=== PATIENT | male | born 1940 | race Caucasian/White ===

== ENCOUNTER → 2016-10-08 | Outpatient (CLI) | payer OTHER ==
[~2016-10-08] MED LIST: ASPI81TA28 PO; CIPR-255 PO; CLOP1TAB5 PO; CMD5 PO; CODCAP; FLM4 PO; GARLTAB3 PO; GLC500 PO; HYDROXYUREA PO; IBUP-103 PO; LISI20TA55 PO; LOVA10TA3 PO; LSN/2025 PO; LVNIS120 SQ; MULT-506 PO; MULTTAB27 PO; OXYC7.5T65 PO; PHEN-775 PO; PLV75 PO; POTA-327 PO; PRD/1 PO; ROSU5TAB PO; ULT50X PO
[2016-10-08 10:33] LABS: ALT/SGPT 21 U/L (12-78); BLOOD UREA NITROGEN 21 mg/dl (7-18); BUN/CREATININE RATIO 17.4 (10-20); CALCIUM 8.8 mg/dl (8.5-10.1); CARBON DIOXIDE 24 mmol/L (21-32); CHLORIDE 102 mmol/L (98-107); GLUCOSE 222 mg/dl (70-99); POTASSIUM 3.7 mmol/L (3.5-5.1); SODIUM 137 mmol/L (136-145)
[2016-10-08 10:36] LABS: ALB/GLOB RATIO 1.1 (0.9-2); ALKALINE PHOSPHATASE 76 U/L (45-117); AST/SGOT 17 U/L (15-37)
[2016-10-08 10:49] LABS: BASO % 0.3 %; BASO ABS # 0.02 K/uL (0-0.2); COMPLETE YES; EOS % 0.6 %; HEMATOCRIT 39.2 % (42-52); IG% 0.1 %; LYMPH ABS # 1.51 K/uL (1.2-3.4); MEAN CELL VOLUME 101.6 fL (80-100); MEAN CORPUSCULAR HEMOGLOBIN 36.3 pg (25-34); MEAN CORPUSCULAR HGB CONC 35.7 g/dl (32-36); MEAN PLATELET VOLUME 10.6 fL (7.4-10.4); MONO % 4.7 %; NEUT % 75.3 %; PLATELET COUNT 242 K/uL (130-400); RED BLOOD COUNT 3.86 M/uL (4.7-6.1); WHITE BLOOD COUNT 7.94 K/uL (4.8-10.8)
== END | disposition home or self-care (01) ==
LOC: C.LAB 09:24
PROVIDERS: ATTEND Nurse Practitioner Family
DX: D45 Polycythemia vera (principal)

== ENCOUNTER 2016-11-15 09:14 | Emergency (ER) | payer OTHER ==
[~2016-11-15] VITALS: Ht 175.3 cm; Wt 81.6 kg
[~2016-11-15 09:14] MED LIST changes: -CIPR-255 PO; -CLOP1TAB5 PO; -CMD5 PO; -CODCAP; -GARLTAB3 PO; -LOVA10TA3 PO; -LSN/2025 PO; -LVNIS120 SQ; -MULT-506 PO; -OXYC7.5T65 PO; -PHEN-775 PO; -PLV75 PO; -ROSU5TAB PO; -ULT50X PO
[2016-11-15 09:23] VITALS: TEMP 36.7; Ht 175.3 cm; Wt 81.6 kg
[2016-11-15] MEDS ORDERED: LOVA10TA3 PO (09:38)
--- NOTE | 2016-11-15 09:42 | EMERGENCY ROOM VISIT NOTE ---
ED Visit Note First contact with patient: 09:25 Patient was seen by our PA/YOUTH CARE SPECIALIST. I was involved in the patient's care and did evaluate the patient myself. I was involved in the care throughout the ER stay. The patient presents with a piece of tick still caught in the right posterior proximal thigh. There is no surrounding cellulitis. He does have concerns for the tick being a deer tick. Doxycycline prophylaxis will be given, the remaining portion of the tick will be removed.
[2016-11-15] MEDS ORDERED: DOXYCYCLINE HYCLATE 100 MG CAP PO ONE (09:45)
[2016-11-15] MEDS ORDERED: XYLOCAINE 1%/SOD BICARB 20 ML VIAL INFIL ONE (09:46)
[2016-11-15 10:18] VITALS: BP 144/81; PULSE 78; O2SAT 98
--- NOTE | 2016-11-15 10:21 | EMERGENCY ROOM VISIT NOTE ---
History First contact with patient: 09:25 Chief Complaint: BITE Stated Complaint: PART OF A TICK IN LEG History of Present Illness The patient is a 76 year old male who presents to the Emergency Room with complaints of a tick bite to the right hip. The patient is uncertain when he picked up a tick. He was outside on Friday. He just noticed the tick this morning. He attempted to remove it but only removed part of it. He is here requesting remaining tick removal. He denies any pain to the area. Tetanus immunization is up-to-date. Review of Systems 10 system review was performed and was negative except for pertinent positives and negatives as indicated in history of present illness Past Medical/Surgical History Medical Problems: (1) Benign hypertension (2) Diabetes (3) Hyperlipidemia (4) Right Hip Surgery Social History Smoking Status: Former Smoker Drug Use: none Marital Status: Housing Status: lives with family Occupation Status: retired Current/Historical Medications Scheduled Aspirin (Aspirin Ec), 81 MG PO DAILY Lisinopril/Hctz (Prinzide 20-25MG), 1 TAB PO DAILY Lovastatin (Mevacor), 10 MG PO HS Metformin HCL (Glucophage *), 1,000 MG PO BID Multiple Vitamins W/ Minerals (Oncovite), 1 TAB PO QD@08 Potassium Ext Rel (Klor-Con), 10 MEQ PO DAILY Prednisone (Prednisone), 2 MG PO QPM Tamsulosin Hcl (Flomax *), 0.4 MG PO DAILY [Hydroxyurea], 500 MG PO BID Scheduled PRN Ibuprofen Tab (Advil), 400 MG PO Q6 PRN for Pain Allergies Coded Allergies: Cilostazol (Verified Allergy, Unknown, DIARRHEA, 11/15/16) Sulfa Antibiotics (Verified Allergy, Unknown, HIVES, 11/15/16) Physical Exam Vital Signs Date Time Temp Pulse Resp B/P Pulse Ox O2 Delivery O2 Flow Rate FiO2 11/15/16 09:23 36.7 79 17 180/74 94 Room Air Physical Exam CONSTITUTIONAL: Healthy and well nourished. Alert and oriented X 3 with positive affect. She does not appear in any acute distress. HEENT: Normocephalic, atraumatic. Pupils equal, round and reactive. NECK: Full active range of motion without discomfort. RESPIRATORY: Clear to auscultation bilaterally with no wheezing, crackles, rhonchi or stridor. CARDIOVASCULAR: Regular rate and rhythm with no murmurs, rubs or gallops. MUSCULOSKELETAL: Examination of the right posterior lateral hip region shows a remnant tick foreign body. There is a noticeable 8mm venous aguero. There is no overriding erythema or induration. Prior surgical incision is noted. INTEGUMENTARY: No rash or other significant dermatologic conditions noted. NEUROLOGIC: No focal neurologic deficits noted. Medical Decision & Procedures Procedure Patient consented to tick removal under local anesthesia. The area was painted with iodine and allowed to dry. Sterile foot was created. Using buffered 1% lidocaine without epinephrine, and underlying local wheal was administered. A 27-gauge needle was then used to elevate the tick while sharply excising the tick with a #11 scalpel. The area was then further cleansed and covered with a bacitracin Band-Aid. ED Course Patient history and physical exam were performed. Nurse's notes were reviewed. Removal was performed under local anesthesia. Because of the uncertainty as to how long the tick has been attached, the patient was prophylactically treated with doxycycline 200 mg orally. The patient was instructed to watch for any signs of wound infection, along with rash consistent with erythema migrans. He was instructed to follow-up with his PCP for any developing rash, fever, joint aches, headache or other flulike symptoms. The patient was happy with plan of care, and voiced understanding of all discharge instructions. The patient was also seen and evaluated by Dr. Brito, ED attending physician, who agrees with workup and plan of care. Impression Primary Impression: Tick bite of hip Departure Information Dispostion Home / Self-Care Forms HOME CARE DOCUMENTATION FORM, IMPORTANT VISIT INFORMATION Patient Instructions [facility] [employer] Additional Instructions Keep wound clean and covered with an antibiotic ointment and bandage until it heals. Watch for any worsening redness around the tick bite site. Over the next month, watch for any developing "bull's-eye" lesion, fevers, chills, headaches or joint aches. If this develops, contact her family doctor for further evaluation. Problem Qualifiers Primary Impression: Tick bite of hip Encounter type: initial encounter Laterality: right Qualified Codes: S70.261A - Insect bite (nonvenomous), right hip, initial encounter; W57.XXXA - Bitten or stung by nonvenomous insect and other nonvenomous arthropods, initial encounter
[2017-02-03] MEDS ORDERED: LSN/2025 PO (08:14)
[2017-02-03] MEDS ORDERED: MULT-506 PO (08:14)
[2017-02-03] MEDS ORDERED: GARLTAB3 PO (08:14)
[2017-02-20] MEDS ORDERED: CODCAP4 (09:34)
[2017-02-20] MEDS ORDERED: PHEN-775 PO (12:10)
[2017-02-20] MEDS ORDERED: OXYC7.5T65 PO (12:10)
[2017-02-20] MEDS ORDERED: CIPR-255 PO (12:10)
[2017-03-26] MEDS ORDERED: PLV75 PO (16:15)
[2017-04-07] MEDS ORDERED: LVNIS120 SQ (13:59)
[2017-04-07] MEDS ORDERED: ULT50X PO (13:59)
[2017-04-07] MEDS ORDERED: CMD5 PO (13:59)
== END 2016-11-15 10:18 | disposition home or self-care (01) ==
LOC: C.EDB 09:15 → C.EDA 10:18
DX: S71.051A Open bite, right hip, initial encounter (principal); W57.XXXA Bitten or stung by nonvenomous insect and other nonvenomous arthropods, initial encounter; I10 Essential (primary) hypertension; E78.5 Hyperlipidemia, unspecified; E11.9 Type 2 diabetes mellitus without complications; Z98.890 Other specified postprocedural states; Z87.891 Personal history of nicotine dependence; Z79.82 Long term (current) use of aspirin; Z79.84 Long term (current) use of oral hypoglycemic drugs; Z79.899 Other long term (current) drug therapy; Z88.2 Allergy status to sulfonamides; Z88.8 Allergy status to other drugs, medicaments and biological substances

== ENCOUNTER → 2016-12-24 | Outpatient (CLI) | payer OTHER ==
[~2016-12-24] MED LIST changes: +CIPR-255 PO; +CLOP1TAB5 PO; +CMD5 PO; +CODCAP4; +GARLTAB3 PO; +LOVA10TA3 PO; +LSN/2025 PO; +LVNIS120 SQ; +MULT-506 PO; +OXYC7.5T65 PO; +PHEN-775 PO; +PLV75 PO; +ROSU5TAB PO; +ULT50X PO
[2016-12-24 09:49] LABS: BASO % 0.3 %; BASO ABS # 0.02 K/uL (0-0.2); COMPLETE YES; EOS % 0.5 %; HEMATOCRIT 40.7 % (42-52); IG% 0.3 %; MEAN CELL VOLUME 104.6 fL (80-100); MEAN CORPUSCULAR HEMOGLOBIN 36.5 pg (25-34); MEAN CORPUSCULAR HGB CONC 34.9 g/dl (32-36); MONO % 5.4 %; NEUT % 73.5 %; PLATELET COUNT 242 K/uL (130-400); RED BLOOD COUNT 3.89 M/uL (4.7-6.1); WHITE BLOOD COUNT 7.99 K/uL (4.8-10.8)
[2016-12-24 10:00] LABS: ALT/SGPT 25 U/L (12-78); BLOOD UREA NITROGEN 24 mg/dl (7-18); BUN/CREATININE RATIO 21.4 (10-20); CARBON DIOXIDE 25 mmol/L (21-32); CHLORIDE 107 mmol/L (98-107); CHOLESTEROL 119 mg/dl (0-200); GLUCOSE 121 mg/dl (70-99); POTASSIUM 3.8 mmol/L (3.5-5.1); SODIUM 142 mmol/L (136-145); TRIGLYCERIDES 114 mg/dl (0-150); VERY LOW DENSITY LIPOPROT CALC 23 mg/dl
[2016-12-24 10:03] LABS: ALB/GLOB RATIO 1.4 (0.9-2); ALKALINE PHOSPHATASE 64 U/L (45-117); AST/SGOT 16 U/L (15-37); HDL CHOLESTEROL 30 mg/dl; LDL CHOLESTEROL CALCULATED 66 mg/dl
[2016-12-24 10:08] LABS: CALCIUM 9.8 mg/dl (8.5-10.1)
[2016-12-24 10:30] LABS: ESTIMATED AVERAGE GLUCOSE 143 mg/dl; HA1C FLAG Normal (Normal)
== END | disposition home or self-care (01) ==
LOC: C.LAB 08:22
PROVIDERS: ATTEND Internal Medicine Pulmonary Disease
DX: I10 Essential (primary) hypertension (principal); E11.9 Type 2 diabetes mellitus without complications; E78.5 Hyperlipidemia, unspecified; I25.10 Atherosclerotic heart disease of native coronary artery without angina pectoris

== ENCOUNTER 2017-02-20 08:40 | Day surgery (SDC) | payer OTHER ==
[2017-02-03 08:16] VITALS: BMI 25.0
--- NOTE | 2017-02-03 09:00 | PAT Medication Instructions ---
Service Date Feb 03, 2017. Current Home Medication List Aspirin (Aspirin Ec), 81 MG PO QPM Hctz/Lisinopril (Lisinopril/Hctz 20/25 Mg), 1 TAB PO QAM Ibuprofen Tab (Advil), 200 MG PO Q6 PRN for Pain Lovastatin (Mevacor), 10 MG PO NOON Metformin HCL (Glucophage *), 1,000 MG PO BID Multivitamin (Multivitamin), 1 TAB PO QAM Potassium Ext Rel (Klor-Con), 10 MEQ PO QPM Prednisone (Prednisone), 3 MG PO QPM Tamsulosin Hcl (Flomax *), 0.4 MG PO QPM [Garlic], 1 TAB PO NOON [Hydroxyurea], 500 MG PO BID Medication Instructions For Your Scheduled Surgery - Check with surgeon for instructions: Ibuprofen Tab (Advil), 200 MG PO Q6 PRN for Pain - Check with surgeon/family resource specialist for instructions: Aspirin (Aspirin Ec), 81 MG PO QPM - Hold the following medications 2 weeks prior to surgery: [Garlic], 1 TAB PO NOON - Check with supervisor inspection and testing (Dr. Rodriguez) for instructions: [Hydroxyurea], 500 MG PO BID - Hold the following medications 48 hours prior to surgery: Metformin HCL (Glucophage *), 1,000 MG PO BID - Hold the following medications the morning of surgery: Multivitamin (Multivitamin), 1 TAB PO QAM Hctz/Lisinopril (Lisinopril/Hctz 20/25 Mg), 1 TAB PO QAM - Take the following medications as scheduled the night before surgery: Prednisone (Prednisone), 3 MG PO QPM Tamsulosin Hcl (Flomax *), 0.4 MG PO QPM Potassium Ext Rel (Klor-Con), 10 MEQ PO QPM Lovastatin (Mevacor), 10 MG PO NOON If you have any questions please call us at [phone] or [phone] or [phone]
--- NOTE | 2017-02-03 09:28 | DIAGNOSTIC IMAGING REPORT ---
CHEST PREADMISSION(PA/LAT) CLINICAL HISTORY: PAT preoperative evaluation COMPARISON STUDY: 09/14/2012 FINDINGS: Chronic bibasilar interstitial change. Upper lungs are clear. No evidence for cardiac enlargement. Diaphragms smooth. IMPRESSION: Chronic basilar interstitial change. No acute process. Electronically signed by: Shun Batista M.D. 02/03/2017 9:27 AM Dictated Date/Time: 02/03/2017 9:24 AM
--- NOTE | 2017-02-03 09:30 | DIAGNOSTIC IMAGING REPORT ---
CERVICAL SPINE 3 VIEWS HISTORY: Preoperative evaluation PREOP, RHEUMATOID ARTHRITIS COMPARISON: None. FINDINGS: The cervical spine is visualized from C1 through the superior endplate of T1. There is no fracture. No evidence for positional subluxation. The C1-C2 complex remains intact. Considerable degenerative disc change primarily from C5 through C7. IMPRESSION: Considerable degenerative change. No evidence for positional subluxation. Electronically signed by: hSun Batista M.D. 02/03/2017 9:29 AM Dictated Date/Time: 02/03/2017 9:28 AM
[2017-02-03 09:37] LABS: BASO % 0.3 %; BASO ABS # 0.02 K/uL (0-0.2); COMPLETE YES; EOS % 0.4 %; HEMATOCRIT 40.9 % (42-52); IG% 0.3 %; LYMPH % 16.8 %; LYMPH ABS # 1.19 K/uL (1.2-3.4); MEAN CELL VOLUME 103.8 fL (80-100); MEAN CORPUSCULAR HEMOGLOBIN 35.5 pg (25-34); MEAN CORPUSCULAR HGB CONC 34.2 g/dl (32-36); MEAN PLATELET VOLUME 10.8 fL (7.4-10.4); MONO % 6.6 %; NEUT % 75.6 %; PLATELET COUNT 235 K/uL (130-400); RED BLOOD COUNT 3.94 M/uL (4.7-6.1); WHITE BLOOD COUNT 7.09 K/uL (4.8-10.8)
[2017-02-03 09:42] LABS: URINE APPEARANCE CLEAR (CLEAR); URINE BILIRUBIN NEG (NEG); URINE COLOR YELLOW; URINE NITRITE NEG (NEG); URINE SPECIFIC GRAVITY 1.023 (1.000-1.030); UROBILINOGEN NEG (NEG)
[2017-02-03 09:45] LABS: MANUAL MICROSCOPIC REQUIRED? NO; REVIEW REQ? NO
[2017-02-03 10:42] LABS: BUN/CREATININE RATIO 15.4 (10-20); CALCIUM 8.7 mg/dl (8.5-10.1); CREATININE 1.2 mg/dl (0.60-1.40); POTASSIUM 3.9 mmol/L (3.5-5.1)
[~2017-02-20] VITALS: Ht 175.3 cm; Wt 79.6 kg
[~2017-02-20 08:40] MED LIST changes: -CIPR-255 PO; +CIPROFLOXACIN / D5W 400 MG IV SCH; -CLOP1TAB5 PO; -CMD5 PO; -CODCAP4; +LACTATED RINGER'S 1000ML 1,000 ML IV SCH; -LISI20TA55 PO; -LVNIS120 SQ; -MULTTAB27 PO; -OXYC7.5T65 PO; -PHEN-775 PO; -PLV75 PO; -ROSU5TAB PO; -ULT50X PO
[2017-02-20 08:51] VITALS: Ht 175.3 cm; Wt 79.6 kg
[2017-02-20] MEDS ORDERED: CODCAP (09:34)
[2017-02-20] MEDS ORDERED: FENTANYL CITRATE INJ 50 MCG/1 ML 2 ML VIAL ONE (10:58)
[2017-02-20] MEDS ORDERED: ONDANSETRON INJ 2 MG/ML 2 ML VIAL ONE (10:58)
[2017-02-20] MEDS ORDERED: LIDOCAINE HCL 2% 2 ML VIAL (20MG/ML) ONE (10:58)
[2017-02-20] MEDS ORDERED: MIDAZOLAM HCL 1 MG/ML 2ML VIAL ONE (10:58)
[2017-02-20] MEDS ORDERED: DEXAMETHASONE SOD INJ 4 MG/ML VIAL ONE (10:58)
[2017-02-20] MEDS ORDERED: PROPOFOL IV EMULSION 10 MG/ML 20 ML VIAL IV ONE (10:58)
--- NOTE | 2017-02-20 11:16 | History & Physical Bridge Note ---
H&P Re-Evaluation Bridge Note: I have examined the patient, reviewed the History & Physical and in the interval since the performance of the History & Physical I have noted the following changes of clinical significance: No changes noted
[2017-02-20] MEDS ORDERED: EpHEDrine SULFATE INJ 50 MG/ML AMP IV PRN (12:00)
[2017-02-20] MEDS ORDERED: ONDANSETRON INJ 2 MG/ML 2 ML VIAL IV PRN (12:00)
[2017-02-20] MEDS ORDERED: ATROPINE SULFATE 0.1 MG/ML 5ML SYR IV PRN (12:00)
[2017-02-20] MEDS ORDERED: FENTANYL CITRATE INJ 50 MCG/1 ML 2 ML VIAL IV PRN (12:00)
[2017-02-20] MEDS ORDERED: PHEN-775 PO (12:10)
[2017-02-20] MEDS ORDERED: CIPR-255 PO (12:10)
[2017-02-20] MEDS ORDERED: OXYC7.5T65 PO (12:10)
--- NOTE | 2017-02-20 12:11 | Discharge Instructions ---
Discharge Instructions Date of Service Feb 20, 2017. Admission Reason for Admission: Bladder Stone, Benign Prostatic Hypertrophy Discharge Discharge Diagnosis / Problem: BPH and bladder stone s/p TURP and cystolithopaxy Discharge Goals Goal(s): Decrease discomfort, Improve function, Improve disease control, Therapeutic intervention Activity Recommendations Activity Limitations: as noted below Lifting Limitations: no more than 25 pounds, gradually increase as tolerated ( x 5 days) Exercise/Sports Limitations: rest today, gradually increase as tolerated (x 5 days) May Resume Sexual Activity: after follow-up appointment Shower/Bathe: may shower/bathe in 3 days Driving or Machine Use: resume 1 day after discharge (after catheter is removed ) . Instructions / Follow-Up Instructions / Follow-Up In office as scheduled for postop appointment and catheter removal Discharge Diet Recommended Diet: Regular Diet (good fluid intake) Procedures Procedures Performed: Laser cystolithopaxy, bipolar button vaporization of the prostate Pending Studies Studies pending at discharge: yes List of pending studies: Stone analysis Laboratory Results Hemoglobin A1c Test 12/24/16 08:34 Range/Units Estimated Average Glucose 143 mg/dl Hemoglobin A1c 6.6 H 4.5-5.6 % Lipid Panel Test 12/24/16 08:34 Range/Units Triglycerides Level 114 0-150 mg/dl Cholesterol Level 119 0-200 mg/dl HDL Cholesterol 30 mg/dl Cholesterol/HDL Ratio 4.0 LDL Cholesterol, Calculated 66 mg/dl Medical Emergencies . Who to Call and When: Medical Emergencies: If at any time you feel your situation is an emergency, please call 911 immediately. . Non-Emergent Contact Non-Emergency issues call your: Urologist Call Non-Emergent contact if: you have a fever, temperature is above 101, your pain is not controlled, your pain is worsening, your pain is unusual for you, your pain is concerning you, you have any medication questions . . "Provider Documentation" section prepared by Calvin Preston. . VTE Core Measure Inpt VTE Proph given/why not?: SCD's [place] Drug Monitoring Program Search Results: patient reviewed within database, no issues identified
[2017-02-20] MEDS ORDERED: EpHEDrine SULFATE 50MG/5ML SYR ONE (12:48)
[2017-02-20] MEDS ORDERED: BELLADONNA/OPIUM SUPP 60 MG SUPP PR ONE (13:03)
--- NOTE | 2017-02-20 13:29 | [facility] Post Operative Brief Note ---
Immediate Operative Summary Operative Date Feb 20, 2017. Pre-Operative Diagnosis Benign Prostatic Hypertrophy with Urinary Obstruction, Bladder calculus Post-Operative Diagnosis Same Procedure(s) Performed Laser cystolithopaxy, bipolar button vaporization of the prostate Surgeon Dr. Anselmo Preston Ripsaw Matcher Surgeon(s) none Estimated Blood Loss 10 cc Findings Stones fragmented and removed, open fossa with excellent hemostasis after vaporization of prostate Specimens A: Bladder stones for chemical analysis Drains 22 fr 10 cc H2O Anesthesia GALMA Complication(s) None Disposition Recovery Room / PACU
--- NOTE | 2017-02-20 13:33 | [facility] Operative Report ---
Operative Report Operative Date Feb 20, 2017. Pre-Operative Diagnosis Benign Prostatic Hypertrophy with Urinary Obstruction, Bladder calculus Post-Operative Diagnosis Same Procedure(s) Performed Laser cystolithopaxy, bipolar button vaporization of the prostate Surgeon Dr. Anselmo Preston Fruit And Vegetable Packer Surgeon(s) none Estimated Blood Loss 10 cc Findings Stones fragmented and removed, open fossa with excellent hemostasis after vaporization of prostate Specimens A: Bladder stones for chemical analysis Drains 22 fr 10 cc H2O Anesthesia GALMA Complication(s) None Disposition Recovery Room / PACU Indications BPH, bladder stones Description of Procedure Patient was properly identified and brought to the operative suite after identification of appropriate consent of the chart. General anesthesia with laryngeal mask was initiated and patient was prepped and draped in the dorsal lithotomy position. Intravenous Cipro Floxin was used for IV antibiotic coverage and SCDs used for DVT prophylaxis. 22 American rigid cystoscope was passed into the bladder direct visualization. This demonstrated a short obstructive prostate gland with some at risk urethral tissue without haydee stricture. Bladder was surveyed in its entirety demonstrating several multiple bladder stones, largest being approximately 1 cm in size, with no intravesical tumors, papillary lesions, mucosal abnormalities. Ureteral orifices were noted in the normal anatomic position, history of resection on the left-hand side and were effluxing clear urine. Using a 1000 laser fiber the stones were fragmented and smaller pieces and then flushed free and grasped using alligator forceps as necessary. When the bladder was noted to be free of stone material the cystoscope was removed and a 26 American resectoscope was introduced into the bladder using a visual obturator. Bipolar button was used to circumferentially vaporize the prostate gland until the fossa was unobstructed. Relaxing incisions were made at the 5 and 7 o'clock position to avoid bladder neck contracture in the future. Ureteral orifices were well removed from the bladder neck and remained intact throughout the procedure. At the end of the case excellent hemostasis was obtained using coagulation setting as necessary. After this was complete the prosthetic fossa was noted to be open. Resectoscope was removed and 22 American Andrade catheter was placed with a 10 mL balloon. Catheter was placed to gravity drainage after being irrigated with clear return. Belladonna and opium suppository was provided for postoperative analgesia. Anesthesia was reversed patient was transferred to recovery room in stable condition. Patient's provided with a prescription for ciprofloxacin Percocet and Pyridium for postoperative coverage. Trial void is tomorrow and outpatient appointments are confirmed. He is instructed to contact our service should he note any fevers chills nausea vomiting or other significant difficulties in the postoperative period. I attest to the content of the Intraoperative Record and any orders documented therein. Any exceptions are noted below.
--- NOTE | 2017-02-20 13:59 | Anesthesiology Progress Note ---
Anesthesia Post Op Note Date & Time Feb 20, 2017 at 13:59 Vital Signs Pain Intensity: 0 Vital Signs Past 12 Hours Date Time Temp Pulse Resp B/P (MAP) Pulse Ox O2 Delivery O2 Flow Rate FiO2 02/20/17 13:50 68 16 123/62 92 Room Air 02/20/17 13:40 70 16 124/60 92 Oxymask 10 02/20/17 13:30 65 16 108/57 95 Oxymask 10 02/20/17 13:23 36.6 70 16 107/57 92 Oxymask 10 Notes Mental Status: alert / awake / arousable, participated in evaluation Pt Amnestic to Procedure: Yes Nausea / Vomiting: adequately controlled Pain: adequately controlled Airway Patency, RR, SpO2: stable & adequate BP & HR: stable & adequate Hydration State: stable & adequate Anesthetic Complications: no major complications apparent
[2017-02-20 14:20] VITALS: BP 129/67; PULSE 71; TEMP 37; O2SAT 92
[2017-02-20 14:50] VITALS: BP 144/64; PULSE 59; TEMP 37; O2SAT 92
[2017-03-26] MEDS ORDERED: PLV75 PO (16:15)
[2017-04-07] MEDS ORDERED: LVNIS120 SQ (13:59)
[2017-04-07] MEDS ORDERED: CMD5 PO (13:59)
[2017-04-07] MEDS ORDERED: ULT50X PO (13:59)
== END 2017-02-20 15:30 | disposition home or self-care (01) ==
LOC: C.ACU 08:40
PROVIDERS: ATTEND Urology
DX: N40.1 Benign prostatic hyperplasia with lower urinary tract symptoms (principal); N13.8 Other obstructive and reflux uropathy; N21.0 Calculus in bladder; I25.10 Atherosclerotic heart disease of native coronary artery without angina pectoris; E11.9 Type 2 diabetes mellitus without complications; E78.5 Hyperlipidemia, unspecified; I10 Essential (primary) hypertension; M16.9 Osteoarthritis of hip, unspecified; I73.9 Peripheral vascular disease, unspecified; Z86.718 Personal history of other venous thrombosis and embolism; Z87.891 Personal history of nicotine dependence; Z79.52 Long term (current) use of systemic steroids; Z85.51 Personal history of malignant neoplasm of bladder; Z96.649 Presence of unspecified artificial hip joint; Z80.0 Family history of malignant neoplasm of digestive organs; Z82.49 Family history of ischemic heart disease and other diseases of the circulatory system

== ENCOUNTER → 2017-03-13 | Outpatient (CLI) | payer OTHER ==
[~2017-03-13] MED LIST changes: +CIPR-255 PO; -CIPROFLOXACIN / D5W 400 MG IV SCH; +CLOP1TAB5 PO; +CMD5 PO; +CODCAP; -LACTATED RINGER'S 1000ML 1,000 ML IV SCH; +LVNIS120 SQ; +OXYC7.5T65 PO; +PLV75 PO; +ROSU5TAB PO; +ULT50X PO
[2017-03-13 17:26] LABS: BASO % 0.2 %; BASO ABS # 0.02 K/uL (0-0.2); COMPLETE YES; EOS % 0.6 %; HEMATOCRIT 41.9 % (42-52); IG% 0.4 %; LYMPH % 19.3 %; LYMPH ABS # 1.55 K/uL (1.2-3.4); MEAN CORPUSCULAR HEMOGLOBIN 35.3 pg (25-34); MEAN CORPUSCULAR HGB CONC 33.7 g/dl (32-36); MEAN PLATELET VOLUME 10.8 fL (7.4-10.4); MONO % 6.5 %; PLATELET COUNT 270 K/uL (130-400); RED BLOOD COUNT 3.99 M/uL (4.7-6.1); WHITE BLOOD COUNT 8.05 K/uL (4.8-10.8)
[2017-03-13 17:38] LABS: PROTHROMBIN TIME (PATIENT) 11.1 SECONDS (9.0-12.0)
[2017-03-13 17:51] LABS: ALT/SGPT 21 U/L (12-78); AST/SGOT 13 U/L (15-37); BLOOD UREA NITROGEN 25 mg/dl (7-18); BUN/CREATININE RATIO 19.3 (10-20); CALCIUM 8.9 mg/dl (8.5-10.1); CARBON DIOXIDE 28 mmol/L (21-32); CHLORIDE 111 mmol/L (98-107); GLUCOSE 93 mg/dl (70-99); POTASSIUM 4.1 mmol/L (3.5-5.1); SODIUM 143 mmol/L (136-145)
[2017-03-13 17:53] LABS: ALB/GLOB RATIO 1.1 (0.9-2); ALKALINE PHOSPHATASE 73 U/L (45-117)
== END | disposition home or self-care (01) ==
LOC: C.LAB1850 16:47
PROVIDERS: ATTEND Internal Medicine Interventional Cardiology
DX: I73.9 Peripheral vascular disease, unspecified (principal)

== ENCOUNTER → 2017-03-26 | Day surgery (SDC) | payer OTHER ==
[~2017-03-26] VITALS: Ht 175.3 cm; Wt 79.0 kg
[2017-03-26] VITALS (10 sets, daily range): BP systolic 138–185; BP diastolic 58–85; PULSE 59–72; TEMP 36.5–37; O2SAT 90–95; Ht 175.3 cm; Wt 79.0 kg
[~2017-03-26] MED LIST changes: +ACETAMINOPHEN 325 MG TAB PO PRN; +ASPIRIN 325 MG ECTAB PO STA; +ATROPINE SULFATE 0.1 MG/ML 10 ML SYR ONE; +CLOPIDOGREL BISULFATE 300 MG TAB PO STA; +FENTANYL CITRATE INJ 50 MCG/1 ML 2 ML VIAL IV ONE; +FENTANYL CITRATE INJ 50 MCG/1 ML 2 ML VIAL ONE; +HEPARIN SOD (PORCINE) 1000 UNIT/ML 10 ML VIAL IV ONE; +HEPARIN SOD (PORCINE) 1000 UNIT/ML 10 ML VIAL ONE; +HEPARIN SOD (PORCINE) 5000 UNIT/ML 1 ML VIAL ONE; +IODIXANOL (VISIPAQUE) 270 MG/ML 150ML XX ONE; +LIDOCAINE HCL 1% 20 ML VIAL INJ ONE; +MIDAZOLAM HCL 1 MG/ML 2ML VIAL IV ONE; +MIDAZOLAM HCL 1 MG/ML 2ML VIAL ONE; +MIDAZOLAM HCL 5 MG/ML 1 ML VIAL ONE; +NITROGLYCERIN 5 MG/ML 10 ML VIAL ONE; +NITROGLYCERIN/D5W 100MCG/ML 20ML SYR ONE; +NiCARDipine HCL INJ 2.5 MG/ML 10 ML AMP ONE; +ONDANSETRON INJ 2 MG/ML 2 ML VIAL ONE; +SODIUM CHLORIDE 0.9% 1000ML 1,000 ML IV SCH
--- NOTE | 2017-03-26 07:50 | Procedure Note ---
Pre-Mod Sedation Assessment General Date of Moderate Sedation: Mar 26, 2017. Vital Signs: Vital Signs Past 12 Hours Date Time Temp Pulse Resp B/P (MAP) Pulse Ox O2 Delivery O2 Flow Rate FiO2 03/26/17 06:51 36.5 62 18 185/85 (118) 95 Room Air Review Cardiovascular: regular rate, rhythm, no edema, + systolic murmur Abdomen: normal bowel sounds, non tender Lungs: chest non-tender, lungs clear Airway Class: III Pre-Sedation Airway Assessment Oral Cavity: Dentures Able to Visualize Vocal Cords: No Short Thick Neck: No Hx of Sleep Apnea: No Smoking Status: Never Smoker Mallampati Classification: Class III ASA Classification: Class III Procedure Planning Contraindications-for Mod Sed: None Yes Notes The planned sedation has been discussed with the patient and consent obtained. I have identified the patient, determined the appropriateness of sedation and have assessed the patient immediately prior to the procedure. All medicine(s) and interventions are by my order.
--- NOTE | 2017-03-26 12:02 | Procedure Note ---
Post-Mod Sedation Assessment General Date of Moderate Sedation Mar 26, 2017. Vital Signs: Vital Signs Past 12 Hours Date Time Temp Pulse Resp B/P (MAP) Pulse Ox O2 Delivery O2 Flow Rate FiO2 03/26/17 06:51 36.5 62 18 185/85 (118) 95 Room Air Review - Discharge Criteria Vital Signs Stable: Yes Alert/Oriented/Conversant: Yes Returned to Baseline Mental St: Yes Nausea Absent/Minimal: Yes Pain/Discomfort/Absent/Minimal: Yes Normal/Baseline Respirations: Yes Active Bleeding?: No Pt Received D/C Instructions: N/A Prescriptions Given: None Specific Proced. D/C Criteria Distal Pulses Present (Cardiac: Yes Groin site assessed-Card Cath: Yes Voided Prior To Discharge: N/A Discharged Patients Adult Escort/Transportation: Yes
--- NOTE | 2017-03-26 16:18 | Discharge Instructions ---
Discharge Instructions Procedure Procedure Date: Mar 26, 2017. Reason for Visit: Peripheral Artery Disease. Discharge Discharge Date: Mar 26, 2017. Discharge Diagnosis: PAD Last Recorded Wt (Kilograms): 79 Anesthesia Post Anesthesia Instructions: If you have had General Anesthesia or IV Sedation: * Do not drive today. * Resume driving when surgeon permits. * Do not make important decisions or sign legal documents today. * Call surgeon for: 1. Temperature elevations greater than 101 degrees F. 2. Uncontrollable pain. 3. Excessive bleeding. 4. Persistent nausea and vomiting. 5. Medication intolerance (nausea, vomiting or rash). * For nausea and vomiting use only clear liquids such as: tea, soda, bouillon until nausea subsides, then gradually increase diet as tolerated. * If you have any concerns or questions, call your surgeon's office. If physician is unavailable and it is an emergency, call 911 or go to the nearest emergency room. Instructions Activity Recommendations: limitations as noted below Recommended Home Diet: resume previous diet, diabetes diet Allergies: Coded Allergies: Sulfa Antibiotics (Verified Allergy, Intermediate, HIVES, 03/26/17) Atorvastatin (Verified Adverse Reaction, Mild, LEG CRAMPS, 03/26/17) Cilostazol (Verified Adverse Reaction, Mild, DIARRHEA, 03/26/17) Follow Up Additional Instructions: ACTIVITY RECOMMENDATIONS: It is common to feel weak and fatigue for a few days. * Do not drive or operate any motorized equipment for the next three days. * Limit stair usage (2 or 3 trips a day only) for the next three days. * Do not lift anything heavier than 10 pounds for the next three days. * Do not engage in vigorous exercise or any sports for the next five days. * You may shower the day after your procedure, but do not immerse the area for three days. Cleanse the site gently with soap and water. SPECIAL CARE INSTRUCTIONS: * You may replace the pressure dressing or band-aid the morning after the procedure. * After your procedure, it is normal to have a small bruise or small lump at the site. Examine your site daily for any change in the bruise or lump, redness, swelling, drainage or numbness. Notify your doctor if any change. BLEEDING: * If there is a small amount of bleeding at the site, lie down and apply firm pressure with a clean cloth for ten minutes. When the bleeding stops, lie quietly keeping the procedure limb straight for six hours. Notify your doctor as soon as possible. * If the bleeding does not stop after ten minutes or if there is a large amount of bleeding or spurting, call 911 immediately. Continue to lie down and hold firm pressure until help arrives. SKIN IRRITATION: * You may experience some redness and/or swelling in the area where radiation was administered. If any skin irritation occurs, please contact your family physician. FOLLOW UP VISIT: Keep any scheduled doctor appointments. Follow-up with: Wound clinic next week Dr. Ramos in 1 month [facility] Recommendations: Call your doctor if: * Temperature above 101 degrees * Pain not relieved by pain medicine ordered * There is increased drainage or redness from any incision * You have any unanswered questions or concerns. Your Doctors Instructions noted above were prepared by provider Edi Ramos. Patient Signature Section: Patient Instructions Signature Page Edy Mazariegos Patient (or Guardian) Signature/Date: I have read and understand the instructions given to me by my caregivers. Caregiver/RN/Doctor Signature/Date: The above-named patient and/or guardian has received patient instructions on this date. + Original Patient Signature Page (only) stays with chart. Please make copy for patient.
--- NOTE | 2017-04-15 16:34 | [facility] Operative Report ---
Operative Report Operative Date Mar 26, 2017. Pre-Operative Diagnosis peripheral artery disease Post-Operative Diagnosis same Procedure(s) Performed Bilateral Lower Extremity Angiogram, Percutaneous Transluminal Angioplasty and Stenting Of Left Superficial Artery, Mechanical Closure Of Right Femoral Artery, Moderate Concious Sedation [address] Roddy Ramos Refining Equipment Operator Surgeon(s) Marie Tao Estimated Blood Loss 17 ml Findings Infrarenal aorta - No aneurysmal or stenotic disease Left lower extremity: Common iliac - Minimal disease External iliac - Minimal disease Internal iliac - Minimal disease MEMS DEVICE SCIENTIST - Mild, 30-50% disease Profunda - 50% mid segment focal stenosis SFA/popliteal - Calcified moderate, diffuse, <50% disease proximally, sequential 60-70% lesions in mid, distal SFA and proximal popliteal artery TPT - 60% focal stenosis AT - 40-50% ostial stenosis, minimal disease disease to foot PT - occluded at the ostium with minimal distal PT filling Peroneal - minimal disease to foot DP - occluded before plantar arch. Severe diffuse distal small vessel disease. Right lower extremity: Common iliac - Minimal disease External iliac - Minimal disease Internal iliac - Minimal disease MEMS DEVICE SCIENTIST - Minimal disease, high bifurcation Profunda - Minimal disease SFA - Ostial 30-40% stenosis, diffusely calcified mild proximal/mid segment disease. Distal SFA with focal 80% stenosis Popliteal - Mild diffuse disease TPT - occluded at take-off of AT AT - severe proximal disease, diffuse distal disease PT - occluded without reconstitution Peroneal - reconstitutes distally Specimens none Drains None Anesthesia Moderate Complication(s) None Disposition Recovery Room / PACU Indications Critical limb ischemia Description of Procedure US guided right MEMS DEVICE SCIENTIST access. rim catheter, glidewire. Later, selective angiogram with a quickcross to visualize the foot In the setting of rest pain/critical limb ischemia decision made to treat moderate to severe SFA/popliteal disease to improve flow to distal severe disease. 6Fr 45cm destination sheath to Left MEMS DEVICE SCIENTIST Heparin to ACT >200 [place]-advantage, quickcross down to TPT 5.0 balloon followed by 6.0 balloon to distal SFA/popliteal Post RIVETING MACHINE OPERATOR TAPE CONTROL angiography showed good lesion expansion with non-flow limiting dissection in distal SFA. Decision made to stent lesion in the setting of dissection, heavy calcification , prior restenosis and goal of long-term patency with current rest pain. 6.0 x 150 Supera stent placed from popliteal above the knee back to distal SFA. 2nd Supera 5.5 x 40 overlapped proximally for residual disease/dissection. Post procedure angiography showed well-expanded stents, good distal 2 vessel run -off Summary: 1. Moderate to severe left distal SFA/popliteal artery stenosis 2. Left 2 vessel distal tibial run-off. Occluded PT 3. Severe diffuse left pedal vessel disease 4. Severe right SFA disease. 1 vessel distal runoff with proximal AT disease. 3. Successful RIVETING MACHINE OPERATOR TAPE CONTROL/Supera stent placement to left distal SFA/popliteal artery I attest to the content of the Intraoperative Record and any orders documented therein. Any exceptions are noted below.
--- NOTE | 2017-05-02 12:39 | EDITING REQUIRED CODING QUERY ---
SUPPORTING DIAGNOSIS NEEDED Dr. Ramos, A supporting diagnosis is required for the test/procedure performed on this patient in order for us to be reimbursed by the patient's insurance. Please provide a supporting diagnosis for the following test/procedure listed below next to the test name along with your signature. *If there is no additional diagnosis for this patient that would support the following test/procedure please document that below next to the test/procedure. 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
== END | disposition home or self-care (01) ==
LOC: C.ACU 06:20
PROVIDERS: ATTEND Internal Medicine Interventional Cardiology
DX: I70.245 Atherosclerosis of native arteries of left leg with ulceration of other part of foot (principal); I25.10 Atherosclerotic heart disease of native coronary artery without angina pectoris; E11.9 Type 2 diabetes mellitus without complications; I10 Essential (primary) hypertension; E78.5 Hyperlipidemia, unspecified; N40.0 Benign prostatic hyperplasia without lower urinary tract symptoms; D45 Polycythemia vera; M16.9 Osteoarthritis of hip, unspecified; Z85.51 Personal history of malignant neoplasm of bladder; Z86.718 Personal history of other venous thrombosis and embolism; Z98.62 Peripheral vascular angioplasty status; Z96.649 Presence of unspecified artificial hip joint; Z82.49 Family history of ischemic heart disease and other diseases of the circulatory system

== ENCOUNTER 2017-03-31 11:32 | Inpatient (IN) | payer OTHER ==
[2017-03-31] VITALS (15 sets, daily range): BP systolic 143–197; BP diastolic 64–86; PULSE 60–85; TEMP 36.4–37.1; O2SAT 87–96; Ht 175.3 cm; Wt 72.0 kg
[~2017-03-31] VITALS: Ht 175.3 cm; Wt 72.0 kg
[~2017-03-31 11:32] MED LIST changes: -ACETAMINOPHEN 325 MG TAB PO PRN; -ASPIRIN 325 MG ECTAB PO STA; -ATROPINE SULFATE 0.1 MG/ML 10 ML SYR ONE; -CIPR-255 PO; -CLOP1TAB5 PO; -CLOPIDOGREL BISULFATE 300 MG TAB PO STA; -CMD5 PO; -FENTANYL CITRATE INJ 50 MCG/1 ML 2 ML VIAL IV ONE; -FENTANYL CITRATE INJ 50 MCG/1 ML 2 ML VIAL ONE; -FLM4 PO; -GLC500 PO; -HEPARIN SOD (PORCINE) 1000 UNIT/ML 10 ML VIAL IV ONE; -HEPARIN SOD (PORCINE) 1000 UNIT/ML 10 ML VIAL ONE; -HEPARIN SOD (PORCINE) 5000 UNIT/ML 1 ML VIAL ONE; -IODIXANOL (VISIPAQUE) 270 MG/ML 150ML XX ONE; -LIDOCAINE HCL 1% 20 ML VIAL INJ ONE; -LVNIS120 SQ; -MIDAZOLAM HCL 1 MG/ML 2ML VIAL IV ONE; -MIDAZOLAM HCL 1 MG/ML 2ML VIAL ONE; -MIDAZOLAM HCL 5 MG/ML 1 ML VIAL ONE; -NITROGLYCERIN 5 MG/ML 10 ML VIAL ONE; -NITROGLYCERIN/D5W 100MCG/ML 20ML SYR ONE; -NiCARDipine HCL INJ 2.5 MG/ML 10 ML AMP ONE; -ONDANSETRON INJ 2 MG/ML 2 ML VIAL ONE; -OXYC7.5T65 PO; -ROSU5TAB PO; -SODIUM CHLORIDE 0.9% 1000ML 1,000 ML IV SCH; -ULT50X PO
[2017-03-31] MEDS ORDERED: CLOP1TAB5 PO (12:12)
[2017-03-31] MEDS ORDERED: ROSU5TAB PO (12:12)
[2017-03-31 13:45] LABS: BASO % 0.3 %; BASO ABS # 0.03 K/uL (0-0.2); COMPLETE YES; EOS % 0.7 %; HEMATOCRIT 37.3 % (42-52); IG% 0.3 %; LYMPH % 15.2 %; LYMPH ABS # 1.45 K/uL (1.2-3.4); MEAN CELL VOLUME 102.5 fL (80-100); MEAN CORPUSCULAR HEMOGLOBIN 36.5 pg (25-34); MEAN CORPUSCULAR HGB CONC 35.7 g/dl (32-36); MEAN PLATELET VOLUME 10.7 fL (7.4-10.4); MONO % 6.2 %; NEUT % 77.3 %; PLATELET COUNT 259 K/uL (130-400); RED BLOOD COUNT 3.64 M/uL (4.7-6.1); WHITE BLOOD COUNT 9.53 K/uL (4.8-10.8)
[2017-03-31 13:54] LABS: PROTHROMBIN TIME (PATIENT) 10.9 SECONDS (9.0-12.0)
[2017-03-31 14:06] LABS: ALB/GLOB RATIO 0.9 (0.9-2); ALKALINE PHOSPHATASE 81 U/L (45-117); ALT/SGPT 24 U/L (12-78); BLOOD UREA NITROGEN 29 mg/dl (7-18); BUN/CREATININE RATIO 22.6 (10-20); CALCIUM 8.8 mg/dl (8.5-10.1); CARBON DIOXIDE 27 mmol/L (21-32); CHLORIDE 108 mmol/L (98-107); GLUCOSE 121 mg/dl (70-99); SODIUM 141 mmol/L (136-145)
--- NOTE | 2017-03-31 14:34 | DIAGNOSTIC IMAGING REPORT ---
VENOUS DOPP LOWER EXT UNILAT CLINICAL HISTORY: 76 years-old Male presenting with EVALUATE FOR DVT. TECHNIQUE: Real-time grayscale and color and spectral Doppler ultrasound imaging of the veins of the left lower extremity was performed. Compression and augmentation were also utilized. COMPARISON: Comparison made to venous Doppler ultrasound of the right lower extremity from 2012. FINDINGS: Left: Common femoral vein: Patent. Femoral vein: Patent. Greater saphenous vein: Patent. Popliteal vein: Patent. Calf veins: Limited visualization. Other: None. IMPRESSION: No evidence of deep venous thrombosis. Electronically signed by: Kenan Bustos M.D. 03/31/2017 2:32 PM Dictated Date/Time: 03/31/2017 2:31 PM
--- NOTE | 2017-03-31 14:43 | DIAGNOSTIC IMAGING REPORT ---
LEFT LOWER EXTREMITY ARTERIAL DOPPLER ULTRASOUND CLINICAL HISTORY: Left leg. Left calf pain. Recent procedure. COMPARISON STUDY: No previous studies for comparison. TECHNIQUE: Ankle to brachial indices were not obtained in this patient. Grayscale and color and duplex Doppler sonography of the arterial system of the left lower extremity was performed. FINDINGS: There was biphasic flow within the left common femoral artery as well as the left profunda and proximal left superficial femoral artery. Extensive atherosclerotic plaque was identified within the left lower extremity. Note was made of stents within the left superficial femoral and popliteal arteries. Stents are occluded. Flow distal to the stent is markedly diminished with no flow identified within the left posterior tibial artery. Only minimal monophasic flow is noted within the left anterior tibial and peroneal vessels. There is minimal monophasic flow within the left dorsalis pedis. IMPRESSION: 1. 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 Flow distal to the stents is significantly diminished with dampened monophasic flow within the left anterior tibial, peroneal and dorsalis pedis vessels. No flow within the left posterior tibial artery. Findings discussed with Dr. Quintero at time of dictation. Vascular consultation is recommended. 2. Extensive atherosclerotic plaque within the left lower extremity. Electronically signed by: Andi Oliver M.D. 03/31/2017 2:42 PM Dictated Date/Time: 03/31/2017 2:33 PM
[2017-03-31] MEDS ORDERED: HEPARIN SOD (PORCINE) 1000 UNIT/ML 10 ML VIAL IV STA (14:57)
[2017-03-31] MEDS: HEPARIN 25,000 UNIT/500ML D5W 500 ML IV PRN (15:14)
[2017-03-31] MEDS ORDERED: ROSUVASTATIN CALCIUM 20 MG TAB PO ONE (15:33)
[2017-03-31] MEDS ORDERED: ONDANSETRON INJ 2 MG/ML 2 ML VIAL IV PRN (15:45)
[2017-03-31] MEDS ORDERED: IV FLUIDS COMPLETED PRN (16:15)
--- NOTE | 2017-03-31 18:05 | History and Physical ---
History & Physical Date of Service Mar 31, 2017. History & Physical obs #[id number]
--- NOTE | 2017-03-31 18:32 | Cardiology Consultation ---
Cardiology Consultation Date of Consultation: Mar 31, 2017. Attending Physician: Mary Reason for Consultation: Lower extremity pain History of Present Illness Mr. Mazariegos is a pleasant 76-year-old man with a history of type 2 diabetes, hypertension, hyperlipidemia, prior history of DVT, polycythemia vera on Hydrea , BPH with recent urologic surgery for obstructive bladder stones and peripheral artery disease status post prior left SFA atherectomy/angioplasty in 04/2015 and more recently SLD EDUCATIONAL AIDE with Supera stent placement to distal left SFA/ popliteal artery on 03/26/2017 who returns with worsening left lower extremity leg pain. Patient underwent recent endovascular intervention in the setting rest pain, severely reduced toe pressures and discoloration of the 5th digit on his left foot. He was found to have sequential severe stenosis in his distal SFA/ popliteal arteries, 2 vessel distal runoff with an occluded SLD EDUCATIONAL AIDE and severe distal pedal disease. This was initially treated with SLD EDUCATIONAL AIDE to his SFA with resulting non flow limiting dissection. in the setting of severe rest pain decision made to proceed with stenting and had 2 overlapping Supera stents (6.0 x 150, 5.5 x 40) placed from SFA and popliteal artery. Good angiographic result was obtained. He was discharged home on the same day on new Plavix and aspirin. Postprocedure he had improved lower extremity pain and states that the discoloration is 5th toe was also improving. He was able to sleep without pain for the 1st time and multiple weeks. Approximately 2 days ago patient noted his foot to be cool with worsening discomfort and discoloration. After contacting our office he then presented to the emergency department for further evaluation. In the ED he had a lower extremity arterial duplex which showed previously placed stents. He had pulsatile distal flow in his AT and peroneal on ultrasound. Past Medical/Surgical History 1. 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 Bladder calculus (N21.0) 3. Bladder cancer (C67.9) 4. Deep vein thrombosis of lower extremity (I82.409) 5. Diabetes mellitus (E11.9) 6. Dyslipidemia (E78.5) 7. Enlarged prostate with lower urinary tract symptoms (LUTS) (N40.1) 8. Essential hypertension (I10) 9. 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 Murmur (R01.1) 12. 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 Osteoarthritis of hip (M16.9) 14. PAD (peripheral artery disease) (I73.9) 15. Pain, lower leg (M79.669) 16. Pleural plaque with presence of asbestos (J92.0) 17. Sacroiliitis (M46.1) 18. Solitary pulmonary nodule (R91.1) 19. Tenosynovitis Of The Finger(S) 20. Thrombocytosis (D47.3) 21. Tingling (R20.2) 22. Toe joint pain, left (M25.572) Social History Smoking Status: Never Smoker History of Alcohol Use: No (quit 17 yrs ago) Review of Systems 10 point review of systems was completed and was otherwise negative unless stated in HPI All Other Systems: Reviewed and Negative Allergies Coded Allergies: Sulfa Antibiotics (Verified Allergy, Intermediate, HIVES, 03/26/17) Atorvastatin (Verified Adverse Reaction, Mild, LEG CRAMPS, 03/26/17) Cilostazol (Verified Adverse Reaction, Mild, DIARRHEA, 03/26/17) Medications Current Inpatient Medications Medications (Trade) Dose Ordered Sig/Dillon Route Start Time Stop Time Status Last Admin Dose Admin Heparin Sodium/ Dextrose 500 ml @ 26 mls/hr [id number] PRN IV 03/31/17 15:00 04/30/17 14:59 03/31/17 15:14 26 MLS/HR Ondansetron HCl (Zofran Inj) 4 mg Q6H PRN IV 03/31/17 15:45 04/30/17 15:44 Aspirin (Ecotrin Tab) 81 mg QPM PO 03/31/17 21:00 04/30/17 20:59 Clopidogrel Bisulfate (plAVix TAB) 75 mg DAILY PO 04/01/17 09:00 05/01/17 08:59 HCTZ/Lisinopril (Prinzide 20-25MG Tab) 1 tab QAM PO 04/01/17 09:00 05/01/17 08:59 Multivitamins (Multivitamin Tab) 1 tab QAM PO 04/01/17 09:00 05/01/17 08:59 Prednisone (PredniSONE TAB) 3 mg QPM PO 03/31/17 21:00 04/30/17 20:59 Hydroxyurea (Hydrea Cap) 500 mg BID PO 03/31/17 21:00 04/30/17 20:59 Rosuvastatin Calcium (Crestor Tab) 20 mg QAM PO 04/01/17 09:00 05/01/17 08:59 Miscellaneous (Iv Fluids Completed) 1 ea PRN PRN N/A 03/31/17 16:15 03/31/18 16:14 Physical Exam Vital Signs Past 12 Hours Date Time Temp Pulse Resp B/P (MAP) Pulse Ox O2 Delivery O2 Flow Rate FiO2 03/31/17 17:10 68 18 167/81 93 03/31/17 15:49 36.7 60 18 197/67 96 Room Air 03/31/17 15:21 62 18 151/64 92 Room Air 03/31/17 13:30 59 03/31/17 13:30 60 16 153/73 91 Room Air 03/31/17 13:29 91 Room Air 03/31/17 11:37 36.4 65 18 130/61 96 Room Air General: Comfortable, no acute distress Eyes: Sclerae anicteric, extraocular movements intact HENT: Oropharynx clear mucous membranes moist Neck: Normal carotid upstrokes, no bruits. No JVD. Lungs: Clear to auscultation bilaterally, no rhonchi or wheezes Cardiac: Regular rate and rhythm, 2/6 systolic ejection murmur heard best left lower sternal border, no rubs or gallops. Abdomen: Soft, nontender, nondistended, positive bowel sounds. Neuro: Nonfocal Psych: Alert orient x3, normal affect and mood Extremities/Vascular: -- 2+ radial bilaterally -- 2+ femoral bilaterally -- 2+ popliteal on the right, absent on the left -- 1 + DP and PT pulses on right, DP pulse questionably palpable on left. Decreased cap refill Bilaterally -- left foot cool but intact sensation, normal motor function -- black discoloration of the 5th distal digit on on left foot. No signs of active infection -- No edema Data Laboratory Results: Last 24 Hours Test 03/31/17 13:25 White Blood Count 9.53 K/uL Red Blood Count 3.64 M/uL Hemoglobin 13.3 g/dL Hematocrit 37.3 % Mean Corpuscular Volume 102.5 fL Mean Corpuscular Hemoglobin 36.5 pg Mean Corpuscular Hemoglobin Concent 35.7 g/dl Platelet Count 259 K/uL Mean Platelet Volume 10.7 fL Neutrophils (%) (Auto) 77.3 % Lymphocytes (%) (Auto) 15.2 % Monocytes (%) (Auto) 6.2 % Eosinophils (%) (Auto) 0.7 % Basophils (%) (Auto) 0.3 % Neutrophils # (Auto) 7.36 K/uL Lymphocytes # (Auto) 1.45 K/uL Monocytes # (Auto) 0.59 K/uL Eosinophils # (Auto) 0.07 K/uL Basophils # (Auto) 0.03 K/uL RDW Standard Deviation 53.5 fL RDW Coefficient of Variation 14.4 % Immature Granulocyte % (Auto) 0.3 % Immature Granulocyte # (Auto) 0.03 K/uL Prothrombin Time 10.9 SECONDS Prothromb Time International Ratio 1.0 Activated Partial Thromboplast Time 27.1 SECONDS Partial Thromboplastin Ratio 1.0 Sodium Level 141 mmol/L Potassium Level mmol/L Chloride Level 108 mmol/L Carbon Dioxide Level 27 mmol/L Anion Gap 6.0 mmol/L Blood Urea Nitrogen 29 mg/dl Creatinine 1.30 mg/dl Est Creatinine Clear Calc Drug Dose 47.6 ml/min Estimated GFR () 61.0 Estimated GFR (Non- 52.6 BUN/Creatinine Ratio 22.6 Random Glucose 121 mg/dl Calcium Level 8.8 mg/dl Total Bilirubin 0.5 mg/dl Aspartate Amino Transf (AST/SGOT) U/L Alanine Aminotransferase (ALT/SGPT) 24 U/L Alkaline Phosphatase 81 U/L Total Protein 7.0 gm/dl Albumin 3.4 gm/dl Globulin 3.6 gm/dl Albumin/Globulin Ratio 0.9 Left lower extremity arterial duplex--occlusion of left SFA/popliteal stents, monophasic flow in left anterior tibial, peroneal Left lower extremity venous duplex--no DVT Assessment & Plan 1. Acute arterial stent thrombosis 2. PAD with prior critical limb ischemia 3. Type 2 diabetes 4. Mild renal insufficiency 5. Hypertension 6. Hyperlipidemia Patient with acute worsening of lower extremity pain 2 days ago. Repeat lower extremity arterial duplex shows now occluded SFA/popliteal stents. Left lower extremity at present appears viable with minimal pain, no motor sensory deficits and intact distal arterial flow by ultrasound. No need for immediate intervention. We will plan for repeat endovascular intervention tomorrow. In the interim continue on heparin infusion, continue dual antiplatelet therapy with aspirin and Plavix. Keep NPO past midnight, IV fluids overnight for mild renal insufficiency Please contact if significant change in symptoms, exam overnight
--- NOTE | 2017-03-31 19:01 | HISTORY & PHYSICAL EXAMINATION ---
DATE OF ADMISSION: 03/31/2017 CHIEF COMPLAINT: Foot coldness. HISTORY OF PRESENT ILLNESS: The patient is a very pleasant 76-year-old male who last week on Friday had peripheral angiography with 2 stents. He notes that prior to this, it seems that his toe was either black or purple. Cardiology notes that it looked unsalvageable even before the procedure but that the rest of his foot was cold as well and so he had the angiography of the little toe. The fifth toe improved a little bit over the first several days, then stopped improving and then Friday, he notes that his left leg continued to start to feel colder and more tired with exertion and certainly things seem to be worsening. So while he does not necessarily have any rest pain, the fact that it was colder and he was having pain with exertion, he called Dr. Ramos today who was told to get an ultrasound for any clot. He came here to the ER for further evaluation where he was found to have evidence of arterial occlusion. REVIEW OF SYSTEMS: He has no rest pain, no nausea, vomiting, no shortness of breath, no dizziness, no fevers, chills, or sweats. Review of systems is otherwise negative except for as above. PAST MEDICAL HISTORY: Includes hypertension, diabetes, rheumatoid arthritis, hyperlipidemia, peripheral arterial disease. MEDICATIONS: Include aspirin, Plavix, hydrochlorothiazide, lisinopril, prednisone, rosuvastatin, hydroxyurea. ALLERGIES: SULFA GIVES HIM HIVES. VACCINATIONS: Are up to date. FAMILY HISTORY: His mom had stroke and diabetes, he had 2 brothers and a sister with diabetes. PHYSICAL EXAMINATION: VITAL SIGNS: Temperature 36.7, pulse 60, respiratory rate 18, blood pressure variable anywhere from 153/73-197/67, 96% on room air. GENERAL: He is awake, alert, oriented x3, pleasant, somewhat fatigued appearing but otherwise in no acute distress. HEENT: Normocephalic, atraumatic. Mucous membranes are moist. CARDIOVASCULAR: Regular without rubs, murmurs, or gallops. LUNGS: Clear to auscultation bilaterally. No rales, rhonchi, or wheezes with good effort. ABDOMEN: Soft, nondistended, nontender, no masses or organomegaly. EXTREMITIES: Without clubbing or edema. Left lower extremity has a mild degree of cyanosis, mostly pallor and cold temperature from about the knee down, questionably faintly palpable dorsalis pedis and posterior tibialis pulse and present but slow cap refill. His fifth digit about half way down is black with a well demarcated line between more viable appearing tissue in the black, this too is nontender. His right lower extremity is generally within normal limits and certainly much warmer and much pinker compared to the left. MUSCULOSKELETAL: Yields no gross lesions. NEUROLOGIC: Shows cranial nerves II-XII to be grossly intact. Gross motor and sensory are intact. MENTAL STATUS: Shows good recent and remote recall. Normal mood and affect. Good judgment and insight. LABS AND DIAGNOSTICS: CBC shows a white count of 9.53, hemoglobin 13.3, MCV 103.5, platelets 259. Complete metabolic panel with sodium 141, potassium was hemolyzed and therefore not reported, chloride 108, CO2 27, BUN 29, creatinine 1.3, calcium 8.8, glucose 121, total bili 0.5. ALT of 24, alk phos 81, total protein 7, albumin 3.4, PT of 10.9, PTT 27.1. Lower extremity arterial Doppler shows biphasic flow in the left common femoral and left profunda and proximal superficial. Extensive atherosclerotic plaque identified in the left lower extremity, stents in the left superficial femoral and popliteal arteries that appear to be occluded, flow distal to the stent markedly diminished with no flow within the left posterior tibial, only minimal monophasic flow is noted within the left anterior tibial and peroneal vessels, minimal monophasic flow within the left dorsalis pedis. Lower extremity venous Doppler showed no evidence of DVT. ASSESSMENT AND PLAN: 1. Peripheral arterial disease with acute ischemia. Fortunately, he does appear to have a reasonable amount of residual low. His fifth digit does appear to be ischemic and largely necrotic; however, in discussion with the patient and then with cardiology, it appears this was in that state even prior to last week's procedure. We will start him on heparin drip. He is on dual antiplatelets. We will increase his statin to plaque stabilization range of dosing and admit him to telemetry for further treatment. We discussed the case with Dr. Ramos in cardiology. He is seeing the patient and likely will take him for repeat angiography and management tomorrow, sooner if the need arises but he will be seeing him shortly. 2. Peripheral artery disease. Medication management as above. 3. Type 2 diabetes, his last A1c about 3 months ago was 6.6. Continue his home meds, fingersticks and sliding scale. 4. Macrocytic anemia, check B12. 5. Hyperlipidemia. Increase his statin more for plaque stabilization benefit than his lipids, which were adequately suppressed several months ago. 6. Rheumatoid arthritis. Continue his hydroxyurea and prednisone. 7. Deep venous thrombosis prophylaxis. He will be on the heparin drip. 8. Hypertension. Follow his readings. They are quite variable. I suspect he is somewhat uncontrolled, but also the stress of the situation may be making things worse. Continue his lisinopril and hydrochlorothiazide for now and may need to initiate more medications as need arises.
[2017-03-31] MEDS ORDERED: DEXTROSE 50% 50 ML SYR IV PRN (20:30)
[2017-03-31] MEDS ORDERED: GLUCOSE 40% GEL 15 GM TUBE PO PRN (20:30)
[2017-03-31] MEDS ORDERED: GLUCOSE 10 TABS/TUBE PO PRN (20:30)
[2017-03-31] MEDS ORDERED: GLUCAGON FOR INJ 1 MG VIAL SQ PRN (20:30)
[2017-03-31] MEDS: ASPIRIN 81 MG ECTAB PO SCH (20:34)
[2017-03-31] MEDS: HYDROXYUREA 500 MG CAP PO SCH (20:34)
--- NOTE | 2017-03-31 20:39 | EMERGENCY ROOM VISIT NOTE ---
History Report prepared by Devin: Andrea Danielson Under the Supervision of: Dr. Emeterio Quintero M.D. First contact with patient: 12:57 Chief Complaint: LEG PAIN,LEG INJURY Stated Complaint: L CALF PAIN, COLD TOES History of Present Illness The patient is a 76 year old male who presents to the Emergency Room with complaints of worsening left leg "coldness" beginning two days ago. The patient had two arterial stents placed in his left thigh area five days ago dye to blockages. He was referred to the ED by his brim molder for his symptoms. He states "my calf feels tired too". The patient states that his current symptoms do not feel like his symptoms prior to the stent placements. He notes that his brim molder informed him that he may possibly lose his left fifth toe. Pt denies LOC, headache, fevers, chills, diaphoresis, visual changes, neck pain, chest pain, breathing difficulties, nausea, vomiting, abdominal pain, back pain , melena, hematochezia, urinary symptoms, numbness, weakness, lymphadenopathy, rash, or other complaints. He is currently taking Plavix and aspirin. Source of History: patient Onset: Five days ago Position: leg (left) Quality: other ("coldness") Timing: worsening Note: Additional symptoms: feeling "tired" in the left calf. Review of Systems See HPI for pertinent positives and negatives. A total of ten systems were reviewed and were otherwise negative. Past Medical & Surgical Medical Problems: (1) Benign hypertension (2) Diabetes (3) Hyperlipidemia (4) Right Hip Surgery Family History No pertinent family history stated. Social History Smoking Status: Never Smoker Drug Use: none Marital Status: Housing Status: lives with family Occupation Status: retired Current/Historical Medications Scheduled Aspirin (Aspirin Ec), 81 MG PO QPM Clopidogrel Bisulfate (Plavix), 1 TAB PO DAILY Hctz/Lisinopril (Lisinopril/Hctz 20/25 Mg), 1 TAB PO QAM Multivitamin (Multivitamin), 1 TAB PO QAM Prednisone (Prednisone), 3 MG PO QPM Rosuvastatin Calcium (Crestor), 1 TAB PO DAILY [Hydroxyurea], 500 MG PO BID Scheduled PRN Ibuprofen Tab (Advil), 200 MG PO Q6 PRN for Pain Miscellaneous Medications Cod Liver Oil (Cod Liver Oil) Allergies Coded Allergies: Sulfa Antibiotics (Verified Allergy, Intermediate, HIVES, 03/26/17) Atorvastatin (Verified Adverse Reaction, Mild, LEG CRAMPS, 03/26/17) Cilostazol (Verified Adverse Reaction, Mild, DIARRHEA, 03/26/17) Physical Exam Vital Signs Date Time Temp Pulse Resp B/P (MAP) Pulse Ox O2 Delivery O2 Flow Rate FiO2 03/31/17 15:21 62 18 151/64 92 Room Air 03/31/17 13:30 59 03/31/17 13:30 60 16 153/73 91 Room Air 03/31/17 13:29 91 Room Air 03/31/17 11:37 36.4 65 18 130/61 96 Room Air Physical Exam GENERAL: Awake, alert, well-appearing, in no distress HENT: Normocephalic, atraumatic. Oropharynx unremarkable. EYES: Normal conjunctiva. Sclera non-icteric. NECK: Supple. No nuchal rigidity. FROM. No JVD. RESPIRATORY: Clear to auscultation. CARDIAC: Regular rate, normal rhythm. Extremities warm and well perfused. Pulses equal. ABDOMEN: Soft, non-distended. No tenderness to palpation. No rebound or guarding. No masses. RECTAL: Deferred. MUSCULOSKELETAL: Chest examination reveals no tenderness. The back is symmetrical on inspection without obvious abnormality. There is no CVA tenderness to palpation. No joint edema. LOWER EXTREMITIES: Left foot is cool to the touch. Decreased capillary refill. Black fifth toe. No edema. NEURO: Normal sensorium. No sensory or motor deficits noted. SKIN: No rash or jaundice noted. Medical Decision & Procedures ER Provider Diagnostic Interpretation: US: Radiology results as stated below per my review and radiologist interpretation LEFT LOWER EXTREMITY ARTERIAL DOPPLER ULTRASOUND FINDINGS: There was biphasic flow within the left common femoral artery as well as the left profunda and proximal left superficial femoral artery. Extensive atherosclerotic plaque was identified within the left lower extremity. Note was made of stents within the left superficial femoral and popliteal arteries. Stents are occluded. Flow distal to the stent is markedly diminished with no flow identified within the left posterior tibial artery. Only minimal monophasic flow is noted within the left anterior tibial and peroneal vessels. There is minimal monophasic flow within the left dorsalis pedis. IMPRESSION: 1. 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 Flow distal to the stents is significantly diminished with dampened monophasic flow within the left anterior tibial, peroneal and dorsalis pedis vessels. No flow within the left posterior tibial artery. Findings discussed with Dr. Quintero at time of dictation. Vascular consultation is recommended. 2. Extensive atherosclerotic plaque within the left lower extremity. Electronically signed by: Andi Oliver M.D. VENOUS DOPP LOWER EXT UNILAT FINDINGS: Left: Common femoral vein: Patent. Femoral vein: Patent. Greater saphenous vein: Patent. Popliteal vein: Patent. Calf veins: Limited visualization. Other: None. IMPRESSION: No evidence of deep venous thrombosis. Electronically signed by: Kenan Bustos M.D. Laboratory Results 03/31/17 13:25 Red Blood Count 3.64, Mean Corpuscular Volume 102.5, Mean Corpuscular Hemoglobin 36.5, Mean Corpuscular Hemoglobin Concent 35.7, Mean Platelet Volume 10.7, Neutrophils (%) (Auto) 77.3, Lymphocytes (%) (Auto) 15.2, Monocytes (%) ( Auto) 6.2, Eosinophils (%) (Auto) 0.7, Basophils (%) (Auto) 0.3, Neutrophils # ( Auto) 7.36, Lymphocytes # (Auto) 1.45, Monocytes # (Auto) 0.59, Eosinophils # ( Auto) 0.07, Basophils # (Auto) 0.03 03/31/17 13:25 Test 03/31/17 13:25 White Blood Count 9.53 K/uL (4.8-10.8) Red Blood Count 3.64 M/uL (4.7-6.1) Hemoglobin 13.3 g/dL (14.0-18.0) Hematocrit 37.3 % (42-52) Mean Corpuscular Volume 102.5 fL (80-100) Mean Corpuscular Hemoglobin 36.5 pg (25-34) Mean Corpuscular Hemoglobin Concent 35.7 g/dl (32-36) Platelet Count 259 K/uL (130-400) Mean Platelet Volume 10.7 fL (7.4-10.4) Neutrophils (%) (Auto) 77.3 % Lymphocytes (%) (Auto) 15.2 % Monocytes (%) (Auto) 6.2 % Eosinophils (%) (Auto) 0.7 % Basophils (%) (Auto) 0.3 % Neutrophils # (Auto) 7.36 K/uL (1.4-6.5) Lymphocytes # (Auto) 1.45 K/uL (1.2-3.4) Monocytes # (Auto) 0.59 K/uL (0.11-0.59) Eosinophils # (Auto) 0.07 K/uL (0-0.5) Basophils # (Auto) 0.03 K/uL (0-0.2) RDW Standard Deviation 53.5 fL (36.4-46.3) RDW Coefficient of Variation 14.4 % (11.5-14.5) Immature Granulocyte % (Auto) 0.3 % Immature Granulocyte # (Auto) 0.03 K/uL (0.00-0.02) Prothrombin Time 10.9 SECONDS (9.0-12.0) Prothromb Time International Ratio 1.0 (0.9-1.1) Activated Partial Thromboplast Time 27.1 SECONDS (21.0-31.0) Partial Thromboplastin Ratio 1.0 Anion Gap 6.0 mmol/L (3-11) Est Creatinine Clear Calc Drug Dose 47.6 ml/min Estimated GFR () 61.0 Estimated GFR (Non- 52.6 BUN/Creatinine Ratio 22.6 (10-20) Calcium Level 8.8 mg/dl (8.5-10.1) Total Bilirubin 0.5 mg/dl (0.2-1) Aspartate Amino Transf (AST/SGOT) U/L (15-37) Alanine Aminotransferase (ALT/SGPT) 24 U/L (12-78) Alkaline Phosphatase 81 U/L (45-117) Total Protein 7.0 gm/dl (6.4-8.2) Albumin 3.4 gm/dl (3.4-5.0) Globulin 3.6 gm/dl (2.5-4.0) Albumin/Globulin Ratio 0.9 (0.9-2) Laboratory results reviewed by me Medications Administered Medications (Trade) Dose Ordered Sig/Dillon Route Start Time Stop Time Status Last Admin Dose Admin Heparin Sodium/ Dextrose 500 ml @ 26 mls/hr [id number] PRN IV 03/31/17 15:00 04/30/17 14:59 03/31/17 15:14 26 MLS/HR Heparin Sodium (Porcine) (Heparin Iv Bolus) 6,000 unit NOW STAT IV 03/31/17 14:57 03/31/17 14:58 DC 03/31/17 15:13 6,000 UNIT Rosuvastatin Calcium (Crestor Tab) 20 mg 1533 ONCE PO 03/31/17 15:33 03/31/17 16:31 DC 03/31/17 16:55 20 MG ED Course 1330: The patient was evaluated in room C11B. A complete history and physical exam was performed. 1457: Ordered Heparin IV Bolus 6000 unit IV. 1450: Upon reexamination, the patient was resting comfortably. I discussed the test results and treatment plan with him. The patient will be evaluated for further management. Medical Decision Triage Nursing notes reviewed. The patient's presentation and history were concerning for leg symptoms with recent stenting. Etiologies such as arterial occlusion, DVT, joint effusion, infection, trauma, muscular, as well as others were entertained. Patient was evaluated. His symptoms and recent procedure with his physical findings are concerning for vascular pathology. He had blood obtained which was unremarkable. The patient went for ultrasound imaging of the vein as well as arteries of the left lower extremity. This was concerning for arterial occlusion. I did discuss this with radiology. I consulted with the patient's brim molder, Dr. Ramos. He recommended IV heparin and this was ordered. The patient will need to be admitted to the hospital. He asked that I discussed the case with the medicine team. I did consult with Dr. Maximiliano Townsend from Hospital service. The patient was evaluated in the Emergency Room and admitted for further treatment. Medication Reconcilliation Current Medication List: was personally reviewed by me Blood Pressure Screening Patient's blood pressure: Elevated blood pressure Blood pressure disposition: Elevated BP felt to be situational Consults Consulting Physician: Dr. Oliver -Radiology Returned Call: [phone] Discussed the patient's imaging studies. Dr. Oliver believes that the patient 's arterial stent appears to be occluded. Additional Consults: Time Called: 1446 Consulted Physician: Dr. Ramos -Cardiology Returned Call: [phone] Additional Comments: Discussed the patient's case. Dr. Ramos will come see the patient. He recommends IV heparin and admission to the hospital. Time Called: 1453 Consulted Physician: Dr. [place] [place] Call: [phone] Additional Comments: Discussed the patient's case. The patient will be evaluated for further treatment and disposition. Impression Primary Impression: Arterial occlusion, lower extremity Critical Care I have personally spent greater than 30 minutes of critical care time in the direct management of this patient. This includes bedside care, interpretation of diagnostic studies, and testing, discussion with consultants, patient, and family members, and other required patient management activities. This 30 minutes is in excess of all separately billable procedures. Scribe Attestation The scribe's documentation has been prepared under my direction and personally reviewed by me in its entirety. I confirm that the note above accurately reflects all work, treatment, procedures, and medical decision making performed by me. Departure Information Dispostion Being Evaluated By Hospitalist Referrals Emeterio Hardin M.D. (PCP) Patient Instructions My [facility]
[2017-03-31 21:34] LABS: PARTIAL THROMBOPLASTIN RATIO 2.3
[2017-03-31] MEDS: INSULIN ASPART 100 UNITS/ML 3 ML PEN SC SCH (22:06)
[2017-04-01] VITALS (18 sets, daily range): BP systolic 115–179; BP diastolic 55–113; PULSE 53–70; TEMP 36.4–37.2; O2SAT 90–97
--- NOTE | 2017-04-01 06:55 | Clinical Documentation Query ---
YURI Goodrich : CLINICAL DOCUMENTATION QUERY Patient is a 76 year old male admitted for evaluation and treatment of acute left lower extremity limb ischemia in the setting of recent peripheral angiography and stenting secondary to severe PAD. Documentation includes "His fifth digit about half way down is black with a well demarcated line between more viable appearing tissue in the black...". As appropriate, consider documentation as suggested below in order to capture the appropriate severity of illness and associated risk of mortality. In your clinical opinion is this patient being managed for: ( x ) Gangrene of left fifth toe PLEASE ALSO SEND THIS QUERY TO THE PHYSICIAN CARING FOR HIM FOR THE REST OF HIS STAY, I WAS JUST ADMITTING AND THEREFORE AM UNABLE TO DOCUMENT IN THE REQUIRED REPETITIVE FASHION OF DAILY PROGRESS NOTES AND DISCHARGE SUMMARY, THANK YOU ( ) Other explanation of clinical findings (Please Explain) ( ) Unable to determine (Please Define) ( ) Need to Discuss ( ) Not Agree The medical record reflects the following clinical findings, treatment, and risk factors. Clinical Indicators: As above Treatment:ICU admission, Speed Belt Sander, cardiology/interventionalist consultations, Heparin IV Risk Factors: Severe PAD, postoperative period, recent placement of peripheral stents. Please clarify and document your clinical opinion in the progress notes and discharge summary. Terms such as "probable", "suspected", "likely", "questionable", "possible", or "still to be ruled out" are acceptable. IF IN AGREEMENT, YOU MUST DOCUMENT ABOVE DIAGNOSTIC STATEMENT IN DAILY PROGRESS NOTES AND DISCHARGE SUMMARY. This document is not part of the patient's record. Thank You, Andrey Merino, JOMAR [phone]
--- NOTE | 2017-04-01 07:10 | Cardiology Follow-Up ---
Subjective Subjective Date of Service: Apr 01, 2017. Pt evaluation today including: conversation w/ patient, physical exam, chart review, lab review, review of studies, review of inpatient medication list Additional Details: Diminished DP pulse, recurrent pain overnight. Moved to ICU for close monitoring. No pain this AM. Dopplerable pulse present. Problem List Medical Problems: (1) Arterial occlusion, lower extremity Status: Acute (2) Tick bite of hip Status: Acute Review of Systems Constitutional: No fever, No chills Respiratory: No cough Cardiac: No chest pain Abdomen: No pain, No nausea Musculoskeletal: + swelling Heme: No abnormal bleeding/bruising Endo: No fatigue Objective Vital Signs Last Vital Signs Documentation Date Time Temp Pulse Resp B/P (MAP) Pulse Ox O2 Delivery O2 Flow Rate FiO2 04/01/17 06:00 53 17 141/66 (91) 91 Nasal Cannula 3.0 04/01/17 04:00 37.1 Physical Exam: General Appearance: no apparent distress ENT: normal ENT inspection, hearing grossly normal Respiratory/Chest: lungs clear, normal breath sounds, no respiratory distress Cardiovascular: regular rate, rhythm, no edema Abdomen: normal bowel sounds, non tender, soft Extremities: + pertinent finding (Left foot cool, dopplerble pulse, diminished cap refill. Intact sensation/motor function. Necrotic 5th digit) Neurologic/Psychiatric: alert, normal mood/affect, oriented x 3 Skin: no rash Lymphatic: no adenopathy Assessment and Plan 1. Acute limb ischemia - viable 2. Severe PAD with prior CLI s/p recent SFA/Pop stenting. 3. DM2 4. Borderline renal function 5. PCV 6. ?RA 7. HTN 8. HLD Will plan to proceed with LLE angiogram and intervention this AM. Continue heparin infusion. Continue DAPT Medications: Current Inpatient Medications Medications (Trade) Dose Ordered Sig/Dillon Route Start Time Stop Time Status Last Admin Dose Admin Heparin Sodium/ Dextrose 500 ml @ 26 mls/hr [id number] PRN IV 03/31/17 15:00 04/30/17 14:59 03/31/17 15:14 26 MLS/HR Ondansetron HCl (Zofran Inj) 4 mg Q6H PRN IV 03/31/17 15:45 04/30/17 15:44 Aspirin (Ecotrin Tab) 81 mg QPM PO 03/31/17 21:00 04/30/17 20:59 03/31/17 20:34 81 MG Clopidogrel Bisulfate (plAVix TAB) 75 mg DAILY PO 04/01/17 09:00 05/01/17 08:59 HCTZ/Lisinopril (Prinzide 20-25MG Tab) 1 tab QAM PO 04/01/17 09:00 05/01/17 08:59 Multivitamins (Multivitamin Tab) 1 tab QAM PO 04/01/17 09:00 05/01/17 08:59 Prednisone (PredniSONE TAB) 3 mg QPM PO 03/31/17 21:00 04/30/17 20:59 03/31/17 20:32 3 MG Hydroxyurea (Hydrea Cap) 500 mg BID PO 03/31/17 21:00 04/30/17 20:59 03/31/17 20:34 500 MG Rosuvastatin Calcium (Crestor Tab) 20 mg QAM PO 04/01/17 09:00 05/01/17 08:59 Miscellaneous (Iv Fluids Completed) 1 ea PRN PRN N/A 03/31/17 16:15 03/31/18 16:14 Insulin Aspart (novoLOG ASPART) SLIDING SCALE G... ACHS SC 03/31/17 21:00 04/30/17 20:59 03/31/17 22:06 1 UNITS Glucose (Glucose 40% Gel) 15-30 GRAMS 15 GRAMS... UD PRN PO 03/31/17 20:30 04/30/17 20:29 Glucose (Glucose Chew Tab) 4-8 Tablets 4 Tabl... UD PRN PO 03/31/17 20:30 04/30/17 20:29 Dextrose (Dextrose 50% 50ML Syringe) 25-50ML OF 50% DW IV FOR... UD PRN IV 03/31/17 20:30 04/30/17 20:29 Glucagon (Glucagon Inj) 1 mg UD PRN SQ 03/31/17 20:30 04/30/17 20:29 Lab Results: 03/31/17 13:25 Red Blood Count 3.64, Mean Corpuscular Volume 102.5, Mean Corpuscular Hemoglobin 36.5, Mean Corpuscular Hemoglobin Concent 35.7, Mean Platelet Volume 10.7, Neutrophils (%) (Auto) 77.3, Lymphocytes (%) (Auto) 15.2, Monocytes (%) ( Auto) 6.2, Eosinophils (%) (Auto) 0.7, Basophils (%) (Auto) 0.3, Neutrophils # ( Auto) 7.36, Lymphocytes # (Auto) 1.45, Monocytes # (Auto) 0.59, Eosinophils # ( Auto) 0.07, Basophils # (Auto) 0.03 03/31/17 13:25 Test 03/31/17 13:25 03/31/17 20:58 03/31/17 23:10 04/01/17 03:56 White Blood Count 9.53 K/uL (4.8-10.8) Red Blood Count 3.64 M/uL (4.7-6.1) Hemoglobin 13.3 g/dL (14.0-18.0) Hematocrit 37.3 % (42-52) Mean Corpuscular Volume 102.5 fL (80-100) Mean Corpuscular Hemoglobin 36.5 pg (25-34) Mean Corpuscular Hemoglobin Concent 35.7 g/dl (32-36) Platelet Count 259 K/uL (130-400) Mean Platelet Volume 10.7 fL (7.4-10.4) Neutrophils (%) (Auto) 77.3 % Lymphocytes (%) (Auto) 15.2 % Monocytes (%) (Auto) 6.2 % Eosinophils (%) (Auto) 0.7 % Basophils (%) (Auto) 0.3 % Neutrophils # (Auto) 7.36 K/uL (1.4-6.5) Lymphocytes # (Auto) 1.45 K/uL (1.2-3.4) Monocytes # (Auto) 0.59 K/uL (0.11-0.59) Eosinophils # (Auto) 0.07 K/uL (0-0.5) Basophils # (Auto) 0.03 K/uL (0-0.2) RDW Standard Deviation 53.5 fL (36.4-46.3) RDW Coefficient of Variation 14.4 % (11.5-14.5) Immature Granulocyte % (Auto) 0.3 % Immature Granulocyte # (Auto) 0.03 K/uL (0.00-0.02) Prothrombin Time 10.9 SECONDS (9.0-12.0) Prothromb Time International Ratio 1.0 (0.9-1.1) Anion Gap 6.0 mmol/L (3-11) Est Creatinine Clear Calc Drug Dose 47.6 ml/min Estimated GFR () 61.0 Estimated GFR (Non- 52.6 BUN/Creatinine Ratio 22.6 (10-20) Calcium Level 8.8 mg/dl (8.5-10.1) Total Bilirubin 0.5 mg/dl (0.2-1) Aspartate Amino Transf (AST/SGOT) U/L (15-37) Alanine Aminotransferase (ALT/SGPT) 24 U/L (12-78) Alkaline Phosphatase 81 U/L (45-117) Total Protein 7.0 gm/dl (6.4-8.2) Albumin 3.4 gm/dl (3.4-5.0) Globulin 3.6 gm/dl (2.5-4.0) Albumin/Globulin Ratio 0.9 (0.9-2) Vitamin B12 Level 736 pg/mL (211-911) Lactic Acid Level 0.7 mmol/L (0.4-2.0) Activated Partial Thromboplast Time 51.0 SECONDS (21.0-31.0) Partial Thromboplastin Ratio 2.0 Test 04/01/17 06:12 Bedside Glucose 145 mg/dl (70-99)
--- NOTE | 2017-04-01 07:11 | Procedure Note ---
Pre-Mod Sedation Assessment General Date of Moderate Sedation: Apr 01, 2017. Vital Signs: Vital Signs Past 12 Hours Date Time Temp Pulse Resp B/P (MAP) Pulse Ox O2 Delivery O2 Flow Rate FiO2 04/01/17 06:00 53 17 141/66 (91) 91 Nasal Cannula 3.0 04/01/17 05:00 56 16 137/66 (89) 91 Nasal Cannula 3.0 04/01/17 04:00 37.1 54 15 139/66 (90) 92 Nasal Cannula 3.0 04/01/17 03:00 56 16 131/61 (84) 93 Nasal Cannula 3.0 04/01/17 02:00 58 15 133/65 (87) 90 Nasal Cannula 2.0 04/01/17 01:01 62 15 134/65 (88) 90 Nasal Cannula 2.0 04/01/17 00:01 36.7 67 16 165/75 (105) 92 Nasal Cannula 2.0 04/01/17 00:00 Nasal Cannula 2.0 03/31/17 23:05 67 18 93 03/31/17 23:00 64 20 143/70 (94) 89 03/31/17 23:00 64 20 143/70 (94) 89 03/31/17 22:50 64 21 89 03/31/17 22:45 64 21 90 03/31/17 22:35 85 27 90 03/31/17 22:30 36.6 69 22 167/84 (111) 91 Nasal Cannula 2.0 03/31/17 22:20 66 19 89 03/31/17 22:15 63 15 90 03/31/17 22:05 65 27 91 03/31/17 22:00 67 21 149/69 (95) 89 03/31/17 21:50 65 17 90 03/31/17 21:35 36.8 66 21 178/86 (116) 90 Nasal Cannula 2.0 03/31/17 21:20 67 16 87 Room Air 03/31/17 20:00 Room Air 03/31/17 19:22 37.1 65 20 145/66 (92) 95 Room Air Review Cardiovascular: regular rate, rhythm, no edema Abdomen: normal bowel sounds, non tender Lungs: chest non-tender, lungs clear Airway Class: II Pre-Sedation Airway Assessment Oral Cavity: WNL Able to Visualize Vocal Cords: No Short Thick Neck: No Hx of Sleep Apnea: No Smoking Status: Never Smoker Mallampati Classification: Class III ASA Classification: Class III Procedure Planning Contraindications-for Mod Sed: None Yes Notes The planned sedation has been discussed with the patient and consent obtained. I have identified the patient, determined the appropriateness of sedation and have assessed the patient immediately prior to the procedure. All medicine(s) and interventions are by my order.
[2017-04-01] MEDS: INSULIN ASPART 100 UNITS/ML 3 ML PEN SC SCH ×4 (07:15→21:00)
[2017-04-01] MEDS: CLOPIDOGREL BISULFATE 75 MG TAB PO SCH (07:20)
[2017-04-01] MEDS: MULTIVITAMIN TAB PO SCH (07:21)
[2017-04-01] MEDS: HYDROXYUREA 500 MG CAP PO SCH ×2 (07:21→21:02)
[2017-04-01] MEDS: ROSUVASTATIN CALCIUM 20 MG TAB PO SCH ×2 (07:21→12:34)
[2017-04-01] MEDS: LISINOPRIL/HCTZ 20/25MG TAB PO SCH ×2 (07:22→12:34)
--- NOTE | 2017-04-01 07:47 | Clinical Documentation Query ---
MARY Rowe : CLINICAL DOCUMENTATION QUERY Patient is a 76 year old male admitted for evaluation and treatment of acute left lower extremity limb ischemia in the setting of recent peripheral angiography and stenting secondary to severe PAD. Documentation includes "His fifth digit about half way down is black with a well demarcated line between more viable appearing tissue in the black...". As appropriate, consider documentation as suggested below in order to capture the appropriate severity of illness and associated risk of mortality. In your clinical opinion is this patient being managed for: (x ) Gangrene of left fifth toe ( ) Other explanation of clinical findings (Please Explain) ( ) Unable to determine (Please Define) ( ) Need to Discuss ( ) Not Agree The medical record reflects the following clinical findings, treatment, and risk factors. Clinical Indicators: As above Treatment:ICU admission, Online Editor, cardiology/interventionalist consultations, Heparin IV Risk Factors: Severe PAD, postoperative period, recent placement of peripheral stents. Please clarify and document your clinical opinion in the progress notes and discharge summary. Terms such as "probable", "suspected", "likely", "questionable", "possible", or "still to be ruled out" are acceptable. IF IN AGREEMENT, YOU MUST DOCUMENT ABOVE DIAGNOSTIC STATEMENT IN DAILY PROGRESS NOTES AND DISCHARGE SUMMARY. This document is not part of the patient's record. Thank You, Andrey Merino, JOMAR [phone]
[2017-04-01] MEDS ORDERED: RECOMBINANT IV ONE (08:15)
[2017-04-01] MEDS ORDERED: ALTEPLASE IV ONE (08:15)
[2017-04-01] MEDS ORDERED: NITROGLYCERIN/D5W 100MCG/ML 20ML SYR ONE (08:17)
[2017-04-01] MEDS ORDERED: LIDOCAINE HCL 1% 20 ML VIAL INJ ONE (08:18)
[2017-04-01] MEDS ORDERED: FENTANYL CITRATE INJ 50 MCG/1 ML 2 ML VIAL IV ONE ×4 (08:19→10:42)
[2017-04-01] MEDS ORDERED: MIDAZOLAM HCL 1 MG/ML 2ML VIAL IV ONE ×2 (08:19→09:11)
[2017-04-01] MEDS ORDERED: HEPARIN SOD (PORCINE) 1000 UNIT/ML 10 ML VIAL IV ONE ×3 (09:11→10:46)
[2017-04-01] MEDS ORDERED: NURSING VERBAL MED ORDER ONE ×2 (09:15→13:15)
[2017-04-01] MEDS ORDERED: SODIUM CHLORIDE 0.9% 1000ML 1,000 ML IV SCH ×2 (09:15→11:40)
[2017-04-01] MEDS ORDERED: ONDANSETRON INJ 2 MG/ML 2 ML VIAL IV ONE (09:38)
[2017-04-01] MEDS ORDERED: NITROGLYCERIN 5 MG/ML 10 ML VIAL IART ONE ×2 (10:47→11:21)
[2017-04-01] MEDS ORDERED: ORM MISCELLANEOUS MED XX ONE (10:59)
[2017-04-01] MEDS ORDERED: IODIXANOL (VISIPAQUE) 270 MG/ML 150ML FLUSH ONE (11:36)
--- NOTE | 2017-04-01 11:42 | Procedure Note ---
Post-Mod Sedation Assessment General Date of Moderate Sedation Apr 01, 2017. Vital Signs: Vital Signs Past 12 Hours Date Time Temp Pulse Resp B/P (MAP) Pulse Ox O2 Delivery O2 Flow Rate FiO2 04/01/17 08:00 Nasal Cannula 3.0 04/01/17 07:52 36.4 62 19 149/77 93 Nasal Cannula 3.0 04/01/17 07:00 36.4 62 19 149/77 (101) 93 Nasal Cannula 3.0 04/01/17 06:00 53 17 141/66 (91) 91 Nasal Cannula 3.0 04/01/17 05:00 56 16 137/66 (89) 91 Nasal Cannula 3.0 04/01/17 04:00 37.1 54 15 139/66 (90) 92 Nasal Cannula 3.0 04/01/17 03:00 56 16 131/61 (84) 93 Nasal Cannula 3.0 04/01/17 02:00 58 15 133/65 (87) 90 Nasal Cannula 2.0 04/01/17 01:01 62 15 134/65 (88) 90 Nasal Cannula 2.0 04/01/17 00:01 36.7 67 16 165/75 (105) 92 Nasal Cannula 2.0 04/01/17 00:00 Nasal Cannula 2.0 03/31/17 23:05 67 18 93 03/31/17 23:00 64 20 143/70 (94) 89 03/31/17 23:00 64 20 143/70 (94) 89 03/31/17 22:50 64 21 89 03/31/17 22:45 64 21 90 03/31/17 22:35 85 27 90 03/31/17 22:30 36.6 69 22 167/84 (111) 91 Nasal Cannula 2.0 03/31/17 22:20 66 19 89 03/31/17 22:15 63 15 90 03/31/17 22:05 65 27 91 03/31/17 22:00 67 21 149/69 (95) 89 03/31/17 21:50 65 17 90 03/31/17 21:35 36.8 66 21 178/86 (116) 90 Nasal Cannula 2.0 03/31/17 21:20 67 16 87 Room Air Review - Discharge Criteria Vital Signs Stable: Yes Alert/Oriented/Conversant: Yes Returned to Baseline Mental St: Yes Nausea Absent/Minimal: Yes Pain/Discomfort/Absent/Minimal: Yes Normal/Baseline Respirations: Yes Active Bleeding?: No Pt Received D/C Instructions: N/A Prescriptions Given: Transmitted Specific Proced. D/C Criteria Distal Pulses Present (Cardiac: Yes Groin site assessed-Card Cath: N/A Voided Prior To Discharge: N/A Discharged Patients Adult Escort/Transportation: Yes
--- NOTE | 2017-04-01 11:56 | [facility] Operative Report ---
Operative Report Operative Date Apr 01, 2017. Pre-Operative Diagnosis Acute Limb Ischemia Post-Operative Diagnosis Acute Limb Ischemia PAD Procedure(s) Performed TPA assisted Mechanical Thrombectomy SFA/Popliteal Artery RASPBERRY CHECKER SFA/popliteal RASPBERRY CHECKER proximal peroneal RASPBERRY CHECKER ostial AT Tigris stent to mid SFA Surgeon Richard Coke Crusher Operator Surgeon(s) Jada Estimated Blood Loss 100 Findings - Acute occlusion of prior SFA/popliteal stent with thrombus extending into TPT trunk - Severe ostial AT disease - Severe proximal Peroneal disease - Diffuse moderate to severe mid SFA disease. Fluids 360 Specimens None Drains None Anesthesia Moderate Complication(s) None Disposition Surgical ICU Indications Acute Limb Ischemia Description of Procedure - R SAUSAGE MIXER access - Up and over with RIM catheter and glideadvantage wire - Angiography of distal LLE with multipurpose catheter in the L SAUSAGE MIXER - 7Fr destination 45 cm sheath placed - Maganadjosue quickcross advanced into peroneal - Angiojet power pulse with 10mg alteplase in 50 ml NS - 25 minute dwell time - 3 runs of angiojet from proximal to stent to peroneal - RASPBERRY CHECKER with 6.0x40 mm balloon to SFA/popliteal stent. - 0.14 command wire exchanged into peroneal - Proximal peroneal ballooned with 2.0 and 3.0 x 40 balloons - 2nd 0.14 command wire placed into AT - Ostial AT ballooned with 2.0 and 3.0 balloons - Mid SFA proximal to prior stents ballooned with 6.0 balloon - 6.0 x 100 Tigris stent placed to mid SFA overlapping prior stent distally. - Post procedure stents well expanded, no apparent arterial complications and 2 vessel distal runoff to the foot. Recommendations: - Return to ICU for continued monitoring. - Resume heparin 1 hour post procedure --> will plan eventually to transition to oral anticoagulant for likely 3 months - Continue DAPT with ASA/Clopidogrel - IV fluids for large contrast dye load. I attest to the content of the Intraoperative Record and any orders documented therein. Any exceptions are noted below.
[2017-04-01] MEDS: HEPARIN 25,000 UNIT/500ML D5W 500 ML IV PRN (14:57)
--- NOTE | 2017-04-01 14:58 | Critical Care Consultation ---
Critical Care Consultation Date of Consultation: Apr 01, 2017. Attending Physician: Tevin Wilkerson MD Reason for Consultation: Ischemic limb History of Present Illness This a 76 year old male with past medical history of diabetes, peripheral vascular disease, hypertension, rheumatoid arthritis, polycythemia vera s/p recent intervention for left lower extremity arterial disease, treated 6 days ago with 2 stents in left distal SFA and popliteal artery after noticing ischemic changes in the left 5th toe, returned to ED last night for discomfort in the left foot and discoloration. In ED an arterial Doppler ultrasound showed occlusion of the left femoral and popliteal stents with significantly diminished distal flow. Was placed on heparin drip overnight and this morning he went for angiographic intervention. The right groin was accessed and a left lower extremity angiogram was performed, undergoing mechanical thrombectomy, thrombolysis, balloon angioplasty and placement of a new stent. Patient returned to ICU, now he has audible DP and PT by Doppler on the left. Feels good, has no complaints. Past Medical/Surgical History Peripheral vascular disease Diabetes mellitus Rheumatoid arthritis Polycythemia Vera Hyperlipidemia Hypertension Social History Smoking Status: Never Smoker Drug Use: none Marital Status: Housing Status: lives with family Occupation Status: retired Allergies Coded Allergies: Sulfa Antibiotics (Verified Allergy, Intermediate, HIVES, 03/26/17) Atorvastatin (Verified Adverse Reaction, Mild, LEG CRAMPS, 03/26/17) Cilostazol (Verified Adverse Reaction, Mild, DIARRHEA, 03/26/17) Home Medications Scheduled Aspirin (Aspirin Ec), 81 MG PO QPM Clopidogrel Bisulfate (Plavix), 1 TAB PO DAILY Hctz/Lisinopril (Lisinopril/Hctz 20/25 Mg), 1 TAB PO QAM Multivitamin (Multivitamin), 1 TAB PO QAM Prednisone (Prednisone), 3 MG PO QPM Rosuvastatin Calcium (Crestor), 1 TAB PO DAILY [Hydroxyurea], 500 MG PO BID Scheduled PRN Ibuprofen Tab (Advil), 200 MG PO Q6 PRN for Pain Miscellaneous Medications Cod Liver Oil (Cod Liver Oil) Current Inpatient Medications Current Inpatient Medications Medications (Trade) Dose Ordered Sig/Dillon Route Start Time Stop Time Status Last Admin Dose Admin Heparin Sodium/ Dextrose 500 ml @ 26 mls/hr [id number] PRN IV 03/31/17 15:00 04/30/17 14:59 Future hold 03/31/17 15:14 26 MLS/HR Ondansetron HCl (Zofran Inj) 4 mg Q6H PRN IV 03/31/17 15:45 04/30/17 15:44 Aspirin (Ecotrin Tab) 81 mg QPM PO 03/31/17 21:00 04/30/17 20:59 03/31/17 20:34 81 MG Clopidogrel Bisulfate (plAVix TAB) 75 mg DAILY PO 04/01/17 09:00 05/01/17 08:59 04/01/17 07:20 75 MG HCTZ/Lisinopril (Prinzide 20-25MG Tab) 1 tab QAM PO 04/01/17 09:00 05/01/17 08:59 04/01/17 12:34 1 TAB Multivitamins (Multivitamin Tab) 1 tab QAM PO 04/01/17 09:00 05/01/17 08:59 Prednisone (PredniSONE TAB) 3 mg QPM PO 03/31/17 21:00 04/30/17 20:59 03/31/17 20:32 3 MG Hydroxyurea (Hydrea Cap) 500 mg BID PO 03/31/17 21:00 04/30/17 20:59 03/31/17 20:34 500 MG Rosuvastatin Calcium (Crestor Tab) 20 mg QAM PO 04/01/17 09:00 05/01/17 08:59 04/01/17 12:34 20 MG Miscellaneous (Iv Fluids Completed) 1 ea PRN PRN N/A 03/31/17 16:15 03/31/18 16:14 Insulin Aspart (novoLOG ASPART) SLIDING SCALE G... ACHS SC 03/31/17 21:00 04/30/17 20:59 03/31/17 22:06 1 UNITS Glucose (Glucose 40% Gel) 15-30 GRAMS 15 GRAMS... UD PRN PO 03/31/17 20:30 04/30/17 20:29 Glucose (Glucose Chew Tab) 4-8 Tablets 4 Tabl... UD PRN PO 03/31/17 20:30 04/30/17 20:29 Dextrose (Dextrose 50% 50ML Syringe) 25-50ML OF 50% DW IV FOR... UD PRN IV 03/31/17 20:30 04/30/17 20:29 Glucagon (Glucagon Inj) 1 mg UD PRN SQ 03/31/17 20:30 04/30/17 20:29 Sodium Chloride 1,000 ml @ 125 mls/hr Q8H IV 04/01/17 11:40 04/01/17 19:39 04/01/17 12:34 125 MLS/HR Review of Systems Constitutional: No fever, No chills, No sweats, No weight loss, No weakness, No fatigue, No problem reported ENT: No hearing loss, No unusual epistaxis, No nasal symptoms, No sore throat, No tinnitus, No dental problems, No trouble swallowing, No problem reported Respiratory: No cough, No sputum, No wheezing, No shortness of breath, No dyspnea on exertion, No dyspnea at rest, No hemoptysis, No problem reported Cardiovascular: No chest pain, No orthopnea, No PND, No edema, No claudication , No palpitations, No problem reported Abdomen: No pain, No nausea, No vomiting, No diarrhea, No constipation, No GI bleeding, No problem reported Musculoskeletal: + calf pain Neurologic: No memory loss, No paralysis, No weakness, No numbness/tingling, No vertigo, No balance problems, No problem reported Integumentary: + problem reported (cooler left foot) Physical Exam Date Time Temp Pulse Resp B/P (MAP) Pulse Ox O2 Delivery O2 Flow Rate FiO2 04/01/17 13:06 66 19 159/81 (107) 96 Nasal Cannula 3.0 04/01/17 12:45 63 17 179/113 (135) 96 Nasal Cannula 3.0 04/01/17 12:31 61 14 163/86 (111) 96 Nasal Cannula 3.0 04/01/17 12:15 36.8 59 18 171/76 (107) 97 Nasal Cannula 3.0 04/01/17 12:06 64 17 158/80 (106) 95 Nasal Cannula 3.0 04/01/17 12:05 Nasal Cannula 3.0 04/01/17 11:40 61 14 190/74 94 Nasal Cannula 3 04/01/17 08:00 Nasal Cannula 3.0 04/01/17 07:52 36.4 62 19 149/77 93 Nasal Cannula 3.0 04/01/17 07:00 36.4 62 19 149/77 (101) 93 Nasal Cannula 3.0 04/01/17 06:00 53 17 141/66 (91) 91 Nasal Cannula 3.0 04/01/17 05:00 56 16 137/66 (89) 91 Nasal Cannula 3.0 04/01/17 04:00 37.1 54 15 139/66 (90) 92 Nasal Cannula 3.0 04/01/17 03:00 56 16 131/61 (84) 93 Nasal Cannula 3.0 04/01/17 02:00 58 15 133/65 (87) 90 Nasal Cannula 2.0 04/01/17 01:01 62 15 134/65 (88) 90 Nasal Cannula 2.0 04/01/17 00:01 36.7 67 16 165/75 (105) 92 Nasal Cannula 2.0 04/01/17 00:00 Nasal Cannula 2.0 03/31/17 23:05 67 18 93 03/31/17 23:00 64 20 143/70 (94) 89 03/31/17 23:00 64 20 143/70 (94) 89 03/31/17 22:50 64 21 89 03/31/17 22:45 64 21 90 03/31/17 22:35 85 27 90 03/31/17 22:30 36.6 69 22 167/84 (111) 91 Nasal Cannula 2.0 03/31/17 22:20 66 19 89 03/31/17 22:15 63 15 90 03/31/17 22:05 65 27 91 03/31/17 22:00 67 21 149/69 (95) 89 03/31/17 21:50 65 17 90 03/31/17 21:35 36.8 66 21 178/86 (116) 90 Nasal Cannula 2.0 03/31/17 21:20 67 16 87 Room Air 03/31/17 20:00 Room Air 03/31/17 19:22 37.1 65 20 145/66 (92) 95 Room Air 03/31/17 17:10 68 18 167/81 93 03/31/17 15:49 36.7 60 18 197/67 96 Room Air 03/31/17 15:21 62 18 151/64 92 Room Air General Appearance: well-appearing, WD/WN, no apparent distress Eyes: PERRLA Neck: trachea midline, supple Respiratory: breath sounds normal, clear to auscultation, no respiratory distress Cardiovasular: regular rate/rhythm, normal S1S2, no M/G/R Abdomen: non tender, no rebound, no guarding Upper Extremities: no edema Lower Extremities: no edema, abnormal exam (gangrenous left fifth toe. ) Pulses: dorsalis pedis (L), posterior tibial (L) (Present by Doppler, diminished compared to right) Neuro: alert, oriented x 3, normal motor exam, normal sensation Laboratory Results Last 24 Hours Test 03/31/17 20:06 03/31/17 20:58 03/31/17 23:10 04/01/17 03:56 Bedside Glucose 200 mg/dl Activated Partial Thromboplast Time 60.1 SECONDS 51.0 SECONDS Partial Thromboplastin Ratio 2.3 2.0 Vitamin B12 Level 736 pg/mL Lactic Acid Level 0.7 mmol/L Test 04/01/17 06:12 04/01/17 09:03 04/01/17 10:09 04/01/17 10:37 Bedside Glucose 145 mg/dl Kaolin Activated Coagulation Time 109 SECONDS 153 SECONDS 191 SECONDS Diagnostic Results 03/31/17 arterial doppler ultrasound: 1. 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 Flow distal to the stents is significantly diminished with dampened monophasic flow within the left anterior tibial, peroneal and dorsalis pedis vessels. No flow within the left posterior tibial artery. Findings discussed with Dr. Quintero at time of dictation. Vascular consultation is recommended. 2. Extensive atherosclerotic plaque within the left lower extremity. Assessment & Plan 76 year old male with h/o diabetes, PVD, RA, polycythemia vera, hyperlipidemia, presents to reocclusion of recently placed left SFA and popliteal stents S/p revascularization of arterial occlusion with stent placement Plan: Resume anticoagulation for now with heparin drip Resumed ASA and Plavix. Continue to monitor pulses To be considered for oral anticoagulation per cardiology. Would consider switching Plavix to a different antiplatelet as this event may represent Plavix resistance Continue antihypertensive meds. On Lisinopril/HCTZ Continue statin therapy On chronic hydroxyurea and prednisone Aspart sliding scale Critical care time spent greater than 25 minutes Reason for ICU monitoring: frequent pulse-checks, patient at risk for limb loss. Montana Hart MD
[2017-04-01 19:52] LABS: PARTIAL THROMBOPLASTIN RATIO 1.9
--- NOTE | 2017-04-01 20:08 | Progress Note ---
Subjective Date of Service: Apr 01, 2017. Subjective Pt evaluation today including: conversation w/ patient, physical exam, chart review, lab review, review of studies (a-gram), conversation w/ bridal stylist sales consultant ( cardiology, critical care ), review of inpatient medication list Pain: denies foot pain PO Intake: just arrived back from the OR Voiding: no voiding problems tele stable overnight denies complaints of dyspnea, chest pain upon return from the OR Problem List Medical Problems: (1) Arterial occlusion, lower extremity Status: Acute (2) Tick bite of hip Status: Acute Review of Systems Constitutional: No fever Respiratory: No cough, No shortness of breath Cardiac: No chest pain Abdomen: No pain Objective Vital Signs Date Time Temp Pulse Resp B/P (MAP) Pulse Ox O2 Delivery O2 Flow Rate FiO2 04/01/17 18:00 37.0 66 21 135/65 (88) 90 Room Air 04/01/17 16:00 Nasal Cannula 3.0 04/01/17 15:39 36.6 59 22 177/78 (111) 93 Nasal Cannula 3.0 04/01/17 13:06 66 19 159/81 (107) 96 Nasal Cannula 3.0 04/01/17 12:45 63 17 179/113 (135) 96 Nasal Cannula 3.0 04/01/17 12:31 61 14 163/86 (111) 96 Nasal Cannula 3.0 04/01/17 12:15 36.8 59 18 171/76 (107) 97 Nasal Cannula 3.0 04/01/17 12:06 64 17 158/80 (106) 95 Nasal Cannula 3.0 04/01/17 12:05 Nasal Cannula 3.0 04/01/17 11:40 61 14 190/74 94 Nasal Cannula 3 04/01/17 08:00 Nasal Cannula 3.0 04/01/17 07:52 36.4 62 19 149/77 93 Nasal Cannula 3.0 04/01/17 07:00 36.4 62 19 149/77 (101) 93 Nasal Cannula 3.0 04/01/17 06:00 53 17 141/66 (91) 91 Nasal Cannula 3.0 04/01/17 05:00 56 16 137/66 (89) 91 Nasal Cannula 3.0 04/01/17 04:00 37.1 54 15 139/66 (90) 92 Nasal Cannula 3.0 04/01/17 03:00 56 16 131/61 (84) 93 Nasal Cannula 3.0 04/01/17 02:00 58 15 133/65 (87) 90 Nasal Cannula 2.0 04/01/17 01:01 62 15 134/65 (88) 90 Nasal Cannula 2.0 04/01/17 00:01 36.7 67 16 165/75 (105) 92 Nasal Cannula 2.0 04/01/17 00:00 Nasal Cannula 2.0 03/31/17 23:05 67 18 93 03/31/17 23:00 64 20 143/70 (94) 89 03/31/17 23:00 64 20 143/70 (94) 89 03/31/17 22:50 64 21 89 03/31/17 22:45 64 21 90 03/31/17 22:35 85 27 90 03/31/17 22:30 36.6 69 22 167/84 (111) 91 Nasal Cannula 2.0 03/31/17 22:20 66 19 89 03/31/17 22:15 63 15 90 03/31/17 22:05 65 27 91 03/31/17 22:00 67 21 149/69 (95) 89 03/31/17 21:50 65 17 90 03/31/17 21:35 36.8 66 21 178/86 (116) 90 Nasal Cannula 2.0 03/31/17 21:20 67 16 87 Room Air 03/31/17 20:00 Room Air Physical Exam General Appearance: no apparent distress ENT: pharynx normal Neck: no JVD Respiratory/Chest: lungs clear, no respiratory distress, no accessory muscle use Cardiovascular: regular rate, rhythm, no gallop, + systolic murmur (RUSB, 2/6) Abdomen: normal bowel sounds, non tender, soft, no organomegaly Extremities: no pedal edema Neurologic/Psychiatric: alert, oriented x 3 Skin: + pertinent finding (dry gangrene - 5th toe, left foot - completely black ; dusky 1st-4th toes; mildly dusky metatarsal heads - plantar aspect) Comments: vascular - pulses, left foot - <1+ DP and pos tib; cap refill 2-3 sec pulses, right foot - about 1+ DP and pos tib Laboratory Results Last 24 Hours Test 03/31/17 20:06 03/31/17 20:58 03/31/17 23:10 04/01/17 03:56 Bedside Glucose 200 mg/dl Activated Partial Thromboplast Time 60.1 SECONDS 51.0 SECONDS Partial Thromboplastin Ratio 2.3 2.0 Vitamin B12 Level 736 pg/mL Lactic Acid Level 0.7 mmol/L Test 04/01/17 06:12 04/01/17 09:03 04/01/17 10:09 04/01/17 10:37 Bedside Glucose 145 mg/dl Kaolin Activated Coagulation Time 109 SECONDS 153 SECONDS 191 SECONDS Test 04/01/17 12:39 04/01/17 16:25 04/01/17 19:06 Bedside Glucose 145 mg/dl 203 mg/dl Assessment and Plan 76yo male: 1. 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 2. PAD s/p SFA stent and popliteal stent 1 week ago with re-occlusion of SFA stent - s/p a-gram today by Dr. Ramos with placement of new stent, atherectomy, and angioplasty. Defer management to Dr. Ramos. Heparin drip to be resumed. Cont antiplatelet agents. High-intensity statin. 2. hyperglycemia - previous hemoglobin a1c was 6.6% c/w T2DM. start lantus 10 units HS novolog supplement scale - start with correction of 45 with goal range 120-160 Adjust as needed 3. HTN - continue home meds 4. DVT proph - heparin drip 5. PAD - asa, plavix, statin, control of T2DM, etc 6. RA - continue prednisone dose from home; stress dose steroids as needed 7. macrocytic anemia - b12 normal; check folic acid in am 8. hydroxyurea use - indication ?? Continued [facility] stay due to: multiple IV medications needed Discharge planning: uncertain
--- NOTE | 2017-04-01 20:10 | Progress Note ---
Progress Note Date of Service Apr 01, 2017. Progress Note In my clinical judgment this beneficiary meets acute admission criteria, established by CMS, that includes being hospitalized through two midnights. Tevin Wilkerson MD
[2017-04-01] MEDS: ASPIRIN 81 MG ECTAB PO SCH (21:01)
[2017-04-01] MEDS: INSULIN GLARGINE SOLOSTAR 100 UNITS/ML 3 ML PEN SC SCH (21:09)
[2017-04-02] VITALS (15 sets, daily range): BP systolic 94–137; BP diastolic 48–70; PULSE 56–76; TEMP 36.3–36.9; O2SAT 90–95
[2017-04-02 05:33] LABS: HEMATOCRIT 32.6 % (42-52); MEAN CELL VOLUME 102.8 fL (80-100); MEAN CORPUSCULAR HEMOGLOBIN 35.6 pg (25-34); MEAN CORPUSCULAR HGB CONC 34.7 g/dl (32-36); MEAN PLATELET VOLUME 10.7 fL (7.4-10.4); PLATELET COUNT 243 K/uL (130-400); RED BLOOD COUNT 3.17 M/uL (4.7-6.1); WHITE BLOOD COUNT 8.51 K/uL (4.8-10.8)
[2017-04-02 05:52] LABS: PARTIAL THROMBOPLASTIN RATIO 2.3
[2017-04-02 06:07] LABS: BUN/CREATININE RATIO 18.8 (10-20); CALCIUM 8.1 mg/dl (8.5-10.1); CREATININE 1.2 mg/dl (0.60-1.40); POTASSIUM 3.6 mmol/L (3.5-5.1)
[2017-04-02] MEDS: INSULIN ASPART 100 UNITS/ML 3 ML PEN SC SCH ×4 (07:15→20:39)
[2017-04-02] MEDS: CLOPIDOGREL BISULFATE 75 MG TAB PO SCH (07:44)
[2017-04-02] MEDS: MULTIVITAMIN TAB PO SCH (07:44)
[2017-04-02] MEDS: LISINOPRIL/HCTZ 20/25MG TAB PO SCH (07:44)
[2017-04-02] MEDS: ROSUVASTATIN CALCIUM 20 MG TAB PO SCH (07:44)
[2017-04-02] MEDS: HYDROXYUREA 500 MG CAP PO SCH ×2 (07:45→20:42)
[2017-04-02] MEDS: HEPARIN 25,000 UNIT/500ML D5W 500 ML IV PRN (11:24)
--- NOTE | 2017-04-02 12:08 | Critical Care Progress Note ---
Critical Care Progress Note Date of Service Apr 02, 2017. Attending Dr. Hart Subjective Doing well, no complaints, no calf pain. Tolerating diet Objective General: No distress Heent: NC/AT Lungs: CTA b/l CVS: S1S2 regular, no murmur Abdomen: soft, non-tender, non-distended Extremities: Doppler positive pulses in both DP and PT. Gangrenous left fifth toe PATTERN MAKER: AAOx3, no deficit Assessment & Plan 76 year old male with h/o diabetes, PVD, RA, polycythemia vera, hyperlipidemia, presents to reocclusion of recently placed left SFA and popliteal stents S/p revascularization of arterial occlusion with stent placement Plan: Resume anticoagulation for now with heparin drip Resumed ASA and Plavix. Continue to monitor pulses Continue ASA and Plavix The patient has h/o thrombotic events, will transition the heparin drip to an oral anticoagulant. Apparently he failed Xarelto in the past, developing a DVT (post ortho surgery). Recommend hematology input in his case, he may have an additional component of hypercoagulability making him prone to thrombotic events Continue antihypertensive meds. On Lisinopril/HCTZ Continue statin therapy On chronic hydroxyurea and prednisone Aspart sliding scale Critical care time spent greater than 25 minutes May transfer out of ICU, will sign off from a critical care standpoint Montana aHrt MD Consults & Procedures Consultants: Cardiology - Dr Ramos Procedures: LE angiogram with stent placement - 04/01/17 Data Medications: Current Inpatient Medications Medications (Trade) Dose Ordered Sig/Dillon Route Start Time Stop Time Status Last Admin Dose Admin Heparin Sodium/ Dextrose 500 ml @ 26 mls/hr [id number] PRN IV 03/31/17 15:00 04/30/17 14:59 Future hold 04/02/17 11:24 26 MLS/HR Ondansetron HCl (Zofran Inj) 4 mg Q6H PRN IV 03/31/17 15:45 04/30/17 15:44 Aspirin (Ecotrin Tab) 81 mg QPM PO 03/31/17 21:00 04/30/17 20:59 04/01/17 21:01 81 MG Clopidogrel Bisulfate (plAVix TAB) 75 mg DAILY PO 04/01/17 09:00 05/01/17 08:59 04/02/17 07:44 75 MG HCTZ/Lisinopril (Prinzide 20-25MG Tab) 1 tab QAM PO 04/01/17 09:00 05/01/17 08:59 04/02/17 07:44 1 TAB Multivitamins (Multivitamin Tab) 1 tab QAM PO 04/01/17 09:00 05/01/17 08:59 04/02/17 07:44 1 TAB Prednisone (PredniSONE TAB) 3 mg QPM PO 03/31/17 21:00 04/30/17 20:59 04/01/17 21:01 3 MG Hydroxyurea (Hydrea Cap) 500 mg BID PO 03/31/17 21:00 04/30/17 20:59 04/02/17 07:45 500 MG Rosuvastatin Calcium (Crestor Tab) 20 mg QAM PO 04/01/17 09:00 05/01/17 08:59 04/02/17 07:44 20 MG Miscellaneous (Iv Fluids Completed) 1 ea PRN PRN N/A 03/31/17 16:15 03/31/18 16:14 Glucose (Glucose 40% Gel) 15-30 GRAMS 15 GRAMS... UD PRN PO 03/31/17 20:30 04/30/17 20:29 Glucose (Glucose Chew Tab) 4-8 Tablets 4 Tabl... UD PRN PO 03/31/17 20:30 04/30/17 20:29 Dextrose (Dextrose 50% 50ML Syringe) 25-50ML OF 50% DW IV FOR... UD PRN IV 03/31/17 20:30 04/30/17 20:29 Glucagon (Glucagon Inj) 1 mg UD PRN SQ 03/31/17 20:30 04/30/17 20:29 Insulin Glargine (Lantus Solostar Pen) 10 units HS SC 04/01/17 21:00 05/01/17 20:59 04/01/17 21:09 10 UNITS Insulin Aspart (novoLOG ASPART) SLIDING SCALE G... ACHS SC 04/01/17 21:00 05/01/17 20:59 04/02/17 11:23 1 UNITS Vital Signs: Date Time Temp Pulse Resp B/P (MAP) Pulse Ox O2 Delivery O2 Flow Rate FiO2 04/02/17 10:00 68 21 106/50 (68) 93 Nasal Cannula 3.0 04/02/17 08:14 36.5 76 20 100/51 (67) 93 Nasal Cannula 3.0 04/02/17 08:00 Nasal Cannula 3.0 04/02/17 07:01 61 18 115/58 (77) 92 Nasal Cannula 3.0 04/02/17 06:00 66 15 137/70 (92) 93 04/02/17 04:01 36.8 62 17 111/57 (75) 93 Nasal Cannula 4.0 04/02/17 04:00 Nasal Cannula 4.0 04/02/17 03:00 56 17 96/48 (64) 90 Nasal Cannula 4.0 04/02/17 01:00 58 16 97/51 (66) 91 Nasal Cannula 4.0 04/02/17 00:00 36.9 65 18 94/52 (66) 94 Nasal Cannula 4.0 04/01/17 23:59 Nasal Cannula 4.0 04/01/17 22:07 36.8 70 16 115/55 (75) 90 Nasal Cannula 4.0 04/01/17 20:36 37.2 67 21 91 Nasal Cannula 3.0 04/01/17 20:00 Nasal Cannula 3.0 04/01/17 18:00 37.0 66 21 135/65 (88) 90 Room Air 04/01/17 16:00 Nasal Cannula 3.0 04/01/17 15:39 36.6 59 22 177/78 (111) 93 Nasal Cannula 3.0 04/01/17 13:06 66 19 159/81 (107) 96 Nasal Cannula 3.0 04/01/17 12:45 63 17 179/113 (135) 96 Nasal Cannula 3.0 04/01/17 12:31 61 14 163/86 (111) 96 Nasal Cannula 3.0 04/01/17 12:15 36.8 59 18 171/76 (107) 97 Nasal Cannula 3.0 04/01/17 12:06 64 17 158/80 (106) 95 Nasal Cannula 3.0 04/01/17 12:05 Nasal Cannula 3.0 Laboratory Results: Last 24 Hours Test 04/01/17 12:39 04/01/17 16:25 04/01/17 19:06 04/01/17 20:27 Bedside Glucose 145 mg/dl 203 mg/dl 139 mg/dl Activated Partial Thromboplast Time 49.6 SECONDS Partial Thromboplastin Ratio 1.9 Test 04/02/17 05:04 04/02/17 06:55 White Blood Count 8.51 K/uL Red Blood Count 3.17 M/uL Hemoglobin 11.3 g/dL Hematocrit 32.6 % Mean Corpuscular Volume 102.8 fL Mean Corpuscular Hemoglobin 35.6 pg Mean Corpuscular Hemoglobin Concent 34.7 g/dl RDW Standard Deviation 53.4 fL RDW Coefficient of Variation 14.3 % Platelet Count 243 K/uL Mean Platelet Volume 10.7 fL Activated Partial Thromboplast Time 60.9 SECONDS Partial Thromboplastin Ratio 2.3 Sodium Level 140 mmol/L Potassium Level 3.6 mmol/L Chloride Level 106 mmol/L Carbon Dioxide Level 29 mmol/L Anion Gap 5.0 mmol/L Blood Urea Nitrogen 23 mg/dl Creatinine 1.20 mg/dl Est Creatinine Clear Calc Drug Dose 51.6 ml/min Estimated GFR () 67.2 Estimated GFR (Non- 58.0 BUN/Creatinine Ratio 18.8 Random Glucose 137 mg/dl Calcium Level 8.1 mg/dl Folate > 24.00 ng/mL Bedside Glucose 149 mg/dl
--- NOTE | 2017-04-02 14:03 | Hospitalist Progress Note ---
Hospitalist Progress Note Date of Service Apr 02, 2017. (Sruthi Villalpando ., ALICIA) Subjective Pt evaluation today including: conversation w/ patient, physical exam, chart review, lab review, review of inpatient medication list Pain: None PO Intake: Tolerating PO diet Voiding: no voiding problems Patient reports feeling well. He denies any lower extremity pain, numbness or tingling. He denies any complaints at this time. The patient denies fevers, chills, sweats, chest pain, palpitations, claudication, cough, wheezing, shortness of breath, nausea, vomiting, abdominal pain, dysuria, hematuria, urinary retention, paralysis, weakness, numbness and tingling. Additional Comments: See HPI for pertinent positives and negatives. All other systems reviewed and negative. (Sruthi Villalpando ., RAVINDRAC) Objective Vital Signs Date Time Temp Pulse Resp B/P (MAP) Pulse Ox O2 Delivery O2 Flow Rate FiO2 04/02/17 13:03 36.7 64 18 91 3.0 04/02/17 12:01 36.7 64 18 118/56 (76) 91 Nasal Cannula 3.0 04/02/17 12:00 Nasal Cannula 3.0 04/02/17 10:00 68 21 106/50 (68) 93 Nasal Cannula 3.0 04/02/17 08:14 36.5 76 20 100/51 (67) 93 Nasal Cannula 3.0 04/02/17 08:00 Nasal Cannula 3.0 04/02/17 07:01 61 18 115/58 (77) 92 Nasal Cannula 3.0 04/02/17 06:00 66 15 137/70 (92) 93 04/02/17 04:01 36.8 62 17 111/57 (75) 93 Nasal Cannula 4.0 04/02/17 04:00 Nasal Cannula 4.0 04/02/17 03:00 56 17 96/48 (64) 90 Nasal Cannula 4.0 04/02/17 01:00 58 16 97/51 (66) 91 Nasal Cannula 4.0 04/02/17 00:00 36.9 65 18 94/52 (66) 94 Nasal Cannula 4.0 04/01/17 23:59 Nasal Cannula 4.0 04/01/17 22:07 36.8 70 16 115/55 (75) 90 Nasal Cannula 4.0 04/01/17 20:36 37.2 67 21 91 Nasal Cannula 3.0 04/01/17 20:00 Nasal Cannula 3.0 04/01/17 18:00 37.0 66 21 135/65 (88) 90 Room Air 04/01/17 16:00 Nasal Cannula 3.0 04/01/17 15:39 36.6 59 22 177/78 (111) 93 Nasal Cannula 3.0 (Sruthi Villalpando ., PA-C) Physical Exam Notes: General appearance: Well-developed, well-nourished, no apparent distress Head: Normocephalic, atraumatic Eyes: Normal inspection, PERRL, EOMI ENT: Normal ENT inspection, hearing grossly normal, pharynx normal Neck: Supple, no JVD, trachea midline Respiratory/Chest: Lungs clear to auscultation, normal breath sounds, no respiratory distress Cardiovascular: +Systolic murmur. Regular rate & rhythm, no gallop, no murmur Abdomen/GI: Normal bowel sounds, non-tender, soft Extremities/Musculoskeletal: 1+ pedal pulses bilaterally. R foot cool to the touch, L foot warm. 5th left toe necrotic, dry gangrene. No calf tenderness, no pedal edema Neurological/Psych: Alert, normal mood/affect, oriented x 3 Skin: Normal color, warm/dry, no rash (Sruthi Villalpando ., PA-C) Laboratory Results Last 24 Hours Test 04/01/17 16:25 04/01/17 19:06 04/01/17 20:27 04/02/17 05:04 Bedside Glucose 203 mg/dl 139 mg/dl Activated Partial Thromboplast Time 49.6 SECONDS 60.9 SECONDS Partial Thromboplastin Ratio 1.9 2.3 White Blood Count 8.51 K/uL Red Blood Count 3.17 M/uL Hemoglobin 11.3 g/dL Hematocrit 32.6 % Mean Corpuscular Volume 102.8 fL Mean Corpuscular Hemoglobin 35.6 pg Mean Corpuscular Hemoglobin Concent 34.7 g/dl RDW Standard Deviation 53.4 fL RDW Coefficient of Variation 14.3 % Platelet Count 243 K/uL Mean Platelet Volume 10.7 fL Sodium Level 140 mmol/L Potassium Level 3.6 mmol/L Chloride Level 106 mmol/L Carbon Dioxide Level 29 mmol/L Anion Gap 5.0 mmol/L Blood Urea Nitrogen 23 mg/dl Creatinine 1.20 mg/dl Est Creatinine Clear Calc Drug Dose 51.6 ml/min Estimated GFR () 67.2 Estimated GFR (Non- 58.0 BUN/Creatinine Ratio 18.8 Random Glucose 137 mg/dl Calcium Level 8.1 mg/dl Folate > 24.00 ng/mL Test 04/02/17 06:55 Bedside Glucose 149 mg/dl (Sruthi Villalpando ., PADamarisC) Assessment and Plan 76 y/o with a history of PAD, DM II, HTN, HLD, and RA who had recently had peripheral angiography with stent placement and presented with progressive coldness in the LLE. 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 Pt stable, no acute events overnight. Transfer to tele 04/02 -Cardiology consulted, appreciate recs -Continue heparin drip -Continue Crestor 20 mg PO qd -Continue ASA/Plavix Dry gangrene left 5th toe -Consult orthopedics for amputation. Pt has seen Dr. Armijo in the past DM II--last HgbA1c checked on 12/24/16 was 6.6 -Continue Lantus 10 units SC qhs -Insulin sliding scale -Check BSGs q ac and qhs -Recheck HgbA1c HTN--stable -Continue lisinopril/HCTZ 20/25 mg PO qd HLD -Crestor as above RA--stable -Continue Prednisone 3 mg PO qpm and hydroxyurea 500 mg PO BID Macrocytic anemia -Hgb stable -Folate WNL. B12 WNL DVT prophylaxis -Heparin drip Code Status -Level I, FULL RESUSCITATION STATUS (Sruthi Villalpando ., PA-C) Attending Attestation: Pt seen/examined, chart reviewed, and care plan d/w SONNY Villalpando. I agree w/ the gaston components of her documentation. Pt denies any cp, dyspnea, left foot pain. He feels that it "looks better" today. VSS no fever gen - nad neck - no JVD heart - RRR lungs - CTA b/l abd - soft ext - pulses left foot about 1+; much better than yesterday; foot is warmer today in fact it is warmer than the right foot; cap refill < 2 sec; perfusion to toes 1-4 much better; 5th toe remains black/necrotic and dry gangrene A/P: 1. PAD of left leg with occlusion of recently placed stents, s/p a-gram with placement of new stent, atherectomy, angioplasty, etc. continue aggressive Rx including heparin drip, antiplatelet agents, statin, etc. 2. left 5th toe dry gangrene - appears nonviable even despite buddhism of good blow flow - ortho consult for consideration of amputation 3. ok to transfer to [facility] from ICU agree with Dr. Ramos that long-term coumadin is best option for anticoagulation Jose Antonio WILKERSON MD (Tevin Wilkerson MD)
--- NOTE | 2017-04-02 16:42 | Cardiology Follow-Up ---
Subjective Subjective Date of Service: Apr 02, 2017. Pt evaluation today including: conversation w/ patient, physical exam, chart review, lab review, review of studies, review of inpatient medication list Problem List Medical Problems: (1) Arterial occlusion, lower extremity Status: Acute (2) Tick bite of hip Status: Acute Review of Systems Constitutional: No fever Respiratory: No cough, No shortness of breath Cardiac: No chest pain Abdomen: No pain Musculoskeletal: + swelling Heme: No abnormal bleeding/bruising Endo: No fatigue Objective Vital Signs Last Vital Signs Documentation Date Time Temp Pulse Resp B/P (MAP) Pulse Ox O2 Delivery O2 Flow Rate FiO2 04/02/17 14:00 68 20 122/60 (80) 92 Nasal Cannula 3.0 04/02/17 13:03 36.7 Physical Exam: General Appearance: no apparent distress ENT: pharynx normal Neck: no JVD Respiratory/Chest: lungs clear, no respiratory distress, no accessory muscle use Cardiovascular: regular rate, rhythm, no gallop, + systolic murmur (RUSB, 2/6) , + pertinent finding (palpable left DP pulse. diminshed capillary refill in 1- 4 LLE digits) Abdomen: normal bowel sounds, non tender, soft, no organomegaly Extremities: no pedal edema, + pertinent finding Neurologic/Psychiatric: alert, oriented x 3 Skin: + pertinent finding (dry gangrene - 5th toe, left foot - necrotic; dusky 1st-4th toes; mildly dusky metatarsal heads - plantar aspect) Lymphatic: no adenopathy Assessment and Plan 1. 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 Severe PAD with CLI s/p prior SFA/Pop stenting 03/2016 and necrotic LLE 5th digit 3. DM2 -- on insulin 4. PCV -- plts/hemoglobin stable on hydroxyurea; prior DVT in setting of total hip on prophylactic xarelto 5. ?RA -- on prednisone 6. HTN -- reasonably controlled 7. HLD -- on high-intensity statin Patient POD1 s/p successful endovascular intervention for SFA/Popliteal acute stent thrombosis No significant LLE pain today and patent DP pulse 5th digit necrotic; severe distal pedal disease with marginal perfusion of remaining digits. Discussed case with Dr. Wilkerson -- Fow now: -- OK with transfer to telemetry -- Continue heparin infusion for now --> long-term will plan to transition to coumadin in the setting of prior DVT on prophylactic dose xarelto -- Orthopedic involvement for amputation of 5th digit. Hold coumadin prior to surgery -- Continue ASA/Plavix --> possible switch to ticagrelor on discharge -- continue antihypertensives/high-intensity statin Continued [facility] stay due to: multiple IV medications needed Discharge planning: uncertain Medications: Current Inpatient Medications Medications (Trade) Dose Ordered Sig/Dillon Route Start Time Stop Time Status Last Admin Dose Admin Heparin Sodium/ Dextrose 500 ml @ 26 mls/hr [id number] PRN IV 03/31/17 15:00 04/30/17 14:59 Future hold 04/02/17 11:24 26 MLS/HR Ondansetron HCl (Zofran Inj) 4 mg Q6H PRN IV 03/31/17 15:45 04/30/17 15:44 Aspirin (Ecotrin Tab) 81 mg QPM PO 03/31/17 21:00 04/30/17 20:59 04/01/17 21:01 81 MG Clopidogrel Bisulfate (plAVix TAB) 75 mg DAILY PO 04/01/17 09:00 05/01/17 08:59 04/02/17 07:44 75 MG HCTZ/Lisinopril (Prinzide 20-25MG Tab) 1 tab QAM PO 04/01/17 09:00 05/01/17 08:59 04/02/17 07:44 1 TAB Multivitamins (Multivitamin Tab) 1 tab QAM PO 04/01/17 09:00 05/01/17 08:59 04/02/17 07:44 1 TAB Prednisone (PredniSONE TAB) 3 mg QPM PO 03/31/17 21:00 04/30/17 20:59 04/01/17 21:01 3 MG Hydroxyurea (Hydrea Cap) 500 mg BID PO 03/31/17 21:00 04/30/17 20:59 04/02/17 07:45 500 MG Rosuvastatin Calcium (Crestor Tab) 20 mg QAM PO 04/01/17 09:00 05/01/17 08:59 04/02/17 07:44 20 MG Miscellaneous (Iv Fluids Completed) 1 ea PRN PRN N/A 03/31/17 16:15 03/31/18 16:14 Glucose (Glucose 40% Gel) 15-30 GRAMS 15 GRAMS... UD PRN PO 03/31/17 20:30 04/30/17 20:29 Glucose (Glucose Chew Tab) 4-8 Tablets 4 Tabl... UD PRN PO 03/31/17 20:30 04/30/17 20:29 Dextrose (Dextrose 50% 50ML Syringe) 25-50ML OF 50% DW IV FOR... UD PRN IV 03/31/17 20:30 04/30/17 20:29 Glucagon (Glucagon Inj) 1 mg UD PRN SQ 03/31/17 20:30 04/30/17 20:29 Insulin Glargine (Lantus Solostar Pen) 10 units HS SC 04/01/17 21:00 05/01/17 20:59 04/01/17 21:09 10 UNITS Insulin Aspart (novoLOG ASPART) SLIDING SCALE G... ACHS SC 04/01/17 21:00 05/01/17 20:59 04/02/17 11:23 1 UNITS Lab Results: 04/02/17 05:04 04/02/17 05:04 Test 04/02/17 05:04 04/02/17 15:18 Red Blood Count 3.17 M/uL (4.7-6.1) Mean Corpuscular Volume 102.8 fL (80-100) Mean Corpuscular Hemoglobin 35.6 pg (25-34) Mean Corpuscular Hemoglobin Concent 34.7 g/dl (32-36) RDW Standard Deviation 53.4 fL (36.4-46.3) RDW Coefficient of Variation 14.3 % (11.5-14.5) Mean Platelet Volume 10.7 fL (7.4-10.4) Activated Partial Thromboplast Time 60.9 SECONDS (21.0-31.0) Partial Thromboplastin Ratio 2.3 Anion Gap 5.0 mmol/L (3-11) Est Creatinine Clear Calc Drug Dose 51.6 ml/min Estimated GFR () 67.2 Estimated GFR (Non- 58.0 BUN/Creatinine Ratio 18.8 (10-20) Calcium Level 8.1 mg/dl (8.5-10.1) Folate > 24.00 ng/mL (>5.38) Bedside Glucose 137 mg/dl (70-99)
--- NOTE | 2017-04-02 18:42 | ORTHOPEDIC CONSULTATION ---
DATE OF CONSULTATION: 04/02/2017 HISTORY OF PRESENT ILLNESS: The patient is a 76-year-old male who last week had a peripheral angiography with 2 stents. Prior to that he was having purple discoloration of his fifth toe, left foot. He had some improvement with revascularization. He had some further procedures to open up his stents according to him. PAST MEDICAL HISTORY: Positive for hypertension, diabetes, rheumatoid arthritis, hyperlipidemia, peripheral arterial disease. MEDICATIONS ON ADMISSION: Aspirin, Plavix, hydrochlorothiazide, lisinopril, prednisone, rosuvastatin, hydroxyurea. ALLERGIES: SULFA. REVIEW OF SYSTEMS: Noncontributory. PHYSICAL EXAMINATION: Demonstrates left foot has a gangrenous fifth toe. Fairly well demarcated. The distal half of the toe is gangrenous. The remainder of his toes he has some claw toe deformities but good circulation. No x-rays are available. ASSESSMENT: Gangrenous fifth toe due to peripheral vascular disease. PLAN: Allow demarcation and amputation if felt by vascular service and their satisfactory ability to heal. Is a patient of Dr. Armijo and also Dr. Dumont who is a foot and ankle specialist. We will refer his care to Dr. Dumont if Dr. Armijo is okay with that to have him proceed Friday if he is medically stable.
--- NOTE | 2017-04-02 19:10 | DIAGNOSTIC IMAGING REPORT ---
LEFT FOOT MIN 3 VIEWS ROUTINE CLINICAL HISTORY: Preoperative amputation. COMPARISON: None FINDINGS: Tarsometatarsal joints are intact. Evaluation of the toes is difficult given chronic deformity with hammertoe deformity of the second through fifth toes. However, no fracture or osteolysis is identified on this examination. There is extensive vascular calcification. Mild plantar calcaneal spurring is noted. Mild osteoarthritis is noted within multiple articulations of the left foot. IMPRESSION: 1. No acute fracture or radiographic evidence of osteomyelitis although evaluation of the toes is difficult given hammertoe deformities. 2. Mild hallux valgus and mild arthritis within several articulations of the left foot. Electronically signed by: Andi Oliver M.D. 04/02/2017 7:09 PM Dictated Date/Time: 04/02/2017 6:52 PM
[2017-04-02] MEDS ORDERED: ACETAMINOPHEN 325 MG TAB PO PRN (19:15)
[2017-04-02] MEDS ORDERED: MoRPHine SULFATE 2 MG/ML CARP IV PRN (19:15)
[2017-04-02] MEDS: ASPIRIN 81 MG ECTAB PO SCH (20:40)
[2017-04-02] MEDS: TRAMADOL HCL 50 MG TAB PO PRN (20:41)
[2017-04-02] MEDS: INSULIN GLARGINE SOLOSTAR 100 UNITS/ML 3 ML PEN SC SCH (20:42)
[2017-04-03] VITALS (8 sets, daily range): BP systolic 113–144; BP diastolic 53–64; PULSE 56–71; TEMP 36.8–37.6; O2SAT 92–96
[2017-04-03 07:11] LABS: HEMATOCRIT 34.8 % (42-52); MEAN CELL VOLUME 103.3 fL (80-100); RED BLOOD COUNT 3.37 M/uL (4.7-6.1); WHITE BLOOD COUNT 8.82 K/uL (4.8-10.8)
[2017-04-03 07:12] LABS: MEAN CORPUSCULAR HEMOGLOBIN 35.3 pg (25-34); MEAN CORPUSCULAR HGB CONC 34.2 g/dl (32-36); MEAN PLATELET VOLUME 10.6 fL (7.4-10.4); PLATELET COUNT 289 K/uL (130-400)
[2017-04-03 07:27] LABS: PARTIAL THROMBOPLASTIN RATIO 2.3
[2017-04-03] MEDS: INSULIN ASPART 100 UNITS/ML 3 ML PEN SC SCH ×4 (07:34→20:01)
[2017-04-03 07:36] LABS: ESTIMATED AVERAGE GLUCOSE 140 mg/dl; HA1C FLAG Normal (Normal)
[2017-04-03] MEDS: HEPARIN 25,000 UNIT/500ML D5W 500 ML IV PRN (07:36)
[2017-04-03 07:44] LABS: BUN/CREATININE RATIO 18.7 (10-20); CALCIUM 8.6 mg/dl (8.5-10.1); CREATININE 1.3 mg/dl (0.60-1.40); POTASSIUM 3.6 mmol/L (3.5-5.1)
[2017-04-03] MEDS: ROSUVASTATIN CALCIUM 20 MG TAB PO SCH (08:42)
[2017-04-03] MEDS: MULTIVITAMIN TAB PO SCH (08:42)
[2017-04-03] MEDS: CLOPIDOGREL BISULFATE 75 MG TAB PO SCH (08:42)
[2017-04-03] MEDS: LISINOPRIL/HCTZ 20/25MG TAB PO SCH (08:42)
[2017-04-03] MEDS: HYDROXYUREA 500 MG CAP PO SCH ×2 (08:44→19:49)
--- NOTE | 2017-04-03 13:37 | Hospitalist Progress Note ---
Hospitalist Progress Note Date of Service Apr 03, 2017. (Sruthi Villalpando .RAVINDRAC) Subjective Pt evaluation today including: conversation w/ patient, physical exam, chart review, lab review, review of inpatient medication list Pain: None PO Intake: Tolerating PO diet Voiding: no voiding problems The patient reports feeling well. He denies any pain in his left foot/toes. He does report some intermittent tingling in the left 5th toe. He otherwise denies any complaints. The patient denies fevers, chills, sweats, chest pain, palpitations, claudication, cough, wheezing, shortness of breath, nausea, vomiting, abdominal pain, dysuria, hematuria, urinary retention, paralysis, weakness. Additional Comments: See HPI for pertinent positives and negatives. All other systems reviewed and negative. (Sruthi Villalpando PA-C) Objective Vital Signs Date Time Temp Pulse Resp B/P (MAP) Pulse Ox O2 Delivery O2 Flow Rate FiO2 04/03/17 12:04 37.1 70 20 120/53 (75) 93 Nasal Cannula 3.0 04/03/17 07:47 37.6 65 20 131/57 (81) 96 Nasal Cannula 3.0 04/03/17 03:40 36.9 56 16 113/59 (77) 93 Nasal Cannula 3.0 04/03/17 03:40 Humidified Oxygen 3.0 04/03/17 00:51 37.5 67 18 144/64 (90) 95 Nasal Cannula 3.0 04/03/17 00:00 Humidified Oxygen 3.0 04/02/17 20:00 95 Nasal Cannula 3.0 04/02/17 19:44 36.6 71 18 115/60 (78) 94 Nasal Cannula 3.5 Humidified Oxygen 04/02/17 18:00 76 18 131/61 (84) 93 Nasal Cannula 3.0 04/02/17 16:00 95 Nasal Cannula 3.0 04/02/17 16:00 36.3 63 18 107/61 (76) 95 Nasal Cannula 3.0 04/02/17 14:00 68 20 122/60 (80) 92 Nasal Cannula 3.0 (Sruthi Villalpando PA-C) Physical Exam Notes: General appearance: Well-developed, well-nourished, no apparent distress Head: Normocephalic, atraumatic Eyes: Normal inspection, PERRL, EOMI ENT: Normal ENT inspection, hearing grossly normal, pharynx normal Neck: Supple, no JVD, trachea midline Respiratory/Chest: Lungs clear to auscultation, normal breath sounds, no respiratory distress Cardiovascular: +Systolic murmur. Regular rate & rhythm, no gallop, no murmur Abdomen/GI: Normal bowel sounds, non-tender, soft Extremities/Musculoskeletal: 1+ pedal pulses bilaterally. R and L feet both warm to the touch. 5th left toe necrotic, dry gangrene. No calf tenderness, no pedal edema Neurological/Psych: Alert, normal mood/affect, oriented x 3 Skin: Normal color, warm/dry, no rash (Sruthi Villalpando PA-C) Laboratory Results Last 24 Hours Test 04/02/17 15:18 04/02/17 20:29 04/03/17 06:36 04/03/17 06:38 Bedside Glucose 137 mg/dl 190 mg/dl 131 mg/dl White Blood Count 8.82 K/uL Red Blood Count 3.37 M/uL Hemoglobin 11.9 g/dL Hematocrit 34.8 % Mean Corpuscular Volume 103.3 fL Mean Corpuscular Hemoglobin 35.3 pg Mean Corpuscular Hemoglobin Concent 34.2 g/dl RDW Standard Deviation 52.8 fL RDW Coefficient of Variation 14.2 % Platelet Count 289 K/uL Mean Platelet Volume 10.6 fL Activated Partial Thromboplast Time 59.2 SECONDS Partial Thromboplastin Ratio 2.3 Sodium Level 138 mmol/L Potassium Level 3.6 mmol/L Chloride Level 103 mmol/L Carbon Dioxide Level 29 mmol/L Anion Gap 6.0 mmol/L Blood Urea Nitrogen 24 mg/dl Creatinine 1.30 mg/dl Est Creatinine Clear Calc Drug Dose 47.6 ml/min Estimated GFR () 61.0 Estimated GFR (Non- 52.6 BUN/Creatinine Ratio 18.7 Random Glucose 125 mg/dl Estimated Average Glucose 140 mg/dl Hemoglobin A1c 6.5 % Calcium Level 8.6 mg/dl Test 04/03/17 11:37 Bedside Glucose 157 mg/dl (Sruthi Villalpando PA-C) Diagnostic Results Patient Name: JAYYQUIRINO Tadeo Unit Number: [id number] Dictated: 04/02/171851 Transcribed: 04/02/171851 JA Printed Date/Time: [~ rep prt dt]/[~ rep prt tm] [~ rep ct labl] - [~ rep ct ivnm] [facility] [place] [address] Dictated: 04/02/171851 Transcribed: 04/02/171851 Printed Date/Time: [~ rep prt dt]/[~ rep prt tm] [~ rep ct labl] - [~ rep ct ivnm] Patient: QUIRINO HOPE Address1: [address] [place] [address] Rec: [id number] Address2: [place] [address] Acct ID: [id number] [facility] Zip: [place] [address] Date: 1940 Sex: M Room/Bed: E212-1 Ref Phy: Emeterio Hardin M.D. SC: Estrella Att Phy: Tevin Wilkerson MD Report #: [id number] Rosalind Phy: Emeterio Hardin M.D. Test: FT Admit Phy: Maximiliano Hernandez D.O. Tooling Inspector: GURINDER Interpreting Phy: Andi Oliver MD Diagnosis: PERIPHERAL ARTERY DISEASE Ordering Phy: Go Molina M.D. Service Date: 04/02/17 Admit Date: 03/31/1708/22/17 MNE: [id number] CONF: DICTATED BY: Andi Oliver MD]] CC: Go Molina M.D. Siuta, Jonathan R., MD Solic, John, M.D. Endcc: [~ rep ct add3]] LEFT FOOT MIN 3 VIEWS ROUTINE CLINICAL HISTORY: Preoperative amputation. COMPARISON: None FINDINGS: Tarsometatarsal joints are intact. Evaluation of the toes is difficult given chronic deformity with hammertoe deformity of the second through fifth toes. However, no fracture or osteolysis is identified on this examination. There is extensive vascular calcification. Mild plantar calcaneal spurring is noted. Mild osteoarthritis is noted within multiple articulations of the left foot. IMPRESSION: 1. No acute fracture or radiographic evidence of osteomyelitis although evaluation of the toes is difficult given hammertoe deformities. 2. Mild hallux valgus and mild arthritis within several articulations of the left foot. Electronically signed by: Andi Oliver M.D. 04/02/2017 7:09 PM Dictated Date/Time: 04/02/2017 6:52 PM The status of this report is Signed. Draft = Not yet reviewed or approved by Radiologist. Signed = Reviewed and approved by Radiologist. <AttendingPhy>Tevin Wilkerson MD</AttendingPhy> <FamilyPhy>Emeterio Hardin M.D.</ FamilyPhy> <PrimaryPhy>Emeterio Hardin M.D.</PrimaryPhy> <UnitNumber>[id number]</ UnitNumber> <VisitNumber>[id number]</VisitNumber> <PatientName>QUIRINO HOPE </PatientName> <DateOfBirth>1940</DateOfBirth> <Location>C.2[facility]</Location> < ServiceDate>03/31/17</ServiceDate> <MNE>ESINDI</MNE> <OrderingPhy>Go Molina M.D.</OrderingPhy> <OrderingPhyMNE>f rep ord dr arellano</OrderingPhyMNE> < DictatingPhyMNE>f rep dict dr arellano</DictatingPhyMNE> <CCListMNE>f rep ct eileen</ CCListMNE> <AdmittingPhyMNE>f pt admit dr arellano</AdmittingPhyMNE> <AttendingPhyMNE >f pt attend dr arellano</AttendingPhyMNE> <ConsultingPhyMNE>f pt consult dr arellano</ConsultingPhyMNE> <FamilyPhyMNE>f pt fam dr arellano</FamilyPhyMNE> <OtherPhyMNE>f pt other dr arellano</OtherPhyMNE> < PrimaryPhyMNE>f pt prim care dr arellano</PrimaryPhyMNE> <ReferringPhyMNE>f pt referring dr arellano</ReferringPhyMNE> (Sruthi Villalpando ., ALICIA) Assessment and Plan 76 y/o with a history of PAD, DM II, HTN, HLD, and RA who had recently had peripheral angiography with stent placement and presented with progressive coldness in the LLE. 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 Pt stable, no acute events overnight. Transfer to tele 04/02. Pt developed a quick run of SVT/ST with HR up to 150s around 06:30 which lasted about 1 minute. Otherwise in SR with HR in 60s. -Cardiology consulted, appreciate recs: continue heparin drip, will transition to Coumadin for terminal manager anticoagulation after toe amputation. Continue DAPT, consider switching to ticagrelor on discharge -Continue heparin drip -Continue Crestor 20 mg PO qd -Continue ASA/Plavix Dry gangrene left 5th toe -Consult orthopedics for amputation, appreciate recs: tentative amputation Friday with Dr. Dumont -Foot x-ray without fractures or osteomyelitis DM II--last HgbA1c checked on 12/24/16 was 6.6 -Continue Lantus 10 units SC qhs -Insulin sliding scale -Check BSGs q ac and qhs -HgbA1c 6.5 on 04/03 HTN--stable -Continue lisinopril/HCTZ 20/25 mg PO qd HLD -Crestor as above RA--stable -Continue Prednisone 3 mg PO qpm Polycythemia vera--stable -Continue hydroxyurea 500 mg PO BID Macrocytic anemia -Hgb stable -Folate WNL. B12 WNL DVT prophylaxis -Heparin drip Code Status -Level I, FULL RESUSCITATION STATUS (Sruthi Villalpando ., PADamarisC) Attending Attestation: Pt seen/examined, chart reviewed, and care plan d/w SONNY Villalpando. I agree w/ the gaston components of her documentation. During my visit the patient's daughter was at bedside. They were unsure about plan of care. I reviewed such with them - tentative plan for OR tomorrow for left 5th toe amputation. He denied any complaints during my visit - no cp, sob, abd pain. 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 Top platelet count was about 775. Has been 200-300 since on hydroxyurea. VSS no fever gen - nad neck - no JVD heart - RRR lungs - CTA b/l abd - soft ext - pulses left foot about 1+, maybe slightly better; left foot warm; toes 1- 4 with excellent perfusion; left 5th toe necrotic, black, and dry gangrene; no odor or drainage right foot pulses about 1+, cap refill bilaterally < 2 sec A/P: 1. PAD of left leg with occlusion of recently placed stents, s/p a-gram with placement of new stent, atherectomy, angioplasty, etc. continue aggressive Rx including heparin drip, antiplatelet agents, statin, etc. 2. left 5th toe dry gangrene - appears nonviable even despite hinduism of good blow flow - ortho consulted, Dr. Dumont to amputate tomorrow 3. PVC - controlled with hydroxyurea spoke with heme/onc by phone today - they stated that the PCV would not pose a thrombotic risk to the patient since it is well-controlled (H/H stable, platelets stable) in light of #1 they recommended checking for lupus anticoagulant & antiphospholipid abx's they felt coumadin was a good choice for anticoagulation following this admission NPO after midnight labs in am Jose Antonio WILKERSON MD (Tevin Wilkerson MD)
--- NOTE | 2017-04-03 18:44 | Cardiology Follow-Up ---
Subjective Subjective Date of Service: Apr 03, 2017. Pt evaluation today including: conversation w/ patient, conversation w/ family , physical exam, chart review, lab review, review of studies Additional Details: Feeling well this AM. No significant foot pain. Tele reviewed - brief episodes of SVT overnight Problem List Medical Problems: (1) Arterial occlusion, lower extremity Status: Acute (2) Tick bite of hip Status: Acute Review of Systems Constitutional: No fever Respiratory: No cough, No shortness of breath Cardiac: No chest pain Abdomen: No pain Musculoskeletal: + swelling Heme: No abnormal bleeding/bruising Endo: No fatigue Objective Vital Signs Last Vital Signs Documentation Date Time Temp Pulse Resp B/P (MAP) Pulse Ox O2 Delivery O2 Flow Rate FiO2 04/03/17 16:00 95 Nasal Cannula 3.0 Humidified Oxygen 04/03/17 15:58 36.8 63 18 132/59 (83) Physical Exam: General Appearance: no apparent distress ENT: pharynx normal Neck: no JVD Respiratory/Chest: lungs clear, no respiratory distress, no accessory muscle use, + crackles (few at bases bilaterally) Cardiovascular: regular rate, rhythm, no gallop, + systolic murmur (RUSB, 2/) , + pertinent finding (palpable left DP pulse. diminshed capillary refill in 1- 4 LLE digits) Abdomen: normal bowel sounds, non tender, soft Extremities: no pedal edema, + pertinent finding (palpable DP pulse. Improved cap refill, color of digits 1-4. Necrotic 5th toe unchanged.) Neurologic/Psychiatric: alert, oriented x 3 Skin: + pertinent finding (right groin access site - no ecchymosis/hematoma. intact pulse) Lymphatic: no adenopathy Assessment and Plan 1. Acute limb ischemia - post mechanical thrombectomy repeat SFA stenting, and CRUSHER of TPT/AT 2. Severe PAD with CLI s/p prior SFA/Pop stenting 03/26/17 and necrotic LLE 5th digit 3. DM2 -- on insulin 4. PCV -- plts/hemoglobin stable on hydroxyurea; prior DVT in setting of total hip on prophylactic xarelto 5. ?RA -- on prednisone 6. HTN -- reasonably controlled 7. HLD -- on high-intensity statin 8. Paroxysmal SVT -- asymptomatic Patient POD2 s/p successful endovascular intervention for SFA/Popliteal acute stent thrombosis No recurrent LLE pain. Improved distal perfusion today. 5th digit necrotic. From a vascular standpoint feel distal perfusion adequate for wound healing post amputation -- Possible 5th toe amputation tomorrow -- Continue heparin infusion for now --> long-term will plan to transition to coumadin in the setting of prior DVT on prophylactic dose xarelto -- Continue ASA/Plavix --> possible switch to ticagrelor on discharge -- continue antihypertensives/high-intensity statin -- if increased paroxysmal SVT or symptoms will add beta-braxton Continued [facility] stay due to: multiple IV medications needed Discharge planning: uncertain Medications: Current Inpatient Medications Medications (Trade) Dose Ordered Sig/Dillon Route Start Time Stop Time Status Last Admin Dose Admin Heparin Sodium/ Dextrose 500 ml @ 26 mls/hr [id number] PRN IV 03/31/17 15:00 04/30/17 14:59 Future hold 04/03/17 07:36 26 MLS/HR Ondansetron HCl (Zofran Inj) 4 mg Q6H PRN IV 03/31/17 15:45 04/30/17 15:44 Aspirin (Ecotrin Tab) 81 mg QPM PO 03/31/17 21:00 04/30/17 20:59 04/02/17 20:40 81 MG Clopidogrel Bisulfate (plAVix TAB) 75 mg DAILY PO 04/01/17 09:00 05/01/17 08:59 04/03/17 08:42 75 MG HCTZ/Lisinopril (Prinzide 20-25MG Tab) 1 tab QAM PO 04/01/17 09:00 05/01/17 08:59 04/03/17 08:42 1 TAB Multivitamins (Multivitamin Tab) 1 tab QAM PO 04/01/17 09:00 05/01/17 08:59 04/03/17 08:42 1 TAB Prednisone (PredniSONE TAB) 3 mg QPM PO 03/31/17 21:00 04/30/17 20:59 04/02/17 20:40 3 MG Hydroxyurea (Hydrea Cap) 500 mg BID PO 03/31/17 21:00 04/30/17 20:59 04/03/17 08:44 500 MG Rosuvastatin Calcium (Crestor Tab) 20 mg QAM PO 04/01/17 09:00 05/01/17 08:59 04/03/17 08:42 20 MG Miscellaneous (Iv Fluids Completed) 1 ea PRN PRN N/A 03/31/17 16:15 03/31/18 16:14 Glucose (Glucose 40% Gel) 15-30 GRAMS 15 GRAMS... UD PRN PO 03/31/17 20:30 04/30/17 20:29 Glucose (Glucose Chew Tab) 4-8 Tablets 4 Tabl... UD PRN PO 03/31/17 20:30 04/30/17 20:29 Dextrose (Dextrose 50% 50ML Syringe) 25-50ML OF 50% DW IV FOR... UD PRN IV 03/31/17 20:30 04/30/17 20:29 Glucagon (Glucagon Inj) 1 mg UD PRN SQ 03/31/17 20:30 04/30/17 20:29 Insulin Glargine (Lantus Solostar Pen) 10 units HS SC 04/01/17 21:00 05/01/17 20:59 04/02/17 20:42 10 UNITS Insulin Aspart (novoLOG ASPART) SLIDING SCALE G... ACHS SC 04/01/17 21:00 05/01/17 20:59 04/02/17 11:23 1 UNITS Acetaminophen (Tylenol Tab) 650 mg Q4H PRN PO 04/02/17 19:15 05/02/17 19:14 Tramadol HCl (Ultram Tab) 50 mg Q4H PRN PO 04/02/17 19:15 05/02/17 19:14 04/02/17 20:41 50 MG Morphine Sulfate (MoRPHine SULFATE INJ) 2 mg Q2H PRN IV 04/02/17 19:15 04/16/17 19:14 Lab Results: 04/03/17 06:36 04/03/17 06:36 Test 04/03/17 06:36 04/03/17 16:07 Red Blood Count 3.37 M/uL (4.7-6.1) Mean Corpuscular Volume 103.3 fL (80-100) Mean Corpuscular Hemoglobin 35.3 pg (25-34) Mean Corpuscular Hemoglobin Concent 34.2 g/dl (32-36) RDW Standard Deviation 52.8 fL (36.4-46.3) RDW Coefficient of Variation 14.2 % (11.5-14.5) Mean Platelet Volume 10.6 fL (7.4-10.4) Activated Partial Thromboplast Time 59.2 SECONDS (21.0-31.0) Partial Thromboplastin Ratio 2.3 Anion Gap 6.0 mmol/L (3-11) Est Creatinine Clear Calc Drug Dose 47.6 ml/min Estimated GFR () 61.0 Estimated GFR (Non- 52.6 BUN/Creatinine Ratio 18.7 (10-20) Estimated Average Glucose 140 mg/dl Hemoglobin A1c 6.5 % (4.5-5.6) Calcium Level 8.6 mg/dl (8.5-10.1) Bedside Glucose 157 mg/dl (70-99)
[2017-04-03] MEDS: ASPIRIN 81 MG ECTAB PO SCH (19:48)
[2017-04-03] MEDS: INSULIN GLARGINE SOLOSTAR 100 UNITS/ML 3 ML PEN SC SCH (19:50)
[2017-04-03] MEDS: TRAMADOL HCL 50 MG TAB PO PRN (21:15)
[2017-04-04] VITALS (10 sets, daily range): BP systolic 108–135; BP diastolic 53–91; PULSE 55–88; TEMP 36.3–36.9; O2SAT 92–96
[2017-04-04] MEDS ORDERED: NURSING VERBAL MED ORDER ONE ×3 (01:30→22:00)
[2017-04-04] MEDS: HEPARIN 25,000 UNIT/500ML D5W 500 ML IV PRN (01:33)
[2017-04-04] MEDS: INSULIN ASPART 100 UNITS/ML 3 ML PEN SC SCH ×3 (06:00→18:00)
[2017-04-04 07:14] LABS: HEMATOCRIT 34.1 % (42-52); MEAN CELL VOLUME 101.8 fL (80-100); MEAN CORPUSCULAR HEMOGLOBIN 36.4 pg (25-34); MEAN CORPUSCULAR HGB CONC 35.8 g/dl (32-36); MEAN PLATELET VOLUME 10.2 fL (7.4-10.4); PLATELET COUNT 257 K/uL (130-400); RED BLOOD COUNT 3.35 M/uL (4.7-6.1); WHITE BLOOD COUNT 8.72 K/uL (4.8-10.8)
[2017-04-04 07:40] LABS: PARTIAL THROMBOPLASTIN RATIO 2.2
[2017-04-04 07:45] LABS: BUN/CREATININE RATIO 18.8 (10-20); CALCIUM 8.4 mg/dl (8.5-10.1); CREATININE 1.2 mg/dl (0.60-1.40); POTASSIUM 3.6 mmol/L (3.5-5.1)
[2017-04-04] MEDS: ROSUVASTATIN CALCIUM 20 MG TAB PO SCH (08:01)
[2017-04-04] MEDS: LISINOPRIL/HCTZ 20/25MG TAB PO SCH (08:01)
[2017-04-04] MEDS: HYDROXYUREA 500 MG CAP PO SCH ×2 (08:01→22:43)
[2017-04-04] MEDS: MULTIVITAMIN TAB PO SCH (08:01)
[2017-04-04] MEDS: CLOPIDOGREL BISULFATE 75 MG TAB PO SCH (08:26)
--- NOTE | 2017-04-04 12:24 | Hospitalist Progress Note ---
Hospitalist Progress Note Date of Service Apr 04, 2017. (Sruthi Villalpando .ALICIA) Subjective Pt evaluation today including: conversation w/ patient, conversation w/ family ( at bedside), physical exam, chart review, lab review, review of inpatient medication list Pain: None PO Intake: NPO Voiding: no voiding problems Patient reports feeling well. He continues to deny any pain in his left foot. He has intermittent tingling in the left toes. He is being kept NPO for toe amputation today. The patient denies fevers, chills, sweats, chest pain, palpitations, claudication, cough, wheezing, shortness of breath, nausea, vomiting, abdominal pain, dysuria, hematuria, urinary retention, paralysis, weakness. Additional Comments: See HPI for pertinent positives and negatives. All other systems reviewed and negative. (Sruthi Villalpando ., RAVINDRAC) Objective Vital Signs Date Time Temp Pulse Resp B/P (MAP) Pulse Ox O2 Delivery O2 Flow Rate FiO2 04/04/17 07:51 36.9 55 20 121/58 (79) 95 Nasal Cannula 3.0 04/04/17 04:00 Nasal Cannula 3.0 04/04/17 04:00 36.7 62 18 127/63 (84) 94 Nasal Cannula 3.0 04/04/17 00:22 Nasal Cannula 3.0 04/04/17 00:00 36.7 63 18 133/66 (88) 94 Nasal Cannula 3.0 04/03/17 20:00 96 Nasal Cannula 3.0 Humidified Oxygen 04/03/17 19:30 37.3 71 18 130/62 (84) 92 Nasal Cannula 3.0 Humidified Oxygen 04/03/17 16:00 95 Nasal Cannula 3.0 Humidified Oxygen 04/03/17 15:58 36.8 63 18 132/59 (83) 95 Nasal Cannula 3.0 Humidified Oxygen (Sruthi Villalpando PA-C) Physical Exam Notes: General appearance: Well-developed, well-nourished, no apparent distress Head: Normocephalic, atraumatic Eyes: Normal inspection, PERRL, EOMI ENT: Normal ENT inspection, hearing grossly normal, pharynx normal Neck: Supple, no JVD, trachea midline Respiratory/Chest: Lungs clear to auscultation, normal breath sounds, no respiratory distress Cardiovascular: +Systolic murmur. Regular rate & rhythm, no gallop, no murmur Abdomen/GI: Normal bowel sounds, non-tender, soft Extremities/Musculoskeletal: 1+ pedal pulses bilaterally. R and L feet both warm to the touch. 5th left toe necrotic, dry gangrene. No calf tenderness, no pedal edema Neurological/Psych: Alert, normal mood/affect, oriented x 3 Skin: Normal color, warm/dry, no rash (Sruthi Villalpando ., PA-C) Laboratory Results Last 24 Hours Test 04/03/17 16:07 04/03/17 19:59 04/04/17 06:04 04/04/17 07:01 Bedside Glucose 157 mg/dl 240 mg/dl 137 mg/dl White Blood Count 8.72 K/uL Red Blood Count 3.35 M/uL Hemoglobin 12.2 g/dL Hematocrit 34.1 % Mean Corpuscular Volume 101.8 fL Mean Corpuscular Hemoglobin 36.4 pg Mean Corpuscular Hemoglobin Concent 35.8 g/dl RDW Standard Deviation 52.0 fL RDW Coefficient of Variation 14.1 % Platelet Count 257 K/uL Mean Platelet Volume 10.2 fL Activated Partial Thromboplast Time 58.1 SECONDS Partial Thromboplastin Ratio 2.2 Sodium Level 137 mmol/L Potassium Level 3.6 mmol/L Chloride Level 101 mmol/L Carbon Dioxide Level 31 mmol/L Anion Gap 5.0 mmol/L Blood Urea Nitrogen 23 mg/dl Creatinine 1.20 mg/dl Est Creatinine Clear Calc Drug Dose 51.6 ml/min Estimated GFR () 67.2 Estimated GFR (Non- 58.0 BUN/Creatinine Ratio 18.8 Random Glucose 123 mg/dl Calcium Level 8.4 mg/dl (Sruthi Villalpando ., PA-C) Assessment and Plan 76 y/o with a history of PAD, DM II, HTN, HLD, and RA who had recently had peripheral angiography with stent placement and presented with progressive coldness in the LLE. PAD s/p thrombectomy of SFA/popliteal, CLOTH PAINTER, stent of SFA--POD #3 -Admit to ICU. Pt stable, no acute events overnight. [facility] 04[facility]. No acute events overnight. Pt in sinus rhythm/sinus bradycardia with HR 50s-60s -Cardiology consulted, appreciate recs: Pt has adequate distal perfusion for healing post amputation. Transition from heparin drip to Coumadin after surgery. Continue DAPT. If increasing paroxysmal SVT or becomes symptomatic, can add beta braxton therapy. -Heparin drip stopped this am for surgery -Continue Crestor 20 mg PO qd -Continue ASA/Plavix Dry gangrene left 5th toe -Consult orthopedics for amputation, appreciate recs: amputation Friday with Dr. Dumont -Foot x-ray without fractures or osteomyelitis -Scheduled for amputation this afternoon DM II--last HgbA1c checked on 12/24/16 was 6.6 -Continue Lantus 10 units SC qhs -Insulin sliding scale -Check BSGs q ac and qhs -HgbA1c 6.5 on 04/03 HTN--stable -Continue lisinopril/HCTZ 20/25 mg PO qd HLD -Crestor as above RA--stable -Continue Prednisone 3 mg PO qpm Polycythemia vera--stable -Continue hydroxyurea 500 mg PO BID Macrocytic anemia -Hgb stable -Folate WNL. B12 WNL DVT prophylaxis -Hold for surgery Code Status -Level I, FULL RESUSCITATION STATUS (Sruthi Villalpando ., PA-C) Attending Attestation: Pt seen/examined, chart reviewed, and care plan d/w SONNY Villalpando. I agree w/ the gaston components of her documentation. no issues overnight tele stable no chest pain, foot pain, or dyspnea VSS no fever gen - nad neck - no JVD heart - RRR lungs - CTA b/l abd - soft ext - pulses left foot about 1-2+, left foot warm; toes 1-4 with excellent perfusion; left 5th toe necrotic, black, and dry gangrene; no odor or drainage right foot pulses about 1+ A/P: 1. PAD of left leg with occlusion of recently placed stents, s/p a-gram with placement of new stent, atherectomy, angioplasty, etc. continue aggressive Rx including statin, antiplatelet agents; after his toe amputation plan is for starting coumadin +/- heparin bridge 2. left 5th toe dry gangrene - appears nonviable even despite sikhism of good blow flow - ortho consulted, Dr. Dumont to amputate today; NPO for surgery ; heparin drip on hold 3. PCV- controlled with hydroxyurea spoke with heme/onc this admission - they stated that the PCV would not pose a thrombotic risk to the patient since it is well-controlled (H/H stable, platelets stable) in light of #1 they recommended checking for lupus anticoagulant & antiphospholipid abx's they felt coumadin was a good choice for anticoagulation following this admission antiphospholipid ab's are pending labs stable again today Jose Antonio WILKERSON MD (Tevin Wilkerson MD)
--- NOTE | 2017-04-04 16:48 | Cardiology Follow-Up ---
Subjective Subjective Date of Service: Apr 04, 2017. Pt evaluation today including: conversation w/ patient, conversation w/ family , physical exam, chart review, lab review, review of studies, review of inpatient medication list Additional Details: Feeling well. Mild tingling at LLE 5th digit. No pain. No other new symptoms. tele reviewed -- no significant events. Problem List Medical Problems: (1) Arterial occlusion, lower extremity Status: Acute (2) Tick bite of hip Status: Acute Review of Systems Constitutional: No fever Respiratory: No cough, No shortness of breath Cardiac: No chest pain Abdomen: No pain Musculoskeletal: + swelling Heme: No abnormal bleeding/bruising Endo: No fatigue Objective Vital Signs Last Vital Signs Documentation Date Time Temp Pulse Resp B/P (MAP) Pulse Ox O2 Delivery O2 Flow Rate FiO2 04/04/17 12:26 36.8 63 18 108/56 (73) 92 Nasal Cannula 1.0 Physical Exam: General Appearance: no apparent distress ENT: pharynx normal Neck: no JVD Respiratory/Chest: lungs clear, no respiratory distress, no accessory muscle use Cardiovascular: regular rate, rhythm, no gallop, + systolic murmur (RUSB, 2/6) , + pertinent finding Abdomen: normal bowel sounds, non tender, soft Extremities: no pedal edema, + pertinent finding (palpable DP pulse. Improved cap refill, color of digits 1-4. Necrotic 5th toe unchanged.) Neurologic/Psychiatric: alert, oriented x 3 Lymphatic: no adenopathy Assessment and Plan 1. Acute limb ischemia - post mechanical thrombectomy repeat SFA stenting, and ADMISSIONS MANAGER of TPT/AT 2. Severe PAD with CLI s/p prior SFA/Pop stenting 03/26/17 and necrotic LLE 5th digit 3. DM2 -- on insulin 4. PCV -- plts/hemoglobin stable on hydroxyurea; prior DVT in setting of total hip on prophylactic xarelto 5. ?RA -- on prednisone 6. HTN -- reasonably controlled 7. HLD -- on high-intensity statin 8. Paroxysmal SVT -- asymptomatic, brief episodes Patient POD3 s/p successful endovascular intervention for SFA/Popliteal acute stent thrombosis No recurrent LLE pain. Improved distal perfusion today. 5th digit necrotic - awaiting amputation. -- Continue heparin infusion for now --> long-term will plan to transition to coumadin. Ok with lovenox bridge to coumadin if possible -- Continue ASA/Plavix. Will plan to continue Coumadin/ASA/Plavix for next month with likely transition to coumadin/plavix alone at that time. -- continue antihypertensives/high-intensity statin From a cardiovascular standpoint OK for discharge to home when can go home on therapeutic anticoagulation, safe from surgical standpoint. Continued [facility] stay due to: multiple IV medications needed Discharge planning: uncertain Medications: Current Inpatient Medications Medications (Trade) Dose Ordered Sig/Dillon Route Start Time Stop Time Status Last Admin Dose Admin Ondansetron HCl (Zofran Inj) 4 mg Q6H PRN IV 03/31/17 15:45 04/30/17 15:44 Aspirin (Ecotrin Tab) 81 mg QPM PO 03/31/17 21:00 04/30/17 20:59 04/03/17 19:48 81 MG Clopidogrel Bisulfate (plAVix TAB) 75 mg DAILY PO 04/01/17 09:00 05/01/17 08:59 04/04/17 08:26 75 MG HCTZ/Lisinopril (Prinzide 20-25MG Tab) 1 tab QAM PO 04/01/17 09:00 05/01/17 08:59 04/04/17 08:01 1 TAB Multivitamins (Multivitamin Tab) 1 tab QAM PO 04/01/17 09:00 05/01/17 08:59 04/04/17 08:01 1 TAB Prednisone (PredniSONE TAB) 3 mg QPM PO 03/31/17 21:00 04/30/17 20:59 04/03/17 19:48 3 MG Hydroxyurea (Hydrea Cap) 500 mg BID PO 03/31/17 21:00 04/30/17 20:59 04/04/17 08:01 500 MG Rosuvastatin Calcium (Crestor Tab) 20 mg QAM PO 04/01/17 09:00 05/01/17 08:59 04/04/17 08:01 20 MG Miscellaneous (Iv Fluids Completed) 1 ea PRN PRN N/A 03/31/17 16:15 03/31/18 16:14 Glucose (Glucose 40% Gel) 15-30 GRAMS 15 GRAMS... UD PRN PO 03/31/17 20:30 04/30/17 20:29 Glucose (Glucose Chew Tab) 4-8 Tablets 4 Tabl... UD PRN PO 03/31/17 20:30 04/30/17 20:29 Dextrose (Dextrose 50% 50ML Syringe) 25-50ML OF 50% DW IV FOR... UD PRN IV 03/31/17 20:30 04/30/17 20:29 Glucagon (Glucagon Inj) 1 mg UD PRN SQ 03/31/17 20:30 04/30/17 20:29 Insulin Glargine (Lantus Solostar Pen) 10 units HS SC 04/01/17 21:00 05/01/17 20:59 04/03/17 19:50 10 UNITS Acetaminophen (Tylenol Tab) 650 mg Q4H PRN PO 04/02/17 19:15 05/02/17 19:14 Tramadol HCl (Ultram Tab) 50 mg Q4H PRN PO 04/02/17 19:15 05/02/17 19:14 04/03/17 21:15 50 MG Morphine Sulfate (MoRPHine SULFATE INJ) 2 mg Q2H PRN IV 04/02/17 19:15 04/16/17 19:14 Insulin Aspart (novoLOG ASPART) SLIDING SCALE G... Q6 SC 04/04/17 06:00 05/04/17 05:59 Lab Results: 04/04/17 07:01 04/04/17 07:01 Test 04/04/17 07:01 04/04/17 12:29 Red Blood Count 3.35 M/uL (4.7-6.1) Mean Corpuscular Volume 101.8 fL (80-100) Mean Corpuscular Hemoglobin 36.4 pg (25-34) Mean Corpuscular Hemoglobin Concent 35.8 g/dl (32-36) RDW Standard Deviation 52.0 fL (36.4-46.3) RDW Coefficient of Variation 14.1 % (11.5-14.5) Mean Platelet Volume 10.2 fL (7.4-10.4) Activated Partial Thromboplast Time 58.1 SECONDS (21.0-31.0) Partial Thromboplastin Ratio 2.2 Anion Gap 5.0 mmol/L (3-11) Est Creatinine Clear Calc Drug Dose 51.6 ml/min Estimated GFR () 67.2 Estimated GFR (Non- 58.0 BUN/Creatinine Ratio 18.8 (10-20) Calcium Level 8.4 mg/dl (8.5-10.1) Bedside Glucose 115 mg/dl (70-99)
--- NOTE | 2017-04-04 17:59 | Orthopedic Progress Note ---
Orthopedic Progress Note Date of Service Apr 04, 2017. Subjective Denies: chest pain, SOB, nausea / vomiting, light headedness Additional Notes: Necrotic fifth toe. Objective calves soft nontender Necrotic left 5th toe. Dry gangrene 5th toe left foot. Foot warm. Pedal pulses minimally palpable Date Time Temp Pulse Resp B/P (MAP) Pulse Ox O2 Delivery O2 Flow Rate FiO2 04/04/17 16:20 36.8 67 20 135/91 (106) 93 Nasal Cannula 2.0 04/04/17 16:00 Nasal Cannula 2.0 04/04/17 12:26 36.8 63 18 108/56 (73) 92 Nasal Cannula 1.0 04/04/17 12:00 Nasal Cannula 1.0 04/04/17 11:05 36.3 57 20 115/53 (73) 92 Nasal Cannula 1.0 04/04/17 08:00 Nasal Cannula 3.0 04/04/17 07:51 36.9 55 20 121/58 (79) 95 Nasal Cannula 3.0 04/04/17 04:00 Nasal Cannula 3.0 04/04/17 04:00 36.7 62 18 127/63 (84) 94 Nasal Cannula 3.0 04/04/17 00:22 Nasal Cannula 3.0 04/04/17 00:00 36.7 63 18 133/66 (88) 94 Nasal Cannula 3.0 04/03/17 20:00 96 Nasal Cannula 3.0 Humidified Oxygen 04/03/17 19:30 37.3 71 18 130/62 (84) 92 Nasal Cannula 3.0 Humidified Oxygen Laboratory Results 24 Hours: Test 04/04/17 07:01 Hematocrit 34.1 % Hemoglobin 12.2 g/dL Assessment & Plan Assessment: Gangrene left 5th toe; PVD Plan: To OR for amputation 5th toe NPO Hold Heparin.
[2017-04-04] MEDS ORDERED: PROPOFOL IV EMULSION 10 MG/ML 20 ML VIAL IV ONE (20:09)
[2017-04-04] MEDS ORDERED: LIDOCAINE HCL 2% 2 ML VIAL (20MG/ML) ONE ×3 (20:13→20:33)
[2017-04-04] MEDS ORDERED: MIDAZOLAM HCL 1 MG/ML 2ML VIAL ONE (20:32)
[2017-04-04] MEDS ORDERED: FENTANYL CITRATE INJ 50 MCG/1 ML 2 ML VIAL ONE (20:32)
[2017-04-04] MEDS ORDERED: BUPIVACAINE 0.5 % 5 MG/1 ML MPF 30ML VIAL ONE (20:58)
[2017-04-04] MEDS ORDERED: CEFAZOLIN SOD 1 GM VIAL ONE (20:59)
[2017-04-04] MEDS ORDERED: EpHEDrine SULFATE INJ 50 MG/ML AMP ONE (21:10)
--- NOTE | 2017-04-04 21:29 | [facility] Post Operative Brief Note ---
Immediate Operative Summary Operative Date Apr 04, 2017. Pre-Operative Diagnosis Dry Gangrene left 5th toe Post-Operative Diagnosis same Procedure(s) Performed Amputation left 5th toe Surgeon Tim Qual Field Manager Surgeon(s) None Estimated Blood Loss 1ml Findings See dict Fluids (cc crystalloids) 360 Specimens left 5th toe Drains 1/4" iodoform Anesthesia Local w/ sedation Complication(s) None Disposition Recovery Room / PACU
[2017-04-04] MEDS ORDERED: ATROPINE SULFATE 0.1 MG/ML 5ML SYR IV PRN (21:30)
[2017-04-04] MEDS ORDERED: ONDANSETRON INJ 2 MG/ML 2 ML VIAL IV PRN (21:30)
[2017-04-04] MEDS ORDERED: EpHEDrine SULFATE INJ 50 MG/ML AMP IV PRN (21:30)
[2017-04-04] MEDS ORDERED: FENTANYL CITRATE INJ 50 MCG/1 ML 2 ML VIAL IV PRN (21:30)
--- NOTE | 2017-04-04 21:41 | Anesthesiology Progress Note ---
Anesthesia Post Op Note Date & Time Apr 04, 2017 at 21:41 Vital Signs Pain Intensity: 0 Vital Signs Past 12 Hours Date Time Temp Pulse Resp B/P (MAP) Pulse Ox O2 Delivery O2 Flow Rate FiO2 04/04/17 21:35 36.2 87 16 91/50 95 Nasal Cannula 4 04/04/17 21:25 36.2 70 16 98/50 95 Nasal Cannula 4 04/04/17 20:12 36.4 69 16 115/60 (78) 95 Nasal Cannula 2 04/04/17 19:55 36.9 71 18 125/64 (84) 92 Nasal Cannula 2.0 04/04/17 16:20 36.8 67 20 135/91 (106) 93 Nasal Cannula 2.0 04/04/17 16:00 Nasal Cannula 2.0 04/04/17 12:26 36.8 63 18 108/56 (73) 92 Nasal Cannula 1.0 04/04/17 12:00 Nasal Cannula 1.0 04/04/17 11:05 36.3 57 20 115/53 (73) 92 Nasal Cannula 1.0 Notes Mental Status: alert / awake / arousable, participated in evaluation Pt Amnestic to Procedure: Yes Nausea / Vomiting: adequately controlled Pain: adequately controlled Airway Patency, RR, SpO2: stable & adequate BP & HR: stable & adequate Hydration State: stable & adequate Anesthetic Complications: no major complications apparent
[2017-04-04] MEDS: ASPIRIN 81 MG ECTAB PO SCH (22:44)
[2017-04-04] MEDS: INSULIN GLARGINE SOLOSTAR 100 UNITS/ML 3 ML PEN SC SCH (22:44)
--- NOTE | 2017-04-04 23:18 | OPERATIVE REPORT ---
DATE OF OPERATION: 04/04/2017 PREOPERATIVE DIAGNOSES: 1. Left fifth toe dry gangrene. 2. Necrosis of the fifth toe. 3. Peripheral vascular disease. POSTOPERATIVE DIAGNOSIS: Same. PROCEDURE: Amputation, left fifth toe. SURGEON: Dr. Dumont. UNIFORM DESIGNER: None. ANESTHESIA: Local with sedation. SPECIMENS: Left fifth toe. DRAINS: Quarter inch iodoform gauze x1. COMPLICATIONS: None. BLOOD LOSS: Less than 1 mL PERTINENT HISTORY: This is a 76-year-old gentleman with advanced peripheral vascular disease, diabetes mellitus and other complicating comorbidities. The patient had developed spontaneous erythema, dark redness of his left fifth toe. The toe began to turn dark all the way to the base of the fifth toe. The patient presented to the Emergency Department and was placed on IV antibiotics and the toe was then continued to necrose and the tip of the toe then became completely blackened, hardened and then dry gangrene set forth and the patient was then scheduled for amputation of left fifth toe as indicated. All potential risks, benefits, complications, alternatives, rehab, potential for incomplete relief of symptoms, need for further surgery, DVT, PE, , persistent pain, swelling, scarring, weakness were discussed with the patient. Also, discussed possible need for amputation of other toes on the same foot or on the opposite foot, as dictated by the course of his disease. The patient understands all these risks and decided to proceed with the procedure as indicated. PROCEDURE: The patient was taken to the operative suite, placed supine on the operating room table. After review of the consent and identification of proper operative site, the patient was sedated. Next, the left foot was then sterilely prepped with Betadine and then a digital block was then performed with approximately 10 mL of 0.5% Marcaine plain to the left fifth toe. After this was completed, the left foot was then sterilely prepped and draped in usual fashion, elevated and partially exsanguinated from the mid foot proximally with an Esmarch bandage and an Esmarch tourniquet was applied over sterile surgical towel. Next, a 15 blade scalpel was used to make a racket type incision beginning at the base of the fifth toe, left foot, extending circumferentially around the toe. The extensor was then sharply incised with a 15 blade scalpel revealing the dorsal aspect of the fifth metatarsophalangeal joint. The collateral ligaments were sacrificed well as the plantar plate. Residuals connective tissue was then resected and the necrotic dry gangrenous toe was then passed off as specimen for pathology. Next, the surrounding necrotic aspect of the toe and joint capsule was then sharply excised. The wound was then copiously irrigated with sterile normal saline. A 1/4 inch iodoform gauze was then placed in the wound for trochanter to allow persistent drainage if necessary. There was no abscess noted. No other necrotic features to suggest any further compromise of the lateral aspect of the foot. The tissue appeared viable and tissue flap was then closed using interrupted 4-0 nylon sutures, a combination of horizontal mattress and simple sutures. A sterile lightly compressive dressing was applied over the left lateral aspect of the foot, overwrapped with an Eric wrap. The tourniquet was released. The patient was awakened and taken to recovery in stable condition. I attest to the content of the Intraoperative Record and any orders documented therein. Any exception s are noted below.
[2017-04-05] MEDS: TRAMADOL HCL 50 MG TAB PO PRN ×2 (00:05→21:12)
[2017-04-05 00:15] VITALS: BP 126/54; PULSE 84; TEMP 36.6; O2SAT 92
[2017-04-05 04:31] VITALS: BP 132/61; PULSE 61; TEMP 36.5; O2SAT 97
[2017-04-05 06:18] LABS: HEMATOCRIT 34.1 % (42-52); MEAN CELL VOLUME 102.4 fL (80-100); MEAN CORPUSCULAR HEMOGLOBIN 35.4 pg (25-34); MEAN CORPUSCULAR HGB CONC 34.6 g/dl (32-36); MEAN PLATELET VOLUME 10.3 fL (7.4-10.4); PLATELET COUNT 289 K/uL (130-400); RED BLOOD COUNT 3.33 M/uL (4.7-6.1)
[2017-04-05 06:28] LABS: PARTIAL THROMBOPLASTIN RATIO 1.1
[2017-04-05 06:53] LABS: CALCIUM 8.3 mg/dl (8.5-10.1); CREATININE 1.2 mg/dl (0.60-1.40); MAGNESIUM 2.3 mg/dl (1.8-2.4); POTASSIUM 3.7 mmol/L (3.5-5.1)
[2017-04-05 08:13] VITALS: BP 98/59; PULSE 59; TEMP 36.5; O2SAT 94
[2017-04-05] MEDS: ROSUVASTATIN CALCIUM 20 MG TAB PO SCH (08:21)
[2017-04-05] MEDS: CLOPIDOGREL BISULFATE 75 MG TAB PO SCH (08:21)
[2017-04-05] MEDS: MULTIVITAMIN TAB PO SCH (08:22)
[2017-04-05] MEDS: LISINOPRIL/HCTZ 20/25MG TAB PO SCH (08:22)
[2017-04-05] MEDS: INSULIN ASPART 100 UNITS/ML 3 ML PEN SC SCH ×4 (08:22→21:10)
[2017-04-05] MEDS: HYDROXYUREA 500 MG CAP PO SCH ×2 (08:23→21:09)
--- NOTE | 2017-04-05 10:22 | Cardiology Follow-Up ---
Subjective Subjective Date of Service: Apr 05, 2017. Pt evaluation today including: conversation w/ patient, physical exam, chart review, lab review, review of studies, review of inpatient medication list Additional Details: Feeling well. No significant pain overnight. Tele Reviewed -- no events. Problem List Medical Problems: (1) Arterial occlusion, lower extremity Status: Acute (2) Tick bite of hip Status: Acute Review of Systems Constitutional: No fever Respiratory: No cough, No shortness of breath Cardiac: No chest pain Abdomen: No pain Musculoskeletal: + swelling Heme: No abnormal bleeding/bruising Endo: No fatigue Objective Vital Signs Last Vital Signs Documentation Date Time Temp Pulse Resp B/P (MAP) Pulse Ox O2 Delivery O2 Flow Rate FiO2 04/05/17 08:13 36.5 59 18 98/59 (72) 94 2.0 04/05/17 08:00 Nasal Cannula Physical Exam: General Appearance: no apparent distress ENT: pharynx normal Neck: no JVD Respiratory/Chest: lungs clear, no respiratory distress, no accessory muscle use Cardiovascular: regular rate, rhythm, no gallop, + systolic murmur (RUSB, 2/6) Abdomen: normal bowel sounds, non tender, soft Extremities: no pedal edema, + pertinent finding (Dressing in place over LLE) Neurologic/Psychiatric: alert, oriented x 3 Lymphatic: no adenopathy Assessment and Plan 1. Acute limb ischemia - post mechanical thrombectomy repeat SFA stenting, and SOFTWARE ENGINEER WEB SERVICES of TPT/AT 2. Severe PAD with CLI s/p prior SFA/Pop stenting 03/26/17 3. Necrotic LLE 5th digit - POD1 following amputation 4. DM2 -- on insulin 5. PCV -- plts/hemoglobin stable on hydroxyurea; prior DVT in setting of total hip on prophylactic xarelto 6. ?RA -- on prednisone 7. HTN -- reasonably controlled 8. HLD -- on high-intensity statin 9. Paroxysmal SVT -- asymptomatic, brief episodes Patient POD4 s/p successful endovascular intervention for SFA/Popliteal acute stent thrombosis Post amputation necrotic 5th toe. Pain well controlled -- Plan for discharge on coumadin/ASA/Plavix -- Ok with lovenox bridge -- continue antihypertensives/high-intensity statin From a cardiovascular standpoint OK for discharge to home when safe from surgical standpoint. Continued [facility] stay due to: multiple IV medications needed Discharge planning: uncertain Medications: Current Inpatient Medications Medications (Trade) Dose Ordered Sig/Dillon Route Start Time Stop Time Status Last Admin Dose Admin Ondansetron HCl (Zofran Inj) 4 mg Q6H PRN IV 03/31/17 15:45 04/30/17 15:44 Aspirin (Ecotrin Tab) 81 mg QPM PO 03/31/17 21:00 04/30/17 20:59 04/04/17 22:44 81 MG Clopidogrel Bisulfate (plAVix TAB) 75 mg DAILY PO 04/01/17 09:00 05/01/17 08:59 04/05/17 08:21 75 MG HCTZ/Lisinopril (Prinzide 20-25MG Tab) 1 tab QAM PO 04/01/17 09:00 05/01/17 08:59 04/05/17 08:22 1 TAB Multivitamins (Multivitamin Tab) 1 tab QAM PO 04/01/17 09:00 05/01/17 08:59 04/05/17 08:22 1 TAB Prednisone (PredniSONE TAB) 3 mg QPM PO 03/31/17 21:00 04/30/17 20:59 04/04/17 22:44 3 MG Hydroxyurea (Hydrea Cap) 500 mg BID PO 03/31/17 21:00 04/30/17 20:59 04/05/17 08:23 500 MG Rosuvastatin Calcium (Crestor Tab) 20 mg QAM PO 04/01/17 09:00 05/01/17 08:59 04/05/17 08:21 20 MG Miscellaneous (Iv Fluids Completed) 1 ea PRN PRN N/A 03/31/17 16:15 03/31/18 16:14 Glucose (Glucose 40% Gel) 15-30 GRAMS 15 GRAMS... UD PRN PO 03/31/17 20:30 04/30/17 20:29 Glucose (Glucose Chew Tab) 4-8 Tablets 4 Tabl... UD PRN PO 03/31/17 20:30 04/30/17 20:29 Dextrose (Dextrose 50% 50ML Syringe) 25-50ML OF 50% DW IV FOR... UD PRN IV 03/31/17 20:30 04/30/17 20:29 Glucagon (Glucagon Inj) 1 mg UD PRN SQ 03/31/17 20:30 04/30/17 20:29 Insulin Glargine (Lantus Solostar Pen) 10 units HS SC 04/01/17 21:00 05/01/17 20:59 04/04/17 22:44 10 UNITS Acetaminophen (Tylenol Tab) 650 mg Q4H PRN PO 04/02/17 19:15 05/02/17 19:14 Tramadol HCl (Ultram Tab) 50 mg Q4H PRN PO 04/02/17 19:15 05/02/17 19:14 04/05/17 00:05 50 MG Morphine Sulfate (MoRPHine SULFATE INJ) 2 mg Q2H PRN IV 04/02/17 19:15 04/16/17 19:14 Insulin Aspart (novoLOG ASPART) SLIDING SCALE G... ACHS WI 04/05/17 07:00 05/05/17 06:59 Lab Results: 04/05/17 05:54 04/05/17 05:54 Test 04/05/17 05:54 04/05/17 06:56 Red Blood Count 3.33 M/uL (4.7-6.1) Mean Corpuscular Volume 102.4 fL (80-100) Mean Corpuscular Hemoglobin 35.4 pg (25-34) Mean Corpuscular Hemoglobin Concent 34.6 g/dl (32-36) RDW Standard Deviation 53.2 fL (36.4-46.3) RDW Coefficient of Variation 14.2 % (11.5-14.5) Mean Platelet Volume 10.3 fL (7.4-10.4) Activated Partial Thromboplast Time 29.1 SECONDS (21.0-31.0) Partial Thromboplastin Ratio 1.1 Anion Gap 7.0 mmol/L (3-11) Est Creatinine Clear Calc Drug Dose 51.6 ml/min Estimated GFR () 67.2 Estimated GFR (Non- 58.0 BUN/Creatinine Ratio 21.0 (10-20) Calcium Level 8.3 mg/dl (8.5-10.1) Magnesium Level 2.3 mg/dl (1.8-2.4) Bedside Glucose 138 mg/dl (70-99)
[2017-04-05] MEDS ORDERED: MAGNESIUM HYDROXIDE SUSP 30 ML UDC PO ONE (10:30)
[2017-04-05] MEDS ORDERED: POLYETHYLENE (MIRALAX) 17 GM PACK PO PRN (10:30)
[2017-04-05] MEDS ORDERED: MAGNESIUM HYDROXIDE SUSP 30 ML UDC PO PRN (10:30)
--- NOTE | 2017-04-05 10:30 | PROGRESS NOTE ---
DATE: 04/05/2017 HISTORY OF PRESENT ILLNESS: Mr. 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 He was readmitted on 03/31/2017 with worsening left lower extremity pain, increased fatigue of the leg with ambulation, ongoing claudication, and necrosis of his left fifth toe. He was admitted with an acute limb ischemia. The patient underwent repeat angiography on 04/01/2017 and underwent TPA-assisted mechanical thrombectomy of SFA and popliteal artery of the left lower extremity, INDUSTRIAL MACHINE ASSEMBLER of the SFA and popliteal artery, INDUSTRIAL MACHINE ASSEMBLER of proximal peroneal artery, INDUSTRIAL MACHINE ASSEMBLER of ostial anterior tibial artery, and underwent stent deployment of a Tigris stent in the mid SFA. He subsequently had improved circulation to his left leg, but his left fifth toe remained necrotic. The patient subsequently underwent amputation of the left fifth toe on 04/04/[address] Dumont. The patient is doing better at this time. He has much less left leg pain, and his surgical pain is well controlled. He was able to ambulate to his toilet and back without difficulty today. He is otherwise doing well. He does request something for constipation. MEDICATIONS: 1. NovoLog sliding scale insulin. 2. Tylenol 650 mg p.o. q. 4 hours p.r.n. 3. Ultram 50 mg p.o. q. 4 hours p.r.n. for moderate pain. 4. Morphine sulfate 2 mg IV q. 2 hours p.r.n. 5. Lantus insulin 10 units subcutaneous injection at bedtime. 6. Plavix 75 mg a day. 7. Lisinopril, hydrochlorothiazide 20/25 one tablet each morning. 8. Multivitamin daily. 9. Crestor 20 mg daily. 10. Aspirin 81 mg a day. 11. Prednisone 3 mg daily. 12. Hydroxyurea 500 mg b.i.d. 13. Zofran 4 mg IV q. 6 hours p.r.n. for nausea. ALLERGIES: 1. ATORVASTATIN. 2. CILOSTAZOL. 3. SULFA DRUGS. PHYSICAL EXAMINATION: VITAL SIGNS: Temperature is 36.5 degrees Celsius, pulse is 59 and regular, respiratory rate 18 and unlabored, blood pressure is 98/59. SpO2 is 94% on 2 liters of oxygen via nasal cannula. GENERAL: The patient is in no acute distress. HEENT: Head is atraumatic, normocephalic. EOMs intact. Sclerae are anicteric. Facies symmetric. No perioral cyanosis. Mucous membranes moist. NECK: Without thyromegaly, adenopathy or JVD. CHEST AND LUNGS: With mildly diminished breath sounds throughout, otherwise clear. No wheezes or rales. CARDIOVASCULAR: S1 and S2 are regular with a grade 1/6 basal systolic murmur, heard best over the right second intercostal space. No diastolic murmurs appreciated. No gallops or rubs. ABDOMEN: Bowel sounds present. No masses, organomegaly or tenderness. EXTREMITIES: No edema. Palpable dorsalis pedis pulses bilaterally. Good capillary refill. Left fifth toe surgically absent. Leg is warm to touch, but not as warm as his right leg. ASSESSMENT: 1. Severe peripheral arterial disease, status post PTCA/stent deployment in the left lower extremity arteries. 2. Necrotic left fifth toe, status postsurgical amputation. 3. Type 2 diabetes mellitus. 4. Polycythemia vera rubra, on chronic hydroxyurea. 5. Questionable rheumatoid arthritis. 6. Hypertension. 7. Dyslipidemia. 8. Constipation, possibly secondary to immobility and pain medications. PLAN: 1. I discussed this case with Dr. Ramos. Ultimately, the patient will be transitioned to Coumadin for a goal INR of 2.0-3.0 for the treatment of peripheral vascular disease. In the meantime, he is on a heparin drip. We may be able to send him home on Lovenox and Coumadin in the relatively near future if okay with orthopedic surgeon, Dr. Dumont. 2. 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 3. Continue lisinopril/hydrochlorothiazide 20/25 one tablet daily. 4. Continue Crestor 20 mg daily. 5. Continue hydroxyurea. 6. Add milk of magnesia and MiraLax to his regimen for treatment of constipation. 7. The patient will need to arrange close followup with Dr. Roddy Ramos upon discharge. Will most likely see him within a week of discharge. 8. We will need to arrange followup with Dr. Dumont after the patient is discharged. 9. Discharge may be later today after speaking with Dr. Dumont and that the patient can adequately inject himself with Lovenox. GLORIA
[2017-04-05 11:38] VITALS: BP 111/54; PULSE 64; TEMP 36.7; O2SAT 92
--- NOTE | 2017-04-05 12:05 | Orthopedic Progress Note ---
Orthopedic Progress Note Date of Service Apr 05, 2017. Subjective Post OP Day: 1 Reports: feeling well, Denies: chest pain, nausea / vomiting, light headedness Objective calves soft nontender, N/V intact, dressing C/D/I, A&O x3, toes mobile Date Time Temp Pulse Resp B/P (MAP) Pulse Ox O2 Delivery O2 Flow Rate FiO2 04/05/17 11:38 36.7 64 18 111/54 (73) 92 Room Air 04/05/17 08:13 36.5 59 18 98/59 (72) 94 2.0 04/05/17 08:00 Nasal Cannula 3.0 04/05/17 04:31 36.5 61 18 132/61 (84) 97 Nasal Cannula 3.0 04/05/17 04:00 Nasal Cannula 3.0 04/05/17 00:15 36.6 84 18 126/54 (78) 92 Nasal Cannula 2.0 04/05/17 00:00 Nasal Cannula 3.0 04/04/17 23:27 36.7 76 18 110/64 (79) 92 Nasal Cannula 3.0 04/04/17 22:31 36.7 88 18 118/70 (86) 95 Nasal Cannula 3.0 04/04/17 21:50 96 Nasal Cannula 3.0 04/04/17 21:50 36.5 86 20 115/57 (76) 96 Nasal Cannula 3.0 04/04/17 21:50 Nasal Cannula 3.0 04/04/17 21:40 36.2 84 16 96/55 96 Nasal Cannula 2 04/04/17 21:35 36.2 87 16 91/50 95 Nasal Cannula 4 04/04/17 21:25 36.2 70 16 98/50 95 Nasal Cannula 4 04/04/17 20:12 36.4 69 16 115/60 (78) 95 Nasal Cannula 2 04/04/17 19:55 36.9 71 18 125/64 (84) 92 Nasal Cannula 2.0 04/04/17 16:20 36.8 67 20 135/91 (106) 93 Nasal Cannula 2.0 04/04/17 16:00 Nasal Cannula 2.0 04/04/17 12:26 36.8 63 18 108/56 (73) 92 Nasal Cannula 1.0 Laboratory Results 24 Hours: Test 8/26/17 05:54 Hematocrit 34.1 % Hemoglobin 11.8 g/dL Assessment & Plan Assessment: Gangrene left 5th toe; PVD Plan: s/p left 5th toe amputation POD #1 Patient may resume anticoagulation per primary team Weightbearing as tolerated to heel. follow up in [address] Dumont in the office Dressing change prior to discharge . Inhouse Planning Pain Management: Ultram DVT Prophylaxis: TEDs, SCDs, other (will resume per primary team) Discharge Planning Discharge Planning: uncertain
[2017-04-05 16:30] VITALS: BP 129/61; PULSE 65; TEMP 37.1; O2SAT 92
[2017-04-05 18:58] VITALS: BP 133/61; PULSE 74; TEMP 36.7; O2SAT 93
[2017-04-05] MEDS: ASPIRIN 81 MG ECTAB PO SCH (21:08)
[2017-04-05] MEDS: INSULIN GLARGINE SOLOSTAR 100 UNITS/ML 3 ML PEN SC SCH (21:09)
[2017-04-06 00:57] VITALS: BP 116/64; PULSE 67; TEMP 37.3; O2SAT 92
[2017-04-06 03:48] VITALS: BP 122/62; PULSE 63; TEMP 36.8; O2SAT 95
[2017-04-06 05:51] LABS: HEMATOCRIT 33.2 % (42-52); MEAN CELL VOLUME 103.1 fL (80-100); MEAN CORPUSCULAR HEMOGLOBIN 35.4 pg (25-34); MEAN CORPUSCULAR HGB CONC 34.3 g/dl (32-36); MEAN PLATELET VOLUME 10.1 fL (7.4-10.4); PLATELET COUNT 284 K/uL (130-400); RED BLOOD COUNT 3.22 M/uL (4.7-6.1); WHITE BLOOD COUNT 9.36 K/uL (4.8-10.8)
[2017-04-06 06:01] LABS: PARTIAL THROMBOPLASTIN RATIO 1.1
[2017-04-06] MEDS: INSULIN ASPART 100 UNITS/ML 3 ML PEN SC SCH ×4 (07:00→21:06)
[2017-04-06 08:01] VITALS: BP 138/67; PULSE 78; TEMP 36.5; O2SAT 92
[2017-04-06] MEDS: CLOPIDOGREL BISULFATE 75 MG TAB PO SCH (09:18)
[2017-04-06] MEDS: LISINOPRIL/HCTZ 20/25MG TAB PO SCH (09:19)
[2017-04-06] MEDS: ROSUVASTATIN CALCIUM 20 MG TAB PO SCH (09:19)
[2017-04-06] MEDS: MULTIVITAMIN TAB PO SCH (09:19)
[2017-04-06] MEDS: HYDROXYUREA 500 MG CAP PO SCH ×2 (09:22→21:05)
--- NOTE | 2017-04-06 09:39 | Progress Note ---
Subjective Date of Service: Apr 06, 2017. Subjective this pt is doing well, accompanied by his at bedside. Did discuss anticoagulation and did have wounds inspected by ortho 04/06 Problem List Medical Problems: (1) Arterial occlusion, lower extremity Status: Acute (2) Tick bite of hip Status: Acute Review of Systems Constitutional: + weakness, + fatigue, No fever, No chills Respiratory: No cough, No shortness of breath, No dyspnea on exertion Cardiac: No chest pain, No orthopnea, No edema Abdomen: No pain, No nausea, No vomiting, No diarrhea Musculoskeletal: No joint pain, No muscle pain, No swelling Neurologic: No memory loss, No paralysis Objective Vital Signs Date Time Temp Pulse Resp B/P (MAP) Pulse Ox O2 Delivery O2 Flow Rate FiO2 04/06/17 08:01 36.5 78 18 138/67 (90) 92 Room Air 04/06/17 04:00 Nasal Cannula 2.0 04/06/17 03:48 36.8 63 17 122/62 (82) 95 Nasal Cannula 2.5 04/06/17 00:57 37.3 67 20 116/64 (81) 92 Nasal Cannula 3.0 04/06/17 00:00 Nasal Cannula 2.0 04/05/17 20:00 Nasal Cannula 2.0 04/05/17 18:58 36.7 74 17 133/61 (85) 93 Nasal Cannula 3.0 04/05/17 16:30 37.1 65 20 129/61 (83) 92 Nasal Cannula 3.0 04/05/17 16:00 Room Air 04/05/17 12:00 Nasal Cannula 3.0 04/05/17 11:38 36.7 64 18 111/54 (73) 92 Room Air Physical Exam General Appearance: WD/WN, + mild distress Neck: supple, no JVD Respiratory/Chest: chest non-tender, lungs clear, normal breath sounds Cardiovascular: regular rate, rhythm, no murmur Abdomen: normal bowel sounds, non tender, soft Extremities: + pertinent finding (good capillary refill of exposed toes on left foot, warm and non tender) Neurologic/Psychiatric: alert, oriented x 3 Laboratory Results Last 24 Hours Test 04/05/17 11:15 04/05/17 16:29 04/05/17 20:22 04/06/17 05:40 Bedside Glucose 206 mg/dl 184 mg/dl 188 mg/dl White Blood Count 9.36 K/uL Red Blood Count 3.22 M/uL Hemoglobin 11.4 g/dL Hematocrit 33.2 % Mean Corpuscular Volume 103.1 fL Mean Corpuscular Hemoglobin 35.4 pg Mean Corpuscular Hemoglobin Concent 34.3 g/dl RDW Standard Deviation 52.9 fL RDW Coefficient of Variation 14.0 % Platelet Count 284 K/uL Mean Platelet Volume 10.1 fL Activated Partial Thromboplast Time 28.9 SECONDS Partial Thromboplastin Ratio 1.1 Test 04/06/17 06:54 Bedside Glucose 131 mg/dl Assessment and Plan Severe peripheral arterial disease, status post PTCA/stent deployment in the left lower extremity arteries. post op gangrene to left 5th toe s/p amputation Severe PAD with recent stent, discussed this case with Dr. Ramos. Ultimately, the patient will be transitioned to Coumadin for a goal INR of 2.0-3.0. 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 Continue Crestor 20 mg daily. Type 2 diabetes mellitus. basal bolus Polycythemia vera rubra, on chronic hydroxyurea. RA is on chronic steroids Hypertension lisinopril/hydrochlorothiazide 20/25 one tablet daily. Continued [facility] stay due to: multiple IV medications needed Discharge planning: uncertain
--- NOTE | 2017-04-06 10:44 | Orthopedic Progress Note ---
Orthopedic Progress Note Date of Service Apr 06, 2017. Subjective Post OP Day: 2 Reports: feeling well, pain controlled w PO medications, Denies: chest pain, SOB , nausea / vomiting, light headedness, calf pain Objective calves soft nontender, N/V intact, capillary refill less than 2 sec., dressing C /D/I (packing removed today), incision C/D/I, A&O x3, toes mobile Date Time Temp Pulse Resp B/P (MAP) Pulse Ox O2 Delivery O2 Flow Rate FiO2 04/06/17 08:01 36.5 78 18 138/67 (90) 92 Room Air 04/06/17 04:00 Nasal Cannula 2.0 04/06/17 03:48 36.8 63 17 122/62 (82) 95 Nasal Cannula 2.5 04/06/17 00:57 37.3 67 20 116/64 (81) 92 Nasal Cannula 3.0 04/06/17 00:00 Nasal Cannula 2.0 04/05/17 20:00 Nasal Cannula 2.0 04/05/17 18:58 36.7 74 17 133/61 (85) 93 Nasal Cannula 3.0 04/05/17 16:30 37.1 65 20 129/61 (83) 92 Nasal Cannula 3.0 04/05/17 16:00 Room Air 04/05/17 12:00 Nasal Cannula 3.0 04/05/17 11:38 36.7 64 18 111/54 (73) 92 Room Air Laboratory Results 24 Hours: Test 04/06/17 05:40 Hematocrit 33.2 % Hemoglobin 11.4 g/dL Assessment & Plan Assessment: Gangrene left 5th toe; PVD Plan: s/p left 5th toe amputation POD #2 Patient may resume anticoagulation per primary team Weightbearing as tolerated to heel. follow up in [address] Dumont in the office packing removed today and dressing changed . pt. seen and examined, agree with above Inhouse Planning Pain Management: Ultram DVT Prophylaxis: TEDs, SCDs, other (will resume per primary team) Discharge Planning Discharge Planning: uncertain
[2017-04-06] MEDS: TRAMADOL HCL 50 MG TAB PO PRN ×2 (11:05→21:04)
[2017-04-06 11:53] VITALS: BP 122/65; PULSE 75; TEMP 36.9; O2SAT 92
[2017-04-06 15:45] VITALS: BP 126/58; PULSE 62; TEMP 37.2; O2SAT 94
[2017-04-06] MEDS ORDERED: ENOXAPARIN 1.5 MG/KG SQ SCH (16:15)
[2017-04-06] MEDS: ENOXAPARIN 120 MG/0.8 ML SYR SQ SCH (17:20)
[2017-04-06 19:42] VITALS: BP 147/54; PULSE 68; TEMP 37.2; O2SAT 94
[2017-04-06] MEDS: ASPIRIN 81 MG ECTAB PO SCH (21:04)
[2017-04-06] MEDS: INSULIN GLARGINE SOLOSTAR 100 UNITS/ML 3 ML PEN SC SCH (21:06)
[2017-04-07 00:27] VITALS: BP 129/65; PULSE 64; TEMP 37; O2SAT 93
[2017-04-07 04:21] VITALS: BP 145/63; PULSE 60; TEMP 36.7; O2SAT 91
[2017-04-07 06:33] LABS: HEMATOCRIT 33.3 % (42-52); MEAN CELL VOLUME 103.7 fL (80-100); MEAN CORPUSCULAR HEMOGLOBIN 35.8 pg (25-34); MEAN CORPUSCULAR HGB CONC 34.5 g/dl (32-36); MEAN PLATELET VOLUME 10.5 fL (7.4-10.4); PLATELET COUNT 296 K/uL (130-400); RED BLOOD COUNT 3.21 M/uL (4.7-6.1); WHITE BLOOD COUNT 10.31 K/uL (4.8-10.8)
[2017-04-07 06:56] LABS: PARTIAL THROMBOPLASTIN RATIO 1.2
[2017-04-07] MEDS: INSULIN ASPART 100 UNITS/ML 3 ML PEN SC SCH ×2 (07:00→12:13)
--- NOTE | 2017-04-07 07:35 | Anesthesiology Progress Note ---
Anesthesia Post Op Note Date & Time Apr 07, 2017 at 07:35 Vital Signs Vital Signs Past 12 Hours Date Time Temp Pulse Resp B/P (MAP) Pulse Ox O2 Delivery O2 Flow Rate FiO2 04/07/17 04:21 36.7 60 18 145/63 (90) 91 Nasal Cannula 1.5 04/07/17 04:02 Room Air 04/07/17 00:27 37.0 64 19 129/65 (86) 93 Nasal Cannula 1.5 04/07/17 00:00 Room Air 04/06/17 20:00 Room Air 04/06/17 19:42 37.2 68 18 147/54 (85) 94 Nasal Cannula 1.0 Notes Mental Status: alert / awake / arousable, participated in evaluation Pt Amnestic to Procedure: Yes Nausea / Vomiting: adequately controlled Pain: adequately controlled Airway Patency, RR, SpO2: stable & adequate BP & HR: stable & adequate Hydration State: stable & adequate Anesthetic Complications: no major complications apparent
[2017-04-07 07:40] VITALS: BP 123/66; PULSE 73; TEMP 36.9; O2SAT 91
[2017-04-07] MEDS: CLOPIDOGREL BISULFATE 75 MG TAB PO SCH (08:08)
[2017-04-07] MEDS: LISINOPRIL/HCTZ 20/25MG TAB PO SCH (08:08)
[2017-04-07] MEDS: ROSUVASTATIN CALCIUM 20 MG TAB PO SCH (08:08)
[2017-04-07] MEDS: MULTIVITAMIN TAB PO SCH (08:08)
[2017-04-07] MEDS: HYDROXYUREA 500 MG CAP PO SCH (08:11)
--- NOTE | 2017-04-07 08:56 | Orthopedic Progress Note ---
Orthopedic Progress Note Date of Service Apr 07, 2017. Subjective Post OP Day: 3 Reports: feeling well, pain controlled w PO medications (States he can take a pain pill at night and sleep throughout the night.), Denies: complaints, calf pain Objective calves soft nontender, N/V intact, capillary refill less than 2 sec., dressing C /D/I, A&O x3, toes mobile Incision and skin are well approximated. No erythema. Minimal drainage at the dressing. Date Time Temp Pulse Resp B/P (MAP) Pulse Ox O2 Delivery O2 Flow Rate FiO2 04/07/17 07:40 36.9 73 20 123/66 (85) 91 Nasal Cannula 1.0 04/07/17 04:21 36.7 60 18 145/63 (90) 91 Nasal Cannula 1.5 04/07/17 04:02 Room Air 04/07/17 00:27 37.0 64 19 129/65 (86) 93 Nasal Cannula 1.5 04/07/17 00:00 Room Air 04/06/17 20:00 Room Air 04/06/17 19:42 37.2 68 18 147/54 (85) 94 Nasal Cannula 1.0 04/06/17 16:00 Room Air 04/06/17 15:45 37.2 62 18 126/58 (80) 94 Room Air 04/06/17 12:05 Room Air 04/06/17 11:53 36.9 75 18 122/65 (84) 92 Room Air Laboratory Results 24 Hours: Test 04/07/17 06:14 Hematocrit 33.3 % Hemoglobin 11.5 g/dL Assessment & Plan Assessment: s/p left 5th toe amputation POD #3 Plan: Patient may resume anticoagulation per primary team Weightbearing as tolerated to heel. follow up in [address] Dumont in the office Ortho will sign off at this time. Will order post op shoe. packing removed today and dressing changed . pt. seen and examined, agree with above Inhouse Planning Pain Management: Ultram DVT Prophylaxis: TEDs, SCDs, other (will resume per primary team) Discharge Planning Discharge Planning: uncertain
--- NOTE | 2017-04-07 08:56 | Consultant Recommendations ---
Sign Writer Letterer Or Painter Recommendations Date of Service Apr 07, 2017. Sign Writer Letterer Or Painter Recommendations ACTIVITY RECOMMENDATIONS: Limitations: Heel weight bearing only if able to tolerate. SPECIAL CARE INSTRUCTIONS: * Some drainage onto the dressing is normal and is no cause for alarm. * Some swelling is natural especially after walking. * When resting, keep your foot elevated above the level of your heart. * Call [facility] if you notice: -Increased drainage -Fever over 101 degrees F -Severe constant pain BANDAGE: * Leave bandage/cast in place unless otherwise directed. * Keep bandage/cast dry at all times. PIN CARE: * Leave pins alone. * If pins come loose or fall out, notify physician. FOLLOW UP VISIT WITH DR. HALL If appointment is not already scheduled: Please call [facility] after you get home today to schedule a follow-up appointment for [address] Hall at .
[2017-04-07] MEDS: TRAMADOL HCL 50 MG TAB PO PRN (09:34)
[2017-04-07 11:17] VITALS: BP 122/60; PULSE 75; TEMP 37.1; O2SAT 91
[2017-04-07] MEDS ORDERED: CMD5 PO (13:59)
[2017-04-07] MEDS ORDERED: LVNIS120 SQ (13:59)
[2017-04-07] MEDS ORDERED: ULT50X PO (13:59)
--- NOTE | 2017-04-07 14:04 | Discharge Instructions ---
Discharge Instructions Date of Service Apr 07, 2017. Admission Reason for Admission: Peripheral Artery Disease Discharge Discharge Diagnosis / Problem: left leg arterial stenosis, toe amputation Discharge Goals Goal(s): Diagnostic testing, Therapeutic intervention Activity Recommendations Activity Limitations: resume your previous activity Please continue to use your incentive spirometer at home as much as you are able Please have your blood work checked Friday and Friday this week and determine from Dr Ramos how often after that. Please watch your sugary and high carbohydrate food intake as you are sensitive to blood glucose control . Instructions / Follow-Up Instructions / Follow-Up Follow up with Dr Ramos and Samuel andres please clean the wound of the amputated toe daily with soap and water and use antibiotic ointment if it appears dry, then replace a dry sterile dressing follow up with orthopaedics in 2 weeks Current Hospital Diet Patient's current hospital diet: AHA Diet (Heart Healthy), Diabetes Type 2 Diet Discharge Diet Recommended Diet: Low Sodium Diet (2gm Na), Diabetes Type 2 Diet Procedures Procedures Performed: Amputation left 5th toe Pending Studies Studies pending at discharge: no Laboratory Results Hemoglobin A1c Test 04/03/17 06:36 Range/Units Estimated Average Glucose 140 mg/dl Hemoglobin A1c 6.5 H 4.5-5.6 % Medical Emergencies . Who to Call and When: Medical Emergencies: If at any time you feel your situation is an emergency, please call 911 immediately. . Non-Emergent Contact Non-Emergency issues call your: Primary Care Provider, Traffic Signal Technician Call Non-Emergent contact if: temperature is above 101, your pain is unusual for you . . "Provider Documentation" section prepared by Casimiro Vega. . Bundle Tier And Labeler Recommendations Bundle Tier And Labeler Recommendations: ACTIVITY RECOMMENDATIONS: Limitations: Heel weight bearing only if able to tolerate. SPECIAL CARE INSTRUCTIONS: * Some drainage onto the dressing is normal and is no cause for alarm. * Some swelling is natural especially after walking. * When resting, keep your foot elevated above the level of your heart. * Call [facility] if you notice: -Increased drainage -Fever over 101 degrees F -Severe constant pain BANDAGE: * Leave bandage/cast in place unless otherwise directed. * Keep bandage/cast dry at all times. PIN CARE: * Leave pins alone. * If pins come loose or fall out, notify physician. FOLLOW UP VISIT WITH DR. UDMONT If appointment is not already scheduled: Please call [facility] [place] after you get home today to schedule a follow-up appointment for [address] Dumont at . VTE Core Measure Inpt VTE Proph given/why not?: Enoxaparin (Lovenox)SQ, Warfarin (Coumadin)
[2017-04-07 14:43] VITALS: BP 122/60; PULSE 75; TEMP 37.1; O2SAT 91
[2017-04-07] MEDS: ENOXAPARIN 120 MG/0.8 ML SYR SQ SCH (15:10)
--- NOTE | 2017-04-07 18:22 | Discharge Summary ---
Discharge Summary Date of Service Apr 07, 2017. 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 Daren Ramos performed angioplasty and will follow anticoagulation Orthopedics will follow amputation Medication Reconciliation New Medications: Warfarin Sod (Coumadin) 5 Mg Tab 5 MG PO UD, #30 DOSE 6 Refills take one tablet daily and as directed by Dr Ramos Enoxaparin (Lovenox) 120 Mg/0.8 Ml Inj 111 MG SQ DAILY@1800, #5 DOSE Tramadol HCl (Tramadol HCl) 50 Mg Tab 50 MG PO Q4H PRN for moderate Pain, #60 TAB Continued Medications: Aspirin (Aspirin Ec) 81 Mg Tab 81 MG PO QPM Restart in 5 days if urine clear Clopidogrel Bisulfate (Plavix) 75 Mg Tab 1 TAB PO DAILY for 90 Days, #90 TAB 1 Refill Cod Liver Oil (Cod Liver Oil) 1 Cap Cap Hctz/Lisinopril (Lisinopril/Hctz 20/25 Mg) 1 Ea Tab 1 TAB PO QAM, TAB Multivitamin (Multivitamin) Tab 1 TAB PO QAM, TAB Prednisone (Prednisone) 1 Mg Tab 3 MG PO QPM, TAB Rosuvastatin Calcium (Crestor) 5 Mg Tab 1 TAB PO DAILY for 30 Days, #30 TAB 5 Refills [Hydroxyurea] () 500 MG PO BID Discontinued Medications: Ibuprofen Tab (Advil) 200 Mg Tab 200 MG PO Q6 PRN for Pain, TAB Discharge Exam Review of Systems: Constitutional: No fever, No chills Respiratory: No cough, No sputum, No wheezing, No shortness of breath, No dyspnea on exertion Abdomen: No pain, No nausea, No vomiting Musculoskeletal: + joint pain, No muscle pain, No swelling Psychiatric: No depression symptoms, No anhedonism Physical Exam: General Appearance: WD/WN, + mild distress Eyes: PERRL, EOMI Neck: supple, no JVD Respiratory/Chest: chest non-tender, lungs clear, normal breath sounds, no respiratory distress Cardiovascular: regular rate, rhythm, + systolic murmur Abdomen / GI: normal bowel sounds, non tender, soft Skin: + pertinent finding (wound is clean dry and intact) Lymphatic: + pertinent finding Hospital Course Severe peripheral arterial disease, status post PTCA/stent deployment in the left lower extremity arteries. 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 Ramos. Ultimately, the patient will be transitioned to Coumadin for a goal INR of 2.0-3.0. 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 Continue Crestor 20 mg daily. Patient had some hypoxia which improved with incentive spirometry and deep breathing he likely may have some COPD from long ago smoking this could be worked up as an outpatient once he recovers, he was 96% on room air after incentive spirometry prior to going home Type 2 diabetes mellitus. Will return to diet-controlled, close outpatient follow-up is recommended Polycythemia vera rubra, on chronic hydroxyurea. RA is on chronic steroids Hypertension lisinopril/hydrochlorothiazide 20/25 one tablet daily. Total Time Spent: Greater than 30 minutes This includes examination of the patient, discharge planning, medication reconciliation, and communication with other providers. Discharge Instructions Please refer to the electronic Patient Visit Report (Discharge Instructions) for additional information.
[2017-04-11 13:23] LABS: B2 GLYCOPROTEIN IGA <9 SAU (<=20); B2 GLYCOPROTEIN IGG <9 SGU (<=20); B2 GLYCOPROTEIN IGM <9 SMU (<=20); DRVVT MIX INTERPRETAION Not Indicated; LAC PTT SCREEN 100 sec (<=40); LUPUS ANTICOAGULANT** TC36573X Positive (Negative); PHOSPHATIDYLSERINE IGA <20 U/mL (<20); PHOSPHATIDYLSERINE IGG <10 U/mL (<10); PHOSPHATIDYLSERINE IGM <25 U/mL (<25)
[2017-04-15 10:00] LABS: THROMBIN TIME(REFLEX!DO NOTORD 42 sec (13-19)
== END 2017-04-07 15:28 | disposition home health service (06) | DRG 271 ==
LOC: C.EDB 11:33 → C.2T 15:45 → ENRESERV 16:03 → INTOOBSV 21:06 → OBSVTOIN 21:06 → ENRESERV 21:08 → C.MSICU 21:20 → OBSVTOIN 04-01 20:07 → C.2E 04-02 12:49
PROVIDERS: ADMIT Family Medicine; ATTEND Internal Medicine
PROC: 04CN3ZZ Extirpation of Matter from Left Popliteal Artery, Percutaneous Approach (ICD-10-PCS; principal; 2017-04-01 13:00)
PROC: 3E05317 Introduction of Other Thrombolytic into Peripheral Artery, Percutaneous Approach (ICD-10-PCS; principal; 2017-04-01 13:00)
PROC: 047N3ZZ Dilation of Left Popliteal Artery, Percutaneous Approach (ICD-10-PCS; principal; 2017-04-01 13:00)
PROC: 047L3DZ Dilation of Left Femoral Artery with Intraluminal Device, Percutaneous Approach (ICD-10-PCS; principal; 2017-04-01 13:00)
PROC: 047U3ZZ Dilation of Left Peroneal Artery, Percutaneous Approach (ICD-10-PCS; principal; 2017-04-01 13:00)
PROC: 0Y6Y0Z0 Detachment at Left 5th Toe, Complete, Open Approach (ICD-10-PCS; 2017-04-04)
DX: T82.856A Stenosis of peripheral vascular stent, initial encounter (principal); I70.262 Atherosclerosis of native arteries of extremities with gangrene, left leg; I47.1 Supraventricular tachycardia; I10 Essential (primary) hypertension; E11.9 Type 2 diabetes mellitus without complications; M06.9 Rheumatoid arthritis, unspecified; E78.5 Hyperlipidemia, unspecified; Z88.2 Allergy status to sulfonamides; S70.269A Insect bite (nonvenomous), unspecified hip, initial encounter; D53.9 Nutritional anemia, unspecified; K59.03 Drug induced constipation; J44.9 Chronic obstructive pulmonary disease, unspecified; Z79.01 Long term (current) use of anticoagulants; R09.02 Hypoxemia; D45 Polycythemia vera; Z79.52 Long term (current) use of systemic steroids; Z86.718 Personal history of other venous thrombosis and embolism; Y92.89 Other specified places as the place of occurrence of the external cause; Y83.1 Surgical operation with implant of artificial internal device as the cause of abnormal reaction of the patient, or of later complication, without mention of misadventure at the time of the procedure; W57.XXXA Bitten or stung by nonvenomous insect and other nonvenomous arthropods, initial encounter

== ENCOUNTER → 2017-04-09 | Outpatient (CLI) | payer OTHER ==
[~2017-04-09] MED LIST changes: +CLOP1TAB5 PO; +CMD5 PO; -GARLTAB3 PO; -IBUP-103 PO; -LOVA10TA3 PO; +LVNIS120 SQ; -PLV75 PO; -POTA-327 PO; +ROSU5TAB PO; +ULT50X PO
[2017-04-09 12:31] LABS: INR 1.1 (0.9-1.1); PROTHROMBIN TIME (PATIENT) 12.3 SECONDS (9.0-12.0)
== END | disposition home or self-care (01) ==
LOC: C.LABSPEC 11:36
PROVIDERS: ATTEND Internal Medicine Interventional Cardiology
DX: Z79.01 Long term (current) use of anticoagulants (principal); Z51.81 Encounter for therapeutic drug level monitoring

== ENCOUNTER → 2017-04-11 | Outpatient (CLI) | payer OTHER ==
[2017-04-11 10:52] LABS: INR 2.4 (0.9-1.1); PROTHROMBIN TIME (PATIENT) 26.1 SECONDS (9.0-12.0)
--- NOTE | 2017-04-25 11:44 | CODING QUERY NO DIAGNOSIS ---
Valid Physician Order Needed A valid physician order must be submitted in order to properly bill for the service(s) provided, including date of service(s), valid diagnosis, and physician signature. If these tests are done on a recurring basis the original physican order must be submitted in order to code and bill for the service(s) provided. Please fax us the original, signed physician order so that we may expedite billing to [phone] DOS 04/11/2017 * PT/INR Thank you Shannan [facility] Information Management
== END | disposition home or self-care (01) ==
LOC: C.LABSPEC 10:17
PROVIDERS: ATTEND Internal Medicine Interventional Cardiology
DX: E11.51 Type 2 diabetes mellitus with diabetic peripheral angiopathy without gangrene (principal); D59.0 Drug-induced autoimmune hemolytic anemia; Z47.81 Encounter for orthopedic aftercare following surgical amputation

== ENCOUNTER → 2017-04-29 | Outpatient (CLI) | payer OTHER ==
[2017-04-29 12:18] LABS: BASO % 0.4 %; BASO ABS # 0.04 K/uL (0-0.2); COMPLETE YES; EOS % 0.6 %; HEMATOCRIT 34.9 % (42-52); IG% 0.3 %; LYMPH % 17.3 %; LYMPH ABS # 1.83 K/uL (1.2-3.4); MEAN CELL VOLUME 103.6 fL (80-100); MEAN CORPUSCULAR HEMOGLOBIN 35.3 pg (25-34); MEAN CORPUSCULAR HGB CONC 34.1 g/dl (32-36); MEAN PLATELET VOLUME 10.4 fL (7.4-10.4); MONO % 6.8 %; NEUT % 74.6 %; PLATELET COUNT 292 K/uL (130-400); RED BLOOD COUNT 3.37 M/uL (4.7-6.1); WHITE BLOOD COUNT 10.56 K/uL (4.8-10.8)
[2017-04-29 12:40] LABS: URINE APPEARANCE CLOUDY (CLEAR); URINE BILIRUBIN NEG (NEG); URINE COLOR DK YELLOW; URINE NITRITE NEG (NEG); URINE SPECIFIC GRAVITY 1.024 (1.000-1.030); UROBILINOGEN NEG (NEG); ZZUR CULT IF INDIC CLEAN CATCH YES
[2017-04-29 12:55] LABS: MANUAL MICROSCOPIC REQUIRED? NO; REVIEW REQ? YES
== END | disposition home or self-care (01) ==
LOC: C.LAB1850 10:09
PROVIDERS: ATTEND Physician Assistant Medical
DX: R31.9 Hematuria, unspecified (principal)

== ENCOUNTER → 2017-05-07 | Outpatient (CLI) | payer OTHER ==
[2017-05-07 12:39] LABS: URINE APPEARANCE CLEAR (CLEAR); URINE BILIRUBIN NEG (NEG); URINE COLOR DK YELLOW; URINE EPITHELIAL CELL AUTO >30 /lpf (0-5); URINE NITRITE NEG (NEG); URINE SPECIFIC GRAVITY 1.023 (1.000-1.030); UROBILINOGEN NEG (NEG); ZZUR CULT IF INDIC CLEAN CATCH YES
[2017-05-07 12:47] LABS: MANUAL MICROSCOPIC REQUIRED? NO; REVIEW REQ? NO
== END | disposition home or self-care (01) ==
LOC: C.LABPVFM 07:28
PROVIDERS: ATTEND Physician Assistant Medical
DX: R82.90 Unspecified abnormal findings in urine (principal); I74.9 Embolism and thrombosis of unspecified artery

== ENCOUNTER → 2017-05-09 | Outpatient (CLI) | payer OTHER | END | disposition home or self-care (01) | LOC: C.LABSPEC 13:21 | PROVIDERS: ATTEND Internal Medicine Infectious Disease | DX: L03.116 Cellulitis of left lower limb (principal) ==

== ENCOUNTER → 2017-05-23 | Outpatient (CLI) | payer OTHER ==
[2017-05-23 14:06] LABS: URINE APPEARANCE CLEAR (CLEAR); URINE BILIRUBIN NEG (NEG); URINE COLOR YELLOW; URINE NITRITE NEG (NEG); URINE PH 5.5 (4.5-7.5); URINE SPECIFIC GRAVITY 1.014 (1.000-1.030); UROBILINOGEN NEG (NEG); ZZUR CULT IF INDIC CLEAN CATCH NO
[2017-05-23 14:07] LABS: MANUAL MICROSCOPIC REQUIRED? NO; REVIEW REQ? NO
== END | disposition home or self-care (01) ==
LOC: C.LABPVFM 12:46
PROVIDERS: ATTEND Physician Assistant Medical
DX: R31.9 Hematuria, unspecified (principal)

== ENCOUNTER → 2017-06-23 | Outpatient (CLI) | payer OTHER ==
[~2017-06-23] MED LIST changes: -CODCAP; +CODCAP4
[2017-06-23 13:12] LABS: BASO % 0.4 %; BASO ABS # 0.03 K/uL (0-0.2); COMPLETE YES; HEMATOCRIT 35.7 % (42-52); IG% 0.1 %; LYMPH % 13.4 %; LYMPH ABS # 0.94 K/uL (1.2-3.4); MEAN CELL VOLUME 107.5 fL (80-100); MEAN CORPUSCULAR HEMOGLOBIN 33.7 pg (25-34); MEAN CORPUSCULAR HGB CONC 31.4 g/dl (32-36); MEAN PLATELET VOLUME 10.7 fL (7.4-10.4); MONO % 7.1 %; PLATELET COUNT 254 K/uL (130-400); RED BLOOD COUNT 3.32 M/uL (4.7-6.1)
[2017-06-23 13:15] LABS: ESTIMATED AVERAGE GLUCOSE 105 mg/dl; HA1C FLAG Normal (Normal)
[2017-06-23 13:53] LABS: ALT/SGPT 19 U/L (12-78); BLOOD UREA NITROGEN 16 mg/dl (7-18); BUN/CREATININE RATIO 16.2 (10-20); CALCIUM 8.5 mg/dl (8.5-10.1); CARBON DIOXIDE 26 mmol/L (21-32); CHLORIDE 99 mmol/L (98-107); CHOLESTEROL 63 mg/dl (0-200); CREATININE 0.99 mg/dl (0.60-1.40); GLUCOSE 102 mg/dl (70-99); POTASSIUM 3.5 mmol/L (3.5-5.1); SODIUM 136 mmol/L (136-145)
[2017-06-23 13:56] LABS: ALB/GLOB RATIO 0.9 (0.9-2); ALKALINE PHOSPHATASE 63 U/L (45-117); AST/SGOT 20 U/L (15-37); CHOLESTEROL/HDL RATIO 1.7; HDL CHOLESTEROL 37 mg/dl; LDL CHOLESTEROL CALCULATED 16 mg/dl; TRIGLYCERIDES 51 mg/dl (0-150); VERY LOW DENSITY LIPOPROT CALC 10 mg/dl
== END | disposition home or self-care (01) ==
LOC: C.LABPVFM 07:22
PROVIDERS: ATTEND Internal Medicine Pulmonary Disease
DX: I10 Essential (primary) hypertension (principal); E11.9 Type 2 diabetes mellitus without complications; E78.5 Hyperlipidemia, unspecified; I73.9 Peripheral vascular disease, unspecified; D47.3 Essential (hemorrhagic) thrombocythemia

== ENCOUNTER → 2017-07-16 | Outpatient (CLI) | payer OTHER ==
[2017-07-16 12:43] LABS: BASO % 0.3 %; BASO ABS # 0.02 K/uL (0-0.2); COMPLETE YES; EOS % 0.5 %; HEMATOCRIT 31.8 % (42-52); IG% 0.3 %; LYMPH % 12.7 %; LYMPH ABS # 0.83 K/uL (1.2-3.4); MEAN CELL VOLUME 104.6 fL (80-100); MEAN CORPUSCULAR HEMOGLOBIN 32.9 pg (25-34); MEAN CORPUSCULAR HGB CONC 31.4 g/dl (32-36); MEAN PLATELET VOLUME 10.6 fL (7.4-10.4); MONO % 6.9 %; NEUT % 79.3 %; PLATELET COUNT 230 K/uL (130-400); RED BLOOD COUNT 3.04 M/uL (4.7-6.1); WHITE BLOOD COUNT 6.52 K/uL (4.8-10.8)
== END | disposition home or self-care (01) ==
LOC: C.LABPVFM 09:09
PROVIDERS: ATTEND Nurse Practitioner Family
DX: D47.3 Essential (hemorrhagic) thrombocythemia (principal)

== ENCOUNTER → 2017-07-23 | Outpatient (CLI) | payer OTHER ==
[~2017-07-23] MED LIST changes: +OPTIRAY 320 IV PRN
--- NOTE | 2017-07-23 13:51 | DIAGNOSTIC IMAGING REPORT ---
LEFT FOOT CT CT DOSE: 237.47 mGy.cm HISTORY: Left foot infection. M86.9 [id number] TECHNIQUE: Multiaxial CT images of the left foot were performed and reformatted in the sagittal and coronal plane without the use of contrast. A dose lowering technique was utilized adhering to the principles of ALARA. COMPARISON: Left foot 04/02/2017. FINDINGS: Interval amputation of the fifth toe. Soft tissue swelling/thickening surrounding the head of the fifth metatarsal. Patchy sclerosis and erosion at the head of the fifth metatarsal consistent with osteomyelitis. There is mild subcutaneous edema within the foot. No loculated fluid collections at this time to suggest an abscess. No fracture or dislocation. Moderate osteoarthritis at the first MTP joint. IMPRESSION: 1. Patchy sclerosis and erosion at the head of the fifth metatarsal consistent with osteomyelitis. 2. Interval amputation of the fifth toe. Electronically signed by: Rafat Kendall M.D. 07/23/2017 1:50 PM Dictated Date/Time: 07/23/2017 1:46 PM
== END | disposition home or self-care (01) ==
LOC: C.CTS 12:58
PROVIDERS: ATTEND Internal Medicine Infectious Disease
DX: M86.9 Osteomyelitis, unspecified (principal); Z89.422 Acquired absence of other left toe(s)

== ENCOUNTER → 2017-10-10 | Outpatient (CLI) | payer OTHER ==
[~2017-10-10] MED LIST changes: -OPTIRAY 320 IV PRN
[2017-10-10 12:31] LABS: BASO % 0.3 %; BASO ABS # 0.03 K/uL (0-0.2); EOS % 0.6 %; EOS ABS # 0.05 K/uL (0-0.5); HEMATOCRIT 36.6 % (42-52); HEMOGLOBIN 11.1 g/dL (14.0-18.0); IG# 0.03 K/uL (0.00-0.02); LYMPH % 16.1 %; MEAN CELL VOLUME 95.3 fL (80-100); MEAN CORPUSCULAR HEMOGLOBIN 28.9 pg (25-34); MEAN CORPUSCULAR HGB CONC 30.3 g/dl (32-36); MEAN PLATELET VOLUME 10.6 fL (7.4-10.4); MONO % 5.8 %; NEUT % 76.9 %; NEUT ABS # 6.66 K/uL (1.4-6.5); PLATELET COUNT 207 K/uL (130-400); RED CELL DISTRIBUTION WIDTH CV 16.3 % (11.5-14.5); RED CELL DISTRIBUTION WIDTH SD 56.4 fL (36.4-46.3); WHITE BLOOD COUNT 8.67 K/uL (4.8-10.8)
[2017-10-10 13:09] LABS: ALBUMIN 3.5 gm/dl (3.4-5.0); ALT/SGPT 30 U/L (12-78); AST/SGOT 25 U/L (15-37); BLOOD UREA NITROGEN 23 mg/dl (7-18); CALCIUM 8.7 mg/dl (8.5-10.1); CARBON DIOXIDE 25 mmol/L (21-32); CREATININE 1.09 mg/dl (0.60-1.40); GLUCOSE 139 mg/dl (70-99); POTASSIUM 3.8 mmol/L (3.5-5.1); SODIUM 136 mmol/L (136-145)
[2017-10-10 13:12] LABS: ALKALINE PHOSPHATASE 84 U/L (45-117); TOTAL PROTEIN 7.4 gm/dl (6.4-8.2)
== END | disposition home or self-care (01) ==
LOC: C.LABPVFM 10:11
PROVIDERS: ATTEND Nurse Practitioner Family
DX: D47.3 Essential (hemorrhagic) thrombocythemia (principal)

== ENCOUNTER → 2017-12-23 | Outpatient (CLI) | payer OTHER ==
[2017-12-23 14:04] LABS: BASO % 0.2 %; BASO ABS # 0.02 K/uL (0-0.2); EOS % 0.6 %; EOS ABS # 0.05 K/uL (0-0.5); HEMATOCRIT 37.2 % (42-52); HEMOGLOBIN 11.5 g/dL (14.0-18.0); IG# 0.02 K/uL (0.00-0.02); LYMPH % 15.6 %; MEAN CELL VOLUME 95.1 fL (80-100); MEAN CORPUSCULAR HEMOGLOBIN 29.4 pg (25-34); MEAN CORPUSCULAR HGB CONC 30.9 g/dl (32-36); MEAN PLATELET VOLUME 11.5 fL (7.4-10.4); MONO % 6.8 %; MONO ABS # 0.57 K/uL (0.11-0.59); NEUT % 76.6 %; NEUT ABS # 6.37 K/uL (1.4-6.5); PLATELET COUNT 218 K/uL (130-400); RED CELL DISTRIBUTION WIDTH CV 17.1 % (11.5-14.5); RED CELL DISTRIBUTION WIDTH SD 59.2 fL (36.4-46.3); WHITE BLOOD COUNT 8.33 K/uL (4.8-10.8)
[2017-12-23 14:13] LABS: HEMOGLOBIN A1C 6.5 % (4.5-5.6)
[2017-12-23 14:35] LABS: CREATININE RANDOM URINE 91.4 mg/dl
[2017-12-23 14:42] LABS: ALBUMIN 3.4 gm/dl (3.4-5.0); ALT/SGPT 26 U/L (12-78); AST/SGOT 24 U/L (15-37); BLOOD UREA NITROGEN 21 mg/dl (7-18); CALCIUM 8.4 mg/dl (8.5-10.1); CARBON DIOXIDE 25 mmol/L (21-32); CHOLESTEROL 71 mg/dl (0-200); CREATININE 1.07 mg/dl (0.60-1.40); GLUCOSE 101 mg/dl (70-99); POTASSIUM 3.6 mmol/L (3.5-5.1); SODIUM 139 mmol/L (136-145)
[2017-12-23 14:52] LABS: ALKALINE PHOSPHATASE 74 U/L (45-117); LDL CHOLESTEROL CALCULATED 19 mg/dl
== END | disposition home or self-care (01) ==
LOC: C.LABPVFM 07:17
PROVIDERS: ATTEND Internal Medicine Pulmonary Disease
DX: I10 Essential (primary) hypertension (principal); E11.9 Type 2 diabetes mellitus without complications; Z79.52 Long term (current) use of systemic steroids; I73.9 Peripheral vascular disease, unspecified; D47.3 Essential (hemorrhagic) thrombocythemia

== ENCOUNTER → 2018-02-27 | Outpatient (CLI) | payer OTHER ==
[~2018-02-27] MED LIST changes: +LISI20TA11 PO; -LSN/2025 PO
[2018-02-27 13:06] LABS: BLOOD UREA NITROGEN 21 mg/dl (7-18); CREATININE 1.16 mg/dl (0.60-1.40)
== END | disposition home or self-care (01) ==
LOC: C.LABPVFM 07:06
PROVIDERS: ATTEND Urology
DX: C67.9 Malignant neoplasm of bladder, unspecified (principal)

== ENCOUNTER 2019-08-06 16:04 | Inpatient (IN) ==
[2019-08-06] MEDS ORDERED: ALBUT/IPRATROP 3MG/0.5MG NEB 3 ML VIAL NEB STA (16:41)
[2019-08-06 17:36] LABS: Basophils # (auto) 0.06 K/uL (0-0.2); Basophils % (auto) 0.5 %; Eosinophils # (auto) 0.08 K/uL (0-0.5); Eosinophils % (auto) 0.6 %; Hematocrit (blood only) 42.1 % (42-52); Hemoglobin 13.2 g/dL (14.0-18.0); Immature Granulocytes # (auto) 0.04 K/uL (0.00-0.02); Immature Granulocytes % (auto) 0.3 %; Lymphocytes # (auto) 1.46 K/uL (1.2-3.4); Mean Corpuscular Hemoglobin 33.8 pg (25-34); Mean Corpuscular Hgb Conc 31.4 g/dL (32-36); Mean Corpuscular Volume 107.9 fL (80-100); Mean Platelet Volume 12.3 fL (7.4-10.4); Monocytes # (auto) 0.69 K/uL (0.11-0.59); Monocytes % (auto) 5.2 %; Neutrophils # (auto) 10.95 K/uL (1.4-6.5); Neutrophils % (auto) 82.4 %; Platelet Count 234 K/uL (130-400); RDW Coefficient of Variation 20.8 % (11.5-14.5); RDW Standard Deviation 82.8 fL (36.4-46.3); White Blood Count 13.28 K/uL (4.8-10.8)
[2019-08-06 17:52] LABS: Alanine Aminotransferase 21 U/L (12-78); Albumin Level 3.4 gm/dl (3.4-5.0); Aspartate Aminotransferase 24 U/L (15-37); BUN Creatinine Ratio 24.2 (10-20); Bilirubin Direct < 0.1 mg/dl (0-0.2); Blood Urea Nitrogen 35 mg/dl (7-18); Calcium 8.7 mg/dl (8.5-10.1); Carbon Dioxide 22 mmol/L (21-32); Chloride 113 mmol/L (98-107); Creatinine Clr Calc Pharmacy 38.7 ml/min; Est GFR (African American) 52.8; Est GFR (Non-African American) 45.5; Glucose 97 mg/dl (70-99); Potassium 3.9 mmol/L (3.5-5.1); Sodium 144 mmol/L (136-145)
[2019-08-06 17:57] LABS: Alkaline Phosphatase 99 U/L (45-117); Bilirubin,Total 0.8 mg/dl (0.2-1); NT Pro B Type Natriuretic Pept 9559 pg/ml (0-1800); Total Protein 7.1 gm/dl (6.4-8.2); Troponin I < 0.015 ng/ml (0-0.045)
[2019-08-06 17:58] LABS: Prothrombin Time 44.9 Seconds (9.0-12.0)
--- NOTE | 2019-08-06 18:08 | XRay Report ---
XR chest 1V portable HISTORY: 79 years-old Male Hypoxia acute hypoxia COMPARISON: Chest radiographs 03/19/2018 TECHNIQUE: Portable AP view of the chest FINDINGS: Cardiomediastinal and hilar silhouettes are unchanged. Calcified plaque of the thoracic aortic arch. Mild interstitial coarsening has progressed from comparison. No pneumothorax, pleural effusion or ove rt pulmonary edema. Linear subsegmental left basilar opacities suggest atelectasis/scarring. Degenera tive changes of the shoulders and spine. IMPRESSION: 1. Interstitial coarsening has progressed from comparison study and may reflect mild pulmonary edema, atypical infection or progressive fibrotic change. 2. Mild bibasilar opacities suggest atelectasis. ACT 112: Negative or not required by law. The above report was generated using voice recognition software. It may contain grammatical, syntax o r spelling errors. Electronically signed by: Rahul Juarez M.D. 08/06/2019 6:06 PM
[2019-08-06 18:13] LABS: INR 4.9 (0.9-1.1)
[2019-08-06] MEDS ORDERED: ALBUT/IPRATROP 3MG/0.5MG NEB 3 ML VIAL NEB ONE (18:27)
[2019-08-06] MEDS ORDERED: methylPREDNISolone 125 MG/2 ML VIAL IV STA (18:27)
[2019-08-06] MEDS ORDERED: LEVOFLOXACIN/D5W 750 MG/150 ML BAG IV STA (19:43)
[2019-08-06 20:05] LABS: Base Excess VBG -2.1 mEq/L; HCO3 VBG 23 mmol/L; PCO2 VBG 38 mmHg (38-50); PO2 VBG 25 mmHg; pH VBG 7.39 (7.36-7.41)
[2019-08-06 20:07] LABS: Oxygen Saturation VBG < 60.0 %
--- NOTE | 2019-08-06 21:47 | History & Physical Report ---
Date of Service August 06, 2019 Assessment & Plan (1) Acute respiratory failure with hypoxia: Admit to monitored bed to follow oxygenation. Methylprednisolone 40 mg IV every 8 hours. Ceftriaxone 1 g IV daily. Levofloxacin 500 mg IV every 24 hours. Pulmicort Respules 0.5 mg inhaled twice daily. DuoNebs 4 times daily and every 2 hours as needed. Present on Admission?: Yes (2) Arteriosclerotic cardiovascular disease (ASCVD): Continue to optimize control of hypertension, aspirin and clopidogrel to be continued. Present on Admission?: Yes (3) Benign hypertension: Continue aspirin 81 mg daily, and clopidogrel 70 mg daily. Continue Cipro/HCTZ 20/25, 1 p.o. daily. Present on Admission?: Yes (4) Deep vein thrombosis of lower extremity: Hold warfarin tonight for INR 4.9. Resume warfarin 5 mg p.o. daily when INR is less than or equal to 2.5 Present on Admission?: Yes (5) Diabetes mellitus: Hold metformin. Place on Accu-Cheks before meals and at bedtime with NovoLog coverage per scale Present on Admission?: Yes (6) Enlarged prostate with lower urinary tract symptoms (LUTS): Monitor for symptoms. On no direct treatment at this time. Present on Admission?: Yes History of Present Illness Chief Complaint: The patient presents to the emergency department with complaint of shortness of breath that worsened today while he was walking downstairs and while vacuuming. Primary Care Provider: Emeterio Hardin MD The patient is an 79-year-old male with a past medical history including aortic valve stenosis, ASCVD, benign hypertension, lower extremity DVT, diabetes mellitus, dyslipidemia, BPH with LUTS, polyarthralgias, pleural plaque with presence of asbestos, gangrene of left toe and peripheral arterial disease. The patient reports that he has had difficulty with breathing for several years, but periodically has an exacerbation, and notes that he has had to take more frequent breaks to be able to do routine chores at home. He has not had any recent travels or sick exposures. Allergies Allergy/AdvReac Type Severity Reaction Status Date / Time Sulfa (Sulfonamide Allergy Intermediate HIVES Verified 08/06/19 17:29 Antibiotics) atorvastatin AdvReac Mild LEG CRAMPS Verified 08/06/19 17:29 cilostazol AdvReac Mild DIARRHEA Verified 08/06/19 17:29 Home Medications Home Medications Medication Instructions Recorded Confirmed Type aspirin 81 mg tablet,delayed 81 mg PO DAILY #30 tab 03/17/19 08/06/19 Rx release hydroxyurea 500 mg capsule 1,000 mg PO DAILY #180 cap 03/17/19 08/06/19 Rx clopidogrel 75 mg tablet 75 mg PO DAILY #90 tab 07/06/19 08/06/19 Rx warfarin 5 mg tablet 5 mg PO DAILY #180 tab 07/06/19 08/06/19 Rx propranolol 60 mg capsule,24 60 mg PO DAILY #30 cap 07/15/19 08/06/19 Rx hr,extended release lisinopril 20 1 tab PO DAILY #90 tab 07/19/19 08/06/19 Rx mg-hydrochlorothiazide 25 mg tablet metformin 1,000 mg tablet 1,000 mg PO BID #180 tab 07/19/19 08/06/19 Rx potassium gluconate 595 mg PO DAILY 08/06/19 08/06/19 History prednisone 2 mg PO DAILY 08/06/19 08/06/19 History Past Med/Surg History Social History Preferred Language: Citizen Of [place] Communication Ability: Effective Control Specialist Required: No Beliefs That Will Affect Care: None Current Living Situation: Spouse Other Information That Helps Us Care for You: No Feels Safe at Home: Yes Safety Concerns: Feels Safe At This Time Smoking Status: Former smoker Do You Dip or Chew Tobacco: No ; Second Hand Exposure: No ; Tobacco Cessation Education Requested by Patient: No Hx Alcohol Use: No Hx Substance Use: No Review of Systems Review of Systems: The patient denies chest pain, palpitations, cough, lower extremity swelling, sore throat, fevers, chills, sweats, nausea, vomiting, diarrhea , constipation, abdominal pain, pelvic pain, blood in urine or stool, dysuria, urinary frequency or urgency, loss of consciousness, rash, abnormal bruising or bleeding, imbalance, focal weakness, numbness or tingling in arms or legs, or night sweats. The review of systems is otherwise negative other than for that already noted above, and at least 10 systems have been reviewed. Physical Exam Physical Exam: The patient is awake, alert and oriented 3, well developed and well nourished, normocephalic and atraumatic, lying in bed and in no acute distress. HEENT--PERRL, EOMI, mucous membranes and oropharynx normal. Neck--supple. No JVD. No bruits. Thyroid normal, trachea midline, no adenopathy. Heart--normal S1 and S2. No murmurs, rubs or gallops. Lungs--decreased breath sounds throughout. Mild respiratory distress, no accessory muscle use. Abdomen--normal bowel sounds and soft. Nontender. Nondistended. Extremities--no cyanosis or clubbing. No edema. Dermatologic--normal skin turgor, normal color, no abnormal lymph nodes, no rash. Neurologic--cranial nerves II through XII grossly intact. Rheumatologic--normal range of motion. Psychiatric--normal affect. Results & Data Vital Signs (Past 12 Hours) Vital Signs Temp Pulse Pulse Resp BP BP Pulse Ox 08/06/19 20:30 75 18 144/75 H 93 08/06/19 19:05 54 L 22 89 L 08/06/19 19:00 83 20 142/92 H 93 08/06/19 17:14 50 L 20 124/62 93 08/06/19 17:13 93 08/06/19 16:51 20 88 L 08/06/19 16:24 97.5 F L 54 L 18 100/67 83 L Laboratory Results Laboratory Results WBC 13.28 K/uL (4.8-10.8) H 08/06/19 17:07 RBC 3.90 M/uL (4.7-6.1) L 08/06/19 17:07 Hgb 13.2 g/dL (14.0-18.0) L 08/06/19 17:07 Hct 42.1 % (42-52) 08/06/19 17:07 MCV 107.9 fL (80-100) H 08/06/19 17:07 MCH 33.8 pg (25-34) 08/06/19 17:07 MCHC 31.4 g/dL (32-36) L 08/06/19 17:07 RDW Std Deviation 82.8 fL (36.4-46.3) H 08/06/19 17:07 RDW Coeff of Dru 20.8 % (11.5-14.5) H 08/06/19 17:07 Plt Count 234 K/uL (130-400) 08/06/19 17:07 MPV 12.3 fL (7.4-10.4) H 08/06/19 17:07 Immature Gran % (Auto) 0.3 % 08/06/19 17:07 Neut % (Auto) 82.4 % 08/06/19 17:07 Lymph % (Auto) 11.0 % 08/06/19 17:07 [place] % (Auto) 5.2 % 08/06/19 17:07 Eos % (Auto) 0.6 % 08/06/19 17:07 Baso % (Auto) 0.5 % 08/06/19 17:07 Immature Gran # (Auto) 0.04 K/uL (0.00-0.02) H 08/06/19 17:07 Neut # (Auto) 10.95 K/uL (1.4-6.5) H 08/06/19 17:07 Lymph # (Auto) 1.46 K/uL (1.2-3.4) 08/06/19 17:07 [place] # (Auto) 0.69 K/uL (0.11-0.59) H 08/06/19 17:07 Eos # (Auto) 0.08 K/uL (0-0.5) 08/06/19 17:07 Baso # (Auto) 0.06 K/uL (0-0.2) 08/06/19 17:07 Hypersegmented Neuts 2+ 08/06/19 17:07 PT 44.9 Seconds (9.0-12.0) H 08/06/19 17:07 INR 4.9 (0.9-1.1) H 08/06/19 17:07 VBG pH 7.39 (7.36-7.41) 08/06/19 19:46 VBG pCO2 38 mmHg (38-50) 08/06/19 19:46 VBG pO2 25 mmHg 08/06/19 19:46 VBG HCO3 23 mmol/L 08/06/19 19:46 VBG O2 Saturation < 60.0 % 08/06/19 19:46 VBG Base Excess -2.1 mEq/L 08/06/19 19:46 Barometric Pressure 736.3 mm/Hg 08/06/19 19:46 Sodium 144 mmol/L (136-145) 08/06/19 17:07 Potassium 3.9 mmol/L (3.5-5.1) 08/06/19 17:07 Chloride 113 mmol/L (98-107) H 08/06/19 17:07 Carbon Dioxide 22 mmol/L (21-32) 08/06/19 17:07 Anion Gap 9.0 (3-11) 08/06/19 17:07 BUN 35 mg/dl (7-18) H 08/06/19 17:07 Creatinine 1.44 mg/dl (0.6-1.4) H 08/06/19 17:07 Est Cr Clr Drug Dosing 38.7 ml/min 08/06/19 17:07 Est GFR ( Amer) 52.8 08/06/19 17:07 Est GFR (Non-Af Amer) 45.5 08/06/19 17:07 BUN/Creatinine Ratio 24.2 (10-20) H 08/06/19 17:07 Glucose 97 mg/dl (70-99) 08/06/19 17:07 POC Glucose 167 (70-99) H 08/06/19 22:00 Lactate 1.6 mmol/L (0.4-2.0) 08/06/19 17:07 Calcium 8.7 mg/dl (8.5-10.1) 08/06/19 17:07 Magnesium 1.9 mg/dl (1.8-2.4) 08/06/19 22:27 Total Bilirubin 0.8 mg/dl (0.2-1) 08/06/19 17:07 Direct Bilirubin < 0.1 mg/dl (0-0.2) 08/06/19 17:07 AST 24 U/L (15-37) 08/06/19 17:07 ALT 21 U/L (12-78) 08/06/19 17:07 Alkaline Phosphatase 99 U/L (45-117) 08/06/19 17:07 Troponin I < 0.015 ng/ml (0-0.045) 08/06/19 22:27 NT-Pro-B Natriuret Pep 9559 pg/ml (0-1800) H 08/06/19 17:07 Total Protein 7.1 gm/dl (6.4-8.2) 08/06/19 17:07 Albumin 3.4 gm/dl (3.4-5.0) 08/06/19 17:07 Diagnostic Findings [facility] [place], [place] [phone] XRay Report Patient: QUIRINO HOPE Date: 08/06/19 MR#: [id number]: [address] Acct ID:[id number]: [address] Date: 1940City Zip: [place] [address] Age: 79Location: ED Sex: M Room/Bed: Att Phy:Diagnosis: LOW OXYGEN Rosalind Phy: Emeterio Hardin MDService Date: 08/06/19 Fam Phy:Interpreting Phy: Paul Juarez Admit Phy: Ordering Phy: Tony Diaz M.D. cc: ~ XR chest 1V portable HISTORY: 79 years-old Male Hypoxia acute hypoxia COMPARISON: Chest radiographs 03/19/2018 TECHNIQUE: Portable AP view of the chest FINDINGS: Cardiomediastinal and hilar silhouettes are unchanged. Calcified plaque of the thoracic aortic arch. Mild interstitial coarsening has progressed from comparison. No pneumothorax, pleural effusion or overt pulmonary edema. Linear subsegmental left basilar opacities suggest atelectasis/scarring. Degenerative changes of the shoulders and spine. IMPRESSION: 1. Interstitial coarsening has progressed from comparison study and may reflect mild pulmonary edema, atypical infection or progressive fibrotic change. 2. Mild bibasilar opacities suggest atelectasis. ACT 112: Negative or not required by law. The above report was generated using voice recognition software. It may contain grammatical, syntax or spelling errors. Electronically signed by: Rahul Juarez M.D. 08/06/2019 6:06 PM Dictated: 08/06/19 1735 Transcribed: 08/06/19 1735 Code Status & VTE Plan Code Status Full code VTE Prophylaxis Plan VTE Prophylaxis will be ordered: Yes PG Care Time/CCT Total # of Minutes Spent Total Time Spent with Patient: Total time spent is greater than 50% in coordination of care (as documented) at patient's floor/unit and/or counseling patient:
[2019-08-06] MEDS ORDERED: MAGNESIUM HYDROXIDE SUSP 30 ML UDC PO PRN (21:59)
[2019-08-06] MEDS ORDERED: ALUMINUM/MAGNESIUM SUSP 30 ML UDC PO PRN (21:59)
[2019-08-06] MEDS ORDERED: GLUCAGON FOR INJ 1 MG VIAL SQ PRN (21:59)
[2019-08-06] MEDS ORDERED: GLUCOSE 10 TABS/TUBE PO PRN (21:59)
[2019-08-06] MEDS ORDERED: DEXTROSE 50% 50 ML SYRINGE IV PRN (21:59)
[2019-08-06] MEDS ORDERED: ACETAMINOPHEN 325 MG TAB PO PRN (21:59)
[2019-08-06] MEDS ORDERED: POLYETHYLENE (MIRALAX) 17 GM PACK PO PRN (21:59)
[2019-08-06] MEDS ORDERED: CARBOHYDRATES FOR HYPOGLYCEMIA PO PRN (21:59)
[2019-08-06] MEDS ORDERED: ONDANSETRON INJ 2 MG/ML 2 ML VIAL IV PRN (21:59)
[2019-08-06] MEDS ORDERED: GLUCOSE 40% GEL 15 GM TUBE PO PRN (21:59)
[2019-08-06 22:59] LABS: Magnesium 1.9 mg/dl (1.8-2.4); Troponin I < 0.015 ng/ml (0-0.045)
[2019-08-06] MEDS ORDERED: cefTRIAXone SODIUM 1,000 MG/50 ML BAG IV SCH (23:00)
[2019-08-06] MEDS: methylPREDNISolone 40 MG in SYRINGE 0 ML IV SCH (23:27)
[2019-08-06] MEDS: INSULIN ASPART 100 UNITS/ML 3 ML PEN SC SCH (23:34)
--- NOTE | 2019-08-07 00:47 | Emergency Department Note ---
Entered by Sruthi Monahan acting as a scribe for Tony Diaz MD ED Provider Note Name: QUIRINO HOPE Age: 79 Arrives Via: Walk-In Informant: Patient, niece CC: Respiratory problems HPI: 79M arrives for evaluation of respiratory problems. The patient states that he has had ongoing lung problems for the last 18 months which includes a low pulse ox and intermittent shortness of breath. Today he explains that he was walking up and down the stairs and vacuuming when he began to experience shortness of breath. He admits that he had to take about 4 breaks before he was finished with his tasks. He was visited at home by his niece today and told her that he was short of breath. She took his pulse ox and reported that it was in the 70s today which prompted his ED visit. ED nurse reports that his pulse ox was 82 in triage. The patient denies any other symptoms with the exception of recent weakness with movement in the last few days. He states that he has not had any recent falls. The patient does not have a history of any other lung problems or heart problems and has not had a recent chest x-ray. He states that he recently saw his PCP who did not say anything to him in regards to his SOB symptoms. Additionally he has never used O2 at home before. He denies chest pain, cough, fever, and leg swelling. The patient offers no additional concerns at this time. ROS: See above HPI for pertinent positives & negatives. A total of 10 systems reviewed and were otherwise negative. 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 Past Surgical History:Bladder surgery, cataract surgery, colonoscopy, cystoscopy, right hip replacement, testicular surgery Family History:Cancer, CAD Social History:Former smoker Home Medications:Aspirin, Clopidogrel, Hydroxyurea, Lisinopril, Metformin, Potassium, Prednisone, Propranolol, Warfarin Allergies:Sulfa, atorvastatin, cilostazol Vitals: * BP: 100/67 * Pulse: 54 * Resp: 18 * Temp: 36.4 C * O2 Sat: 83 L * Delivery: Room Air Physical Exam: GENERAL: Patient is un-well appearing and in mild distress. EYES: No scleral icterus, unremarkable pupils. ENT: Mucous membranes are dry, no nasal congestion. NECK: No masses appreciated, nomeningismus, trachea is midline. RESPIRATORY: Moderate dyspnea. Tachypneic. Dyspneic with diffuse crackles and tight lung sounds. CARDIOVASCULAR: Regular rate and rhythm.No rubs, gallops appreciated. Systolic murmur GASTROINTESTINAL: Abdomen soft, non-tender, no peritonitis.Bowel sounds positi ve.No masses appreciated. BACK: No midline tenderness, no CVA tenderness EXTREMITIES: Normal motion all extremities, no cyanosis, no edema. NEUROLOGIC: Alert and oriented, no acute motor or sensory deficits, no focal weakness, cranial nerves grossly intact. SKIN: No rash, no jaundice, no diaphoresis. Poor skin turgor. Slight bruise on right lower aguilar. ED Course: Prior Medical Record, Triage/Nursing Notes, Medications, Allergies reviewed by Me Vital Signs: reviewed and remarkable for Hypoxia Labs:Reviewed and remarkable for WBC 13, INR 4.9, LA 1.6 Interventions: Solumedrol 125mg IV, Duoneb 1 hr, Levaquin 750mg IV Imaging:See below EKG:Per My Interpretation: Indication SHOB: SB 50 bpm with 1st AV block, qtc 428. No Ectopy. No Ischemia. Compared to EKG 04/30/18, no significant changes. Reassessments/Times: * 1632: Past medical records reviewed. The patient was evaluated in room C07. A complete history and physical exam was performed. * 1709: O2 is continued. Nursing staff put O2 mask on him. His sats are in the upper 80s and states that he is feeling better. * 2055: I spoke to Dr. Valladares, [facility] Hospitalist who accepts the patient for admission. * 2103: I updated the patient on plan to admit. The patient verbally expressed understanding and agreement of the treatment plan. The patient will be evaluated for further treatment. Blood pressure:Normal.No Referral necessary Disposition:hospitalization Differentials:Differential: Infectious, Reactive Airway Disease, Pneumonia, Pneumothorax, COPD, CHF, ACS, Pulmonary Embolism, MSK, GI, Dissection, amongst other etiologies entertained. Medical Decision Makin yr old male with history of multiple cardiac issues and DVTs arrives with acute worsening shortness of breath. By exam this gentle man is dehydrated and lungs are very tight. Sating in the 70s on arrival and eventually requiring venturi mask just to get sats somewhat acceptable. He has CXR concerning for overload though as said, exam not consistent with this. Labs without evidence ACS nor EKG. Unlikely PE given anticoagulation history. Did seem quite improved with initial neb thus given full hour. Will treat as COPD exacerbation with IV steroids as well along with Levaquin for abx coverage though no clear pneumonia appreciated. VBG not very convincing, but he was on O2 and nebs for some time prior to this being done. Hospitalist consulted for further management. Impression: * Acute Respiratory Failure with Hypoxia Critical Care Time: I have personally spent greater than 40 minutes of critical care time in the direct management of this patient. Hypoxic Respiratory Failure requiring prolonged nebs and high flow oxygen. This was a life/limb threatening event. This includes time spent evaluating patient, direct bedside care, chart review, placing orders, interpretation of diagnostic studies, discussion with consultants, patient, and family members, as well as other required patient management activities. This 40 minutes is in excess of all separately billable procedures. The scribe's documentation has been prepared under my direction and personally reviewed by me in its entirety. I confirm that the note above accurately reflects all work, treatment, procedures, and medical decision making performed by me. Tony Diaz MD Impression & Plan Acute respiratory failure with hypoxia Past Med/Surg History Social History Preferred Language: Uzbek Communication Ability: Effective Shape Hand Required: No Beliefs That Will Affect Care: None Current Living Situation: Spouse Other Information That Helps Us Care for You: No Feels Safe at Home: Yes Safety Concerns: Feels Safe At This Time Smoking Status: Former smoker Do You Dip or Chew Tobacco: No ; Second Hand Exposure: No ; Tobacco Cessation Education Requested by Patient: No Hx Alcohol Use: No Hx Substance Use: No Results & Data Vital Signs Vital Signs - 24 hr 08/06/19 16:24 08/06/19 16:51 08/06/19 17:13 Temperature 36.4 C L Temperature Source Oral Pulse Rate 54 L Pulse Rate [Apical] Pulse Rhythm Regular Pulse Rhythm [Apical] Pulse Strength Normal Pulse Strength [Apical] Respiratory Rate 18 20 Respiratory Effort / Characteristics Non-Labored Spontaneous Spontaneous Respiratory Depth Normal Respiratory Pattern Regular Blood Pressure 100/67 Blood Pressure [Right Arm] Blood Pressure Mean 78 Blood Pressure Mean [Right Arm] Blood Pressure Position Sitting Blood Pressure Position [Right Arm] Pulse Oximetry 83 L 88 L 93 Oxygen Delivery Method Room Air Oxymask Oxymask Oxygen Flow Rate 7 6 Sepsis Recent Fever Within 48 Hours No Sepsis Action Taken by Nursing No Action Required 08/06/19 17:14 08/06/19 19:00 08/06/19 19:05 Temperature Temperature Source Pulse Rate Pulse Rate [Apical] 50 L 83 54 L Pulse Rhythm Pulse Rhythm [Apical] Regular Pulse Strength Pulse Strength [Apical] Normal Respiratory Rate 20 20 22 Respiratory Effort / Characteristics Spontaneous Spontaneous Respiratory Depth Normal Normal Respiratory Pattern Blood Pressure Blood Pressure [Right Arm] 124/62 142/92 H Blood Pressure Mean Blood Pressure Mean [Right Arm] 82 108 Blood Pressure Position Blood Pressure Position [Right Arm] Lying Pulse Oximetry 93 93 89 L Oxygen Delivery Method Oxymask Oxymask Oxymask Oxygen Flow Rate 6 7 7 Sepsis Recent Fever Within 48 Hours Sepsis Action Taken by Nursing 08/06/19 20:30 Temperature Temperature Source Pulse Rate Pulse Rate [Apical] 75 Pulse Rhythm Pulse Rhythm [Apical] Regular Pulse Strength Pulse Strength [Apical] Normal Respiratory Rate 18 Respiratory Effort / Characteristics Non-Labored Respiratory Depth Normal Respiratory Pattern Blood Pressure Blood Pressure [Right Arm] 144/75 H Blood Pressure Mean Blood Pressure Mean [Right Arm] 98 Blood Pressure Position Blood Pressure Position [Right Arm] Lying Pulse Oximetry 93 Oxygen Delivery Method Oxymask Oxygen Flow Rate 7 Sepsis Recent Fever Within 48 Hours Sepsis Action Taken by Nursing Laboratory Data Result diagrams: 08/06/19 17:07 08/06/19 17:07 Lab Results 08/06/19 08/06/19 08/06/19 Range/Units 17:07 17:07 17:07 WBC 13.28 H (4.8-10.8) K/uL RBC 3.90 L (4.7-6.1) M/uL Hgb 13.2 L (14.0-18.0) g/dL Hct 42.1 (42-52) % MCV 107.9 H (80-100) fL MCH 33.8 (25-34) pg MCHC 31.4 L (32-36) g/dL RDW Std Deviation 82.8 H (36.4-46.3) fL RDW Coeff of Dru 20.8 H (11.5-14.5) % Plt Count 234 (130-400) K/uL MPV 12.3 H (7.4-10.4) fL Immature Gran % (Auto) 0.3 % Neut % (Auto) 82.4 % Lymph % (Auto) 11.0 % [place] % (Auto) 5.2 % Eos % (Auto) 0.6 % Baso % (Auto) 0.5 % Immature Gran # (Auto) 0.04 H (0.00-0.02) K/uL Neut # (Auto) 10.95 H (1.4-6.5) K/uL Lymph # (Auto) 1.46 (1.2-3.4) K/uL [place] # (Auto) 0.69 H (0.11-0.59) K/uL Eos # (Auto) 0.08 (0-0.5) K/uL Baso # (Auto) 0.06 (0-0.2) K/uL Hypersegmented Neuts 2+ PT 44.9 H (9.0-12.0) Seconds INR 4.9 H (0.9-1.1) VBG pH (7.36-7.41) VBG pCO2 (38-50) mmHg VBG pO2 mmHg VBG HCO3 mmol/L VBG O2 Saturation % VBG Base Excess mEq/L Barometric Pressure mm/Hg Sodium 144 (136-145) mmol/L Potassium 3.9 (3.5-5.1) mmol/L Chloride 113 H (98-107) mmol/L Carbon Dioxide 22 (21-32) mmol/L Anion Gap 9.0 (3-11) BUN 35 H (7-18) mg/dl Creatinine 1.44 H (0.6-1.4) mg/dl Est Cr Clr Drug Dosing 38.7 ml/min Est GFR ( Amer) 52.8 Est GFR (Non-Af Amer) 45.5 BUN/Creatinine Ratio 24.2 H (10-20) Glucose 97 (70-99) mg/dl Lactate (0.4-2.0) mmol/L Calcium 8.7 (8.5-10.1) mg/dl Magnesium 2.0 (1.8-2.4) mg/dl Total Bilirubin 0.8 (0.2-1) mg/dl Direct Bilirubin < 0.1 (0-0.2) mg/dl AST 24 (15-37) U/L ALT 21 (12-78) U/L Alkaline Phosphatase 99 (45-117) U/L Troponin I < 0.015 (0-0.045) ng/ml NT-Pro-B Natriuret Pep 9559 H (0-1800) pg/ml Total Protein 7.1 (6.4-8.2) gm/dl Albumin 3.4 (3.4-5.0) gm/dl 08/06/19 08/06/19 Range/Units 17:07 19:46 WBC (4.8-10.8) K/uL RBC (4.7-6.1) M/uL Hgb (14.0-18.0) g/dL Hct (42-52) % MCV (80-100) fL MCH (25-34) pg MCHC (32-36) g/dL RDW Std Deviation (36.4-46.3) fL RDW Coeff of Dru (11.5-14.5) % Plt Count (130-400) K/uL MPV (7.4-10.4) fL Immature Gran % (Auto) % Neut % (Auto) % Lymph % (Auto) % [place] % (Auto) % Eos % (Auto) % Baso % (Auto) % Immature Gran # (Auto) (0.00-0.02) K/uL Neut # (Auto) (1.4-6.5) K/uL Lymph # (Auto) (1.2-3.4) K/uL [place] # (Auto) (0.11-0.59) K/uL Eos # (Auto) (0-0.5) K/uL Baso # (Auto) (0-0.2) K/uL Hypersegmented Neuts PT (9.0-12.0) Seconds INR (0.9-1.1) VBG pH 7.39 (7.36-7.41) VBG pCO2 38 (38-50) mmHg VBG pO2 25 mmHg VBG HCO3 23 mmol/L VBG O2 Saturation < 60.0 % VBG Base Excess -2.1 mEq/L Barometric Pressure 736.3 mm/Hg Sodium (136-145) mmol/L Potassium (3.5-5.1) mmol/L Chloride (98-107) mmol/L Carbon Dioxide (21-32) mmol/L Anion Gap (3-11) BUN (7-18) mg/dl Creatinine (0.6-1.4) mg/dl Est Cr Clr Drug Dosing ml/min Est GFR ( Amer) Est GFR (Non-Af Amer) BUN/Creatinine Ratio (10-20) Glucose (70-99) mg/dl Lactate 1.6 (0.4-2.0) mmol/L Calcium (8.5-10.1) mg/dl Magnesium (1.8-2.4) mg/dl Total Bilirubin (0.2-1) mg/dl Direct Bilirubin (0-0.2) mg/dl AST (15-37) U/L ALT (12-78) U/L Alkaline Phosphatase (45-117) U/L Troponin I (0-0.045) ng/ml NT-Pro-B Natriuret Pep (0-1800) pg/ml Total Protein (6.4-8.2) gm/dl Albumin (3.4-5.0) gm/dl Administered Medications Ceftriaxone Sodium (Rocephin) 1,000 mg in 50 mls @ 100 mls/hr IV Q24H RA Stop: 08/13/19 22:59 Last Infusion: 08/07/19 00:19 Dose: 0 mls/hr Documented by: [id number] Admin: 08/06/19 23:27 Dose: 100 mls/hr Documented by: [id number] Methylprednisolone 40 mg/ (Syringe) 0.64 mls @ 1.5 mls/min IV Q8H RA Stop: 09/06/19 00:00 Last Admin: 08/06/19 23:27 Dose: 1.5 mls/min Documented by: [id number] Insulin Aspart (Novolog Flexpen) 0 units SC ACHS RA Stop: 09/06/19 07:29 Last Admin: 08/06/19 23:34 Dose: 3 units Documented by: [id number] Cosigned by: [id number] Miscellaneous (Order Awaiting Action) 1 ea N/A QS RA Stop: 09/06/19 00:00 Last Admin: 08/06/19 23:47 Dose: Not Given Documented by: [id number] Discontinued Medications Albuterol (Duoneb) 3 ml NEB NOW STA Stop: 08/06/19 16:42 Last Admin: 08/06/19 16:51 Dose: 3 ml Documented by: [id number] Albuterol (Duoneb) 12 ml NEB ONE ONE Stop: 08/06/19 18:28 Last Admin: 08/06/19 19:03 Dose: 12 ml Documented by: [id number] Levofloxacin/Dextrose (Levaquin/D5w) 750 mg in 150 mls @ 100 mls/hr IV NOW STA Stop: 08/06/19 21:12 Last Infusion: 08/06/19 21:42 Dose: 0 mls/hr Documented by: [id number] Admin: 08/06/19 20:09 Dose: 100 mls/hr Documented by: [id number] Methylprednisolone (Solumedrol) 125 mg IV NOW STA Stop: 08/06/19 18:28 Last Admin: 08/06/19 18:58 Dose: 125 mg Documented by: [id number] Imaging Data Radiologist's Impression: Radiology results as stated below per my review and the radiologist's interpretation: XR chest 1V portable HISTORY: 79 years-old Male Hypoxia acute hypoxia COMPARISON: Chest radiographs 03/19/2018 TECHNIQUE: Portable AP view of the chest FINDINGS: Cardiomediastinal and hilar silhouettes are unchanged. Calcified plaque of the t horacic aortic arch. Mild interstitial coarsening has progressed from comparison. No pneumothorax, pleural effusion or overt pulmonary edema. Linear subsegmental left basilar opacities suggest atelectasis/scarring. Degenerative changes of the shoulders and spine. IMPRESSION: 1. Interstitial coarsening has progressed from comparison study and may reflect mild pulmonary edema, atypical infection or progressive fibrotic change. 2. Mild bibasilar opacities suggest atelectasis. ACT 112: Negative or not required by law. The above report was generated using voice recognition software. It may contain grammatical, syntax or spelling errors. Electronically signed by: Rahul Juarez M.D. 08/06/2019 6:06 PM Discharge Plan Visit Data *Final* Discharge Date/Time: 08/06/19 22:05 Chief Complaint: Respiratory Problems Stated Complaint: LOW OXYGEN ED Provider: Tony Diaz Discharge Problem: Acute respiratory failure with hypoxia Patient Disposition: Admitted As Inpatient The scribe's documentation has been prepared under my direction and personally reviewed by me in its entirety. I confirm that the note above accurately reflects all work, treatment, procedures, and medical decision making performed by me.
[2019-08-07] MEDS ORDERED: FUROSEMIDE 40 MG in SYRINGE 0 ML IV STA (03:06)
[2019-08-07 04:37] LABS: Appearance Urine Clear (Clear); Bacteria Urine Automated Negative (Negative); Bilirubin Urine Negative (Negative); Blood Urine Negative (Negative); Color Urine Yellow; Glucose Urine UA Negative (Negative); Ketones Urine Negative (Negative); Leukocyte Esterase Urine Negative (Negative); Nitrite Urine Negative (Negative); Protein Urine 1+ (Negative); RBC Urine Automated 0-4 /hpf (0-4); Specific Gravity Urine 1.015 (1.000-1.030); Urobilinogen Urine Negative (Negative)
[2019-08-07] MEDS: ALBUT/IPRATROP 3MG/0.5MG NEB 3 ML VIAL NEB SCH ×4 (07:16→19:04)
[2019-08-07] MEDS: BUDESONIDE 0.5 MG/2 ML VIAL (PULMICORT) NEB SCH ×2 (07:16→19:04)
[2019-08-07 07:19] LABS: Hematocrit (blood only) 39.9 % (42-52); Hemoglobin 12.8 g/dL (14.0-18.0); Immature Granulocytes # (auto) 0.05 K/uL (0.00-0.02); Immature Granulocytes % (auto) 0.5 %; Lymphocytes # (auto) 0.82 K/uL (1.2-3.4); Lymphocytes % (auto) 7.6 %; Mean Corpuscular Hemoglobin 34.2 pg (25-34); Mean Corpuscular Hgb Conc 32.1 g/dL (32-36); Mean Corpuscular Volume 106.7 fL (80-100); Mean Platelet Volume 11.8 fL (7.4-10.4); Monocytes # (auto) 0.14 K/uL (0.11-0.59); Monocytes % (auto) 1.3 %; Neutrophils # (auto) 9.78 K/uL (1.4-6.5); Neutrophils % (auto) 90.6 %; Platelet Count 186 K/uL (130-400); RDW Coefficient of Variation 20.5 % (11.5-14.5); RDW Standard Deviation 80.2 fL (36.4-46.3); Red Blood Count 3.74 M/uL (4.7-6.1); White Blood Count 10.79 K/uL (4.8-10.8)
[2019-08-07 07:42] LABS: Partial Thromboplastin Ratio 1.4; Partial Thromboplastin Time 37.5 Seconds (21.0-31.0); Prothrombin Time 35.3 Seconds (9.0-12.0)
[2019-08-07 07:52] LABS: INR 3.8 (0.9-1.1)
[2019-08-07] MEDS: PROPRANOLOL HCL 60 MG LA CAP PO SCH (07:52)
[2019-08-07] MEDS: LISINOPRIL/HCTZ 20/25MG 1 TAB PO SCH (07:52)
[2019-08-07] MEDS: ASPIRIN 81 MG ECTAB PO SCH (07:53)
[2019-08-07] MEDS: CLOPIDOGREL BISULFATE 75 MG TAB PO SCH (07:53)
[2019-08-07 07:54] LABS: Macrocytosis Present; Schistocytes 1+
[2019-08-07 07:57] LABS: Albumin Level 2.9 gm/dl (3.4-5.0); BUN Creatinine Ratio 25.3 (10-20); Calcium 8.3 mg/dl (8.5-10.1); Creatinine Clr Calc Pharmacy 37.2 ml/min; Est GFR (African American) 52.8; Est GFR (Non-African American) 45.5; Potassium 3.9 mmol/L (3.5-5.1)
[2019-08-07 08:00] LABS: Albumin Globulin Ratio 0.8 (0.9-2); Bilirubin,Total 0.7 mg/dl (0.2-1); Globulin 3.6 gm/dl (2.5-4.0); Total Protein 6.5 gm/dl (6.4-8.2)
[2019-08-07 08:41] LABS: Estimated Average Glucose 137 mg/dl; Hemoglobin A1C 6.4 % (4.5-5.6)
[2019-08-07] MEDS ORDERED: HYDROXYUREA 500 MG CAP PO SCH ×2 (09:00→21:00)
[2019-08-07] MEDS: INSULIN ASPART 100 UNITS/ML 3 ML PEN SC SCH ×4 (09:25→20:44)
[2019-08-07] MEDS: methylPREDNISolone 40 MG in SYRINGE 0 ML IV SCH ×2 (09:27→16:22)
--- NOTE | 2019-08-07 13:34 | CT Scan Report ---
CT OF THE CHEST WITHOUT IV CONTRAST CLINICAL HISTORY: profound hypoxia, pneumoconiosis? COMPARISON STUDY: Chest CT June 05, 2011. Chest radiograph August 06, 2019. PET/CT April [address] DOSE: 403.34 mGy.cm TECHNIQUE: Axial images of the chest were obtained without IV contrast. Images were reviewed in the axial, sagittal, and coronal planes. IV contrast was not administered for this examination. Automat ed exposure control was utilized for the study. A dose lowering technique was utilized adhering to t he principles of ALARA. FINDINGS: The heart is mildly enlarged. There is extensive coronary artery calcification. There is m ild dilatation of the central pulmonary arteries. Mildly enlarged AP window lymph node measures 1.3 c m in short axis diameter. There is no pneumothorax. There are trace bilateral pleural effusions with associated airspace opacities which favor atelectasis. Left lower lobe and right upper lobe nodules a re unchanged from earlier CT T. These are benign given stability. Innumerable tiny nodules throughout the lungs are noted with interlobular septal thickening. The central airways are patent. There is no cavitation. Numerous sclerotic skeletal lesions are new since PET/CT of April 06, 2012. Several tho racic spine fractures are noted. These may be pathologic. There is mild emphysema. A few hypodense he patic lesions are unchanged from earlier exam. These are benign given stability. IMPRESSION: 1. Numerous sclerotic skeletal lesions with a few suspected pathologic fractures within the thoracic spine. These reflect blastic metastases which are new since PET/CT of April 06, 2012. 2. Innumerable tiny nodules throughout the lungs with interlobular septal thickening. The CT appearan ce is nonspecific and differential considerations include atypical appearance of pulmonary edema, aty pical infectious process, alveolar proteinosis, drug induced pneumonitis and granulomatous processes. 2. Mild dilatation of the central pulmonary arteries which suggests pulmonary arterial hypertension. ACT 112: Negative or not required by law. Electronically signed by: Andi Oliver M.D. 08/07/2019 1:32 PM
--- NOTE | 2019-08-07 14:40 | Pulmonary Consultation ---
Date of Consultation August 07, 2019 Assessment & Plan (1) Acute respiratory failure with hypoxia: --Acute hypoxic respiratory failure Etiology unclear, patient had no prodrome of any infectious process CT of the chest does show bilateral diffuse interstitial pattern with some bilateral lower lobe consolidation Continue with antibiotics, follow-up septic work-up, ESR, CRP, procalcitonin, urine Legionella, mycoplasma IgM Continue with O2 supplementation to keep O2 saturation between 88 to 92% Recommend 2D echo to see if there is heart failure component to it, follow-up BNP Continue with levofloxacin, DC Solu-Medrol -- [place] of the Lung stable since last 9 years, No further follow up needed. --Ex tobacco use Approximately 19-[id number]-cjgn smoking history Patient never had PFTs done in the past Patient needs PFT to be done as an outpatient on discharge --History of DVT in the left lower extremity On warfarin with supratherapeutic INR Monitor for any signs of bleeding --History of polycythemia On hydroxyurea Platelets within normal limit --History of bladder cancer Status post treatment Now on surveillance yearly cystoscopies --Questionable pathological spine fractures on CAT scan alk phos normal, calcium normal (2) History of tobacco use: (3) History of DVT (deep vein thrombosis): History of Present Illness Attending Physician: Ajay Kirkpatrick DO History of Present Illness 79-year-old male with past medical history of bladder cancer in 2004 status post BCG injections now only on surveillance yearly cystoscopy, hypertension, left lower extremity DVT on warfarin, dyslipidemia, thrombocytosis on hydroxyurea comes to the hospital because of worsening shortness of breath which has been going on since last 2 to 3 weeks. As per the patient he has been having exertional shortness of breath on walking approximately 50 yards since more than a year but it has in the last couple of weeks got worse. Patient denies any fever or chills. Denies any cough. Denies any phlegm. No runny nose or tearing from the eyes. No blurry vision. No dysuria, no diarrhea. No recent upper respiratory infection. Denies any orthopnea. No recent travel history. No sick contacts. Social history: [id number] smoking history approximately, quit 45 years ago, social alcohol, no illicit drug use. 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 Positive asbestos exposure history. No pets at home dogs or cat. No birds at home. Allergies Allergy/AdvReac Type Severity Reaction Status Date / Time Sulfa (Sulfonamide Allergy Intermediate HIVES Verified 08/06/19 17:29 Antibiotics) atorvastatin AdvReac Mild LEG CRAMPS Verified 08/06/19 17:29 cilostazol AdvReac Mild DIARRHEA Verified 08/06/19 17:29 Home Medications Home Medications Medication Instructions Recorded Confirmed Type aspirin 81 mg tablet,delayed 81 mg PO DAILY #30 tab 03/17/19 08/06/19 Rx release clopidogrel 75 mg tablet 75 mg PO DAILY #90 tab 07/06/19 08/06/19 Rx warfarin 5 mg tablet 5 mg PO DAILY #180 tab 07/06/19 08/06/19 Rx propranolol 60 mg capsule,24 60 mg PO DAILY #30 cap 07/15/19 08/06/19 Rx hr,extended release lisinopril 20 1 tab PO DAILY #90 tab 07/19/19 08/06/19 Rx mg-hydrochlorothiazide 25 mg tablet metformin 1,000 mg tablet 1,000 mg PO BID #180 tab 07/19/19 08/06/19 Rx potassium gluconate 595 mg PO DAILY 08/06/19 08/06/19 History prednisone 2 mg PO DAILY 08/06/19 08/06/19 History hydroxyurea 500 mg capsule 500 mg PO BID 08/07/19 History Patient History Social History Preferred Language: Ukrainian Communication Ability: Effective 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 Beliefs That Will Affect Care: None Current Living Situation: Spouse Other Information That Helps Us Care for You: No Feels Safe at Home: Yes Safety Concerns: Feels Safe At This Time Smoking Status: Former smoker Do You Dip or Chew Tobacco: No ; Second Hand Exposure: No ; Tobacco Cessation Education Requested by Patient: No Hx Alcohol Use: No Hx Substance Use: No Review of Systems Review of Systems: All systems reviewed & are unremarkable except as noted in HPI & below Physical Exam Physical Exam: Constitutional: No acute distress HEENT: EOMI, PERRLA, erythematous nasal mucosa, positive JVD 6 cm Respiratory system: Decreased air entry bilaterally, positive bilateral lower lobe crackles, no wheeze, no rhonchi CVS: S1-S2 positive, positive 4/ 6 pansystolic murmur best appreciated at the apex, bradycardia Abdomen: Soft, nontender, nondistended, positive bowel sounds x4 Extremities: +2 pulses bilaterally radialis/ dorsalis pedis, no cyanosis, no edema Neuro: Awake alert oriented x3 Psych: Normal mood and affect G/U: No [place] Skin: no rashes, warm and dry Lymphatic: no cervical or axillary lymphadenopathy Results & Data Vital Signs (Past 12 Hours) Vital Signs Temp Pulse Pulse Pulse Resp BP Pulse Ox 08/07/19 11:20 54 L 20 90 08/07/19 11:17 36.5 C 54 L 17 143/64 H 89 L 08/07/19 08:00 53 L 08/07/19 07:17 53 L 15 90 08/07/19 07:11 36.3 C L 53 L 18 128/65 90 08/07/19 03:05 36.3 C L 51 L 20 115/57 L 90 08/07/19 06:47 08/07/19 06:[address] chest without contrast personally reviewed: Patient has right upper lobe and left lower lobe nodule which is most likely hematomas and has been present for more than 10 years with no significant change. Patient has diffuse interstitial and alveolar opacities appreciated especially in the lower lobes. This may represent pneumonia, pulmonary edema, lymphatic spread of any cancer. PG Care Time/CCT Total # of Minutes Spent Total Time Spent with Patient: Total time spent is greater than 50% in coordination of care (as documented) at patient's floor/unit and/or counseling patient:
--- NOTE | 2019-08-07 16:22 | Hospitalist Progress Note ---
Date of Service August 07, 2019 Assessment & Plan (1) Acute respiratory failure with hypoxia: Admit to monitored bed to follow oxygenation. feels better today, no distress, less dyspnea on exertion still requiring 8L via mask, dropped to 83% on nasal canula appreciate pulmonary consult today will follow up ESR, CrP, procalcitonin unclear etiology of such profound hypoxia continue Solu Medrol at 40 q8, Levofloxacin, nebulizers echo with signs of pulmonary hypertension, RV dilated with reduced EF essentially with cor pulmonale but no significant pulmonary edema on exam (2) Arteriosclerotic cardiovascular disease (ASCVD): Continue to optimize control of hypertension, aspirin and clopidogrel to be continued. no chest pain or pressure (3) Benign hypertension: Continue aspirin 81 mg daily, and clopidogrel 75 mg daily. Continue Cipro/HCTZ 20/25, 1 p.o. daily. BP low normal today (4) Deep vein thrombosis of lower extremity: Hold warfarin tonight for INR 4.9. INR still high at 3.8 Resume warfarin 5 mg p.o. daily when INR is less than or equal to 2.5 (5) Diabetes mellitus: Hold metformin. Place on Accu-Cheks before meals and at bedtime with NovoLog coverage per scale monitor for hypoglycemia (6) Enlarged prostate with lower urinary tract symptoms (LUTS): Monitor for symptoms. On no direct treatment at this time. (7) Lesion of vertebra of thoracic spine present on computed tomography: questionable metastatic lesions calcium and alk phos normal no malignancy seen in lungs check PSA tomorrow would consider CT abd/pelvis with IV contrast if Cr improves a little Subjective patient says he feels better with Solu Medrol and breathing treatments on exam he does not have wheezing, no distress at rest per he and his daughter he has been short of breath for the past few weeks, getting worse gradually he has bee under stress with taking care of his who has stage IV cancer h/o working in [employer], lots of exposure to dust he recalls seeing Dr. Benitez about 10 years ago for work up for lung disease, had benign work up at that time? CT chest done due to profound hypoxia, requiring 8-12 liters via mask, on 6L NC sats drop to 83% CT shows innumerable lung nodules, broad differential also of note there are some blastic lesions in the thoracic spine, new compared to PET/CT from a few years ago has a h/o bladder CA but only ever had one tumor removed, subsequent cystoscopy has been normal no h/o prostate CA discussed that he would be in the hospital through the weekend to get pulmonary consult and work up the blastic lesions Review of Systems Review of Systems: All systems reviewed & are unremarkable except as noted in HPI & below Respiratory: + dyspnea on exertion; no cough and no dyspnea Cardiovascular: no chest pain and no edema Gastrointestinal: no abdominal pain, no nausea, no vomiting, no constipation and no diarrhea/loose stools Physical Exam Constitutional: WD/WN, vitals as above Eyes: PERRL, conjunctivae normal, anicteric sclerae ENMT: external ear and nose normal, oropharynx normal Neck: trachea midline, no thyromegaly Respiratory: normal respiratory effort; no respiratory distress Auscultation: lungs clear to auscultation bilaterally and + diminished lung sounds (bilaterally, most notable in bases) Cardiovascular: Rate/Rhythm: regular rate and regular rhythm Heart Sounds: normal S1, normal S2 and + murmur (systolic) Vessels: no JVD Extremities: normal capillary refill; no edema Gastrointestinal (Abdomen): normal bowel sounds, soft, nontender, no hepatosplenomegaly Musculoskeletal: no cyanosis or clubbing, extremities motor strength 5/5 Skin: no rashes, warm and dry Neurologic: patellar DTR's 2+ bilat, sensation intact and PERRL, EOMI, accommodation nl, no face palsy, no dysarthria Psychiatric: A+Ox3, euthymic affect Lymphatic: no cervical or axillary lymphadenopathy Results & Data Vital Signs (Past 12 Hours) Vital Signs Temp Pulse Pulse Pulse Resp BP Pulse Ox 08/07/19 15:21 51 L 18 89 L 08/07/19 15:17 36.5 C 51 L 20 124/60 91 08/07/19 11:20 54 L 20 90 08/07/19 11:17 36.5 C 54 L 17 143/64 H 89 L 08/07/19 08:00 53 L 08/07/19 07:17 53 L 15 90 08/07/19 07:11 36.3 C L 53 L 18 128/65 90 Laboratory Results Laboratory Results - last 24 hr 08/06/19 08/06/19 08/06/19 17:07 17:07 17:07 WBC 13.28 H RBC 3.90 L Hgb 13.2 L Hct 42.1 MCV 107.9 H MCH 33.8 MCHC 31.4 L RDW Std Deviation 82.8 H RDW Coeff of Dru 20.8 H Plt Count 234 MPV 12.3 H Immature Gran % (Auto) 0.3 Neut % (Auto) 82.4 Lymph % (Auto) 11.0 [place] % (Auto) 5.2 Eos % (Auto) 0.6 Baso % (Auto) 0.5 Immature Gran # (Auto) 0.04 H Neut # (Auto) 10.95 H Lymph # (Auto) 1.46 [place] # (Auto) 0.69 H Eos # (Auto) 0.08 Baso # (Auto) 0.06 Hypersegmented Neuts 2+ Macrocytosis Schistocytes PT 44.9 H INR 4.9 H APTT PTT Ratio VBG pH VBG pCO2 VBG pO2 VBG HCO3 VBG O2 Saturation VBG Base Excess Barometric Pressure Sodium 144 Potassium 3.9 Chloride 113 H Carbon Dioxide 22 Anion Gap 9.0 BUN 35 H Creatinine 1.44 H Est Cr Clr Drug Dosing 38.7 Est GFR ( Amer) 52.8 Est GFR (Non-Af Amer) 45.5 BUN/Creatinine Ratio 24.2 H Glucose 97 POC Glucose Estimat Average Glucose Hemoglobin A1c Lactate Calcium 8.7 Magnesium 2.0 Total Bilirubin 0.8 Direct Bilirubin < 0.1 AST 24 ALT 21 Alkaline Phosphatase 99 Troponin I < 0.015 NT-Pro-B Natriuret Pep 9559 H Total Protein 7.1 Albumin 3.4 Globulin Albumin/Globulin Ratio Urine Color Urine Appearance Urine pH Ur Specific [place] Urine Protein Urine Glucose (UA) Urine Ketones Urine Blood Urine Nitrite Urine Bilirubin Urine Urobilinogen Ur Leukocyte Esterase Urine WBC (Auto) Urine RBC (Auto) U Hyaline Cast (Auto) U Epithel Cells (Auto) Urine Bacteria (Auto) 08/06/19 08/06/19 08/06/19 17:07 19:46 22:00 WBC RBC Hgb Hct MCV MCH MCHC RDW Std Deviation RDW Coeff of Dru Plt Count MPV Immature Gran % (Auto) Neut % (Auto) Lymph % (Auto) [place] % (Auto) Eos % (Auto) Baso % (Auto) Immature Gran # (Auto) Neut # (Auto) Lymph # (Auto) [place] # (Auto) Eos # (Auto) Baso # (Auto) Hypersegmented Neuts Macrocytosis Schistocytes PT INR APTT PTT Ratio VBG pH 7.39 VBG pCO2 38 VBG pO2 25 VBG HCO3 23 VBG O2 Saturation < 60.0 VBG Base Excess -2.1 Barometric Pressure 736.3 Sodium Potassium Chloride Carbon Dioxide Anion Gap BUN Creatinine Est Cr Clr Drug Dosing Est GFR ( Amer) Est GFR (Non-Af Amer) BUN/Creatinine Ratio Glucose POC Glucose 167 H Estimat Average Glucose Hemoglobin A1c Lactate 1.6 Calcium Magnesium Total Bilirubin Direct Bilirubin AST ALT Alkaline Phosphatase Troponin I NT-Pro-B Natriuret Pep Total Protein Albumin Globulin Albumin/Globulin Ratio Urine Color Urine Appearance Urine pH Ur Specific [place] Urine Protein Urine Glucose (UA) Urine Ketones Urine Blood Urine Nitrite Urine Bilirubin Urine Urobilinogen Ur Leukocyte Esterase Urine WBC (Auto) Urine RBC (Auto) U Hyaline Cast (Auto) U Epithel Cells (Auto) Urine Bacteria (Auto) 08/06/19 08/07/19 08/07/19 22:27 04:25 06:47 WBC 10.79 RBC 3.74 L Hgb 12.8 L Hct 39.9 L MCV 106.7 H MCH 34.2 H MCHC 32.1 RDW Std Deviation 80.2 H RDW Coeff of Dru 20.5 H Plt Count 186 MPV 11.8 H Immature Gran % (Auto) 0.5 Neut % (Auto) 90.6 Lymph % (Auto) 7.6 [place] % (Auto) 1.3 Eos % (Auto) 0.0 Baso % (Auto) 0.0 Immature Gran # (Auto) 0.05 H Neut # (Auto) 9.78 H Lymph # (Auto) 0.82 L [place] # (Auto) 0.14 Eos # (Auto) 0.00 Baso # (Auto) 0.00 Hypersegmented Neuts Macrocytosis Present Schistocytes 1+ PT INR APTT PTT Ratio VBG pH VBG pCO2 VBG pO2 VBG HCO3 VBG O2 Saturation VBG Base Excess Barometric Pressure Sodium Potassium Chloride Carbon Dioxide Anion Gap BUN Creatinine Est Cr Clr Drug Dosing Est GFR ( Amer) Est GFR (Non-Af Amer) BUN/Creatinine Ratio Glucose POC Glucose Estimat Average Glucose Hemoglobin A1c Lactate Calcium Magnesium 1.9 Total Bilirubin Direct Bilirubin AST ALT Alkaline Phosphatase Troponin I < 0.015 NT-Pro-B Natriuret Pep Total Protein Albumin Globulin Albumin/Globulin Ratio Urine Color Yellow Urine Appearance Clear Urine pH 5.0 Ur Specific [place] 1.015 Urine Protein 1+ H Urine Glucose (UA) Negative Urine Ketones Negative Urine Blood Negative Urine Nitrite Negative Urine Bilirubin Negative Urine Urobilinogen Negative Ur Leukocyte Esterase Negative Urine WBC (Auto) 1-5 Urine RBC (Auto) 0-4 U Hyaline Cast (Auto) 1-5 U Epithel Cells (Auto) 5-10 H Urine Bacteria (Auto) Negative 08/07/19 08/07/19 08/07/19 06:47 06:47 06:47 WBC RBC Hgb Hct MCV MCH MCHC RDW Std Deviation RDW Coeff of Dru Plt Count MPV Immature Gran % (Auto) Neut % (Auto) Lymph % (Auto) [place] % (Auto) Eos % (Auto) Baso % (Auto) Immature Gran # (Auto) Neut # (Auto) Lymph # (Auto) [place] # (Auto) Eos # (Auto) Baso # (Auto) Hypersegmented Neuts Macrocytosis Schistocytes PT 35.3 H INR 3.8 H APTT 37.5 H PTT Ratio 1.4 VBG pH VBG pCO2 VBG pO2 VBG HCO3 VBG O2 Saturation VBG Base Excess Barometric Pressure Sodium 141 Potassium 3.9 Chloride 110 H Carbon Dioxide 22 Anion Gap 9.0 BUN 36 H Creatinine 1.44 H Est Cr Clr Drug Dosing 37.2 Est GFR ( Amer) 52.8 Est GFR (Non-Af Amer) 45.5 BUN/Creatinine Ratio 25.3 H Glucose 158 H POC Glucose Estimat Average Glucose 137 Hemoglobin A1c 6.4 H Lactate Calcium 8.3 L Magnesium Total Bilirubin 0.7 Direct Bilirubin AST 15 ALT 16 Alkaline Phosphatase 87 Troponin I NT-Pro-B Natriuret Pep Total Protein 6.5 Albumin 2.9 L Globulin 3.6 Albumin/Globulin Ratio 0.8 L Urine Color Urine Appearance Urine pH Ur Specific [place] Urine Protein Urine Glucose (UA) Urine Ketones Urine Blood Urine Nitrite Urine Bilirubin Urine Urobilinogen Ur Leukocyte Esterase Urine WBC (Auto) Urine RBC (Auto) U Hyaline Cast (Auto) U Epithel Cells (Auto) Urine Bacteria (Auto) 08/07/19 08/07/19 08/07/19 06:47 07:11 11:21 WBC RBC Hgb Hct MCV MCH MCHC RDW Std Deviation RDW Coeff of Dru Plt Count MPV Immature Gran % (Auto) Neut % (Auto) Lymph % (Auto) [place] % (Auto) Eos % (Auto) Baso % (Auto) Immature Gran # (Auto) Neut # (Auto) Lymph # (Auto) [place] # (Auto) Eos # (Auto) Baso # (Auto) Hypersegmented Neuts Macrocytosis Schistocytes PT INR APTT PTT Ratio VBG pH VBG pCO2 VBG pO2 VBG HCO3 VBG O2 Saturation VBG Base Excess Barometric Pressure Sodium Potassium Chloride Carbon Dioxide Anion Gap BUN Creatinine Est Cr Clr Drug Dosing Est GFR ( Amer) Est GFR (Non-Af Amer) BUN/Creatinine Ratio Glucose POC Glucose 166 H 164 H Estimat Average Glucose Hemoglobin A1c Lactate Calcium Magnesium Total Bilirubin Direct Bilirubin AST ALT Alkaline Phosphatase Troponin I < 0.015 NT-Pro-B Natriuret Pep Total Protein Albumin Globulin Albumin/Globulin Ratio Urine Color Urine Appearance Urine pH Ur Specific [place] Urine Protein Urine Glucose (UA) Urine Ketones Urine Blood Urine Nitrite Urine Bilirubin Urine Urobilinogen Ur Leukocyte Esterase Urine WBC (Auto) Urine RBC (Auto) U Hyaline Cast (Auto) U Epithel Cells (Auto) Urine Bacteria (Auto) 08/07/19 13:48 WBC RBC Hgb Hct MCV MCH MCHC RDW Std Deviation RDW Coeff of Dru Plt Count MPV Immature Gran % (Auto) Neut % (Auto) Lymph % (Auto) [place] % (Auto) Eos % (Auto) Baso % (Auto) Immature Gran # (Auto) Neut # (Auto) Lymph # (Auto) [place] # (Auto) Eos # (Auto) Baso # (Auto) Hypersegmented Neuts Macrocytosis Schistocytes PT INR APTT PTT Ratio VBG pH VBG pCO2 VBG pO2 VBG HCO3 VBG O2 Saturation VBG Base Excess Barometric Pressure Sodium Potassium Chloride Carbon Dioxide Anion Gap BUN Creatinine Est Cr Clr Drug Dosing Est GFR ( Amer) Est GFR (Non-Af Amer) BUN/Creatinine Ratio Glucose POC Glucose Estimat Average Glucose Hemoglobin A1c Lactate Calcium Magnesium Total Bilirubin Direct Bilirubin AST ALT Alkaline Phosphatase Troponin I < 0.015 NT-Pro-B Natriuret Pep Total Protein Albumin Globulin Albumin/Globulin Ratio Urine Color Urine Appearance Urine pH Ur Specific [place] Urine Protein Urine Glucose (UA) Urine Ketones Urine Blood Urine Nitrite Urine Bilirubin Urine Urobilinogen Ur Leukocyte Esterase Urine WBC (Auto) Urine RBC (Auto) U Hyaline Cast (Auto) U Epithel Cells (Auto) Urine Bacteria (Auto) Diagnostic Findings CT chest IMPRESSION: 1. Numerous sclerotic skeletal lesions with a few suspected pathologic fractures within the thoracic spine. These reflect blastic metastases which are new since PET/CT of April 06, 2012. 2. Innumerable tiny nodules throughout the lungs with interlobular septal thickening. The CT appearance is nonspecific and differential considerations include atypical appearance of pulmonary edema, atypical infectious process, alveolar proteinosis, drug induced pneumonitis and granulomatous processes. 2. Mild dilatation of the central pulmonary arteries which suggests pulmonary arterial hypertension. Medications Administered Current Inpatient Medications Acetaminophen (Tylenol) 650 mg PO Q4H PRN PRN Reason: Pain or Fever Stop: 09/05/19 21:58 Al Hydrox/Mg Hydrox/Simethicone (Maalox) 15 ml PO Q4H PRN PRN Reason: Dyspepsia Stop: 09/05/19 21:58 Albuterol (Duoneb) 3 ml NEB QIDR [facility] Stop: 09/06/19 06:59 Last Admin: 08/07/19 15:21 Dose: 3 ml Documented by: Aspirin (Ecotrin Ectab) 81 mg PO DAILY [facility] Stop: 09/06/19 08:59 Last Admin: 08/07/19 07:53 Dose: 81 mg Documented by: Budesonide (Pulmicort Respules) 0.5 mg NEB BIDR [facility] [place] Stop: 09/06/19 06:59 Last Admin: 08/07/19 07:16 Dose: 0.5 mg Documented by: Clopidogrel Bisulfate (Plavix) 75 mg PO DAILY [facility] [place] Stop: 09/06/19 08:59 Last Admin: 08/07/19 07:53 Dose: 75 mg Documented by: Dextrose (Dextrose 50%) 25 - 50 ml IV UD PRN; Protocol PRN Reason: Hypoglycemia Protocol Stop: 09/05/19 21:58 Glucagon (Glucagen) 1 mg SQ UD PRN; Protocol PRN Reason: Hypoglycemia Protocol Stop: 09/05/19 21:58 Glucose (Dex4 Glucose) 4 - 8 tabs PO UD PRN; Protocol PRN Reason: Hypoglycemia Protocol Stop: 09/05/19 21:58 Glucose (Glucose 40%) 15 - 30 gm PO UD PRN; Protocol PRN Reason: Hypoglycemia Protocol Stop: 09/05/19 21:58 Lisinopril/HCTZ (Prinzide 20/25mg) 1 tab PO DAILY [facility] [place] Stop: 09/06/19 08:59 Last Admin: 08/07/19 07:52 Dose: 1 tab Documented by: Hydroxyurea (Hydrea) 500 mg PO BIDM [facility] Stop: 09/06/19 16:59 Levofloxacin/Dextrose (Levaquin/D5w) 500 mg in 100 mls @ 100 mls/hr IV Q24H [facility] Stop: 08/12/19 21:59 Insulin Aspart (Novolog Flexpen) 0 units SC ACHS [facility] [place] Stop: 09/06/19 07:29 Last Admin: 08/07/19 13:32 Dose: 3 units Documented by: Magnesium Hydroxide (Milk Of Magnesia) 30 ml PO Q12H PRN PRN Reason: Constipation Stop: 09/05/19 21:58 Miscellaneous (Order Awaiting Action) 1 ea N/A QS [facility] Stop: 09/06/19 00:00 Last Admin: 08/07/19 09:28 Dose: Not Given Documented by: Miscellaneous (Carbohydrates For Hypoglycemia) 15 - 30 gm PO UD PRN PRN Reason: Hypoglycemia Protocol Stop: 09/05/19 21:58 Ondansetron HCl (Zofran) 4 mg IV Q6H PRN PRN Reason: Nausea Stop: 09/05/19 21:58 Polyethylene Glycol (Miralax Powder Packet) 17 gm PO DAILY PRN PRN Reason: Constipation Stop: 09/05/19 21:58 Propranolol HCl (Inderal La) 60 mg PO DAILY [facility] [place] Stop: 09/06/19 08:59 Last Admin: 08/07/19 07:52 Dose: 60 mg Documented by: PG Care Time/CCT Total # of Minutes Spent Total Time Spent with Patient: Total time spent is greater than 50% in coordination of care (as documented) at patient's floor/unit and/or counseling patient:
[2019-08-07 17:03] LABS: C Reactive Protein 0.31 mg/dl (0-0.29)
[2019-08-07] MEDS: FUROSEMIDE 40 MG TAB PO SCH (18:15)
[2019-08-07] MEDS: HYDROXYUREA 500 MG CAP PO SCH (18:15)
[2019-08-07] MEDS ORDERED: LEVOFLOXACIN/D5W 500 MG/100 ML BAG IV SCH (21:00)
[2019-08-08] MEDS: BUDESONIDE 0.5 MG/2 ML VIAL (PULMICORT) NEB SCH ×2 (07:05→19:25)
[2019-08-08] MEDS: ALBUT/IPRATROP 3MG/0.5MG NEB 3 ML VIAL NEB SCH ×4 (07:05→19:25)
[2019-08-08 07:40] LABS: Basophils # (auto) 0.02 K/uL (0-0.2); Basophils % (auto) 0.2 %; Eosinophils # (auto) 0.04 K/uL (0-0.5); Eosinophils % (auto) 0.3 %; Hemoglobin 12.8 g/dL (14.0-18.0); Immature Granulocytes # (auto) 0.08 K/uL (0.00-0.02); Immature Granulocytes % (auto) 0.6 %; Lymphocytes # (auto) 1.07 K/uL (1.2-3.4); Lymphocytes % (auto) 8.3 %; Mean Corpuscular Hemoglobin 34.1 pg (25-34); Mean Corpuscular Volume 106.7 fL (80-100); Mean Platelet Volume 11.8 fL (7.4-10.4); Monocytes # (auto) 0.56 K/uL (0.11-0.59); Monocytes % (auto) 4.3 %; Neutrophils # (auto) 11.17 K/uL (1.4-6.5); Neutrophils % (auto) 86.3 %; Platelet Count 188 K/uL (130-400); RDW Coefficient of Variation 20.8 % (11.5-14.5); RDW Standard Deviation 81.4 fL (36.4-46.3); Red Blood Count 3.75 M/uL (4.7-6.1); White Blood Count 12.94 K/uL (4.8-10.8)
[2019-08-08 07:50] LABS: Prothrombin Time 28.7 Seconds (9.0-12.0)
[2019-08-08 08:07] LABS: Macrocytosis Present
[2019-08-08] MEDS: LISINOPRIL/HCTZ 20/25MG 1 TAB PO SCH (08:21)
[2019-08-08] MEDS: FUROSEMIDE 40 MG TAB PO SCH (08:21)
[2019-08-08] MEDS: HYDROXYUREA 500 MG CAP PO SCH ×2 (08:21→17:36)
[2019-08-08] MEDS: PROPRANOLOL HCL 60 MG LA CAP PO SCH (08:22)
[2019-08-08] MEDS: CLOPIDOGREL BISULFATE 75 MG TAB PO SCH (08:22)
[2019-08-08] MEDS: ASPIRIN 81 MG ECTAB PO SCH (08:22)
[2019-08-08] MEDS: INSULIN ASPART 100 UNITS/ML 3 ML PEN SC SCH ×4 (08:24→21:30)
[2019-08-08 08:38] LABS: Albumin Globulin Ratio 0.9 (0.9-2); Albumin Level 2.9 gm/dl (3.4-5.0); BUN Creatinine Ratio 26.8 (10-20); Bilirubin,Total 0.7 mg/dl (0.2-1); Calcium 8.2 mg/dl (8.5-10.1); Creatinine Clr Calc Pharmacy 38.3 ml/min; Est GFR (African American) 54.6; Est GFR (Non-African American) 47.1; Globulin 3.3 gm/dl (2.5-4.0); Potassium 3.2 mmol/L (3.5-5.1); Prostate Specific Antigen 0.103 ng/ml (0-4); Total Protein 6.2 gm/dl (6.4-8.2)
[2019-08-08] MEDS ORDERED: FUROSEMIDE 40 MG in SYRINGE 0 ML IV ONE (09:30)
--- NOTE | 2019-08-08 11:32 | Pulmonology Progress Note ---
Date of Service August 08, 2019 Assessment & Plan (1) Acute respiratory failure with hypoxia: --Acute hypoxic respiratory failure Etiology unclear, patient had no prodrome of any infectious process CT of the chest does show bilateral diffuse interstitial pattern with some bila teral lower lobe consolidation. Kind of walking pneumonia like picture. Continue with antibiotics, follow-up septic work-up, Sputum culture, urine Legionella, mycoplasma IgM. ESR, CRP and procalcitonin are negative Continue with O2 supplementation to keep O2 saturation between 88 to 92% BNP was elevated at 8000. 2D echo shows good ejection fraction RVSP greater than 60 concentric left ventricular hypertrophy. 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 --Ex tobacco use Approximately [id number] smoking history Patient never had PFTs done in the past Patient needs PFT to be done as an outpatient on discharge --History of DVT in the left lower extremity On warfarin Monitor for any signs of bleeding --History of polycythemia On hydroxyurea Platelets within normal limit --History of bladder cancer Status post treatment Now on surveillance yearly cystoscopies --Questionable pathological spine fractures on CAT scan alk phos normal, calcium normal (2) History of tobacco use: (3) History of DVT (deep vein thrombosis): Subjective Patient seen and examined at bedside. No acute distress, no adverse events overnight. Patient states he feels better. He is not in any respiratory distress. But at the time of examination he was on 5 L saturating only 87% with heart rate of 53 at rest. Patient denies any chest pain. Bringing up some clear phlegm. No hemoptysis. No nausea or vomiting. No dizziness. No headache Denies any diarrhea. No abdominal pain. Review of Systems Review of Systems: All systems reviewed & are unremarkable except as noted in HPI & below Physical Exam Physical Exam: Constitutional: No acute distress HEENT: EOMI, PERRLA, erythematous nasal mucosa Respiratory system: Decreased air entry bilaterally, positive bilateral lower lobe crackles, no wheeze, no rhonchi CVS: S1-S2 positive, positive 4/ 6 pansystolic murmur best appreciated at the apex, bradycardia Abdomen: Soft, nontender, nondistended, positive bowel sounds x4 Extremities: +2 pulses bilaterally radialis/ dorsalis pedis, no cyanosis, no edema Neuro: Awake alert oriented x3 Psych: Normal mood and affect G/U: No [place] Skin: no rashes, warm and dry Lymphatic: no cervical or axillary lymphadenopathy Results & Data Vital Signs (Past 12 Hours) Vital Signs Temp Pulse Pulse Resp BP Pulse Ox 08/08/19 10:59 51 L 16 90 08/08/19 07:22 36.4 C L 51 L 20 151/77 H 90 08/08/19 07:05 51 L 16 90 08/08/19 03:40 36.4 C L 46 L 16 133/71 88 L 08/08/19 06:33 08/08/19 06:33 PG Care Time/CCT Total # of Minutes Spent Total Time Spent with Patient: Total time spent is greater than 50% in coordination of care (as documented) at patient's floor/unit and/or counseling patient:
--- NOTE | 2019-08-08 12:09 | Hospitalist Progress Note ---
Date of Service August 08, 2019 Assessment & Plan (1) Acute respiratory failure with hypoxia: feels better the past two days, no distress, no cough, no fever however, still requiring 8 to 10L via mask, drops to <80% on nasal canula when eating appreciate pulmonary consult unclear etiology of such profound hypoxia certainly has changes on CT with scarring, interstitial changes continue Solu Medrol at 40 q8, Levofloxacin, nebulizers echo with signs of pulmonary hypertension, RV dilated with reduced EF mild to moderate aortic stenosis but preserved LV EF essentially with cor pulmonale but no significant peripheral edema on exam responding well to Lasix, continue 40mg PO daily, 1500cc fluid restriction discussed with patient and his daughter over the phone patient has been short of breath for the past YEAR but did not seek medical attention clearly some of these changes have been evident for a long time, likely he was compensating for some chronic hypoxia will need close pulmonary follow up, PFT as outpatient obviously will need lower level of oxygen on discharge (2) Hypokalemia: due to Lasix, place on supplementation, check BMP in the morning (3) Arteriosclerotic cardiovascular disease (ASCVD): Continue to optimize control of hypertension, aspirin and clopidogrel to be continued. no chest pain or pressure for two days (4) Benign hypertension: Continue aspirin 81 mg daily, and clopidogrel 75 mg daily. Continue Cipro/HCTZ 20/25, 1 p.o. daily. BP low normal (5) Deep vein thrombosis of lower extremity: Hold warfarin for INR 4.9 on admission INR still high at 3.0 Resume warfarin 5 mg p.o. daily tomorrow (6) Diabetes mellitus: Hold metformin. Place on Accu-Cheks before meals and at bedtime with NovoLog coverage per scale monitor for hypoglycemia, no episodes while on steroids (7) Enlarged prostate with lower urinary tract symptoms (LUTS): Monitor for symptoms. urinating well today (8) Lesion of vertebra of thoracic spine present on computed tomography: questionable metastatic lesions calcium and alk phos normal no malignancy seen in lungs check PSA - 0.103 today, argues against metastatic prostate CA would consider CT abd/pelvis with IV contrast if Cr improves a little but hold off while using Lasix currently his lung issues are more pressing, continue to work up and treat the lung pathology recommend a referral to oncology as outpatient, no immediate needs while hospitalized as he is too hypoxic to undergo any procedures Subjective patient feels fine today, breathing is stable while resting in bed his saturations have been in the high 80's all day on 8-10 liters via mask he responded to the Lasix, making a lot of urine all day reviewed labs, Cr down a little at 1.3, K low at 3.[address] Hayden, still unclear what is causing his hypoxia certainly needs PFT as outpatient updated the patient's daughter over the phone patient is eating okay, not much of an appetite urinating normally, feels like he needs to have a BM no chest pain or pressure, no fever, no cough Review of Systems Review of Systems: All systems reviewed & are unremarkable except as noted in HPI & below Constitutional: + fatigue and + weakness; no fever Respiratory: + dyspnea on exertion; no cough, no dyspnea and no wheezing Cardiovascular: no chest pain and no edema Gastrointestinal: + constipation; no abdominal pain, no nausea, no vomiting and no diarrhea/loose stools Physical Exam Constitutional: WD/WN, vitals as above Eyes: PERRL, conjunctivae normal, anicteric sclerae ENMT: external ear and nose normal, oropharynx normal Neck: trachea midline, no thyromegaly Respiratory: normal respiratory effort; no respiratory distress Auscultation: lungs clear to auscultation bilaterally and + diminished lung sounds (bilaterally, most notable in bases) Cardiovascular: Rate/Rhythm: regular rate and regular rhythm Heart Sounds: normal S1, normal S2 and + murmur (systolic) Vessels: no JVD Extremities: normal capillary refill; no edema Gastrointestinal (Abdomen): normal bowel sounds, soft, nontender, no hepatosplenomegaly Musculoskeletal: no cyanosis or clubbing, extremities motor strength 5/5 Skin: no rashes, warm and dry Neurologic: patellar DTR's 2+ bilat, sensation intact and PERRL, EOMI, accommodation nl, no face palsy, no dysarthria Psychiatric: A+Ox3, euthymic affect Lymphatic: no cervical or axillary lymphadenopathy Results & Data Vital Signs (Past 12 Hours) Vital Signs Temp Pulse Pulse Resp BP Pulse Ox 08/08/19 10:59 51 L 16 90 08/08/19 07:22 36.4 C L 51 L 20 151/77 H 90 08/08/19 07:05 51 L 16 90 08/08/19 03:40 36.4 C L 46 L 16 133/71 88 L Laboratory Results Laboratory Results - last 24 hr 08/08/19 08/08/19 08/08/19 06:33 06:33 06:33 WBC 12.94 H RBC 3.75 L Hgb 12.8 L Hct 40.0 L MCV 106.7 H MCH 34.1 H MCHC 32.0 RDW Std Deviation 81.4 H RDW Coeff of Dru 20.8 H Plt Count 188 MPV 11.8 H Immature Gran % (Auto) 0.6 Neut % (Auto) 86.3 Lymph % (Auto) 8.3 Otero % (Auto) 4.3 Eos % (Auto) 0.3 Baso % (Auto) 0.2 Immature Gran # (Auto) 0.08 H Neut # (Auto) 11.17 H Lymph # (Auto) 1.07 L Otero # (Auto) 0.56 Eos # (Auto) 0.04 Baso # (Auto) 0.02 Hypersegmented Neuts 1+ Macrocytosis Present PT 28.7 H INR 3.0 H Sodium 140 Potassium 3.2 L D Chloride 105 Carbon Dioxide 26 Anion Gap 9.0 BUN 38 H Creatinine 1.40 Est Cr Clr Drug Dosing 38.3 Est GFR ( Amer) 54.6 Est GFR (Non-Af Amer) 47.1 BUN/Creatinine Ratio 26.8 H Glucose 100 H POC Glucose Calcium 8.2 L Total Bilirubin 0.7 AST 16 ALT 17 Alkaline Phosphatase 87 Total Protein 6.2 L Albumin 2.9 L Globulin 3.3 Albumin/Globulin Ratio 0.9 Prostate Specific Ag 0.103 08/08/19 08/08/19 08/08/19 07:24 11:18 16:25 WBC RBC Hgb Hct MCV MCH MCHC RDW Std Deviation RDW Coeff of Dru Plt Count MPV Immature Gran % (Auto) Neut % (Auto) Lymph % (Auto) Otero % (Auto) Eos % (Auto) Baso % (Auto) Immature Gran # (Auto) Neut # (Auto) Lymph # (Auto) Otero # (Auto) Eos # (Auto) Baso # (Auto) Hypersegmented Neuts Macrocytosis PT INR Sodium Potassium Chloride Carbon Dioxide Anion Gap BUN Creatinine Est Cr Clr Drug Dosing Est GFR ( Amer) Est GFR (Non-Af Amer) BUN/Creatinine Ratio Glucose POC Glucose 114 H 146 H 138 H Calcium Total Bilirubin AST ALT Alkaline Phosphatase Total Protein Albumin Globulin Albumin/Globulin Ratio Prostate Specific Ag 08/08/19 20:40 WBC RBC Hgb Hct MCV MCH MCHC RDW Std Deviation RDW Coeff of Dru Plt Count MPV Immature Gran % (Auto) Neut % (Auto) Lymph % (Auto) Otero % (Auto) Eos % (Auto) Baso % (Auto) Immature Gran # (Auto) Neut # (Auto) Lymph # (Auto) Otero # (Auto) Eos # (Auto) Baso # (Auto) Hypersegmented Neuts Macrocytosis PT INR Sodium Potassium Chloride Carbon Dioxide Anion Gap BUN Creatinine Est Cr Clr Drug Dosing Est GFR ( Amer) Est GFR (Non-Af Amer) BUN/Creatinine Ratio Glucose POC Glucose 117 H Calcium Total Bilirubin AST ALT Alkaline Phosphatase Total Protein Albumin Globulin Albumin/Globulin Ratio Prostate Specific Ag Medications Administered Current Inpatient Medications Acetaminophen (Tylenol) 650 mg PO Q4H PRN PRN Reason: Pain or Fever Stop: 09/05/19 21:58 Al Hydrox/Mg Hydrox/Simethicone (Maalox) 15 ml PO Q4H PRN PRN Reason: Dyspepsia Stop: 09/05/19 21:58 Albuterol (Duoneb) 3 ml NEB QIDR [facility] Stop: 09/06/19 06:59 Last Admin: 08/08/19 19:25 Dose: 3 ml Documented by: Aspirin (Ecotrin Ectab) 81 mg PO DAILY [facility] Stop: 09/06/19 08:59 Last Admin: 08/08/19 08:22 Dose: 81 mg Documented by: Budesonide (Pulmicort Respules) 0.5 mg NEB BIDR [facility] Stop: 09/06/19 06:59 Last Admin: 08/08/19 19:25 Dose: 0.5 mg Documented by: Clopidogrel Bisulfate (Plavix) 75 mg PO DAILY [facility] Stop: 09/06/19 08:59 Last Admin: 08/08/19 08:22 Dose: 75 mg Documented by: Dextrose (Dextrose 50%) 25 - 50 ml IV UD PRN; Protocol PRN Reason: Hypoglycemia Protocol Stop: 09/05/19 21:58 Furosemide (Lasix) 40 mg PO QAM [facility] Stop: 09/06/19 17:59 Last Admin: 08/08/19 08:21 Dose: 40 mg Documented by: Glucagon (Glucagen) 1 mg SQ UD PRN; Protocol PRN Reason: Hypoglycemia Protocol Stop: 09/05/19 21:58 Glucose (Dex4 Glucose) 4 - 8 tabs PO UD PRN; Protocol PRN Reason: Hypoglycemia Protocol Stop: 09/05/19 21:58 Glucose (Glucose 40%) 15 - 30 gm PO UD PRN; Protocol PRN Reason: Hypoglycemia Protocol Stop: 09/05/19 21:58 Lisinopril/HCTZ (Prinzide 20/25mg) 1 tab PO DAILY [facility] Stop: 09/06/19 08:59 Last Admin: 08/08/19 08:21 Dose: 1 tab Documented by: Hydroxyurea (Hydrea) 500 mg PO BIDM [facility] Stop: 09/06/19 16:59 Last Admin: 08/08/19 17:36 Dose: 500 mg Documented by: Levofloxacin/Dextrose (Levaquin/D5w) 750 mg in 150 mls @ 100 mls/hr IV Q2D@0900 [facility]; Protocol Stop: 08/13/19 08:59 Insulin Aspart (Novolog Flexpen) 0 units SC ACHS [facility] Stop: 09/06/19 07:29 Last Admin: 08/08/19 21:30 Dose: Not Given Documented by: Magnesium Hydroxide (Milk Of Magnesia) 30 ml PO Q12H PRN PRN Reason: Constipation Stop: 09/05/19 21:58 Miscellaneous (Carbohydrates For Hypoglycemia) 15 - 30 gm PO UD PRN PRN Reason: Hypoglycemia Protocol Stop: 09/05/19 21:58 Ondansetron HCl (Zofran) 4 mg IV Q6H PRN PRN Reason: Nausea Stop: 09/05/19 21:58 Polyethylene Glycol (Miralax Powder Packet) 17 gm PO DAILY PRN PRN Reason: Constipation Stop: 09/05/19 21:58 Potassium Chloride (Klor-Con M20) 20 meq PO TID [facility] Stop: 09/07/19 13:59 Last Admin: 08/08/19 19:52 Dose: 20 meq Documented by: Propranolol HCl (Inderal La) 60 mg PO DAILY [facility] Stop: 09/06/19 08:59 Last Admin: 08/08/19 08:22 Dose: 60 mg Documented by: PG Care Time/CCT Total # of Minutes Spent Total Time Spent with Patient: Total time spent is greater than 50% in coordination of care (as documented) at patient's floor/unit and/or counseling patient:
[2019-08-08] MEDS: POTASSIUM CHLORIDE 20 MEQ TABCR PO SCH ×2 (12:25→19:52)
[2019-08-09 06:49] LABS: Basophils # (auto) 0.02 K/uL (0-0.2); Basophils % (auto) 0.1 %; Eosinophils # (auto) 0.08 K/uL (0-0.5); Eosinophils % (auto) 0.6 %; Hematocrit (blood only) 42.8 % (42-52); Hemoglobin 13.7 g/dL (14.0-18.0); Immature Granulocytes # (auto) 0.05 K/uL (0.00-0.02); Immature Granulocytes % (auto) 0.3 %; Lymphocytes # (auto) 1.47 K/uL (1.2-3.4); Lymphocytes % (auto) 10.2 %; Mean Corpuscular Hemoglobin 34.5 pg (25-34); Mean Corpuscular Volume 107.8 fL (80-100); Mean Platelet Volume 10.6 fL (7.4-10.4); Monocytes # (auto) 0.56 K/uL (0.11-0.59); Monocytes % (auto) 3.9 %; Neutrophils # (auto) 12.25 K/uL (1.4-6.5); Neutrophils % (auto) 84.9 %; Platelet Count 184 K/uL (130-400); RDW Coefficient of Variation 20.3 % (11.5-14.5); RDW Standard Deviation 81.1 fL (36.4-46.3); Red Blood Count 3.97 M/uL (4.7-6.1); White Blood Count 14.43 K/uL (4.8-10.8)
[2019-08-09 06:57] LABS: INR 1.8 (0.9-1.1); Prothrombin Time 17.4 Seconds (9.0-12.0)
[2019-08-09] MEDS: ALBUT/IPRATROP 3MG/0.5MG NEB 3 ML VIAL NEB SCH ×4 (07:15→19:06)
[2019-08-09] MEDS: BUDESONIDE 0.5 MG/2 ML VIAL (PULMICORT) NEB SCH ×2 (07:15→19:06)
[2019-08-09 07:20] LABS: Albumin Level 2.9 gm/dl (3.4-5.0); BUN Creatinine Ratio 24.7 (10-20); Calcium 8.2 mg/dl (8.5-10.1); Est GFR (African American) 40.6; Potassium 3.2 mmol/L (3.5-5.1)
[2019-08-09 07:23] LABS: Albumin Globulin Ratio 0.9 (0.9-2); Globulin 3.3 gm/dl (2.5-4.0); Total Protein 6.2 gm/dl (6.4-8.2)
--- NOTE | 2019-08-09 07:31 | XRay Report ---
XR chest 1V portable CLINICAL HISTORY: f/u dyspnea COMPARISON STUDY: 08/06/2019 FINDINGS: Trace pleural fluid both lung bases. Slight increase in findings of congestive failure/pulm onary edema. Pulmonary apices are clear. IMPRESSION: 1. Interval development of trace pleural fluid both lung bases. 2. Findings of pulmonary edema and/or congestive failure slightly increased from the prior study. ACT 112: Negative or not required by law. The above report was generated using voice recognition software. It may contain grammatical, syntax or spelling errors. Electronically signed by: Shun Batista M.D. 08/09/2019 7:30 AM
[2019-08-09] MEDS: POTASSIUM CHLORIDE 20 MEQ TABCR PO SCH ×3 (07:40→20:18)
[2019-08-09] MEDS: FUROSEMIDE 40 MG TAB PO SCH (07:41)
[2019-08-09] MEDS: HYDROXYUREA 500 MG CAP PO SCH ×2 (07:41→16:13)
[2019-08-09] MEDS: LISINOPRIL/HCTZ 20/25MG 1 TAB PO SCH (07:41)
[2019-08-09] MEDS: CLOPIDOGREL BISULFATE 75 MG TAB PO SCH (07:42)
[2019-08-09] MEDS: ASPIRIN 81 MG ECTAB PO SCH (07:42)
[2019-08-09] MEDS: PROPRANOLOL HCL 60 MG LA CAP PO SCH (07:42)
[2019-08-09] MEDS: INSULIN ASPART 100 UNITS/ML 3 ML PEN SC SCH ×4 (07:45→20:22)
[2019-08-09 08:05] LABS: Anisocytosis Present; Hypogranular Neutrophils 1+
[2019-08-09] MEDS ORDERED: ENOXAPARIN 1 MG/KG SQ SCH (08:15)
[2019-08-09] MEDS ORDERED: LEVOFLOXACIN/D5W 750 MG/150 ML BAG IV SCH (09:00)
[2019-08-09] MEDS: ENOXAPARIN INJ 60 MG/0.6 ML SYR SQ SCH (09:06)
--- NOTE | 2019-08-09 11:53 | Hospitalist Progress Note ---
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 -consider bronchoscopy and likely biopsies if hypoxemia improves as per Pulm -restart IV SOlu Medrol 60mg daily -check MARY, anti CCP, ESR, CRP, Quantiferon Gold, CPK, Procalcitonin -stop abx if Procal negative as per Pulm -continue O2, nebs -f/u Mycoplasma, Legionella -continue Levaquin for now -follow BCxs-NGTD -dc propranolol used for tremor as may be worsening right sided heart failure ECHO with signs of pulmonary hypertension, RV dilated with reduced EF mild to moderate aortic stenosis but preserved LV EF essentially with cor pulmonale but no significant peripheral edema on exam -diuresed and no change in hypoxia, but now with rise in supervisor twisting department -will need close pulmonary follow up, PFT as outpatient -obviously will need lower level of oxygen requirement prior to discharge (2) IGGY (acute kidney injury): 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 Franchise Consultant mariama to 1.7 today with giving IV lasix yesterday -hold lasix -actually gave 500mL bolus NS later in day for hypotension -follow BMP (3) Hypokalemia: due to Lasix -continue replacement as needed -check BMP in the morning (4) Chronic diastolic CHF (congestive heart failure): Acute diastolic CHF, POA Diuresed and now supervisor twisting department rising -hold lasix -follow I/Os, daily weights, low sodium diet (5) Arteriosclerotic cardiovascular disease (ASCVD): stable -continue aspirin and clopidogrel (6) Benign hypertension: BPs low today -holding lisinopril/HCTZ, lasix -gave small bolus as above (7) Deep vein thrombosis of lower extremity: Held warfarin for INR 4.9 on admission INR now down to 1.9 Resumed warfarin 4 mg p.o. daily -bridge with Lovenox 1mg/kg q24h (renal dosing) -follow INR in AM (8) Diabetes mellitus: Hold metformin. Continue Accu-Cheks before meals and at bedtime with NovoLog coverage per scale monitor for hypoglycemia, no episodes while on steroids (9) Enlarged prostate with lower urinary tract symptoms (LUTS): Monitor for symptoms. urinating well (10) Lesion of vertebra of thoracic spine present on computed tomography: questionable metastatic lesions calcium and alk phos normal no malignancy seen in lungs checked PSA - 0.103 today, argues against metastatic prostate CA would consider CT abd/pelvis with IV contrast if Cr improves a little but hold off while using Lasix currently his lung issues are more pressing, continue to work up and treat the lung pathology recommend a referral to oncology as outpatient, no immediate needs while hospitalized as he is too hypoxic to undergo any procedures (11) Secondary pulmonary hypertension: secondary to lung disease -holding diuretics for now (12) Aortic valve stenosis: mild-mod on ECHO no indication for replacement (13) Aortic regurgitation: moderate on ECHO here -follow routinely as outpt (14) DVT prophylaxis: Lovenox, COumadin Dispo-remain on PCU Subjective Pt reports feeling "good" this AM and is eating his lunch on a HFNC. Denies much SOB despite requiring high amount of FiO2. Denies chest pain, no nausea. Not coughing much. No sputum production. Tele with SB, 1st deg AV block, rates in the 50s. I discussed his case with Pulmonology today Review of Systems Review of Systems: All systems reviewed & are unremarkable except as noted in HPI & below Physical Exam Constitutional: + thin; no acute distress Eyes: + anicteric sclerae ENMT: external ear and nose normal, oropharynx normal Neck: trachea midline, no thyromegaly Respiratory: + labored breathing and + tachypneic; no pursed lip breathing and no stridor Auscultation: + rales (diffusely); no wheezes Cardiovascular: Rate/Rhythm: regular rhythm and + bradycardic Heart Sounds: no murmur Extremities: no edema Chest (Breasts): Chest: normal inspection of chest Gastrointestinal (Abdomen): normal bowel sounds, soft, nontender, no hepatosplenomegaly Musculoskeletal: Extremities: extremities normal to inspection; no cyanosis and no clubbing Skin: no rashes, warm and dry Neurologic: moves all extremities and awake; no focal motor deficits Psychiatric: A+Ox3, euthymic affect Lymphatic: no lymphedema Results & Data Vital Signs (Past 12 Hours) Vital Signs Temp Pulse Resp BP Pulse Ox 08/09/19 11:19 36.4 C L 55 L 15 112/58 L 94 08/09/19 11:12 52 L 18 89 L 08/09/19 09:38 54 L 20 90 08/09/19 07:52 36.5 C 57 L 15 126/66 82 L 08/09/19 07:15 50 L 18 89 L 08/09/19 04:39 36.7 C 49 L 18 112/57 L 93 Laboratory Results 08/09/19 08/09/19 08/09/19 Range/Units 20:20 16:27 14:39 WBC (4.8-10.8) K/uL RBC (4.7-6.1) M/uL Hgb (14.0-18.0) g/dL Hct (42-52) % MCV (80-100) fL MCH (25-34) pg MCHC (32-36) g/dL RDW Std Deviation (36.4-46.3) fL RDW Coeff of Dru (11.5-14.5) % Plt Count (130-400) K/uL MPV (7.4-10.4) fL Immature Gran % (Auto) % Neut % (Auto) % Lymph % (Auto) % [place] % (Auto) % Eos % (Auto) % Baso % (Auto) % Immature Gran # (Auto) (0.00-0.02) K/uL Neut # (Auto) (1.4-6.5) K/uL Lymph # (Auto) (1.2-3.4) K/uL [place] # (Auto) (0.11-0.59) K/uL Eos # (Auto) (0-0.5) K/uL Baso # (Auto) (0-0.2) K/uL Hypogranular Neuts Anisocytosis ESR (0-14) mm/hr PT (9.0-12.0) Seconds INR (0.9-1.1) Sodium (136-145) mmol/L Potassium (3.5-5.1) mmol/L Chloride (98-107) mmol/L Carbon Dioxide (21-32) mmol/L Anion Gap (3-11) BUN (7-18) mg/dl Creatinine (0.6-1.4) mg/dl Est Cr Clr Drug Dosing ml/min Est GFR ( Amer) Est GFR (Non-Af Amer) BUN/Creatinine Ratio (10-20) Glucose (70-99) mg/dl POC Glucose 262 H 131 H (70-99) Calcium (8.5-10.1) mg/dl Total Bilirubin (0.2-1) mg/dl AST (15-37) U/L ALT (12-78) U/L Alkaline Phosphatase (45-117) U/L Total Creatine Kinase (39-308) U/L C-Reactive Protein (0-0.29) mg/dl Total Protein (6.4-8.2) gm/dl Albumin (3.4-5.0) gm/dl Globulin (2.5-4.0) gm/dl Albumin/Globulin Ratio (0.9-2) Procalcitonin (0-0.5) ng/ml Rheumatoid Factor Cycl Citrul Peptide IgG (0-4.99) U/ml MARY Screen KELVIN-1 Antibody SS-A/Ro Antibody SS-B/La Antibody NECK CUTTER Antibody Scl-70 Scleroderma Ab Anti-Centromere Ab TB Test (QFT) Gold Plus Pending TB Test (QFT) Nil Pending TB Test Mitogen - Nil Pending TB Test Ag - Nil 1 Pending TB Test Ag - Nil 2 Pending 08/09/19 08/09/19 08/09/19 Range/Units 14:39 14:39 14:39 WBC (4.8-10.8) K/uL RBC (4.7-6.1) M/uL Hgb (14.0-18.0) g/dL Hct (42-52) % MCV (80-100) fL MCH (25-34) pg MCHC (32-36) g/dL RDW Std Deviation (36.4-46.3) fL RDW Coeff of Dru (11.5-14.5) % Plt Count (130-400) K/uL MPV (7.4-10.4) fL Immature Gran % (Auto) % Neut % (Auto) % Lymph % (Auto) % [place] % (Auto) % Eos % (Auto) % Baso % (Auto) % Immature Gran # (Auto) (0.00-0.02) K/uL Neut # (Auto) (1.4-6.5) K/uL Lymph # (Auto) (1.2-3.4) K/uL [place] # (Auto) (0.11-0.59) K/uL Eos # (Auto) (0-0.5) K/uL Baso # (Auto) (0-0.2) K/uL Hypogranular Neuts Anisocytosis ESR (0-14) mm/hr PT (9.0-12.0) Seconds INR (0.9-1.1) Sodium (136-145) mmol/L Potassium (3.5-5.1) mmol/L Chloride (98-107) mmol/L Carbon Dioxide (21-32) mmol/L Anion Gap (3-11) BUN (7-18) mg/dl Creatinine (0.6-1.4) mg/dl Est Cr Clr Drug Dosing ml/min Est GFR ( Amer) Est GFR (Non-Af Amer) BUN/Creatinine Ratio (10-20) Glucose (70-99) mg/dl POC Glucose (70-99) Calcium (8.5-10.1) mg/dl Total Bilirubin (0.2-1) mg/dl AST (15-37) U/L ALT (12-78) U/L Alkaline Phosphatase (45-117) U/L Total Creatine Kinase 54 (39-308) U/L C-Reactive Protein 1.59 H (0-0.29) mg/dl Total Protein (6.4-8.2) gm/dl Albumin (3.4-5.0) gm/dl Globulin (2.5-4.0) gm/dl Albumin/Globulin Ratio (0.9-2) Procalcitonin (0-0.5) ng/ml Rheumatoid Factor Pending Cycl Citrul Peptide IgG < 0.40 (0-4.99) U/ml MARY Screen Pending KELVIN-1 Antibody Pending SS-A/Ro Antibody Pending SS-B/La Antibody Pending NECK CUTTER Antibody Pending Scl-70 Scleroderma Ab Pending Anti-Centromere Ab Pending TB Test (QFT) Gold Plus TB Test (QFT) Nil TB Test Mitogen - Nil TB Test Ag - Nil 1 TB Test Ag - Nil 2 08/09/19 08/09/19 08/09/19 Range/Units 14:39 14:39 11:16 WBC (4.8-10.8) K/uL RBC (4.7-6.1) M/uL Hgb (14.0-18.0) g/dL Hct (42-52) % MCV (80-100) fL MCH (25-34) pg MCHC (32-36) g/dL RDW Std Deviation (36.4-46.3) fL RDW Coeff of Dru (11.5-14.5) % Plt Count (130-400) K/uL MPV (7.4-10.4) fL Immature Gran % (Auto) % Neut % (Auto) % Lymph % (Auto) % [place] % (Auto) % Eos % (Auto) % Baso % (Auto) % Immature Gran # (Auto) (0.00-0.02) K/uL Neut # (Auto) (1.4-6.5) K/uL Lymph # (Auto) (1.2-3.4) K/uL [place] # (Auto) (0.11-0.59) K/uL Eos # (Auto) (0-0.5) K/uL Baso # (Auto) (0-0.2) K/uL Hypogranular Neuts Anisocytosis ESR 13 (0-14) mm/hr PT (9.0-12.0) Seconds INR (0.9-1.1) Sodium (136-145) mmol/L Potassium (3.5-5.1) mmol/L Chloride (98-107) mmol/L Carbon Dioxide (21-32) mmol/L Anion Gap (3-11) BUN (7-18) mg/dl Creatinine (0.6-1.4) mg/dl Est Cr Clr Drug Dosing ml/min Est GFR ( Amer) Est GFR (Non-Af Amer) BUN/Creatinine Ratio (10-20) Glucose (70-99) mg/dl POC Glucose 141 H (70-99) Calcium (8.5-10.1) mg/dl Total Bilirubin (0.2-1) mg/dl AST (15-37) U/L ALT (12-78) U/L Alkaline Phosphatase (45-117) U/L Total Creatine Kinase (39-308) U/L C-Reactive Protein (0-0.29) mg/dl Total Protein (6.4-8.2) gm/dl Albumin (3.4-5.0) gm/dl Globulin (2.5-4.0) gm/dl Albumin/Globulin Ratio (0.9-2) Procalcitonin 0.12 (0-0.5) ng/ml Rheumatoid Factor Cycl Citrul Peptide IgG (0-4.99) U/ml MARY Screen KELVIN-1 Antibody SS-A/Ro Antibody SS-B/La Antibody NECK CUTTER Antibody Scl-70 Scleroderma Ab Anti-Centromere Ab TB Test (QFT) Gold Plus TB Test (QFT) Nil TB Test Mitogen - Nil TB Test Ag - Nil 1 TB Test Ag - Nil 2 08/09/19 08/09/19 08/09/19 Range/Units 07:09 06:14 06:14 WBC (4.8-10.8) K/uL RBC (4.7-6.1) M/uL Hgb (14.0-18.0) g/dL Hct (42-52) % MCV (80-100) fL MCH (25-34) pg MCHC (32-36) g/dL RDW Std Deviation (36.4-46.3) fL RDW Coeff of Dru (11.5-14.5) % Plt Count (130-400) K/uL MPV (7.4-10.4) fL Immature Gran % (Auto) % Neut % (Auto) % Lymph % (Auto) % [place] % (Auto) % Eos % (Auto) % Baso % (Auto) % Immature Gran # (Auto) (0.00-0.02) K/uL Neut # (Auto) (1.4-6.5) K/uL Lymph # (Auto) (1.2-3.4) K/uL [place] # (Auto) (0.11-0.59) K/uL Eos # (Auto) (0-0.5) K/uL Baso # (Auto) (0-0.2) K/uL Hypogranular Neuts Anisocytosis ESR (0-14) mm/hr PT 17.4 H (9.0-12.0) Seconds INR 1.8 H (0.9-1.1) Sodium 138 (136-145) mmol/L Potassium 3.2 L (3.5-5.1) mmol/L Chloride 103 (98-107) mmol/L Carbon Dioxide 28 (21-32) mmol/L Anion Gap 7.0 (3-11) BUN 44 H (7-18) mg/dl Creatinine 1.79 H D (0.6-1.4) mg/dl Est Cr Clr Drug Dosing 29.0 ml/min Est GFR ( Amer) 40.6 Est GFR (Non-Af Amer) 35.0 BUN/Creatinine Ratio 24.7 H (10-20) Glucose 121 H (70-99) mg/dl POC Glucose 131 H (70-99) Calcium 8.2 L (8.5-10.1) mg/dl Total Bilirubin 1.0 (0.2-1) mg/dl AST 13 L (15-37) U/L ALT 16 (12-78) U/L Alkaline Phosphatase 82 (45-117) U/L Total Creatine Kinase (39-308) U/L C-Reactive Protein (0-0.29) mg/dl Total Protein 6.2 L (6.4-8.2) gm/dl Albumin 2.9 L (3.4-5.0) gm/dl Globulin 3.3 (2.5-4.0) gm/dl Albumin/Globulin Ratio 0.9 (0.9-2) Procalcitonin (0-0.5) ng/ml Rheumatoid Factor Cycl Citrul Peptide IgG (0-4.99) U/ml MARY Screen KELVIN-1 Antibody SS-A/Ro Antibody SS-B/La Antibody NECK CUTTER Antibody Scl-70 Scleroderma Ab Anti-Centromere Ab TB Test (QFT) Gold Plus TB Test (QFT) Nil TB Test Mitogen - Nil TB Test Ag - Nil 1 TB Test Ag - Nil 2 08/09/19 Range/Units 06:14 WBC 14.43 H (4.8-10.8) K/uL RBC 3.97 L (4.7-6.1) M/uL Hgb 13.7 L (14.0-18.0) g/dL Hct 42.8 (42-52) % MCV 107.8 H (80-100) fL MCH 34.5 H (25-34) pg MCHC 32.0 (32-36) g/dL RDW Std Deviation 81.1 H (36.4-46.3) fL RDW Coeff of Dru 20.3 H (11.5-14.5) % Plt Count 184 (130-400) K/uL MPV 10.6 H (7.4-10.4) fL Immature Gran % (Auto) 0.3 % Neut % (Auto) 84.9 % Lymph % (Auto) 10.2 % [place] % (Auto) 3.9 % Eos % (Auto) 0.6 % Baso % (Auto) 0.1 % Immature Gran # (Auto) 0.05 H (0.00-0.02) K/uL Neut # (Auto) 12.25 H (1.4-6.5) K/uL Lymph # (Auto) 1.47 (1.2-3.4) K/uL [place] # (Auto) 0.56 (0.11-0.59) K/uL Eos # (Auto) 0.08 (0-0.5) K/uL Baso # (Auto) 0.02 (0-0.2) K/uL Hypogranular Neuts 1+ Anisocytosis Present ESR (0-14) mm/hr PT (9.0-12.0) Seconds INR (0.9-1.1) Sodium (136-145) mmol/L Potassium (3.5-5.1) mmol/L Chloride (98-107) mmol/L Carbon Dioxide (21-32) mmol/L Anion Gap (3-11) BUN (7-18) mg/dl Creatinine (0.6-1.4) mg/dl Est Cr Clr Drug Dosing ml/min Est GFR ( Amer) Est GFR (Non-Af Amer) BUN/Creatinine Ratio (10-20) Glucose (70-99) mg/dl POC Glucose (70-99) Calcium (8.5-10.1) mg/dl Total Bilirubin (0.2-1) mg/dl AST (15-37) U/L ALT (12-78) U/L Alkaline Phosphatase (45-117) U/L Total Creatine Kinase (39-308) U/L C-Reactive Protein (0-0.29) mg/dl Total Protein (6.4-8.2) gm/dl Albumin (3.4-5.0) gm/dl Globulin (2.5-4.0) gm/dl Albumin/Globulin Ratio (0.9-2) Procalcitonin (0-0.5) ng/ml Rheumatoid Factor Cycl Citrul Peptide IgG (0-4.99) U/ml MARY Screen KELVIN-1 Antibody SS-A/Ro Antibody SS-B/La Antibody NECK CUTTER Antibody Scl-70 Scleroderma Ab Anti-Centromere Ab TB Test (QFT) Gold Plus TB Test (QFT) Nil TB Test Mitogen - Nil TB Test Ag - Nil 1 TB Test Ag - Nil 2 Diagnostic Findings CXR images personally reviewed by me and agree with the following report: XR chest 1V portable CLINICAL HISTORY: f/u dyspnea COMPARISON STUDY: 08/06/2019 FINDINGS: Trace pleural fluid both lung bases. Slight increase in findings of congestive failure/pulmonary edema. Pulmonary apices are clear. IMPRESSION: 1. Interval development of trace pleural fluid both lung bases. 2. Findings of pulmonary edema and/or congestive failure slightly increased from the prior study. PG Care Time/CCT Total # of Minutes Spent Total Time Spent with Patient: Total time spent is greater than 50% in coordination of care (as documented) at patient's floor/unit and/or counseling patient:
--- NOTE | 2019-08-09 14:39 | Pulmonology Progress Note ---
Date of Service August 09, 2019 Assessment & Plan (1) Idiopathic interstitial pneumonia: CT of his chest reviewed from 08/07/2019 which demonstrates diffuse micronodular changes with increased septal lines and minimal mediastinal adenopathy. There is also what appears to be a at least a partially calcified right upper lobe nodule. He also has evidence of pulmonary hypertension with a large pulmonary trunk and echocardiographic evidence of increased RVSP, decreased tricuspid annular systolic plane excursion and decreased RV function. It is unclear to me whether the lung findings are secondary to an acute or chronic process. I suspect this is likely an acute ON chronic process. The differential is broad in such an appearance of the chest on CT. This may represent anything from an atypical miliary type sarcoid to an infectious bronchiolitis to miliary TB or lymphaginorcinomatosis. This may also be a sequelae of his prior [employer] career. Ideally, we would perform a bronchoscopy and likely biopsies, however, he is anticoagulated and severely hypoxemic requiring high flow nasal cannula at this time. He does appear to have chronic disease on a systemic level as his albumin is low and his BMI is also on the lower side. I suspect that his pulmonary hypertension is likely secondary to lung disease. He does have a history of DVT and certainly the possibility of chronic thromboembolic pulmonary hypertension remains. The way to evaluate this would be with a V/Q scan, however, the utility in this would be very limited at this time given his underlying interstitial findings. I am sending off for some serological testing including an MARY screen, anti-HUMANITIES PROFESSOR, CK level and CCP. He may have a possible underlying autoimmunity or mixed connective tissue disorder, although I suspect this is less likely. I do think a trial of steroids at this time is warranted at a dose of 1 mg/kg daily of IV Solu-Medrol which would be approximately 60 mg. It is possible that these infiltrates that we are seeing may be reflective of an underlying infectious etiology such as a fungal or atypical bacterial pneumonia, however, at this time given the lack of improvement in the symptoms and the limited options that we have, I think a trial of steroids is warranted. I would recommend checking another procalcitonin today and if his procalcitonin remains negative, then I would discontinue his antibiotics. Certainly, if his oxygen levels continue to improve, them I could entertain the idea of bronchoscopy with biopsies at that time if the patient and family decide to go this route. Additionally, I would recommend discontinuing his propranolol that is been used for tremors as this could reduce his right-sided cardiac output. He is very bradycardic with heart rates in the low 50s. He does have underlying pulmonary hypertension which can be made worse with beta-braxton such as propranolol. (2) Acute respiratory failure with hypoxia: (3) History of tobacco use: (4) History of DVT (deep vein thrombosis): (5) Secondary pulmonary hypertension: Subjective Patient continues to feel poorly. He is very short of breath with minimal exertion. He is requiring 75% FiO2 and 35 L of oxygen. He denies any chest pain. He is able to eat small amounts of food. He denies any nausea or vomiting currently. Physical Exam Constitutional: Chronically ill-appearing. Bitemporal wasting noted. High flow nasal cannula in place. Eyes: PERRL, conjunctivae normal, anicteric sclerae ENMT: external ear and nose normal, oropharynx normal Respiratory: Diffuse Rales noted. Cardiovascular: Rate/Rhythm: regular rhythm Extremities: no edema Bradycardic. Gastrointestinal (Abdomen): normal bowel sounds, soft, nontender, no hepatosplenomegaly Psychiatric: Orientation: alert, oriented x [address] Results & Data Vital Signs (Past 12 Hours) Vital Signs Temp Pulse Resp BP Pulse Ox 08/09/19 11:19 97.5 F L 55 L 15 112/58 L 94 08/09/19 11:12 52 L 18 89 L 08/09/19 09:38 54 L 20 90 08/09/19 07:52 97.7 F 57 L 15 126/66 82 L 08/09/19 07:15 50 L 18 89 L 08/09/19 04:39 98.1 F 49 L 18 112/57 L 93 PG Care Time/CCT Total # of Minutes Spent Total Time Spent with Patient: Total time spent is greater than 50% in coordination of care (as documented) at patient's floor/unit and/or counseling patient:
[2019-08-09] MEDS: methylPREDNISolone 60 MG in SYRINGE 0 ML IV SCH (14:53)
[2019-08-09 15:32] LABS: C Reactive Protein 1.59 mg/dl (0-0.29)
[2019-08-09] MEDS ORDERED: SODIUM CHLORIDE 0.9% 1000ML 500 ML IV ONE (16:10)
[2019-08-09] MEDS: WARFARIN SOD 4 MG TAB PO SCH (16:12)
[2019-08-09] MEDS ORDERED: SODIUM CHLORIDE 0.9% 500 ML IV SCH ×2 (21:45→22:45)
--- NOTE | 2019-08-09 23:31 | Communication Note ---
Date of Service: August 09, 2019 Alerted to soft BPs by nursing overnight - SBP in 80s. Pt asymptomatic, sleeping in bed with hi-flow running. Chart review shows pt is here for acute hypoxic respiratory failure of unclear etiology/interstitial PNA - echo indicates increased pulmonary htn, possible rt sided heart failure, normal EF. Diuresing yesterday, fluid restriction. Pt received 500 ml bolus earlier today for low BP. I placed order for 500ml NSS bolus. Recheck BP. Upon my exam 1 hour later, SBP up to 111, improved. Pt indeed asleep, but easily arousable. Does not endorse any complaints, breathing feels good. No leg edema, abdomen is soft, nontender. Heart sounds consistent with blowing systolic murmur best heard over right parasternal area, RRR. Lung sounds are clear. Will continue to monitor vitals - do not think pt requires pressors at this time. Volume status seems tenuous, but will follow and if necessary administer additional bolus. Discussed with nursing. Senait Riley MD PGY3
[2019-08-10 06:48] LABS: INR 1.4 (0.9-1.1); Prothrombin Time 14.4 Seconds (9.0-12.0)
[2019-08-10 07:06] LABS: BUN Creatinine Ratio 33.4 (10-20); Calcium 7.9 mg/dl (8.5-10.1); Creatinine Clr Calc Pharmacy 26.6 ml/min; Est GFR (African American) 36.4; Est GFR (Non-African American) 31.4; Potassium 3.6 mmol/L (3.5-5.1)
[2019-08-10] MEDS: BUDESONIDE 0.5 MG/2 ML VIAL (PULMICORT) NEB SCH ×2 (07:17→19:01)
[2019-08-10] MEDS: ALBUT/IPRATROP 3MG/0.5MG NEB 3 ML VIAL NEB SCH ×4 (07:17→19:01)
[2019-08-10] MEDS: INSULIN ASPART 100 UNITS/ML 3 ML PEN SC SCH ×4 (08:00→21:32)
[2019-08-10] MEDS: methylPREDNISolone 60 MG in SYRINGE 0 ML IV SCH (08:01)
[2019-08-10] MEDS: ENOXAPARIN INJ 60 MG/0.6 ML SYR SQ SCH (08:02)
[2019-08-10] MEDS: CLOPIDOGREL BISULFATE 75 MG TAB PO SCH (08:02)
[2019-08-10] MEDS: ASPIRIN 81 MG ECTAB PO SCH (08:02)
[2019-08-10] MEDS: POTASSIUM CHLORIDE 20 MEQ TABCR PO SCH ×3 (08:02→21:30)
[2019-08-10] MEDS: HYDROXYUREA 500 MG CAP PO SCH ×2 (08:03→16:38)
[2019-08-10] MEDS ORDERED: SODIUM CHLORIDE 0.9% 1000ML 1,000 ML IV SCH (10:05)
--- NOTE | 2019-08-10 12:01 | Pulmonology Progress Note ---
Date of Service August 10, 2019 Assessment & Plan (1) Idiopathic interstitial pneumonia: 08/09: CT of his chest reviewed from 08/07/2019 which demonstrates diffuse micronodular changes with increased septal lines and minimal mediastinal adenopathy. There is also what appears to be a at least a partially calcified right upper lobe nodule. He also has evidence of pulmonary hypertension with a large pulmonary trunk and echocardiographic evidence of increased RVSP, decreased tricuspid annular systolic plane excursion and decreased RV function. It is unclear to me whether the lung findings are secondary to an acute or chronic process. I suspect this is likely an acute ON chronic process. The differential is broad in such an appearance of the chest on CT. This may represent anything from an atypical miliary type sarcoid to an infectious bronchiolitis to miliary TB or lymphaginorcinomatosis. This may also be a sequelae of his prior knowNormal career. Ideally, we would perform a bronchoscopy and likely biopsies, however, he is anticoagulated and severely hypoxemic requiring high flow nasal cannula at this time. He does appear to have chronic disease on a systemic level as his albumin is low and his BMI is also on the lower side. I suspect that his pulmonary hypertension is likely secondary to lung disease. He does have a history of DVT and certainly the possibility of chronic thromboembolic pulmonary hypertension remains. The way to evaluate this would be with a V/Q scan, however, the utility in this would be very limited at this time given his underlying interstitial findings. I am sending off for some serological testing including an MARY screen, anti-PASSENGER SOLICITOR, CK level and CCP. He may have a possible underlying autoimmunity or mixed connective tissue disorder, although I suspect this is less likely. I do think a trial of steroids at this time is warranted at a dose of 1 mg/kg daily of IV Solu-Medrol which would be approximately 60 mg. It is possible that these infiltrates that we are seeing may be reflective of an underlying infectious etiology such as a fungal or atypical bacterial pneumonia, however, at this time given the lack of improvement in the symptoms and the limited options that we have, I think a trial of steroids is warranted. I would recomme nd checking another procalcitonin today and if his procalcitonin remains negative, then I would discontinue his antibiotics. Certainly, if his oxygen levels continue to improve, them I could entertain the idea of bronchoscopy with biopsies at that time if the patient and family decide to go this route. Additionally, I would recommend discontinuing his propranolol that is been used for tremors as this could reduce his right-sided cardiac output. He is very bradycardic with heart rates in the low 50s. He does have underlying pulmonary hypertension which can be made worse with beta-braxton such as propranolol. 08/10: Continue IV Solu-Medrol. Discussed with nursing with regards to getting the patient out of the bed to a chair. Would recommend trying to ambulate him about the room a bit. It is okay to go up on his oxygen if needed and then back down once he is settled.Sputum cultures have been unrevealing. Again I do not think this is an acute infectious process and more likely an indolent acute on chronic process. I suspect he likely has some degree of interstitial lung disease with associated pulmonary hypertension. Serologies regarding autoimmunity are pending. Mycoplasma antibodies pending. Urine Legionella is negative.I did have a lengthy discussion with the daughter at bedside. He is a high risk patient for bronchoscopy at this time. He is going into worsening renal failure. And he is being rehydrated with some fluids. I would be very cautious with fluids given his pulmonary hypertension. I think he is in for a long road to recovery. (2) Acute respiratory failure with hypoxia: --Ex tobacco use Approximately [id number] smoking history Patient never had PFTs done in the past Patient needs PFT to be done as an outpatient on discharge --History of DVT in the left lower extremity On warfarin Monitor for any signs of bleeding --History of polycythemia On hydroxyurea Platelets within normal limit --History of bladder cancer Status post treatment Now on surveillance yearly cystoscopies --Questionable pathological spine fractures on CAT scan alk phos normal, calcium normal (3) History of tobacco use: (4) History of DVT (deep vein thrombosis): (5) Secondary pulmonary hypertension: Subjective Patient sitting up in the bed eating today. Does not not any acute distress. Denies any chest pain, fevers or chills. He still has shortness of breath with minimal exertion. He is currently on 30 L of high flow nasal cannula and 70% FiO2 saturating the low 90s. Physical Exam Eyes: PERRL, conjunctivae normal, anicteric sclerae ENMT: external ear and nose normal, oropharynx normal Cardiovascular: Rate/Rhythm: regular rhythm Extremities: no edema Gastrointestinal (Abdomen): normal bowel sounds, soft, nontender, no hepatosplenomegaly Psychiatric: Orientation: alert, oriented x [address] Results & Data Vital Signs (Past 12 Hours) Vital Signs Temp Pulse Pulse Resp BP BP Pulse Ox 08/10/19 11:10 56 L 19 91 08/10/19 11:09 56 L 19 91 08/10/19 10:58 98.1 F 56 L 19 120/54 L 91 08/10/19 08:00 51 L 08/10/19 07:36 51 L 16 96 08/10/19 07:20 51 L 16 96 08/10/19 07:03 98.1 F 51 L 15 117/56 L 95 08/10/19 06:01 51 L 15 92 08/10/19 06:00 50 L 14 102/55 L 92 08/10/19 05:30 54 L 16 110/46 L 92 08/10/19 05:01 48 L 14 96 08/10/19 05:00 48 L 16 107/55 L 96 08/10/19 04:31 49 L 14 96 08/10/19 04:30 49 L 13 96/54 L 97 08/10/19 04:01 51 L 13 96 08/10/19 04:00 51 L 14 115/58 L 96 08/10/19 03:41 53 L 14 92 08/10/19 03:40 53 L 15 102/52 L 92 08/10/19 03:39 52 L 14 93 08/10/19 03:33 53 L 14 90 08/10/19 03:30 54 L 14 94 08/10/19 03:16 53 L 13 90 08/10/19 03:15 53 L 14 106/53 L 90 08/10/19 03:01 53 L 13 89 L 08/10/19 03:00 53 L 12 97/49 L 89 L 08/10/19 02:46 54 L 13 90 08/10/19 02:45 52 L 14 104/53 L 90 08/10/19 02:31 54 L 13 90 08/10/19 02:30 54 L 13 115/54 L 90 08/10/19 02:16 84 L 08/10/19 02:15 101/51 L 85 L 08/10/19 02:05 55 L 20 88 L 08/10/19 02:01 58 L 12 90 08/10/19 02:00 55 L 17 109/56 L 90 08/10/19 01:47 53 L 12 90 08/10/19 01:46 53 L 13 89 L 08/10/19 01:45 52 L 13 88 L 08/10/19 01:31 53 L 13 88 L 08/10/19 01:30 53 L 14 86/49 L 89 L 08/10/19 01:16 53 L 13 88 L 08/10/19 01:15 55 L 13 94/49 L 89 L 08/10/19 01:01 53 L 13 88 L 08/10/19 01:00 49 L 13 95/49 L 88 L 08/10/19 00:46 54 L 15 93 08/10/19 00:45 55 L 14 95/51 L 94 08/10/19 00:31 55 L 14 89 L 08/10/19 00:30 56 L 13 90/48 L 90 08/10/19 00:16 56 L 18 93 08/10/19 00:15 52 L 22 110/56 L 93 08/10/19 00:08 54 L 15 95/52 L 92 08/10/19 00:03 98.1 F 53 L 53 L 14 102/49 L 102/49 L 91 08/10/19 00:01 56 L 14 91 08/10/19 00:00 54 L 17 85/50 L 91 PG Care Time/CCT Total # of Minutes Spent Total Time Spent with Patient: Total time spent is greater than 50% in coordination of care (as documented) at patient's floor/unit and/or counseling patient:
--- NOTE | 2019-08-10 12:31 | Hospitalist Progress Note ---
Date of Service August 10, 2019 Assessment & Plan (1) Acute respiratory failure with hypoxia: Idiopathic interstitial PNA, likely acute on chronic process Family reports patient has been short of breath for the past YEAR but did not seek medical attention Some of these changes have been evident for a long time, likely he was compensating for some chronic hypoxia Does not actually feel that dyspneic considering large FiO2 requirement -continue HFNC today and will keep POx>88%, weaning down FiO2 Appreciate pulmonary consult unclear etiology of such profound hypoxia, but w/ changes on CT with scarring, interstitial changes--> autoimmune vs atypical infectious, miliary sarcoidosis, miliary TB, or lymphanginocarcinomatosis. -consider bronchoscopy and likely biopsies if hypoxemia improves as per Pulm--> today says would be too high risk for bronch so will defer -continue IV SOlu Medrol 60mg daily -check MARY, anti CCP, Quantiferon Gold--> pending ESR, CRP, Procal all negative -dc abx as Procal negative -continue O2, nebs -f/u Mycoplasma, Legionella negative -follow BCxs-NGTD -dcd propranolol used for tremor as may be worsening right sided heart failure ECHO with signs of pulmonary hypertension, RV dilated with reduced EF mild to moderate aortic stenosis but preserved LV EF essentially with cor pulmonale but no significant peripheral edema on exam -diuresed and no change in hypoxia, but now with rise in electronic security technician again today, giving gentle IVFs -will need close pulmonary follow up, PFT as outpatient -obviously will need lower level of oxygen requirement prior to discharge -can mobilize today around room and chair (2) IGGY (acute kidney injury): 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 again to 1.9 today after receiving IV lasix on 08/08, continues to rise -continue to hold lasix, lisinopril/HCTZ - gave 500mL bolus NS for hypotension in the 80s systolic on 08/09 -follow BMP -start NS gentle IVFs today x 1 L at 80 mLs/hr (3) Hypokalemia: due to Lasix -continue replacement as needed -check BMP in the morning (4) Chronic diastolic CHF (congestive heart failure): Acute diastolic CHF, POA Diuresed and now electronic security technician rising as above -hold lasix -follow I/Os, daily weights, low sodium diet (5) Arteriosclerotic cardiovascular disease (ASCVD): stable -continue aspirin and clopidogrel (6) Benign hypertension: BPs improved todya, were too low -holding lisinopril/HCTZ, lasix (7) Deep vein thrombosis of lower extremity: Held warfarin for INR 4.9 on admission INR now down to 1.4 after holding coumadin Resumed warfarin 4 mg p.o. daily -continue to bridge with Lovenox 1mg/kg q24h (renal dosing) -follow INR in AM (8) Diabetes mellitus: Hold metformin. Continue Accu-Cheks before meals and at bedtime with NovoLog coverage per scale monitor for hypoglycemia, no episodes while on steroids (9) Enlarged prostate with lower urinary tract symptoms (LUTS): Monitor for symptoms. urinating well (10) Lesion of vertebra of thoracic spine present on computed tomography: questionable metastatic lesions calcium and alk phos normal no malignancy seen in lungs checked PSA - 0.103, argues against metastatic prostate CA would consider CT abd/pelvis with IV contrast if Cr improves currently his lung issues are more pressing, continue to work up and treat the lung pathology recommend a referral to oncology as outpatient, no immediate needs while hospitalized as he is too hypoxic to undergo any procedures (11) Secondary pulmonary hypertension: secondary to lung disease -holding diuretics for now, cautious use of IVFs for IGGY (12) Aortic valve stenosis: mild-mod on ECHO no indication for replacement (13) Aortic regurgitation: moderate on ECHO here -follow routinely as outpt (14) DVT prophylaxis: Lovenox, COumadin Dispo-remain on PCU PT/OT ordered Subjective Pt denies SOB and is eager to get out of bed and try to walk. He remains on HFNC and is just weaned down to 60% FiO2, 30L. Denies cough or CP, no abd pain or nausea. No BM in 2 days. Tele with SB rates 50-60s Review of Systems Review of Systems: All systems reviewed & are unremarkable except as noted in HPI & below Physical Exam Constitutional: + thin; no acute distress Eyes: + anicteric sclerae Neck: trachea midline, no thyromegaly Respiratory: no labored breathing, no pursed lip breathing and no stridor Auscultation: + rales (at bases, improved) and + rhonchi (a few scattered bilat); no wheezes Cardiovascular: Rate/Rhythm: regular rhythm and + bradycardic Heart Sounds: no murmur Extremities: no edema Chest (Breasts): Chest: normal inspection of chest Gastrointestinal (Abdomen): normal bowel sounds, soft, nontender, no hepatosplenomegaly Musculoskeletal: Extremities: extremities normal to inspection; no cyanosis and no clubbing Skin: no rashes, warm and dry Neurologic: moves all extremities and awake; no focal motor deficits Psychiatric: A+Ox3, euthymic affect Lymphatic: no lymphedema Results & Data Vital Signs (Past 12 Hours) Vital Signs Temp Pulse Pulse Resp BP BP Pulse Ox 08/10/19 11:10 56 L 19 91 08/10/19 11:09 56 L 19 91 08/10/19 10:58 36.7 C 56 L 19 120/54 L 91 08/10/19 08:00 51 L 08/10/19 07:36 51 L 16 96 08/10/19 07:20 51 L 16 96 08/10/19 07:03 36.7 C 51 L 15 117/56 L 95 08/10/19 06:01 51 L 15 92 08/10/19 06:00 50 L 14 102/55 L 92 08/10/19 05:30 54 L 16 110/46 L 92 08/10/19 05:01 48 L 14 96 08/10/19 05:00 48 L 16 107/55 L 96 08/10/19 04:31 49 L 14 96 08/10/19 04:30 49 L 13 96/54 L 97 08/10/19 04:01 51 L 13 96 08/10/19 04:00 51 L 14 115/58 L 96 08/10/19 03:41 53 L 14 92 08/10/19 03:40 53 L 15 102/52 L 92 08/10/19 03:39 52 L 14 93 08/10/19 03:33 53 L 14 90 08/10/19 03:30 54 L 14 94 08/10/19 03:16 53 L 13 90 08/10/19 03:15 53 L 14 106/53 L 90 08/10/19 03:01 53 L 13 89 L 08/10/19 03:00 53 L 12 97/49 L 89 L 08/10/19 02:46 54 L 13 90 08/10/19 02:45 52 L 14 104/53 L 90 08/10/19 02:31 54 L 13 90 08/10/19 02:30 54 L 13 115/54 L 90 08/10/19 02:16 84 L 08/10/19 02:15 101/51 L 85 L 08/10/19 02:05 55 L 20 88 L 08/10/19 02:01 58 L 12 90 08/10/19 02:00 55 L 17 109/56 L 90 08/10/19 01:47 53 L 12 90 08/10/19 01:46 53 L 13 89 L 08/10/19 01:45 52 L 13 88 L 08/10/19 01:31 53 L 13 88 L 08/10/19 01:30 53 L 14 86/49 L 89 L 08/10/19 01:16 53 L 13 88 L 08/10/19 01:15 55 L 13 94/49 L 89 L 08/10/19 01:01 53 L 13 88 L 08/10/19 01:00 49 L 13 95/49 L 88 L 08/10/19 00:46 54 L 15 93 08/10/19 00:45 55 L 14 95/51 L 94 08/10/19 00:31 55 L 14 89 L Laboratory Results 08/10/19 08/10/19 08/10/19 Range/Units 11:04 07:40 06:11 ESR (0-14) mm/hr PT (9.0-12.0) Seconds INR (0.9-1.1) Sodium 137 (136-145) mmol/L Potassium 3.6 (3.5-5.1) mmol/L Chloride 106 (98-107) mmol/L Carbon Dioxide 23 (21-32) mmol/L Anion Gap 8.0 (3-11) BUN 65 H (7-18) mg/dl Creatinine 1.96 H (0.6-1.4) mg/dl Est Cr Clr Drug Dosing 26.6 ml/min Est GFR ( Amer) 36.4 Est GFR (Non-Af Amer) 31.4 BUN/Creatinine Ratio 33.4 H (10-20) Glucose 125 H (70-99) mg/dl POC Glucose 178 H 118 H (70-99) Calcium 7.9 L (8.5-10.1) mg/dl Total Creatine Kinase (39-308) U/L C-Reactive Protein (0-0.29) mg/dl Procalcitonin (0-0.5) ng/ml Rheumatoid Factor Cycl Citrul Peptide IgG (0-4.99) U/ml MARY Screen KELVIN-1 Antibody SS-A/Ro Antibody SS-B/La Antibody DESKTOP ADMINISTRATOR Antibody Scl-70 Scleroderma Ab Anti-Centromere Ab Urine Legionella Ag TB Test (QFT) Gold Plus TB Test (QFT) Nil TB Test Mitogen - Nil TB Test Ag - Nil 1 TB Test Ag - Nil 2 08/10/19 08/09/19 08/09/19 Range/Units 06:11 20:20 16:27 ESR (0-14) mm/hr PT 14.4 H (9.0-12.0) Seconds INR 1.4 H (0.9-1.1) Sodium (136-145) mmol/L Potassium (3.5-5.1) mmol/L Chloride (98-107) mmol/L Carbon Dioxide (21-32) mmol/L Anion Gap (3-11) BUN (7-18) mg/dl Creatinine (0.6-1.4) mg/dl Est Cr Clr Drug Dosing ml/min Est GFR ( Amer) Est GFR (Non-Af Amer) BUN/Creatinine Ratio (10-20) Glucose (70-99) mg/dl POC Glucose 262 H 131 H (70-99) Calcium (8.5-10.1) mg/dl Total Creatine Kinase (39-308) U/L C-Reactive Protein (0-0.29) mg/dl Procalcitonin (0-0.5) ng/ml Rheumatoid Factor Cycl Citrul Peptide IgG (0-4.99) U/ml MARY Screen KELVIN-1 Antibody SS-A/Ro Antibody SS-B/La Antibody DESKTOP ADMINISTRATOR Antibody Scl-70 Scleroderma Ab Anti-Centromere Ab Urine Legionella Ag TB Test (QFT) Gold Plus TB Test (QFT) Nil TB Test Mitogen - Nil TB Test Ag - Nil 1 TB Test Ag - Nil 2 08/09/19 08/09/19 08/09/19 Range/Units 14:39 14:39 14:39 ESR (0-14) mm/hr PT (9.0-12.0) Seconds INR (0.9-1.1) Sodium (136-145) mmol/L Potassium (3.5-5.1) mmol/L Chloride (98-107) mmol/L Carbon Dioxide (21-32) mmol/L Anion Gap (3-11) BUN (7-18) mg/dl Creatinine (0.6-1.4) mg/dl Est Cr Clr Drug Dosing ml/min Est GFR ( Amer) Est GFR (Non-Af Amer) BUN/Creatinine Ratio (10-20) Glucose (70-99) mg/dl POC Glucose (70-99) Calcium (8.5-10.1) mg/dl Total Creatine Kinase (39-308) U/L C-Reactive Protein (0-0.29) mg/dl Procalcitonin (0-0.5) ng/ml Rheumatoid Factor Pending Cycl Citrul Peptide IgG < 0.40 (0-4.99) U/ml MARY Screen Pending KELVIN-1 Antibody Pending SS-A/Ro Antibody Pending SS-B/La Antibody Pending DESKTOP ADMINISTRATOR Antibody Pending Scl-70 Scleroderma Ab Pending Anti-Centromere Ab Pending Urine Legionella Ag TB Test (QFT) Gold Plus Pending TB Test (QFT) Nil Pending TB Test Mitogen - Nil Pending TB Test Ag - Nil 1 Pending TB Test Ag - Nil 2 Pending 08/09/19 08/09/19 08/09/19 Range/Units 14:39 14:39 14:39 ESR 13 (0-14) mm/hr PT (9.0-12.0) Seconds INR (0.9-1.1) Sodium (136-145) mmol/L Potassium (3.5-5.1) mmol/L Chloride (98-107) mmol/L Carbon Dioxide (21-32) mmol/L Anion Gap (3-11) BUN (7-18) mg/dl Creatinine (0.6-1.4) mg/dl Est Cr Clr Drug Dosing ml/min Est GFR ( Amer) Est GFR (Non-Af Amer) BUN/Creatinine Ratio (10-20) Glucose (70-99) mg/dl POC Glucose (70-99) Calcium (8.5-10.1) mg/dl Total Creatine Kinase 54 (39-308) U/L C-Reactive Protein 1.59 H (0-0.29) mg/dl Procalcitonin 0.12 (0-0.5) ng/ml Rheumatoid Factor Cycl Citrul Peptide IgG (0-4.99) U/ml MARY Screen KELVIN-1 Antibody SS-A/Ro Antibody SS-B/La Antibody DESKTOP ADMINISTRATOR Antibody Scl-70 Scleroderma Ab Anti-Centromere Ab Urine Legionella Ag TB Test (QFT) Gold Plus TB Test (QFT) Nil TB Test Mitogen - Nil TB Test Ag - Nil 1 TB Test Ag - Nil 2 08/07/19 Range/Units 17:51 ESR (0-14) mm/hr PT (9.0-12.0) Seconds INR (0.9-1.1) Sodium (136-145) mmol/L Potassium (3.5-5.1) mmol/L Chloride (98-107) mmol/L Carbon Dioxide (21-32) mmol/L Anion Gap (3-11) BUN (7-18) mg/dl Creatinine (0.6-1.4) mg/dl Est Cr Clr Drug Dosing ml/min Est GFR ( Amer) Est GFR (Non-Af Amer) BUN/Creatinine Ratio (10-20) Glucose (70-99) mg/dl POC Glucose (70-99) Calcium (8.5-10.1) mg/dl Total Creatine Kinase (39-308) U/L C-Reactive Protein (0-0.29) mg/dl Procalcitonin (0-0.5) ng/ml Rheumatoid Factor Cycl Citrul Peptide IgG (0-4.99) U/ml MARY Screen KELVIN-1 Antibody SS-A/Ro Antibody SS-B/La Antibody DESKTOP ADMINISTRATOR Antibody Scl-70 Scleroderma Ab Anti-Centromere Ab Urine Legionella Ag SEE NOTE TB Test (QFT) Gold Plus TB Test (QFT) Nil TB Test Mitogen - Nil TB Test Ag - Nil 1 TB Test Ag - Nil 2 PG Care Time/CCT Total # of Minutes Spent Total Time Spent with Patient: Total time spent is greater than 50% in coordination of care (as documented) at patient's floor/unit and/or counseling patient:
[2019-08-10] MEDS: WARFARIN SOD 4 MG TAB PO SCH (16:37)
[2019-08-11 07:07] LABS: INR 1.5 (0.9-1.1); Prothrombin Time 15.1 Seconds (9.0-12.0)
[2019-08-11] MEDS: ALBUT/IPRATROP 3MG/0.5MG NEB 3 ML VIAL NEB SCH ×4 (07:11→19:12)
[2019-08-11] MEDS: BUDESONIDE 0.5 MG/2 ML VIAL (PULMICORT) NEB SCH ×2 (07:11→19:12)
[2019-08-11 07:27] LABS: BUN Creatinine Ratio 39.1 (10-20); Calcium 8.2 mg/dl (8.5-10.1); Creatinine Clr Calc Pharmacy 36.5 ml/min; Est GFR (African American) 52.8; Est GFR (Non-African American) 45.5; Magnesium 2.1 mg/dl (1.8-2.4); Potassium 3.8 mmol/L (3.5-5.1)
[2019-08-11] MEDS: methylPREDNISolone 60 MG in SYRINGE 0 ML IV SCH (08:25)
[2019-08-11] MEDS: ENOXAPARIN INJ 60 MG/0.6 ML SYR SQ SCH (08:25)
[2019-08-11] MEDS: POTASSIUM CHLORIDE 20 MEQ TABCR PO SCH ×3 (08:25→20:50)
[2019-08-11] MEDS: INSULIN ASPART 100 UNITS/ML 3 ML PEN SC SCH ×4 (08:26→20:51)
[2019-08-11] MEDS: CLOPIDOGREL BISULFATE 75 MG TAB PO SCH (08:26)
[2019-08-11] MEDS: HYDROXYUREA 500 MG CAP PO SCH ×2 (08:26→16:50)
[2019-08-11] MEDS: ASPIRIN 81 MG ECTAB PO SCH (08:27)
--- NOTE | 2019-08-11 13:39 | Pulmonology Progress Note ---
Date of Service August 11, 2019 Assessment & Plan (1) Idiopathic interstitial pneumonia: 08/09: CT of his chest reviewed from 08/07/2019 which demonstrates diffuse micronodular changes with increased septal lines and minimal mediastinal adenopathy. There is also what appears to be a at least a partially calcified right upper lobe nodule. He also has evidence of pulmonary hypertension with a large pulmonary trunk and echocardiographic evidence of increased RVSP, decreased tricuspid annular systolic plane excursion and decreased RV function. It is unclear to me whether the lung findings are secondary to an acute or chronic process. I suspect this is likely an acute ON chronic process. The differential is broad in such an appearance of the chest on CT. This may represent anything from an atypical miliary type sarcoid to an infectious bronchiolitis to miliary TB or lymphaginorcinomatosis. This may also be a sequelae of his prior [employer] career. Ideally, we would perform a bronchoscopy and likely biopsies, however, he is anticoagulated and severely hypoxemic requiring high flow nasal cannula at this time. He does appear to have chronic disease on a systemic level as his albumin is low and his BMI is also on the lower side. I suspect that his pulmonary hypertension is likely secondary to lung disease. He does have a history of DVT and certainly the possibility of chronic thromboembolic pulmonary hypertension remains. The way to evaluate this would be with a V/Q scan, however, the utility in this would be very limited at this time given his underlying interstitial findings. I am sending off for some serological testing including an MARY screen, anti-MANUFACTURING DESIGN ENGINEER, CK level and CCP. He may have a possible underlying autoimmunity or mixed connective tissue disorder, although I suspect this is less likely. I do think a trial of steroids at this time is warranted at a dose of 1 mg/kg daily of IV Solu-Medrol which would be approximately 60 mg. It is possible that these infiltrates that we are seeing may be reflective of an underlying infectious etiology such as a fungal or atypical bacterial pneumonia, however, at this time given the lack of improvement in the symptoms and the limited options that we have, I think a trial of steroids is warranted. I would recommend checking another procalcitonin today and if his procalcitonin remains negative, then I would discontinue his antibiotics. Certainly, if his oxygen levels continue to improve, them I could entertain the idea of bronchoscopy with biopsies at that time if the patient and family decide to go this route. Additionally, I would recommend discontinuing his propranolol that is been used for tremors as this could reduce his right-sided cardiac output. He is very bradycardic with heart rates in the low 50s. He does have underlying pulmonary hypertension which can be made worse with beta-braxton such as propranolol. 08/10: Continue IV Solu-Medrol. Discussed with nursing with regards to getting the patient out of the bed to a chair. Would recommend trying to ambulate him about the room a bit. It is okay to go up on his oxygen if needed and then back down once he is settled.Sputum cultures have been unrevealing. Again I do not think this is an acute infectious process and more likely an indolent acute on chronic process. I suspect he likely has some degree of interstitial lung disease with associated pulmonary hypertension. Serologies regarding autoimmunity are pending. Mycoplasma antibodies pending. Urine Legionella is negative.I did have a lengthy discussion with the daughter at bedside. He is a high risk patient for bronchoscopy at this time. He is going into worsening renal failure. And he is being rehydrated with some fluids. I would be very cautious with fluids given his pulmonary hypertension. I think he is in for a long road to recovery. 08/11/19: Patient has continued to improve. He is saturating 89% on 6 L nasal cannula. He is eating well. He notes that his shortness of breath has improved substantially. He was sitting up in a chair yesterday. I would continue the IV steroids for today and switch him to p.o. prednisone at 40 mg tomorrow. Continue physical therapy. Continue cautious diuresis on a as needed basis. His CCP IgG antibody was negative. CK was normal. Creatinine is improving. The rest of his autoimmune panel is pending. QuantiFERON gold testing is pending. Sputum cultures have been unrevealing. Mycoplasma IgG M was negative. (2) Acute respiratory failure with hypoxia: (3) History of tobacco use: (4) History of DVT (deep vein thrombosis): (5) Secondary pulmonary hypertension: (6) Aortic valve stenosis: Cardiac valve disease etiology: etiology unspecified Qualified Code(s): I35.0 - Nonrheumatic aortic (valve) stenosis Physical Exam Eyes: PERRL, conjunctivae normal, anicteric sclerae ENMT: external ear and nose normal, oropharynx normal Cardiovascular: Rate/Rhythm: regular rhythm Extremities: no edema Gastrointestinal (Abdomen): normal bowel sounds, soft, nontender, no hepatosplenomegaly Psychiatric: Orientation: alert, oriented x [address] Results & Data Vital Signs (Past 12 Hours) Vital Signs Temp Pulse Resp BP Pulse Ox 08/11/19 12:07 98.1 F 69 16 169/86 H 89 L 08/11/19 11:01 60 18 91 08/11/19 10:59 60 18 91 08/11/19 07:23 97.7 F 59 L 16 129/64 92 08/11/19 07:12 62 20 91 08/11/19 07:11 62 20 91 08/11/19 05:00 58 L 14 90 08/11/19 03:03 97.7 F 56 L 16 148/68 H 94 08/11/19 01:56 55 L 14 91 PG Care Time/CCT Total # of Minutes Spent Total Time Spent with Patient: Total time spent is greater than 50% in coordination of care (as documented) at patient's floor/unit and/or counseling patient:
--- NOTE | 2019-08-11 16:17 | Hospitalist Progress Note ---
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 Appreciate pulmonary consult unclear etiology of such profound hypoxia, but w/ changes on CT with scarring, interstitial changes--> autoimmune vs atypical infectious, miliary sarcoidosis, miliary TB, or lymphanginocarcinomatosis. -consider bronchoscopy and likely biopsies if hypoxemia improves as per Pulm--> today says would be too high risk for bronch so will defer -continue IV SOlu Medrol but consider change to prednisone by tomorrow -check MARY, anti CCP, Quantiferon Gold ESR, CRP, Procal all negative -off abx -continue O2, nebs (weaning O2) -f/u Mycoplasma, Legionella negative -follow BCxs-NGTD ECHO with signs of pulmonary hypertension, RV dilated with reduced EF mild to moderate aortic stenosis but preserved LV EF essentially with cor pulmonale but no significant peripheral edema on exam -diuresed and no change in hypoxia, follow fluid balance -will need close pulmonary follow up, PFT as outpatient -PT/OT eval and treat (2) IGGY (acute kidney injury): 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 Continue to follow off of Lasix gentle fluids as above. (5) Arteriosclerotic cardiovascular disease (ASCVD): stableno noted symptoms -continue aspirin and clopidogrel (6) Benign hypertension: Vitals reasonable today given the overall situation. Continue to follow. (7) Deep vein thrombosis of lower extremity: Held warfarin for INR 4.9 on admission Now subtherapeutic but slowly rising, continue Coumadin 4 mg daily -continue to bridge with Lovenox 1mg/kg q24h (renal dosing) -follow INR in AM (8) Diabetes mellitus: Hold metformin. Continue Accu-Cheks before meals and at bedtime with NovoLog coverage per scale monitor for hypoglycemia, no episodes while on steroidssugars overall have been under reasonable control (9) Enlarged prostate with lower urinary tract symptoms (LUTS): Monitor for symptoms. urinating well (10) Lesion of vertebra of thoracic spine present on computed tomography: questionable metastatic lesions calcium and alk phos normal no malignancy seen in lungs checked PSA - 0.103, argues against metastatic prostate CA would consider CT abd/pelvis with IV contrast if Cr improves currently his lung issues are more pressing, continue to work up and treat the lung pathology recommend a referral to oncology as outpatient, no immediate needs while hospitalized as he is too hypoxic to undergo any procedures (11) Secondary pulmonary hypertension: secondary to lung disease -holding diuretics for now, cautious use of IVFs for AKIsee above (12) Aortic valve stenosis: mild-mod on ECHO no indication for replacement (13) Aortic regurgitation: moderate on ECHO here -follow routinely as outpt (14) DVT prophylaxis: Lovenox, COumadin Dispo-remain on PCU, but no showing improvement PT/OT eval and treat Subjective feeling ok. no significant dyspnea. out of bed earlier and felt good, although has yet to work with therapy. no f/c/s. no significant cough. d/w pulmonary. pt in bed watching [employer], decides to root for [employer] because his brother used to live there. Review of Systems Review of Systems: All systems reviewed & are unremarkable except as noted in HPI & below Physical Exam Physical Exam: gen - aao, pleasant nad; heent nc at mmm; breathing unlabored no accessory muscles good effort no respiratory distress; neuro cn 2-12 grossly intact gross motor/sensory intact no focal deficits; skin no rashes no pallor or icterus Results & Data Vital Signs (Past 12 Hours) Vital Signs Temp Pulse Resp BP Pulse Ox 08/11/19 15:13 67 18 89 L 08/11/19 15:10 98.1 F 73 21 157/75 H 90 08/11/19 12:07 98.1 F 69 16 169/86 H 89 L 08/11/19 11:01 60 18 91 08/11/19 10:59 60 18 91 08/11/19 07:23 97.7 F 59 L 16 129/64 92 08/11/19 07:12 62 20 91 08/11/19 07:11 62 20 91 08/11/19 05:00 58 L 14 90 PG Care Time/CCT Total # of Minutes Spent Total Time Spent with Patient: Total time spent is greater than 50% in coordination of care (as documented) at patient's floor/unit and/or counseling patient:
[2019-08-11] MEDS: WARFARIN SOD 4 MG TAB PO SCH (16:50)
[2019-08-12 06:17] LABS: INR 1.6 (0.9-1.1); Prothrombin Time 16.1 Seconds (9.0-12.0)
[2019-08-12 06:44] LABS: BUN Creatinine Ratio 38.1 (10-20); Calcium 8.4 mg/dl (8.5-10.1); Creatinine Clr Calc Pharmacy 44.4 ml/min; Est GFR (African American) 65.1; Est GFR (Non-African American) 56.2; Potassium 4.3 mmol/L (3.5-5.1)
[2019-08-12] MEDS: BUDESONIDE 0.5 MG/2 ML VIAL (PULMICORT) NEB SCH ×2 (07:17→19:11)
[2019-08-12] MEDS: ALBUT/IPRATROP 3MG/0.5MG NEB 3 ML VIAL NEB SCH ×4 (07:17→19:11)
[2019-08-12] MEDS: methylPREDNISolone 60 MG in SYRINGE 0 ML IV SCH (08:15)
[2019-08-12] MEDS: CLOPIDOGREL BISULFATE 75 MG TAB PO SCH (08:16)
[2019-08-12] MEDS: HYDROXYUREA 500 MG CAP PO SCH ×2 (08:16→16:44)
[2019-08-12] MEDS: ASPIRIN 81 MG ECTAB PO SCH (08:16)
[2019-08-12] MEDS: ENOXAPARIN INJ 60 MG/0.6 ML SYR SQ SCH ×2 (08:16→20:49)
[2019-08-12] MEDS: POTASSIUM CHLORIDE 20 MEQ TABCR PO SCH ×2 (08:16→15:28)
[2019-08-12] MEDS: INSULIN ASPART 100 UNITS/ML 3 ML PEN SC SCH ×4 (08:17→20:49)
[2019-08-12 10:55] LABS: Quantiferon Mitogen-NIL 7.27 IU/mL; Quantiferon NIL 0.03 IU/mL; Quantiferon TB Gold Plus NEGATIVE (NEGATIVE); Quantiferon TB2-NIL <0.00 IU/mL
--- NOTE | 2019-08-12 12:44 | Pulmonology Progress Note ---
Date of Service August 12, 2019 Assessment & Plan (1) Idiopathic interstitial pneumonia: 08/09: CT of his chest reviewed from 08/07/2019 which demonstrates diffuse micronodular changes with increased septal lines and minimal mediastinal adenopathy. There is also what appears to be a at least a partially calcified right upper lobe nodule. He also has evidence of pulmonary hypertension with a large pulmonary trunk and echocardiographic evidence of increased RVSP, decreased tricuspid annular systolic plane excursion and decreased RV function. It is unclear to me whether the lung findings are secondary to an acute or chronic process. I suspect this is likely an acute ON chronic process. The differential is broad in such an appearance of the chest on CT. This may represent anything from an atypical miliary type sarcoid to an infectious bronchiolitis to miliary TB or lymphaginorcinomatosis. This may also be a sequelae of his prior [employer] career. Ideally, we would perform a bronchoscopy and likely biopsies, however, he is anticoagulated and severely hypoxemic requiring high flow nasal cannula at this time. He does appear to have chronic disease on a systemic level as his albumin is low and his BMI is also on the lower side. I suspect that his pulmonary hypertension is likely secondary to lung disease. He does have a history of DVT and certainly the possibility of chronic thromboembolic pulmonary hypertension remains. The way to evaluate this would be with a V/Q scan, however, the utility in this would be very limited at this time given his underlying interstitial findings. I am sending off for some serological testing including an MARY screen, anti-MANAGER FRAUD, CK level and CCP. He may have a possible underlying autoimmunity or mixed connective tissue disorder, although I suspect this is less likely. I do think a trial of steroids at this time is warranted at a dose of 1 mg/kg daily of IV Solu-Medrol which would be approximately 60 mg. It is possible that these infiltrates that we are seeing may be reflective of an underlying infectious etiology such as a fungal or atypical bacterial pneumonia, however, at this time given the lack of improvement in the symptoms and the limited options that we have, I think a trial of steroids is warranted. I would recommend checking another procalcitonin today and if his procalcitonin remains negative, then I would discontinue his antibiotics. Certainly, if his oxygen levels continue to improve, them I could entertain the idea of bronchoscopy with biopsies at that time if the patient and family decide to go this route. Additionally, I would recommend discontinuing his propranolol that is been used for tremors as this could reduce his right-sided cardiac output. He is very bradycardic with heart rates in the low 50s. He does have underlying pulmonary hypertension which can be made worse with beta-braxton such as propranolol. 08/10: Continue IV Solu-Medrol. Discussed with nursing with regards to getting the patient out of the bed to a chair. Would recommend trying to ambulate him about the room a bit. It is okay to go up on his oxygen if needed and then back down once he is settled.Sputum cultures have been unrevealing. Again I do not think this is an acute infectious process and more likely an indolent acute on chronic process. I suspect he likely has some degree of interstitial lung disease with associated pulmonary hypertension. Serologies regarding autoimmunity are pending. Mycoplasma antibodies pending. Urine Legionella is negative.I did have a lengthy discussion with the daughter at bedside. He is a high risk patient for bronchoscopy at this time. He is going into worsening renal failure. And he is being rehydrated with some fluids. I would be very cautious with fluids given his pulmonary hypertension. I think he is in for a long road to recovery. 08/11/19: Patient has continued to improve. He is saturating 89% on 6 L nasal cannula. He is eating well. He notes that his shortness of breath has improved substantially. He was sitting up in a chair yesterday. I would continue the IV steroids for today and switch him to p.o. prednisone at 40 mg tomorrow. Continue physical therapy. Continue cautious diuresis on a as needed basis. His CCP IgG antibody was negative. CK was normal. Creatinine is improving. The rest of his autoimmune panel is pending. QuantiFERON gold testing is pending. Sputum cultures have been unrevealing. Mycoplasma IgG M was negative. 08/12: Patient continues to do well today. He can be switched to p.o. prednisone tomorrow at 40 mg. I placed an order for this. Wean off the prednisone over the next 3 weeks. He needs to be seen in the pulmonary clinic within a week. I suspect that he will need supplemental oxygen for a lengthy period of time. He needs full pulmonary function test completed as an outpatient. Autoimmune panel still pending. QuantiFERON gold testing has been negative. Continue physical therapy. (2) Acute respiratory failure with hypoxia: --Ex tobacco use Approximately [id number] smoking history Patient never had PFTs done in the past Patient needs PFT to be done as an outpatient on discharge --History of DVT in the left lower extremity On warfarin Monitor for any signs of bleeding --History of polycythemia On hydroxyurea Platelets within normal limit --History of bladder cancer Status post treatment Now on surveillance yearly cystoscopies --Questionable pathological spine fractures on CAT scan alk phos normal, calcium normal (3) History of tobacco use: (4) History of DVT (deep vein thrombosis): (5) Secondary pulmonary hypertension: (6) Aortic valve stenosis: Cardiac valve disease etiology: etiology unspecified Qualified Code(s): I35.0 - Nonrheumatic aortic (valve) stenosis Subjective Patient continues to improve today. He is playing cards with his family. He is sitting up in a chair. He notes he was able to ambulate around the room without much difficulty. He is currently on 5 L nasal cannula saturating about 91%. He denies any fevers, chills, chest pain, nausea or vomiting. Physical Exam Physical Exam: Elderly appearing male with glasses on. Sitting in chair. No apparent distress. Lungs are clear to auscultation bilaterally. Mild tachypnea. Mild systolic flow murmur is noted. No edema. Abdomen is soft and nontender. No focal neurological deficits noted. Results & Data Vital Signs (Past 12 Hours) Vital Signs Temp Pulse Pulse Resp BP BP Pulse Ox 08/12/19 11:36 97.5 F L 70 21 134/84 91 08/12/19 11:00 67 18 91 08/12/19 07:18 61 15 89 L 08/12/19 06:50 97.7 F 60 16 160/76 H 89 L 08/12/19 03:53 97.7 F 60 20 138/64 93 PG Care Time/CCT Total # of Minutes Spent Total Time Spent with Patient: Total time spent is greater than 50% in coordination of care (as documented) at patient's floor/unit and/or counseling patient:
[2019-08-12 12:59] LABS: Anti Nuclear Antibody Screen NEGATIVE (NEGATIVE); Anti-Centromere Ab <1.0 NEG AI (<1.0 NEG); Anti-SS-A <1.0 NEG AI (<1.0 NEG); Anti-SS-B <1.0 NEG AI (<1.0 NEG); JO 1 Antibody <1.0 NEG AI (<1.0 NEG); RNP Antibody <1.0 NEG AI (<1.0 NEG); Rheumatoid Factor 38 IU/mL (<14); Scleroderma Anti Scl-70 Ab <1.0 NEG AI (<1.0 NEG)
--- NOTE | 2019-08-12 15:14 | Hospitalist Progress Note ---
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 Appreciate pulmonary consult unclear etiology of such profound hypoxia, but w/ changes on CT with scarring, interstitial changes--> autoimmune vs atypical infectious, miliary sarcoidosis, miliary TB, or lymphanginocarcinomatosis initially considered. -consider bronchoscopy and likely biopsies if hypoxemia improves as per Pulm--> today says would be too high risk for bronch so will defer -Now converted from IV Solu-Medrol to prednisone 40 mg daily and will need slow taper down over the next 3 weeks -Autoimmune work-up to include: MARY-negative, anti CCP-negative, rheumatoid factor positive at 38-perhaps rheumatoid lung? Will discuss with pulmonology -Quantiferon Gold negative, mycoplasma titer negative, Legionella negative ESR, CRP, Procal all negative -Initially was on Levaquin which has since been discontinued -continue O2, nebs (weaning O2)-we will need to step prior to discharge -Continue budesonide nebulizer twice daily -follow BCxs-negative -Discontinued propranolol as could be worsening right-sided heart failure ECHO with signs of pulmonary hypertension, RV dilated with reduced EF mild to moderate aortic stenosis but preserved LV EF essentially with cor pulmonale but no significant peripheral edema on exam -diuresed and no change in hypoxia, follow fluid balance -will need close pulmonary follow up, PFT as outpatient -PT/OT eval and treat appreciated and is now ambulating (2) IGGY (acute kidney injury): 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 Continue to follow off of Lasix (5) Arteriosclerotic cardiovascular disease (ASCVD): stableno noted symptoms -continue aspirin and clopidogrel (6) Benign hypertension: Blood pressure controlled -Holding lisinopril/HCTZ for acute kidney injury as above -Discontinued propranolol which she was on for tremor and not for blood pressure anyway (7) Deep vein thrombosis of lower extremity: Held warfarin for INR 4.9 on admission Now subtherapeutic but slowly rising, continue Coumadin 4 mg daily -continue to bridge with Lovenox 1mg/kg every 12 INR now 1.6 -follow INR in AM and if remains subtherapeutic tomorrow, will increase dose of Coumadin (8) Diabetes mellitus: With hyperglycemia secondary to corticosteroids into the 300s Continue to hold home metformin. Continue Accu-Cheks before meals and at bedtime with NovoLog coverage per scale-tightened down sliding scale today -Add Lantus 8 units daily (9) Enlarged prostate with lower urinary tract symptoms (LUTS): Monitor for symptoms. urinating well, no retention (10) Lesion of vertebra of thoracic spine present on computed tomography: questionable metastatic lesions calcium and alk phos normal no malignancy seen in lungs checked PSA - 0.103, argues against metastatic prostate CA would consider CT abd/pelvis with IV contrast if Cr improves currently his lung issues are more pressing, continue to work up and treat the lung pathology recommend a referral to oncology as outpatient, no immediate needs while hospitalized as he is too hypoxic to undergo any procedures (11) Secondary pulmonary hypertension: secondary to lung disease -holding diuretics for now (12) Aortic valve stenosis: mild-mod on ECHO no indication for replacement (13) Aortic regurgitation: moderate on ECHO here -follow routinely as outpt (14) DVT prophylaxis: Lovenox, COumadin Dispo-overall improved, can transition to medical floor with continuous pulse oximetry, expect discharge to home in the next 1 to 2 days, will need to step prior to discharge PT/OT eval and treat appreciated-recommend return home Full code Subjective Patient feeling very well, much improved from previous. Denies shortness of breath or cough. Denies lightheadedness or headache. No nausea or vomiting. He is eating well. He is moving his bowels. Telemetry with normal sinus rhythm with rates in the 50s to 70s. He reports he is ambulating around the room without difficulty. He worked with PT today Review of Systems Review of Systems: All systems reviewed & are unremarkable except as noted in HPI & below Physical Exam Constitutional: + thin; no acute distress Eyes: + anicteric sclerae Neck: trachea midline, no thyromegaly Respiratory: normal respiratory effort; no labored breathing Auscultation: + diminished lung sounds (Throughout); no rales, no rhonchi and no wheezes Overall much improved Cardiovascular: Rate/Rhythm: regular rate and regular rhythm Heart Sounds: no murmur Extremities: no edema Chest (Breasts): Chest: normal inspection of chest Gastrointestinal (Abdomen): normal bowel sounds, soft, nontender, no hepatosplenomegaly Musculoskeletal: Extremities: extremities normal to inspection; no cyanosis and no clubbing Skin: no rashes, warm and dry Neurologic: moves all extremities and awake; no focal motor deficits Psychiatric: A+Ox3, euthymic affect Lymphatic: no lymphedema Results & Data Vital Signs (Past 12 Hours) Vital Signs Temp Pulse Pulse Resp BP BP Pulse Ox 08/12/19 14:54 72 18 88 L 08/12/19 11:36 36.4 C L 70 21 134/84 91 08/12/19 11:06 08/12/19 11:00 67 18 91 08/12/19 07:18 61 15 89 L 08/12/19 06:50 36.5 C 60 16 160/76 H 89 L 08/12/19 03:53 36.5 C 60 20 138/64 93 Pulse Ox Pulse Ox Pulse Ox 08/12/19 14:54 08/12/19 11:36 08/12/19 11:06 88 L 91 81 L 08/12/19 11:00 08/12/19 07:18 08/12/19 06:50 08/12/19 03:53 Laboratory Results 08/12/19 08/12/19 08/12/19 Range/Units 16:07 16:06 11:34 PT (9.0-12.0) Seconds INR (0.9-1.1) Sodium (136-145) mmol/L Potassium (3.5-5.1) mmol/L Chloride (98-107) mmol/L Carbon Dioxide (21-32) mmol/L Anion Gap (3-11) BUN (7-18) mg/dl Creatinine (0.6-1.4) mg/dl Est Cr Clr Drug Dosing ml/min Est GFR ( Amer) Est GFR (Non-Af Amer) BUN/Creatinine Ratio (10-20) Glucose (70-99) mg/dl POC Glucose 302 H* 348 H* 250 H (70-99) Calcium (8.5-10.1) mg/dl Rheumatoid Factor (<14) IU/mL MARY Screen (NEGATIVE) KELVIN-1 Antibody (<1.0 NEG) AI SS-A/Ro Antibody (<1.0 NEG) AI SS-B/La Antibody (<1.0 NEG) AI LOGISTIC SPECIALIST Antibody (<1.0 NEG) AI Scl-70 Scleroderma Ab (<1.0 NEG) AI Anti-Centromere Ab (<1.0 NEG) AI TB Test (QFT) Gold Plus (NEGATIVE) TB Test (QFT) Nil IU/mL TB Test Mitogen - Nil IU/mL TB Test Ag - Nil 1 IU/mL TB Test Ag - Nil 2 IU/mL 08/12/19 08/12/19 08/12/19 Range/Units 07:30 05:36 05:36 PT 16.1 H (9.0-12.0) Seconds INR 1.6 H (0.9-1.1) Sodium 145 (136-145) mmol/L Potassium 4.3 (3.5-5.1) mmol/L Chloride 115 H (98-107) mmol/L Carbon Dioxide 24 (21-32) mmol/L Anion Gap 6.0 (3-11) BUN 46 H (7-18) mg/dl Creatinine 1.21 (0.6-1.4) mg/dl Est Cr Clr Drug Dosing 44.4 ml/min Est GFR ( Amer) 65.1 Est GFR (Non-Af Amer) 56.2 BUN/Creatinine Ratio 38.1 H (10-20) Glucose 122 H (70-99) mg/dl POC Glucose 137 H (70-99) Calcium 8.4 L (8.5-10.1) mg/dl Rheumatoid Factor (<14) IU/mL MARY Screen (NEGATIVE) KELVIN-1 Antibody (<1.0 NEG) AI SS-A/Ro Antibody (<1.0 NEG) AI SS-B/La Antibody (<1.0 NEG) AI LOGISTIC SPECIALIST Antibody (<1.0 NEG) AI Scl-70 Scleroderma Ab (<1.0 NEG) AI Anti-Centromere Ab (<1.0 NEG) AI TB Test (QFT) Gold Plus (NEGATIVE) TB Test (QFT) Nil IU/mL TB Test Mitogen - Nil IU/mL TB Test Ag - Nil 1 IU/mL TB Test Ag - Nil 2 IU/mL 08/11/19 08/09/19 08/09/19 Range/Units 20:41 14:39 14:39 PT (9.0-12.0) Seconds INR (0.9-1.1) Sodium (136-145) mmol/L Potassium (3.5-5.1) mmol/L Chloride (98-107) mmol/L Carbon Dioxide (21-32) mmol/L Anion Gap (3-11) BUN (7-18) mg/dl Creatinine (0.6-1.4) mg/dl Est Cr Clr Drug Dosing ml/min Est GFR ( Amer) Est GFR (Non-Af Amer) BUN/Creatinine Ratio (10-20) Glucose (70-99) mg/dl POC Glucose 202 H (70-99) Calcium (8.5-10.1) mg/dl Rheumatoid Factor 38 H (<14) IU/mL MARY Screen NEGATIVE (NEGATIVE) KELVIN-1 Antibody <1.0 NEG (<1.0 NEG) AI SS-A/Ro Antibody <1.0 NEG (<1.0 NEG) AI SS-B/La Antibody <1.0 NEG (<1.0 NEG) AI LOGISTIC SPECIALIST Antibody <1.0 NEG (<1.0 NEG) AI Scl-70 Scleroderma Ab <1.0 NEG (<1.0 NEG) AI Anti-Centromere Ab <1.0 NEG (<1.0 NEG) AI TB Test (QFT) Gold Plus NEGATIVE (NEGATIVE) TB Test (QFT) Nil 0.03 IU/mL TB Test Mitogen - Nil 7.27 IU/mL TB Test Ag - Nil 1 0.00 IU/mL TB Test Ag - Nil 2 <0.00 IU/mL PG Care Time/CCT Total # of Minutes Spent Total Time Spent with Patient: Total time spent is greater than 50% in coordination of care (as documented) at patient's floor/unit and/or counseling patient:
[2019-08-12] MEDS: WARFARIN SOD 4 MG TAB PO SCH (15:28)
[2019-08-12] MEDS: INSULIN GLARGINE SOLOSTAR 100 UNITS/ML 3 ML PEN SC SCH (17:27)
[2019-08-13] MEDS: ALBUT/IPRATROP 3MG/0.5MG NEB 3 ML VIAL NEB SCH ×4 (07:24→19:43)
[2019-08-13] MEDS: BUDESONIDE 0.5 MG/2 ML VIAL (PULMICORT) NEB SCH ×2 (07:24→19:43)
[2019-08-13 07:29] LABS: INR 1.5 (0.9-1.1); Prothrombin Time 15.3 Seconds (9.0-12.0)
[2019-08-13 07:54] LABS: BUN Creatinine Ratio 31.5 (10-20); Calcium 8.2 mg/dl (8.5-10.1); Creatinine Clr Calc Pharmacy 49.1 ml/min; Est GFR (African American) 73.1; Est GFR (Non-African American) 63.1; Potassium 4.1 mmol/L (3.5-5.1)
[2019-08-13] MEDS: predniSONE 20 MG TAB PO SCH (08:43)
[2019-08-13] MEDS: ENOXAPARIN INJ 60 MG/0.6 ML SYR SQ SCH ×2 (08:44→21:22)
[2019-08-13] MEDS: ASPIRIN 81 MG ECTAB PO SCH (08:44)
[2019-08-13] MEDS: CLOPIDOGREL BISULFATE 75 MG TAB PO SCH (08:44)
[2019-08-13] MEDS: HYDROXYUREA 500 MG CAP PO SCH ×2 (08:45→17:28)
[2019-08-13] MEDS: INSULIN GLARGINE SOLOSTAR 100 UNITS/ML 3 ML PEN SC SCH (08:49)
[2019-08-13] MEDS: INSULIN ASPART 100 UNITS/ML 3 ML PEN SC SCH ×4 (08:50→21:21)
[2019-08-13] MEDS ORDERED: WARFARIN SOD 2.5 MG TAB PO ONE (16:00)
[2019-08-13] MEDS ORDERED: WARFARIN SOD 5 MG TAB PO SCH (16:00)
--- NOTE | 2019-08-13 19:08 | Hospitalist Progress Note ---
Date of Service August 13, 2019 Assessment & Plan (1) Acute respiratory failure with hypoxia: Idiopathic interstitial PNA, likely acute on chronic process Family reports patient has been short of breath for the past YEAR but did not seek medical attention Some of these changes have been evident for a long time, likely he was compensating for some chronic hypoxia -Has improved significantly since admission-initially was requiring 12-15L O2 via face mask and now weaned down to 5-6 L nasal cannula- continue current course of care. Appreciate pulmonary consult unclear etiology of such profound hypoxia, but w/ changes on CT with scarring, interstitial changes--> autoimmune vs atypical infectious, miliary sarcoidosis, miliary TB, or lymphanginocarcinomatosis initially considered. -consider bronchoscopy and likely biopsies if hypoxemia improves as per Pulm--> says would be too high risk for bronch so will defer -Now converted from IV Solu-Medrol to prednisone 40 mg daily and will need slow taper down over the next 3 weeks -Autoimmune work-up to include: MARY-negative, anti CCP-negative, rheumatoid factor positive at 38-perhaps rheumatoid lung? Will discuss with pulmonology -Quantiferon Gold negative, mycoplasma titer negative, Legionella negative ESR, CRP, Procal all negative -Initially was on Levaquin which has since been discontinued -continue O2, nebs (weaning O2)-we will need two step prior to discharge -Continue budesonide nebulizer twice daily -follow BCxs-negative -Discontinued propranolol as could be worsening right-sided heart failure ECHO with signs of pulmonary hypertension, RV dilated with reduced EF mild to moderate aortic stenosis but preserved LV EF essentially with cor pulmonale but no significant peripheral edema on exam -diuresed and no change in hypoxia, follow fluid balance -will need close pulmonary follow up, PFT as outpatient -PT/OT eval and treat appreciated and is now ambulating (2) IGGY (acute kidney injury): 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 Continue to follow off of Lasix (5) Arteriosclerotic cardiovascular disease (ASCVD): stableno noted symptoms -continue aspirin and clopidogrel (6) Benign hypertension: Blood pressure controlled -Holding lisinopril/HCTZ for acute kidney injury as above -Discontinued propranolol which she was on for tremor and not for blood pressure anyway (7) Deep vein thrombosis of lower extremity: Held warfarin for INR 4.9 on admission Now remains subtherapeutic for many days since restarting Coumadin -increase Coumadin to 7.5mg for today and then return to 5mg daily -continue to bridge with Lovenox 1mg/kg every 12h until INR therapeutic INR now 1.5 -follow INR in AM (8) Diabetes mellitus: With hyperglycemia secondary to corticosteroids improved but still in 200s Continue to hold home metformin. Continue Accu-Cheks before meals and at bedtime with NovoLog coverage per scale- tightened down sliding scale again today -Increase Lantus to 10 units daily (9) Enlarged prostate with lower urinary tract symptoms (LUTS): Monitor for symptoms. urinating well, no retention (10) Lesion of vertebra of thoracic spine present on computed tomography: questionable metastatic lesions-multiple blastic lesions and possible pathologic vertebral fractures seen in spine calcium and alk phos normal checked PSA - 0.103, argues against metastatic prostate CA No obvious malignancy seen in lungs/chest CT -follows with Oncology as outpt for his thrombocytosis--> consider f/u with Oncology and possible repeat PET/CT? (11) Secondary pulmonary hypertension: secondary to lung disease -continue holding diuretics for now (12) Aortic valve stenosis: mild-mod on ECHO no indication for replacement (13) Aortic regurgitation: moderate on ECHO here -follow routinely as outpt (14) DVT prophylaxis: Lovenox, COumadin Dispo-overall much improved, expect discharge to home possibly tomorrow, will need to step prior to discharge PT/OT eval and treat appreciated-recommend return home if can navigate stairs here prior to discharge Full code Subjective Pt feeling well today. Remains on 5-6LNC but reports he walked up and down the halls twice today and had no dyspnea on exertion. Denies chest pain or cough, no lightheadedness. Is eating everything on his plate every meal. Denies diarrhea, is making urine. Review of Systems Review of Systems: All systems reviewed & are unremarkable except as noted in HPI & below Physical Exam Constitutional: + thin; no acute distress Eyes: + anicteric sclerae Neck: trachea midline, no thyromegaly Respiratory: normal respiratory effort; no labored breathing Auscultation: + diminished lung sounds (Throughout); no rales, no rhonchi and no wheezes Cardiovascular: Rate/Rhythm: regular rate and regular rhythm Heart Sounds: + murmur (2/6 CATHLEEN at apex) Extremities: no edema Chest (Breasts): Chest: normal inspection of chest Gastrointestinal (Abdomen): normal bowel sounds, soft, nontender, no hepatosplenomegaly Musculoskeletal: Extremities: extremities normal to inspection; no cyanosis and no clubbing Skin: no rashes, warm and dry Neurologic: moves all extremities and awake; no focal motor deficits Psychiatric: A+Ox3, euthymic affect Lymphatic: no lymphedema Results & Data Vital Signs (Past 12 Hours) Vital Signs Temp Pulse Resp BP BP Pulse Ox 08/13/19 15:36 36.4 C L 72 20 130/68 92 08/13/19 15:11 65 16 91 08/13/19 14:30 91 08/13/19 14:27 91 08/13/19 11:17 66 16 90 08/13/19 07:36 36.5 C 64 18 168/70 H 88 L 08/13/19 07:24 62 18 88 L Laboratory Results 08/13/19 08/13/19 08/13/19 Range/Units 16:42 11:35 07:49 PT (9.0-12.0) Seconds INR (0.9-1.1) Sodium (136-145) mmol/L Potassium (3.5-5.1) mmol/L Chloride (98-107) mmol/L Carbon Dioxide (21-32) mmol/L Anion Gap (3-11) BUN (7-18) mg/dl Creatinine (0.6-1.4) mg/dl Est Cr Clr Drug Dosing ml/min Est GFR ( Amer) Est GFR (Non-Af Amer) BUN/Creatinine Ratio (10-20) Glucose (70-99) mg/dl POC Glucose 226 H 205 H 105 H (70-99) Calcium (8.5-10.1) mg/dl 08/13/19 08/13/19 Range/Units 07:09 07:09 PT 15.3 H (9.0-12.0) Seconds INR 1.5 H (0.9-1.1) Sodium 145 (136-145) mmol/L Potassium 4.1 (3.5-5.1) mmol/L Chloride 117 H (98-107) mmol/L Carbon Dioxide 23 (21-32) mmol/L Anion Gap 5.0 (3-11) BUN 35 H (7-18) mg/dl Creatinine 1.10 (0.6-1.4) mg/dl Est Cr Clr Drug Dosing 49.1 ml/min Est GFR ( Amer) 73.1 Est GFR (Non-Af Amer) 63.1 BUN/Creatinine Ratio 31.5 H (10-20) Glucose 103 H (70-99) mg/dl POC Glucose (70-99) Calcium 8.2 L (8.5-10.1) mg/dl PG Care Time/CCT Total # of Minutes Spent Total Time Spent with Patient: Total time spent is greater than 50% in coordination of care (as documented) at patient's floor/unit and/or counseling patient:
[2019-08-14 06:25] LABS: INR 1.7 (0.9-1.1); Prothrombin Time 16.9 Seconds (9.0-12.0)
[2019-08-14] MEDS: BUDESONIDE 0.5 MG/2 ML VIAL (PULMICORT) NEB SCH (07:05)
[2019-08-14] MEDS: ALBUT/IPRATROP 3MG/0.5MG NEB 3 ML VIAL NEB SCH ×3 (07:05→15:00)
[2019-08-14] MEDS: ASPIRIN 81 MG ECTAB PO SCH (07:36)
[2019-08-14] MEDS: ENOXAPARIN INJ 60 MG/0.6 ML SYR SQ SCH (07:37)
[2019-08-14] MEDS: HYDROXYUREA 500 MG CAP PO SCH (07:37)
[2019-08-14] MEDS: CLOPIDOGREL BISULFATE 75 MG TAB PO SCH (07:39)
[2019-08-14] MEDS: predniSONE 20 MG TAB PO SCH (07:39)
[2019-08-14] MEDS: INSULIN ASPART 100 UNITS/ML 3 ML PEN SC SCH ×2 (08:27→12:29)
[2019-08-14] MEDS ORDERED: INSULIN GLARGINE SOLOSTAR 100 UNITS/ML 3 ML PEN SC SCH (09:00)
--- NOTE | 2019-08-14 10:00 | XRay Report ---
XR chest 2V PA/lateral CLINICAL HISTORY: follow up interstitial opacities dyspnea COMPARISON STUDY: 08/09/2019 FINDINGS: Progressive interstitial change throughout both hemithoraces. Segmental atelectasis left paula ng base. IMPRESSION: Progressive findings of diffuse bilateral interstitial pulmonary edema. ACT 112: Negative or not required by law. The above report was generated using voice recognition software. It may contain grammatical, syntax or spelling errors. Electronically signed by: Shun Batista M.D. 08/14/2019 9:59 AM
--- NOTE | 2019-08-14 13:03 | Discharge Summary ---
Date of Service August 14, 2019 Admission HPI Per Admitting Provider The patient is an 79-year-old male with a past medical history including aortic valve stenosis, ASCVD, benign hypertension, lower extremity DVT, diabetes mellitus, dyslipidemia, BPH with LUTS, polyarthralgias, pleural plaque with presence of asbestos, gangrene of left toe and peripheral arterial disease. The patient reports that he has had difficulty with breathing for several years, but periodically has an exacerbation, and notes that he has had to take more frequent breaks to be able to do routine chores at home. He has not had any recent travels or sick exposures. Principal Diagnosis Acute interstitial pneumonitis, Acute respiratory failure with hypoxia Discharge Exam Constitutional + thin; no acute distress Eyes + anicteric sclerae ENMT external ear and nose normal, oropharynx normal Neck trachea midline, no thyromegaly Respiratory normal respiratory effort; no labored breathing Auscultation: + diminished lung sounds (Throughout) and + crackles (right base); no rhonchi and no wheezes Cardiovascular Rate/Rhythm: regular rate and regular rhythm Heart Sounds: + murmur (2/6 CATHLEEN at RUSB) Extremities: no edema Chest (Breasts) Chest: normal inspection of chest Gastrointestinal (Abdomen) normal bowel sounds, soft, nontender, no hepatosplenomegaly Musculoskeletal Extremities: extremities normal to inspection; no cyanosis and no clubbing Skin no rashes, warm and dry Neurologic moves all extremities and awake; no focal motor deficits Psychiatric A+Ox3, euthymic affect Lymphatic no lymphedema Discharge Data Allergies Allergy/AdvReac Type Severity Reaction Status Date / Time Sulfa (Sulfonamide Allergy Intermediate HIVES Verified 08/06/19 17:29 Antibiotics) atorvastatin AdvReac Mild LEG CRAMPS Verified 08/06/19 17:29 cilostazol AdvReac Mild DIARRHEA Verified 08/06/19 17:29 Consultations 08/06/19 18:27 ED Decision to Admit Stat 08/06/19 21:59 Consult Case Management - Discharge Planning Routine 08/07/19 14:19 Consult Pulmonology Routine Ordered Studies 08/07/19 11:53 CT chest wo con Routine CXR x 3 ECHO Hospital Course (1) Acute respiratory failure with hypoxia: Idiopathic interstitial PNA, likely acute on chronic process Family reports patient has been short of breath for the past YEAR but did not seek medical attention Some of these changes have been evident for a long time, likely he was compensating for some chronic hypoxia -Has improved significantly since admission-initially was requiring 12-15L O2 via face mask and now weaned down to 4-6 L nasal cannula Appreciate pulmonary consult unclear etiology of such profound hypoxia, but w/ changes on CT with scarring, interstitial changes--> autoimmune vs atypical infectious, miliary sarcoidosis, miliary TB, or lymphanginocarcinomatosis initially considered. -consider bronchoscopy and likely biopsies if hypoxemia improves as per Pulm--> says would be too high risk for bronch so will defer until possibly as an outpa tient -initially treated with IV Solu-Medrol and then converted to prednisone 40 mg daily and will need slow taper down over the next 3 weeks--> will decrease by 10mg q5 days until back to home dose of 3mg daily -Autoimmune work-up to include: MARY-negative, anti CCP-negative, rheumatoid factor positive at 37-perhaps rheumatoid lung? Will need f/u with pulmonology -Quantiferon Gold negative, mycoplasma titer negative, Legionella negative ESR, CRP, Procal all negative, Blood cultures negative -Initially was on Levaquin which has since been discontinued -continue O2 4LNC at rest and 5-6LNC with exertion on official 2 step walk test -Discontinued propranolol as could be worsening right-sided heart failure ECHO with signs of pulmonary hypertension, RV dilated with reduced EF mild to moderate aortic stenosis but preserved LV EF essentially with cor pulmonale but no significant peripheral edema on exam -diuresed and no change in hypoxia -will need close pulmonary follow up, PFT as outpatient Ambulating at time of discharge and need home health (2) IGGY (acute kidney injury): 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 (5) Arteriosclerotic cardiovascular disease (ASCVD): stableno noted symptoms -continue aspirin and clopidogrel (6) Benign hypertension: Blood pressure controlled -held lisinopril/HCTZ for acute kidney injury as above BPs mildly elevated by time of discharge and renal function much improved--> restart lisinopril/HCTZ as above on discharge -Discontinued propranolol which he was on for tremor and not for blood pressure anyway (7) Deep vein thrombosis of lower extremity: Held warfarin for INR 4.9 on admission Then remained subtherapeutic for many days since restarting Coumadin -received 5mg daily and then 7mg on 08/13/19--> send out on Coumadin 5mg daily and check PT/INR as outpt on Wednesday 08/16 -was bridged with Lovenox 1mg/kg every 12h during hospital stay but not needed upon discharge INR now 1.7 (8) Diabetes mellitus: With hyperglycemia secondary to corticosteroids now much improved with insulin Restart home metformin upon dc No insulin use needed at home as will be tapering off steroids -f/u with PCP (9) Enlarged prostate with lower urinary tract symptoms (LUTS): Monitor for symptoms. urinating well, no retention (10) Lesion of vertebra of thoracic spine present on computed tomography: questionable metastatic lesions-multiple blastic lesions and possible pathologic vertebral fractures seen in spine calcium and alk phos normal checked PSA - 0.103, argues against metastatic prostate CA No obvious malignancy seen in lungs/chest CT -follows with Oncology as outpt for his thrombocytosis--> consider f/u with Onc ology and possible repeat PET/CT? (11) Secondary pulmonary hypertension: secondary to lung disease follow volume status (12) Aortic valve stenosis: mild-mod on ECHO no indication for replacement (13) Aortic regurgitation: moderate on ECHO here -follow routinely as outpt (14) DVT prophylaxis: Lovenox, COumadin provided Dispo-overall much improved, discharge to home today with O2 PT/OT eval and treat appreciated-recommend return home and will have Home Health arranged Full code Total Time Total Time Spent Total Time Spent (In Minutes): 40 min Total Time Includes: Examination of the Patient, Discharge Planning and Medication Reconciliation Discharge Plan Discharge Items Patient Disposition: Home - Home Health Services Reason For Visit: ACUTE RESPIRATORY FAILURE WITH HYPOXIA Discharge Diagnosis: Acute interstitial pneumonitis, Acute hypoxic respiratory failure Condition on Discharge: Fair Goals: You have been hospitalized for an acute medical problem. During your stay at [facility], we have made an effort to correct the problem that brought you to the hospital while keeping you as comfortable as possible. Medications were used to bring your condition under control and your discharge instructions will include directions for any medications you should take after leaving the hospital. Please make sure you see your Primary Care Provider as part of your follow up plan. Activity: As commented below Lifting: Gradually increase as tolerated Bathing: No limitations Driving/Machine Use: Resume after seen by PCP and cleared Weightbearing: Full weightbearing Non-emergency contact: Primary Care Provider and Verifying Machine Operator Call non-emergency contact if: you have any medication questions and your symptoms worsen Follow-up/Referrals: Emeterio Hardin MD [Primary Care Provider] - (Please call for a hospital follow up appointment within 2 weeks.) Nixon Alatorre MD [Physician] - (Please call for a hospital follow up appointment within 1 week.) Diet: Carb Consistent or DM2 and Heart Healthy Addtl Attending Provider Instructions: Please finish out the tapering course of prednisone of 40mg daily x 5 days and then decrease by 10mg every 5 days until you're back down to your usual dose of 3mg daily. You can use the albuterol inhaler 2 puffs every 4-6 hours as needed for shortness of breath. Your propranolol was discontinued as this may worsen your current condition. It is very important that you follow up with the Verifying Machine Operator within 1 week. You were started on Oxygen therapy to be worn at all times: wear 4L via nasal cannula at rest and turn it up to 6L with walking around. You do have some spots in your bones on your CT scan that are abnormal-please follow up with your PCP regarding any further workup of this. Your INR was still low at 1.7 on the day of discharge. Continue taking coumadin 5mg daily and have your PT/INR checked on Friday. Follow up with your PCP within 2 weeks. Pending Studies at Discharge: No Stand-Alone Forms: [facility] Medications and DC Order Prescriptions: New prednisone 10 mg tablet 40 mg PO DAILY Qty: 50 RF: 0 albuterol sulfate 90 mcg/actuation HFA aerosol inhaler 2 puffs INH .q4-6h PRN (Reason: shortness of breath or wheezing) Qty: 18 RF: 0 Continued clopidogrel 75 mg tablet 75 mg PO DAILY Qty: 90 RF: 3 warfarin 5 mg tablet 5 mg PO DAILY Qty: 180 RF: 3 lisinopril-hydrochlorothiazide 20-25 mg tablet 1 tab PO DAILY Qty: 90 RF: 3 metformin 1,000 mg tablet 1,000 mg PO BID Qty: 180 RF: 3 hydroxyurea 500 mg capsule 500 mg PO BID RF: 0 aspirin [Aspir-81] 81 mg tablet,delayed release (DR/EC) 81 mg PO DAILY Qty: 30 RF: 2 potassium gluconate 595 mg (99 mg) Tablet Extended Release 595 mg PO DAILY RF: 0 prednisone 1 mg tablet 2 mg PO DAILY RF: 0 Discontinued propranolol 60 mg capsule,extended release 24 hr 60 mg PO DAILY Qty: 30 RF: 2 Discharge Orders: Discharge Order (Routine); Ordered 08/14/19 Ordered By: Rosi Trinh Admission Data Admit Date/Time: 08/06/19 21:04 Attending Provider: Rosi Trinh Admit Provider: Ravi Valladares Primary Care Provider: Emeterio Hardin Other Providers: [facility] ; Rosi Trinh ; Ravi Valladares ; Giorgi Coy
== END 2019-08-14 15:37 | disposition home health service (06) | DRG 196 ==
LOC: ED 16:04 → 2E 21:04 → SUATTDRO 21:04 → 2E 22:05 → 2N 08-12 19:51 → 4W 08-14 02:05

== ENCOUNTER 2019-10-25 08:04 | Observation (INO) ==
--- NOTE | 2019-10-25 09:04 | History & Physical Bridge Note ---
Date of Service October 25, 2019 History & Physical Bridge Note I have examined the patient, reviewed the History & Physical and in the interval since the performance of the History & Physical I have noted the following changes of clinical significance: no changes noted
--- NOTE | 2019-10-25 09:05 | Pre Anesthesia Assessment ---
Date of Service October 25, 2019 Pre Sedation Assessment Vital Signs Temp Pulse Resp BP 10/25/19 08:34 97.9 F 70 18 140/68 Cardiovascular RRR, no murmur, no edema Respiratory normal respiratory effort, lungs clear to auscultation Pre-Sedation Airway Assessment Smoking Status: Former smoker Hx Sleep Apnea: No Hx Difficult Intubation: No Short, Thick Neck: No Thyromental Distance: > or= 3.5 Finger Breadths Oral Cavity: + WNL Mallampati Class: III ASA: ASA4 NPO Status Date of Last Intake of Fluids: 10/25/19 Time of Last Intake of Fluids: 05:45 Last Oral Intake of Fluids Comment: sip with meds Date of Last Intake of Solid Food: 10/25/19 Time of Last Intake of Solid Foods: 05:10 Last Intake of Solids Comment: oatmeal Procedure Planning Contraindications for Sedation: none Notes The planned sedation has been discussed with the patient. Informed Consent was obtained. I have identified the patient, determined the appropriateness of sedation and have assessed the patient immediately prior to the procedure. All medicine(s) and interventions are by my order.
[2019-10-25] MEDS ORDERED: HEPARIN (PORCINE) 1000 UNIT/ML 10 ML (CATH LAB USE ONLY) ONE ×2 (09:30→12:26)
[2019-10-25] MEDS ORDERED: fentaNYL citrate 100 MCG/2 ML VIAL ONE (09:30)
[2019-10-25] MEDS ORDERED: MIDAZOLAM HCL 1 MG/ML 2ML VIAL ONE ×2 (09:30→11:10)
[2019-10-25] MEDS ORDERED: NiCARDipine HCL INJ 2.5 MG/ML 10 ML AMP ONE (09:50)
[2019-10-25] MEDS ORDERED: NITROGLYCERIN/D5W 100MCG/ML 20ML SYR ONE (09:50)
[2019-10-25] MEDS ORDERED: CLOPIDOGREL BISULFATE 300 MG TAB ONE (13:16)
--- NOTE | 2019-10-25 15:58 | Post Anesthesia Assessment ---
Date of Service October 25, 2019 Post Sedation Assessment Vital Signs Temp Pulse Resp BP Pulse Ox 10/25/19 15:30 65 18 140/70 96 10/25/19 15:00 65 18 130/80 96 10/25/19 14:45 60 18 135/63 96 10/25/19 14:30 63 18 168/75 H 96 10/25/19 14:15 62 18 155/70 H 96 10/25/19 14:00 61 18 141/68 H 93 10/25/19 13:45 59 L 18 141/68 H 93 10/25/19 13:30 60 18 144/64 H 93 10/25/19 13:15 58 L 16 148/65 H 92 10/25/19 08:34 97.9 F 70 18 140/68 Recovery Score Activity: Moves 4 extremities Respiration: Deep Breath/Cough Circulation: +/-20% PreAnes Value Consciousness: Fully Awake Oxygen Saturation: O2 needed for >90% Post Anesthesia Score: 9 Discharge Sedation Level of Care: Fast Track Phase II Post Sedation Plan On clinical assessment, the patient appears to have tolerated the sedation without complications. Patient is recovering as anticipated. Patient will continue to be monitored by nursing and may be discharged when sedation discharge criteria are met per below protocol. Upon Completions of procedure up to 15 minutes continue every 5 minute vital signs and the P.A.R. score; then discharge to a Phase I or Fast Track to Phase II per the following guidelines: * Discharge Patient to appropriate Phase II area if PAR is 8 or greater or return to pre- procedure baseline. The post - procedure orders will be as directed. * If PAR score is less than 8 or not return to pre-procedure baseline then patient will follow Phase I monitoring till PAR is reached for Phase II. The Phase I may be done in procedure room or may call to secure a Phase I area. * If naloxone or flumazenil are used for reversal, hold in Phase I for continued monitoring from when last reversal dose was given for a minimum of 60 minutes or longer pending the nurse and/or physician discretion of patient condition before discharge to Phase II. Please call the Sedation Physician to re-evaluate and complete post-note for discharge to Phase II area. Do NOT discharge from procedure sedation or Phase 1 until post- sedation evaluation note is complete by procedure /sedation MD Sedation Discharge Instructions to be given to the patient at discharge to home.
[2019-10-25] MEDS ORDERED: ACETAMINOPHEN 325 MG TAB PO PRN (16:02)
[2019-10-25] MEDS ORDERED: ONDANSETRON INJ 2 MG/ML 2 ML VIAL IV PRN (16:02)
--- NOTE | 2019-10-25 16:02 | Post Operative Brief Note ---
PG Immediate Post Op with CF Date of Surgery October 25, 2019 Pre & Post Diagnosis Peripheral arterial disease I identified the patient and participated in the time-out.: Yes Procedure Operation Date: 10/25/19 09:30 Actual Procedures p Cineradiography w/Routine Exam - Edi Ramos MD Surgeon Roddy Ramos MD Dental Hygienist Mobile Coordinator Mabel Estimated Blood Loss 20 Findings Consistent with Post-Op Diagnosis Occluded distal SFA/popliteal. proximal NILAY reconstitutes proximally then with mid segment short occlusion and extends to ankle. mid peroneal reconstitutes in mid segment. distal BLANKBOOK FORWARDER reconstitutes. Post angioplasty to distal SFA/popliteal with RYAN. Post angioplasty to NILAY Anesthesia Type RN Sedation Complications none Disposition Disposition: Recovery Room
[2019-10-25] MEDS ORDERED: SODIUM CHLORIDE 0.9% 1000ML 1,000 ML IV SCH (16:15)
[2019-10-25] MEDS: INSULIN ASPART 100 UNITS/ML 3 ML PEN SC SCH ×2 (17:58→20:35)
[2019-10-25] MEDS ORDERED: GLUCOSE 10 TABS/TUBE PO PRN (18:24)
[2019-10-25] MEDS ORDERED: GLUCAGON FOR INJ 1 MG VIAL SQ PRN (18:24)
[2019-10-25] MEDS ORDERED: GLUCOSE 40% GEL 15 GM TUBE PO PRN (18:24)
[2019-10-25] MEDS ORDERED: DEXTROSE 50% 50 ML SYRINGE IV PRN (18:24)
[2019-10-25] MEDS ORDERED: CARBOHYDRATES FOR HYPOGLYCEMIA PO PRN (18:24)
[2019-10-25] MEDS ORDERED: WARFARIN SOD 5 MG TAB PO SCH (18:30)
[2019-10-25] MEDS ORDERED: PHARMACY GLYCEMIC MGMT CONSULT PRN (18:42)
[2019-10-25] MEDS: HYDROXYUREA 500 MG CAP PO SCH (20:33)
[2019-10-25] MEDS: LISINOPRIL/HCTZ 20/25MG 1 TAB PO SCH (20:33)
--- NOTE | 2019-10-25 23:20 | Operative Report ---
PG Post Operative Report Pre & Post Diagnosis Peripheral arterial disease I identified the patient and participated in the time-out.: Yes Procedure Operation Date: 10/25/19 09:30 Actual Procedures p Cineradiography w/Routine Exam - Edi Ramos MD Surgeon Roddy Ramos MD Rib Stiffener And Heel Dipper Mabel Estimated Blood Loss 20 Findings See Below Aortacalcified, no significant aneurysmal or stenotic disease Right lower extremity Iliacs calcified, mild external disease. CARPET FLOOR LAYER APPRENTICE widely patent SFA heavily calcified, mild to moderate diffuse proximal to mid disease, diffuse up to 60% distal disease 100% stenosis at the juncture of distal SFA/popliteal, popliteal completely occluded Proximal NILAY reconstitutes prior to short mid segment occlusion and then widely patent to the ankle Mid peroneal reconstitutes and widely patent to the ankle where gives off ad ditional collaterals to CONCRETE SWIMMING POOL INSTALLER Distal CONCRETE SWIMMING POOL INSTALLER fills briskly via collaterals and gives of medial and lateral plantar arteries Left lower extremity Iliacs calcified, widely patent CARPET FLOOR LAYER APPRENTICE with mild calcified disease Specimens None Drains None Anesthesia Type RN Sedation Complications none Disposition Disposition: Recovery Room Indications Critical limb ischemia, right great toe ulceration Description of Procedure Left common femoral access obtained with micropuncture under ultrasound guidance, short 5Fr sheath place Proximal right lower extremity angiogram performed with RIM catheter Distal angiography with seeker catheter placed to SFA 5 Fr 45 cm destination sheath placed from left CARPET FLOOR LAYER APPRENTICE to right CARPET FLOOR LAYER APPRENTICE Able to wire cross popliteal occlusion into anterior tibial artery with glide advantage wire and seeker catheter Mid NILAY occlusion crossed with command and regalia wire Eventually able to cross mid NILAY occlusion with Corsair catheter. Distal intraluminal position confirmed via injection through Corsair Regalia wire exchanged for mailman wire NILAY dilated with 2.0 and 3.0 balloons Popliteal dilated with 4.0 and 6.0 balloons Distal SFA/popliteal treated with 6.0 x 220 mm Lutonix drug-eluting balloon Residual distal popliteal, proximal NILAY stenosis dilated with 5.0 balloon IA vasodilators administered SFA/popliteal and anterior tibial arteries well-expanded with brisk single- vessel runoff to ankle via anterior tibial artery. No evidence of significant dissection DPA with severe proximal disease. Tapers in the forefoot. Contrast used: 175 ml Visipaque Access closure: Star close Summary: 1. Right lower extremity with mild to moderate proximal/mid SFA disease. Distal SFA/popliteal 100% occluded. NILAY reconstitutes proximally, peroneal reconstitutes in the midsegment, robust collaterals to distal CONCRETE SWIMMING POOL INSTALLER which extended into medial/lateral plantar arteries. 2. Successful angioplasty of distal SFA/popliteal occlusion with 6.0 x 220 mm drug-eluting balloon (lutonix). 3. Successful angioplasty of anterior tibial artery with 5.0 balloon proximally, 3.0 balloon to mid and distal segments with resulting inline flow to the dorsalis pedis artery. Recommendations: Continue extended triple therapy with aspirin, clopidogrel and Coumadin Continue treatment at [facility] Repeat vascular testing in 2 weeks. If toe pressures not significantly improved consider intervention to dorsalis pedis artery or retrograde intervention to posterior tibial artery. I attest to the content of the Intraoperative Record and any orders documented therein. Any exceptions are noted below.
[2019-10-26] MEDS ORDERED: INSULIN ASPART 100 UNITS/ML 3 ML PEN SC SCH (02:00)
[2019-10-26 06:57] LABS: Hematocrit (blood only) 37.1 % (42-52); Hemoglobin 11.4 g/dL (14.0-18.0)
[2019-10-26 07:07] LABS: INR 1.1 (0.9-1.1); Prothrombin Time 11.4 Seconds (9.0-12.0)
[2019-10-26 07:25] LABS: BUN Creatinine Ratio 20.7 (10-20); Calcium 8.2 mg/dl (8.5-10.1); Creatinine Clr Calc Pharmacy 49.1 ml/min; Est GFR (African American) 67.8; Est GFR (Non-African American) 58.5
[2019-10-26 08:03] VITALS: BP 133/75; TEMP 97.9; O2SAT 94
[2019-10-26] MEDS ORDERED: ENOXAPARIN 1 MG/KG SQ SCH (08:30)
[2019-10-26] MEDS: INSULIN ASPART 100 UNITS/ML 3 ML PEN SC SCH (08:40)
[2019-10-26 08:44] LABS: Estimated Average Glucose 143 mg/dl; Hemoglobin A1C 6.6 % (4.5-5.6)
[2019-10-26] MEDS: HYDROXYUREA 500 MG CAP PO SCH (08:46)
[2019-10-26] MEDS: LISINOPRIL/HCTZ 20/25MG 1 TAB PO SCH (08:47)
[2019-10-26] MEDS ORDERED: LANTUS PER UNIT CHARGE SQ ONE (09:00)
[2019-10-26] MEDS ORDERED: predniSONE 10 MG TABLET PO SCH (09:00)
[2019-10-26] MEDS ORDERED: ENOXAPARIN 80 MG/0.8 ML SYR SQ SCH (09:00)
[2019-10-26] MEDS ORDERED: ASPIRIN 81 MG ECTAB PO SCH (09:00)
[2019-10-26] MEDS ORDERED: predniSONE 1 MG TAB PO SCH (09:00)
[2019-10-26] MEDS ORDERED: CLOPIDOGREL BISULFATE 75 MG TAB PO SCH (09:00)
[2019-10-26 09:05] VITALS: PULSE 67
--- NOTE | 2019-10-28 13:18 | Discharge Summary ---
Date of Service October 28, 2019 Admission HPI Per Admitting Provider Mr. Mazariegos is a very pleasant 79-year-old man with a history of type 2 diabetes, hypertension, hyperlipidemia, prior history of DVT (post THR while on prophylaxis dose xarelto), polycythemia vera on Hydrea, BPH with recent urologic surgery for obstructive bladder stones and peripheral artery disease status stats post left SFA/popliteal interventions now with new ulceration involving the distal aspect of his great toe on his right foot who presented for right lower extremity angiogram. Specialty Data Cardiology 1. Right lower extremity with mild to moderate proximal/mid SFA disease. Distal SFA/popliteal 100% occluded. NILAY reconstitutes proximally, peroneal reconstitutes in the midsegment, robust collaterals to distal FOREIGN POLICY OFFICER which extended into medial/lateral plantar arteries. 2. Successful angioplasty of distal SFA/popliteal occlusion with 6.0 x 220 mm drug-eluting balloon (lutonix). 3. Successful angioplasty of anterior tibial artery with 5.0 balloon proximally, 3.0 balloon to mid and distal segments with resulting inline flow to the dorsalis pedis artery. Discharge Data Procedures Performed Operation Date: 10/25/19 09:30 Actual Procedures s Cineradiography w/Routine Exam - Edi Ramos MD p Angio Extremity Unilateral - Edi Ramos MD s SC Select Cath ALEP 3rd Order - Edi Ramos MD s Tibial Peroneal Balloon - Edi Ramos MD s Placement Art Occlusive Device - Edi Ramos MD p Cath, Left with Cors and Vent - Edi Ramos MD Hospital Course (1) Peripheral artery disease: Patient underwent right lower extremity angiogram via left common femoral artery. Was found to have an occluded popliteal artery along with severe occlusive tibial vessel disease. Underwent successful angioplasty of distal SFA/popliteal occlusion with a 6.0 x 220 mm drug-eluting balloon. Also underwent angioplasty of his anterior tibial artery. Result of procedure with inline flow to foot via NILAY. Post procedure in holding area had a residual hematoma following closure device. Improvement with prolonged manual hold. In the setting of his comorbidities prior bleeding with procedures was admitted for observation. Overnight no evidence of additional access site complications. Denied significant pain. Telemetry unremarkable. Post procedure labs stable. In the setting of patient's known hypercoagulability and prior post intervention acute thrombosis was discharged on Lovenox bridge to Coumadin. Will continue on Coumadin 7.5 mg until repeat INR on 10/29/2019. Continue aspirin, clopidogrel. Follow-up TBI in 2 weeks. Continue follow-up with wound care center. Discharge Instructions Home Medications aspirin 81 mg tablet,delayed release 81 mg PO DAILY #30 tab 03/17/19 [Rx Confirmed 10/19/19] potassium gluconate 595 mg PO DAILY 08/06/19 [History Confirmed 10/19/19] hydroxyurea 500 mg capsule 500 mg PO BID 08/07/19 [History Confirmed 10/19/19] furosemide 20 mg tablet 20 mg PO DAILY #30 tab 09/02/19 [Rx Confirmed 10/19/19] lisinopril 20 mg-hydrochlorothiazide 25 mg tablet 1 tab PO DAILY #90 tab 09/03/19 [Rx Confirmed 10/19/19] mupirocin 2 % topical ointment 1 appln TOP BID #30 gm 09/20/19 [Rx Confirmed 10/19/19] prednisone 10 mg tablet 10 mg PO DAILY #100 tab 09/20/19 [Rx Confirmed 10/19/19] clopidogrel 75 mg tablet 75 mg PO DAILY #90 tab 09/21/19 [Rx Confirmed 10/19/19] glipizide 5 mg tablet, extended release 24 hr 5 mg PO DAILY #90 tab 10/04/19 [Rx Confirmed 10/19/19] blood sugar diagnostic #100 ea 10/21/19 [Rx] Enoxaparin 1 Mg/Kg [Lovenox 1 Mg/Kg Providers Use Dosing Set] 60 mg SQ Q12H 4 Days #8 unit 10/26/19 [Rx] warfarin 7.5 mg PO DAILY #180 tab 10/26/19 [Rx Confirmed 10/19/19] Coding Level of Care Code 90066 OBS Care - Discharge Diagnoses Peripheral artery disease I73.9
== END 2019-10-26 10:57 | disposition home or self-care (01) ==
LOC: CC 08:04 → 2S 08:04
PROC: CLB.AEU (2019-10-25 09:30)

== ENCOUNTER 2020-02-03 17:42 | Inpatient (IN) ==
[2020-02-03] MEDS ORDERED: VANCOMYCIN CONSULT ACTIVE PRN (18:01)
[2020-02-03] MEDS ORDERED: VANCOMYCIN HCL 1,250 MG in SODIUM CHLORIDE 0.9% 500 ML IV ONE (18:01)
[2020-02-03] MEDS ORDERED: PIPERACILL/TAZOBAC CONSULT ACTIVE PRN (18:01)
[2020-02-03] MEDS ORDERED: PIPERACILLIN/TAZOBACTAM 4.5 GM/120 ML BAG IV ONE (18:01)
--- NOTE | 2020-02-03 18:08 | Emergency Department Note ---
Impression & Plan Osteomyelitis of foot ED Provider Note NAME: QUIRINO HOPE AGE: 79 SEX: M : 1940 ARRIVES VIA: Walk-In INFORMANT: Patient, ED PROVIDER(S): Cesar Martinez DO CHIEF COMPLAINT: Right foot pain HPI: The patient is an 79-year-old male who presented to the emergency department with a family member for an evaluation of right foot pain. The patient had 2 procedures on his right foot both for toe amputations. He had his right great toe and his right second toe amputated by an orthopedic physician in our facility. The first procedure was done in November and the second procedure was done in January. The patient was placed in a walking boot and had some rubbing noted of the right side of his foot. He started noticing ulceration but over the last few days has noticed ulceration as well as drainage. He is not currently on an antibiotic. He denies having any chest pain or trouble breathing. He does have symmetric swelling of the foot but no swelling up into the calf. He is not had any recent traumas. He was not seen by his primary care physician for these complaints. The patient states that he has pain over the area especially with any walking. ROS: See above HPI for pertinent positives & negatives. A total of 10 systems reviewed and were otherwise negative. PAST MEDICAL HISTORY: See Below PAST SURGICAL HISTORY: See Below FAMILY HISTORY: See Below SOCIAL HISTORY: See Below HOME MEDICATIONS: See Below ALLERGIES: See Below VITALS: See Below PHYSICAL EXAMINATION: GENERAL: Patient is awake alert in no acute distress patient is resting comfortably and showing no signs of anxiety EYES: The conjunctivae are clear. The pupils are round and reactive. EARS, NOSE, MOUTH AND THROAT: The nose is without any evidence of any deformity. Mucous membranes are moist. Tongue is midline. NECK: The neck is nontender and supple. RESPIRATORY: Diminished breath sounds are noted throughout. There is mild tachypnea and mild conversational dyspnea noted. CARDIOVASCULAR: Irregular rhythm was noted to auscultation. There was a systolic murmur suggested. GASTROINTESTINAL: The abdomen is soft. Abdomen is nontender. MUSCULOSKELETAL/EXTREMITIES: There is no evidence of gross deformity full range of motion is noted in the hips and shoulders. SKIN: There is swelling over the right foot. There was a wound dressing in place which was removed. There is an ulcerated area on the lateral aspect of the right foot. It overlies the distal aspect of the fifth metatarsal head. There is purulent drainage noted. Wound sutures are still in place. There is mild erythema noted to the dorsum of the foot. NEUROLOGIC: Patient is awake alert and oriented x3. MEDICAL DECISION MAKING: The patient is an 79-year-old male who presented to the emergency department for right foot pain and drainage. The patient was found to have signs of osteomyelitis on x-ray. He does have a history of diabetes as well as chronic lung disease. He was treated with IV antibiotics in the emergency department. He was also given IV pain medication. I discussed the patient's laboratory and radiographic studies with him. I also discussed his case with the on-call [facility] hospitalist group. They have agreed to evaluate the patient in the emergency department for further management and disposition. Triage Nursing notes reviewed. Prior medical records reviewed Vital Signs: reviewed and remarkable for hypotension. Differential diagnosis: Cellulitis, abscess, MRSA infection, DVT, necrotizing fasciitis, dermatitis, drug eruption, allergic reaction, as well as other pathologies. ER treatment provided: See below Diagnostics interpreted by me: ECG: none Cardiac Monitoring: An order was placed for continuous cardiac monitoring. The monitor shows a rate of 88 with sinus rhythm. Laboratory studies: As stated above and show below. Imaging studies: See below Consultation(s): 2009: The [facility] hospitalist group was notified about the patient's condition. ED COURSE: Procedures: none Critical Care: None Past Med/Surg History Medical History Aortic valve stenosis Mild to moderate on 07/2019 echo (but GUY 0.92cm2) follows with Dr. Roddy Ramos Arteriosclerotic cardiovascular disease (ASCVD) Benign hypertension (09/14/12) Cardiac murmur Chronic diastolic CHF (congestive heart failure) Per records Diabetes mellitus, type 2 Sugar fluctuates History of bladder cancer 2003--sx and "treatments" History of skin cancer Hyperlipidemia (09/14/12) Idiopathic interstitial pneumonia On chronic O2. Currently on steroids. residential current use of systemic steroids On anticoagulant therapy plavix and warfarin daily On home oxygen therapy 3L N/C at all times Peripheral arterial disease Does have stents and history of angioplasty to bilateral LEs - follows with Dr Ramos; on 10/25/19- pt had angioplasty to RT distal SFA, Pop A, NILAY. 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 Woodall Rheumatoid arthritis SDH (subdural hematoma) October 2019. Admitted [facility] for traumatic SDH 2/2 mechanical fall -- fall also resulted in R prosthetic hip dislocation, s/p reduction. No surgical tx needed for SDH per neurosurgery recommendations Secondary pulmonary hypertension Tremor Bilateral hands- improved Surgical History Amputated toe of left foot History of bilateral cataract extraction History of bladder surgery removal of cancerous tumor History of colonoscopy History of cystoscopy multiple History of Mohs micrographic surgery for skin cancer x2 History of procedure for peripheral vascular disease bilt lower extremities--3 stents in left LE History of right hip replacement (Acute) History of testicular surgery left for hydrocele History of tooth extraction all teeth Family History Family/Other Coronary heart disease Cancer Family/Other Heart disease Cancer Mother Family history of diabetes mellitus Brother Family history of diabetes mellitus Brother Family history of diabetes mellitus Sister Family history of diabetes mellitus Sister Family history of diabetes mellitus Other No family history of adverse response to anesthesia Social History Preferred Language: Upper Sorbian Communication Ability: Effective Blue Print Control Clerk Required: No Beliefs That Will Affect Care: None marital status: / Current Living Situation: Alone current occupational status: retired Feels Safe at Home: Yes Smoking Status: Former smoker Cigarettes Per Day: 1 PPD smoked for 15 years quit in 1974 ; Second Hand Exposure: No ; Hx Alcohol Use: No Hx Substance Use: No during the past year weight has: remained stable Allergies Allergies Allergy/AdvReac Type Severity Reaction Status Date / Time Sulfa (Sulfonamide Allergy Intermediate HIVES Verified 02/03/20 20:13 Antibiotics) atorvastatin AdvReac Mild LEG CRAMPS Verified 02/03/20 20:13 cilostazol AdvReac Mild DIARRHEA Verified 02/03/20 20:13 Home Meds Home Medications Medication Instructions Recorded Confirmed potassium gluconate 595 mg PO PM 08/06/19 02/03/20 hydroxyurea 500 mg capsule 500 mg PO BID 08/07/19 02/03/20 aspirin [Aspir-81] 81 mg PO HS 11/01/19 02/03/20 clopidogrel 75 mg PO PM 11/01/19 02/03/20 glipizide [Glucotrol XL] 5 mg PO BID 11/01/19 02/03/20 ibuprofen 200 mg PO Q6H PRN 11/01/19 02/03/20 lisinopril-hydrochlorothiazide 1 tab PO QAM 11/01/19 02/03/20 warfarin 7.5 mg PO PM 11/01/19 02/03/20 metformin 1,000 mg PO BID 11/11/19 02/03/20 mupirocin 1 appln TOP BID PRN 11/11/19 02/03/20 prednisone 1 mg tablet 3 mg PO QPM 12/27/19 02/03/20 Previous Rx's Medication Instructions Recorded blood sugar diagnostic #100 ea 10/21/19 furosemide 20 mg tablet 20 mg PO QAM #90 tab 12/22/19 oxycodone 5 mg PO Q6H PRN #10 cap 01/14/20 Results & Data (ED) Vital Signs Vital Signs - 24 hr 02/03/20 17:47 02/03/20 18:38 02/03/20 18:43 Temperature 36.5 C Temperature Source Oral Pulse Rate 86 66 65 Pulse Rate from SpO2 Sensor 67 65 Respiratory Rate 22 19 15 Respiratory Effort / Characteristics Non-Labored Spontaneous Respiratory Depth Normal Respiratory Pattern Regular Blood Pressure 113/66 114/59 L Blood Pressure Mean 81 79 Pulse Oximetry 87 L 97 96 Oxygen Delivery Method Nasal Cannula Oxygen Flow Rate 4 Sepsis Recent Fever Within 48 Hours No Sepsis Action Taken by Nursing No Action Required 02/03/20 19:00 02/03/20 19:30 02/03/20 20:00 Temperature Temperature Source Pulse Rate 65 64 71 Pulse Rate from SpO2 Sensor 67 63 71 Respiratory Rate 20 20 19 Respiratory Effort / Characteristics Respiratory Depth Respiratory Pattern Blood Pressure 118/59 L 131/55 L Blood Pressure Mean 83 86 Pulse Oximetry 96 95 90 Oxygen Delivery Method Nasal Cannula Nasal Cannula Nasal Cannula Oxygen Flow Rate 5 5 5 Sepsis Recent Fever Within 48 Hours Sepsis Action Taken by Nursing 02/03/20 20:30 02/03/20 21:00 Temperature Temperature Source Pulse Rate 61 67 Pulse Rate from SpO2 Sensor 62 Respiratory Rate 16 13 Respiratory Effort / Characteristics Respiratory Depth Respiratory Pattern Blood Pressure 124/57 L 114/56 L Blood Pressure Mean 83 76 Pulse Oximetry 93 Oxygen Delivery Method Nasal Cannula Oxygen Flow Rate 5 Sepsis Recent Fever Within 48 Hours Sepsis Action Taken by [facility] Medications Current Medication List: was personally reviewed by me Laboratory Data Attestation: I reviewed the patient's lab results. Result diagrams: 02/03/20 18:18 02/03/20 18:18 Lab Results 02/03/20 02/03/20 02/03/20 Range/Units 18:18 18:18 18:18 WBC 17.54 H (4.8-10.8) K/uL RBC 3.07 L (4.7-6.1) M/uL Hgb 8.0 L (14.0-18.0) g/dL Hct 28.8 L (42-52) % MCV 93.8 (80-100) fL MCH 26.1 (25-34) pg MCHC 27.8 L (32-36) g/dL RDW Std Deviation 62.5 H (36.4-46.3) fL RDW Coeff of Dru 19.1 H (11.5-14.5) % Plt Count 308 (130-400) K/uL MPV 10.9 H (7.4-10.4) fL Immature Gran % (Auto) 0.7 % Neut % (Auto) 85.6 % Lymph % (Auto) 8.7 % Murray % (Auto) 4.0 % Eos % (Auto) 0.8 % Baso % (Auto) 0.2 % Neut # (Auto) 15.01 H (1.4-6.5) K/uL Lymph # (Auto) 1.52 (1.2-3.4) K/uL Murray # (Auto) 0.71 H (0.11-0.59) K/uL Eos # (Auto) 0.14 (0-0.5) K/uL Baso # (Auto) 0.04 (0-0.2) K/uL Immature Gran # (Auto) 0.12 H (0.00-0.02) K/uL ESR 22 H (0-14) mm/hr PT 20.0 H (9.0-12.0) Seconds INR 2.0 H (0.9-1.1) APTT 34.4 H (21.0-31.0) Seconds PTT Ratio 1.2 Sodium (136-145) mmol/L Potassium (3.5-5.1) mmol/L Chloride (98-107) mmol/L Carbon Dioxide (21-32) mmol/L Anion Gap (3-11) BUN (7-18) mg/dl Creatinine (0.6-1.4) mg/dl Est Cr Clr Drug Dosing ml/min Est GFR ( Amer) Est GFR (Non-Af Amer) BUN/Creatinine Ratio (10-20) Glucose (70-99) mg/dl Calcium (8.5-10.1) mg/dl Total Bilirubin (0.2-1) mg/dl AST (15-37) U/L ALT (12-78) U/L Alkaline Phosphatase (45-117) U/L C-Reactive Protein (0-0.29) mg/dl Total Protein (6.4-8.2) gm/dl Albumin (3.4-5.0) gm/dl Globulin (2.5-4.0) gm/dl Albumin/Globulin Ratio (0.9-2) Procalcitonin (0-0.5) ng/ml 02/03/20 02/03/20 Range/Units 18:18 18:18 WBC (4.8-10.8) K/uL RBC (4.7-6.1) M/uL Hgb (14.0-18.0) g/dL Hct (42-52) % MCV (80-100) fL MCH (25-34) pg MCHC (32-36) g/dL RDW Std Deviation (36.4-46.3) fL RDW Coeff of Dru (11.5-14.5) % Plt Count (130-400) K/uL MPV (7.4-10.4) fL Immature Gran % (Auto) % Neut % (Auto) % Lymph % (Auto) % Murray % (Auto) % Eos % (Auto) % Baso % (Auto) % Neut # (Auto) (1.4-6.5) K/uL Lymph # (Auto) (1.2-3.4) K/uL Murray # (Auto) (0.11-0.59) K/uL Eos # (Auto) (0-0.5) K/uL Baso # (Auto) (0-0.2) K/uL Immature Gran # (Auto) (0.00-0.02) K/uL ESR (0-14) mm/hr PT (9.0-12.0) Seconds INR (0.9-1.1) APTT (21.0-31.0) Seconds PTT Ratio Sodium 141 (136-145) mmol/L Potassium 3.7 (3.5-5.1) mmol/L Chloride 111 H (98-107) mmol/L Carbon Dioxide 23 (21-32) mmol/L Anion Gap 7.0 (3-11) BUN 32 H (7-18) mg/dl Creatinine 1.24 (0.6-1.4) mg/dl Est Cr Clr Drug Dosing 45.3 ml/min Est GFR ( Amer) 63.2 Est GFR (Non-Af Amer) 54.6 BUN/Creatinine Ratio 25.4 H (10-20) Glucose 105 H (70-99) mg/dl Calcium 8.4 L (8.5-10.1) mg/dl Total Bilirubin 0.3 (0.2-1) mg/dl AST 32 (15-37) U/L ALT 23 (12-78) U/L Alkaline Phosphatase 99 (45-117) U/L C-Reactive Protein 0.58 H (0-0.29) mg/dl Total Protein 7.1 (6.4-8.2) gm/dl Albumin 3.0 L (3.4-5.0) gm/dl Globulin 4.1 H (2.5-4.0) gm/dl Albumin/Globulin Ratio 0.7 L (0.9-2) Procalcitonin 0.13 (0-0.5) ng/ml Administered Medications Aspirin (Ecotrin Ectab) 81 mg PO HS RA Stop: 03/04/20 22:28 Last Admin: 02/03/20 23:56 Dose: 81 mg Documented by: [id number] Clopidogrel Bisulfate (Plavix) 75 mg PO PM RA Stop: 03/04/20 22:28 Last Admin: 02/03/20 23:56 Dose: 75 mg Documented by: [id number] Methylprednisolone 40 mg/ (Syringe) 0.64 mls @ 1.5 mls/min IV Q12H RA Stop: 03/04/20 22:59 Last Admin: 02/03/20 23:56 Dose: 1.5 mls/min Documented by: [id number] Piperacillin Sod/Tazobactam (Sod 3.375 gm/ Dextrose) 115 mls @ 28.75 mls/hr IV Q8H RA; Protocol Stop: 02/11/20 00:00 Last Admin: 02/03/20 23:56 Dose: 28.8 mls/hr Documented by: [id number] Miscellaneous Information (Consult) 1 ea N/A UD PRN PRN Reason: Consult Stop: 03/04/20 18:00 Last Admin: 02/03/20 19:29 Dose: 1 ea Documented by: [id number] Miscellaneous Information (Consult) 1 ea N/A UD PRN PRN Reason: Consult Stop: 03/04/20 18:00 Last Admin: 02/03/20 19:29 Dose: 1 ea Documented by: [id number] Oxycodone HCl (Roxicodone Immediate Rel) 5 mg PO Q6H PRN PRN Reason: Pain Stop: 02/17/20 22:35 Last Admin: 02/03/20 23:54 Dose: 5 mg Documented by: [id number] Discontinued Medications Fentanyl Citrate (Fentanyl Citrate) 50 mcg IV Q15M PRN PRN Reason: Pain Stop: 02/17/20 19:22 Last Admin: 02/03/20 19:29 Dose: 50 mcg Documented by: [id number] Piperacillin Sod/Tazobactam Sod (Zosyn) 4.5 gm in 120 mls @ 240 mls/hr IV NOW ONE Stop: 02/03/20 18:30 Last Infusion: 02/03/20 19:13 Dose: 0 mls/hr Documented by: [id number] Admin: 02/03/20 18:40 Dose: 240 mls/hr Documented by: [id number] Vancomycin HCl 1,250 mg/ (Sodium Chloride) 525 mls @ 200 mls/hr IV NOW ONE Stop: 02/03/20 20:38 Last Infusion: 02/03/20 21:18 Dose: 0 mls/hr Documented by: [id number] Admin: 02/03/20 18:40 Dose: 200 mls/hr Documented by: [id number] Sodium Chloride (Nss 1000ml) 500 mls @ 999 mls/hr IV .Q31M ONE Stop: 02/03/20 19:53 Last Infusion: 02/03/20 20:10 Dose: 0 mls/hr Documented by: [id number] Admin: 02/03/20 19:30 Dose: 999 mls/hr Documented by: [id number] Ondansetron HCl (Zofran) 4 mg IV NOW STA Stop: 02/03/20 19:24 Last Admin: 02/03/20 19:29 Dose: 4 mg Documented by: [id number] Imaging Data Radiologist's Impression: XR foot RT min 3V routine CLINICAL HISTORY: infection COMPARISON: 11/01/2019 DISCUSSION: Interval amputation of the phalanges of the second toe, as well as the tuft of the distal phalanx of the great toe. Current study demonstrates bony erosive changes involving the distal fifth metatarsal as well as the proximal phalanx of the fifth toe at its base. Mild generalized soft tissue edema IMPRESSION: 1. Osteomyelitis distal aspect fifth metatarsal as well as base of proximal phalanx fifth toe. 2. Interval operative changes consistent with resection of the phalanges of the second toe as well as the tuft of the distal phalanx of the great toe. ACT 112: Negative or not required by law. The above report was generated using voice recognition software. It may contain grammatical, syntax or spelling errors. Electronically signed by: Shun Batista M.D. 02/03/2020 6:54 PM Dictated: 02/03/201851 Transcribed: 02/03/201851 XR chest 1V portable CLINICAL HISTORY: desaturation dyspnea COMPARISON STUDY: 01/10/2020 FINDINGS: Progressive interstitial change superimposed upon pre-existing chronic interstitial and/or fibrotic change. Heart remains mildly enlarged. Slightly progressive superimposed bibasilar infiltrative change. IMPRESSION: Mildly progressive interstitial edema versus diffuse bilateral interstitial infiltrative change. ACT 112: Negative or not required by law. The above report was generated using voice recognition software. It may contain grammatical, syntax or spelling errors. Electronically signed by: Shun Batista M.D. 02/03/2020 8:43 PM Dictated: 02/03/202041 Transcribed: 02/03/202041 Blood Pressure Blood Pressure Findings: Low blood pressure Discharge Plan Visit Data *Final* Discharge Date/Time: 02/03/20 21:58 Chief Complaint: Foot Injury/Pain Stated Complaint: SORE ON LT FOOT ED Provider: Cesar Martinez Discharge Problem: Osteomyelitis of foot Patient Disposition: Admitted As Inpatient Condition: Good Discharge Instructions Interventions: ED Discharge Assessment Last Done: 02/03/20 21:58 Discharge Problem: Osteomyelitis of foot Qualifiers: Osteomyelitis type: unspecified type Laterality: right Qualified Code(s): M86.9 - Osteomyelitis, unspecified
[2020-02-03 18:45] LABS: Basophils # (auto) 0.04 K/uL (0-0.2); Basophils % (auto) 0.2 %; Eosinophils # (auto) 0.14 K/uL (0-0.5); Eosinophils % (auto) 0.8 %; Hematocrit (blood only) 28.8 % (42-52); Immature Granulocytes # (auto) 0.12 K/uL (0.00-0.02); Immature Granulocytes % (auto) 0.7 %; Lymphocytes # (auto) 1.52 K/uL (1.2-3.4); Lymphocytes % (auto) 8.7 %; Mean Corpuscular Hemoglobin 26.1 pg (25-34); Mean Corpuscular Hgb Conc 27.8 g/dL (32-36); Mean Corpuscular Volume 93.8 fL (80-100); Mean Platelet Volume 10.9 fL (7.4-10.4); Monocytes # (auto) 0.71 K/uL (0.11-0.59); Neutrophils # (auto) 15.01 K/uL (1.4-6.5); Neutrophils % (auto) 85.6 %; Platelet Count 308 K/uL (130-400); RDW Coefficient of Variation 19.1 % (11.5-14.5); RDW Standard Deviation 62.5 fL (36.4-46.3); Red Blood Count 3.07 M/uL (4.7-6.1); White Blood Count 17.54 K/uL (4.8-10.8)
[2020-02-03 18:55] LABS: Partial Thromboplastin Ratio 1.2; Partial Thromboplastin Time 34.4 Seconds (21.0-31.0)
--- NOTE | 2020-02-03 18:56 | XRay Report ---
XR foot RT min 3V routine CLINICAL HISTORY: infection COMPARISON: 11/01/2019 DISCUSSION: Interval amputation of the phalanges of the second toe, as well as the tuft of the distal phalanx of the great toe. Current study demonstrates bony erosive changes involving the distal fifth metatarsal as well as the proximal phalanx of the fifth toe at its base. Mild generalized soft tissue edema IMPRESSION: 1. Osteomyelitis distal aspect fifth metatarsal as well as base of proximal phalanx fifth toe. 2. Interval operative changes consistent with resection of the phalanges of the second toe as well as the tuft of the distal phalanx of the great toe. ACT 112: Negative or not required by law. The above report was generated using voice recognition software. It may contain grammatical, syntax or spelling errors. Electronically signed by: Shun Batista M.D. 02/03/2020 6:54 PM
[2020-02-03 18:58] LABS: BUN Creatinine Ratio 25.4 (10-20); Calcium 8.4 mg/dl (8.5-10.1); Creatinine Clr Calc Pharmacy 45.3 ml/min; Est GFR (African American) 63.2; Est GFR (Non-African American) 54.6; Potassium 3.7 mmol/L (3.5-5.1)
[2020-02-03 19:01] LABS: Albumin Globulin Ratio 0.7 (0.9-2); Bilirubin,Total 0.3 mg/dl (0.2-1); C Reactive Protein 0.58 mg/dl (0-0.29); Globulin 4.1 gm/dl (2.5-4.0); Total Protein 7.1 gm/dl (6.4-8.2)
[2020-02-03] MEDS ORDERED: ONDANSETRON INJ 2 MG/ML 2 ML VIAL IV STA (19:23)
[2020-02-03] MEDS ORDERED: fentaNYL citrate 100 MCG/2 ML VIAL IV PRN (19:23)
[2020-02-03] MEDS ORDERED: SODIUM CHLORIDE 0.9% 1000ML 500 ML IV ONE (19:23)
--- NOTE | 2020-02-03 20:44 | XRay Report ---
XR chest 1V portable CLINICAL HISTORY: desaturation dyspnea COMPARISON STUDY: 01/10/2020 FINDINGS: Progressive interstitial change superimposed upon pre-existing chronic interstitial and/or fibrotic change. Heart remains mildly enlarged. Slightly progressive superimposed bibasilar infiltrat dev change. IMPRESSION: Mildly progressive interstitial edema versus diffuse bilateral interstitial infiltrative change. ACT 112: Negative or not required by law. The above report was generated using voice recognition software. It may contain grammatical, syntax or spelling errors. Electronically signed by: Shun Batista M.D. 02/03/2020 8:43 PM
[2020-02-03] MEDS ORDERED: ACETAMINOPHEN 325 MG TAB PO PRN (22:29)
[2020-02-03] MEDS ORDERED: POLYETHYLENE (MIRALAX) 17 GM PACK PO PRN (22:29)
[2020-02-03] MEDS ORDERED: ALBUT/IPRATROP 3MG/0.5MG NEB 3 ML VIAL NEB PRN (22:29)
[2020-02-03] MEDS ORDERED: ALUMINUM/MAGNESIUM SUSP 30 ML UDC PO PRN (22:29)
[2020-02-03] MEDS ORDERED: MAGNESIUM HYDROXIDE SUSP 30 ML UDC PO PRN (22:29)
[2020-02-03] MEDS ORDERED: ONDANSETRON INJ 2 MG/ML 2 ML VIAL IV PRN (22:29)
[2020-02-03] MEDS ORDERED: PHARMACY GLYCEMIC MGMT CONSULT PRN (22:34)
[2020-02-03] MEDS ORDERED: OXYCODONE HCL IR 5 MG TAB (IMMEDIATE RELEASE) PO PRN (22:36)
[2020-02-03] MEDS ORDERED: CARBOHYDRATES FOR HYPOGLYCEMIA PO PRN (23:15)
[2020-02-03] MEDS ORDERED: INSULIN GLARGINE SOLOSTAR 100 UNITS/ML 3 ML PEN SC ONE (23:15)
[2020-02-03] MEDS ORDERED: GLUCOSE 40% GEL 15 GM TUBE PO PRN (23:15)
[2020-02-03] MEDS ORDERED: GLUCOSE 10 TABS/TUBE PO PRN (23:15)
[2020-02-03] MEDS ORDERED: DEXTROSE 50% 50 ML SYRINGE IV PRN (23:15)
[2020-02-03] MEDS ORDERED: GLUCAGON FOR INJ 1 MG VIAL SQ PRN (23:15)
--- NOTE | 2020-02-03 23:38 | History & Physical Report ---
Date of Service February 03, 2020 Assessment & Plan Admission and Anticipated Discharge Date Admission Date: February 03, 2020 79 yo M w/ pMHx. of HTN, PAD, HFpEF, DM II, H/O bladder Cancer, SDH (mechanical fall October 2019) presenting for right lateral foot lesion w/ osteomyelitis right foot osteomyelitis s/p amputation X2 - XR w/ osteomyelitis seen at the right 5th metatarsal and proximal 5th toe - started on broad coverage w/ Vancomycin and zosyn - blood cultures and wound cultures obtained, narrow abx. with culture results - order placed for PICC line - consulted orthopedics, this may ultimately be set up in the future - continued anticoagulation Acute hypoxia in the setting of interstitial lung disease - CXR w/ Mildly progressive interstitial edema versus diffuse bilateral interstitial infiltrative change. - stress dosing w/ Solumedrol 40 mg Q12H since patient is on chronic prednisone and cough have adrenal insufficiency - humidified oxygen 5L NC currently, 4-5L at home - ordered duonebs PAD s/p stent and balloon angioplasty - on ASA, Clopidogrel and warfarin HFpEF, EF 60-65% Jul, 2019 - continue home lasix Intermittent V-tach overnight - ordered EKG - ordered 40 oral K, K-rider X1 DM II - carb consistent diet - held home oral agents - glycemic consult placed DVT: Warfarin Diet: carb consistent dispo: med/surg tele due to oxygen requirement History of Present Illness Chief Complaint: foot pain Primary Care Provider: Emeterio Hardin MD Mr. Edy Mazariegos is a 79 yo M who is coming in because his home health nurse had noticed that he had drainage and odor on his right lateral foot. He asked his neighbor who is a nurse and she instructed him that he should come in. He noticed that he had redness about 1.5 weeks ago but did not come in at that time. He states that he was seen by his doctor on Friday and he hadn't said anything about his foot. He was not on any antibiotics recently. The pain is 5/10 currently. He has had two prior amputations, one in November and one in January. The most recent surgery was in January w/ Dr. Osman Coates with [facility].. He has Diabetes II and PAD, he had multiple stents placed in the vessels of his left leg, but his right leg was cleared without stents placed. He has a history of HFpEF w/ ECHO from 2018 in July that showed mild to moderate aortic stenosis. He is on 4-5 L of oxygen at home and saw Ashlie with pulmonology on 12/21 for interstitial PNA, with pleural plaque from asbestos. He takes prednisone for this. He has a 12 pack year history of smoking and quit 45 years prior. He has no sick contacts, has not had a fever, night sweats, nausea, or vomiting. No recent travel, he lives at home and has been isolating. He lives alone but has someone visit him daily. Wali Reyes: [phone] Allergies Allergy/AdvReac Type Severity Reaction Status Date / Time Sulfa (Sulfonamide Allergy Intermediate HIVES Verified 02/03/20 20:13 Antibiotics) atorvastatin AdvReac Mild LEG CRAMPS Verified 02/03/20 20:13 cilostazol AdvReac Mild DIARRHEA Verified 02/03/20 20:13 Home Medications Home Medications Medication Instructions Recorded Confirmed Type potassium gluconate 595 mg PO PM 08/06/19 02/03/20 History hydroxyurea 500 mg capsule 500 mg PO BID 08/07/19 02/03/20 History blood sugar diagnostic #100 ea 10/21/19 02/03/20 Rx aspirin [Aspir-81] 81 mg PO HS 11/01/19 02/03/20 History clopidogrel 75 mg PO PM 11/01/19 02/03/20 History glipizide [Glucotrol XL] 5 mg PO BID 11/01/19 02/03/20 History ibuprofen 200 mg PO Q6H PRN 11/01/19 02/03/20 History lisinopril-hydrochlorothiazide 1 tab PO QAM 11/01/19 02/03/20 History warfarin 7.5 mg PO PM 11/01/19 02/03/20 History metformin 1,000 mg PO BID 11/11/19 02/03/20 History mupirocin 1 appln TOP BID PRN 11/11/19 02/03/20 History furosemide 20 mg tablet 20 mg PO QAM #90 tab 12/22/19 02/03/20 Rx prednisone 1 mg tablet 3 mg PO QPM 12/27/19 02/03/20 History oxycodone 5 mg PO Q6H PRN #10 cap 01/14/20 02/03/20 Rx Past Med/Surg History Medical History (Updated 02/07/20 @ 17:00 by Rosi Trinh MD) Aortic valve stenosis Mild to moderate on 07/2019 echo (but GUY 0.92cm2) follows with Dr. Roddy Ramos Arteriosclerotic cardiovascular disease (ASCVD) Benign hypertension (09/14/12) Cardiac murmur Chronic diastolic CHF (congestive heart failure) Per records Diabetes mellitus, type 2 Sugar fluctuates Essential thrombocytosis History of bladder cancer 2003--sx and "treatments" History of skin cancer Hyperlipidemia (09/14/12) Idiopathic interstitial pneumonia On chronic O2. Currently on steroids. skilled nursing current use of systemic steroids On anticoagulant therapy plavix and warfarin daily On home oxygen therapy 3L N/C at all times Peripheral arterial disease Does have stents and history of angioplasty to bilateral LEs - follows with Dr Ramos; on 10/25/19- pt had angioplasty to RT distal SFA, Pop A, NILAY. 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 Woodall Rheumatoid arthritis SDH (subdural hematoma) October 2019. Admitted [facility] for traumatic SDH 2/2 mechanical fall -- fall also resulted in R prosthetic hip dislocation, s/p reduction. No surgical tx needed for SDH per neurosurgery recommendations Secondary pulmonary hypertension Tremor Bilateral hands- improved Surgical History Amputated toe of left foot History of bilateral cataract extraction History of bladder surgery removal of cancerous tumor History of colonoscopy History of cystoscopy multiple History of Mohs micrographic surgery for skin cancer x2 History of procedure for peripheral vascular disease bilt lower extremities--3 stents in left LE History of right hip replacement (Acute) History of testicular surgery left for hydrocele History of tooth extraction all teeth Family History Family/Other Coronary heart disease Cancer Family/Other Heart disease Cancer Mother Family history of diabetes mellitus Brother Family history of diabetes mellitus Brother Family history of diabetes mellitus Sister Family history of diabetes mellitus Sister Family history of diabetes mellitus Other No family history of adverse response to anesthesia Social History Preferred Language: Divehi Communication Ability: Effective Portfolio Mgr Required: No Beliefs That Will Affect Care: None marital status: / Current Living Situation: Alone current occupational status: retired Other Information That Helps Us Care for You: No Feels Safe at Home: Yes Safety Concerns: Feels Safe At This Time Smoking Status: Former smoker Cigarettes Per Day: 1 PPD smoked for 15 years quit in 1974 ; Do You Dip or Chew Tobacco: No ; Second Hand Exposure: No ; Hx Alcohol Use: No Hx Substance Use: No during the past year weight has: remained stable Review of Systems Review of Systems: GI: denies indigestion, diarrhea, constipation : denies urgency, frequency, dysuria Pulm: denies cough or shortness of breath, sputum production Cardiac: denies chest pain, palpitations, PND, LEE, leg edema Physical Exam Constitutional: WD/WN, vitals as above Eyes: PERRL, conjunctivae normal, anicteric sclerae ENMT: external ear and nose normal, oropharynx normal Neck: normal visual inspection Respiratory: normal respiratory effort, lungs clear to auscultation Gastrointestinal (Abdomen): normal bowel sounds, soft, nontender, no hepatosplenomegaly Skin: - slight swelling over the right foot - distal 5th metatarsal w/ erythematous base and moist purulent 1-2cm lesion w/o tracking - no lesions on the left foot Results & Data Results & Data ([facility]) Vital Signs (Past 12 Hours) Vital Signs Temp Pulse Resp BP Pulse Ox 02/03/20 21:30 64 20 118/52 L 92 02/03/20 21:00 67 13 114/56 L 02/03/20 20:30 61 16 124/57 L 93 02/03/20 20:00 71 19 90 02/03/20 19:30 64 20 131/55 L 95 02/03/20 19:00 65 20 118/59 L 96 02/03/20 18:43 65 15 96 02/03/20 18:38 66 19 114/59 L 97 02/03/20 17:47 36.5 C 86 22 113/66 87 L CBC Results Results Complete Blood Count Results: RBC 3.37 M/uL (4.7-6.1) L 02/07/20 WBC 23.26 K/uL (4.8-10.8) H 02/07/20 Hgb 8.8 g/dL (14.0-18.0) L 02/07/20 Hct 31.0 % (42-52) L 02/07/20 Plt Count 268 K/uL (130-400) 02/07/20 Chemistry (BMP) Results BMP Results: Sodium 140 mmol/L (136-145) 02/07/20 Potassium 3.7 mmol/L (3.5-5.1) 02/07/20 Chloride 109 mmol/L (98-107) H 02/07/20 BUN 33 mg/dl (7-18) H 02/07/20 Creatinine 1.66 mg/dl (0.6-1.4) H 02/07/20 Glucose 112 mg/dl (70-99) H 02/07/20 Code Status & VTE Plan VTE Prophylaxis Plan VTE Prophylaxis will be ordered: Yes Supervising Physician Co-Signing Physician Notes Attending addendum: I have physically seen this patient, have supervised the medical residents activities, and agree with the H&P unless as otherwise noted. Assessment and Plan: Osteomyelitis right fifth MTP and right fifth toe/postop great and second toe partial amputation- Follow blood cultures and wound cultures. PICC line placement Consult orthopedic surgery Vancomycin IV and Zosyn IV Interstitial lung disease/hypoxia- Hold oral prednisone. Placed on Solu-Medrol 40 mg IV every 12 hours for partial stress dosing and treatment of ILD Duonebs every 4 hours while awake and every 2 hours when necessary. PAD/status post stent/status post balloon angioplasty- Continue aspirin/clopidogrel and warfarin. HFpEF/nonsustained V. tach- Continue Lasix. K rider and oral potassium to optimize. Repeat laboratories in a.m. Remaining orders and notations as noted. Resident Activity Tracking Resident Involvement: Resident Care Provided Care Provided: Adult [facility] Medicine
[2020-02-03] MEDS: CLOPIDOGREL BISULFATE 75 MG TAB PO SCH (23:56)
[2020-02-03] MEDS: ASPIRIN 81 MG ECTAB PO SCH (23:56)
[2020-02-03] MEDS: PIPERACILLIN/TAZOBACTAM 3.375 GM in DEXTROSE 5% 100 ML IV SCH (23:56)
[2020-02-03] MEDS: methylPREDNISolone 40 MG in SYRINGE 0 ML IV SCH (23:56)
[2020-02-04] MEDS: INSULIN ASPART 100 UNITS/ML 3 ML PEN SC SCH ×5 (00:01→21:03)
[2020-02-04] MEDS: HYDROXYUREA 500 MG CAP PO SCH ×3 (01:21→21:00)
[2020-02-04] MEDS: WARFARIN SOD 7.5 MG TAB PO SCH ×2 (01:21→21:01)
[2020-02-04] MEDS ORDERED: POTASSIUM CHLORIDE 20 MEQ TABCR PO STA (02:13)
[2020-02-04] MEDS ORDERED: POTASSIUM CHLORIDE / WTR 10 MEQ/100 ML PLCT IV ONE (02:16)
--- NOTE | 2020-02-04 02:24 | Communication Note ---
Date of Service: February 04, 2020 Notified overnight that pt was having non-sustained runs of v tach. Stat EKG ordered. Optimizing electrolytes. Potassium currently 3.7. Goal K>4. Ordered PO KCl 40mEq +1 K-rider. Mag pending with AM labs in 2 hrs, goal >2.0 Resident Activity Tracking Resident Involvement: Supervisor [place] Department Coverage Note Care Provided: Adult Hospital Medicine
[2020-02-04] MEDS ORDERED: INSULIN ASPART 100 UNITS/ML 3 ML PEN SC SCH (04:00)
[2020-02-04] MEDS: PIPERACILLIN/TAZOBACTAM 3.375 GM in DEXTROSE 5% 100 ML IV SCH ×3 (07:29→23:56)
[2020-02-04] MEDS: FUROSEMIDE 20 MG TAB PO SCH (07:30)
[2020-02-04] MEDS: LISINOPRIL/HCTZ 20/25MG 1 TAB PO SCH (07:30)
[2020-02-04] MEDS ORDERED: INSULIN GLARGINE SOLOSTAR 100 UNITS/ML 3 ML PEN SC ONE (09:00)
[2020-02-04] MEDS: methylPREDNISolone 40 MG in SYRINGE 0 ML IV SCH ×2 (10:48→22:45)
[2020-02-04 11:18] LABS: Hematocrit (blood only) 26.3 % (42-52); Hemoglobin 7.2 g/dL (14.0-18.0); Mean Corpuscular Hemoglobin 25.8 pg (25-34); Mean Corpuscular Hgb Conc 27.4 g/dL (32-36); Mean Corpuscular Volume 94.3 fL (80-100); Mean Platelet Volume 11.3 fL (7.4-10.4); Nucleated RBC # (auto) 0.02 K/uL (0-0); Nucleated RBC % (auto) 0.1 %; Platelet Count 316 K/uL (130-400); RDW Coefficient of Variation 19.3 % (11.5-14.5); RDW Standard Deviation 64.4 fL (36.4-46.3); Red Blood Count 2.79 M/uL (4.7-6.1); White Blood Count 22.93 K/uL (4.8-10.8)
--- NOTE | 2020-02-04 11:20 | Pharmacy Report ---
Pharmacy Abx Initial Consult - Date of Service February 04, 2020 - Pharmacy Dosing Scope Date of Consult: 02/03/20 Consultation requested by: Dr. Weston Pharmacy is consulted to initiate Vancomycin IV dosing therapy, order appropriate labs and adjust drug dose/frequency. - Subjective The patient is a 79 year old M admitted on 02/03/20 21:03. - Objective Height: 5 ft 9 in Weight: 65.9 kg Vital Signs (Past 12hrs): Vital Signs Temp Pulse Pulse Resp BP Pulse Ox 02/04/20 08:07 37.3 C 68 18 101/60 90 02/04/20 03:00 36.7 C 68 16 103/61 85 L 02/04/20 01:29 36.8 C 90 83 16 82/49 L 88 L 02/03/20 23:56 36.8 C 83 16 82/49 L 87 L Lab Results (24hrs): Laboratory Tests (24 Hours) 02/03/20 02/03/20 02/03/20 18:18 18:18 18:18 WBC Neut # (Auto) ESR 22 H Creatinine 1.24 Est Cr Clr Drug Dosing 45.3 C-Reactive Protein 0.58 H Procalcitonin 0.13 02/03/20 18:18 WBC 17.54 H Neut # (Auto) 15.01 H ESR Creatinine Est Cr Clr Drug Dosing C-Reactive Protein Procalcitonin Micro Results: 02/03/20 18:05 Gram Stain - Final Foot,Right Wound Culture - Pending 02/03/20 18:11 Aerobic Blood Culture - Pending Blood Anaerobic Blood Culture - Pending 02/03/20 18:18 Aerobic Blood Culture - Pending Blood Anaerobic Blood Culture - Pending - Risk Factors for Resistance * Immunocompromised (chronic steroid therapy) - Assessment & Plan Assessment 79 year old M admitted with R foot osteomyelitis s/p amputation x 2 recently. Given his history of recurrent infection, type 2 diabetes and chronic steroid use, he was started on both Vancomycin and Zosyn to treat current infection. Blood and wound cultures pending. Plan Vancomycin IV * Estimated PK Parameters: Vd 0.7 L/kg, Lázaro 0.38 hr-1, t1/2 18 hr * Loading dose: Vancomycin 1250 mg IV (18.5 mg/kg) was given in ED last evening. * Maintenance dose: Vancomycin 1250 mg IV every 24 hours started today around 18 hrs after first dose. * Goal trough level for Osteo: 15 to 20 mcg/mL * Trough level ordered for 02/05 after total of 3 doses would have been given. Piperacillin/tazobactam * 4.5 g bolus administered over 30 minutes, then 3.375 g IV extended infusion every 8 hours for CrCl greater than 20 mL/min. * Will monitor renal function and adjust dose if needed. Pharmacy will continue to follow and will adjust dose/frequency as necessary. Thank you.
[2020-02-04 11:30] LABS: Anisocytosis Present; Basophils # (auto) 0.03 K/uL (0-0.2); Basophils % (auto) 0.1 %; Eosinophils # (auto) 0.01 K/uL (0-0.5); Immature Granulocytes % (auto) 0.9 %; Lymphocytes # (auto) 1.07 K/uL (1.2-3.4); Lymphocytes % (auto) 4.7 %; Monocytes # (auto) 0.72 K/uL (0.11-0.59); Monocytes % (auto) 3.1 %; Neutrophils % (auto) 91.2 %; Spherocytes Occasional
[2020-02-04 11:34] LABS: BUN Creatinine Ratio 22.6 (10-20); Calcium 7.7 mg/dl (8.5-10.1); Creatinine Clr Calc Pharmacy 36.9 ml/min; Est GFR (African American) 50.6; Est GFR (Non-African American) 43.7; Magnesium 1.9 mg/dl (1.8-2.4); Potassium 4.4 mmol/L (3.5-5.1)
[2020-02-04 11:48] LABS: Estimated Average Glucose 126 mg/dl
--- NOTE | 2020-02-04 11:48 | Pharmacy Report ---
Glycemic Control Consultation - Date of Service February 04, 2020 - Scope Scope: Glycemic Pharmacist consulted for glycemic control and to write orders per [facility] inpatient glycemic control protocol. - Objective Weight: 65.9 kg Accjustinaecks BSG (last 24hrs): 02/03/20 02/03/20 02/03/20 18:18 22:34 23:44 Glucose 105 H POC Glucose 183 H 239 H 02/04/20 02/04/20 02/04/20 04:33 07:51 10:35 Glucose 169 H POC Glucose 194 H 181 H Laboratory Data (last 24hrs): 02/03/20 02/04/20 18:18 10:35 Potassium 3.7 4.4 D Carbon Dioxide 23 22 Anion Gap 7.0 7.0 Creatinine 1.24 1.49 H Est Cr Clr Drug Dosing 45.3 36.9 - Recent Pertinent Medications Outpatient Anti-diabetic Regimen: * Metformin 1000 mg PO BID * Glipizide 5 mg PO BID * A1c = 5.6% on 12/17/19 Risk Factors for Insulin Resistance: * Steroids: Solumedrol 40 mg IV Q12H * Infection: Vancomycin + Zosyn for OM * Diet: T1DM/Heart Healthy - Assessment & Plan Assessment & Plan: ASSESSMENT: * 79 yo admitted secondary to drainage and odor from R foot wound. Recently had toes amputated from foot at beginning of month. PMHx significant for HTN, PAD, HFpEF, DM II, H/O bladder Cancer, SDH. Pharmacy is consulted for glycemic management. * Pt is maintained on oral antidiabetic agents as an outpatient. Oral agents are not recommended for inpatient use d/t drug interactions, changing PO intake, and difficulty titrating for acute hyper/hypoglycemia. ADA recommends re- initiating outpatient oral agents 1-2 days prior to discharge if/when appropriate if they were held on admission. Will hold oral agents for admission and utilize SQ basal bolus insulin regimen which is the recommended regimen for inpatient glycemic control. ADA & AACE recommend a goal blood sugar range 140-180 mg/dl for the majority of critically ill & non-critically ill patients. However, more stringent targets may be selected in individual cases. Will utilize more stringent goal of 110-140mg/dl based on patient age & comorbidities. Additionally, tighter glycemic control is warranted to facilitate wound/infection healing. * BSG prior to bed last evening was 239 mg/dL. Patient received 10 units of Lantus at that time. Fasting BsG this AM was 181 mg/dL. * Patient receive 10 units of Lantus this AM. Expecting steroid-induced hyperglycemia to take effect on post-prandial BSGs throughout today secondary to insufficient basal dose. Will increase basal regimen per scale BID starting tonight. Note if Solumedrol is discontinued, patient's basal needs will drastically decrease. Please contact pharmacy if this occurs. * Will continue novolog parameters per weight and stress of 3 for now. PLAN FOR INPATIENT GLYCEMIC CONTROL: * Holding outpatient oral diabetes medications * Basal insulin - Lantus 10-20 units SQ BID * 10 units for BSG below 140 mg/dL * 15 units for BSG 140-180 mg/dL * 20 units for BSG above 180 mg/dL * Bolus insulin * NovoLog per scale ACHS or Q6hrs while NPO * Goal Range: Low 110 mg/dL - High 140 mg/dL * Correction Factor: 25 mg/dL/unit * Nutritional / Prandial insulin per carb ratio of 1 unit per 8 grams CHO consumed * Please note that the plan above was derived based on current level of insulin resistance and hospital stress. These recommendations are appropriate for inpatient admission only. Plan of care upon discharge will need to be reassessed to avoid potential outpatient hypo/hyperglycemia. Thank you.
--- NOTE | 2020-02-04 12:32 | Hospitalist Progress Note ---
Date of Service February 04, 2020 Assessment & Plan (1) Osteomyelitis of foot: Foot x-ray shows osteomyelitis distal aspect fifth metatarsal as well as base of proximal phalanx fifth toe. - Orthopedics consulted - Awaiting assessment by Dr. Dumont, his surgeon - No prior cultures with any bacteria found - Continue vanc/Zosyn - Follow culture drawn on 02/02 (2) Peripheral arterial disease: Does have stents and history of angioplasty to bilateral LEs - follows with Dr Ramos; on 10/25/19- pt had angioplasty to RT distal SFA, Pop A, NILAY. - Continue ASA, Plavix, and warfarin for now. - INR on 02/02 was 2.0. (3) Diabetes mellitus: A1c is 6.0% this admission. - Hold home oral agents - Sliding scale insulin (4) Idiopathic interstitial pneumonia: At baseline is on 4-5L NC. Has seen Dr. Hardin, Dr. Alatorre, and Shirley Dailey in the office. - Presently at baseline breathing. - Continue prednisone 3 mg PO HS - DuoNebs PRN - Continue home O2 levels (5) Benign hypertension: BP today is 100/60. - Continue lisinopril/HCTZ for now - Hold Lasix for mildly rising Cr (6) Chronic diastolic CHF (congestive heart failure): Per patient. Presently appears euvolemic. - Monitor weight & volume status given we're holding Lasix (7) Rheumatoid arthritis: Long-standing. - Continue steroid at home dose - Continue hydroxyurea (is this for RA?) (8) History of DVT (deep vein thrombosis): On warfarin. - INR was 2.0 on 02/02 Admission and Anticipated Discharge Date Admission Date: February 03, 2020 Subjective No major concerns overnight. Feels his breathing is at baseline. No major pain in the foot. Reports no fevers/chills, chest pain, shortness of breath, abdominal pain, nausea, or vomiting. Physical Exam Constitutional: WD/WN, vitals as above Eyes: EOM intact bilaterally; no conjunctival abnormality ENMT: external ear and nose normal, oropharynx normal Neck: trachea midline, no thyromegaly normal visual inspection Respiratory: normal respiratory effort, lungs clear to auscultation no respiratory distress Cardiovascular: RRR, no murmur, no edema Gastrointestinal (Abdomen): Inspection/Auscultation: abdomen normal to inspection; abdomen not distended Musculoskeletal: Extremities: + extremities abnormal to inspection (Right toes amputated. Sutures in place still.) Skin: no rashes, warm and dry Neurologic: moves all extremities and awake Psychiatric: Orientation: alert, oriented to person and cooperative Results & Data Results & Data ([facility]) Vital Signs (Past 12 Hours) Vital Signs Temp Pulse Pulse Resp BP Pulse Ox 02/04/20 08:07 37.3 C 68 18 101/60 90 02/04/20 03:00 36.7 C 68 16 103/61 85 L 02/04/20 01:29 36.8 C 90 83 16 82/49 L 88 L PG Care Time/CCT Total # of Minutes Spent Total Time Spent with Patient: Total time spent is greater than 50% in coordination of care (as documented) at patient's floor/unit and/or counseling patient: Coding Level of Care Code 53438 Subseq Hosp Care Lvl 3 Diagnoses Osteomyelitis of foot M86.9 Laterality: right Osteomyelitis type: unspecified type Peripheral arterial disease I73.9 Diabetes mellitus E11.9 Idiopathic interstitial pneumonia J84.111 Benign hypertension I10 Chronic diastolic CHF (congestive heart failure) I50.32 Rheumatoid arthritis M06.9 History of DVT (deep vein thrombosis) Z86.718 (1) Osteomyelitis of foot Laterality: right Osteomyelitis type: unspecified type Qualified Code(s): M86.9 - Osteomyelitis, unspecified
[2020-02-04] MEDS ORDERED: VANCOMYCIN TROUGH ONE (13:30)
[2020-02-04] MEDS: VANCOMYCIN HCL 1,250 MG in SODIUM CHLORIDE 0.9% 500 ML IV SCH (14:00)
--- NOTE | 2020-02-04 15:46 | Electrocardiogram Report ---
Test Reason : Blood Pressure : / mmHG Vent. Rate : 066 BPM Atrial Rate : 066 BPM P-R Int : 240 ms QRS Dur : 094 ms QT Int : 416 ms P-R-T Axes : 035 088 -07 degrees QTc Int : 436 ms Sinus rhythm with 1st degree A-V block Otherwise Normal ECG When compared with ECG of 10-JAN-2020 13:33, No significant change was found Confirmed by Cesar Yoo ([id number]) on 02/04/2020 3:46:06 PM Referred By: REFERRED SELF Confirmed By:Cesar Yoo
[2020-02-04] MEDS ORDERED: SODIUM CHLORIDE 0.9% 250 ML IV PRN (17:43)
--- NOTE | 2020-02-04 17:54 | Consultation Report ---
DATE OF CONSULTATION: 02/04/2020 PERTINENT HISTORY: This is an 79-year-old gentleman well known to the orthopedic service who presented with apparently worsening redness and swelling with foul odor over his right foot. He was placed on IV antibiotics and admitted to the hospitalist service. The patient had recent amputations for osteomyelitis with drainage within the last several weeks. He was making good progress. However, he apparently had worsening of symptoms with increased weightbearing. The patient understood that he was doing too much walking; however, continued to weightbear despite recommendations for nonweightbearing. PAST MEDICAL HISTORY: Aortic valve stenosis, arteriosclerotic cardiovascular disease, benign hypertension, cardiac murmur, chronic diastolic CHF, diabetes mellitus type 2, history of bladder cancer, history of skin cancer, hyperlipidemia, idiopathic interstitial pneumonia, chronic O2 usage, chronic steroid usage, chronic anticoagulation therapy, home O2 therapy, peripheral artery disease, peripheral vascular disease, pleural plaque with presence of asbestos, polycythemia vera, rheumatoid arthritis, subdural hematoma, secondary pulmonary hypertension, tremors. PAST SURGICAL HISTORY: Amputated toe of left foot, recent surgery on right foot with amputation and debridement, history of bilateral cataract extraction, bladder surgery, colonoscopy, cystoscopy, Mohs for skin cancer x2, procedure for peripheral vascular disease bilaterally, 3 stents to the left lower extremity, right hip replacement, testicular surgery for hydrocele, history tooth extraction of all teeth. ALLERGIES: SULFA, ATORVASTATIN AND CILOSTAZOL. MEDICATIONS: Please note the extensive list in the medical record. SOCIAL HISTORY: He is an ex-smoker 1 pack a day for 15 years, quit in 1974. Denies drug or alcohol use. He is a , lives alone and is retired. PHYSICAL EXAMINATION: This is an 79-year-old gentleman, alert and oriented x3, lying supine in his hospital room bed. Examination of the right foot demonstrates sutures within the right foot second toe amputation, lateral fifth metatarsal head region. Limited edema. No significant erythema, no tenderness to palpation, dense neuropathy of bilateral lower extremities in a stocking distribution, minimally palpable pulses. Feet are cool; however, appeared to be perfused. LABORATORIES AND RADIOGRAPHS: Reviewed noting osteopenia of the base of proximal phalanx of the right fifth toe and the fifth metatarsal head suggestive of osteomyelitis. IMPRESSION: Right foot cellulitis status post recent amputation and debridement, on IV antibiotics, possible osteomyelitis of fifth metatarsal head, possible osteomyelitis of fifth proximal phalanx, peripheral vascular disease chronic, chronic neuropathy of bilateral lower extremities, diabetes mellitus type 2, poorly controlled. RECOMMENDATION: MRI of the right foot, no contrast due to the patient's chronic kidney disorder. We will follow with you. He may be a candidate for continued IV antibiotics should he show a response and avoid further surgery if possible. We will follow with you. Thank you for the opportunity to consult in the care of this patient.
[2020-02-04] MEDS: ASPIRIN 81 MG ECTAB PO SCH (21:00)
[2020-02-04] MEDS: CLOPIDOGREL BISULFATE 75 MG TAB PO SCH (21:01)
[2020-02-04] MEDS: INSULIN GLARGINE SOLOSTAR 100 UNITS/ML 3 ML PEN SC SCH (21:02)
[2020-02-05] MEDS: INSULIN ASPART 100 UNITS/ML 3 ML PEN SC SCH ×6 (00:06→21:26)
[2020-02-05 08:09] LABS: INR 2.2 (0.9-1.1); Prothrombin Time 21.9 Seconds (9.0-12.0)
[2020-02-05 08:14] LABS: Hematocrit (blood only) 28.2 % (42-52); Hemoglobin 8.1 g/dL (14.0-18.0); Mean Corpuscular Hemoglobin 26.6 pg (25-34); Mean Corpuscular Hgb Conc 28.7 g/dL (32-36); Mean Corpuscular Volume 92.8 fL (80-100); Mean Platelet Volume 10.8 fL (7.4-10.4); Platelet Count 244 K/uL (130-400); RDW Coefficient of Variation 18.1 % (11.5-14.5); Red Blood Count 3.04 M/uL (4.7-6.1); White Blood Count 20.72 K/uL (4.8-10.8)
[2020-02-05 08:35] LABS: BUN Creatinine Ratio 27.1 (10-20); Calcium 7.8 mg/dl (8.5-10.1); Creatinine Clr Calc Pharmacy 41.7 ml/min; Est GFR (African American) 57.1; Est GFR (Non-African American) 49.2; Magnesium 2.1 mg/dl (1.8-2.4); Phosphorus 3.8 mg/dl (2.5-4.9); Potassium 4.2 mmol/L (3.5-5.1)
--- NOTE | 2020-02-05 09:22 | Pharmacy Report ---
Pharmacy Glycemic Short Note 2 - Date of Service February 05, 2020 - Glycemic Short BSG Results (Last 24 hours): 02/04/20 02/04/20 02/04/20 10:35 11:53 17:14 Glucose 169 H POC Glucose 165 H 161 H 02/04/20 02/04/20 02/05/20 20:57 23:56 03:57 Glucose POC Glucose 224 H 109 H 106 H 02/05/20 02/05/20 07:22 07:31 Glucose 87 POC Glucose 108 H OUTPATIENT ANTIDIABETIC REGIMEN: * Glipizide 5 mg PO BIDM * Metformin 1,000mg PO BIDM * A1c = 6% on 02/04/20 ASSESSMENT: * 79yo T2DM male with excellent outpatient control per recent A1c. May need to assess for outpatient hypoglycemia since A1c < 7% * Pt is maintained on oral antidiabetic agents as an outpatient * Oral agents are not recommended for inpatient use d/t drug interactions, changing PO intake, and difficulty titrating for acute hyper/hypoglycemia. ADA recommends re-initiating outpatient oral agents 1-2 days prior to discharge if/when appropriate if they were held on admission. * Oral agents held on admission (02/02) and pt initiated on SQ basal bolus insulin regimen which is the recommended regimen for inpatient glycemic control. * Pt initiated on stressed weight based insulin dosing for insulin carline patient & steroid induced hyperglycemia * Pt has been receiving 58 units of insulin per day with near adequate control * AM fasting BSG slightly below goal range for inpatient targets at 108 mg/dl --> will decrease basal insulin dosing * Steroids remain at Solumedrol 40mg IV Q12hrs --> will not change CF/CR as steroids have their most profound effect on post-prandial BSGs PLAN FOR INPATIENT GLYCEMIC CONTROL: * Hold outpatient oral diabetes medications * Basal insulin: decrease * Lantus 10-15 units SQ BID * BSG < 180 --> 10 units * BSG 180 or above --> 15 units * Bolus insulin: no change * NovoLog per scale ACHS or Q6hrs while NPO * Goal Range: Low 110 mg/dL - High 140 mg/dL * Correction Factor: 25 mg/dL/unit * Nutritional / Prandial insulin per carb ratio of 1 unit per 8 grams CHO consumed PLAN FOR DISCHARGE: * A1c is in goal range for age/co-morbidities. No changes needed to outpatient regimen unless patient is experiencing hypoglycemia * Will re-evaluate DC recs if patient is going to be dc on significant steroid taper.
[2020-02-05] MEDS: LISINOPRIL/HCTZ 20/25MG 1 TAB PO SCH (09:42)
[2020-02-05] MEDS: HYDROXYUREA 500 MG CAP PO SCH ×2 (09:42→21:25)
[2020-02-05] MEDS: FUROSEMIDE 20 MG TAB PO SCH (09:42)
[2020-02-05] MEDS: INSULIN GLARGINE SOLOSTAR 100 UNITS/ML 3 ML PEN SC SCH (09:43)
[2020-02-05] MEDS: PIPERACILLIN/TAZOBACTAM 3.375 GM in DEXTROSE 5% 100 ML IV SCH ×2 (09:43→17:17)
[2020-02-05] MEDS: methylPREDNISolone 40 MG in SYRINGE 0 ML IV SCH (13:45)
--- NOTE | 2020-02-05 13:53 | Magnetic Resonance Report ---
Study: MRI right foot HISTORY: Osteomyelitis FINDINGS: Findings consistent with bone marrow replacement involving the distal aspect of the residua l proximal phalanx of the great toe. There has been operative resection of the phalanges of the secon d toe. There is bone marrow replacement distal aspect fifth metatarsal as well as the proximal phalanx of th e fifth toe. There is considerable cellulitis and surrounding granulation tissue throughout the foot. No evidence for drainable abscess or collection. IMPRESSION: 1. Osteomyelitis distal aspect fifth metatarsal as well as proximal phalanx fifth toe. 2. Osteomyelitis involving the residual proximal phalanx of the great toe. 3. Findings consistent with operative resection of the phalanges of the second toe. 4. Generalized cellulitis and granulation tissue through throughout the foot. 5. No evidence for a drainable abscess or collection. Electronically signed by: Shun Batista M.D. 02/05/2020 1:52 PM
[2020-02-05] MEDS: VANCOMYCIN HCL 1,250 MG in SODIUM CHLORIDE 0.9% 500 ML IV SCH (13:58)
--- NOTE | 2020-02-05 16:02 | Hospitalist Progress Note ---
Date of Service February 05, 2020 Assessment & Plan (1) Osteomyelitis of foot: Foot x-ray shows osteomyelitis distal aspect fifth metatarsal as well as base of proximal phalanx fifth toe. MRI shows osteomyelitis in the 5th toe as well as at the prior surgery site. - Orthopedics consulted - Awaiting assessment by Dr. Dumont, his surgeon - No prior cultures with any bacteria found - Continue Zosyn; switch vanc to daptomycin to avoid nephrotoxicity - Wound culture growing MRSA, susc. to vanc & daptomycin. (2) Peripheral arterial disease: Does have stents and history of angioplasty to bilateral LEs - follows with Dr Ramos; on 10/25/19- pt had angioplasty to RT distal SFA, Pop A, NILAY. - Continue ASA, Plavix, and warfarin for now. - INR on 02/04 was 2.2. (3) Diabetes mellitus: A1c is 6.0% this admission. - Hold home oral agents - Sliding scale insulin -> Better in the last 24 hours. Mostly ~100. (4) CKD (chronic kidney disease) stage 3, GFR 30-59 ml/min: Baseline Cr ~1.3, eGFR ~60. - On admission, Cr up to 1.5. - Now at 1.35. - Monitor (5) Idiopathic interstitial pneumonia: At baseline is on 4-5L NC. Has seen Dr. Hardin, Dr. Alatorre, and Shirley Dailey in the office. - Presently at baseline breathing. - Continue prednisone 3 mg PO HS - DuoNebs PRN - Continue home O2 levels (6) Benign hypertension: BP today is 130/60. - Continue lisinopril/HCTZ & Lasix for now (7) Chronic diastolic CHF (congestive heart failure): Per patient. Presently appears euvolemic. - Monitor weight & volume status -> Weight was 67.5 kg today; baseline ~66 - 68 kg. (8) Rheumatoid arthritis: Long-standing. - Continue steroid at home dose - Continue hydroxyurea (is this for RA?) (9) History of DVT (deep vein thrombosis): On warfarin. - INR was 2.2 on 02/04 Admission and Anticipated Discharge Date Admission Date: February 03, 2020 Subjective No change in foot redness or pain. Reports no fevers/chills, chest pain, shortness of breath, abdominal pain, nausea, or vomiting. Physical Exam Constitutional: WD/WN, vitals as above Eyes: EOM intact bilaterally; no conjunctival abnormality ENMT: external ear and nose normal, oropharynx normal Neck: trachea midline, no thyromegaly normal visual inspection Respiratory: normal respiratory effort, lungs clear to auscultation no respiratory distress Cardiovascular: RRR, no murmur, no edema Gastrointestinal (Abdomen): Inspection/Auscultation: abdomen normal to inspection; abdomen not distended Musculoskeletal: Extremities: + extremities abnormal to inspection (Right toes amputated. Sutures in place still.) Skin: + ulcer (Right lateral foot) Neurologic: moves all extremities and awake Psychiatric: Orientation: alert, oriented to person and cooperative Results & Data Results & Data ([facility]) Vital Signs (Past 12 Hours) Vital Signs Temp Pulse Pulse Resp BP BP Pulse Ox 02/05/20 11:48 36.4 C L 60 18 126/66 90 02/05/20 08:00 61 02/05/20 07:39 36.8 C 62 16 156/62 H 97 PG Care Time/CCT Total # of Minutes Spent Total Time Spent with Patient: Total time spent is greater than 50% in coordination of care (as documented) at patient's floor/unit and/or counseling patient: Coding Level of Care Code 36436 Subseq Hosp Care Lvl 3 Diagnoses Osteomyelitis of foot M86.9 Laterality: right Osteomyelitis type: unspecified type Peripheral arterial disease I73.9 Diabetes mellitus E11.9 CKD (chronic kidney disease) stage 3, GFR 30-59 ml/min N18.3 Idiopathic interstitial pneumonia J84.111 Benign hypertension I10 Chronic diastolic CHF (congestive heart failure) I50.32 Rheumatoid arthritis M06.9 History of DVT (deep vein thrombosis) Z86.718 (1) Osteomyelitis of foot Laterality: right Osteomyelitis type: unspecified type Qualified Code(s): M86.9 - Osteomyelitis, unspecified
[2020-02-05] MEDS ORDERED: DAPTOMYCIN CONSULT ACTIVE PRN (16:03)
[2020-02-05] MEDS: WARFARIN SOD 7.5 MG TAB PO SCH (21:25)
[2020-02-05] MEDS: ASPIRIN 81 MG ECTAB PO SCH (21:25)
[2020-02-05] MEDS: CLOPIDOGREL BISULFATE 75 MG TAB PO SCH (21:25)
[2020-02-05] MEDS: predniSONE 1 MG TAB PO SCH (21:26)
[2020-02-05] MEDS: DAPTOmycin 400 MG in SYRINGE 0 ML IV SCH (21:26)
[2020-02-06] MEDS: PIPERACILLIN/TAZOBACTAM 3.375 GM in DEXTROSE 5% 100 ML IV SCH ×3 (00:12→16:08)
[2020-02-06] MEDS: INSULIN ASPART 100 UNITS/ML 3 ML PEN SC SCH ×6 (00:20→20:31)
[2020-02-06 07:53] LABS: Prothrombin Time 29.9 Seconds (9.0-12.0)
[2020-02-06 08:22] LABS: BUN Creatinine Ratio 24.7 (10-20); Calcium 8.2 mg/dl (8.5-10.1); Creatinine Clr Calc Pharmacy 39.3 ml/min; Est GFR (African American) 50.6; Est GFR (Non-African American) 43.7; Phosphorus 3.7 mg/dl (2.5-4.9); Potassium 3.8 mmol/L (3.5-5.1)
[2020-02-06 08:33] LABS: Hematocrit (blood only) 30.1 % (42-52); Hemoglobin 8.6 g/dL (14.0-18.0); Mean Corpuscular Hemoglobin 26.4 pg (25-34); Mean Corpuscular Hgb Conc 28.6 g/dL (32-36); Mean Corpuscular Volume 92.3 fL (80-100); Mean Platelet Volume 10.5 fL (7.4-10.4); Platelet Count 239 K/uL (130-400); RDW Coefficient of Variation 18.3 % (11.5-14.5); RDW Standard Deviation 61.2 fL (36.4-46.3); Red Blood Count 3.26 M/uL (4.7-6.1); White Blood Count 22.39 K/uL (4.8-10.8)
[2020-02-06] MEDS: LISINOPRIL/HCTZ 20/25MG 1 TAB PO SCH (08:38)
[2020-02-06] MEDS: FUROSEMIDE 20 MG TAB PO SCH (08:38)
[2020-02-06] MEDS: HYDROXYUREA 500 MG CAP PO SCH ×2 (08:38→20:24)
--- NOTE | 2020-02-06 09:22 | Orthopedic Progress Note ---
Date of Service February 06, 2020 Assessment & Plan (1) Osteomyelitis of foot: Right foot cellulitis status post recent amputation and debridement, on IV antibiotics, possible osteomyelitis of fifth metatarsal head, possible osteomyelitis of fifth proximal phalanx, peripheral vascular disease chronic, chronic neuropathy of bilateral lower extremities, diabetes mellitus type 2, poorly controlled. No appreciable fluid collection or abscess on MRI, will continue with conservative treatment at this time IV antibiotics wound care. If failed conservative treatments will likely require further surgical debridement/amputation. Admission and Anticipated Discharge Date Admission Date: February 03, 2020 Subjective Patient seen laying in bed today, comfortable, no acute issues overnight, symptoms improving, Review of Systems Review of Systems: All systems reviewed & are unremarkable except as noted in HPI & below Constitutional: as per Subjective / HPI Physical Exam Physical Exam: Examination of the right foot demonstrates sutures within the right foot second toe amputation, lateral fifth metatarsal head region. Limited edema. No significant erythema, no tenderness to palpation, dense neuropathy of bilateral lower extremities in a stocking distribution, minimally palpable pulses. Feet are cool; however, appeared to be perfused.No purulence or drainage. Results & Data ([facility]) Vital Signs (Past 12 Hours) Vital Signs Temp Pulse Pulse Resp BP BP Pulse Ox 02/06/20 03:11 36.5 C 59 L 20 141/63 H 92 02/05/20 23:40 65 02/05/20 22:30 36.6 C 81 20 116/74 96 Diagnostic Findings Study: MRI right foot HISTORY: Osteomyelitis FINDINGS: Findings consistent with bone marrow replacement involving the distal aspect of the residual proximal phalanx of the great toe. There has been operative resection of the phalanges of the second toe. There is bone marrow replacement distal aspect fifth metatarsal as well as the proximal phalanx of the fifth toe. There is considerable cellulitis and surrounding granulation tissue throughout the foot. No evidence for drainable abscess or collection. IMPRESSION: 1. Osteomyelitis distal aspect fifth metatarsal as well as proximal phalanx fifth toe. 2. Osteomyelitis involving the residual proximal phalanx of the great toe. 3. Findings consistent with operative resection of the phalanges of the second toe. 4. Generalized cellulitis and granulation tissue through throughout the foot. 5. No evidence for a drainable abscess or collection. (1) Osteomyelitis of foot Laterality: right Osteomyelitis type: unspecified type Qualified Code(s): M86.9 - Osteomyelitis, unspecified
--- NOTE | 2020-02-06 10:25 | Pharmacy Report ---
Pharmacy Glycemic Short Note 2 - Date of Service February 06, 2020 - Glycemic Short BSG Results (Last 24 hours): 02/05/20 02/05/20 02/05/20 13:49 16:53 20:28 Glucose POC Glucose 105 H 127 H 226 H 02/06/20 02/06/20 02/06/20 00:09 04:01 07:16 Glucose 96 POC Glucose 148 H 123 H 02/06/20 07:42 Glucose POC Glucose 105 H OUTPATIENT ANTIDIABETIC REGIMEN: * Glipizide 5 mg PO BIDM * Metformin 1,000mg PO BIDM * A1c = 6% on 02/04/20 ASSESSMENT: * 79yo T2DM male with excellent outpatient control per recent A1c. May need to assess for outpatient hypoglycemia since A1c < 7% * Pt is maintained on oral antidiabetic agents as an outpatient * Oral agents are not recommended for inpatient use d/t drug interactions, changing PO intake, and difficulty titrating for acute hyper/hypoglycemia. ADA recommends re-initiating outpatient oral agents 1-2 days prior to discharge if/when appropriate if they were held on admission. * Oral agents held on admission (02/02) and pt initiated on SQ basal bolus insulin regimen which is the recommended regimen for inpatient glycemic control. * Steroids tapered from Solumedrol 40mg IV Q12hrs to prednisone 3 mg PO HS. Insulin regimen will need significantly reduced to prevent hypoglycemia. * DC Lantus * Will continue weight based CF/CR for now - will taper if post-prandial BSGs trend downwards. PLAN FOR INPATIENT GLYCEMIC CONTROL: * Hold outpatient oral diabetes medications * Basal insulin: discontinue * Bolus insulin: no change * NovoLog per scale ACHS or Q6hrs while NPO * Goal Range: Low 110 mg/dL - High 140 mg/dL * Correction Factor: 25 mg/dL/unit * Nutritional / Prandial insulin per carb ratio of 1 unit per 8 grams CHO consumed PLAN FOR DISCHARGE: * A1c is in goal range for age/co-morbidities. No changes needed to outpatient regimen unless patient is experiencing hypoglycemia
[2020-02-06] MEDS ORDERED: VANCOMYCIN TROUGH ONE (13:30)
--- NOTE | 2020-02-06 16:08 | Hospitalist Progress Note ---
Date of Service February 06, 2020 Assessment & Plan (1) Osteomyelitis of foot: Foot x-ray shows osteomyelitis distal aspect fifth metatarsal as well as base of proximal phalanx fifth toe. MRI shows osteomyelitis in the 5th toe as well as at the prior surgery site. - Orthopedics consulted - Awaiting assessment by Dr. Dumont, his surgeon - No prior cultures with any bacteria found - Continue Zosyn; switched vanc to daptomycin on 02/04 to avoid nephrotoxicity - Wound culture from 02/02 growing MRSA, susc. to vanc & daptomycin. (2) Peripheral arterial disease: Does have stents and history of angioplasty to bilateral LEs - follows with Dr Ramos; on 10/25/19- pt had angioplasty to RT distal SFA, Pop A, NILAY. - Continue ASA, Plavix, and warfarin for now. - INR on 02/05 was 3.0. (3) Diabetes mellitus: A1c is 6.0% this admission. - Hold home oral agents - Sliding scale insulin -> Better in the last 24 hours. Mostly ~100 today. (4) CKD (chronic kidney disease) stage 3, GFR 30-59 ml/min: Baseline Cr ~1.3, eGFR ~60. - On admission, Cr of 1.5. - Down at first, now back at 1.5. Will stop his Lasix for tomorrow and monitor. - Monitor (5) Idiopathic interstitial pneumonia: At baseline is on 4-5L NC. Has seen Dr. Hardin, Dr. Alatorre, and Shirley Dailey in the office. - Presently at baseline breathing. - Continue prednisone 3 mg PO HS - DuoNebs PRN - Continue home O2 levels (6) Benign hypertension: BP today is 100/60. - Continue lisinopril/HCTZ for now - Hold Lasix for mild Cr increase. (7) Chronic diastolic CHF (congestive heart failure): Per patient. Presently appears euvolemic. - Monitor weight & volume status -> Weight was 70.2 kg today; up slightly with baseline appearing to be ~68 kg. However, he looks euvolemic to mildly hypovolemic on exam. - Hold Lasix as above; could give dose later in morning tomorrow if he appears to be hypervolemic. (8) Rheumatoid arthritis: Long-standing. - Continue steroid at home dose - Continue hydroxyurea (is this for RA?) (9) History of DVT (deep vein thrombosis): On warfarin. - INR was 3.0 on 02/04 Admission and Anticipated Discharge Date Admission Date: February 03, 2020 Subjective No concerns. Still hoping that he can avoid surgery. Foot feels a lot better than when he came in to the hospital. Reports no fevers/chills, chest pain, shortness of breath, abdominal pain, nausea, or vomiting. Physical Exam Constitutional: WD/WN, vitals as above Eyes: EOM intact bilaterally; no conjunctival abnormality ENMT: external ear and nose normal, oropharynx normal Neck: trachea midline, no thyromegaly normal visual inspection Respiratory: normal respiratory effort, lungs clear to auscultation no respiratory distress Cardiovascular: RRR, no murmur, no edema Gastrointestinal (Abdomen): Inspection/Auscultation: abdomen normal to inspection; abdomen not distended Musculoskeletal: Extremities: + extremities abnormal to inspection (Right toes amputated. Sutures in place still.) Skin: no rashes, warm and dry + ulcer (Right lateral foot) Neurologic: moves all extremities and awake Psychiatric: Orientation: alert, oriented to person and cooperative Results & Data Results & Data ([facility]) Vital Signs (Past 12 Hours) Vital Signs Temp Pulse Pulse Resp BP Pulse Ox 02/06/20 15:16 36.8 C 63 16 101/58 L 93 02/06/20 15:05 77 02/06/20 11:49 36.4 C L 55 L 16 108/58 L 94 02/06/20 08:45 54 L PG Care Time/CCT Total # of Minutes Spent Total Time Spent with Patient: Total time spent is greater than 50% in coordination of care (as documented) at patient's floor/unit and/or counseling patient: Coding Level of Care Code 38756 Subseq Hosp Care Lvl 3 Diagnoses Osteomyelitis of foot M86.9 Laterality: right Osteomyelitis type: unspecified type Peripheral arterial disease I73.9 Diabetes mellitus E11.9 CKD (chronic kidney disease) stage 3, GFR 30-59 ml/min N18.3 Idiopathic interstitial pneumonia J84.111 Benign hypertension I10 Chronic diastolic CHF (congestive heart failure) I50.32 Rheumatoid arthritis M06.9 History of DVT (deep vein thrombosis) Z86.718 (1) Osteomyelitis of foot Laterality: right Osteomyelitis type: unspecified type Qualified Code(s): M86.9 - Osteomyelitis, unspecified
[2020-02-06] MEDS: DAPTOmycin 400 MG in SYRINGE 0 ML IV SCH (20:17)
[2020-02-06] MEDS: WARFARIN SOD 7.5 MG TAB PO SCH (20:24)
[2020-02-06] MEDS: CLOPIDOGREL BISULFATE 75 MG TAB PO SCH (20:24)
[2020-02-06] MEDS: predniSONE 1 MG TAB PO SCH (20:25)
[2020-02-06] MEDS: ASPIRIN 81 MG ECTAB PO SCH (20:25)
[2020-02-07] MEDS: PIPERACILLIN/TAZOBACTAM 3.375 GM in DEXTROSE 5% 100 ML IV SCH ×3 (00:15→16:23)
[2020-02-07 06:23] LABS: INR 3.2 (0.9-1.1); Prothrombin Time 31.8 Seconds (9.0-12.0)
[2020-02-07 06:25] LABS: Hemoglobin 8.8 g/dL (14.0-18.0); Mean Corpuscular Hemoglobin 26.1 pg (25-34); Mean Corpuscular Hgb Conc 28.4 g/dL (32-36); Mean Platelet Volume 11.3 fL (7.4-10.4); Platelet Count 268 K/uL (130-400); RDW Coefficient of Variation 18.4 % (11.5-14.5); RDW Standard Deviation 61.5 fL (36.4-46.3); Red Blood Count 3.37 M/uL (4.7-6.1); White Blood Count 23.26 K/uL (4.8-10.8)
[2020-02-07 06:56] LABS: Potassium 3.7 mmol/L (3.5-5.1)
[2020-02-07 06:57] LABS: Calcium 7.9 mg/dl (8.5-10.1); Creatinine Clr Calc Pharmacy 35.5 ml/min; Est GFR (African American) 44.4; Est GFR (Non-African American) 38.3
[2020-02-07] MEDS: LISINOPRIL/HCTZ 20/25MG 1 TAB PO SCH (08:11)
[2020-02-07] MEDS: HYDROXYUREA 500 MG CAP PO SCH ×2 (08:11→20:15)
[2020-02-07] MEDS: INSULIN ASPART 100 UNITS/ML 3 ML PEN SC SCH ×4 (08:11→20:48)
--- NOTE | 2020-02-07 16:50 | Hospitalist Progress Note ---
Date of Service February 07, 2020 Assessment & Plan (1) Osteomyelitis of foot: Foot x-ray shows osteomyelitis distal aspect fifth metatarsal as well as base of proximal phalanx fifth toe. MRI shows osteomyelitis in the 5th toe as well as at the prior surgery site. - Orthopedics consulted -hoping for conservative management only with IV abx, awaiting today's assessment - Wound cx with MRSA sensitive to Dapto and Vanco -BCxs NGTD - can discontinue Zosyn; switched vanc to daptomycin on 02/04 to avoid nephrotoxicity -if no surgery planned, would recommend 6 weeks of IV abx for OM of the foot--> with IV Dapto. Pt desires home IV abx if possible (2) Peripheral arterial disease: Does have stents and history of angioplasty to bilateral LEs - follows with Dr Ramos; on 10/25/19- pt had angioplasty to RT distal SFA, Pop A, NILAY. - Continue ASA, Plavix, and warfarin for now. (3) Diabetes mellitus: A1c is 6.0% this admission. - Hold home oral agents - Sliding scale insulin Pharmacy managing (4) CKD (chronic kidney disease) stage 3, GFR 30-59 ml/min: Baseline Cr ~1.3, eGFR ~60. - On admission, Cr of 1.5. - Down at first, now back at 1.6. -continue to hold lasix and now will hold HCTZ/lisinopril -follow BMP -Avoid nephrotoxins -renally dose meds when appropriate (5) Idiopathic interstitial pneumonia: At baseline is on 4-5L NC. Has seen Dr. Hardin, Dr. Alatorre, and Shirley Dailey in the office. - Presently at baseline breathing. - Continue prednisone 3 mg PO HS - DuoNebs PRN - Continue home O2 levels (6) Benign hypertension: BPs t - hold lisinopril/HCTZ for now as above - Hold Lasix for mild Cr increase. (7) Chronic diastolic CHF (congestive heart failure): Presently appears euvolemic. - Monitor weight & volume status - looks euvolemic to mildly hypovolemic on exam. - Hold Lasix and HCTZ as above (8) Rheumatoid arthritis: Long-standing. - Continue steroid at home dose (9) History of DVT (deep vein thrombosis): On warfarin. 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 No further pain in foot. No N/V/D, no abd pain/ No CP or SOB. Anxious for discharge Tele with NSR, 1st deg AVB, blocked PACs Review of Systems Review of Systems: All systems reviewed & are unremarkable except as noted in HPI & below Physical Exam Constitutional: WD/WN, vitals as above Eyes: + anicteric sclerae Neck: trachea midline, no thyromegaly Respiratory: normal respiratory effort, lungs clear to auscultation Cardiovascular: Rate/Rhythm: regular rate and regular rhythm Heart Sounds: + murmur (3/6 CATHLEEN at RUSB) Chest (Breasts): Chest: normal inspection of chest Gastrointestinal (Abdomen): normal bowel sounds, soft, nontender, no hepatosplenomegaly Musculoskeletal: Extremities: + extremities abnormal to inspection (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7-6.1) M/uL Hgb (14.0-18.0) g/dL Hct (42-52) % MCV (80-100) fL MCH (25-34) pg MCHC (32-36) g/dL RDW Std Deviation (36.4-46.3) fL RDW Coeff of Dru (11.5-14.5) % Plt Count (130-400) K/uL MPV (7.4-10.4) fL PT (9.0-12.0) Seconds INR (0.9-1.1) Sodium (136-145) mmol/L Potassium (3.5-5.1) mmol/L Chloride (98-107) mmol/L Carbon Dioxide (21-32) mmol/L Anion Gap (3-11) BUN (7-18) mg/dl Creatinine (0.6-1.4) mg/dl Est Cr Clr Drug Dosing ml/min Est GFR ( Amer) Est GFR (Non-Af Amer) BUN/Creatinine Ratio (10-20) Glucose (70-99) mg/dl POC Glucose 120 H 166 H 129 H (70-99) mg/dl Calcium (8.5-10.1) mg/dl Magnesium (1.8-2.4) mg/dl 02/07/20 02/07/20 02/07/20 Range/Units 05:43 05:43 05:43 WBC 23.26 H (4.8-10.8) K/uL RBC 3.37 L (4.7-6.1) M/uL Hgb 8.8 L (14.0-18.0) g/dL Hct 31.0 L (42-52) % MCV 92.0 (80-100) fL MCH 26.1 (25-34) pg MCHC 28.4 L (32-36) g/dL RDW Std Deviation 61.5 H (36.4-46.3) fL RDW Coeff of Dru 18.4 H (11.5-14.5) % Plt Count 268 (130-400) K/uL MPV 11.3 H (7.4-10.4) fL PT 31.8 H (9.0-12.0) Seconds INR 3.2 H (0.9-1.1) Sodium 140 (136-145) mmol/L Potassium 3.7 (3.5-5.1) mmol/L Chloride 109 H (98-107) mmol/L Carbon Dioxide 23 (21-32) mmol/L Anion Gap 8.0 (3-11) BUN 33 H (7-18) mg/dl Creatinine 1.66 H (0.6-1.4) mg/dl Est Cr Clr Drug Dosing 35.5 ml/min Est GFR ( Amer) 44.4 Est GFR (Non-Af Amer) 38.3 BUN/Creatinine Ratio 20.0 (10-20) Glucose 112 H (70-99) mg/dl POC Glucose (70-99) mg/dl Calcium 7.9 L (8.5-10.1) mg/dl Magnesium 2.0 (1.8-2.4) mg/dl 02/06/20 02/06/20 Range/Units 20:30 16:47 WBC (4.8-10.8) K/uL RBC (4.7-6.1) M/uL Hgb (14.0-18.0) g/dL Hct (42-52) % MCV (80-100) fL MCH (25-34) pg MCHC (32-36) g/dL RDW Std Deviation (36.4-46.3) fL RDW Coeff of Dru (11.5-14.5) % Plt Count (130-400) K/uL MPV (7.4-10.4) fL PT (9.0-12.0) Seconds INR (0.9-1.1) Sodium (136-145) mmol/L Potassium (3.5-5.1) mmol/L Chloride (98-107) mmol/L Carbon Dioxide (21-32) mmol/L Anion Gap (3-11) BUN (7-18) mg/dl Creatinine (0.6-1.4) mg/dl Est Cr Clr Drug Dosing ml/min Est GFR ( Amer) Est GFR (Non-Af Amer) BUN/Creatinine Ratio (10-20) Glucose (70-99) mg/dl POC Glucose 121 H 119 H (70-99) mg/dl Calcium (8.5-10.1) mg/dl Magnesium (1.8-2.4) mg/dl PG Care Time/CCT Total # of Minutes Spent Total Time Spent with Patient: Total time spent is greater than 50% in coordination of care (as documented) at patient's floor/unit and/or counseling patient: Coding Level of Care Code 05651 Subseq Hosp Care Lvl 3 Diagnoses Osteomyelitis of foot M86.9 Laterality: right Osteomyelitis type: unspecified type Peripheral arterial disease I73.9 Diabetes mellitus E11.9 CKD (chronic kidney disease) stage 3, GFR 30-59 ml/min N18.3 Idiopathic interstitial pneumonia J84.111 Benign hypertension I10 Chronic diastolic CHF (congestive heart failure) I50.32 Rheumatoid arthritis M06.9 History of DVT (deep vein thrombosis) Z86.718 Essential thrombocytosis D47.3 DVT prophylaxis Z29.9 (1) Osteomyelitis of foot Laterality: right Osteomyelitis type: unspecified type Qualified Code(s): M86.9 - Osteomyelitis, unspecified
[2020-02-07] MEDS: predniSONE 1 MG TAB PO SCH (20:15)
[2020-02-07] MEDS: DAPTOmycin 400 MG in SYRINGE 0 ML IV SCH (20:16)
[2020-02-07] MEDS: ASPIRIN 81 MG ECTAB PO SCH (20:16)
[2020-02-07] MEDS: CLOPIDOGREL BISULFATE 75 MG TAB PO SCH (20:16)
--- NOTE | 2020-02-07 23:08 | Billing Data ---
Date of Service February 07, 2020 Coding Level of Care Code 20887 Initial Inpt Care Lvl 3
[2020-02-08 06:51] LABS: Basophils # (auto) 0.05 K/uL (0-0.2); Basophils % (auto) 0.3 %; Hematocrit (blood only) 29.7 % (42-52); Hemoglobin 8.6 g/dL (14.0-18.0); Immature Granulocytes % (auto) 0.5 %; Lymphocytes # (auto) 1.39 K/uL (1.2-3.4); Lymphocytes % (auto) 7.1 %; Mean Corpuscular Hemoglobin 26.1 pg (25-34); Mean Platelet Volume 10.7 fL (7.4-10.4); Monocytes # (auto) 0.55 K/uL (0.11-0.59); Monocytes % (auto) 2.8 %; Neutrophils # (auto) 17.41 K/uL (1.4-6.5); Neutrophils % (auto) 88.3 %; Platelet Count 236 K/uL (130-400); RDW Coefficient of Variation 18.3 % (11.5-14.5); RDW Standard Deviation 59.9 fL (36.4-46.3)
[2020-02-08 07:27] LABS: BUN Creatinine Ratio 24.6 (10-20); Calcium 7.8 mg/dl (8.5-10.1); Est GFR (African American) 57.6; Est GFR (Non-African American) 49.7; Magnesium 2.1 mg/dl (1.8-2.4); Potassium 3.2 mmol/L (3.5-5.1)
[2020-02-08 08:39] LABS: Ferritin 25.7 ng/ml (8-388)
[2020-02-08] MEDS: HYDROXYUREA 500 MG CAP PO SCH ×2 (08:56→22:26)
[2020-02-08] MEDS: INSULIN ASPART 100 UNITS/ML 3 ML PEN SC SCH ×4 (08:58→22:27)
[2020-02-08 10:35] LABS: Folate (Folic Acid) 13.21 ng/ml (>5.38)
[2020-02-08 11:24] LABS: INR 2.8 (0.9-1.1); Prothrombin Time 27.5 Seconds (9.0-12.0)
[2020-02-08] MEDS: FERROUS SULFATE 325 MG TAB PO SCH ×2 (12:48→18:46)
--- NOTE | 2020-02-08 18:04 | Hospitalist Progress Note ---
Date of Service February 08, 2020 Assessment & Plan (1) Osteomyelitis of foot: Foot x-ray shows osteomyelitis distal aspect fifth metatarsal as well as base of proximal phalanx fifth toe. MRI shows osteomyelitis in the 5th toe as well as at the prior surgery site. - Orthopedics consulted -plan to opt for conservative management only with IV abx, follow closely as an outpatient with possible surgical debridement if not improving - Wound cx with MRSA sensitive to Dapto and Vanco -BCxs remain NGTD -Leukocytosis persists but is improved; he seems to always have a high leukocytosis but is neutrophil predominant likely related to multiple recurrent infections -Have since discontinued the Zosyn and switched vanc to daptomycin on 02/04 to avoid nephrotoxicity -would recommend 6 weeks of IV abx for OM of the foot--> with IV Dapto. Pt desires home IV abx if possible-awaiting case management to assist with arranging this versus daily transportation to the [facility] (2) Peripheral arterial disease: Does have stents and history of angioplasty to bilateral LEs - follows with Dr Ramos; on 10/25/19- pt had angioplasty to RT distal SFA, Pop A, NILAY. - Continue ASA, Plavix, and warfarin for now. (3) Diabetes mellitus: A1c is 6.0% this admission. - Hold home oral agents - Sliding scale insulin Pharmacy managing (4) CKD (chronic kidney disease) stage 3, GFR 30-59 ml/min: Baseline Cr ~1.3, eGFR ~60. - On admission, Cr of 1.5. -Now back down to 1.3 -continue to hold lasix and now will restart HCTZ/lisinopril -follow BMP -Avoid nephrotoxins -renally dose meds when appropriate (5) Idiopathic interstitial pneumonia: At baseline is on 4-5L NC. Has seen Dr. Hardin, Dr. Alatorre, and Shirley Dailey in the office. - Presently at baseline breathing. - Continue prednisone 3 mg PO HS - DuoNebs PRN - Continue home O2 levels (6) Benign hypertension: BPs controlled -Restart lisinopril/HCTZ for now as above -Continue to hold Lasix for mild Cr increase. (7) Chronic diastolic CHF (congestive heart failure): Presently appears euvolemic. - Monitor weight & volume status - looks euvolemic to mildly hypovolemic on exam. - Hold Lasix and restart HCTZ as above (8) Rheumatoid arthritis: Long-standing. - Continue steroid at home dose (9) History of DVT (deep vein thrombosis): On warfarin. 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 twice daily -Follow CBC as an outpatient Follows with hematology for his essential thrombocytosis (12) DVT prophylaxis: -continue Coumadin Dispo-medically stable for discharge-awaiting arrangement of home IV antibiotics if approved by insurance Admission and Anticipated Discharge Date Admission Date: February 03, 2020 Anticipated date of discharge: 02/09/20 Subjective Patient feeling well. Denies any pain in the foot. No fevers or chills. Denies chest pains or shortness of breath. He is anxious to leave the hospital. Review of Systems Review of Systems: All systems reviewed & are unremarkable except as noted in HPI & below Physical Exam Constitutional: WD/WN, vitals as above Eyes: + anicteric sclerae Neck: trachea midline, no thyromegaly Respiratory: normal respiratory effort, lungs clear to auscultation Cardiovascular: RRR, no murmur, no edema Rate/Rhythm: regular rate and regu lar rhythm Heart Sounds: + murmur (3/6 CATHLEEN at RUSB) Chest (Breasts): Chest: normal inspection of chest Gastrointestinal (Abdomen): normal bowel sounds, soft, nontender, no hepatosplenomegaly Musculoskeletal: Extremities: + extremities abnormal to inspection (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), no cyanosis and no clubbing Neurologic: moves all extremities and awake; no focal motor deficits Psychiatric: A+Ox3, euthymic affect Lymphatic: no lymphedema Results & Data Results & Data ([facility]) Vital Signs (Past 12 Hours) Vital Signs Temp Pulse Resp BP Pulse Ox 02/08/20 15:44 36.5 C 63 16 114/68 93 02/08/20 07:15 36.5 C 67 16 116/62 93 Laboratory Results 02/08/20 02/08/20 02/08/20 Range/Units 21:25 20:13 17:11 WBC (4.8-10.8) K/uL RBC (4.7-6.1) M/uL Hgb (14.0-18.0) g/dL Hct (42-52) % MCV (80-100) fL MCH (25-34) pg MCHC (32-36) g/dL RDW Std Deviation (36.4-46.3) fL RDW Coeff of Dru (11.5-14.5) % Plt Count (130-400) K/uL MPV (7.4-10.4) fL Immature Gran % (Auto) % Neut % (Auto) % Lymph % (Auto) % [place] % (Auto) % Eos % (Auto) % Baso % (Auto) % Neut # (Auto) (1.4-6.5) K/uL Lymph # (Auto) (1.2-3.4) K/uL [place] # (Auto) (0.11-0.59) K/uL Eos # (Auto) (0-0.5) K/uL Baso # (Auto) (0-0.2) K/uL Immature Gran # (Auto) (0.00-0.02) K/uL PT (9.0-12.0) Seconds INR (0.9-1.1) Sodium (136-145) mmol/L Potassium (3.5-5.1) mmol/L Chloride (98-107) mmol/L Carbon Dioxide (21-32) mmol/L Anion Gap (3-11) BUN (7-18) mg/dl Creatinine (0.6-1.4) mg/dl Est Cr Clr Drug Dosing ml/min Est GFR ( Amer) Est GFR (Non-Af Amer) BUN/Creatinine Ratio (10-20) Glucose (70-99) mg/dl POC Glucose 140 H 134 H (70-99) mg/dl Calcium (8.5-10.1) mg/dl Magnesium (1.8-2.4) mg/dl Iron (35-175) mcg/dl TIBC (250-450) mcg/dl Transferrin (200-360) mg/dl Transferrin % Sat (20-50) % Ferritin (8-388) ng/ml Vitamin B12 (211-911) pg/ml Folate (>5.38) ng/ml Stool Occult Bld Scrn Positive A (Negative) 02/08/20 02/08/20 02/08/20 Range/Units 12:12 11:00 08:11 WBC (4.8-10.8) K/uL RBC (4.7-6.1) M/uL Hgb (14.0-18.0) g/dL Hct (42-52) % MCV (80-100) fL MCH (25-34) pg MCHC (32-36) g/dL RDW Std Deviation (36.4-46.3) fL RDW Coeff of Dru (11.5-14.5) % Plt Count (130-400) K/uL MPV (7.4-10.4) fL Immature Gran % (Auto) % Neut % (Auto) % Lymph % (Auto) % [place] % (Auto) % Eos % (Auto) % Baso % (Auto) % Neut # (Auto) (1.4-6.5) K/uL Lymph # (Auto) (1.2-3.4) K/uL [place] # (Auto) (0.11-0.59) K/uL Eos # (Auto) (0-0.5) K/uL Baso # (Auto) (0-0.2) K/uL Immature Gran # (Auto) (0.00-0.02) K/uL PT 27.5 H (9.0-12.0) Seconds INR 2.8 H (0.9-1.1) Sodium (136-145) mmol/L Potassium (3.5-5.1) mmol/L Chloride (98-107) mmol/L Carbon Dioxide (21-32) mmol/L Anion Gap (3-11) BUN (7-18) mg/dl Creatinine (0.6-1.4) mg/dl Est Cr Clr Drug Dosing ml/min Est GFR ( Amer) Est GFR (Non-Af Amer) BUN/Creatinine Ratio (10-20) Glucose (70-99) mg/dl POC Glucose 174 H 139 H (70-99) mg/dl Calcium (8.5-10.1) mg/dl Magnesium (1.8-2.4) mg/dl Iron (35-175) mcg/dl TIBC (250-450) mcg/dl Transferrin (200-360) mg/dl Transferrin % Sat (20-50) % Ferritin (8-388) ng/ml Vitamin B12 (211-911) pg/ml Folate (>5.38) ng/ml Stool Occult Bld Scrn (Negative) 02/08/20 02/08/20 02/08/20 Range/Units 07:46 07:46 06:40 WBC 19.70 H (4.8-10.8) K/uL RBC 3.30 L (4.7-6.1) M/uL Hgb 8.6 L (14.0-18.0) g/dL Hct 29.7 L (42-52) % MCV 90.0 (80-100) fL MCH 26.1 (25-34) pg MCHC 29.0 L (32-36) g/dL RDW Std Deviation 59.9 H (36.4-46.3) fL RDW Coeff of Dru 18.3 H (11.5-14.5) % Plt Count 236 (130-400) K/uL MPV 10.7 H (7.4-10.4) fL Immature Gran % (Auto) 0.5 % Neut % (Auto) 88.3 % Lymph % (Auto) 7.1 % [place] % (Auto) 2.8 % Eos % (Auto) 1.0 % Baso % (Auto) 0.3 % Neut # (Auto) 17.41 H (1.4-6.5) K/uL Lymph # (Auto) 1.39 (1.2-3.4) K/uL [place] # (Auto) 0.55 (0.11-0.59) K/uL Eos # (Auto) 0.20 (0-0.5) K/uL Baso # (Auto) 0.05 (0-0.2) K/uL Immature Gran # (Auto) 0.10 H (0.00-0.02) K/uL PT (9.0-12.0) Seconds INR (0.9-1.1) Sodium (136-145) mmol/L Potassium (3.5-5.1) mmol/L Chloride (98-107) mmol/L Carbon Dioxide (21-32) mmol/L Anion Gap (3-11) BUN (7-18) mg/dl Creatinine (0.6-1.4) mg/dl Est Cr Clr Drug Dosing ml/min Est GFR ( Amer) Est GFR (Non-Af Amer) BUN/Creatinine Ratio (10-20) Glucose (70-99) mg/dl POC Glucose (70-99) mg/dl Calcium (8.5-10.1) mg/dl Magnesium (1.8-2.4) mg/dl Iron 18 L (35-175) mcg/dl TIBC 289 (250-450) mcg/dl Transferrin 213 (200-360) mg/dl Transferrin % Sat 6 L (20-50) % Ferritin 25.7 (8-388) ng/ml Vitamin B12 745 (211-911) pg/ml Folate 13.21 (>5.38) ng/ml Stool Occult Bld Scrn (Negative) 02/08/20 Range/Units 06:40 WBC (4.8-10.8) K/uL RBC (4.7-6.1) M/uL Hgb (14.0-18.0) g/dL Hct (42-52) % MCV (80-100) fL MCH (25-34) pg MCHC (32-36) g/dL RDW Std Deviation (36.4-46.3) fL RDW Coeff of Dru (11.5-14.5) % Plt Count (130-400) K/uL MPV (7.4-10.4) fL Immature Gran % (Auto) % Neut % (Auto) % Lymph % (Auto) % [place] % (Auto) % Eos % (Auto) % Baso % (Auto) % Neut # (Auto) (1.4-6.5) K/uL Lymph # (Auto) (1.2-3.4) K/uL [place] # (Auto) (0.11-0.59) K/uL Eos # (Auto) (0-0.5) K/uL Baso # (Auto) (0-0.2) K/uL Immature Gran # (Auto) (0.00-0.02) K/uL PT (9.0-12.0) Seconds INR (0.9-1.1) Sodium 139 (136-145) mmol/L Potassium 3.2 L (3.5-5.1) mmol/L Chloride 110 H (98-107) mmol/L Carbon Dioxide 24 (21-32) mmol/L Anion Gap 5.0 (3-11) BUN 33 H (7-18) mg/dl Creatinine 1.34 D (0.6-1.4) mg/dl Est Cr Clr Drug Dosing 44.0 ml/min Est GFR ( Amer) 57.6 Est GFR (Non-Af Amer) 49.7 BUN/Creatinine Ratio 24.6 H (10-20) Glucose 124 H (70-99) mg/dl POC Glucose (70-99) mg/dl Calcium 7.8 L (8.5-10.1) mg/dl Magnesium 2.1 (1.8-2.4) mg/dl Iron (35-175) mcg/dl TIBC (250-450) mcg/dl Transferrin (200-360) mg/dl Transferrin % Sat (20-50) % Ferritin (8-388) ng/ml Vitamin B12 (211-911) pg/ml Folate (>5.38) ng/ml Stool Occult Bld Scrn (Negative) PG Care Time/CCT Total # of Minutes Spent Total Time Spent with Patient: Total time spent is greater than 50% in coordination of care (as documented) at patient's floor/unit and/or counseling patient: Coding Level of Care Code 20959 Subseq Hosp Care Lvl 2 Diagnoses Osteomyelitis of foot M86.9 Laterality: right Osteomyelitis type: unspecified type Peripheral arterial disease I73.9 Diabetes mellitus E11.9 CKD (chronic kidney disease) stage 3, GFR 30-59 ml/min N18.3 Idiopathic interstitial pneumonia J84.111 Benign hypertension I10 Chronic diastolic CHF (congestive heart failure) I50.32 Rheumatoid arthritis M06.9 History of DVT (deep vein thrombosis) Z86.718 Essential thrombocytosis D47.3 Anemia D64.9 DVT prophylaxis Z29.9 (1) Osteomyelitis of foot Laterality: right Osteomyelitis type: unspecified type Qualified Code(s): M86.9 - Osteomyelitis, unspecified
[2020-02-08] MEDS ORDERED: WARFARIN SOD 7.5 MG TAB PO SCH (21:00)
[2020-02-08] MEDS: DAPTOmycin 400 MG in SYRINGE 0 ML IV SCH (22:20)
[2020-02-08] MEDS: predniSONE 1 MG TAB PO SCH (22:28)
[2020-02-08] MEDS: CLOPIDOGREL BISULFATE 75 MG TAB PO SCH (22:29)
[2020-02-08] MEDS: ASPIRIN 81 MG ECTAB PO SCH (22:29)
[2020-02-09 06:45] LABS: Hematocrit (blood only) 29.3 % (42-52); Hemoglobin 8.3 g/dL (14.0-18.0); Mean Corpuscular Hemoglobin 25.5 pg (25-34); Mean Corpuscular Hgb Conc 28.3 g/dL (32-36); Mean Corpuscular Volume 90.2 fL (80-100); Mean Platelet Volume 10.8 fL (7.4-10.4); Platelet Count 226 K/uL (130-400); RDW Coefficient of Variation 18.4 % (11.5-14.5); RDW Standard Deviation 59.5 fL (36.4-46.3); Red Blood Count 3.25 M/uL (4.7-6.1); White Blood Count 14.52 K/uL (4.8-10.8)
[2020-02-09 07:01] LABS: BUN Creatinine Ratio 26.8 (10-20); C Reactive Protein 1.23 mg/dl (0-0.29); Calcium 7.9 mg/dl (8.5-10.1); Creatinine Clr Calc Pharmacy 51.7 ml/min; Est GFR (Non-African American) 60.4; Potassium 3.5 mmol/L (3.5-5.1)
[2020-02-09 07:04] LABS: Basophils # (auto) 0.04 K/uL (0-0.2); Basophils % (auto) 0.3 %; Eosinophils # (auto) 0.14 K/uL (0-0.5); Immature Granulocytes # (auto) 0.13 K/uL (0.00-0.02); Immature Granulocytes % (auto) 0.9 %; Lymphocytes # (auto) 1.25 K/uL (1.2-3.4); Lymphocytes % (auto) 8.6 %; Monocytes # (auto) 0.47 K/uL (0.11-0.59); Monocytes % (auto) 3.2 %; Neutrophils # (auto) 12.49 K/uL (1.4-6.5); Polychromasia 1+; Schistocytes 1+
[2020-02-09] MEDS: FERROUS SULFATE 325 MG TAB PO SCH (08:44)
[2020-02-09] MEDS: LISINOPRIL/HCTZ 20/25MG 1 TAB PO SCH (08:44)
[2020-02-09] MEDS: HYDROXYUREA 500 MG CAP PO SCH (08:45)
[2020-02-09] MEDS: INSULIN ASPART 100 UNITS/ML 3 ML PEN SC SCH ×2 (08:46→13:24)
--- NOTE | 2020-02-09 11:05 | Pharmacy Report ---
Pharmacy Glycemic Short Note 2 - Date of Service February 09, 2020 - Glycemic Short BSG Results (Last 24 hours): 02/08/20 02/08/20 02/08/20 12:12 17:11 21:25 Glucose POC Glucose 174 H 134 H 140 H 02/09/20 02/09/20 06:15 08:14 Glucose 132 H POC Glucose 134 H OUTPATIENT ANTIDIABETIC REGIMEN: * Glipizide 5 mg PO BIDM * Metformin 1,000mg PO BIDM * A1c = 6% on 02/04/20 ASSESSMENT: * BSGs have been relatively well-controlled with Novolog only. Carb coverage appears to be adequate, with very little correctional insulin required. * No changes required at this time. PLAN FOR INPATIENT GLYCEMIC CONTROL: * Hold outpatient oral diabetes medications * Basal insulin: none * Bolus insulin: no change * NovoLog per scale ACHS or Q6hrs while NPO * Goal Range: Low 110 mg/dL - High 140 mg/dL * Correction Factor: 25 mg/dL/unit * Nutritional / Prandial insulin per carb ratio of 1 unit per 8 grams CHO consumed PLAN FOR DISCHARGE: * A1c is in goal range for age/co-morbidities. No changes needed to outpatient regimen unless patient is experiencing hypoglycemia
--- NOTE | 2020-02-09 14:18 | Discharge Summary ---
Date of Service February 09, 2020 Admission HPI Per Admitting Provider Mr. Edy Mazariegos is a 79 yo M who is coming in because his home health nurse had noticed that he had drainage and odor on his right lateral foot. He asked his neighbor who is a nurse and she instructed him that he should come in. He noticed that he had redness about 1.5 weeks ago but did not come in at that time. He states that he was seen by his doctor on Friday and he hadn't said anything about his foot. He was not on any antibiotics recently. The pain is 5/10 currently. He has had two prior amputations, one in November and one in January. The most recent surgery was in January w/ Dr. Osman Coates with [facility] o.. He has Diabetes II and PAD, he had multiple stents placed in the vessels of his left leg, but his right leg was cleared without stents placed. He has a history of HFpEF w/ ECHO from 2018 in July that showed mild to moderate aortic stenosis. He is on 4-5 L of oxygen at home and saw Ashlie with pulmonology on 12/21 for interstitial PNA, with pleural plaque from asbestos. He takes prednisone for this. He has a 12 pack year history of smoking and quit 45 years prior. He has no sick contacts, has not had a fever, night sweats, nausea, or vomiting. No recent travel, he lives at home and has been isolating. He lives alone but has someone visit him daily. Wali Reyes: [phone] Principal Diagnosis Right foot osteomyelitis Discharge Exam Constitutional WD/WN, vitals as above Eyes + anicteric sclerae Neck trachea midline, no thyromegaly Respiratory normal respiratory effort, lungs clear to auscultation Cardiovascular RRR, no murmur, no edema Rate/Rhythm: regular rate and regular rhythm Heart Sounds: + murmur (3/6 CATHLEEN at RUSB) Chest (Breasts) Chest: normal inspection of chest Gastrointestinal (Abdomen) normal bowel sounds, soft, nontender, no hepatosplenomegaly Musculoskeletal Extremities: + extremities abnormal to inspection (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), no cyanosis and no clubbing Skin + ulcer (R lat foot with 2cm open ulcer with exudate, mild erythema) Neurologic moves all extremities and awake; no focal motor deficits Psychiatric A+Ox3, euthymic affect Lymphatic no lymphedema Discharge Data Allergies Allergy/AdvReac Type Severity Reaction Status Date / Time Sulfa (Sulfonamide Allergy Intermediate HIVES Verified 02/03/20 20:13 Antibiotics) atorvastatin AdvReac Mild LEG CRAMPS Verified 02/03/20 20:13 cilostazol AdvReac Mild DIARRHEA Verified 02/03/20 20:13 Consultations 02/03/20 20:10 ED Decision to Admit Stat 02/03/20 22:29 Consult Orthopedic Surgery Routine 02/07/20 17:26 Consult Case Management - Discharge Planning Routine Ordered Studies 02/04/20 17:55 MR foot RT w/o con Routine X-ray right foot Chest x-ray Hospital Course (1) Osteomyelitis of foot: Foot x-ray shows osteomyelitis distal aspect fifth metatarsal as well as base of proximal phalanx fifth toe. MRI shows osteomyelitis in the 5th toe as well as at the prior surgery site. - Orthopedics consulted -plan to opt for conservative management only with IV abx, follow closely as an outpatient with possible surgical debridement if not improving - Wound cx with MRSA sensitive to Dapto and Vanco -BCxs remain NGTD -Leukocytosis persists but is improved down to 14; he seems to always have a high leukocytosis but is neutrophil predominant likely related to multiple recurrent infections -Have since discontinued the Zosyn and switched vanc to daptomycin on 02/04 to avoid nephrotoxicity -would recommend 6 weeks of IV abx for OM of the foot--> with IV Dapto. He will drive [facility] -Check weekly CBC, CMP, CPK, ESR, CRP, and PT/INR while on antibiotics (2) Peripheral arterial disease: Does have stents and history of angioplasty to bilateral LEs - follows with Dr Ramos; on 10/25/19- pt had angioplasty to RT distal SFA, Pop A, NILAY. - Continue ASA, Plavix, and warfarin for now. (3) Diabetes mellitus: A1c is 6.0% this admission. -Continue home glipizide (4) CKD (chronic kidney disease) stage 3, GFR 30-59 ml/min: Baseline Cr ~1.3, eGFR ~60. - On admission, Cr of 1.5. -Now back down to 1.14 after holding HCTZ/lisinopril -continue HCTZ/lisinopril -follow BMP as an outpatient -Avoid nephrotoxins -renally dose meds when appropriate (5) Idiopathic interstitial pneumonia: At baseline is on 4-5L NC. Has seen Dr. Hardin, Dr. Alatorre, and Shirley Dailey in the office. - Presently at baseline breathing. - Continue prednisone 3 mg PO HS - Continue home O2 levels (6) Benign hypertension: BPs controlled -Continue lisinopril/HCTZ (7) Chronic diastolic CHF (congestive heart failure): Presently appears euvolemic. - Monitor weight & volume status - looks euvolemic to mildly hypovolemic on exam. -Continue lisinopril/HCTZ as above for BP control (8) Rheumatoid arthritis: Long-standing. - Continue steroid at home dose (9) History of DVT (deep vein thrombosis): On warfarin. 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 twice daily -Follow CBC as an outpatient Follows with hematology for his essential thrombocytosis -Recommend GI follow-up for EGD/colonoscopy when stable for positive Hemoccult and iron deficiency anemia rule out malignancy (12) DVT prophylaxis: -continue Coumadin Dispo-medically stable for discharge Total Time Total Time Spent Total Time Spent (In Minutes): Greater than 30 minutes Total Time Includes: Examination of the Patient, Discharge Planning and Medication Reconciliation Discharge Plan Discharge Items Patient Disposition: Home - Home Health Services Reason For Visit: RIGHT FOOT INFECTION Discharge Diagnosis: Right foot osteomyelitis Condition on Discharge: Good Activity: As commented below Bathing: No limitations Exercise/Sports: As tolerated Exercise Comment: Partial weight bearing on heel on right Weightbearing: Right partial Non-emergency contact: Primary Care Provider and Surgeon Call non-emergency contact if: you have any medication questions, your symptoms worsen, your pain is not controlled, your pain is worsening, your pain is unusual for you, your pain is concerning for you, you have a fever, your temperature is above 101, your wound has increased redness, your wound has increased drainage and your wound pain has increased Follow-up/Referrals: Emeterio Hardin MD [Primary Care Provider] - (Please follow up with Dr. Hardin within 1-2 weeks.) Osman Dumont DO [Surgeon] - (Please follow up with Dr. Dumont within 1 week. ) Diet: Carb Consistent or DM2 and Heart Healthy Addtl Attending Provider Instructions: Continue IV Daptomycin once daily for the next 5 1/2 weeks for the infection in your foot. You will need once weekly labs to include CBC, CMP, Creatine kinase, PT/INR, ESR, and CRP while on antibiotics which can be drawn by the nurse at [facility] Continue dressing changes every other day or daily as needed for drainage. Follow up with Dr. Dumont of Orthopedic Surgery within 1 week. YOU ARE SET UP TO RECEIVE IV ANTIBIOTICS AT [facility]. PULL AROUND TO THE [facility]TR[facility]. You're 1st two appointments are 02/09 and Saturday 02/10 at 12:30pm. Please arrived at 12:15pm. They will assist with scheduling the rest of your appointment times. If you have any questions, please call central scheduling [phone] You are also found to have iron deficiency anemia and should continue on the iron pills twice a day. Please have your primary care physician check your blood count with your weekly labs and keep an eye on your anemia level. You did have microscopic blood found in your stool. Your primary care physician should refer you to a temper mill roller see about performing endoscopies to look inside your bowel for source of bleeding. Pending Studies at Discharge: No Stand-Alone Forms: My [facility] [email or web address], Smoking Cessation Medications and DC Order Prescriptions: New ferrous sulfate 325 mg (65 mg iron) Tablet,Delayed Release (Dr/Ec) 325 mg PO BIDM Qty: 60 RF: 0 daptomycin 500 mg recon soln 400 mg IV DAILY 38 Days Qty: 38 RF: 0 Continued hydroxyurea 500 mg capsule 500 mg PO BID RF: 0 (DME) OneTouch Verio test strips Strip See Rx Instructions .ROUTE .MEDSUPPLY Qty: 100 RF: 3 prednisone 1 mg tablet 3 mg PO QPM RF: 0 furosemide [Lasix] 20 mg tablet 20 mg PO QAM Qty: 90 RF: 0 ibuprofen 200 mg Tablet 200 mg PO Q6H PRN (Reason: Pain) RF: 0 glipizide [Glucotrol XL] 5 mg tablet extended release 24hr 5 mg PO BID RF: 0 clopidogrel 75 mg tablet 75 mg PO PM RF: 0 aspirin [Aspir-81] 81 mg tablet,delayed release (DR/EC) 81 mg PO HS RF: 0 warfarin 5 mg tablet 7.5 mg PO PM RF: 0 lisinopril-hydrochlorothiazide 20-25 mg tablet 1 tab PO QAM RF: 0 potassium gluconate 595 mg (99 mg) Tablet Extended Release 595 mg PO PM RF: 0 mupirocin 2 % ointment 1 appln TOP BID PRN (Reason: skin breakdown) RF: 0 metformin 1,000 mg Tablet 1,000 mg PO BID RF: 0 oxycodone 5 mg capsule 5 mg PO Q6H PRN (Reason: pain) Qty: 10 RF: 0 Discharge Orders: Discharge Order (Routine); Ordered 02/09/20 Ordered By: Rosi Baez/Other Patient Handouts: Caring for Your PICC Dc Admission Data Admit Date/Time: 02/03/20 21:03 Attending Provider: Rosi Trinh Admit Provider: Tony Weston Primary Care Provider: Emeterio Hardin Other Providers: Timoteo Preston ; [place] ; Ravi Valladares ; Osman Dumont Other Interventions: Discharge Summary Assessment (RN) Last Done: 02/09/20 13:45 Coding Level of Care Code D/C Day Management >30 mins Diagnoses Osteomyelitis of foot M86.9 Laterality: right Osteomyelitis type: unspecified type Peripheral arterial disease I73.9 Diabetes mellitus E11.9 CKD (chronic kidney disease) stage 3, GFR 30-59 ml/min N18.3 Idiopathic interstitial pneumonia J84.111 Benign hypertension I10 Chronic diastolic CHF (congestive heart failure) I50.32 Rheumatoid arthritis M06.9 History of DVT (deep vein thrombosis) Z86.718 Essential thrombocytosis D47.3 Anemia D64.9 DVT prophylaxis Z29.9
[2020-02-09] MEDS ORDERED: DAPTOmycin 400 MG in SYRINGE 0 ML IV SCH ×2 (15:00→16:00)
[2020-02-11] MEDS ORDERED: WARFARIN SOD 5 MG TAB PO SCH (21:00)
== END 2020-02-09 16:00 | disposition home or self-care (01) | DRG 540 ==
LOC: ED 17:42 → 2N 21:03 → SUATTDRO 21:03 → 2N 21:58 → 2W 02-05 08:05 → 3E 02-07 17:03

== ENCOUNTER 2020-02-23 09:33 | Inpatient (IN) ==
--- NOTE | 2020-02-18 14:18 | Anesthesiology Consultation ---
Date of Service February 18, 2020 Assessment & Plan (1) Encounter for pre-operative examination: Per nursing phone assessment on 02/16: Travel screen- Traveled to [facility] (to see sisters 2 weeks ago). Wears mask during visit. No known COVID-19 positive contacts. No current COVID-19 related symptoms. Patient scheduled for preop protocol COVID-19 testing on 02/17 ([facility]). Awaiting results. - Cardiovascular note: 02/18/20: Aware of upcoming debridement procedure. "Given his history of stent thrombosis recommend him staying on all meds. If they need him to stop something would be OK to hold Plavix but continue warfarin and ASA. Patient is aware." They are also communicating this information to surgeon office per their note. - Seen by PCP 02/11/20: F/U for recent admission to [facility] from 02/02-02/09/2020 "secondary to osteomyelitis of dull right foot with wound cultures positive for MRSA sensitive to daptomycin vancomycin. Orthopedics was consulted and recommended conservative therapy with IV antibiotics. Arrangements have been set up for him to receive 6 weeks of IV antibiotics with daptomycin and weekly monitoring of laboratory studies. During his admission his CBC documented anemia. Hemoglobin on 02/09/2020 was 8.3. He likely is anemic secondary to recent orthopedic surgeries and prolonged hospitalizations however his stool was heme positive. He was started on oral iron as laboratory studies documented iron deficiency but he has been intolerant noting he developed severe diarrhea after 4 doses. His bowel movements are starting to normalize. he already follows regularly with Hematology d/t his h/o thrombocytosis therefore I am requesting f/u with Hematology to evaluate for the possibility of IV iron therapy. We should also consider a GI workup d/t his heme-positive stools. He reports no difficulty with his breathing as long as he is using his oxygen 3 liters 24 hrs a day 7 days a week. He has a f/u appt scheduled with Dr. Dumont his orthopedic surgeon on 02/15/2020. He is to change his bandage on the right foot every other day. His bandage was changed today and he will have a neighbor helped him on 02/13/2020." On exam at visit "Lungs: Clear without wheezes, rales, or rhonchi." - Seen by pulm 12/22/19: chronic hypoxemia resp failure- continue O2. Idiopathic interstitial pneumonia- continue prednisone. Diastolic CHF (chronic)- continue Lasix, K. Pt requesting to follow up with Dr Hardin (PCP) for pulm care. - Seen by jose a 11/16/19: Platelets slightly about goal but had active infection with associated leukocytosis. Tolerating Hydrea. Pt resistant to any further invasive testing to further characterize possible metastatic lesions seen on Feb CT/PET scan. Pt remains asymptomatic which would be unusual with widespread metastatic bone disease- jose a still concerned. Will follow up - S/P Right foot 2nd Toe Amputation, 3, 4, 5, Flexor Tenotomy + debridement: : MAC sedation + PNB at [facility], no major apparent complications per post-op anesthesia progress note - S/P Right Great Toe Partial Amputation: 11/12/19: GA with LMA. No issues per anesthesia record - Check BSG, coags AM DOS Chart Review Chart Review: Acceptable Risk for Surgery (pending evaluation AM DOS) and Patient NOT seen in Pre Admission Testing History Surgery Operation Date: 02/23/20 11:50 Proposed Procedures p Right Foot Irrigation and Debridement 5th Metatarsal Head with Possible Amniotic Tissue Graft Application - Osman Dumont, DO Height/Weight Height: 5 ft 9 in Weight: 68.039 kg Allergies Allergy/AdvReac Type Severity Reaction Status Date / Time Sulfa (Sulfonamide Allergy Intermediate HIVES Verified 02/18/20 08:12 Antibiotics) atorvastatin AdvReac Mild LEG CRAMPS Verified 02/18/20 08:12 cilostazol AdvReac Mild DIARRHEA Verified 02/18/20 08:12 Medications Home Medications Medication Instructions Recorded Confirmed Last Taken potassium gluconate 595 mg PO PM 08/06/19 02/18/20 01/13/20 17:30 hydroxyurea 500 mg capsule 500 mg PO BID 08/07/19 02/18/20 01/13/20 17:30 blood sugar diagnostic #100 ea 10/21/19 02/18/20 Unknown aspirin [Aspir-81] 81 mg PO HS 11/01/19 02/18/20 01/10/20 clopidogrel 75 mg PO PM 11/01/19 02/18/20 01/10/20 glipizide [Glucotrol XL] 5 mg PO BID 11/01/19 02/18/20 01/13/20 17:30 ibuprofen 200 mg PO Q6H PRN 11/01/19 02/18/20 01/12/20 lisinopril-hydrochlorothiazide 1 tab PO QAM 11/01/19 02/18/20 01/13/20 07:00 warfarin 7.5 mg PO Q OTHER DAY 11/01/19 02/18/20 01/10/20 metformin 1,000 mg PO BID 11/11/19 02/18/20 01/13/20 17:30 mupirocin 1 appln TOP BID PRN 11/11/19 02/18/20 01/11/20 furosemide 20 mg tablet 20 mg PO QAM #90 tab 12/22/19 02/18/20 01/13/20 07:00 prednisone 1 mg tablet 3 mg PO QPM 12/27/19 02/18/20 01/13/20 17:30 oxycodone 5 mg PO Q6H PRN #10 cap 01/14/20 02/18/20 Unknown daptomycin 400 mg IV DAILY 38 Days #38 ea 02/08/20 02/18/20 Unknown warfarin 5 mg PO Q OTHER DAY 02/17/20 02/18/20 Unknown Past Medical History Medical History (Updated 02/18/20 @ 14:07 by Kiley Patten) Anemia chronic, hgb stable in the 8's range per chart review Aortic valve stenosis Mild to moderate on 07/2019 echo (but GUY 0.92cm2) follows with Dr. Roddy Ramos Arteriosclerotic cardiovascular disease (ASCVD) Benign hypertension Chronic diastolic CHF (congestive heart failure) Per records Diabetes mellitus, type 2 DVT (deep venous thrombosis) per records Essential thrombocytosis History of bladder cancer 2003--sx and "treatment" History of skin cancer Hyperlipidemia Idiopathic interstitial pneumonia On chronic O2. Currently on steroids* On home oxygen therapy 3L N/C at all times Peripheral arterial disease Does have stents and history of angioplasty to bilateral LEs - follows with Dr Ramos; on 10/25/19- pt had angioplasty to RT distal SFA, Pop A, NILAY. Pt takes Plavix and Coumadin Peripheral vascular disease PICC (peripherally inserted central catheter) in place to arm (daptomycin) Polycythemia vera follows with Dr. Alvarado Rheumatoid arthritis SDH (subdural hematoma) 10/2019. Admitted [facility] for traumatic SDH 2/ mechanical fall -- fall also resulted in R prosthetic hip dislocation, s/p reduction. No surgical tx needed for SDH per neurosurgery recommendations Secondary pulmonary hypertension Tremor Bilateral hands- improved Past Family History Family History Family/Other Coronary heart disease Cancer Family/Other Heart disease Cancer Mother Family history of diabetes mellitus Brother Family history of diabetes mellitus Brother Family history of diabetes mellitus Sister Family history of diabetes mellitus Sister Family history of diabetes mellitus Other No family history of adverse response to anesthesia Past Surgical History Surgical History Amputated toe of left foot Amputated toe of right foot 2nd toe History of bilateral cataract extraction History of bladder surgery removal of cancerous tumor History of colonoscopy History of cystoscopy multiple History of Mohs micrographic surgery for skin cancer x2 History of procedure for peripheral vascular disease bilt lower extremities--3 stents in left LE History of right hip replacement (Acute) History of testicular surgery left for hydrocele History of tooth extraction all teeth Social History Smoking Status: Former smoker Smoking cigarettes per day: 1 PPD smoked for 15 years quit in 1974 Do You Dip or Chew Tobacco: No Smoking End Date: 45 YRS AGO Hx Alcohol Use: No Hx Substance Use: No substance use type: does not use Testing Laboratory Results 02/09/20 WBC 14.52 H/H 8.3/29.3 (chronic, stable anemia) PLATELETS 226 SODIUM 139 POTASSIUM 3.5 CHLORIDE 109 CO2 23 BUN 31 CREATININE 1.14 GLUCOSE 132 02/03/20 PT 30.8 PTT 34.4 INR 3.1 02/04/20 HGBA1C 6.0% Electrocardiogram Date: 02/04/20 SR with first degree AVB at 66bpm. Chest X-Ray Date: 02/18/20 FINDINGS: Progressive interstitial change superimposed upon pre-existing chronic interstitial and/or fibrotic change. Heart remains mildly enlarged. Slightly progressive superimposed bibasilar infiltrative change. IMPRESSION: Mildly progressive interstitial edema versus diffuse bilateral interstitial infiltrative change. On abx, patient subsequently seen by PCP 02/09/20 and per exam at that visit: "Lungs: Clear without wheezes, rales, or rhonchi." Echocardiogram Date: 08/07/19 EF: 60-65% LV Function: normal RWMA: + none Other Findings: + LVH (mild/concentric) RV mildly dilated. RV systolic function is mildly reduced. RA mildly dilated. Moderate AR. Mild to moderate AV stenosis- GUY= 0.92cm2, Severe mitral annular calcification. RVSP= >60mmHg. Inferior vena cava is mildly dialted. Other Testing Other Testing LE Arterial Duplex 12/09/19= RT MINGO= mild disease; LT= moderate disease. RT TBI= severe disease; LT= moderate disease. 50-74% restenosis RT prox/mild SFA; Pop A is patent, post intervention. RT prox Erica is occluded; prox/mid TREAD TUBER MACHINE OPERATOR is occluded with flow reconstitution distally via collaterals. RT NILAY is patent with >70% restenosis in mid segment, post intervention
--- NOTE | 2020-02-22 13:35 | History & Physical Report ---
Date of Service February 22, 2020 Assessment & Plan (1) Ulcer of right foot: Schedule right foot I & D of lateral ulceration at the 5th MTP joint, possible implantation Stimulan antibiotic beads. All potential risks, benefits, complications, alternatives, and rehab have been discussed with the patient and he wishes to proceed. He will be scheduled for 02.23.2020. History of Present Illness Chief Complaint: right foot non healing ulcer Primary Care Provider: Emeterio Hardin MD This is a patient who has undergone previous right foot toe amputations and an I & D of the lateral aspect of the foot, the most recent was ~6 weeks ago. The lateral aspect of the foot hasn't had a healing of the ulceration and he is currently being set up for surgical tx. Allergies Allergy/AdvReac Type Severity Reaction Status Date / Time Sulfa (Sulfonamide Allergy Intermediate HIVES Verified 02/22/20 07:31 Antibiotics) atorvastatin AdvReac Mild LEG CRAMPS Verified 02/22/20 07:31 cilostazol AdvReac Mild DIARRHEA Verified 02/22/20 07:31 Home Medications Home Medications Medication Instructions Recorded Confirmed Type potassium gluconate 595 mg PO PM 08/06/19 02/22/20 History hydroxyurea 500 mg capsule 500 mg PO BID 08/07/19 02/22/20 History blood sugar diagnostic #100 ea 10/21/19 02/22/20 Rx aspirin [Aspir-81] 81 mg PO HS 11/01/19 02/22/20 History clopidogrel 75 mg PO PM 11/01/19 02/22/20 History glipizide [Glucotrol XL] 5 mg PO BID 11/01/19 02/22/20 History ibuprofen 200 mg PO Q6H PRN 11/01/19 02/22/20 History lisinopril-hydrochlorothiazide 1 tab PO QAM 11/01/19 02/22/20 History warfarin 7.5 mg PO Q OTHER DAY 11/01/19 02/22/20 History metformin 1,000 mg PO BID 11/11/19 02/22/20 History mupirocin 1 appln TOP BID PRN 11/11/19 02/22/20 History furosemide 20 mg tablet 20 mg PO QAM #90 tab 12/22/19 02/22/20 Rx prednisone 1 mg tablet 3 mg PO QPM 12/27/19 02/22/20 History oxycodone 5 mg PO Q6H PRN #10 cap 01/14/20 02/22/20 Rx daptomycin 400 mg IV DAILY 38 Days #38 ea 02/08/20 02/22/20 Rx warfarin 5 mg PO Q OTHER DAY 02/17/20 02/22/20 History Past Med/Surg History Family History Family/Other Coronary heart disease Cancer Family/Other Heart disease Cancer Mother Family history of diabetes mellitus Brother Family history of diabetes mellitus Brother Family history of diabetes mellitus Sister Family history of diabetes mellitus Sister Family history of diabetes mellitus Other No family history of adverse response to anesthesia Social History Preferred Language: Finnish Communication Ability: Effective Drum Maker Required: No Beliefs That Will Affect Care: None marital status: / Current Living Situation: Alone current occupational status: retired Feels Safe at Home: Yes Safety Concerns: Feels Safe At This Time Smoking Status: Former smoker Cigarettes Per Day: 1 PPD smoked for 15 years quit in 1974 ; Second Hand Exposure: Yes ; Hx Alcohol Use: No Hx Substance Use: No during the past year weight has: remained stable Physical Exam Constitutional: well developed and well nourished; no acute distress ENMT: external ear and nose normal, oropharynx normal Neck: trachea midline, no thyromegaly Respiratory: normal respiratory effort, lungs clear to auscultation (Patient using portable oxygen tank) Cardiovascular: Rate/Rhythm: regular rate and regular rhythm Gastrointestinal (Abdomen): normal bowel sounds, soft, nontender, no hepa tosplenomegaly Musculoskeletal: Right foot: great toe and 2nd toe amputations. Lateral foot near the 5th MTP with ulceration and mild erythema. Neurologic: normal touch/pain/proprioception Psychiatric: A+Ox3, euthymic affect Lymphatic: no cervical or axillary lymphadenopathy
[~2020-02-23 09:33] MED LIST changes: -ASPI81TA28 PO; +CEFAZOLIN 1000MG 1,000 MG/7.5 ML SYR IV SCH; -CLOP1TAB5 PO; -CMD5 PO; -CODCAP4; +DAPTOMYCIN CONSULT ACTIVE PRN; +DAPTOmycin 400 MG in SYRINGE 0 ML IV SCH; -HYDROXYUREA PO; -LISI20TA11 PO; +LR 15ML/HR IV SCH; -LVNIS120 SQ; -MULT-506 PO; -PRD/1 PO; -ROSU5TAB PO; -ULT50X PO
[2020-02-23] MEDS ORDERED: HYDROmorphone INJ 1 MG/ML SYRINGE IV PRN (10:44)
[2020-02-23] MEDS ORDERED: fentaNYL citrate 100 MCG/2 ML VIAL IV PRN (10:44)
[2020-02-23] MEDS ORDERED: ONDANSETRON INJ 2 MG/ML 2 ML VIAL IV PRN ×2 (10:44→17:27)
[2020-02-23] MEDS ORDERED: ATROPINE SULFATE 0.1 MG/ML 10ML SYR IV PRN (10:44)
[2020-02-23] MEDS ORDERED: ePHEDrine sulfate 50 MG/ML AMP IV PRN (10:44)
[2020-02-23 10:50] LABS: INR 4.5 (0.9-1.1); Prothrombin Time 43.6 Seconds (9.0-12.0)
[2020-02-23 11:05] LABS: Partial Thromboplastin Time 54.8 Seconds (21.0-31.0)
[2020-02-23] MEDS ORDERED: fentaNYL citrate 100 MCG/2 ML VIAL ONE (11:48)
[2020-02-23] MEDS ORDERED: MIDAZOLAM HCL 1 MG/ML 2ML VIAL ONE (11:48)
--- NOTE | 2020-02-23 12:14 | History & Physical Bridge Note ---
Date of Service February 23, 2020 History & Physical Bridge Note I have examined the patient, reviewed the History & Physical and in the interval since the performance of the History & Physical I have noted the following changes of clinical significance: no changes noted
[2020-02-23] MEDS ORDERED: BACITRACIN INJ 50,000 UNIT VIAL ONE (12:18)
[2020-02-23] MEDS ORDERED: LIDOCAINE HCL 2% 2 ML VIAL/AMP(20MG/ML) INFIL ONE (12:37)
[2020-02-23] MEDS ORDERED: PROPOFOL IV EMULSION 10 MG/ML 20 ML VIAL IV ONE (12:38)
[2020-02-23] MEDS ORDERED: ONDANSETRON INJ 2 MG/ML 2 ML VIAL ONE (12:38)
[2020-02-23] MEDS ORDERED: PHENYLEPHRINE 100MCG/ML 5ML SYR ONE (13:03)
--- NOTE | 2020-02-23 13:54 | Post Operative Brief Note ---
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 2) severe peripheral vascular disease: I identified the patient and participated in the time-out.: Yes Procedure Operation Date: 02/23/20 11:30 Actual Procedures p Right Foot Irrigation and Debridement of 5th Metatarsal Head Ulcer Measuring 3.0cm x 2.75cm s right foot irrigation and debridement lateral distal ulcer including skin, fascia, dermis, and Joint Capsule of 5th Metatarsal Head Ulcer Measuring 3cm x 2.75cm, application of TheraSkin split thickness skin allograft (Right) - Osman Dumont DO Surgeon Osman Dumont DO Rating Clerk Scar Husain PA-C Estimated Blood Loss 1 Findings Consistent with Post-Op Diagnosis Specimens Aerobic anaerobic Gram stain right fifth metatarsal head ulceration Anesthesia Type MAC Regional Complications none Disposition Accompanied Patient To Recovery: Yes Disposition: Recovery Room
--- NOTE | 2020-02-23 14:33 | XRay Report ---
XR chest 1V portable CLINICAL HISTORY: hypoxia dyspnea COMPARISON STUDY: 02/03/2020 FINDINGS: Central catheter positioned in the right atrium. Progressive bibasilar parenchymal infiltra bossman versus developing pulmonary edema. Mild stable cardiomegaly. Mild prominence of pulmonary vascula ture. IMPRESSION: 1. Findings of progressive bibasilar parenchymal infiltrates versus developing pulmonary edematous ch melo. 2. PICC catheter placed in the right atrium. 3. No evidence for pneumothorax. ACT 112: Negative or not required by law. The above report was generated using voice recognition software. It may contain grammatical, syntax or spelling errors. Electronically signed by: Shun Batista M.D. 02/23/2020 2:32 PM
--- NOTE | 2020-02-23 15:40 | Consultation ---
Date of Consultation February 23, 2020 Assessment & Plan (1) Hypoxia: 79yo C male with history of idiopathic interstitial PNA on long-term steroids and home O2 of 4-5L, COPD, diastolic CHF with post-operative hypoxia. Patient had debridement of RLE toe today. Saturations in the 80's despite being on NC + Facemask. Patient is asymptomatic, hemodynamically stable. Pulmonary exam is unremarkable, no rales/rhonchi/wheezes. CXR read as progressive bibasilar parenchymal infiltrates verses developing pulmonary edematous change - overall appears similar to prior images - patient with history of IIP. Patient does not appear to be hypervolemic at this time. -Admit to medical floor -Continuous pulse oximetry -Continue supplemental O2 as needed, goal saturations of 88-92% -DuoNebs PRN -Will give small dose of IV Lasix 10mg - patient with history of , cautious use of diuretics -Continue PO Lasix -Will check labs - BMP, Mg, PO4, CBC, LFTs, BNP and VBG Present on Admission?: Yes (2) Osteomyelitis: Patient with history of PAD, DM, osteomyelitis of RLE s/p right foot irrigation and debridement performed today. Surgery well tolerated. Patient afebrile, HD stable, non-toxic in appearance -Post operative management, wound care, pain control per primary team -Continue Daptomycin 400mg IV daily Present on Admission?: Yes (3) Anemia: Chronic. Baseline Hgb 8-9 -Check CBC Present on Admission?: Yes (4) Aortic valve stenosis: Chronic. -Fluid maintenance, avoidance of overdiuresis Present on Admission?: Yes (5) Arteriosclerotic cardiovascular disease (ASCVD): Chronic. Stable -Continue ASA, Plavix -Continue Lisinopril Present on Admission?: Yes (6) Benign hypertension: Blood pressure stable at present -Continue Lisinopril/HCTZ -Continue to monitor Present on Admission?: Yes (7) Chronic diastolic CHF (congestive heart failure): Patient possibly with mild congestion and volume overload -Check BNP -Lasix 10mg IV x 1 -Continue Lasix 20mg po daily -Monitor I/Os and weights Present on Admission?: Yes (8) CKD (chronic kidney disease) stage 3, GFR 30-59 ml/min: Baseline Cr of appx 1.3. BUN=31, Cr=1.14 during last labs 02/09/20 -Check labs -Avoid nephrotoxins -Renal dosing where needed Present on Admission?: Yes (9) Diabetes mellitus: Chronic. Well controlled with [id number] on 02/04/20 -Continue Glipizide 5mg po BID -Continue Metformin -CC diet as tolerated Present on Admission?: Yes (10) Idiopathic interstitial pneumonia: Chronic. Patient on 4-5L NC at baseline and reports his saturations are typically in the 80's to low 90's. He has seen Drs. Mcgraw and Shirley Dailey in the office. -Continue supplemental O2 -Continue Prednisone 3mg po daily. Patient on usp chronic steroids - low threshold for stress dosing if patient becomes hypotensive or shows signs of adrenal insufficiency Present on Admission?: Yes (11) Peripheral arterial disease: Chronic. History of stents and angioplasty to bilateral LEs. Patient follows with Dr. Ramos. Extremities warm, well perfused with palpable pulses today -Continue ASA 81mg po daily -Continue Plavix 75mg po daily -Continue Coumadin Present on Admission?: Yes (12) History of DVT (deep vein thrombosis): Chronic -Continue Coumadin at home dose when cleared by Surgery -Monitor INR Present on Admission?: Yes (13) Essential thrombocytosis: Chronic -Check CBC -Continue Hydroxyurea 500mg po BID (14) Rheumatoid arthritis: Chronic -Continue daily Prednisone Hospitalist Team will continue to follow Present on Admission?: Yes History of Present Illness Requesting Physician: Dr. Dumont Reason for Consultation: Hypoxia Attending Physician: Osman Dumont, DO History of Present Illness Edy Mazariegos is an 79yo C male with history of DM/PAD/HFpEF, two prior amputations with multiple stents in the vessels of his LLE. He has history of interstitial pneumonia, pleural plaque from asbestos exposure. Patient uses 4-5 L of O2 at baseline and reports that his saturations are typically 88-92%, sometimes in the low 80'S . He follows with Pulmonology. Patient was recently admitted to [facility] from with complaint of drainage and odor of his right lateral foot drainage. He was subsequently diagnosed with Osteomyelitis of the distal aspect of the fifth metatarsal and the base of the proximal phalanx of the 5th toe. Patient was treated with IV antibiotics, Dapt omycin at the [facility]. He was admitted today for scheduled I&D of lateral ulceration of the 5th MTP joint. Surgery went well with no complications identified. Patient is in minimal pain at present. Hypoxic after the procedure with sats persistently in the 80s despite being on NC + Facemask. Patient denies SOB, cough, wheeze or chest tightness. Allergies Allergy/AdvReac Type Severity Reaction Status Date / Time Sulfa (Sulfonamide Allergy Intermediate HIVES Verified 02/23/20 10:25 Antibiotics) atorvastatin AdvReac Mild LEG CRAMPS Verified 02/23/20 10:25 cilostazol AdvReac Mild DIARRHEA Verified 02/23/20 10:25 Home Medications Home Medications Medication Instructions Recorded Confirmed Type potassium gluconate 595 mg PO PM 08/06/19 02/23/20 History hydroxyurea 500 mg capsule 500 mg PO BID 08/07/19 02/23/20 History blood sugar diagnostic #100 ea 10/21/19 02/22/20 Rx aspirin [Aspir-81] 81 mg PO HS 11/01/19 02/23/20 History clopidogrel 75 mg PO PM 11/01/19 02/23/20 History glipizide [Glucotrol XL] 5 mg PO BID 11/01/19 02/23/20 History ibuprofen 200 mg PO Q6H PRN 11/01/19 02/23/20 History lisinopril-hydrochlorothiazide 1 tab PO QAM 11/01/19 02/23/20 History warfarin 7.5 mg PO Q OTHER DAY 11/01/19 02/23/20 History metformin 1,000 mg PO BID 11/11/19 02/23/20 History mupirocin 1 appln TOP BID PRN 11/11/19 02/23/20 History furosemide 20 mg tablet 20 mg PO QAM #90 tab 12/22/19 02/23/20 Rx prednisone 1 mg tablet 3 mg PO QPM 12/27/19 02/23/20 History oxycodone 5 mg PO Q6H PRN #10 cap 01/14/20 02/23/20 Rx daptomycin 400 mg IV DAILY 38 Days #38 ea 02/08/20 02/23/20 Rx warfarin 5 mg PO Q OTHER DAY 02/17/20 02/23/20 History Patient History Family History Family/Other Coronary heart disease Cancer Family/Other Heart disease Cancer Mother Family history of diabetes mellitus Brother Family history of diabetes mellitus Brother Family history of diabetes mellitus Sister Family history of diabetes mellitus Sister Family history of diabetes mellitus Other No family history of adverse response to anesthesia Social History Preferred Language: Surinamese Communication Ability: Effective 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 Beliefs That Will Affect Care: None marital status: / Current Living Situation: Alone current occupational status: retired Other Information That Helps Us Care for You: No Feels Safe at Home: Yes Safety Concerns: Feels Safe At This Time Smoking Status: Former smoker Cigarettes Per Day: 1 PPD smoked for 15 years quit in 1974 ; Do You Dip or Chew Tobacco: No ; Smoking End Date: 45 YRS AGO ; Second Hand Exposure: Yes ; Tobacco Cessation Education Requested by Patient: No Hx Alcohol Use: No Hx Substance Use: No during the past year weight has: remained stable Review of Systems Review of Systems: All systems reviewed & are unremarkable except as noted in HPI & below Physical Exam Physical Exam: General: frail, elderly male patient resting comfortably, NAD, non-toxic in appearance, AA&O x 4, Sachin hugger in place Skin: warm, dry, intact, no rashes or lesions, wound of RLE with dressing in place HEENT: NC/AT, PERRL, EOMI, anicteric sclera, conjunctiva without injection, external ear normal to inspection and nontender, nares patent, moist mucus membranes, dentition intact, no oropharyngeal lesions, neck supple, trachea midline, no LAD, no thyromegaly, no JVD Heart: +S1/S2, regular, no m/r/g Lungs: equal air entry bilaterally, no rales/rhonchi/wheezes Abd: +BS, soft, NT/ND, no masses/organomegaly/ascites Ext: warm, 2+ pulses in UE/LE bilaterally, no clubbing/cyanosis, trace pitting edema of bilateral LEs Neuro: nonfocal, patient AA&O x 4, speech intact, no facial droop, moving all extremities on command with equal strength 5/5 Results & Data ([facility]) Vital Signs (Past 12 Hours) Vital Signs Temp Pulse Pulse Resp BP Pulse Ox 02/23/20 15:00 64 16 100/54 L 91 02/23/20 14:45 36.6 C 64 18 98/59 L 91 02/23/20 14:35 63 16 102/47 L 90 02/23/20 14:25 65 16 103/51 L 85 L 02/23/20 14:15 63 18 89/46 L 87 L 02/23/20 14:05 67 16 92/50 L 82 L 02/23/20 13:55 68 15 91/51 L 80 L 02/23/20 13:45 66 15 87/48 L 91 02/23/20 13:35 63 17 94/52 L 95 02/23/20 13:25 63 17 105/49 L 97 02/23/20 13:18 36.5 C 72 16 102/58 L 84 L 02/23/20 11:13 62 18 90/50 L 02/23/20 10:33 36.5 C 69 20 104/55 L 92 Laboratory Results Lab Results 02/23/20 02/23/20 02/23/20 Range/Units 10:12 10:22 13:20 PT 43.6 H (9.0-12.0) Seconds INR 4.5 H (0.9-1.1) APTT 54.8 H* (21.0-31.0) Seconds PTT Ratio 2.0 POC Glucose 96 131 H (70-99) mg/dl Diagnostic Findings XR chest 1V portable CLINICAL HISTORY: hypoxia dyspnea COMPARISON STUDY: 02/03/2020 FINDINGS: Central catheter positioned in the right atrium. Progressive bibasilar parenchymal infiltrates versus developing pulmonary edema. Mild stable cardiomegaly. Mild prominence of pulmonary vasculature. IMPRESSION: 1. Findings of progressive bibasilar parenchymal infiltrates versus developing pulmonary edematous change. 2. PICC catheter placed in the right atrium. 3. No evidence for pneumothorax. ACT 112: Negative or not required by law. The above report was generated using voice recognition software. It may contain grammatical, syntax or spelling errors. Electronically signed by: Shun Batista M.D. 02/23/2020 2:32 PM ECG Additional Comments: EKG from 02/04/20 - SR with 1st degree AV block, rate 66, normal axis, NV prolonged at 240, QRS=94, TWo=960, no acute ischemic changes PG Care Time/CCT Total # of Minutes Spent Total Time Spent with Patient: Total time spent is greater than 50% in coordination of care (as documented) at patient's floor/unit and/or counseling patient: Coding Level of Care Code 62866 OBS Care - Level 3 Diagnoses Hypoxia R09.02 Osteomyelitis M86.9 Osteomyelitis type: unspecified type Osteomyelitis location: foot Laterality: right Anemia D64.9 Anemia type: unspecified type Aortic valve stenosis I35.0 Cardiac valve disease etiology: etiology unspecified Arteriosclerotic cardiovascular disease (ASCVD) I25.10 Benign hypertension I10 Chronic diastolic CHF (congestive heart failure) I50.32 CKD (chronic kidney disease) stage 3, GFR 30-59 ml/min N18.3 Diabetes mellitus E11.9 Diabetes mellitus type: type 2 Diabetes mellitus usp insulin use: without usp use Diabetes mellitus complication status: without complication Idiopathic interstitial pneumonia J84.111 Peripheral arterial disease I73.9 History of DVT (deep vein thrombosis) Z86.718 Essential thrombocytosis D47.3 Rheumatoid arthritis M06.9 Rheumatoid arthritis location: unspecified site Rheumatoid factor presence: unspecified presence (1) Anemia Anemia type: unspecified type Qualified Code(s): D64.9 - Anemia, unspecified (2) Aortic valve stenosis Cardiac valve disease etiology: etiology unspecified Qualified Code(s): I35.0 - Nonrheumatic aortic (valve) stenosis (3) Diabetes mellitus Diabetes mellitus type: type 2 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
[2020-02-23] MEDS ORDERED: ACETAMINOPHEN 500 MG TAB ONE (16:02)
--- NOTE | 2020-02-23 16:55 | Anesthesiology Progress Note ---
Date of Service February 23, 2020 Anesthesia Post Procedure Vital Signs Vital Signs: Temp Pulse Pulse Resp BP Pulse Ox 02/23/20 16:00 89 17 105/62 82 L 02/23/20 15:45 74 17 101/53 L 85 L 02/23/20 15:30 70 19 99/50 L 88 L 02/23/20 15:15 69 15 99/50 L 88 L 02/23/20 15:00 64 16 100/54 L 91 02/23/20 14:45 36.6 C 64 18 98/59 L 91 02/23/20 14:35 63 16 102/47 L 90 02/23/20 14:25 65 16 103/51 L 85 L 02/23/20 14:15 63 18 89/46 L 87 L 02/23/20 14:05 67 16 92/50 L 82 L 02/23/20 13:55 68 15 91/51 L 80 L 02/23/20 13:45 66 15 87/48 L 91 02/23/20 13:35 63 17 94/52 L 95 02/23/20 13:25 63 17 105/49 L 97 02/23/20 13:18 36.5 C 72 16 102/58 L 84 L 02/23/20 11:13 62 18 90/50 L 02/23/20 10:33 36.5 C 69 20 104/55 L 92 Pain Intensity Right Foot: Pain Intensity: 3 Transfer of Care Handoff Completed per policy Notes Mental Status: alert / awake / arousable and participated in evaluation Patient Amnestic to Procedure: Yes Nausea / Vomiting: adequately controlled Pain: adequately controlled Airway Patency, RR, SpO2: see Notes below BP & HR: stable & adequate Hydration State: stable & adequate Anesthetic Complications: no major complications apparent and Pt Satisfied with anesthetic care Notes: Patient with known underlying severe lung disease on constant O2. SpO2 in 80's on NC in recovery, around 90-92 when on FM oxygen. Patient was sitting upright and conversant. Denied any worsening SOB. Lung sounds clear to auscultation. No wheezes or crackles. CXR in recovery largely unchanged when compared to CXR in January 2020. Medicine service contacted and saw patient in recovery. Deferred to them for care of this patient moving forward.
[2020-02-23] MEDS ORDERED: NALOXONE HCL 0.4 MG/1 ML VIAL/CARP IV PRN (17:27)
[2020-02-23] MEDS ORDERED: TRAMADOL HCL 50 MG TABLET PO PRN (17:27)
[2020-02-23] MEDS ORDERED: TAMSULOSIN HCL 0.4 MG CAP PO PRN (17:27)
[2020-02-23] MEDS ORDERED: DAPTOMYCIN CONSULT ACTIVE PRN ×2 (17:27→23:16)
[2020-02-23] MEDS ORDERED: IBUPROFEN 200 MG TAB PO PRN (17:27)
[2020-02-23] MEDS ORDERED: ALUMINUM/MAGNESIUM SUSP 30 ML UDC PO PRN (17:27)
[2020-02-23] MEDS ORDERED: bisacodyL 10 MG SUPP PR PRN (17:27)
[2020-02-23] MEDS ORDERED: NON-FORMULARY MEDICATION (Oxycodone 5 MG) PO PRN (17:27)
[2020-02-23] MEDS ORDERED: HYDROmorphone INJ 0.5 MG/0.5 ML SYR IV PRN (17:27)
[2020-02-23] MEDS ORDERED: METOCLOPRAMIDE HCL INJ 5 MG/ML 2 ML VIAL IV PRN (17:27)
[2020-02-23] MEDS ORDERED: MAGNESIUM HYDROXIDE SUSP 30 ML UDC PO PRN (17:27)
[2020-02-23] MEDS ORDERED: FUROSEMIDE 10 MG in SYRINGE 0 ML IV ONE (17:45)
--- NOTE | 2020-02-23 17:46 | Operative Report (OR) ---
DATE OF OPERATION: 02/23/2020 PREOPERATIVE DIAGNOSES: 1. 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 2. Severe peripheral vascular disease. POSTOPERATIVE DIAGNOSES: 1. 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 2. Severe peripheral vascular disease. PROCEDURES: 1. Right foot irrigation and debridement of fifth metatarsal head ulcer measuring 3.0 cm x 2.75 cm full thickness. 2. Right foot irrigation and debridement of lateral distal ulcer including skin, fascia, dermis and joint capsule of fifth metatarsal head measuring 3 cm x 2.75 cm. 3. Application of TheraSkin split thickness skin allograft to fifth metatarsal head region, right foot. SURGEON: Osman Dumont DO. [employer]ITTED GOODS: Scar Husain PA-C who was present for patient positioning, sterile prep and drape, management of retractors and instruments. He was present through the critical portions of the case including wound closure, application of sterile dressing and transport of the patient to recovery. ANESTHESIA: MAC, regional. SPECIMENS: Aerobic, anaerobic, Gram stain of ulceration, right lateral distal foot. DRAINS: None. COMPLICATIONS: None. BLOOD LOSS: 1 mL. PERTINENT HISTORY: This is an 79-year-old gentleman who has severe diabetic neuropathic ulcer at the lateral fifth metatarsal with severe peripheral vascular disease. He has had a previous amputation of some of the toes in his right foot, which had been healed as anticipated. However, the ulceration persists over the fifth metatarsal head. He attempted and failed all conservative measures and he is here scheduled for surgery as indicated. All potential risks, benefits, complications, alternatives, rehab potential for incomplete relief of symptoms, need for further surgery, DVT, PE, , persistent pain, swelling, scarring, weakness, neurovascular injury, wound complications, need for further amputation and surgery were discussed with the patient. The patient decided to proceed with the procedure as indicated. DESCRIPTION OF PROCEDURE: The patient was taken to the operative suite, placed supine on the operating room table. After review of consent and identification of proper operative site, the patient was sedated and a regional anesthetic had been administered to the right lower extremity. Right lower extremity was then sterilely prepped and draped in usual fashion, elevated and partially exsanguinated with an Esmarch bandage and Esmarch tourniquet applied over sterile surgical towel at the level of the ankle. Next, a 15 blade scalpel was used to sharply incise and debride the 3 cm x 2.75 cm ulceration full thickness lateral distal aspect of the right foot overlying the fifth metatarsal head region. Sharp debridement was performed of the skin, the fascia, the dermis and the exposed joint capsule of the fifth metatarsophalangeal joint region. After punctate bleeding was restored to the periphery and excision of any necrotic appearing tissue had been completed, ulceration was cultured for aerobic, anaerobic and Gram stain specimens, which were then sent to the laboratory for further evaluation. Next, a rongeur and curette were then used to roughen the tissue to encourage bleeding. There were some areas of punctate granulation tissue, which were left in place. Next, copious lavage with sterile saline with bacitracin was then performed of the lateral ulceration until clear. There was noted to be no exposed bone at this time. Joint capsule was thinned due to local infection and erosion of the tissue; however, there is no exposed bone at this time. Next, a TheraSkin split thickness skin graft allograft was then removed from frozen specimen, thawed in sterile saline, trimmed to fit and then placed over the lateral ulceration and stapled in place. Small ellipse of tissue was then excised both proximally and distal to the ulceration with a 15 blade scalpel to take the rounded appearance of the ulcer and make it more ellipsoid to close the space and to reduce the healing time. Next, the split thickness skin graft was then stabilized with multiple skin clips. Finally, a sterile compressive dressing was applied consisting of Adaptic, sterile 4 x 4s, ABD pad, 4-inch cast padding and Eric wrap was applied. The tourniquet was released. Normal hyperemic response slowly returned to the right foot and toes, and the patient was then awakened and taken to recovery in stable condition. I attest to the content of the Intraoperative Record and any orders documented therein. Any exception s are noted below.
[2020-02-23] MEDS: SODIUM CHLORIDE 0.9% 1000ML 1,000 ML IV SCH (17:59)
[2020-02-23 18:07] LABS: HCO3 VBG 22 mmol/L; PCO2 VBG 36 mmHg (38-50); PO2 VBG 75 mmHg
[2020-02-23 18:08] LABS: Oxygen Saturation VBG < 60.0 %
[2020-02-23 18:11] LABS: Hematocrit (blood only) 25.2 % (42-52); Hemoglobin 7.3 g/dL (14.0-18.0); Mean Corpuscular Hemoglobin 26.4 pg (25-34); Mean Corpuscular Volume 91.3 fL (80-100); RDW Coefficient of Variation 19.7 % (11.5-14.5); RDW Standard Deviation 64.6 fL (36.4-46.3); Red Blood Count 2.76 M/uL (4.7-6.1)
[2020-02-23] MEDS: OXYCODONE HCL IR 5 MG TAB (IMMEDIATE RELEASE) PO PRN (18:22)
[2020-02-23] MEDS ORDERED: GLUCAGON FOR INJ 1 MG VIAL SQ PRN (18:23)
[2020-02-23] MEDS ORDERED: DEXTROSE 50% 50 ML SYRINGE IV PRN (18:23)
[2020-02-23] MEDS ORDERED: GLUCOSE 40% GEL 15 GM TUBE PO PRN (18:23)
[2020-02-23] MEDS ORDERED: CARBOHYDRATES FOR HYPOGLYCEMIA PO PRN (18:23)
[2020-02-23] MEDS ORDERED: GLUCOSE 10 TABS/TUBE PO PRN (18:23)
[2020-02-23 18:24] LABS: Albumin Level 2.5 gm/dl (3.4-5.0); BUN Creatinine Ratio 23.1 (10-20); Basophils # (auto) 0.04 K/uL (0-0.2); Basophils % (auto) 0.4 %; Bilirubin Direct 0.2 mg/dl (0-0.2); Calcium 7.7 mg/dl (8.5-10.1); Eosinophils # (auto) 0.13 K/uL (0-0.5); Eosinophils % (auto) 1.3 %; Est GFR (Non-African American) 53.5; Giant Platelets 1+; Immature Granulocytes # (auto) 0.05 K/uL (0.00-0.02); Immature Granulocytes % (auto) 0.5 %; Lymphocytes # (auto) 0.61 K/uL (1.2-3.4); Lymphocytes % (auto) 5.9 %; Magnesium 1.8 mg/dl (1.8-2.4); Monocytes # (auto) 0.51 K/uL (0.11-0.59); Monocytes % (auto) 4.9 %; Neutrophils # (auto) 9.06 K/uL (1.4-6.5); Platelet Count 95 K/uL (130-400); Platelet Estimate Decreased (Normal); Potassium 3.5 mmol/L (3.5-5.1); Tear Drop Cells 1+
[2020-02-23 18:25] LABS: Prothrombin Time 48.7 Seconds (9.0-12.0)
[2020-02-23] MEDS ORDERED: SODIUM CHLORIDE 0.9% 250 ML IV PRN ×2 (18:25→18:26)
[2020-02-23 18:29] LABS: Bilirubin,Total 0.6 mg/dl (0.2-1); Phosphorus 3.5 mg/dl (2.5-4.9)
[2020-02-23] MEDS ORDERED: MUPIROCIN 2% OINT 22 GM TUBE EXT PRN (18:59)
[2020-02-23] MEDS: ALBUT/IPRATROP 3MG/0.5MG NEB 3 ML VIAL NEB SCH ×2 (19:53→23:02)
[2020-02-23] MEDS: HYDROXYUREA 500 MG CAP PO SCH (20:41)
[2020-02-23] MEDS: CLOPIDOGREL BISULFATE 75 MG TAB PO SCH (20:42)
[2020-02-23] MEDS: ASPIRIN 81 MG ECTAB PO SCH (20:42)
[2020-02-23] MEDS: SENNA 8.6 MG TAB PO SCH (20:43)
[2020-02-23] MEDS: predniSONE 1 MG TAB PO SCH (20:44)
[2020-02-23] MEDS: DOCUSATE SODIUM 100 MG CAP PO SCH (20:44)
[2020-02-23] MEDS: INSULIN GLARGINE SOLOSTAR 100 UNITS/ML 3 ML PEN SC SCH (20:47)
[2020-02-23] MEDS: INSULIN ASPART 100 UNITS/ML 3 ML PEN SC SCH (20:47)
[2020-02-23] MEDS ORDERED: METFORMIN HCL 500 MG TAB PO SCH (21:00)
[2020-02-23] MEDS ORDERED: NON-FORMULARY MEDICATION (Potassium Gluconate 595 MG) PO SCH (21:00)
[2020-02-23] MEDS ORDERED: GLIPIZIDE 5 MG PO SCH (21:00)
[2020-02-23] MEDS ORDERED: PIPERACILL/TAZOBAC CONSULT ACTIVE PRN (22:05)
[2020-02-23] MEDS ORDERED: VANCOMYCIN CONSULT ACTIVE PRN (22:05)
--- NOTE | 2020-02-23 22:09 | Communication Note ---
Date of Service: February 23, 2020 CXR with edema vs. pneumonia. Compared with prior and significant for change in my opinion. CT Chest ordered to help differentiate. There was dependent bilateral lower lobe consolidations with concern with MRSA history, benefits outweigh risks of starting antibiotic treatment for possible pneumonia. Daptomycin has no lung penetrance and will not offer coverage for lung source. Discussed with pharmacist and will make change to Vanc and Zosyn. Prior MRSA soft tissue micro susceptability report reviewed. Patient acutely ill with worsening oxygen requirement today. Will need to watch fluid hemodynamics. Unable to treat both infection and edema as pressures are too soft to currently give diuretics. Will re-evaluate through out the night. Might need lasix after getting blood products. Resident Activity Tracking Resident Involvement: Resident Care Provided Care Provided: Adult Hospital Medicine
[2020-02-23] MEDS ORDERED: VANCOMYCIN HCL 1,000 MG in SODIUM CHLORIDE 0.9% 250 ML IV SCH (22:15)
[2020-02-23] MEDS ORDERED: PIPERACILLIN/TAZOBACTAM 3.375 GM in DEXTROSE 5% 100 ML IV SCH (22:15)
[2020-02-23] MEDS ORDERED: PIPERACILLIN/TAZOBACTAM 3.375 GM in DEXTROSE 5% 100 ML IV ONE (22:30)
[2020-02-23] MEDS ORDERED: VANCOMYCIN HCL 1,500 MG in SODIUM CHLORIDE 0.9% 500 ML IV SCH (22:30)
[2020-02-23] MEDS: ACETAMINOPHEN 500 MG TAB PO SCH (22:36)
--- NOTE | 2020-02-23 22:53 | Pharmacy Report ---
Pharmacy Abx Initial Consult - Date of Service February 23, 2020 - Pharmacy Dosing Scope Date of Consult: 02/23/20 Consultation requested by: Dr. Pritchard Pharmacy is consulted to initiate Vancomycin and Zosyn IV dosing therapy, order appropriate labs and adjust drug dose/frequency. - Subjective The patient is a 79 year old M admitted on 02/23/20 13:41. - Objective Height: 5 ft 9 in Weight: 65 kg Vital Signs (Past 12hrs): Vital Signs Temp Pulse Pulse Pulse Resp BP BP 02/23/20 22:29 70 22 106/67 02/23/20 22:17 35.8 C L 76 24 91/51 L 02/23/20 21:30 35.8 C L 76 24 91/51 L 02/23/20 21:08 36.4 C L 71 14 93/63 L 02/23/20 20:45 36.3 C L 69 20 100/60 02/23/20 20:25 36.3 C L 73 20 94/54 L 02/23/20 19:56 86 16 02/23/20 19:32 36.4 C L 18 92/53 L 02/23/20 18:28 72 86/43 L 02/23/20 17:24 36.8 C 77 18 91/52 L 02/23/20 16:56 36.6 C 85 18 86/46 L 02/23/20 16:15 02/23/20 16:00 89 17 105/62 02/23/20 15:45 74 17 101/53 L 02/23/20 15:30 70 19 99/50 L 02/23/20 15:15 69 15 99/50 L 02/23/20 15:00 64 16 100/54 L 02/23/20 14:45 36.6 C 64 18 98/59 L 02/23/20 14:35 63 16 102/47 L 02/23/20 14:25 65 16 103/51 L 02/23/20 14:15 63 18 89/46 L 02/23/20 14:05 67 16 92/50 L 02/23/20 13:55 68 15 91/51 L 02/23/20 13:45 66 15 87/48 L 02/23/20 13:35 63 17 94/52 L 02/23/20 13:25 63 17 105/49 L 02/23/20 13:18 36.5 C 72 16 102/58 L 02/23/20 11:13 62 18 90/50 L Pulse Ox Pulse Ox 02/23/20 22:29 86 L 02/23/20 22:17 02/23/20 21:30 02/23/20 21:08 87 L 02/23/20 20:45 82 L 02/23/20 20:25 70 L 02/23/20 19:56 91 02/23/20 19:32 02/23/20 18:28 86 L 02/23/20 17:24 87 L 02/23/20 16:56 89 L 02/23/20 16:15 87 L 02/23/20 16:00 82 L 02/23/20 15:45 85 L 02/23/20 15:30 88 L 02/23/20 15:15 88 L 02/23/20 15:00 91 02/23/20 14:45 91 02/23/20 14:35 90 02/23/20 14:25 85 L 02/23/20 14:15 87 L 02/23/20 14:05 82 L 02/23/20 13:55 80 L 02/23/20 13:45 91 02/23/20 13:35 95 02/23/20 13:25 97 02/23/20 13:18 84 L 02/23/20 11:13 Lab Results (24hrs): Laboratory Tests (24 Hours) 02/23/20 02/23/20 17:50 17:50 WBC 10.40 Neut # (Auto) 9.06 H Creatinine 1.26 Est Cr Clr Drug Dosing 43.0 Micro Results: 02/23/20 13:00 Gram Stain - Pending Foot Aerobic and Anaerobic Culture - Pending - Assessment & Plan Assessment * 79 year old M with history of osteomyelitis of RLE * Underwent right foot irrigation and debridement today * Originally received daptomycin, but switching to vanc/zosyn for concerns of PNA Plan Vancomycin IV * Estimated PK Parameters: Vd 0.7 L/kg, Lázaro 0.035 hr-1, t1/2 20 hr * Loading dose: 1500 mg (23 mg/kg) * Maintenance dose: 1250 mg IV (19 mg/kg) every 24 hours * Goal trough level : 15 to 20 mcg/mL * Trough will be ordered prior to third or fourth dose appropriately Piperacillin/tazobactam * 3.375 g bolus administered over 30 minutes, then 3.375 g IV extended infusion every 8 hours for CrCl greater than 20 mL/min Pharmacy will continue to follow and will adjust dose/frequency as necessary. Thank you.
[2020-02-24] MEDS: SODIUM CHLORIDE 0.9% 1000ML 1,000 ML IV SCH (02:30)
[2020-02-24] MEDS: ALBUT/IPRATROP 3MG/0.5MG NEB 3 ML VIAL NEB SCH ×6 (03:29→23:53)
[2020-02-24] MEDS ORDERED: PIPERACILLIN/TAZOBACTAM 3.375 GM in DEXTROSE 5% 100 ML IV SCH (04:00)
[2020-02-24] MEDS: ACETAMINOPHEN 500 MG TAB PO SCH ×3 (05:10→21:25)
[2020-02-24 07:41] LABS: INR 5.4 (0.9-1.1); Prothrombin Time 52.3 Seconds (9.0-12.0)
--- NOTE | 2020-02-24 07:46 | XRay Report ---
XR chest 1V portable HISTORY: Hypoxia. worsening O2 requirement COMPARISON: Chest 02/23/2020. FINDINGS: The right PICC terminates in the distal SVC/right atrium. This remains unchanged. No pneumo thorax. Bilateral airspace opacities have improved. The heart remains borderline enlarged. No pleural effusions. IMPRESSION: Interval improvement in the bilateral airspace opacities. ACT 112: Negative or not required by law. Electronically signed by: Rafat Kendall M.D. 02/24/2020 7:45 AM
[2020-02-24 07:50] LABS: BUN Creatinine Ratio 23.8 (10-20); Creatinine Clr Calc Pharmacy 38.8 ml/min; Est GFR (African American) 54.1; Est GFR (Non-African American) 46.7; Potassium 3.8 mmol/L (3.5-5.1)
[2020-02-24 07:54] LABS: Hematocrit (blood only) 28.2 % (42-52); Hemoglobin 8.1 g/dL (14.0-18.0); Mean Corpuscular Hemoglobin 26.3 pg (25-34); Mean Corpuscular Hgb Conc 28.7 g/dL (32-36); Mean Corpuscular Volume 91.6 fL (80-100); Nucleated RBC # (auto) 0.02 K/uL (0-0); Nucleated RBC % (auto) 0.2 %; Platelet Count 92 K/uL (130-400); Platelet Estimate Decreased (Normal); RDW Coefficient of Variation 19.1 % (11.5-14.5); RDW Standard Deviation 63.3 fL (36.4-46.3); Red Blood Count 3.08 M/uL (4.7-6.1); White Blood Count 11.17 K/uL (4.8-10.8)
[2020-02-24] MEDS: DAPTOmycin 400 MG in SYRINGE 0 ML IV SCH (07:56)
[2020-02-24] MEDS: INSULIN ASPART 100 UNITS/ML 3 ML PEN SC SCH ×4 (07:57→21:24)
[2020-02-24] MEDS: INSULIN GLARGINE SOLOSTAR 100 UNITS/ML 3 ML PEN SC SCH (07:58)
[2020-02-24] MEDS: HYDROXYUREA 500 MG CAP PO SCH (07:58)
[2020-02-24] MEDS: MULTIVITAMIN TAB PO SCH (07:59)
--- NOTE | 2020-02-24 08:03 | CT Scan Report ---
CT OF THE CHEST WITHOUT IV CONTRAST CLINICAL HISTORY: Hypoxic, pulm edema vs. infection COMPARISON STUDY: Chest CT September 08, 2019. Chest radiograph February 23, 2020. PET/CT September [address] DOSE: 622.84 mGycm TECHNIQUE: Axial images of the chest were obtained without IV contrast. Images were reviewed in the axial, sagittal, and coronal planes. IV contrast was not administered for this examination. Automat ed exposure control was utilized for the study. A dose lowering technique was utilized adhering to t he principles of ALARA. FINDINGS: The heart is mildly enlarged. There is mild dilatation of the central pulmonary arteries. Prominent mediastinal lymph nodes are unchanged prior CT. There is no pericardial effusion. There are trace bilateral pleural effusions. Associated bilateral lower lobe airspace opacities are noted. A p artially calcified 1.3 cm right upper lobe nodule is similar to prior exam. The additional previously described bilateral pulmonary nodules are obscured on this examination. Interlobular septal thickeni ng and ground glass opacities within the lungs are noted. There is no pneumothorax. Numerous scleroti c skeletal lesions are unchanged since prior PET/CT and chest CT. Several pathologic fractures within the thoracic spine are also unchanged. IMPRESSION: 1. Interlobular thickening and groundglass glass pattern is within the lungs which favor pulmonary ed natalia. An infectious process could appear similar but is considered less likely. 2. Trace bilateral pleural effusions with bilateral lower lobe airspace opacities which favor atelect asis although consolidation is within the differential. 3. No significant change in numerous blastic skeletal metastases. 4. Mild dilatation of the central pulmonary arteries which suggests pulmonary arterial hypertension. ACT 112: Negative or not required by law. Electronically signed by: Andi Oliver M.D. 02/24/2020 8:02 AM
[2020-02-24] MEDS: DOCUSATE SODIUM 100 MG CAP PO SCH ×2 (08:26→21:24)
--- NOTE | 2020-02-24 08:40 | Anesthesiology Progress Note ---
Date of Service February 24, 2020 Anesthesia Post Procedure Vital Signs Vital Signs: Temp Pulse Pulse Pulse Pulse Resp BP 02/24/20 08:00 36.5 C 54 L 18 02/24/20 07:20 66 66 18 02/24/20 04:40 37.3 C 49 L 17 02/24/20 04:33 37.1 C 67 18 02/24/20 04:23 36.9 C 68 20 02/24/20 03:31 65 19 02/24/20 03:30 68 25 H 02/23/20 23:46 37.4 C 61 22 02/23/20 23:03 74 74 17 02/23/20 22:30 36.7 C 76 24 92/55 L 02/23/20 22:29 70 22 106/67 02/23/20 22:17 35.8 C L 76 24 91/51 L 02/23/20 21:30 35.8 C L 76 24 91/51 L 02/23/20 21:08 36.4 C L 71 14 93/63 L 02/23/20 20:45 36.3 C L 69 20 100/60 02/23/20 20:25 36.3 C L 73 20 94/54 L 02/23/20 19:56 86 16 02/23/20 19:32 36.4 C L 18 02/23/20 18:28 72 02/23/20 17:24 36.8 C 77 18 02/23/20 16:56 36.6 C 85 18 02/23/20 16:15 02/23/20 16:00 89 17 02/23/20 15:45 74 17 02/23/20 15:30 70 19 02/23/20 15:15 69 15 02/23/20 15:00 64 16 02/23/20 14:45 36.6 C 64 18 02/23/20 14:35 63 16 02/23/20 14:25 65 16 02/23/20 14:15 63 18 02/23/20 14:05 67 16 02/23/20 13:55 68 15 02/23/20 13:45 66 15 02/23/20 13:35 63 17 02/23/20 13:25 63 17 02/23/20 13:18 36.5 C 72 16 02/23/20 11:13 62 18 02/23/20 10:33 36.5 C 69 20 BP Pulse Ox Pulse Ox 02/24/20 08:00 154/69 H 92 02/24/20 07:20 99 02/24/20 04:40 159/80 H 95 02/24/20 04:33 129/76 94 02/24/20 04:23 117/80 95 02/24/20 03:31 97 02/24/20 03:30 99 02/23/20 23:46 127/66 100 02/23/20 23:03 95 02/23/20 22:30 86 L 02/23/20 22:29 86 L 02/23/20 22:17 02/23/20 21:30 02/23/20 21:08 87 L 02/23/20 20:45 82 L 02/23/20 20:25 70 L 02/23/20 19:56 91 02/23/20 19:32 92/53 L 02/23/20 18:28 86/43 L 86 L 02/23/20 17:24 91/52 L 87 L 02/23/20 16:56 86/46 L 89 L 02/23/20 16:15 87 L 02/23/20 16:00 105/62 82 L 02/23/20 15:45 101/53 L 85 L 02/23/20 15:30 99/50 L 88 L 02/23/20 15:15 99/50 L 88 L 02/23/20 15:00 100/54 L 91 02/23/20 14:45 98/59 L 91 02/23/20 14:35 102/47 L 90 02/23/20 14:25 103/51 L 85 L 02/23/20 14:15 89/46 L 87 L 02/23/20 14:05 92/50 L 82 L 02/23/20 13:55 91/51 L 80 L 02/23/20 13:45 87/48 L 91 02/23/20 13:35 94/52 L 95 02/23/20 13:25 105/49 L 97 02/23/20 13:18 102/58 L 84 L 02/23/20 11:13 90/50 L 02/23/20 10:33 104/55 L 92 Pain Intensity Right Foot: Pain Intensity: 4 Notes Mental Status: alert / awake / arousable Patient Amnestic to Procedure: Yes Nausea / Vomiting: adequately controlled Pain: adequately controlled Airway Patency, RR, SpO2: stable & adequate BP & HR: stable & adequate Hydration State: stable & adequate Anesthetic Complications: no major complications apparent and Pt Satisfied with anesthetic care
[2020-02-24] MEDS ORDERED: FUROSEMIDE 20 MG in SYRINGE 0 ML IV ONE (08:45)
--- NOTE | 2020-02-24 08:56 | Orthopedic Progress Note ---
Date of Service February 24, 2020 Assessment & Plan (1) Ulcer of right foot: POD #1 s/p 1. Right foot irrigation and debridement of fifth metatarsal head ulcer measuring 3.0 cm x 2.75 cm full thickness. 2. Right foot irrigation and debridement of lateral distal ulcer including skin, fascia, dermis and joint capsule of fifth metatarsal head measuring 3 cm x 2.75 cm. 3. Application of TheraSkin split thickness skin allograft to fifth metatarsal head region, right foot NWB RLE at all times. Dressing to remain in place at all times for the next week. If it becomes saturated, keep adaptic over the graft material and change the gauze and cast padding. Appreciate medicine input. D/C planning--uncertain. May need rehab vs. SNF to keep weight off the foot. Admission and Anticipated Discharge Date Admission Date: February 23, 2020 Supervising Physician Co-Signing Physician Notes Patient seen and examined. Agree with SONNY Husain's note as above. Right foot dressing clean, dry, and intact. Mild bloody drainage on the dressings, no purulent drainage. No erythema spreading up the leg. He reports improvement compared to preoperatively. Pain is controlled. Subjective Doing well today. No foot complaints. Pain is controlled. Physical Exam Constitutional: well developed and well nourished; no acute distress ENMT: external ear and nose normal, oropharynx normal Neck: trachea midline, no thyromegaly Respiratory: normal respiratory effort, lungs clear to auscultation (Patient using portable oxygen tank) Cardiovascular: Rate/Rhythm: regular rate and regular rhythm Gastrointestinal (Abdomen): normal bowel sounds, soft, nontender, no hepatosplenomegaly Musculoskeletal: Right foot: dressing C/D/I. Toes are mobile. Neurologic: normal touch/pain/proprioception Psychiatric: A+Ox3, euthymic affect Lymphatic: no cervical or axillary lymphadenopathy Results & Data ([facility]) Vital Signs (Past 12 Hours) Vital Signs Temp Pulse Pulse Pulse Resp BP BP 02/24/20 08:00 36.5 C 54 L 18 154/69 H 02/24/20 07:20 66 66 18 02/24/20 04:40 37.3 C 49 L 17 159/80 H 02/24/20 04:33 37.1 C 67 18 129/76 02/24/20 04:23 36.9 C 68 20 117/80 02/24/20 03:31 65 19 02/24/20 03:30 68 25 H 02/23/20 23:46 37.4 C 61 22 127/66 02/23/20 23:03 74 74 17 02/23/20 22:30 36.7 C 76 24 92/55 L 02/23/20 22:29 70 22 106/67 02/23/20 22:17 35.8 C L 76 24 91/51 L 02/23/20 21:30 35.8 C L 76 24 91/51 L 02/23/20 21:08 36.4 C L 71 14 93/63 L Pulse Ox 02/24/20 08:00 92 02/24/20 07:20 99 02/24/20 04:40 95 02/24/20 04:33 94 02/24/20 04:23 95 02/24/20 03:31 97 02/24/20 03:30 99 02/23/20 23:46 100 02/23/20 23:03 95 02/23/20 22:30 86 L 02/23/20 22:29 86 L 02/23/20 22:17 02/23/20 21:30 02/23/20 21:08 87 L
[2020-02-24] MEDS ORDERED: FUROSEMIDE 20 MG TAB PO SCH (09:00)
[2020-02-24] MEDS ORDERED: LISINOPRIL/HCTZ 20/25MG 1 TAB PO SCH (09:00)
[2020-02-24] MEDS ORDERED: DAPTOmycin 500 MG VIAL IV SCH (09:00)
[2020-02-24 09:21] LABS: Prothrombin Time 55.7 Seconds (9.0-12.0)
[2020-02-24 09:37] LABS: INR 5.8 (0.9-1.1)
[2020-02-24 09:38] LABS: Hematocrit (blood only) 28.9 % (42-52); Hemoglobin 8.3 g/dL (14.0-18.0); Mean Corpuscular Hemoglobin 26.3 pg (25-34); Mean Corpuscular Hgb Conc 28.7 g/dL (32-36); Mean Corpuscular Volume 91.5 fL (80-100); Nucleated RBC # (auto) 0.03 K/uL (0-0); Nucleated RBC % (auto) 0.3 %; Platelet Count 99 K/uL (130-400); Platelet Estimate Decreased (Normal); RDW Standard Deviation 63.2 fL (36.4-46.3); Red Blood Count 3.16 M/uL (4.7-6.1); White Blood Count 12.02 K/uL (4.8-10.8)
[2020-02-24] MEDS ORDERED: PHYTONADIONE 5 MG TAB PO STA (10:53)
--- NOTE | 2020-02-24 11:06 | Hospitalist Progress Note ---
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 Patient had debridement of RLE toe on 02/22. Saturations in the 80's despite being on NC + Facemask. Patient is asymptomatic, hemodynamically stable. CXR read as progressive bibasilar parenchymal infiltrates verses developing pulmonary edematous change - overall appears similar to prior images - patient with history of IIP. Had worsening resp status overnight after receiving 1/2 unit PRBCs for severe anemia Received IV lasix and placed on BiPAP Still sat low-mid 80s on OxyMask this AM as per RN and placed on BiPAP, currently 50% FiO2 -Continuous pulse oximetry -Continue supplemental O2 as needed, goal saturations of 88-92% -DuoNebs PRN -Will give another dose of IV Lasix 20mg - patient with history of , cautious use of diuretics -Continue PO Lasix -consult Pulm to see if recommendations for improvement--should we increase prednisone? (2) Osteomyelitis: Patient with history of PAD, DM, osteomyelitis of RLE s/p right foot irrigation and debridement performed here. Surgery well tolerated. Patient afebrile, HD stable, non-toxic in appearance MRSA from previous foot wound -Post operative management, wound care, pain control per primary team -Continue Daptomycin 400mg IV daily (3) Anemia: Chronic. Baseline Hgb 8-9 On hydroxyurea and also with chronic disease anemia hgb down to 7.3 post-op, with INR high at 5.8 No bleeding through foot dressing or anywhere else Received 1/2 unit PRBCs overnight and developed worsening resp failure requiring diuresis and BiPAP Hgb now stable at 8.3 -follow CBC -discussed w/ his [employer] who recommends holding hydroxyurea for now (4) Aortic valve stenosis: Chronic. -Fluid maintenance, avoidance of overdiuresis (5) Arteriosclerotic cardiovascular disease (ASCVD): Chronic. Stable -Continue ASA, Plavix -Continue Lisinopril (6) Benign hypertension: Blood pressure stable at present -Continue Lisinopril/HCTZ -Continue to monitor (7) Chronic diastolic CHF (congestive heart failure): Patient possibly with mild congestion and volume overload -BNP elevated at 7000 -Lasix as above again today -Continue Lasix 20mg po daily -Monitor I/Os and weights (8) CKD (chronic kidney disease) stage 3, GFR 30-59 ml/min: Baseline Cr of appx 1.3. BUN=31, Cr=1.14 during last labs 02/09/20 -Avoid nephrotoxins -Renal dosing where needed follow BMP (9) Diabetes mellitus: Chronic. Well controlled with [id number] on 02/04/20 -hold home Glipizide and Metformin -CC diet as tolerated -insulin basal and bolus ordered (10) Idiopathic interstitial pneumonia: Chronic. Patient on 4-5L NC at baseline and reports his saturations are typically in the 80's to low 90's. He has seen Drs. Hardin and Landry and Shirley Dailey in the office. -Continue supplemental O2 as above on BiPAP currently -Continue Prednisone 3mg po daily. Patient on fpc chronic steroids - low threshold for stress dosing if patient becomes hypotensive or shows signs of adrenal insufficiency (11) Peripheral arterial disease: Chronic. History of stents and angioplasty to bilateral LEs. Patient follows with Dr. Ramos. -Continue ASA 81mg po daily -Continue Plavix 75mg po daily -holding Coumadin not on statin while on Dapto (12) History of DVT (deep vein thrombosis): Chronic -hold Coumadin and give low dose po Vit K 2.5mg today x 1 for continuing to rise INR 5.8 in setting of recent surgery and on ASA/Plavix -follow INR in AM (13) Essential thrombocytosis: Chronic Plts actually low in the 90s since admission which is unusual for him COuld be due to infection in setting of taking hydroxyurea -follow CBC -HOLD Hydroxyurea (14) Rheumatoid arthritis: Chronic -Continue daily Prednisone Hospitalist Team will continue to follow Admission and Anticipated Discharge Date Admission Date: February 23, 2020 Subjective Pt had resp distress overnight requiring BiPAP and remains on BiPAP this AM despite attempts to take him off, sats still low 80s on OxyMask. Received 1/2 unit PRBCs for anemia and had to be stopped due to resp distress Denies SOB, denies CP, no N/V/D or abd pain. No pain in foot. Tele with NSR rates 60s Review of Systems Review of Systems: All systems reviewed & are unremarkable except as noted in HPI & below Physical Exam Constitutional: + thin; no acute distress (sittin pillo side of bed w/ BiPAP on) Eyes: + anicteric sclerae Neck: trachea midline, no thyromegaly Respiratory: normal respiratory effort Auscultation: + diminished lung sounds (throughout) and + wheezes (exp wheeze RUL); no crackles and no rhonchi Cardiovascular: Rate/Rhythm: regular rate and regular rhythm Heart Sounds: + murmur (2/6 CATHLEEN at RUSB) Extremities: no edema Chest (Breasts): Chest: normal inspection of chest Gastrointestinal (Abdomen): normal bowel sounds, soft, nontender, no hepatosplenomegaly Musculoskeletal: Extremities: + extremities abnormal to inspection (right leg with dressing in place), no cyanosis and no clubbing Skin: no rashes, warm and dry Neurologic: moves all extremities and awake; no focal motor deficits Psychiatric: A+Ox3, euthymic affect Lymphatic: no lymphedema Results & Data Results & Data ([facility]) Vital Signs (Past 12 Hours) Vital Signs Temp Pulse Pulse Pulse Resp BP Pulse Ox 02/24/20 08:00 36.5 C 65 54 L 18 154/69 H 92 02/24/20 07:20 66 66 18 99 02/24/20 04:40 37.3 C 49 L 17 159/80 H 95 02/24/20 04:33 37.1 C 67 18 129/76 94 02/24/20 04:23 36.9 C 68 20 117/80 95 02/24/20 03:31 65 19 97 02/24/20 03:30 68 25 H 99 02/23/20 23:46 37.4 C 61 22 127/66 100 Laboratory Results 02/24/20 02/24/20 02/24/20 Range/Units 08:47 08:47 07:33 WBC 12.02 H (4.8-10.8) K/uL RBC 3.16 L (4.7-6.1) M/uL Hgb 8.3 L (14.0-18.0) g/dL Hct 28.9 L (42-52) % MCV 91.5 (80-100) fL MCH 26.3 (25-34) pg MCHC 28.7 L (32-36) g/dL RDW Std Deviation 63.2 H (36.4-46.3) fL RDW Coeff of Dru 19.0 H (11.5-14.5) % Plt Count 99 L (130-400) K/uL Immature Gran % (Auto) % Neut % (Auto) % Lymph % (Auto) % Edwards % (Auto) % Eos % (Auto) % Baso % (Auto) % Neut # (Auto) (1.4-6.5) K/uL Lymph # (Auto) (1.2-3.4) K/uL Edwards # (Auto) (0.11-0.59) K/uL Eos # (Auto) (0-0.5) K/uL Baso # (Auto) (0-0.2) K/uL Immature Gran # (Auto) (0.00-0.02) K/uL Absolute Nucleated RBC 0.03 H (0-0) K/uL Nucleated RBC % (auto) 0.3 % Hypersegmented Neuts Platelet Estimate Decreased L (Normal) Giant Platelets Tear Drop Cells PT 55.7 H (9.0-12.0) Seconds INR 5.8 H* (0.9-1.1) VBG pH (7.36-7.41) VBG pCO2 (38-50) mmHg VBG pO2 mmHg VBG HCO3 mmol/L VBG O2 Saturation % VBG Base Excess mEq/L Barometric Pressure mm/Hg Sodium (136-145) mmol/L Potassium (3.5-5.1) mmol/L Chloride (98-107) mmol/L Carbon Dioxide (21-32) mmol/L Anion Gap (3-11) BUN (7-18) mg/dl Creatinine (0.6-1.4) mg/dl Est Cr Clr Drug Dosing ml/min Est GFR ( Amer) Est GFR (Non-Af Amer) BUN/Creatinine Ratio (10-20) Glucose (70-99) mg/dl POC Glucose 102 H (70-99) mg/dl Calcium (8.5-10.1) mg/dl Phosphorus (2.5-4.9) mg/dl Magnesium (1.8-2.4) mg/dl Total Bilirubin (0.2-1) mg/dl Direct Bilirubin (0-0.2) mg/dl AST (15-37) U/L ALT (12-78) U/L Alkaline Phosphatase (45-117) U/L NT-Pro-B Natriuret Pep (0-1800) pg/ml Total Protein (6.4-8.2) gm/dl Albumin (3.4-5.0) gm/dl Procalcitonin (0-0.5) ng/ml Blood Type Antibody Screen Crossmatch 02/24/20 02/24/20 02/24/20 Range/Units 06:43 06:43 06:43 WBC 11.17 H (4.8-10.8) K/uL RBC 3.08 L (4.7-6.1) M/uL Hgb 8.1 L (14.0-18.0) g/dL Hct 28.2 L (42-52) % MCV 91.6 (80-100) fL MCH 26.3 (25-34) pg MCHC 28.7 L (32-36) g/dL RDW Std Deviation 63.3 H (36.4-46.3) fL RDW Coeff of Dru 19.1 H (11.5-14.5) % Plt Count 92 L (130-400) K/uL Immature Gran % (Auto) % Neut % (Auto) % Lymph % (Auto) % Edwards % (Auto) % Eos % (Auto) % Baso % (Auto) % Neut # (Auto) (1.4-6.5) K/uL Lymph # (Auto) (1.2-3.4) K/uL Edwards # (Auto) (0.11-0.59) K/uL Eos # (Auto) (0-0.5) K/uL Baso # (Auto) (0-0.2) K/uL Immature Gran # (Auto) (0.00-0.02) K/uL Absolute Nucleated RBC 0.02 H (0-0) K/uL Nucleated RBC % (auto) 0.2 % Hypersegmented Neuts Platelet Estimate Decreased L (Normal) Giant Platelets Tear Drop Cells PT 52.3 H (9.0-12.0) Seconds INR 5.4 H (0.9-1.1) VBG pH (7.36-7.41) VBG pCO2 (38-50) mmHg VBG pO2 mmHg VBG HCO3 mmol/L VBG O2 Saturation % VBG Base Excess mEq/L Barometric Pressure mm/Hg Sodium 139 (136-145) mmol/L Potassium 3.8 (3.5-5.1) mmol/L Chloride 112 H (98-107) mmol/L Carbon Dioxide 21 (21-32) mmol/L Anion Gap 7.0 (3-11) BUN 34 H (7-18) mg/dl Creatinine 1.41 H (0.6-1.4) mg/dl Est Cr Clr Drug Dosing 38.8 ml/min Est GFR ( Amer) 54.1 Est GFR (Non-Af Amer) 46.7 BUN/Creatinine Ratio 23.8 H (10-20) Glucose 88 (70-99) mg/dl POC Glucose (70-99) mg/dl Calcium 8.0 L (8.5-10.1) mg/dl Phosphorus (2.5-4.9) mg/dl Magnesium (1.8-2.4) mg/dl Total Bilirubin (0.2-1) mg/dl Direct Bilirubin (0-0.2) mg/dl AST (15-37) U/L ALT (12-78) U/L Alkaline Phosphatase (45-117) U/L NT-Pro-B Natriuret Pep (0-1800) pg/ml Total Protein (6.4-8.2) gm/dl Albumin (3.4-5.0) gm/dl Procalcitonin (0-0.5) ng/ml Blood Type Antibody Screen Crossmatch 02/23/20 02/23/20 02/23/20 Range/Units Unknown 20:42 18:38 WBC (4.8-10.8) K/uL RBC (4.7-6.1) M/uL Hgb (14.0-18.0) g/dL Hct (42-52) % MCV (80-100) fL MCH (25-34) pg MCHC (32-36) g/dL RDW Std Deviation (36.4-46.3) fL RDW Coeff of Dru (11.5-14.5) % Plt Count (130-400) K/uL Immature Gran % (Auto) % Neut % (Auto) % Lymph % (Auto) % Edwards % (Auto) % Eos % (Auto) % Baso % (Auto) % Neut # (Auto) (1.4-6.5) K/uL Lymph # (Auto) (1.2-3.4) K/uL Edwards # (Auto) (0.11-0.59) K/uL Eos # (Auto) (0-0.5) K/uL Baso # (Auto) (0-0.2) K/uL Immature Gran # (Auto) (0.00-0.02) K/uL Absolute Nucleated RBC (0-0) K/uL Nucleated RBC % (auto) % Hypersegmented Neuts Platelet Estimate (Normal) Giant Platelets Tear Drop Cells PT (9.0-12.0) Seconds INR (0.9-1.1) VBG pH (7.36-7.41) VBG pCO2 (38-50) mmHg VBG pO2 mmHg VBG HCO3 mmol/L VBG O2 Saturation % VBG Base Excess mEq/L Barometric Pressure mm/Hg Sodium (136-145) mmol/L Potassium (3.5-5.1) mmol/L Chloride (98-107) mmol/L Carbon Dioxide (21-32) mmol/L Anion Gap (3-11) BUN (7-18) mg/dl Creatinine (0.6-1.4) mg/dl Est Cr Clr Drug Dosing ml/min Est GFR ( Amer) Est GFR (Non-Af Amer) BUN/Creatinine Ratio (10-20) Glucose (70-99) mg/dl POC Glucose 207 H (70-99) mg/dl Calcium (8.5-10.1) mg/dl Phosphorus (2.5-4.9) mg/dl Magnesium (1.8-2.4) mg/dl Total Bilirubin (0.2-1) mg/dl Direct Bilirubin (0-0.2) mg/dl AST (15-37) U/L ALT (12-78) U/L Alkaline Phosphatase (45-117) U/L NT-Pro-B Natriuret Pep (0-1800) pg/ml Total Protein (6.4-8.2) gm/dl Albumin (3.4-5.0) gm/dl Procalcitonin 0.09 (0-0.5) ng/ml Blood Type A Positive Antibody Screen NEGATIVE Crossmatch See Detail 02/23/20 02/23/20 02/23/20 Range/Units 17:50 17:50 17:50 WBC (4.8-10.8) K/uL RBC (4.7-6.1) M/uL Hgb (14.0-18.0) g/dL Hct (42-52) % MCV (80-100) fL MCH (25-34) pg MCHC (32-36) g/dL RDW Std Deviation (36.4-46.3) fL RDW Coeff of Dru (11.5-14.5) % Plt Count (130-400) K/uL Immature Gran % (Auto) % Neut % (Auto) % Lymph % (Auto) % Edwards % (Auto) % Eos % (Auto) % Baso % (Auto) % Neut # (Auto) (1.4-6.5) K/uL Lymph # (Auto) (1.2-3.4) K/uL Edwards # (Auto) (0.11-0.59) K/uL Eos # (Auto) (0-0.5) K/uL Baso # (Auto) (0-0.2) K/uL Immature Gran # (Auto) (0.00-0.02) K/uL Absolute Nucleated RBC (0-0) K/uL Nucleated RBC % (auto) % Hypersegmented Neuts Platelet Estimate (Normal) Giant Platelets Tear Drop Cells PT 48.7 H (9.0-12.0) Seconds INR 5.0 H (0.9-1.1) VBG pH 7.40 (7.36-7.41) VBG pCO2 36 L (38-50) mmHg VBG pO2 75 mmHg VBG HCO3 22 mmol/L VBG O2 Saturation < 60.0 % VBG Base Excess -3.0 mEq/L Barometric Pressure 735.0 mm/Hg Sodium 139 (136-145) mmol/L Potassium 3.5 (3.5-5.1) mmol/L Chloride 110 H (98-107) mmol/L Carbon Dioxide 22 (21-32) mmol/L Anion Gap 7.0 (3-11) BUN 29 H (7-18) mg/dl Creatinine 1.26 (0.6-1.4) mg/dl Est Cr Clr Drug Dosing 43.0 ml/min Est GFR ( Amer) 62.0 Est GFR (Non-Af Amer) 53.5 BUN/Creatinine Ratio 23.1 H (10-20) Glucose 180 H (70-99) mg/dl POC Glucose (70-99) mg/dl Calcium 7.7 L (8.5-10.1) mg/dl Phosphorus 3.5 (2.5-4.9) mg/dl Magnesium 1.8 (1.8-2.4) mg/dl Total Bilirubin 0.6 (0.2-1) mg/dl Direct Bilirubin 0.2 (0-0.2) mg/dl AST 13 L (15-37) U/L ALT 18 (12-78) U/L Alkaline Phosphatase 88 (45-117) U/L NT-Pro-B Natriuret Pep 7089 H (0-1800) pg/ml Total Protein 6.0 L (6.4-8.2) gm/dl Albumin 2.5 L (3.4-5.0) gm/dl Procalcitonin (0-0.5) ng/ml Blood Type Antibody Screen Crossmatch 02/23/20 02/23/20 02/23/20 Range/Units 17:50 17:06 13:20 WBC 10.40 (4.8-10.8) K/uL RBC 2.76 L (4.7-6.1) M/uL Hgb 7.3 L (14.0-18.0) g/dL Hct 25.2 L (42-52) % MCV 91.3 (80-100) fL MCH 26.4 (25-34) pg MCHC 29.0 L (32-36) g/dL RDW Std Deviation 64.6 H (36.4-46.3) fL RDW Coeff of Dru 19.7 H (11.5-14.5) % Plt Count 95 L (130-400) K/uL Immature Gran % (Auto) 0.5 % Neut % (Auto) 87.0 % Lymph % (Auto) 5.9 % Edwards % (Auto) 4.9 % Eos % (Auto) 1.3 % Baso % (Auto) 0.4 % Neut # (Auto) 9.06 H (1.4-6.5) K/uL Lymph # (Auto) 0.61 L (1.2-3.4) K/uL Edwards # (Auto) 0.51 (0.11-0.59) K/uL Eos # (Auto) 0.13 (0-0.5) K/uL Baso # (Auto) 0.04 (0-0.2) K/uL Immature Gran # (Auto) 0.05 H (0.00-0.02) K/uL Absolute Nucleated RBC (0-0) K/uL Nucleated RBC % (auto) % Hypersegmented Neuts 1+ Platelet Estimate Decreased L (Normal) Giant Platelets 1+ Tear Drop Cells 1+ PT (9.0-12.0) Seconds INR (0.9-1.1) VBG pH (7.36-7.41) VBG pCO2 (38-50) mmHg VBG pO2 mmHg VBG HCO3 mmol/L VBG O2 Saturation % VBG Base Excess mEq/L Barometric Pressure mm/Hg Sodium (136-145) mmol/L Potassium (3.5-5.1) mmol/L Chloride (98-107) mmol/L Carbon Dioxide (21-32) mmol/L Anion Gap (3-11) BUN (7-18) mg/dl Creatinine (0.6-1.4) mg/dl Est Cr Clr Drug Dosing ml/min Est GFR ( Amer) Est GFR (Non-Af Amer) BUN/Creatinine Ratio (10-20) Glucose (70-99) mg/dl POC Glucose 204 H 131 H (70-99) mg/dl Calcium (8.5-10.1) mg/dl Phosphorus (2.5-4.9) mg/dl Magnesium (1.8-2.4) mg/dl Total Bilirubin (0.2-1) mg/dl Direct Bilirubin (0-0.2) mg/dl AST (15-37) U/L ALT (12-78) U/L Alkaline Phosphatase (45-117) U/L NT-Pro-B Natriuret Pep (0-1800) pg/ml Total Protein (6.4-8.2) gm/dl Albumin (3.4-5.0) gm/dl Procalcitonin (0-0.5) ng/ml Blood Type Antibody Screen Crossmatch PG Care Time/CCT Total # of Minutes Spent Total Time Spent with Patient: Total time spent is greater than 50% in coordination of care (as documented) at patient's floor/unit and/or counseling patient: Coding Level of Care Code 30977 Subseq Hosp Care Lvl 3 Diagnoses Hypoxia R09.02 Osteomyelitis M86.9 Osteomyelitis type: unspecified type Osteomyelitis location: foot Laterality: right Anemia D64.9 Anemia type: unspecified type Aortic valve stenosis I35.0 Cardiac valve disease etiology: etiology unspecified Arteriosclerotic cardiovascular disease (ASCVD) I25.10 Benign hypertension I10 Chronic diastolic CHF (congestive heart failure) I50.32 CKD (chronic kidney disease) stage 3, GFR 30-59 ml/min N18.3 Diabetes mellitus E11.9 Diabetes mellitus type: type 2 Diabetes mellitus anesthesia director insulin use: without fpc use Diabetes mellitus complication status: without complication Idiopathic interstitial pneumonia J84.111 Peripheral arterial disease I73.9 History of DVT (deep vein thrombosis) Z86.718 Essential thrombocytosis D47.3 Rheumatoid arthritis M06.9 Rheumatoid arthritis location: unspecified site Rheumatoid factor presence: unspecified presence (1) Osteomyelitis Osteomyelitis type: unspecified type Osteomyelitis location: foot Laterality: right Qualified Code(s): M86.9 - Osteomyelitis, unspecified (2) Anemia Anemia type: unspecified type Qualified Code(s): D64.9 - Anemia, unspecified (3) Aortic valve stenosis Cardiac valve disease etiology: etiology unspecified Qualified Code(s): I35.0 - Nonrheumatic aortic (valve) stenosis (4) Diabetes mellitus Diabetes mellitus type: type 2 Diabetes mellitus anesthesia director insulin use: without anesthesia director use Diabetes mellitus complication status: without complication Qualified Code(s): E11.9 - Type 2 diabetes mellitus without complications (5) Rheumatoid arthritis Rheumatoid arthritis location: unspecified site Rheumatoid factor presence: unspecified presence Qualified Code(s): M06.9 - Rheumatoid arthritis, unspecified
[2020-02-24] MEDS ORDERED: PHYTONADIONE 2.5 MG in SODIUM CHLORIDE 0.9% 50 ML IV ONE (11:45)
[2020-02-24] MEDS ORDERED: DAPTOmycin 400 MG in SYRINGE 0 ML IV SCH (12:00)
--- NOTE | 2020-02-24 14:19 | Pulmonary Consultation ---
Date of Consultation February 24, 2020 Assessment & Plan (1) Hypoxia: Impression: 79-year-old male with chronic hypoxemic respiratory failure and oxygen requirement of anywhere between 2 and 4 L at baseline presenting now status post I&D of osteomyelitis toe. He developed hypoxemic respiratory f ailure in conjunction with receiving some packed cells. Differential diagnosis is broad and would include transfusion associated circulatory overload, transfusion associated lung injury, with exacerbation of existing ILD felt to be less likely. Given his negative procalcitonin, I think infectious etiologies are also less likely. Right to left shunting due to a PFO or ASD is certainly possible. The patient had an echocardiogram performed last year which demonstrated no right to left shunt at that time. Recommendations: 1. Recommend continue diuretics and attention to renal function and el ectrolytes. The patient does have significant heart disease and judicious diuretics and following her blood pressure is recommended. 2. We will transition the patient off BiPAP to high flow oxygen. He does not really have an indication for BiPAP at this point in time as his CO2 level was normal. If positive pressure is required, conventional CPAP at 5 to 8 cm water may be adequate if this is a hydrostatic pulmonary edema issue. 3. History of interstitial lung disease: Would continue prednisone at current doses during the stress response. He can follow-up with his outpatient pulmonary team but I would tend to agree with Dr. Alatorre that there is likely little utility in long-term steroid therapy. There is certainly no evidence to suggest the patient needs a burst of steroids at this point in time. We will continue to follow with you. Feel free to contact us with questions or concerns (2) Abnormal CT scan of lung: (3) Interstitial lung disease: History of Present Illness Attending Physician: Osman Dumont DO History of Present Illness Asked by the hospitalist to assist in evaluation management this patient with interstitial lung disease and hypoxemic respiratory failure. The patient is followed in the outpatient setting by and [facility]. He has a history of chronic hypoxemic respiratory failure as well as poorly defined interstitial lung disease and has been maintained on chronic steroids. He is refused biopsy previously. He has significant pulmonary hypertension as well. He also has known diastolic heart failure. He was recently admitted to the facility with drainage of his foot. He was diagnosed with osteomyelitis treated with IV antibiotics. He was admitted for scheduled I&D of lateral aspiration of the fifth MTP joint. Surgery was uneventful. He was noted to have hypoxemic respiratory failure with oxygen saturations in the 80s despite being on nasal cannula. This prompted a medicine consultation. He was placed on BiPAP. It appears that the hypoxemia was in conjunction with him receiving some blood p roducts. He received 1 dose of Lasix. He currently appears to be breathing comfortably without chest pain fevers chills or night sweats. Allergies Allergy/AdvReac Type Severity Reaction Status Date / Time Sulfa (Sulfonamide Allergy Intermediate HIVES Verified 02/23/20 10:25 Antibiotics) atorvastatin AdvReac Mild LEG CRAMPS Verified 02/23/20 10:25 cilostazol AdvReac Mild DIARRHEA Verified 02/23/20 10:25 Home Medications Home Medications Medication Instructions Recorded Confirmed Type potassium gluconate 595 mg PO PM 08/06/19 02/23/20 History hydroxyurea 500 mg capsule 500 mg PO BID 08/07/19 02/23/20 History blood sugar diagnostic #100 ea 10/21/19 02/22/20 Rx aspirin [Aspir-81] 81 mg PO HS 11/01/19 02/23/20 History clopidogrel 75 mg PO PM 11/01/19 02/23/20 History glipizide [Glucotrol XL] 5 mg PO BID 11/01/19 02/23/20 History ibuprofen 200 mg PO Q6H PRN 11/01/19 02/23/20 History lisinopril-hydrochlorothiazide 1 tab PO QAM 11/01/19 02/23/20 History warfarin 7.5 mg PO Q OTHER DAY 11/01/19 02/23/20 History metformin 1,000 mg PO BID 11/11/19 02/23/20 History mupirocin 1 appln TOP BID PRN 11/11/19 02/23/20 History furosemide 20 mg tablet 20 mg PO QAM #90 tab 12/22/19 02/23/20 Rx prednisone 1 mg tablet 3 mg PO QPM 12/27/19 02/23/20 History oxycodone 5 mg PO Q6H PRN #10 cap 01/14/20 02/23/20 Rx daptomycin 400 mg IV DAILY 38 Days #38 ea 02/08/20 02/23/20 Rx warfarin 5 mg PO Q OTHER DAY 02/17/20 02/23/20 History Patient History Family History Family/Other Coronary heart disease Cancer Family/Other Heart disease Cancer Mother Family history of diabetes mellitus Brother Family history of diabetes mellitus Brother Family history of diabetes mellitus Sister Family history of diabetes mellitus Sister Family history of diabetes mellitus Other No family history of adverse response to anesthesia Social History Preferred Language: Croatian Communication Ability: Effective Cytogeneticist Required: No Beliefs That Will Affect Care: None marital status: / Current Living Situation: Alone current occupational status: retired Other Information That Helps Us Care for You: No Feels Safe at Home: Yes Safety Concerns: Feels Safe At This Time Smoking Status: Former smoker Cigarettes Per Day: 1 PPD smoked for 15 years quit in 1974 ; Do You Dip or Chew Tobacco: No ; Smoking End Date: 45 YRS AGO ; Second Hand Exposure: Yes ; Tobacco Cessation Education Requested by Patient: No Hx Alcohol Use: No Hx Substance Use: No during the past year weight has: remained stable Review of Systems Review of Systems: Unobtainable due to the patient being on full face BiPAP. Please refer to documented notes in the EMR Results & Data Results & Data ([place]) Vital Signs (Past 12 Hours) Vital Signs Temp Pulse Pulse Pulse Pulse Resp BP 02/24/20 11:39 36.9 C 76 18 135/69 02/24/20 11:20 64 64 18 02/24/20 08:00 36.5 C 65 54 L 18 154/69 H 02/24/20 07:20 66 66 18 02/24/20 04:40 37.3 C 49 L 17 159/80 H 02/24/20 04:33 37.1 C 67 18 129/76 02/24/20 04:23 36.9 C 68 20 117/80 02/24/20 03:31 65 19 02/24/20 03:30 68 25 H Pulse Ox 02/24/20 11:39 96 02/24/20 11:20 96 02/24/20 08:00 92 02/24/20 07:20 99 02/24/20 04:40 95 02/24/20 04:33 94 02/24/20 04:23 95 02/24/20 03:31 97 02/24/20 03:30 99 Laboratory Results 02/24/20 08:47 02/24/20 06:43 02/23/20 17:50 VBG pH 7.40 VBG pCO2 36 L VBG pO2 75 VBG HCO3 22 VBG O2 Saturation < 60.0 VBG Base Excess -3.0 Procalcitonin was negative. BNP markedly elevated over [address] of the chest was reviewed. The patient has developed new small bilateral pleural effusions with atelectasis of the bilateral lower lobes and some patchy airspace opacities throughout both lungs. This was new compared to prior scan from August of this year PG Care Time/CCT Total # of Minutes Spent Total Time Spent with Patient: Total time spent is greater than 50% in coordination of care (as documented) at patient's floor/unit and/or counseling patient: Coding Level of Care Code 84554 Initial Inpt Care Lvl 3 Diagnoses Hypoxia R09.[address] scan of lung R91.8 Interstitial lung disease J84.9
[2020-02-24] MEDS ORDERED: WARFARIN SOD 5 MG TAB PO SCH (16:00)
[2020-02-24] MEDS ORDERED: FUROSEMIDE 40 MG in SYRINGE 0 ML IV ONE (18:15)
[2020-02-24] MEDS: predniSONE 1 MG TAB PO SCH (21:24)
[2020-02-24] MEDS: SENNA 8.6 MG TAB PO SCH (21:24)
[2020-02-24] MEDS: CLOPIDOGREL BISULFATE 75 MG TAB PO SCH (21:24)
[2020-02-24] MEDS: ASPIRIN 81 MG ECTAB PO SCH (21:24)
[2020-02-24] MEDS ORDERED: VANCOMYCIN HCL 1,250 MG in SODIUM CHLORIDE 0.9% 250 ML IV SCH (22:00)
[2020-02-25] MEDS: ALBUT/IPRATROP 3MG/0.5MG NEB 3 ML VIAL NEB SCH ×6 (02:51→22:39)
[2020-02-25] MEDS: ACETAMINOPHEN 500 MG TAB PO SCH ×3 (06:48→20:42)
[2020-02-25 07:42] LABS: Mean Corpuscular Hgb Conc 29.4 g/dL (32-36)
[2020-02-25 07:50] LABS: INR 1.4 (0.9-1.1); Prothrombin Time 14.9 Seconds (9.0-12.0)
[2020-02-25 07:54] LABS: Hematocrit (blood only) 29.3 % (42-52); Hemoglobin 8.6 g/dL (14.0-18.0); Mean Corpuscular Hemoglobin 26.6 pg (25-34); Mean Corpuscular Volume 90.7 fL (80-100); RDW Coefficient of Variation 19.6 % (11.5-14.5); Red Blood Count 3.23 M/uL (4.7-6.1); White Blood Count 11.62 K/uL (4.8-10.8)
[2020-02-25 08:08] LABS: Basophils # (auto) 0.03 K/uL (0-0.2); Basophils % (auto) 0.3 %; Dohle Bodies 1+; Eosinophils # (auto) 0.14 K/uL (0-0.5); Eosinophils % (auto) 1.2 %; Immature Granulocytes # (auto) 0.05 K/uL (0.00-0.02); Immature Granulocytes % (auto) 0.4 %; Lymphocytes % (auto) 4.3 %; Monocytes # (auto) 0.59 K/uL (0.11-0.59); Monocytes % (auto) 5.1 %; Neutrophils # (auto) 10.31 K/uL (1.4-6.5); Neutrophils % (auto) 88.7 %; Platelet Count 103 K/uL (130-400); Platelet Estimate Decreased (Normal)
[2020-02-25 08:11] LABS: BUN Creatinine Ratio 24.1 (10-20); Calcium 8.1 mg/dl (8.5-10.1); Creatinine Clr Calc Pharmacy 44.4 ml/min; Est GFR (African American) 65.8; Est GFR (Non-African American) 56.8; Magnesium 1.8 mg/dl (1.8-2.4); Potassium 3.1 mmol/L (3.5-5.1)
[2020-02-25] MEDS: DAPTOmycin 400 MG in SYRINGE 0 ML IV SCH (08:42)
[2020-02-25] MEDS: FUROSEMIDE 20 MG in SYRINGE 0 ML IV SCH (08:42)
[2020-02-25] MEDS: INSULIN ASPART 100 UNITS/ML 3 ML PEN SC SCH ×4 (08:43→21:02)
[2020-02-25] MEDS: MULTIVITAMIN TAB PO SCH (08:43)
[2020-02-25] MEDS: DOCUSATE SODIUM 100 MG CAP PO SCH ×2 (08:43→20:45)
--- NOTE | 2020-02-25 11:57 | Pulmonology Progress Note ---
Date of Service February 25, 2020 Assessment & Plan (1) Hypoxia: Impression: 79-year-old male with chronic hypoxemic respiratory failure and oxygen requirement of 4 L at baseline presenting now status post I&D of osteomyelitis toe. He developed hypoxemic respiratory failure in conjunction with receiving some packed cells. Differential diagnosis is broad and would include transfusion associated circulatory overload, transfusion associated lung injury, with exacerbation of existing ILD felt to be less likely. Given his negative procalcitonin, I think infectious etiologies are also less likely. Right to left shunting due to a PFO or ASD is certainly possible. The patient had an echocardiogram performed last year which demonstrated no right to left shunt at that time. Recommendations: 1. Patient has demonstrated clinical improvement with diuresis and his serum creatinine has improved. Would recommend continue diuretics. Follow-up chest x-ray in 24 to 48 hours based on clinical response would be reasonable. He can continue to use noninvasive positive pressure ventilation as needed. 2. If PAP is required, would recommend CPAP rather than BiPAP. At a pressure setting of 5-10 cmH2O should be adequate. 3. History of interstitial lung disease: Would continue prednisone at current doses during the stress response. He can follow-up with his outpatient pulmonary team but I would tend to agree with Dr. Alatorre that there is likely little utility in long-term steroid therapy. There is certainly no evidence to suggest the patient needs a burst of steroids at this point in time. 4. Recommended aggressive pulmonary toilet. The patient was instructed in the use of the incentive spirometer and advised to use it every hour. I also think he would do much better if we can get him out of a supine position. He states he cannot get out of bed due to his foot however after discussion with his nurse, he is just nonweightbearing on the foot and there is no contraindication to getting up to the chair. Would recommend getting him up to the chair as much as possible and only having the patient supine when he sleeping. We will continue to follow with you. Feel free to contact us with questions or concerns (2) Abnormal CT scan of lung: (3) Interstitial lung disease: Admission and Anticipated Discharge Date Admission Date: February 23, 2020 Subjective Patient seen and examined. EMR reviewed. He is been weaned off of noninvasive positive pressure ventilation to high flow nasal cannula. He states his breathing is better. He is not coughing or expectorating any phlegm. No chest pain or palpitations. No fevers chills or night sweats. He is lying in bed supine. He can do about 250 on his incentive spirometer. Review of Systems Review of Systems: All systems reviewed & are unremarkable except as noted in HPI & below Results & Data Results & Data ([facility]) Vital Signs (Past 12 Hours) Vital Signs Temp Pulse Pulse Resp BP Pulse Ox 02/25/20 07:45 36.6 C 72 20 97/59 L 92 02/25/20 07:26 88 20 90 02/25/20 03:54 36.6 C 58 L 22 102/60 93 02/25/20 02:52 56 L 22 94 02/25/20 02:51 56 L 21 94 02/24/20 23:53 57 L 20 90 Patient is diuresed about 2 L Laboratory Results 02/25/20 06:56 02/25/20 06:56 Diagnostic Findings No new imaging PG Care Time/CCT Total # of Minutes Spent Total Time Spent with Patient: Total time spent is greater than 50% in coordination of care (as documented) at patient's floor/unit and/or counseling patient: Coding Level of Care Code 28272 Subseq Hosp Care Lvl 2 Diagnoses Hypoxia R09.[address] scan of lung R91.8 Interstitial lung disease J84.9
--- NOTE | 2020-02-25 12:30 | Orthopedic Progress Note ---
Date of Service February 25, 2020 Assessment & Plan (1) Ulcer of right foot: POD #2 s/p 1. Right foot irrigation and debridement of fifth metatarsal head ulcer measuring 3.0 cm x 2.75 cm full thickness. 2. Right foot irrigation and debridement of lateral distal ulcer including skin, fascia, dermis and joint capsule of fifth metatarsal head measuring 3 cm x 2.75 cm. 3. Application of TheraSkin split thickness skin allograft to fifth metatarsal head region, right foot Cultures growing Staph. May be similar to previous cultures. Will await sensitivities. NWB RLE at all times. Dressing to remain in place at all times for the next week. If it becomes saturated, keep adaptic over the graft material and change the gauze and cast padding. Appreciate medicine input. D/C planning--uncertain. Patient requesting [facility]. Will await culture/sensitivity results, bed availability and optimizing patient's medical status. Admission and Anticipated Discharge Date Admission Date: February 23, 2020 Subjective States he is doing pretty well today. No right foot complaints. States he would like to go to [facility] upon d/c. Physical Exam Constitutional: well developed and well nourished; no acute distress ENMT: external ear and nose normal, oropharynx normal Neck: trachea midline, no thyromegaly Respiratory: normal respiratory effort, lungs clear to auscultation (Patient using portable oxygen tank) Cardiovascular: Rate/Rhythm: regular rate and regular rhythm Gastrointestinal (Abdomen): normal bowel sounds, soft, nontender, no hepatosplenomegaly Musculoskeletal: Right foot: Dressing is C/D/I. The gauze had slid back slightly so it was adjusted to be over the adaptic and the wound with the skin graft. No erythema noted. Neurologic: normal touch/pain/proprioception Psychiatric: A+Ox3, euthymic affect Lymphatic: no cervical or axillary lymphadenopathy Results & Data ([facility]) Vital Signs (Past 12 Hours) Vital Signs Temp Pulse Pulse Resp BP Pulse Ox 02/25/20 11:47 36.9 C 87 22 90/56 L 89 L 02/25/20 07:45 36.6 C 72 20 97/59 L 92 02/25/20 07:26 88 20 90 02/25/20 03:54 36.6 C 58 L 22 102/60 93 02/25/20 02:52 56 L 22 94 02/25/20 02:51 56 L 21 94 Laboratory Results [facility] [address] [place] [address] / Director: Kenan Tao M.D. Clinical Laboratory Report Name: QUIRINO HOPE Acct: [id number] Status: ADM [place] : 1940 [facility] [place] Date: 02/23/20 Age: 79 Sex: M Dis Date: Loc: Telemetry [address] [place] [address]/Bed: S232-1 Spec: [id number] Collected: 02/23/20-1300 Received: 02/23/20-[address]: Osman DumontD.O. Source: Foot OV Order: Ordered: Aer/Faye Cult/Sm Comments: Comment 1.Lateral Ulceration 5th Metatarsal Head Procedure Result Verified Site Gram Stain Final 02/24/200751 Gram Stain Result No WBCs Seen, No Organisms Seen Aero/Faye Cult Preliminary 02/25/20-0822 Organism 1 Staphylococcus species Quantity Few Sens Sensitivities to Follow +MixWound Plus Low Counts of Probable Skin Elvira
[2020-02-25] MEDS ORDERED: WARFARIN SOD 7.5 MG TAB PO SCH (16:00)
--- NOTE | 2020-02-25 16:51 | Hospitalist Progress Note ---
Date of Service February 25, 2020 Assessment & Plan (1) Acute and chronic respiratory failure with hypoxia: 79yo C male with history of idiopathic interstitial PNA on long-term steroids and home O2 of 4-5L, COPD, diastolic CHF with post-operative hypoxia. Patient had debridement of RLE toe on 02/22. Saturations in the 80's despite being on NC + Facemask. Patient is asymptomatic, hemodynamically stable. CXR read as progressive bibasilar parenchymal infiltrates verses developing pulmonary edematous change - overall appears similar to prior images - patient with history of IIP. Had worsening resp status overnight after receiving 1/2 unit PRBCs for severe anemia Received IV lasix and placed on BiPAP Improved O2 sats compared to yesterday, currently 40% FiO2 Appreciate pulmonology recommendations -Continuous pulse oximetry -Continue supplemental O2 as needed, goal saturations of 88-92% -DuoNebs PRN -Continue lasix IV 20mg as below -Appreciate pulmonology recommendations (2) Osteomyelitis: Patient with history of PAD, DM, osteomyelitis of RLE s/p right foot irrigation and debridement performed here. Surgery well tolerated. Patient afebrile, HD stable, non-toxic in appearance MRSA from previous foot wound -Post operative management, wound care, pain control per primary team -Continue Daptomycin 400mg IV daily (3) Anemia: Chronic. Baseline Hgb 8-9 On hydroxyurea and also with chronic disease anemia hgb down to 7.3 post-op, with INR high at 5.8 No bleeding through foot dressing or anywhere else Received 1/2 unit PRBCs overnight and developed worsening resp failure requiring diuresis and BiPAP Hgb now stable at 8.6 -follow CBC -prior provider discussed w/ his [employer] Supervisor who recommends holding hydroxyurea for now (4) Aortic valve stenosis: Chronic. -Fluid maintenance, avoidance of overdiuresis (5) Arteriosclerotic cardiovascular disease (ASCVD): Chronic. Stable -Continue ASA, Plavix -Lisinopril on hold due to hypotension (6) Benign hypertension: Blood pressure stable at present -Holding Lisinopril/HCTZ due to hypotension -Continue to monitor (7) Chronic diastolic CHF (congestive heart failure): Patient possibly with mild congestion and volume overload -BNP elevated at 7000 -Continue IV Lasix 20mg daily -Monitor I/Os and weights (8) CKD (chronic kidney disease) stage 3, GFR 30-59 ml/min: Baseline Cr of appx 1.3. BUN=31, Cr=1.14 during last labs 02/09/20 -Avoid nephrotoxins -Renal dosing where needed follow BMP (9) Diabetes mellitus: Chronic. Well controlled with [id number] on 02/04/20 -hold home Glipizide and Metformin -CC diet as tolerated -insulin basal and bolus ordered (10) Idiopathic interstitial pneumonia: Chronic. Patient on 4-5L NC at baseline and reports his saturations are typically in the 80's to low 90's. He has seen Drs. Hardin and Landry and Shirley Dailey in the office. -Continue supplemental O2 as above on BiPAP currently -Continue Prednisone 3mg po daily. Patient on residential chronic steroids - low threshold for stress dosing if patient becomes hypotensive or shows signs of adrenal insufficiency. (11) Peripheral arterial disease: Chronic. History of stents and angioplasty to bilateral LEs. Patient follows with Dr. Ramos. -Continue ASA 81mg po daily -Continue Plavix 75mg po daily -warfarin as below holding statin while on Dapto (12) History of DVT (deep vein thrombosis): Chronic -Vit K 2.5mg 02/23 to reverse INR 5.8. INR now 1.4. Will give 5mg warfarin today and recheck INR tomorrow -follow INR in AM (13) Essential thrombocytosis: Chronic Plts actually low in the 90s since admission which is unusual for him Could be due to infection in setting of taking hydroxyurea -follow CBC -HOLD Hydroxyurea (14) Rheumatoid arthritis: Chronic -Continue daily Prednisone Hospitalist Team will continue to follow Admission and Anticipated Discharge Date Admission Date: February 23, 2020 Subjective Patient reports he feels improved. He denies feeling short of breath, no chest pain, cough. However he is yet to get up and move around significantly. No pain in his right foot. He reports sometimes he is able to turn his O2 at home to 3L but usually uses 4-5L. Review of Systems Review of Systems: All systems reviewed & are unremarkable except as noted in HPI & below Physical Exam Constitutional: well developed and + frail appearing; + not well nourished and no acute distress Eyes: + anicteric sclerae; normal pupil size Neck: normal visual inspection and trachea midline Respiratory: + retractions, + uses accessory muscles and able to speak in complete sentences; no cough, normal respiratory pattern and expiratory phase not prolonged Auscultation: + diminished lung sounds (throughout); no crackles, no rhonchi and no wheezes Cardiovascular: Rate/Rhythm: regular rate and regular rhythm Heart Sounds: + murmur (2/6 CATHLEEN at RUSB) Extremities: no edema Gastrointestinal (Abdomen): Inspection/Auscultation: abdomen normal to inspection; abdomen not distended Percussion/Palpation: abdomen soft; abdomen nontender, no guarding and abdomen not rigid Skin: no rashes, warm and dry Neurologic: moves all extremities and awake; no focal motor deficits Psychiatric: Orientation: alert and oriented x 3 Lymphatic: no cervical or axillary lymphadenopathy Results & Data Results & Data ([facility]) Vital Signs (Past 12 Hours) Vital Signs Temp Pulse Pulse Pulse Resp BP Pulse Ox 02/25/20 15:37 36.8 C 67 18 99/60 L 96 02/25/20 15:26 67 20 93 02/25/20 15:25 67 20 93 02/25/20 14:48 68 02/25/20 14:01 98 02/25/20 11:47 36.9 C 87 22 90/56 L 89 L 02/25/20 07:45 36.6 C 72 20 97/59 L 92 02/25/20 07:26 88 20 90 PG Care Time/CCT Total # of Minutes Spent Total Time Spent with Patient: Total time spent is greater than 50% in coordination of care (as documented) at patient's floor/unit and/or counseling patient: Coding Level of Care Code 79583 Subseq Hosp Care Lvl 3 Diagnoses Acute and chronic respiratory failure with hypoxia J96.21 Osteomyelitis M86.9 Osteomyelitis type: unspecified type Osteomyelitis location: foot Laterality: right Anemia D64.9 Anemia type: unspecified type Aortic valve stenosis I35.0 Cardiac valve disease etiology: etiology unspecified Arteriosclerotic cardiovascular disease (ASCVD) I25.10 Benign hypertension I10 Chronic diastolic CHF (congestive heart failure) I50.32 CKD (chronic kidney disease) stage 3, GFR 30-59 ml/min N18.3 Diabetes mellitus E11.9 Diabetes mellitus type: type 2 Diabetes mellitus residential insulin use: without residential use Diabetes mellitus complication status: without complication Idiopathic interstitial pneumonia J84.111 Peripheral arterial disease I73.9 History of DVT (deep vein thrombosis) Z86.718 Essential thrombocytosis D47.3 Rheumatoid arthritis M06.9 Rheumatoid arthritis location: unspecified site Rheumatoid factor presence: unspecified presence (1) Osteomyelitis Osteomyelitis type: unspecified type Osteomyelitis location: foot Laterality: right Qualified Code(s): M86.9 - Osteomyelitis, unspecified (2) Anemia Anemia type: unspecified type Qualified Code(s): D64.9 - Anemia, unspecified (3) Aortic valve stenosis Cardiac valve disease etiology: etiology unspecified Qualified Code(s): I35.0 - Nonrheumatic aortic (valve) stenosis (4) Diabetes mellitus Diabetes mellitus type: type 2 Diabetes mellitus residential insulin use: without residential use Diabetes mellitus complication status: without complication Qualified Code(s): E11.9 - Type 2 diabetes mellitus without complications (5) Rheumatoid arthritis Rheumatoid arthritis location: unspecified site Rheumatoid factor presence: unspecified presence Qualified Code(s): M06.9 - Rheumatoid arthritis, unspecified
[2020-02-25] MEDS ORDERED: POTASSIUM CHLORIDE 20 MEQ TABCR PO STA ×2 (17:55)
[2020-02-25] MEDS ORDERED: WARFARIN SOD 5 MG TAB PO ONE (17:59)
[2020-02-25] MEDS: predniSONE 1 MG TAB PO SCH (20:43)
[2020-02-25] MEDS: ASPIRIN 81 MG ECTAB PO SCH (20:44)
[2020-02-25] MEDS: CLOPIDOGREL BISULFATE 75 MG TAB PO SCH (20:44)
[2020-02-25] MEDS: SENNA 8.6 MG TAB PO SCH (20:45)
[2020-02-26] MEDS: ALBUT/IPRATROP 3MG/0.5MG NEB 3 ML VIAL NEB SCH ×6 (03:09→23:31)
[2020-02-26 05:40] LABS: INR 1.3 (0.9-1.1); Prothrombin Time 13.2 Seconds (9.0-12.0)
[2020-02-26 05:46] LABS: Hematocrit (blood only) 28.7 % (42-52); Hemoglobin 8.6 g/dL (14.0-18.0); Mean Corpuscular Hemoglobin 27.1 pg (25-34); Mean Corpuscular Volume 90.5 fL (80-100); RDW Coefficient of Variation 19.2 % (11.5-14.5); RDW Standard Deviation 63.3 fL (36.4-46.3); Red Blood Count 3.17 M/uL (4.7-6.1); White Blood Count 13.67 K/uL (4.8-10.8)
[2020-02-26] MEDS: ACETAMINOPHEN 500 MG TAB PO SCH ×3 (05:51→21:22)
[2020-02-26 06:03] LABS: Basophils # (auto) 0.03 K/uL (0-0.2); Basophils % (auto) 0.2 %; Eosinophils % (auto) 0.7 %; Immature Granulocytes # (auto) 0.04 K/uL (0.00-0.02); Immature Granulocytes % (auto) 0.3 %; Lymphocytes # (auto) 0.58 K/uL (1.2-3.4); Lymphocytes % (auto) 4.2 %; Monocytes # (auto) 0.69 K/uL (0.11-0.59); Neutrophils # (auto) 12.23 K/uL (1.4-6.5); Neutrophils % (auto) 89.6 %; Platelet Count 105 K/uL (130-400); Platelet Estimate Decreased (Normal); RBC Morphology Unremarkable
[2020-02-26 06:41] LABS: Albumin Globulin Ratio 0.6 (0.9-2); Albumin Level 2.3 gm/dl (3.4-5.0); BUN Creatinine Ratio 23.9 (10-20); Bilirubin,Total 0.6 mg/dl (0.2-1); Calcium 7.8 mg/dl (8.5-10.1); Creatinine Clr Calc Pharmacy 41.9 ml/min; Est GFR (African American) 59.7; Est GFR (Non-African American) 51.5; Globulin 3.6 gm/dl (2.5-4.0); Potassium 3.9 mmol/L (3.5-5.1); Total Protein 5.9 gm/dl (6.4-8.2)
--- NOTE | 2020-02-26 08:04 | Orthopedic Progress Note ---
Date of Service February 26, 2020 Assessment & Plan (1) Ulcer of right foot: POD #3 s/p Right foot irrigation and debridement of fifth metatarsal head ulcer, Right foot irrigation and debridement of lateral distal ulcer including skin, fascia, dermis and joint capsule of fifth metatarsal head Application of TheraSkin split thickness skin allograft to fifth metatarsal head region, right foot Cultures growing Staph. sensitive to Dapto NWB RLE at all times. Dressing to remain in place at all times for the next week. If it becomes saturated, keep adaptic over the graft material and change the gauze and cast padding. Appreciate medicine input. D/C planning--uncertain. Patient requesting [facility] [place]. Will await culture/sensitivity results, bed availability and optimizing patient's medical status. Admission and Anticipated Discharge Date Admission Date: February 23, 2020 Supervising Physician Co-Signing Physician Notes Patient seen and examined. Agree with SONNY Rodríguez's note above. Dressings clean, dry, intact. Wound looks good. No spreading erythema. Reports no pain. Pulmonology following for interstitial lung disease. Subjective POD #3 I&D Right foot Review of Systems Constitutional: no fever and no chills Cardiovascular: no chest pain Gastrointestinal: no abdominal pain, no nausea and no vomiting Physical Exam Physical Exam: Vital Signs Temp 36.6 C 02/26/20 06:53 Pulse 63 02/26/20 07:20 Resp 19 02/26/20 07:20 BP 106/54 L 02/26/20 06:53 Pulse Ox 89 L 02/26/20 07:20 Intake & Output 02/25/201802/26/20 18:59 06:59 18:59 Intake Total 320 / 700 380 / 700 Output Total 200 / 825 625 / 825 Balance 120 / -125 -245 / -125 Weight 65.4 kg Intake: Oral 320 / 700 380 / 700 Output: Urine 200 / 825 625 / 825 Other: Other Intake Carly rce sips Constitutional: WD/WN, vitals as above no acute distress Musculoskeletal: Right Foot: Right foot: Dressing is C/D/I. The gauze had slid back slightly so it was adjusted to be over the adaptic and the wound with the skin graft. No erythema noted. Results & Data ([facility]) Vital Signs (Past 12 Hours) Vital Signs Temp Pulse Pulse Resp BP Pulse Ox 07/18/20 07:20 63 19 89 L 02/26/20 06:53 36.6 C 65 17 106/54 L 91 02/26/20 03:39 37.1 C 64 16 119/60 89 L 02/26/20 03:12 65 17 98 02/26/20 03:11 65 17 98 02/26/20 00:30 37.0 C 72 21 112/49 L 91 02/25/20 23:30 83 02/25/20 22:41 76 16 94 02/25/20 22:40 75 16 92 02/25/20 21:44 83 18 91 02/25/20 20:22 67 18 94 02/25/20 20:21 67 18 94
[2020-02-26] MEDS: INSULIN ASPART 100 UNITS/ML 3 ML PEN SC SCH ×4 (08:44→21:18)
[2020-02-26] MEDS: DAPTOmycin 400 MG in SYRINGE 0 ML IV SCH (08:49)
[2020-02-26] MEDS: MULTIVITAMIN TAB PO SCH (08:50)
[2020-02-26] MEDS: DOCUSATE SODIUM 100 MG CAP PO SCH ×2 (09:30→21:22)
[2020-02-26] MEDS: FUROSEMIDE 20 MG in SYRINGE 0 ML IV SCH (09:30)
--- NOTE | 2020-02-26 09:42 | Pulmonology Progress Note ---
Date of Service February 26, 2020 Assessment & Plan (1) Hypoxia: Impression: 79-year-old male with chronic hypoxemic respiratory failure and oxygen requirement of 4 L at baseline presenting now status post I&D of osteomyelitis toe. He developed hypoxemic respiratory failure in conjunction with receiving some packed cells. Differential diagnosis is broad and would include transfusion associated circulatory overload, transfusion associated lung injury, with exacerbation of existing ILD felt to be less likely. Given his negative procalcitonin, I think infectious etiologies are also less likely. Right to left shunting due to a PFO or ASD is certainly possible. The patient had an echocardiogram performed last year which demonstrated no right to left shunt at that time. Recommendations: 1. Patient has demonstrated clinical improvement with diuresis and his serum creatinine has stabilized. Would recommend continue diuretics. We will repeat chest x-ray in a.m. He can continue to use noninvasive positive pressure ventilation as needed. 2. If PAP is required, would recommend CPAP rather than BiPAP. At a pressure setting of 5-10 cmH2O should be adequate. 3. History of interstitial lung disease: Would continue prednisone at current doses during the stress response. He can follow-up with his outpatient pulmonary team but I would tend to agree with Dr. Alatorre that there is likely little utility in long-term steroid therapy. There is certainly no evidence to suggest the patient needs a burst of steroids at this point in time. 4. Recommended aggressive pulmonary toilet. The patient was instructed in the use of the incentive spirometer and advised to use it every hour. I also think he would do much better if we can get him out of a supine position. He states he cannot get out of bed due to his foot however after discussion with his nurse, he is just nonweightbearing on the foot and there is no contraindication to getting up to the chair. Would recommend getting him up to the chair as much as possible and only having the patient supine when he sleeping. We will continue to follow with you. Feel free to contact us with questions or concerns (2) Abnormal CT scan of lung: (3) Interstitial lung disease: Admission and Anticipated Discharge Date Admission Date: February 23, 2020 Subjective Patient seen and examined. He denies any respiratory difficulties currently and states that he is breathing okay. He has been able to decrease his FiO2 down to 0.7 on the high flow system at 40 L/min. He is not coughing or expectorating phlegm. Review of Systems Review of Systems: All systems reviewed & are unremarkable except as noted in HPI & below Physical Exam Constitutional: WD/WN, vitals as above Neck: trachea midline, no thyromegaly Respiratory: normal respiratory effort, lungs clear to auscultation Cardiovascular: RRR, no murmur, no edema Gastrointestinal (Abdomen): normal bowel sounds, soft, nontender, no hepatosplenomegaly Musculoskeletal: Extremities: extremities normal to inspection Skin: no rashes, warm and dry Neurologic: Nonfocal exam Lymphatic: no cervical lymphadenopathy Results & Data Results & Data ([facility]) Vital Signs (Past 12 Hours) Vital Signs Temp Pulse Pulse Resp BP Pulse Ox 02/26/20 07:20 63 19 89 L 02/26/20 06:53 36.6 C 65 17 106/54 L 91 02/26/20 03:39 37.1 C 64 16 119/60 89 L 02/26/20 03:12 65 17 98 02/26/20 03:11 65 17 98 02/26/20 00:30 37.0 C 72 21 112/49 L 91 02/25/20 23:30 83 02/25/20 22:41 76 16 94 02/25/20 22:40 75 16 92 02/25/20 21:44 83 18 91 Laboratory Results 02/26/20 04:45 02/26/20 04:45 Diagnostic Findings No new imaging PG Care Time/CCT Total # of Minutes Spent Total Time Spent with Patient: Total time spent is greater than 50% in coordination of care (as documented) at patient's floor/unit and/or counseling patient: Coding Level of Care Code 28660 Subseq Hosp Care Lvl 2 Diagnoses Hypoxia R09.[address] scan of lung R91.8 Interstitial lung disease J84.9
--- NOTE | 2020-02-26 13:57 | Hospitalist Progress Note ---
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 Patient had debridement of RLE toe on 02/22. Saturations in the 80's despite being on NC + Facemask. Patient is asymptomatic, hemodynamically stable. CXR read as progressive bibasilar parenchymal infiltrates verses developing pulmonary edematous change - overall appears similar to prior images - patient with history of IIP. Had worsening resp status overnight after receiving 1/2 unit PRBCs for severe anemia Received IV lasix and placed on BiPAP and then transition to high flow nasal cannula Slightly improved, weaning FiO2 down to 70% today on high flow nasal cannula Appreciate pulmonology recommendations-continued diuresis, CPAP or high flow nasal cannula and wean down to home O2 of 4-6 L nasal cannula -Continuous pulse oximetry -Continue supplemental O2 as needed, goal saturations of 88-92% -DuoNebs PRN -Continue lasix IV 20mg as below -Pulmonology does not recommend increase in the dose of steroids at this time (2) Osteomyelitis: Patient with history of PAD, DM, osteomyelitis of RLE s/p right foot irrigation and debridement performed here. Surgery well tolerated. Patient afebrile, HD stable, non-toxic in appearance MRSA from previous foot wound Now with MSSA from current foot wound resistant to erythromycin and Bactrim -Post operative management, wound care, pain control per primary team -Continue Daptomycin 400mg IV daily given previous MRSA-plan for at least andrew ral more weeks (3) Anemia: Chronic. Baseline Hgb 8-9 On hydroxyurea and also with chronic disease anemia hgb down to 7.3 post-op, with INR high at 5.8 No bleeding through foot dressing or anywhere else Received 1/2 unit PRBCs overnight and developed worsening resp failure requiring diuresis and BiPAP Hgb now stable at 8.6 -follow CBC -prior provider discussed w/ his Job Service Specialist who recommends holding hydroxyurea for now (4) Aortic valve stenosis: Chronic. -Fluid maintenance, avoidance of overdiuresis (5) Arteriosclerotic cardiovascular disease (ASCVD): Chronic. Stable -Continue ASA, Plavix -Lisinopril on hold due to hypotension-continue to hold (6) Benign hypertension: Blood pressure stable at present -Holding Lisinopril/HCTZ due to hypotension -Continue to monitor (7) Chronic diastolic CHF (congestive heart failure): With acute on chronic diastolic CHF Patient possibly with mild congestion and volume overload -BNP elevated at 7000 -Continue IV Lasix 20mg daily -Monitor I/Os and weights (8) CKD (chronic kidney disease) stage 3, GFR 30-59 ml/min: Baseline Cr of appx 1.3. Creatinine currently 1.3 -Avoid nephrotoxins -Renal dosing where needed follow BMP (9) Diabetes mellitus: Chronic. Well controlled with [id number] on 02/04/20 -hold home Glipizide and Metformin -CC diet as tolerated -insulin basal and bolus ordered (10) Idiopathic interstitial pneumonia: Chronic. Patient on 4-5L NC at baseline and reports his saturations are typically in the 80's to low 90's. He has seen Drs. Mcgraw and Shirley Dailey in the office. -Continue supplemental O2 as above on BiPAP currently -Continue Prednisone 3mg po daily. 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 (11) Peripheral arterial disease: Chronic. History of stents and angioplasty to bilateral LEs. Patient follows with Dr. Ramos. -Continue ASA 81mg po daily -Continue Plavix 75mg po daily -warfarin as below holding statin while on Dapto (12) History of DVT (deep vein thrombosis): Chronic -Was given Vit K 2.5mg 02/23 to reverse INR 5.8. INR now 1.3. Received 5mg w arfarin on 02/24 -Restart Coumadin 7.5 mg p.o. daily today -follow INR in AM (13) Essential thrombocytosis: Chronic Plts actually low in the 90s since admission which is unusual for him-now improved to the low 100s with holding his hydroxyurea Could be due to infection in setting of taking hydroxyurea -follow CBC -Continue to HOLD Hydroxyurea (14) Rheumatoid arthritis: Chronic -Continue daily Prednisone 3 mg once daily Hospitalist Team will continue to follow Admission and Anticipated Discharge Date Admission Date: February 23, 2020 Subjective Patient feels well, denies shortness of breath or chest pain, no nausea or vomiting. He had 3 loose bowel movements today, but those first bowel movement in the last 4 days. Denies pain in the foot. He is weaned down to 70% FiO2 on his high flow nasal cannula but sats were 84% when I was talking to him in the room. Telemetry with normal sinus rhythm, first-degree AV block, blocked PACs, rate 60s to 80s Review of Systems Review of Systems: All systems reviewed & are unremarkable except as noted in HPI & below Physical Exam Constitutional: + thin; no acute distress Eyes: + anicteric sclerae Neck: trachea midline, no thyromegaly Respiratory: normal respiratory effort Auscultation: + diminished lung sounds (throughout); no crackles, no rhonchi and no wheezes Cardiovascular: Rate/Rhythm: regular rate and regular rhythm Heart Sounds: + murmur (2/6 CATHLEEN at RUSB) Extremities: no edema Chest (Breasts): Chest: normal inspection of chest Gastrointestinal (Abdomen): normal bowel sounds, soft, nontender, no hepatosplenomegaly Musculoskeletal: Extremities: + extremities abnormal to inspection (right leg with dressing in place), no cyanosis and no clubbing Skin: no rashes, warm and dry Neurologic: moves all extremities and awake; no focal motor deficits Psychiatric: A+Ox3, euthymic affect Lymphatic: no lymphedema Results & Data Results & Data ([facility]) Vital Signs (Past 12 Hours) Vital Signs Temp Pulse Pulse Pulse Resp BP Pulse Ox 02/26/20 11:32 36.9 C 66 17 113/51 L 93 02/26/20 11:04 69 20 90 02/26/20 09:37 64 02/26/20 07:20 63 19 89 L 02/26/20 06:53 36.6 C 65 17 106/54 L 91 02/26/20 03:39 37.1 C 64 16 119/60 89 L 02/26/20 03:12 65 17 98 02/26/20 03:11 65 17 98 Laboratory Results 02/26/20 02/26/20 02/26/20 Range/Units 11:32 07:15 04:45 WBC (4.8-10.8) K/uL RBC (4.7-6.1) M/uL Hgb (14.0-18.0) g/dL Hct (42-52) % MCV (80-100) fL MCH (25-34) pg MCHC (32-36) g/dL RDW Std Deviation (36.4-46.3) fL RDW Coeff of Dru (11.5-14.5) % Plt Count (130-400) K/uL Immature Gran % (Auto) % Neut % (Auto) % Lymph % (Auto) % Meade % (Auto) % Eos % (Auto) % Baso % (Auto) % Neut # (Auto) (1.4-6.5) K/uL Lymph # (Auto) (1.2-3.4) K/uL Meade # (Auto) (0.11-0.59) K/uL Eos # (Auto) (0-0.5) K/uL Baso # (Auto) (0-0.2) K/uL Immature Gran # (Auto) (0.00-0.02) K/uL Platelet Estimate (Normal) RBC Morphology PT (9.0-12.0) Seconds INR (0.9-1.1) Sodium 140 (136-145) mmol/L Potassium 3.9 D (3.5-5.1) mmol/L Chloride 109 H (98-107) mmol/L Carbon Dioxide 23 (21-32) mmol/L Anion Gap 8.0 (3-11) BUN 31 H (7-18) mg/dl Creatinine 1.30 (0.6-1.4) mg/dl Est Cr Clr Drug Dosing 41.9 ml/min Est GFR ( Amer) 59.7 Est GFR (Non-Af Amer) 51.5 BUN/Creatinine Ratio 23.9 H (10-20) Glucose 136 H (70-99) mg/dl POC Glucose 206 H 167 H (70-99) mg/dl Calcium 7.8 L (8.5-10.1) mg/dl Total Bilirubin 0.6 (0.2-1) mg/dl AST 15 (15-37) U/L ALT 18 (12-78) U/L Alkaline Phosphatase 92 (45-117) U/L Total Protein 5.9 L (6.4-8.2) gm/dl Albumin 2.3 L (3.4-5.0) gm/dl Globulin 3.6 (2.5-4.0) gm/dl Albumin/Globulin Ratio 0.6 L (0.9-2) 02/26/20 02/26/20 02/25/20 Range/Units 04:45 04:45 20:13 WBC 13.67 H (4.8-10.8) K/uL RBC 3.17 L (4.7-6.1) M/uL Hgb 8.6 L (14.0-18.0) g/dL Hct 28.7 L (42-52) % MCV 90.5 (80-100) fL MCH 27.1 (25-34) pg MCHC 30.0 L (32-36) g/dL RDW Std Deviation 63.3 H (36.4-46.3) fL RDW Coeff of Dru 19.2 H (11.5-14.5) % Plt Count 105 L (130-400) K/uL Immature Gran % (Auto) 0.3 % Neut % (Auto) 89.6 % Lymph % (Auto) 4.2 % Meade % (Auto) 5.0 % Eos % (Auto) 0.7 % Baso % (Auto) 0.2 % Neut # (Auto) 12.23 H (1.4-6.5) K/uL Lymph # (Auto) 0.58 L (1.2-3.4) K/uL Meade # (Auto) 0.69 H (0.11-0.59) K/uL Eos # (Auto) 0.10 (0-0.5) K/uL Baso # (Auto) 0.03 (0-0.2) K/uL Immature Gran # (Auto) 0.04 H (0.00-0.02) K/uL Platelet Estimate Decreased L (Normal) RBC Morphology Unremarkable PT 13.2 H (9.0-12.0) Seconds INR 1.3 H (0.9-1.1) Sodium (136-145) mmol/L Potassium (3.5-5.1) mmol/L Chloride (98-107) mmol/L Carbon Dioxide (21-32) mmol/L Anion Gap (3-11) BUN (7-18) mg/dl Creatinine (0.6-1.4) mg/dl Est Cr Clr Drug Dosing ml/min Est GFR ( Amer) Est GFR (Non-Af Amer) BUN/Creatinine Ratio (10-20) Glucose (70-99) mg/dl POC Glucose 129 H (70-99) mg/dl Calcium (8.5-10.1) mg/dl Total Bilirubin (0.2-1) mg/dl AST (15-37) U/L ALT (12-78) U/L Alkaline Phosphatase (45-117) U/L Total Protein (6.4-8.2) gm/dl Albumin (3.4-5.0) gm/dl Globulin (2.5-4.0) gm/dl Albumin/Globulin Ratio (0.9-2) // Range/Units 16:21 WBC (4.8-10.8) K/uL RBC (4.7-6.1) M/uL Hgb (14.0-18.0) g/dL Hct (42-52) % MCV (80-100) fL MCH (25-34) pg MCHC (32-36) g/dL RDW Std Deviation (36.4-46.3) fL RDW Coeff of Dru (11.5-14.5) % Plt Count (130-400) K/uL Immature Gran % (Auto) % Neut % (Auto) % Lymph % (Auto) % Meade % (Auto) % Eos % (Auto) % Baso % (Auto) % Neut # (Auto) (1.4-6.5) K/uL Lymph # (Auto) (1.2-3.4) K/uL Meade # (Auto) (0.11-0.59) K/uL Eos # (Auto) (0-0.5) K/uL Baso # (Auto) (0-0.2) K/uL Immature Gran # (Auto) (0.00-0.02) K/uL Platelet Estimate (Normal) RBC Morphology PT (9.0-12.0) Seconds INR (0.9-1.1) Sodium (136-145) mmol/L Potassium (3.5-5.1) mmol/L Chloride (98-107) mmol/L Carbon Dioxide (21-32) mmol/L Anion Gap (3-11) BUN (7-18) mg/dl Creatinine (0.6-1.4) mg/dl Est Cr Clr Drug Dosing ml/min Est GFR ( Amer) Est GFR (Non-Af Amer) BUN/Creatinine Ratio (10-20) Glucose (70-99) mg/dl POC Glucose 121 H (70-99) mg/dl Calcium (8.5-10.1) mg/dl Total Bilirubin (0.2-1) mg/dl AST (15-37) U/L ALT (12-78) U/L Alkaline Phosphatase (45-117) U/L Total Protein (6.4-8.2) gm/dl Albumin (3.4-5.0) gm/dl Globulin (2.5-4.0) gm/dl Albumin/Globulin Ratio (0.9-2) PG Care Time/CCT Total # of Minutes Spent Total Time Spent with Patient: Total time spent is greater than 50% in coordination of care (as documented) at patient's floor/unit and/or counseling patient: Coding Level of Care Code 26532 Subseq Hosp Care Lvl 3 Diagnoses Acute and chronic respiratory failure with hypoxia J96.21 Osteomyelitis M86.9 Laterality: right Osteomyelitis location: foot Osteomyelitis type: unspecified type Anemia D64.9 Anemia type: unspecified type Aortic valve stenosis I35.0 Cardiac valve disease etiology: etiology unspecified Arteriosclerotic cardiovascular disease (ASCVD) I25.10 Benign hypertension I10 Chronic diastolic CHF (congestive heart failure) I50.32 CKD (chronic kidney disease) stage 3, GFR 30-59 ml/min N18.3 Diabetes mellitus E11.9 Diabetes mellitus complication status: without complication 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 use: without alf use Diabetes mellitus type: type 2 Idiopathic interstitial pneumonia J84.111 Peripheral arterial disease I73.9 History of DVT (deep vein thrombosis) Z86.718 Essential thrombocytosis D47.3 Rheumatoid arthritis M06.9 Rheumatoid arthritis location: unspecified site Rheumatoid factor presence: unspecified presence (1) Rheumatoid arthritis Rheumatoid arthritis location: unspecified site Rheumatoid factor presence: unspecified presence Qualified Code(s): M06.9 - Rheumatoid arthritis, unspecified (2) Diabetes mellitus Diabetes mellitus complication status: without complication 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
[2020-02-26] MEDS: WARFARIN SOD 7.5 MG TAB PO SCH (17:24)
[2020-02-26] MEDS: ASPIRIN 81 MG ECTAB PO SCH (21:17)
[2020-02-26] MEDS: SENNA 8.6 MG TAB PO SCH (21:17)
[2020-02-26] MEDS: CLOPIDOGREL BISULFATE 75 MG TAB PO SCH (21:17)
[2020-02-26] MEDS: predniSONE 1 MG TAB PO SCH (21:17)
[2020-02-27] MEDS: ALBUT/IPRATROP 3MG/0.5MG NEB 3 ML VIAL NEB SCH ×6 (03:12→23:44)
[2020-02-27] MEDS: ACETAMINOPHEN 500 MG TAB PO SCH ×3 (06:20→22:28)
--- NOTE | 2020-02-27 07:33 | Orthopedic Progress Note ---
Date of Service February 27, 2020 Assessment & Plan (1) Ulcer of right foot: POD #4 s/p Right foot irrigation and debridement of fifth metatarsal head ulcer, Right foot irrigation and debridement of lateral distal ulcer including skin, fascia, dermis and joint capsule of fifth metatarsal head Application of TheraSkin split thickness skin allograft to fifth metatarsal head region, right foot Cultures growing Staph. sensitive to Dapto NWB RLE at all times. Dressing to remain in place at all times for the next week. If it becomes saturated, keep adaptic over the graft material and change the gauze and cast padding. Appreciate medicine input. D/C planning--uncertain. Patient requesting [place]. Will await culture/sensitivity results, bed availability and optimizing patient's medical status. Pulmonary and Medicine on board. appreciate your care and following along with this patient. Admission and Anticipated Discharge Date Admission Date: February 23, 2020 Supervising Physician Co-Signing Physician Notes Patient seen and examined. Agree with SONNY Rodríguez's note above. Dressings clean, dry, intact. Wound looks good. No spreading erythema. Reports no pain. Pulmonology following for interstitial lung disease. Subjective POD #4 denies CP, N/V. denies any pain in his foot at this time. Physical Exam Physical Exam: Vital Signs Temp 36.6 C 02/27/20 07:17 Pulse 66 02/27/20 07:17 Resp 16 02/27/20 07:17 BP 90/45 L 02/27/20 07:17 Pulse Ox 100 02/27/20 07:17 Intake & Output 02/26/20 02/27/20 02/27/20 18:59 06:59 18:59 Intake Total 680 / 1120 440 / 1120 Output Total 802 / 1153 351 / 1153 Balance -122 / -33 89 / -33 Weight 66.2 kg Intake: Oral 680 / 1120 440 / 1120 Output: Urine 800 / 1150 350 / 1150 # Bowel Movement s 2 / 3 Musculoskeletal: Right Foot: Right foot: Dressing is C/D/I. No erythema noted. Results & Data ([facility]) Vital Signs (Past 12 Hours) Vital Signs Temp Pulse Pulse Pulse Resp BP Pulse Ox 02/27/20 07:17 36.6 C 66 16 90/45 L 100 02/27/20 05:09 36.8 C 75 17 107/65 93 02/27/20 03:14 83 21 90 02/27/20 03:13 83 21 90 02/26/20 23:42 37.4 C 86 18 146/97 H 91 02/26/20 23:32 100 H 24 88 L 02/26/20 23:31 100 H 24 88 L 02/26/20 23:00 80 02/26/20 22:33 75 18 84 L 02/26/20 19:46 36.5 C 75 18 125/61 89 L Laboratory Results Laboratory Results WBC 13.67 K/uL (4.8-10.8) H 02/26/20 04:45 RBC 3.17 M/uL (4.7-6.1) L 02/26/20 04:45 Hgb 8.6 g/dL (14.0-18.0) L 02/26/20 04:45 Hct 28.7 % (42-52) L 02/26/20 04:45 MCV 90.5 fL (80-100) 02/26/20 04:45 MCH 27.1 pg (25-34) 02/26/20 04:45 MCHC 30.0 g/dL (32-36) L 02/26/20 04:45 RDW Std Deviation 63.3 fL (36.4-46.3) H 02/26/20 04:45 RDW Coeff of Dru 19.2 % (11.5-14.5) H 02/26/20 04:45 Plt Count 105 K/uL (130-400) L 02/26/20 04:45 Immature Gran % (Auto) 0.3 % 02/26/20 04:45 Neut % (Auto) 89.6 % 02/26/20 04:45 Lymph % (Auto) 4.2 % 02/26/20 04:45 [place] % (Auto) 5.0 % 02/26/20 04:45 Eos % (Auto) 0.7 % 02/26/20 04:45 Baso % (Auto) 0.2 % 02/26/20 04:45 Neut # (Auto) 12.23 K/uL (1.4-6.5) H 02/26/20 04:45 Lymph # (Auto) 0.58 K/uL (1.2-3.4) L 02/26/20 04:45 [place] # (Auto) 0.69 K/uL (0.11-0.59) H 02/26/20 04:45 Eos # (Auto) 0.10 K/uL (0-0.5) 02/26/20 04:45 Baso # (Auto) 0.03 K/uL (0-0.2) 02/26/20 04:45 Immature Gran # (Auto) 0.04 K/uL (0.00-0.02) H 02/26/20 04:45 Absolute Nucleated RBC 0.03 K/uL (0-0) H 02/24/20 08:47 Nucleated RBC % (auto) 0.3 % 02/24/20 08:47 Hypersegmented Neuts 1+ 02/25/20 06:56 Dohle Bodies 1+ 02/25/20 06:56 Platelet Estimate Decreased (Normal) L 02/26/20 04:45 Giant Platelets 1+ 02/23/20 17:50 RBC Morphology Unremarkable 02/26/20 04:45 Tear Drop Cells 1+ 02/23/20 17:50 PT 13.2 Seconds (9.0-12.0) H 02/26/20 04:45 INR 1.3 (0.9-1.1) H 02/26/20 04:45 APTT 54.8 Seconds (21.0-31.0) H* 02/23/20 10:22 PTT Ratio 2.0 02/23/20 10:22 VBG pH 7.40 (7.36-7.41) 02/23/20 17:50 VBG pCO2 36 mmHg (38-50) L 02/23/20 17:50 VBG pO2 75 mmHg 02/23/20 17:50 VBG HCO3 22 mmol/L 02/23/20 17:50 VBG O2 Saturation < 60.0 % 02/23/20 17:50 VBG Base Excess -3.0 mEq/L 02/23/20 17:50 Barometric Pressure 735.0 mm/Hg 02/23/20 17:50 Sodium 140 mmol/L (136-145) 02/26/20 04:45 Potassium 3.9 mmol/L (3.5-5.1) D 02/26/20 04:45 Chloride 109 mmol/L (98-107) H 02/26/20 04:45 Carbon Dioxide 23 mmol/L (21-32) 02/26/20 04:45 Anion Gap 8.0 (3-11) 02/26/20 04:45 BUN 31 mg/dl (7-18) H 02/26/20 04:45 Creatinine 1.30 mg/dl (0.6-1.4) 02/26/20 04:45 Est Cr Clr Drug Dosing 41.9 ml/min 02/26/20 04:45 Est GFR ( Amer) 59.7 02/26/20 04:45 Est GFR (Non-Af Amer) 51.5 02/26/20 04:45 BUN/Creatinine Ratio 23.9 (10-20) H 02/26/20 04:45 Glucose 136 mg/dl (70-99) H 02/26/20 04:45 POC Glucose 152 mg/dl (70-99) H 02/27/20 07:05 Calcium 7.8 mg/dl (8.5-10.1) L 02/26/20 04:45 Phosphorus 3.5 mg/dl (2.5-4.9) 02/23/20 17:50 Magnesium 1.8 mg/dl (1.8-2.4) 02/25/20 06:56 Total Bilirubin 0.6 mg/dl (0.2-1) 02/26/20 04:45 Direct Bilirubin 0.2 mg/dl (0-0.2) 02/23/20 17:50 AST 15 U/L (15-37) 02/26/20 04:45 ALT 18 U/L (12-78) 02/26/20 04:45 Alkaline Phosphatase 92 U/L (45-117) 02/26/20 04:45 Total Creatine Kinase 81 U/L (39-308) 02/25/20 06:56 NT-Pro-B Natriuret Pep 7089 pg/ml (0-1800) H 02/23/20 17:50 Total Protein 5.9 gm/dl (6.4-8.2) L 02/26/20 04:45 Albumin 2.3 gm/dl (3.4-5.0) L 02/26/20 04:45 Globulin 3.6 gm/dl (2.5-4.0) 02/26/20 04:45 Albumin/Globulin Ratio 0.6 (0.9-2) L 02/26/20 04:45 Procalcitonin 0.09 ng/ml (0-0.5) 02/23/20 Unknown Blood Type A Positive 02/23/20 18:38 Antibody Screen NEGATIVE 02/23/20 18:38 Crossmatch See Detail 02/23/20 18:38
--- NOTE | 2020-02-27 07:58 | XRay Report ---
XR chest 1V portable CLINICAL HISTORY: Respiratory failure. COMPARISON STUDY: Chest CT and chest radiograph February 23, 2020. FINDINGS: Tip of right PICC projects over the right atrium. There is no pneumothorax. There are small bilateral pleural effusions. Cardiomediastinal silhouette is stable. Interstitial thickening in bila teral airspace opacities have progressed since exam of February 23, 2020. IMPRESSION: 1. Progression of interstitial thickening and bilateral opacities since prior exam. The findings favo r pulmonary edema although an infectious etiology could appear similar. 2. Small bilateral pleural effusions. No pneumothorax. ACT 112: Negative or not required by law. Electronically signed by: Andi Oliver M.D. 02/27/2020 7:56 AM
[2020-02-27] MEDS: INSULIN ASPART 100 UNITS/ML 3 ML PEN SC SCH ×4 (08:12→20:38)
[2020-02-27] MEDS: MULTIVITAMIN TAB PO SCH (08:13)
[2020-02-27] MEDS: DOCUSATE SODIUM 100 MG CAP PO SCH ×2 (08:13→20:40)
[2020-02-27] MEDS: FUROSEMIDE 20 MG in SYRINGE 0 ML IV SCH (08:13)
[2020-02-27] MEDS: DAPTOmycin 400 MG in SYRINGE 0 ML IV SCH (08:13)
[2020-02-27 08:34] LABS: Mean Corpuscular Hgb Conc 29.9 g/dL (32-36)
[2020-02-27 08:42] LABS: INR 1.8 (0.9-1.1)
[2020-02-27 08:44] LABS: Hematocrit (blood only) 32.1 % (42-52); Hemoglobin 9.6 g/dL (14.0-18.0); Mean Corpuscular Volume 90.4 fL (80-100); RDW Coefficient of Variation 19.4 % (11.5-14.5); RDW Standard Deviation 63.7 fL (36.4-46.3); Red Blood Count 3.55 M/uL (4.7-6.1); White Blood Count 18.36 K/uL (4.8-10.8)
[2020-02-27 09:03] LABS: BUN Creatinine Ratio 25.8 (10-20); Calcium 8.3 mg/dl (8.5-10.1); Est GFR (African American) 69.3; Est GFR (Non-African American) 59.8; Potassium 3.8 mmol/L (3.5-5.1)
[2020-02-27 09:04] LABS: Anisocytosis Present; Basophils # (auto) 0.03 K/uL (0-0.2); Basophils % (auto) 0.2 %; Eosinophils # (auto) 0.23 K/uL (0-0.5); Eosinophils % (auto) 1.3 %; Hypochromasia Present; Immature Granulocytes # (auto) 0.07 K/uL (0.00-0.02); Immature Granulocytes % (auto) 0.4 %; Lymphocytes # (auto) 0.72 K/uL (1.2-3.4); Lymphocytes % (auto) 3.9 %; Monocytes # (auto) 1.02 K/uL (0.11-0.59); Monocytes % (auto) 5.6 %; Neutrophils # (auto) 16.29 K/uL (1.4-6.5); Neutrophils % (auto) 88.6 %; Ovalocytes 1+; Platelet Count 122 K/uL (130-400); Platelet Estimate Decreased (Normal)
--- NOTE | 2020-02-27 10:41 | Hospitalist Progress Note ---
Date of Service February 27, 2020 Assessment & Plan (1) Acute and chronic respiratory failure with hypoxia: 79yo C male with history of idiopathic interstitial PNA on long-term steroids and home O2 of 4-5L, COPD, diastolic CHF, DM 2, DVT on Coumadin, CKD stage III, essential thrombocytosis, anemia, history of bladder cancer, HTN, hyperlipidemia, RA, aortic stenosis, PAD, here with post-operative hypoxia. Patient had debridement of RLE toe on 02/22. Saturations in the 80's despite being on NC + Facemask. Patient is asymptomatic, hemodynamically stable. CXR read as progressive bibasilar parenchymal infiltrates verses developing pulmonary edematous change - overall appears similar to prior images - patient with history of IIP. Had worsening resp status overnight on 02/22 after receiving 1/2 unit PRBCs for severe anemia CXR and chest CT on 02/22 with interlobular thickening and groundglass pattern within the lungs which favors pulmonary edema but infectious process could appear similar, trace bilateral pleural effusions with bilateral lower lobe airspace opacities which favor atelectasis versus consolidation, and numerous blastic skeletal metastases Received IV lasix and placed on BiPAP and then transition to high flow nasal cannula Slightly improved, but remains on high FiO2 at 80% on high flow nasal cannula Appreciate pulmonology recommendations-continued diuresis, CPAP or high flow nasal cannula and wean down to home O2 of 4-6 L nasal cannula. Will start salvage IV steroids today to see if helps Has end-stage pulmonary disease with cachexia. 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 Chest x-ray on 02/26 with progression of interstitial thickening bilateral opacities and small bilateral pleural effusions -Start IV Solu-Medrol 60 mg once daily -Continuous pulse oximetry -Continue supplemental O2 as needed, goal saturations of 88-92% -DuoNebs [id number] -Continue lasix IV 20mg daily as below -Appreciate pulmonology consultation (2) Osteomyelitis: Patient with history of PAD, DM, osteomyelitis of RLE s/p right foot irrigation and debridement performed here with skin graft. Surgery well tolerated. Patient afebrile, HD stable, non-toxic in appearance MRSA from previous foot wound Now with MSSA from current foot wound resistant to erythromycin and Bactrim -Post operative management, wound care, pain control per primary team -Continue Daptomycin 400mg IV daily given previous MRSA-plan for at least several more weeks (3) Anemia: Chronic. 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 - avoidance of overdiuresis (5) Arteriosclerotic cardiovascular disease (ASCVD): Chronic. Stable -Continue ASA, Plavix -Lisinopril on hold due to previous hypotension-continue to hold (6) Benign hypertension: Blood pressure stable at present -Holding Lisinopril/HCTZ due to previous hypotension -Continue to monitor (7) Chronic diastolic CHF (congestive heart failure): With acute on chronic diastolic CHF Patient possibly with mild congestion and volume overload -BNP elevated at 7000 -Continue IV Lasix 20mg daily -Monitor I/Os and weights (8) CKD (chronic kidney disease) stage 3, GFR 30-59 ml/min: Baseline Cr of appx 1.3. Creatinine currently 1.15 -Avoid nephrotoxins -Renal dosing where needed follow BMP (9) Diabetes mellitus: Chronic. Well controlled with [id number]=6 on 02/04/20 -hold home Glipizide and Metformin -Now with some hyperglycemia with starting IV Solu-Medrol -Diabetic diet -Add Lantus 8 units at bedtime and tighten down NovoLog sliding scale with lower correction factor and carb ratio (10) Idiopathic interstitial pneumonia: Chronic. Patient on 4-5L NC at baseline and reports his saturations are typically in the 80's to low 90's. He has seen Drs. Hardin and Landry and Shirley Dailey in the office. -Continue supplemental O2 as above on HFNC currently -Hold home prednisone 3mg po daily. Patient on mcc chronic steroids - starting IV Solu-Medrol as above (11) Peripheral arterial disease: Chronic. History of stents and angioplasty to bilateral LEs. Patient follows with Dr. Ramos. -Continue ASA 81mg po daily -Continue Plavix 75mg po daily -warfarin as below holding statin while on Dapto (12) History of DVT (deep vein thrombosis): Chronic -Was given Vit K 2.5mg 02/23 to reverse INR 5.8. INR now 1.3. Received 5mg warfarin on 02/24 -Restarted Coumadin 7.5 mg p.o. daily on 02/25 INR today up to 1.8 -follow INR in AM-we will likely need to go back to 5 mg daily if INR continues to rise rapidly (13) Essential thrombocytosis: Chronic Plts actually low in the 90s since admission which is unusual for him-now improved to the 120s with holding his hydroxyurea Could be due to infection in setting of taking hydroxyurea -follow CBC -Continue to HOLD Hydroxyurea (14) Rheumatoid arthritis: Chronic -Continue daily Prednisone 3 mg once daily (15) Leukocytosis: WBC count frequently elevated and more so today at 18 Could be stress response, could be also as he was discontinued from his hydroxyurea recently -Remains afebrile, no new signs of infection -Now on IV Solu-Medrol as of 02/26 which will likely further increase the WBC count -Follow CBC (16) DVT prophylaxis: Coumadin Disposition-remain on PCU for fragile pulmonary status After discussion with patient, he is decided to be a DNR/DNI If not improving, consider palliative consultation Admission and Anticipated Discharge Date Admission Date: February 23, 2020 Subjective Patient has no complaints today. He does not feel short of breath. His pulse ox was 94% when I saw him on high flow nasal cannula at 80% FiO2 and 40 L of flow. He denies chest pain or abdominal pain. Denies pain in the foot. He is afebrile. Telemetry with normal sinus rhythm and rate 60s 80s, first-degree AV block, PVCs I discussed the case with pulmonology I discussed the patient's CODE STATUS and he advised me that he did not want to ever be on a ventilator and did not want resuscitation. Review of Systems Review of Systems: All systems reviewed & are unremarkable except as noted in HPI & below Physical Exam Constitutional: + thin; no acute distress Eyes: + anicteric sclerae Neck: trachea midline, no thyromegaly Respiratory: normal respiratory effort Auscultation: + diminished lung sounds (throughout) and + wheezes (Diffuse bilateral wheezes); no crackles and no rhonchi Cardiovascular: Rate/Rhythm: regular rate and regular rhythm Heart Sounds: + murmur (2/6 CATHLEEN at RUSB) Extremities: no edema Chest (Breasts): Chest: normal inspection of chest Gastrointestinal (Abdomen): normal bowel sounds, soft, nontender, no hep atosplenomegaly Musculoskeletal: Extremities: + extremities abnormal to inspection (right leg with dressing in place), no cyanosis and no clubbing Skin: no rashes, warm and dry Neurologic: moves all extremities and awake; no focal motor deficits Psychiatric: Orientation: alert and oriented x 3 Affect: + flat affect Lymphatic: no lymphedema Results & Data Results & Data ([facility]) Vital Signs (Past 12 Hours) Vital Signs Temp Pulse Pulse Pulse Resp BP Pulse Ox 02/27/20 07:47 68 16 96 02/27/20 07:46 68 16 96 02/27/20 07:17 36.6 C 66 16 90/45 L 100 02/27/20 05:09 36.8 C 75 17 107/65 93 02/27/20 03:14 83 21 90 02/27/20 03:13 83 21 90 02/26/20 23:42 37.4 C 86 18 146/97 H 91 02/26/20 23:32 100 H 24 88 L 02/26/20 23:31 100 H 24 88 L 02/26/20 23:00 80 Laboratory Results 02/27/20 02/27/20 02/27/20 Range/Units 16:02 11:37 08:16 WBC (4.8-10.8) K/uL RBC (4.7-6.1) M/uL Hgb (14.0-18.0) g/dL Hct (42-52) % MCV (80-100) fL MCH (25-34) pg MCHC (32-36) g/dL RDW Std Deviation (36.4-46.3) fL RDW Coeff of Dru (11.5-14.5) % Plt Count (130-400) K/uL Immature Gran % (Auto) % Neut % (Auto) % Lymph % (Auto) % [place] % (Auto) % Eos % (Auto) % Baso % (Auto) % Neut # (Auto) (1.4-6.5) K/uL Lymph # (Auto) (1.2-3.4) K/uL [place] # (Auto) (0.11-0.59) K/uL Eos # (Auto) (0-0.5) K/uL Baso # (Auto) (0-0.2) K/uL Immature Gran # (Auto) (0.00-0.02) K/uL Platelet Estimate (Normal) Hypochromasia Anisocytosis Ovalocytes PT (9.0-12.0) Seconds INR (0.9-1.1) Sodium 136 (136-145) mmol/L Potassium 3.8 (3.5-5.1) mmol/L Chloride 106 (98-107) mmol/L Carbon Dioxide 22 (21-32) mmol/L Anion Gap 7.0 (3-11) BUN 30 H (7-18) mg/dl Creatinine 1.15 (0.6-1.4) mg/dl Est Cr Clr Drug Dosing 48.0 ml/min Est GFR ( Amer) 69.3 Est GFR (Non-Af Amer) 59.8 BUN/Creatinine Ratio 25.8 H (10-20) Glucose 141 H (70-99) mg/dl POC Glucose 230 H 175 H (70-99) mg/dl Calcium 8.3 L (8.5-10.1) mg/dl 02/27/20 02/27/20 02/27/20 Range/Units 08:16 08:16 07:05 WBC 18.36 H (4.8-10.8) K/uL RBC 3.55 L (4.7-6.1) M/uL Hgb 9.6 L (14.0-18.0) g/dL Hct 32.1 L (42-52) % MCV 90.4 (80-100) fL MCH 27.0 (25-34) pg MCHC 29.9 L (32-36) g/dL RDW Std Deviation 63.7 H (36.4-46.3) fL RDW Coeff of Dru 19.4 H (11.5-14.5) % Plt Count 122 L (130-400) K/uL Immature Gran % (Auto) 0.4 % Neut % (Auto) 88.6 % Lymph % (Auto) 3.9 % [place] % (Auto) 5.6 % Eos % (Auto) 1.3 % Baso % (Auto) 0.2 % Neut # (Auto) 16.29 H (1.4-6.5) K/uL Lymph # (Auto) 0.72 L (1.2-3.4) K/uL [place] # (Auto) 1.02 H (0.11-0.59) K/uL Eos # (Auto) 0.23 (0-0.5) K/uL Baso # (Auto) 0.03 (0-0.2) K/uL Immature Gran # (Auto) 0.07 H (0.00-0.02) K/uL Platelet Estimate Decreased L (Normal) Hypochromasia Present Anisocytosis Present Ovalocytes 1+ PT 18.0 H (9.0-12.0) Seconds INR 1.8 H (0.9-1.1) Sodium (136-145) mmol/L Potassium (3.5-5.1) mmol/L Chloride (98-107) mmol/L Carbon Dioxide (21-32) mmol/L Anion Gap (3-11) BUN (7-18) mg/dl Creatinine (0.6-1.4) mg/dl Est Cr Clr Drug Dosing ml/min Est GFR ( Amer) Est GFR (Non-Af Amer) BUN/Creatinine Ratio (10-20) Glucose (70-99) mg/dl POC Glucose 152 H (70-99) mg/dl Calcium (8.5-10.1) mg/dl 02/26/20 Range/Units 20:14 WBC (4.8-10.8) K/uL RBC (4.7-6.1) M/uL Hgb (14.0-18.0) g/dL Hct (42-52) % MCV (80-100) fL MCH (25-34) pg MCHC (32-36) g/dL RDW Std Deviation (36.4-46.3) fL RDW Coeff of Dru (11.5-14.5) % Plt Count (130-400) K/uL Immature Gran % (Auto) % Neut % (Auto) % Lymph % (Auto) % [place] % (Auto) % Eos % (Auto) % Baso % (Auto) % Neut # (Auto) (1.4-6.5) K/uL Lymph # (Auto) (1.2-3.4) K/uL [place] # (Auto) (0.11-0.59) K/uL Eos # (Auto) (0-0.5) K/uL Baso # (Auto) (0-0.2) K/uL Immature Gran # (Auto) (0.00-0.02) K/uL Platelet Estimate (Normal) Hypochromasia Anisocytosis Ovalocytes PT (9.0-12.0) Seconds INR (0.9-1.1) Sodium (136-145) mmol/L Potassium (3.5-5.1) mmol/L Chloride (98-107) mmol/L Carbon Dioxide (21-32) mmol/L Anion Gap (3-11) BUN (7-18) mg/dl Creatinine (0.6-1.4) mg/dl Est Cr Clr Drug Dosing ml/min Est GFR ( Amer) Est GFR (Non-Af Amer) BUN/Creatinine Ratio (10-20) Glucose (70-99) mg/dl POC Glucose 129 H (70-99) mg/dl Calcium (8.5-10.1) mg/dl Diagnostic Findings Chest x-ray image personally reviewed by me and agree with the following report: XR chest 1V portable CLINICAL HISTORY: Respiratory failure. COMPARISON STUDY: Chest CT and chest radiograph February 23, 2020. FINDINGS: Tip of right PICC projects over the right atrium. There is no pneumothorax. There are small bilateral pleural effusions. Cardiomediastinal silhouette is stable. Interstitial thickening in bilateral airspace opacities have progressed since exam of February 23, 2020. IMPRESSION: 1. Progression of interstitial thickening and bilateral opacities since prior exam. The findings favor pulmonary edema although an infectious etiology could appear similar. 2. Small bilateral pleural effusions. No pneumothorax. PG Care Time/CCT Total # of Minutes Spent Total Time Spent with Patient: Total time spent is greater than 50% in coordination of care (as documented) at patient's floor/unit and/or counseling patient: Coding Level of Care Code 99295 Subseq Hosp Care Lvl 3 Diagnoses Acute and chronic respiratory failure with hypoxia J96.21 Osteomyelitis M86.9 Laterality: right Osteomyelitis location: foot Osteomyelitis type: unspecified type Anemia D64.9 Anemia type: unspecified type Aortic valve stenosis I35.0 Cardiac valve disease etiology: etiology unspecified Arteriosclerotic cardiovascular disease (ASCVD) I25.10 Benign hypertension I10 Chronic diastolic CHF (congestive heart failure) I50.32 CKD (chronic kidney disease) stage 3, GFR 30-59 ml/min N18.3 Diabetes mellitus E11.9 Diabetes mellitus complication status: without complication Diabetes mellitus mcc insulin use: without mcc use Diabetes mellitus type: type 2 Idiopathic interstitial pneumonia J84.111 Peripheral arterial disease I73.9 History of DVT (deep vein thrombosis) Z86.718 Essential thrombocytosis D47.3 Rheumatoid arthritis M06.9 Rheumatoid arthritis location: unspecified site Rheumatoid factor presence: unspecified presence Leukocytosis D72.829 DVT prophylaxis Z29.9 (1) Rheumatoid arthritis Rheumatoid arthritis location: unspecified site Rheumatoid factor presence: unspecified presence Qualified Code(s): M06.9 - Rheumatoid arthritis, unspecified (2) Diabetes mellitus Diabetes mellitus complication status: without complication Diabetes mellitus mcc insulin use: without termination clerk use Diabetes mellitus type: type 2 Qualified Code(s): E11.9 - Type 2 diabetes mellitus without complications (3) Anemia Anemia type: unspecified type Qualified Code(s): D64.9 - Anemia, unspecified (4) Aortic valve stenosis Cardiac valve disease etiology: etiology unspecified Qualified Code(s): I35.0 - Nonrheumatic aortic (valve) stenosis (5) Osteomyelitis Laterality: right Osteomyelitis location: foot Osteomyelitis type: unspecified type Qualified Code(s): M86.9 - Osteomyelitis, unspecified
--- NOTE | 2020-02-27 10:45 | Pulmonology Progress Note ---
Date of Service February 27, 2020 Assessment & Plan (1) Hypoxia: Impression: 79-year-old male with chronic hypoxemic respiratory failure and oxygen requirement of 4 L at baseline presenting now status post I&D of osteomyelitis toe. He developed hypoxemic respiratory failure in conjunction with receiving some packed cells. Differential diagnosis is broad and would include transfusion associated circulatory overload, transfusion associated lung injury, with exacerbation of existing ILD felt to be less likely. Given his negative procalcitonin, I think infectious etiologies are also less likely. Right to left shunting due to a PFO or ASD is certainly possible. The patient had an echocardiogram performed last year which demonstrated no right to left shunt at that time. Recommendations: 1. Patient with increasing oxygen demands this morning. Chest x-ray also appears a bit more congested. Continue diuretic therapy with 20 mg of IV Lasix daily. I discussed with the hospitalist regarding the patient as well and I recommend starting him on IV Solu-Medrol once daily to see if this will improve his hypoxemia a bit. I would recommend that he be on a PPI given his risk related to GI bleed as he is on warfarin, Plavix and steroids. He also has essential thrombocytosis. 2. If PAP is required, would recommend CPAP rather than BiPAP. At a pressure setting of 5-10 cmH2O should be adequate. 3. History of interstitial lung disease: IV Solu-Medrol as above as salvage therapy at this point. 4. Overall, his prognosis remains quite poor. He is cachectic. He has chronic hypoxemic respiratory failure with an acute exacerbation that is likely multifactorial related to volume overload and possibly an exacerbation of underlying ILD. Albumin is quite low at 2.3. There is considerable risk with more aggressive diagnostic/therapeutic interventions such as bronchoscopy and I do not think that a bronchoscopy would significantly change his prognosis at this time. (2) Abnormal CT scan of lung: (3) Interstitial lung disease: (4) Moderate protein-energy malnutrition: Admission and Anticipated Discharge Date Admission Date: February 23, 2020 Subjective Patient was sleeping when I entered the room. He appeared to be comfortable. After waking him, he told me that he feels fine.He denies any chest pain, nausea or vomiting. No fevers overnight. I discussed starting him on IV Solu-Medrol and he indicated concerned about that elevating his blood sugar. He is currently requiring 85% FiO2 and 40 L. Review of Systems Review of Systems: All systems reviewed & are unremarkable except as noted in HPI & below Physical Exam Constitutional: WD/WN, vitals as above Cachectic appearing Neck: trachea midline, no thyromegaly Respiratory: normal respiratory effort, lungs clear to auscultation Cardiovascular: RRR, no murmur, no edema Gastrointestinal (Abdomen): normal bowel sounds, soft, nontender, no hepatosplenomegaly Musculoskeletal: Extremities: extremities normal to inspection Skin: no rashes, warm and dry Neurologic: Nonfocal exam Lymphatic: no cervical lymphadenopathy Results & Data Results & Data ([facility]) Vital Signs (Past 12 Hours) Vital Signs Temp Pulse Pulse Pulse Resp BP Pulse Ox 02/27/20 07:47 68 16 96 02/27/20 07:46 68 16 96 02/27/20 07:17 97.9 F 66 16 90/45 L 100 02/27/20 05:09 98.2 F 75 17 107/65 93 02/27/20 03:14 83 21 90 02/27/20 03:13 83 21 90 02/26/20 23:42 99.3 F 86 18 146/97 H 91 02/26/20 23:32 100 H 24 88 L 02/26/20 23:31 100 H 24 88 L 02/26/20 23:00 80 I personally reviewed labs and chest imaging.Vital signs reviewed and stable. PG Care Time/CCT Total # of Minutes Spent Total Time Spent with Patient: Total time spent is greater than 50% in coordination of care (as documented) at patient's floor/unit and/or counseling patient: Coding Level of Care Code 97430 Subseq Hosp Care Lvl 3 Diagnoses Hypoxia R09.[address] scan of lung R91.8 Interstitial lung disease J84.9 Moderate protein-energy malnutrition E44.0
[2020-02-27] MEDS: methylPREDNISolone 60 MG in SYRINGE 0 ML IV SCH (10:58)
[2020-02-27] MEDS: PANTOprazole 40 MG TAB PO SCH (12:11)
[2020-02-27] MEDS: WARFARIN SOD 7.5 MG TAB PO SCH (17:08)
[2020-02-27] MEDS: ASPIRIN 81 MG ECTAB PO SCH (20:37)
[2020-02-27] MEDS: SENNA 8.6 MG TAB PO SCH (20:38)
[2020-02-27] MEDS: CLOPIDOGREL BISULFATE 75 MG TAB PO SCH (20:38)
[2020-02-27] MEDS: INSULIN GLARGINE SOLOSTAR 100 UNITS/ML 3 ML PEN SC SCH (20:40)
[2020-02-28] MEDS: ALBUT/IPRATROP 3MG/0.5MG NEB 3 ML VIAL NEB SCH ×6 (02:57→22:42)
[2020-02-28] MEDS: ACETAMINOPHEN 500 MG TAB PO SCH ×3 (06:00→22:02)
[2020-02-28 06:35] LABS: Mean Corpuscular Hgb Conc 29.1 g/dL (32-36)
[2020-02-28 06:43] LABS: INR 2.3 (0.9-1.1); Prothrombin Time 23.3 Seconds (9.0-12.0)
[2020-02-28 07:14] LABS: Albumin Level 2.1 gm/dl (3.4-5.0); BUN Creatinine Ratio 24.7 (10-20); Calcium 8.2 mg/dl (8.5-10.1); Est GFR (African American) 52.3; Est GFR (Non-African American) 45.2
[2020-02-28 07:17] LABS: Albumin Globulin Ratio 0.6 (0.9-2); Bilirubin,Total 0.4 mg/dl (0.2-1); Globulin 3.6 gm/dl (2.5-4.0); Total Protein 5.7 gm/dl (6.4-8.2)
[2020-02-28 07:24] LABS: Hematocrit (blood only) 28.9 % (42-52); Hemoglobin 8.4 g/dL (14.0-18.0); Mean Corpuscular Hemoglobin 26.8 pg (25-34); RDW Coefficient of Variation 19.6 % (11.5-14.5); RDW Standard Deviation 65.9 fL (36.4-46.3); Red Blood Count 3.14 M/uL (4.7-6.1); White Blood Count 19.11 K/uL (4.8-10.8)
[2020-02-28 07:52] LABS: Anisocytosis Present; Basophils # (auto) 0.02 K/uL (0-0.2); Basophils % (auto) 0.1 %; Eosinophils # (auto) 0.11 K/uL (0-0.5); Eosinophils % (auto) 0.6 %; Immature Granulocytes # (auto) 0.04 K/uL (0.00-0.02); Immature Granulocytes % (auto) 0.2 %; Lymphocytes # (auto) 0.95 K/uL (1.2-3.4); Monocytes # (auto) 1.12 K/uL (0.11-0.59); Monocytes % (auto) 5.9 %; Neutrophils # (auto) 16.87 K/uL (1.4-6.5); Neutrophils % (auto) 88.2 %; Platelet Count 117 K/uL (130-400); Platelet Estimate Decreased (Normal)
[2020-02-28] MEDS: DOCUSATE SODIUM 100 MG CAP PO SCH ×2 (08:43→19:44)
[2020-02-28] MEDS: PANTOprazole 40 MG TAB PO SCH (08:43)
[2020-02-28] MEDS: FUROSEMIDE 20 MG in SYRINGE 0 ML IV SCH (08:44)
[2020-02-28] MEDS: INSULIN ASPART 100 UNITS/ML 3 ML PEN SC SCH ×4 (08:44→22:03)
[2020-02-28] MEDS: MULTIVITAMIN TAB PO SCH (08:44)
[2020-02-28] MEDS: methylPREDNISolone 60 MG in SYRINGE 0 ML IV SCH (08:44)
--- NOTE | 2020-02-28 08:59 | Pulmonology Progress Note ---
Date of Service February 28, 2020 Assessment & Plan (1) Hypoxia: Impression: 79-year-old male with chronic hypoxemic respiratory failure and oxygen requirement of 4 L at baseline presenting now status post I&D of osteomyelitis toe. He developed hypoxemic respiratory failure in conjunction with receiving some packed cells. Differential diagnosis is broad and would include transfusion associated circulatory overload, transfusion associated lung injury, with exacerbation of existing ILD felt to be less likely. Given his negative procalcitonin, I think infectious etiologies are also less likely. Right to left shunting due to a PFO or ASD is certainly possible. The patient had an echocardiogram performed last year which demonstrated no right to left shunt at that time. Recommendations: 1. Patient with increasing oxygen demands this morning. Chest x-ray also appears a bit more congested. This is likely multifactorial due to combinations of fluid overload given his underlying cardiovascular disease as well as progression of his structural lung disease. He has been started empirically on steroids which seems reasonable. Would push diuretics at this point in time and follow renal function. 2. If PAP is required, would recommend CPAP rather than BiPAP. At a pressure setting of 5-10 cmH2O should be adequate. 3. History of interstitial lung disease: IV Solu-Medrol as above as salvage therapy at this point. Continue at current doses 4. Agree that invasive approach such as surgical lung biopsy or bronchoscopy unlikely to yield much in this fragile elderly patient (2) Abnormal CT scan of lung: (3) Interstitial lung disease: (4) Moderate protein-energy malnutrition: Admission and Anticipated Discharge Date Admission Date: February 23, 2020 Subjective Patient seen and examined. EMR reviewed. He states he feels fine. He is having no respiratory issues. He does not report cough or sputum production. He has been able to be weaned down somewhat with regards to his high flow oxygen. No chest pain or palpitations. Review of Systems Review of Systems: All systems reviewed & are unremarkable except as noted in HPI & below Physical Exam Constitutional: WD/WN, vitals as above Neck: trachea midline, no thyromegaly Respiratory: normal respiratory effort, lungs clear to auscultation Cardiovascular: RRR, no murmur, no edema Gastrointestinal (Abdomen): normal bowel sounds, soft, nontender, no hepatosplenomegaly Musculoskeletal: Extremities: extremities normal to inspection Skin: no rashes, warm and dry Lymphatic: no cervical lymphadenopathy Results & Data Results & Data ([facility]) Vital Signs (Past 12 Hours) Vital Signs Temp Pulse Pulse Pulse Pulse Resp BP 02/28/20 07:40 36.3 C L 65 20 114/58 L 02/28/20 07:06 61 17 02/28/20 07:05 62 17 02/28/20 04:02 36.5 C 63 18 117/57 L 02/28/20 03:16 62 16 02/28/20 02:58 59 L 16 02/27/20 23:45 73 64 63 16 02/27/20 23:44 63 16 02/27/20 23:40 36.4 C L 64 16 111/56 L 02/27/20 23:00 63 Pulse Ox 02/28/20 07:40 88 L 02/28/20 07:06 95 02/28/20 07:05 99 02/28/20 04:02 93 02/28/20 03:16 97 02/28/20 02:58 97 02/27/20 23:45 89 L 02/27/20 23:44 89 L 02/27/20 23:40 94 02/27/20 23:00 I's and O's even Laboratory Results 02/28/20 06:01 02/28/20 06:01 Diagnostic Findings No new imaging PG Care Time/CCT Total # of Minutes Spent Total Time Spent with Patient: Total time spent is greater than 50% in coordination of care (as documented) at patient's floor/unit and/or counseling patient: Coding Level of Care Code 14830 Subseq Hosp Care Lvl 3 Diagnoses Hypoxia R09.[address] scan of lung R91.8 Interstitial lung disease J84.9 Moderate protein-energy malnutrition E44.0
[2020-02-28] MEDS: DAPTOmycin 400 MG in SYRINGE 0 ML IV SCH (09:03)
[2020-02-28] MEDS ORDERED: FUROSEMIDE 20 MG in SYRINGE 0 ML IV ONE (09:15)
--- NOTE | 2020-02-28 09:50 | Progress Note ---
Date of Service February 28, 2020 Pathology Note BLOOD BANK PATHOLOGIST NOTE: The blood bank asked me to investigate this patients previous blood transfusion on 02/23/2020. During the transfusion the patient was noted to have hypoxemic respiratory failure with oxygen saturations in the 80s. The transfusion was s topped due to his respiratory status, however, a transfusion reaction evaluation was not ordered. Dr. Coy, pulmonology, was later consulted. Based on the information available the findings are consistent with transfusion-associated circulatory overload (TACO). The case was further discussed with Dr. Coy who agrees with this assessment. Kenan Tao M.D.
--- NOTE | 2020-02-28 11:48 | Orthopedic Progress Note ---
Date of Service February 28, 2020 Assessment & Plan (1) Ulcer of right foot: POD #5 s/p Right foot irrigation and debridement of fifth metatarsal head ulcer, Right foot irrigation and debridement of lateral distal ulcer including skin, fascia, dermis and joint capsule of fifth metatarsal head Application of TheraSkin split thickness skin allograft to fifth metatarsal head region, right foot Cultures growing Staph. Currently on Dapto. NWB RLE at all times. Dressing to remain in place. Will plan to change dressing this Friday. If it becomes saturated, keep adaptic over the graft material and change the gauze and cast padding. Appreciate medicine and pulmonary input. D/C planning-- Patient requesting [facility]. Plan for transfer when medically stable. Admission and Anticipated Discharge Date Admission Date: February 23, 2020 Subjective Postop day 5 Patient is currently sitting up in bed awake and alert. He appears comfortable. He does not appear to be in any distress. States that his foot is feeling fine today. Pain is controlled. We were discussing discharge plans and he is hoping to get into [facility]. Physical Exam Physical Exam: Dressings are clean, dry, and intact. No overt drainage noted on the dressing at this time. Toes are mobile Results & Data ([facility]) Vital Signs (Past 12 Hours) Vital Signs Temp Pulse Pulse Pulse Resp BP Pulse Ox 02/28/20 11:31 36.8 C 64 24 120/61 91 02/28/20 11:02 68 20 94 02/28/20 07:40 36.3 C L 65 20 114/58 L 88 L 02/28/20 07:06 61 17 95 02/28/20 07:05 62 17 99 02/28/20 04:02 36.5 C 63 18 117/57 L 93 02/28/20 03:16 62 16 97 02/28/20 02:58 59 L 16 97 02/27/20 23:45 73 64 63 16 89 L 02/27/20 23:44 63 16 89 L
--- NOTE | 2020-02-28 16:29 | Hospitalist Progress Note ---
Date of Service February 28, 2020 Assessment & Plan (1) Acute and chronic respiratory failure with hypoxia: 79yo C male with history of idiopathic interstitial PNA on long-term steroids and home O2 of 4-5L, COPD, diastolic CHF, DM 2, DVT on Coumadin, CKD stage III, essential thrombocytosis, anemia, history of bladder cancer, HTN, hyperlipidemia, RA, aortic stenosis, PAD, here with post-operative hypoxia. Patient had debridement of RLE toe on 02/22. Saturations in the 80's despite being on NC + Facemask. Patient is asymptomatic, hemodynamically stable. CXR read as progressive bibasilar parenchymal infiltrates verses developing pulmonary edematous change - overall appears similar to prior images - patient with history of IIP. Had worsening resp status overnight on 02/22 after receiving 1/2 unit PRBCs for severe anemia CXR and chest CT on 02/22 with interlobular thickening and groundglass pattern within the lungs which favors pulmonary edema but infectious process could appear similar, trace bilateral pleural effusions with bilateral lower lobe airspace opacities which favor atelectasis versus consolidation, and numerous blastic skeletal metastases Received IV lasix and placed on BiPAP and then transition to high flow nasal cannula some improvement today then some more desaturations Appreciate pulmonology recommendations-continued diuresis, CPAP or high flow nasal cannula and wean down to home O2 of 4-6 L nasal cannula. Will start salvage IV steroids Has end-stage pulmonary disease with cachexia. 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 Chest x-ray on 02/26 with progression of interstitial thickening bilateral opacities and small bilateral pleural effusions -continue IV Solu-Medrol 60 mg once daily -Continuous pulse oximetry -Continue supplemental O2 as needed, goal saturations of 88-92% -DuoNebs [id number] -Continue lasix IV 40mg daily -Appreciate pulmonology consultation (2) Osteomyelitis: Patient with history of PAD, DM, osteomyelitis of RLE s/p right foot irrigation and debridement performed here with skin graft. Surgery well tolerated. Patient afebrile, HD stable, non-toxic in appearance MRSA from previous foot wound Now with MSSA from current foot wound resistant to erythromycin and Bactrim -Post operative management, wound care, pain control per primary team -Continue Daptomycin 400mg IV daily given previous MRSA-plan for at least several more weeks (3) Anemia: Chronic. Baseline Hgb 8-9 On hydroxyurea and also with chronic disease anemia hgb down to 7.3 post-op, with INR high at 5.8 No bleeding through foot dressing or anywhere else Received 1/2 unit PRBCs on 02/22 and developed worsening resp failure requiring diuresis and BiPAP Hgb now improved, > 8 for several days -follow CBC -discussed w/ his Eating Disorder Specialist who recommends holding hydroxyurea for now (4) Aortic valve stenosis: Chronic. - avoidance of overdiuresis (5) Arteriosclerotic cardiovascular disease (ASCVD): Chronic. Stable -Continue ASA, Plavix -Lisinopril on hold due to previous hypotension-continue to hold (6) Benign hypertension: Blood pressure stable at present -Holding Lisinopril/HCTZ due to previous hypotension -Continue to monitor (7) Chronic diastolic CHF (congestive heart failure): With acute on chronic diastolic CHF Patient possibly with mild congestion and volume overload -BNP elevated at 7000 -Continue IV Lasix 40mg daily -Monitor I/Os and weights, want to have net negative fluid balance daily (8) CKD (chronic kidney disease) stage 3, GFR 30-59 ml/min: Baseline Cr of appx 1.3. Creatinine currently 1.4 -Avoid nephrotoxins -Renal dosing where needed follow BMP (9) Diabetes mellitus: Chronic. Well controlled with [id number] on 02/04/20 -hold home Glipizide and Metformin -Now with some hyperglycemia with starting IV Solu-Medrol -Diabetic diet -Add Lantus 8 units at bedtime and tighten down NovoLog sliding scale with lower correction factor and carb ratio monitor for hypoglycemia (10) Idiopathic interstitial pneumonia: Chronic. Patient on 4-5L NC at baseline and reports his saturations are typically in the 80's to low 90's. He has seen Drs. Hardin and Landry and Shirley Dailey in the office. -Continue supplemental O2 as above on HFNC currently -Hold home prednisone 3mg po daily. Patient on fci chronic steroids - starting IV Solu-Medrol as above (11) Peripheral arterial disease: Chronic. History of stents and angioplasty to bilateral LEs. Patient follows with Dr. Ramos. -Continue ASA 81mg po daily -Continue Plavix 75mg po daily -warfarin as below holding statin while on Dapto (12) History of DVT (deep vein thrombosis): Chronic -Was given Vit K 2.5mg 02/23 to reverse INR 5.8. INR now 1.3. Received 5mg warfarin on 02/24 -Restarted Coumadin 7.5 mg p.o. daily on 02/25 INR today up to 2.3 -follow INR in AM-we will likely need to go back to 5 mg daily if INR continues to rise rapidly (13) Essential thrombocytosis: Chronic Could be due to infection in setting of taking hydroxyurea -follow CBC, plts 117k today -Continue to HOLD Hydroxyurea (14) Rheumatoid arthritis: Chronic -Continue daily Prednisone 3 mg once daily once done with Solu Medrol (15) Leukocytosis: WBC count frequently elevated and more so today at 19 Could be stress response, could be also as he was discontinued from his hydroxyurea recently -Remains afebrile, no new signs of infection -Now on IV Solu-Medrol as of 02/26 which will likely further increase the WBC count -Follow CBC (16) DVT prophylaxis: Coumadin Disposition-remain on PCU for fragile pulmonary status After discussion with patient, he is decided to be a DNR/DNI If not improving, consider palliative consultation Admission and Anticipated Discharge Date Admission Date: February 23, 2020 Subjective patient breathing is stable on 30L/min, 35% FiO2 appreciate pulmonology note, continue Lasix to keep lungs dry if he declines further then they recommend CPAP with pressure of 10cm appreciate note from pathology, looking into this as TACO as saturations dropped with transfusion although saturations were in 80's, patient had no dyspnea at all reviewed labs, WBC up to 19k, on steroids, Hb stable at 8.4 Cr up slightly at 1.4 on Lasix Review of Systems Review of Systems: All systems reviewed & are unremarkable except as noted in HPI & below Physical Exam Constitutional: well developed, + thin, + frail appearing and cooperative; no acute distress Eyes: PERRL, conjunctivae normal, anicteric sclerae ENMT: external ear and nose normal, oropharynx normal Neck: trachea midline, no thyromegaly Respiratory: normal respiratory effort; no respiratory distress and no labored breathing Auscultation: + diminished lung sounds, + crackles and + rhonchi Cardiovascular: RRR, no murmur, no edema Gastrointestinal (Abdomen): normal bowel sounds, soft, nontender, no hepatosplenomegaly Musculoskeletal: no cyanosis or clubbing, extremities motor strength 5/5 Skin: no rashes, warm and dry Neurologic: patellar DTR's 2+ bilat, sensation intact and PERRL, EOMI, accommodation nl, no face palsy, no dysarthria Psychiatric: A+Ox3, euthymic affect Lymphatic: no cervical or axillary lymphadenopathy Results & Data Results & Data ([facility]) Vital Signs (Past 12 Hours) Vital Signs Temp Pulse Pulse Resp BP Pulse Ox 02/28/20 16:01 37.1 C 71 24 103/51 L 88 L 02/28/20 15:27 70 20 91 02/28/20 11:31 36.8 C 64 24 120/61 91 02/28/20 11:02 68 20 94 02/28/20 07:40 36.3 C L 65 20 114/58 L 88 L 02/28/20 07:06 61 17 95 02/28/20 07:05 62 17 99 Laboratory Results Laboratory Results - last 24 hr 02/27/20 02/28/20 02/28/20 20:04 06:01 06:01 WBC 19.11 H RBC 3.14 L Hgb 8.4 L Hct 28.9 L MCV 92.0 MCH 26.8 MCHC 29.1 L RDW Std Deviation 65.9 H RDW Coeff of Dru 19.6 H Plt Count 117 L Immature Gran % (Auto) 0.2 Neut % (Auto) 88.2 Lymph % (Auto) 5.0 [place] % (Auto) 5.9 Eos % (Auto) 0.6 Baso % (Auto) 0.1 Neut # (Auto) 16.87 H Lymph # (Auto) 0.95 L [place] # (Auto) 1.12 H Eos # (Auto) 0.11 Baso # (Auto) 0.02 Immature Gran # (Auto) 0.04 H Hypersegmented Neuts 1+ Platelet Estimate Decreased L Anisocytosis Present PT 23.3 H INR 2.3 H Sodium Potassium Chloride Carbon Dioxide Anion Gap BUN Creatinine Est Cr Clr Drug Dosing Est GFR ( Amer) Est GFR (Non-Af Amer) BUN/Creatinine Ratio Glucose POC Glucose 249 H Calcium Total Bilirubin AST ALT Alkaline Phosphatase Total Protein Albumin Globulin Albumin/Globulin Ratio 02/28/20 02/28/20 02/28/20 06:01 07:04 11:27 WBC RBC Hgb Hct MCV MCH MCHC RDW Std Deviation RDW Coeff of Dru Plt Count Immature Gran % (Auto) Neut % (Auto) Lymph % (Auto) Meade % (Auto) Eos % (Auto) Baso % (Auto) Neut # (Auto) Lymph # (Auto) [place] # (Auto) Eos # (Auto) Baso # (Auto) Immature Gran # (Auto) Hypersegmented Neuts Platelet Estimate Anisocytosis PT INR Sodium 136 Potassium 4.0 Chloride 106 Carbon Dioxide 24 Anion Gap 6.0 BUN 36 H Creatinine 1.45 H D Est Cr Clr Drug Dosing 38.0 Est GFR ( Amer) 52.3 Est GFR (Non-Af Amer) 45.2 BUN/Creatinine Ratio 24.7 H Glucose 120 H POC Glucose 128 H 164 H Calcium 8.2 L Total Bilirubin 0.4 AST 11 L ALT 16 Alkaline Phosphatase 95 Total Protein 5.7 L Albumin 2.1 L Globulin 3.6 Albumin/Globulin Ratio 0.6 L Medications Administered Current Inpatient Medications Acetaminophen (Tylenol) 1,000 mg PO Q8 RA Stop: 03/24/20 21:59 Last Admin: 02/28/20 13:07 Dose: Not Given Documented by: Al Hydrox/Mg Hydrox/Simethicone (Maalox) 15 ml PO Q4H PRN PRN Reason: Heartburn Stop: 03/24/20 17:26 Albuterol (Duoneb) 3 ml NEB Q4R RA Stop: 03/24/20 18:59 Last Admin: 02/28/20 15:25 Dose: 3 ml Documented by: Aspirin (Ecotrin Ectab) 81 mg PO HS RA Stop: 03/24/20 20:59 Last Admin: 02/27/20 20:37 Dose: 81 mg Documented by: Bisacodyl (Dulcolax) 10 mg RI DAILY PRN PRN Reason: Constipation Stop: 03/24/20 17:26 Clopidogrel Bisulfate (Plavix) 75 mg PO PM RA Stop: 03/24/20 20:59 Last Admin: 02/27/20 20:38 Dose: 75 mg Documented by: Dextrose (Dextrose 50%) 25 - 50 ml IV UD PRN; Protocol PRN Reason: Hypoglycemia Protocol Stop: 08/14/20 18:22 Last Admin: 02/24/20 21:25 Dose: 50 ml Documented by: Diphenhydramine HCl (Benadryl Capsule) 25 mg PO Q8H PRN PRN Reason: Itching Stop: 03/24/20 17:26 Docusate Sodium (Colace) 100 mg PO BID RA Stop: 03/24/20 20:59 Last Admin: 02/28/20 08:43 Dose: 100 mg Documented by: Glucagon (Glucagen) 1 mg SQ UD PRN; Protocol PRN Reason: Hypoglycemia Protocol Stop: 03/24/20 18:22 Glucose (Dex4 Glucose) 4 - 8 tabs PO UD PRN; Protocol PRN Reason: Hypoglycemia Protocol Stop: 03/24/20 18:22 Glucose (Glucose 40%) 15 - 30 gm PO UD PRN; Protocol PRN Reason: Hypoglycemia Protocol Stop: 03/24/20 18:22 Heparin Sodium (Beef Lung) (Heparin Sod 10 Unit/Ml Flush) 5 ml FLUSH PRN PRN PRN Reason: Flush Stop: 03/27/20 00:08 Hydromorphone HCl (Dilaudid) 0.5 mg IV Q4H PRN PRN Reason: Pain or Pre PT Stop: 03/08/20 17:26 Daptomycin 400 mg/ Syringe 8 mls @ 4 mls/min IV Q24H RA; Protocol Stop: 04/06/20 07:59 Last Admin: 02/28/20 09:03 Dose: 4 mls/min Documented by: Methylprednisolone 60 mg/ (Syringe) 0.96 mls @ 1.5 mls/min IV DAILY RA Stop: 03/28/20 10:29 Last Admin: 02/28/20 08:44 Dose: 1.5 mls/min Documented by: Furosemide 40 mg/ Syringe 4 mls @ 4 mls/min IV DAILY RA Stop: 03/30/20 08:59 Insulin Aspart (Novolog Flexpen) 0 units SC ACHS RA Stop: 03/24/20 20:59 Last Admin: 02/28/20 12:40 Dose: 5 units Documented by: Insulin Glargine (Lantus Solostar Pen) 8 units SC HS RA Stop: 03/28/20 20:59 Last Admin: 02/27/20 20:40 Dose: 8 units Documented by: Magnesium Hydroxide (Milk Of Magnesia) 30 ml PO Q6H PRN PRN Reason: Constipation Stop: 03/24/20 17:26 Metoclopramide HCl (Reglan) 10 mg IV Q6H PRN PRN Reason: Nausea And Vomiting Stop: 03/24/20 17:26 Miscellaneous (Carbohydrates For Hypoglycemia) 15 - 30 gm PO UD PRN PRN Reason: Hypoglycemia Protocol Stop: 03/24/20 18:22 Miscellaneous Information (Consult) 1 ea N/A UD PRN PRN Reason: Consult Stop: 03/24/20 23:15 Multivitamins (Multivitamin Tab) 1 tab PO QAM RA Stop: 03/25/20 08:59 Last Admin: 02/28/20 08:44 Dose: 1 tab Documented by: Mupirocin (Bactroban 2%) 1 appln EXT BID PRN PRN Reason: SKIN BREAKDOWN Stop: 03/24/20 18:58 Naloxone HCl (Narcan) 0.1 mg IV Q5M PRN PRN Reason: Oversedation/Resp Depression Stop: 03/24/20 17:26 Ondansetron HCl (Zofran) 4 mg IV Q6H PRN PRN Reason: Nausea And Vomiting Stop: 03/24/20 17:26 Oxycodone HCl (Roxicodone Immediate Rel) 5 - 10 mg PO Q4H PRN PRN Reason: Pain or Pre PT Stop: 03/08/20 17:26 Last Admin: 02/23/20 18:22 Dose: 5 mg Documented by: Pantoprazole Sodium (Protonix) 40 mg PO QAM RA Stop: 03/28/20 10:59 Last Admin: 02/28/20 08:43 Dose: 40 mg Documented by: Prednisone (Prednisone) 3 mg PO QPM RA Stop: 03/24/20 20:59 Last Admin: 02/26/20 21:17 Dose: 3 mg Documented by: Sennosides (Senokot) 17.2 mg PO HS [facility] Stop: 03/24/20 20:59 Last Admin: 02/27/20 20:38 Dose: 17.2 mg Documented by: Tamsulosin HCl (Flomax) 0.4 mg PO QAM PRN PRN Reason: unable to void Stop: 03/24/20 17:26 Tramadol HCl (Ultram) 50 - 100 mg PO Q4H PRN PRN Reason: Pain & Pre PT Stop: 03/24/20 17:26 Warfarin Sodium (Coumadin) 7.5 mg PO DAILY@1600 RA Stop: 03/27/20 15:59 Last Admin: 02/27/20 17:08 Dose: 7.5 mg Documented by: PG Care Time/CCT Total # of Minutes Spent Total Time Spent with Patient: Total time spent is greater than 50% in coordination of care (as documented) at patient's floor/unit and/or counseling patient: Coding Level of Care Code 56834 Subseq Hosp Care Lvl 2 Diagnoses Acute and chronic respiratory failure with hypoxia J96.21 Osteomyelitis M86.9 Laterality: right Osteomyelitis location: foot Osteomyelitis type: unspecified type Anemia D64.9 Anemia type: unspecified type Aortic valve stenosis I35.0 Cardiac valve disease etiology: etiology unspecified Arteriosclerotic cardiovascular disease (ASCVD) I25.10 Benign hypertension I10 Chronic diastolic CHF (congestive heart failure) I50.32 CKD (chronic kidney disease) stage 3, GFR 30-59 ml/min N18.3 Diabetes mellitus E11.9 Diabetes mellitus complication status: without complication Diabetes mellitus fci insulin use: without fci use Diabetes mellitus type: type 2 Idiopathic interstitial pneumonia J84.111 Peripheral arterial disease I73.9 History of DVT (deep vein thrombosis) Z86.718 Essential thrombocytosis D47.3 Rheumatoid arthritis M06.9 Rheumatoid arthritis location: unspecified site Rheumatoid factor presence: unspecified presence Leukocytosis D72.829 DVT prophylaxis Z29.9 (1) Rheumatoid arthritis Rheumatoid arthritis location: unspecified site Rheumatoid factor presence: unspecified presence Qualified Code(s): M06.9 - Rheumatoid arthritis, unspecified (2) Diabetes mellitus Diabetes mellitus complication status: without complication Diabetes mellitus fci insulin use: without middle or intermediate school principal use Diabetes mellitus type: type 2 Qualified Code(s): E11.9 - Type 2 diabetes mellitus without complications (3) Anemia Anemia type: unspecified type Qualified Code(s): D64.9 - Anemia, unspecified (4) Aortic valve stenosis Cardiac valve disease etiology: etiology unspecified Qualified Code(s): I35.0 - Nonrheumatic aortic (valve) stenosis (5) Osteomyelitis Laterality: right Osteomyelitis location: foot Osteomyelitis type: unspecified type Qualified Code(s): M86.9 - Osteomyelitis, unspecified
[2020-02-28] MEDS: WARFARIN SOD 7.5 MG TAB PO SCH (16:52)
[2020-02-28] MEDS: ASPIRIN 81 MG ECTAB PO SCH (19:44)
[2020-02-28] MEDS: SENNA 8.6 MG TAB PO SCH (19:44)
[2020-02-28] MEDS: CLOPIDOGREL BISULFATE 75 MG TAB PO SCH (19:44)
[2020-02-28] MEDS: INSULIN GLARGINE SOLOSTAR 100 UNITS/ML 3 ML PEN SC SCH (22:03)
[2020-02-29] MEDS: ALBUT/IPRATROP 3MG/0.5MG NEB 3 ML VIAL NEB SCH ×6 (03:22→23:13)
[2020-02-29] MEDS: ACETAMINOPHEN 500 MG TAB PO SCH ×3 (05:44→21:22)
[2020-02-29] MEDS: FUROSEMIDE 40 MG in SYRINGE 0 ML IV SCH (08:02)
[2020-02-29] MEDS: DOCUSATE SODIUM 100 MG CAP PO SCH ×2 (08:02→21:15)
[2020-02-29] MEDS: methylPREDNISolone 60 MG in SYRINGE 0 ML IV SCH (08:03)
[2020-02-29] MEDS: PANTOprazole 40 MG TAB PO SCH (08:03)
[2020-02-29] MEDS: MULTIVITAMIN TAB PO SCH (08:03)
[2020-02-29] MEDS: DAPTOmycin 400 MG in SYRINGE 0 ML IV SCH (08:06)
[2020-02-29] MEDS: INSULIN ASPART 100 UNITS/ML 3 ML PEN SC SCH ×4 (08:08→21:19)
[2020-02-29 11:38] LABS: BUN Creatinine Ratio 26.2 (10-20); Creatinine Clr Calc Pharmacy 38.5 ml/min; Est GFR (African American) 53.2; Est GFR (Non-African American) 45.9; Potassium 3.7 mmol/L (3.5-5.1)
--- NOTE | 2020-02-29 12:54 | Pulmonology Progress Note ---
Date of Service February 29, 2020 Assessment & Plan (1) Hypoxia: Impression: 79-year-old male with chronic hypoxemic respiratory failure and oxygen requirement of 4 L at baseline presenting now status post I&D of osteomyelitis of right toe. Patient developed hypoxemic respiratory failure in conjunction with receiving some packed cells. Differential diagnosis is broad and would include transfusion associated circulatory overload, transfusion associated lung injury, with exacerbation of existing ILD felt to be less likely. Right to left shunting due to a PFO or ASD is certainly possible. The patient had an echocardiogram performed last year which demonstrated no right to left shunt at that time. Recommendations: 1. Patient seems to be improved somewhat with decrease in oxygen requirements. Currently on high flow oxygen at a rate of 30 L/min with an FiO2 of 60%. We will continue to titrate oxygen as tolerated. Goal would be to get patient back to his baseline of 4 L/min by nasal cannula. Procalcitonin was 0.09 which is negative. Patient did respond to diuretics. We will continue with diuretics as tolerated following renal function closely. 2. If PAP is required, would recommend CPAP rather than BiPAP. At a pressure setting of 5-10 cmH2O should be adequate. Continue to titrate high flow O2. 3. History of interstitial lung disease: Patient currently receiving 60 mg of IV Solu-Medrol for salvage therapy at this point. Continue at current dose of Solu-Medrol for now. We will continue to evaluate as oxygen requirements lessen. 4. Not a good candidate for surgical lung biopsy or bronchoscopy as this is unlikely to yield much in this fragile elderly patient 5. MRSA history: As listed above, patient had MRSA and was started on daptomycin 400 mg IV daily in January 2020. Current culture reveals MSSA with resistance to erythromycin and Bactrim. Due to limited placement options while on daptomycin discussed option of calling infectious disease at [facility] for further advice on antibiotic treatment. U will call Dr. Braun at [facility] for further advice. 6. Diabetes mellitus: Patient's most recent hemoglobin A1c was 6.0 on 02/04/2020. May consider increase in insulin as patient is on high-dose steroids which will result in hyperglycemia. Thank you for including us in the care of this patient. Please refer to Dr. Coy's addendum for further recommendations. (2) Abnormal CT scan of lung: (3) Interstitial lung disease: (4) Moderate protein-energy malnutrition: Admission and Anticipated Discharge Date Admission Date: February 23, 2020 Subjective Attending: Dr. Coy Patient seen and examined at bedside in room 211 bed 1. He has no acute complaints of respiratory distress. He is currently being converted from CPAP over to high flow oxygen. Currently he is on 30 L/min with an FiO2 of 60%. He denies any cough or sputum production. He further denies any fever or chills. Procalcitonin level 02/23/2020 was 0.09. Blood cultures are negative x2. Culture of the right foot 02/03/2020 was positive for MRSA. Patient at this time was discharged on daptomycin 400 mg daily IV. He was readmitted and underwent I&D and continues on daptomycin this admission. Cultures from this admission show methicillin sensitive staph aureus resistant to erythromycin and Bactrim. Patient has been afebrile during this admission. He currently reports pain being under control to the foot. He has no acute complaints. Review of Systems Review of Systems: All systems reviewed & are unremarkable except as noted in HPI & below Physical Exam Physical Exam: GENERAL : No acute distress EYES: No icterus, gaze conjugate NOSE: No evidence of epistaxis. High flow oxygen cannula in place and secure. MOUTH: No lesions or candidiasis NECK: Supple LUNGS: Generally clear to auscultation. Poor effort by patient. No appreciation of bronchospasm or rhonchi. Patient denies any sputum production or significant cough. HEART: Regular, rate controlled ABDOMEN: Soft, NT, ND, BS Present EXTREMITIES: No LE edema, pedal pulses intact and equal bilaterally. The right foot is dressed. Patient has multiple toes amputated on the right foot. Dressing was not removed for examination. NEURO: A&OX3 Results & Data Results & Data ([facility]) Vital Signs (Past 12 Hours) Vital Signs Temp Pulse Pulse Pulse Resp BP Pulse Ox 02/29/20 11:15 36.7 C 70 20 121/62 90 02/29/20 11:10 77 18 90 02/29/20 11:09 77 18 90 02/29/20 07:10 36.7 C 61 21 123/64 94 02/29/20 07:01 58 L 18 90 02/29/20 07:00 58 L 18 90 02/29/20 04:46 36.7 C 65 20 139/68 94 02/29/20 03:24 64 16 94 02/29/20 03:23 64 16 94 Laboratory Results 02/28/20 06:01 02/29/20 10:52 Microbiology 02/23/20 13:00 Gram Stain - Final Foot Aerobic and Anaerobic Culture - Final Staphylococcus aureus S aureus RX M.I.C. --- --------- Clindamycin S <=0.5 Daptomycin S <=0.5 Erythromycin R >4 Oxacillin S 2 Tetracycline S <=4 Trimeth/Sulfa R >2/38 Vancomycin S 2 S = SENSITIVE I = INTERMEDIATE R = RESISTANT Diagnostic Findings XR chest 1V portable CLINICAL HISTORY: Respiratory failure. COMPARISON STUDY: Chest CT and chest radiograph February 23, 2020. FINDINGS: Tip of right PICC projects over the right atrium. There is no pneumothorax. There are small bilateral pleural effusions. Cardiomediastinal silhouette is stable. Interstitial thickening in bilateral airspace opacities have progressed since exam of February 23, 2020. IMPRESSION: 1. Progression of interstitial thickening and bilateral opacities since prior exam. The findings favor pulmonary edema although an infectious etiology could appear similar. 2. Small bilateral pleural effusions. No pneumothorax. Electronically signed by: Andi Oliver M.D. 02/27/2020 7:56 AM PG Care Time/CCT Total # of Minutes Spent Total Time Spent with Patient: Total time spent is greater than 50% in coordination of care (as documented) at patient's floor/unit and/or counseling patient: 25 minutes Coding Level of Care Code 04633 Subseq Hosp Care Lvl 2 Diagnoses Hypoxia R09.[address] scan of lung R91.8 Interstitial lung disease J84.9 Moderate protein-energy malnutrition E44.0
--- NOTE | 2020-02-29 15:31 | Orthopedic Progress Note ---
Date of Service February 29, 2020 Assessment & Plan (1) Ulcer of right foot: POD #5 s/p Right foot irrigation and debridement of fifth metatarsal head ulcer, Right foot irrigation and debridement of lateral distal ulcer including skin, fascia, dermis and joint capsule of fifth metatarsal head Application of TheraSkin split thickness skin allograft to fifth metatarsal head region, right foot Cultures growing Staph. Currently on Dapto. I spoke with Dr. Fran Braun (Infectious Disease) from [facility] today. We discussed the patient's case, his current antibiotics, culture results, and renal function. With the recent operative cultures showing MSSA, he feels that it is okay to start the patient on cefazolin 2 g IV every 8 hours. He will need to continue this for another 4 to 6 weeks of treatment. If he continues to fail down the road, surgical resection of the metatarsal head and toe may be warranted. NWB RLE at all times. Dressing changes qod Appreciate medicine and pulmonary input. D/C planning-- Patient requesting [facility] [place]. Plan for transfer when medically stable. Admission and Anticipated Discharge Date Admission Date: February 23, 2020 Subjective Postop day 6 Patient currently sitting in his chair at the bedside but he is helped to the bed for dressing change. Patient has no complaints of any foot pain at this time. States he feels well. Currently on high flow oxygen and does not seem to be short of breath. No new complaints at this time. Physical Exam Physical Exam: Dressing removed. Wound appears benign at this time. There is no erythema around the edges. No obvious purulent drainage. [place] are holding a piece of Adaptic that is covering the skin grafting that was placed during surgery. Wound is redressed with Adaptic, 4 x 4's, Kerlix and an Eric wrap. I cannot appreciate a palpable pulse of the dorsalis pedis. Foot and remaining toes are mobile. Patient states he does have sensation. Results & Data ([facility]) Vital Signs (Past 12 Hours) Vital Signs Temp Pulse Pulse Resp BP Pulse Ox 02/29/20 11:15 36.7 C 70 20 121/62 90 02/29/20 11:10 77 18 90 02/29/20 11:09 77 18 90 02/29/20 07:10 36.7 C 61 21 123/64 94 02/29/20 07:01 58 L 18 90 02/29/20 07:00 58 L 18 02/29/20 04:46 36.7 C 65 20 139/68 94
--- NOTE | 2020-02-29 15:32 | Hospitalist Progress Note ---
Date of Service February 29, 2020 Assessment & Plan (1) Acute and chronic respiratory failure with hypoxia: 79yo C male with history of idiopathic interstitial PNA on long-term steroids and home O2 of 4-5L, COPD, diastolic CHF, DM 2, DVT on Coumadin, CKD stage III, essential thrombocytosis, anemia, history of bladder cancer, HTN, hyperlipidemia, RA, aortic stenosis, PAD, here with post-operative hypoxia. Patient had debridement of RLE toe on 02/22. Saturations in the 80's despite being on NC + Facemask. Patient is asymptomatic, hemodynamically stable. CXR read as progressive bibasilar parenchymal infiltrates verses developing pulmonary edematous change - overall appears similar to prior images - patient with history of IIP. Had worsening resp status overnight on 02/22 after receiving 1/2 unit PRBCs for severe anemia CXR and chest CT on 02/22 with interlobular thickening and groundglass pattern within the lungs which favors pulmonary edema but infectious process could appear similar, trace bilateral pleural effusions with bilateral lower lobe airspace opacities which favor atelectasis versus consolidation, and numerous blastic skeletal metastases Received IV lasix and placed on BiPAP and then transition to high flow nasal cannula some improvement today, less FiO2 requirement Appreciate pulmonology recommendations-continued diuresis, CPAP or high flow nasal cannula and wean down to home O2 of 4-6 L nasal cannula. Will start salvage IV steroids Has end-stage pulmonary disease with cachexia. 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 Chest x-ray on 02/26 with progression of interstitial thickening bilateral opacities and small bilateral pleural effusions -continue IV Solu-Medrol 60 mg once daily -Continuous pulse oximetry -Continue supplemental O2 as needed, goal saturations of 88-92% -DuoNebs [id number] -Continue lasix IV 40mg daily, Cr holding at 1.43 -Appreciate pulmonology consultation, if breathing worsens then recommend CPAP 5-10 of pressure (2) Osteomyelitis: Patient with history of PAD, DM, osteomyelitis of RLE s/p right foot irrigation and debridement performed here with skin graft. Surgery well tolera arin. Patient afebrile, HD stable, non-toxic in appearance MRSA from previous foot wound Now with MSSA from current foot wound resistant to erythromycin and Bactrim -Post operative management, wound care, pain control per primary team -Continue Daptomycin 400mg IV daily given previous MRSA-plan for at least several more weeks suggest ortho consult [facility] ID service for recommendations on shelter antibiotics since Daptomycin will be cost prohibitive (3) Anemia: Chronic. Baseline Hgb 8-9 On hydroxyurea and also with chronic disease anemia hgb down to 7.3 post-op, with INR high at 5.8 No bleeding through foot dressing or anywhere else Received 1/2 unit PRBCs on 02/22 and developed worsening resp failure requiring diuresis and BiPAP Hgb now improved, > 8 for several days -follow CBC -discussed w/ his Principal Research Economist who recommends holding hydroxyurea for now (4) Aortic valve stenosis: Chronic. - avoidance of overdiuresis (5) Arteriosclerotic cardiovascular disease (ASCVD): Chronic. Stable -Continue ASA, Plavix -Lisinopril on hold due to previous hypotension-continue to hold (6) Benign hypertension: Blood pressure stable at present -Holding Lisinopril/HCTZ due to previous hypotension -Continue to monitor (7) Chronic diastolic CHF (congestive heart failure): With acute on chronic diastolic CHF Patient possibly with mild congestion and volume overload -BNP elevated at 7000 -Continue IV Lasix 40mg daily -Monitor I/Os and weights, want to have net negative fluid balance daily, Lasix working well (8) CKD (chronic kidney disease) stage 3, GFR 30-59 ml/min: Baseline Cr of appx 1.3. Creatinine currently 1.43, stable for two days on Lasix -Avoid nephrotoxins -Renal dosing where needed follow BMP (9) Diabetes mellitus: Chronic. Well controlled with [id number]=5 on 02/04/20 -hold home Glipizide and Metformin -Now with some hyperglycemia with starting IV Solu-Medrol -Diabetic diet -Add Lantus 8 units at bedtime and tighten down NovoLog sliding scale with lower correction factor and carb ratio monitor for hypoglycemia, no episodes (10) Idiopathic interstitial pneumonia: Chronic. Patient on 4-5L NC at baseline and reports his saturations are typically in the 80's to low 90's. He has seen Drs. Hardin and Landry and Samantha Dailey in the office. -Continue supplemental O2 as above on HFNC currently -Hold home prednisone 3mg po daily. Patient on shelter chronic steroids - starting IV Solu-Medrol as above (11) Peripheral arterial disease: Chronic. History of stents and angioplasty to bilateral LEs. Patient follows with Dr. Ramos. -Continue ASA 81mg po daily -Continue Plavix 75mg po daily -warfarin as below holding statin while on Dapto (12) History of DVT (deep vein thrombosis): Chronic -Was given Vit K 2.5mg 02/23 to reverse INR 5.8. INR now 1.3. Received 5mg warfarin on 02/24 -Restarted Coumadin 7.5 mg p.o. daily on 02/25 INR today up to 2.3 on 02/27 (13) Essential thrombocytosis: Chronic Could be due to infection in setting of taking hydroxyurea -follow CBC, plts 117k yesterday -Continue to HOLD Hydroxyurea (14) Rheumatoid arthritis: Chronic -Continue daily Prednisone 3 mg once daily once done with Solu Medrol (15) Leukocytosis: WBC count frequently elevated and more so at 19k yesterday Could be stress response, could be also as he was discontinued from his hydroxyurea recently -Remains afebrile, no new signs of infection -Now on IV Solu-Medrol as of 02/26 which will likely further increase the WBC count -Follow CBC (16) DVT prophylaxis: Coumadin Disposition-remain on PCU for fragile pulmonary status After discussion with patient, he is decided to be a DNR/DNI If not improving, consider palliative consultation Admission and Anticipated Discharge Date Admission Date: February 23, 2020 Subjective patient is breathing well, no acute issues requiring slightly less oxygen today appreciate input from pulmonology he continues to diurese well, negative 1 liter per day he is eating well, has no pain in his foot Review of Systems Review of Systems: All systems reviewed & are unremarkable except as noted in Subjective Physical Exam Constitutional: well developed, + thin, + frail appearing and cooperative; no acute distress Eyes: PERRL, conjunctivae normal, anicteric sclerae ENMT: external ear and nose normal, oropharynx normal Neck: trachea midline, no thyromegaly Respiratory: normal respiratory effort; no respiratory distress and no labored breathing Auscultation: + diminished lung sounds, + crackles and + rhonchi Cardiovascular: RRR, no murmur, no edema Gastrointestinal (Abdomen): normal bowel sounds, soft, nontender, no hepatosplenomegaly Musculoskeletal: no cyanosis or clubbing, extremities motor strength 5/5 Skin: no rashes, warm and dry Neurologic: patellar DTR's 2+ bilat, sensation intact and PERRL, EOMI, accomm odation nl, no face palsy, no dysarthria Psychiatric: A+Ox3, euthymic affect Lymphatic: no cervical or axillary lymphadenopathy Results & Data Results & Data ([facility]) Vital Signs (Past 12 Hours) Vital Signs Temp Pulse Pulse Resp BP Pulse Ox 02/29/20 11:15 36.7 C 70 20 121/62 90 02/29/20 11:10 77 18 90 02/29/20 11:09 77 18 90 02/29/20 07:10 36.7 C 61 21 123/64 94 02/29/20 07:01 58 L 18 90 02/29/20 07:00 58 L 18 90 02/29/20 04:46 36.7 C 65 20 139/68 94 Laboratory Results Laboratory Results - last 24 hr 02/28/20 02/28/20 02/29/20 16:32 20:56 07:08 Sodium Potassium Chloride Carbon Dioxide Anion Gap BUN Creatinine Est Cr Clr Drug Dosing Est GFR ( Amer) Est GFR (Non-Af Amer) BUN/Creatinine Ratio Glucose POC Glucose 257 H 171 H 118 H Calcium 02/29/20 02/29/20 10:52 11:13 Sodium 137 Potassium 3.7 Chloride 105 Carbon Dioxide 26 Anion Gap 6.0 BUN 38 H Creatinine 1.43 H Est Cr Clr Drug Dosing 38.5 Est GFR ( Amer) 53.2 Est GFR (Non-Af Amer) 45.9 BUN/Creatinine Ratio 26.2 H Glucose 219 H POC Glucose 224 H Calcium 8.0 L Medications Administered Current Inpatient Medications Acetaminophen (Tylenol) 1,000 mg PO Q8 RA Stop: 03/24/20 21:59 Last Admin: 02/29/20 13:21 Dose: Not Given Documented by: Al Hydrox/Mg Hydrox/Simethicone (Maalox) 15 ml PO Q4H PRN PRN Reason: Heartburn Stop: 03/24/20 17:26 Albuterol (Duoneb) 3 ml NEB Q4R RA Stop: 03/24/20 18:59 Last Admin: 02/29/20 11:09 Dose: 3 ml Documented by: Aspirin (Ecotrin Ectab) 81 mg PO HS RA Stop: 03/24/20 20:59 Last Admin: 02/28/20 19:44 Dose: 81 mg Documented by: Bisacodyl (Dulcolax) 10 mg UT DAILY PRN PRN Reason: Constipation Stop: 03/24/20 17:26 Clopidogrel Bisulfate (Plavix) 75 mg PO PM RA Stop: 03/24/20 20:59 Last Admin: 02/28/20 19:44 Dose: 75 mg Documented by: Dextrose (Dextrose 50%) 25 - 50 ml IV UD PRN; Protocol PRN Reason: Hypoglycemia Protocol Stop: 03/24/20 18:22 Last Admin: 02/24/20 21:25 Dose: 50 ml Documented by: Diphenhydramine HCl (Benadryl Capsule) 25 mg PO Q8H PRN PRN Reason: Itching Stop: 03/24/20 17:26 Docusate Sodium (Colace) 100 mg PO BID RA Stop: 03/24/20 20:59 Last Admin: 02/29/20 08:02 Dose: 100 mg Documented by: Glucagon (Glucagen) 1 mg SQ UD PRN; Protocol PRN Reason: Hypoglycemia Protocol Stop: 03/24/20 18:22 Glucose (Dex4 Glucose) 4 - 8 tabs PO UD PRN; Protocol PRN Reason: Hypoglycemia Protocol Stop: 03/24/20 18:22 Glucose (Glucose 40%) 15 - 30 gm PO UD PRN; Protocol PRN Reason: Hypoglycemia Protocol Stop: 03/24/20 18:22 Heparin Sodium (Beef Lung) (Heparin Sod 10 Unit/Ml Flush) 5 ml FLUSH PRN PRN PRN Reason: Flush Stop: 03/27/20 00:08 Hydromorphone HCl (Dilaudid) 0.5 mg IV Q4H PRN PRN Reason: Pain or Pre PT Stop: 03/08/20 17:26 Daptomycin 400 mg/ Syringe 8 mls @ 4 mls/min IV Q24H RA; Protocol Stop: 04/06/20 07:59 Last Admin: 02/29/20 08:06 Dose: 4 mls/min Documented by: Methylprednisolone 60 mg/ (Syringe) 0.96 mls @ 1.5 mls/min IV DAILY RA Stop: 03/28/20 10:29 Last Admin: 02/29/20 08:03 Dose: 1.5 mls/min Documented by: Furosemide 40 mg/ Syringe 4 mls @ 4 mls/min IV DAILY [facility] Stop: 03/30/20 08:59 Last Admin: 02/29/20 08:02 Dose: 4 mls/min Documented by: Insulin Aspart (Novolog Flexpen) 0 units SC ACHS [facility] Stop: 03/24/20 20:59 Last Admin: 02/29/20 12:06 Dose: 11 units Documented by: Insulin Glargine (Lantus Solostar Pen) 8 units SC HS [facility] Stop: 03/28/20 20:59 Last Admin: 02/28/20 22:03 Dose: 8 units Documented by: Magnesium Hydroxide (Milk Of Magnesia) 30 ml PO Q6H PRN PRN Reason: Constipation Stop: 03/24/20 17:26 Metoclopramide HCl (Reglan) 10 mg IV Q6H PRN PRN Reason: Nausea And Vomiting Stop: 03/24/20 17:26 Miscellaneous (Carbohydrates For Hypoglycemia) 15 - 30 gm PO UD PRN PRN Reason: Hypoglycemia Protocol Stop: 03/24/20 18:22 Miscellaneous Information (Consult) 1 ea N/A UD PRN PRN Reason: Consult Stop: 03/24/20 23:15 Multivitamins (Multivitamin Tab) 1 tab PO QAM [facility] Stop: 03/25/20 08:59 Last Admin: 02/29/20 08:03 Dose: 1 tab Documented by: Mupirocin (Bactroban 2%) 1 appln EXT BID PRN PRN Reason: SKIN BREAKDOWN Stop: 03/24/20 18:58 Naloxone HCl (Narcan) 0.1 mg IV Q5M PRN PRN Reason: Oversedation/Resp Depression Stop: 03/24/20 17:26 Ondansetron HCl (Zofran) 4 mg IV Q6H PRN PRN Reason: Nausea And Vomiting Stop: 03/24/20 17:26 Oxycodone HCl (Roxicodone Immediate Rel) 5 - 10 mg PO Q4H PRN PRN Reason: Pain or Pre PT Stop: 03/08/20 17:26 Last Admin: 02/23/20 18:22 Dose: 5 mg Documented by: Pantoprazole Sodium (Protonix) 40 mg PO QAM RA Stop: 03/28/20 10:59 Last Admin: 02/29/20 08:03 Dose: 40 mg Documented by: Prednisone (Prednisone) 3 mg PO QPM RA Stop: 03/24/20 20:59 Last Admin: 02/26/20 21:17 Dose: 3 mg Documented by: Sennosides (Senokot) 17.2 mg PO HS RA Stop: 03/24/20 20:59 Last Admin: 02/28/20 19:44 Dose: 17.2 mg Documented by: Tamsulosin HCl (Flomax) 0.4 mg PO QAM PRN PRN Reason: unable to void Stop: 03/24/20 17:26 Tramadol HCl (Ultram) 50 - 100 mg PO Q4H PRN PRN Reason: Pain & Pre PT Stop: 03/24/20 17:26 Warfarin Sodium (Coumadin) 7.5 mg PO DAILY@1600 [facility] Stop: 03/27/20 15:59 Last Admin: 02/28/20 16:52 Dose: 7.5 mg Documented by: PG Care Time/CCT Total # of Minutes Spent Total Time Spent with Patient: Total time spent is greater than 50% in coordination of care (as documented) at patient's floor/unit and/or counseling patient: Coding Level of Care Code 42707 Subseq Hosp Care Lvl 3 Diagnoses Acute and chronic respiratory failure with hypoxia J96.21 Osteomyelitis M86.9 Laterality: right Osteomyelitis location: foot Osteomyelitis type: unspecified type Anemia D64.9 Anemia type: unspecified type Aortic valve stenosis I35.0 Cardiac valve disease etiology: etiology unspecified Arteriosclerotic cardiovascular disease (ASCVD) I25.10 Benign hypertension I10 Chronic diastolic CHF (congestive heart failure) I50.32 CKD (chronic kidney disease) stage 3, GFR 30-59 ml/min N18.3 Diabetes mellitus E11.9 Diabetes mellitus complication status: without complication Diabetes mellitus terminal block assembler insulin use: without terminal block assembler use Diabetes mellitus type: type 2 Idiopathic interstitial pneumonia J84.111 Peripheral arterial disease I73.9 History of DVT (deep vein thrombosis) Z86.718 Essential thrombocytosis D47.3 Rheumatoid arthritis M06.9 Rheumatoid arthritis location: unspecified site Rheumatoid factor presence: unspecified presence Leukocytosis D72.829 DVT prophylaxis Z29.9 (1) Rheumatoid arthritis Rheumatoid arthritis location: unspecified site Rheumatoid factor presence: unspecified presence Qualified Code(s): M06.9 - Rheumatoid arthritis, unspecified (2) Diabetes mellitus Diabetes mellitus complication status: without complication Diabetes mellitus terminal block assembler insulin use: without shelter use Diabetes mellitus type: type 2 Qualified Code(s): E11.9 - Type 2 diabetes mellitus without complications (3) Anemia Anemia type: unspecified type Qualified Code(s): D64.9 - Anemia, unspecified (4) Aortic valve stenosis Cardiac valve disease etiology: etiology unspecified Qualified Code(s): I35.0 - Nonrheumatic aortic (valve) stenosis (5) Osteomyelitis Laterality: right Osteomyelitis location: foot Osteomyelitis type: unspecified type Qualified Code(s): M86.9 - Osteomyelitis, unspecified
[2020-02-29] MEDS: WARFARIN SOD 7.5 MG TAB PO SCH (17:29)
[2020-02-29] MEDS: SENNA 8.6 MG TAB PO SCH (21:14)
[2020-02-29] MEDS: CLOPIDOGREL BISULFATE 75 MG TAB PO SCH (21:15)
[2020-02-29] MEDS: ASPIRIN 81 MG ECTAB PO SCH (21:15)
[2020-02-29] MEDS: INSULIN GLARGINE SOLOSTAR 100 UNITS/ML 3 ML PEN SC SCH (21:19)
[2020-03-01] MEDS: ALBUT/IPRATROP 3MG/0.5MG NEB 3 ML VIAL NEB SCH ×6 (03:42→23:34)
[2020-03-01] MEDS: ACETAMINOPHEN 500 MG TAB PO SCH ×3 (05:24→21:52)
[2020-03-01 07:15] LABS: INR 3.5 (0.9-1.1); Prothrombin Time 34.6 Seconds (9.0-12.0)
[2020-03-01 07:22] LABS: Hematocrit (blood only) 30.8 % (42-52); Hemoglobin 8.9 g/dL (14.0-18.0); Mean Corpuscular Hemoglobin 26.3 pg (25-34); Mean Corpuscular Hgb Conc 28.9 g/dL (32-36); Mean Corpuscular Volume 91.1 fL (80-100); Platelet Count 166 K/uL (130-400); RDW Coefficient of Variation 19.2 % (11.5-14.5); RDW Standard Deviation 63.4 fL (36.4-46.3); Red Blood Count 3.38 M/uL (4.7-6.1); White Blood Count 19.74 K/uL (4.8-10.8)
[2020-03-01 07:27] LABS: Anisocytosis Present; Basophils # (auto) 0.03 K/uL (0-0.2); Basophils % (auto) 0.2 %; Dohle Bodies 1+; Eosinophils # (auto) 0.34 K/uL (0-0.5); Eosinophils % (auto) 1.7 %; Hypochromasia Present; Immature Granulocytes # (auto) 0.11 K/uL (0.00-0.02); Immature Granulocytes % (auto) 0.6 %; Lymphocytes # (auto) 1.13 K/uL (1.2-3.4); Lymphocytes % (auto) 5.7 %; Monocytes # (auto) 1.24 K/uL (0.11-0.59); Monocytes % (auto) 6.3 %; Neutrophils # (auto) 16.89 K/uL (1.4-6.5); Neutrophils % (auto) 85.5 %
[2020-03-01 07:37] LABS: Creatinine Clr Calc Pharmacy 43.4 ml/min; Est GFR (African American) 61.4; Potassium 3.6 mmol/L (3.5-5.1)
[2020-03-01] MEDS: MULTIVITAMIN TAB PO SCH (07:37)
[2020-03-01] MEDS: PANTOprazole 40 MG TAB PO SCH (07:37)
[2020-03-01] MEDS: INSULIN ASPART 100 UNITS/ML 3 ML PEN SC SCH ×4 (07:37→20:16)
[2020-03-01] MEDS: DOCUSATE SODIUM 100 MG CAP PO SCH ×2 (07:37→20:14)
[2020-03-01] MEDS: methylPREDNISolone 60 MG in SYRINGE 0 ML IV SCH (08:10)
[2020-03-01] MEDS: FUROSEMIDE 40 MG in SYRINGE 0 ML IV SCH (08:11)
[2020-03-01] MEDS: CEFAZOLIN 2000MG 2,000 MG/15 ML SYR IV SCH ×2 (08:11→16:39)
--- NOTE | 2020-03-01 11:24 | Pulmonology Progress Note ---
Date of Service March 01, 2020 Assessment & Plan (1) Hypoxia: Impression: 79-year-old male with chronic hypoxemic respiratory failure and oxygen requirement of 4 L at baseline presenting now status post I&D of osteomyelitis of right toe. Patient developed hypoxemic respiratory failure in conjunction with receiving some packed cells. Differential diagnosis is broad and would include transfusion associated circulatory overload, transfusion associated lung injury, with exacerbation of existing ILD felt to be less likely. Right to left shunting due to a PFO or ASD is certainly possible. The patient had an echocardiogram performed last year which demonstrated no right to left shunt at that time. Recommendations: 1. Patient seems to be improved somewhat with decrease in oxygen requirements. Currently on high flow oxygen at a rate of 30 L/min with an FiO2 of 60%. Continue to titrate oxygen as tolerated. Goal would be to get patient back to his baseline of 4 L/min by nasal cannula. Procalcitonin was 0.09 which is negative. Patient did respond to diuretics. We will continue with diuretics as tolerated following renal function closely. 2. If PAP is required, would recommend CPAP rather than BiPAP. At a pressure setting of 5-10 cmH2O should be adequate. Continue to titrate high flow O2. 3. History of interstitial lung disease: Patient currently receiving 60 mg of IV Solu-Medrol for salvage therapy at this point. Consider changing to 60mg Prednisone daily tomorrow. We will continue to evaluate as oxygen requirements lessen. 4. Not a good candidate for surgical lung biopsy or bronchoscopy as this is unlikely to yield much in this fragile elderly patient 5. MRSA history: As listed above, patient had MRSA and was started on daptomycin 400 mg IV daily in January 2020. Current culture reveals MSSA with resistance to erythromycin and Bactrim. Due to limited placement options while on daptomycin discussed option of calling infectious disease at [facility] for further advice on antibiotic treatment. U call to Dr. Braun at [facility] 02/29/2020 - suggest changing to Cefazolin 2g IV q8h for another 4-6 weeks. 6. Diabetes mellitus: Patient's most recent hemoglobin A1c was 6.0 on 02/04/2020. May consider increase in insulin as patient is on high-dose steroids which will result in hyperglycemia. Thank you for including us in the care of this patient. Please refer to Dr. Coy's addendum for further recommendations. (2) Abnormal CT scan of lung: (3) Interstitial lung disease: (4) Moderate protein-energy malnutrition: Admission and Anticipated Discharge Date Admission Date: February 23, 2020 Supervising Physician Co-Signing Physician Notes Discussed with [id number] and agree with A/P as noted. DDx remains TACO or TRALI, volume overload, or daptomycin pulmonary toxicity in setting of underlying ILD. Continue diuresis and steroids, wean oxygen as tolerated for saturation 85-88%. Will follow. Subjective Attending: Dr. Coy Patient seen and examined at bedside. He was in the chair. He had no respiratory distress or discomfort. He states he has been doing fairly well this morning. He did have occupational therapy and had no exertional dyspnea. It should be noted that he did desaturate into the low to mid 80s and was asymptomatic. He denies any cough or sputum production. He denies any fever, chills, sweats, rigors. Pain is relatively controlled in his right foot. He has no other acute complaints. Review of Systems Review of Systems: All systems reviewed & are unremarkable except as noted in HPI & below Physical Exam Physical Exam: GENERAL : No acute distress. EYES: No icterus, gaze conjugate NOSE: No evidence of epistaxis MOUTH: No lesions or candidiasis. Mucosa moist NECK: Supple LUNGS: CTA B/L, no wheezes, rales or rhonchi HEART: Regular, rate controlled ABDOMEN: Soft, NT, ND, BS Present EXTREMITIES: No LE edema, pedal pulses intact. Dressing on right foot is dry and secure NEURO: A&OX3 Results & Data Results & Data ([facility]) Vital Signs (Past 12 Hours) Vital Signs Temp Pulse Pulse Pulse Pulse Resp BP 03/01/20 11:13 72 18 03/01/20 08:02 36.7 C 83 20 132/64 03/01/20 07:12 67 18 03/01/20 03:44 60 20 03/01/20 03:36 36.6 C 61 30 H 127/63 03/01/20 00:45 66 02/29/20 23:51 36.5 C 68 148/100 H Pulse Ox 03/01/20 11:13 91 03/01/20 08:02 92 03/01/20 07:12 95 03/01/20 03:44 93 03/01/20 03:36 93 03/01/20 00:45 02/29/20 23:51 90 Laboratory Results 03/01/20 06:18 03/01/20 06:18 Diagnostic Findings No further images since 02/27/2020 PG Care Time/CCT Total # of Minutes Spent Total Time Spent with Patient: Total time spent is greater than 50% in coordination of care (as documented) at patient's floor/unit and/or counseling patient: 20 minutes Coding Level of Care Code 08712 Subseq Hosp Care Lvl 2 Diagnoses Hypoxia R09.[address] scan of lung R91.8 Interstitial lung disease J84.9 Moderate protein-energy malnutrition E44.0 Time Spent (min) 20
--- NOTE | 2020-03-01 15:35 | Hospitalist Progress Note ---
Date of Service March 01, 2020 Assessment & Plan (1) Acute and chronic respiratory failure with hypoxia: 79yo C male with history of idiopathic interstitial PNA on long-term steroids and home O2 of 4-5L, COPD, diastolic CHF, DM 2, DVT on Coumadin, CKD stage III, essential thrombocytosis, anemia, history of bladder cancer, HTN, hyperlipidemia, RA, aortic stenosis, PAD, here with post-operative hypoxia. Patient had debridement of RLE toe on 02/22. Saturations in the 80's despite being on NC + Facemask. Patient is asymptomatic, hemodynamically stable. CXR read as progressive bibasilar parenchymal infiltrates verses developing pulmonary edematous change - overall appears similar to prior images - patient with history of IIP. Had worsening resp status overnight on 02/22 after receiving 1/2 unit PRBCs for severe anemia CXR and chest CT on 02/22 with interlobular thickening and groundglass pattern within the lungs which favors pulmonary edema but infectious process could appear similar, trace bilateral pleural effusions with bilateral lower lobe airspace opacities which favor atelectasis versus consolidation, and numerous blastic skeletal metastases Received IV lasix and placed on BiPAP and then transition to high flow nasal cannula requiring 70FiO2 today but not short of breath briefly tried oxymask but saturations dropped Appreciate pulmonology recommendations-continued diuresis, CPAP or high flow nasal cannula and wean down to home O2 of 4-6 L nasal cannula. Will start salvage IV steroids Has end-stage pulmonary disease with cachexia. 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 Chest x-ray on 02/26 with progression of interstitial thickening bilateral opacities and small bilateral pleural effusions -continue IV Solu-Medrol 60 mg once daily -Continuous pulse oximetry -Continue supplemental O2 as needed, goal saturations of 88-92% -DuoNebs [id number] -Continue lasix IV 40mg daily, Cr holding at 1.2, diuresing well -Appreciate pulmonology consultation, if breathing worsens then recommend CPAP 5-10 of pressure (2) Osteomyelitis: Patient with history of PAD, DM, osteomyelitis of RLE s/p right foot irrigation and debridement performed here with skin graft. Surgery well tolerated. Patient afebrile, HD stable, non-toxic in appearance MRSA from previous foot wound Now with MSSA from current foot wound resistant to erythromycin and Bactrim -Post operative management, wound care, pain control per primary team -Continue Daptomycin 400mg IV daily given previous MRSA-plan for at least several more weeks now that he is on my service, will plan for ID consult tomorrow (3) Anemia: Chronic. Baseline Hgb 8-9 On hydroxyurea and also with chronic disease anemia hgb down to 7.3 post-op, with INR high at 5.8 No bleeding through foot dressing or anywhere else Received 1/2 unit PRBCs on 02/22 and developed worsening resp failure requiring diuresis and BiPAP Hgb now improved, > 8 for several days, 8.9 today -follow CBC -discussed w/ his Unclaimed Property Officer who recommends holding hydroxyurea for now (4) Aortic valve stenosis: Chronic. - avoidance of overdiuresis (5) Arteriosclerotic cardiovascular disease (ASCVD): Chronic. Stable -Continue ASA, Plavix -Lisinopril on hold due to previous hypotension-continue to hold (6) Benign hypertension: Blood pressure stable at present -Holding Lisinopril/HCTZ due to previous hypotension -Continue to monitor (7) Chronic diastolic CHF (congestive heart failure): With acute on chronic diastolic CHF Patient possibly with mild congestion and volume overload -BNP elevated at 7000 -Continue IV Lasix 40mg daily -Monitor I/Os and weights, want to have net negative fluid balance daily, Lasix working well, negative 3 liters the past three days (8) CKD (chronic kidney disease) stage 3, GFR 30-59 ml/min: Baseline Cr of appx 1.3. Creatinine currently 1.27, stable for three days on Lasix -Avoid nephrotoxins -Renal dosing where needed follow BMP (9) Diabetes mellitus: Chronic. Well controlled with [id number] on 02/04/20 -hold home Glipizide and Metformin -Now with some hyperglycemia with starting IV Solu-Medrol -Diabetic diet -Add Lantus 8 units at bedtime and tighten down NovoLog sliding scale with lower correction factor and carb ratio monitor for hypoglycemia, no episodes post prandial sugars high today, fasting good in the morning will increase carb ratio and correction factor (10) Idiopathic interstitial pneumonia: Chronic. Patient on 4-5L NC at baseline and reports his saturations are typically in the 80's to low 90's. He has seen Drs. Hardin and Landry and Shirley Dailey in the office. -Continue supplemental O2 as above on HFNC currently -Hold home prednisone 3mg po daily. Patient on nursing home chronic steroids - starting IV Solu-Medrol as above (11) Peripheral arterial disease: Chronic. History of stents and angioplasty to bilateral LEs. Patient follows with Dr. Ramos. -Continue ASA 81mg po daily -Continue Plavix 75mg po daily -warfarin as below holding statin while on Dapto (12) History of DVT (deep vein thrombosis): Chronic -Was given Vit K 2.5mg 02/23 to reverse INR 5.8. INR now 1.3. Received 5mg warfarin on 02/24 -Restarted Coumadin 7.5 mg p.o. daily on 02/25 INR 3.4 today (13) Essential thrombocytosis: Chronic Could be due to infection in setting of taking hydroxyurea -follow CBC, plts 166k today -Continue to HOLD Hydroxyurea (14) Rheumatoid arthritis: Chronic -Continue daily Prednisone 3 mg once daily once done with Solu Medrol (15) Leukocytosis: WBC count frequently elevated and more so at 19k yesterday Could be stress response, could be also as he was discontinued from his hydroxyurea recently -Remains afebrile, no new signs of infection -Now on IV Solu-Medrol as of 02/26 which will likely further increase the WBC count -Follow CBC (16) DVT prophylaxis: Coumadin Disposition-remain on PCU for fragile pulmonary status After discussion with patient, he is decided to be a DNR/DNI If not improving, consider palliative consultation Admission and Anticipated Discharge Date Admission Date: February 23, 2020 Subjective patient feels the same as yesterday, breathing is stable does not feel short of breath even when saturations in the 80's eating well d/w pulmonology, continue Solu Medrol and diuresis daily with Lasix, patient responding well d/w ortho, will take patient on my service labs show WBC 19k, Hb 8.9, plts 166k INR 3.5 Cr 1.27 and K 3.6 Review of Systems Review of Systems: All systems reviewed & are unremarkable except as noted in Subjective Respiratory: + dyspnea on exertion; no cough and no wheezing Cardiovascular: + edema; no chest pain Musculoskeletal: + joint pain (foot pain) Physical Exam Constitutional: well developed, + thin, + frail appearing and cooperative; no acute distress Eyes: PERRL, conjunctivae normal, anicteric sclerae ENMT: external ear and nose normal, oropharynx normal Neck: trachea midline, no thyromegaly Respiratory: normal respiratory effort; no respiratory distress and no labored breathing Auscultation: + diminished lung sounds, + crackles and + rhonchi Cardiovascular: RRR, no murmur, no edema Gastrointestinal (Abdomen): normal bowel sounds, soft, nontender, no hep atosplenomegaly Musculoskeletal: no cyanosis or clubbing, extremities motor strength 5/5 Skin: no rashes, warm and dry Neurologic: patellar DTR's 2+ bilat, sensation intact and PERRL, EOMI, accommodation nl, no face palsy, no dysarthria Psychiatric: A+Ox3, euthymic affect Lymphatic: no cervical or axillary lymphadenopathy Results & Data Results & Data ([facility]) Vital Signs (Past 12 Hours) Vital Signs Temp Pulse Pulse Pulse Resp BP Pulse Ox 03/01/20 15:20 74 18 90 03/01/20 15:19 74 18 90 03/01/20 13:20 88 L 03/01/20 13:07 81 20 90 03/01/20 12:17 90 03/01/20 11:32 36.5 C 83 18 119/64 87 L 03/01/20 11:13 72 18 91 03/01/20 08:02 36.7 C 83 20 132/64 92 03/01/20 07:12 67 18 95 03/01/20 03:44 60 20 93 03/01/20 03:36 36.6 C 61 30 H 127/63 93 Laboratory Results Laboratory Results - last 24 hr 02/29/20 02/29/20 03/01/20 16:27 20:22 06:18 WBC RBC Hgb Hct MCV MCH MCHC RDW Std Deviation RDW Coeff of Dru Plt Count Immature Gran % (Auto) Neut % (Auto) Lymph % (Auto) Sibley % (Auto) Eos % (Auto) Baso % (Auto) Neut # (Auto) Lymph # (Auto) Sibley # (Auto) Eos # (Auto) Baso # (Auto) Immature Gran # (Auto) Hypersegmented Neuts Dohle Bodies Hypochromasia Anisocytosis PT 34.6 H INR 3.5 H Sodium Potassium Chloride Carbon Dioxide Anion Gap BUN Creatinine Est Cr Clr Drug Dosing Est GFR ( Amer) Est GFR (Non-Af Amer) BUN/Creatinine Ratio Glucose POC Glucose 270 H 198 H Calcium 03/01/20 03/01/20 03/01/20 06:18 06:18 07:20 WBC 19.74 H RBC 3.38 L Hgb 8.9 L Hct 30.8 L MCV 91.1 MCH 26.3 MCHC 28.9 L RDW Std Deviation 63.4 H RDW Coeff of Dru 19.2 H Plt Count 166 Immature Gran % (Auto) 0.6 Neut % (Auto) 85.5 Lymph % (Auto) 5.7 Sibley % (Auto) 6.3 Eos % (Auto) 1.7 Baso % (Auto) 0.2 Neut # (Auto) 16.89 H Lymph # (Auto) 1.13 L Sibley # (Auto) 1.24 H Eos # (Auto) 0.34 Baso # (Auto) 0.03 Immature Gran # (Auto) 0.11 H Hypersegmented Neuts 1+ Dohle Bodies 1+ Hypochromasia Present Anisocytosis Present PT INR Sodium 140 Potassium 3.6 Chloride 107 Carbon Dioxide 26 Anion Gap 7.0 BUN 37 H Creatinine 1.27 Est Cr Clr Drug Dosing 43.4 Est GFR ( Amer) 61.4 Est GFR (Non-Af Amer) 53.0 BUN/Creatinine Ratio 29.0 H Glucose 110 H POC Glucose 132 H Calcium 8.0 L 03/01/20 11:30 WBC RBC Hgb Hct MCV MCH MCHC RDW Std Deviation RDW Coeff of Dru Plt Count Immature Gran % (Auto) Neut % (Auto) Lymph % (Auto) Sibley % (Auto) Eos % (Auto) Baso % (Auto) Neut # (Auto) Lymph # (Auto) Sibley # (Auto) Eos # (Auto) Baso # (Auto) Immature Gran # (Auto) Hypersegmented Neuts Dohle Bodies Hypochromasia Anisocytosis PT INR Sodium Potassium Chloride Carbon Dioxide Anion Gap BUN Creatinine Est Cr Clr Drug Dosing Est GFR ( Amer) Est GFR (Non-Af Amer) BUN/Creatinine Ratio Glucose POC Glucose 286 H Calcium Medications Administered Current Inpatient Medications Acetaminophen (Tylenol) 1,000 mg PO Q8 RA Stop: 03/24/20 21:59 Last Admin: 03/01/20 13:30 Dose: 1,000 mg Documented by: Al Hydrox/Mg Hydrox/Simethicone (Maalox) 15 ml PO Q4H PRN PRN Reason: Heartburn Stop: 03/24/20 17:26 Albuterol (Duoneb) 3 ml NEB Q4R RA Stop: 03/24/20 18:59 Last Admin: 03/01/20 15:17 Dose: 3 ml Documented by: Aspirin (Ecotrin Ectab) 81 mg PO HS [facility] Stop: 03/24/20 20:59 Last Admin: 02/29/20 21:15 Dose: 81 mg Documented by: Bisacodyl (Dulcolax) 10 mg DE DAILY PRN PRN Reason: Constipation Stop: 03/24/20 17:26 Clopidogrel Bisulfate (Plavix) 75 mg PO PM [facility] Stop: 03/24/20 20:59 Last Admin: 02/29/20 21:15 Dose: 75 mg Documented by: Dextrose (Dextrose 50%) 25 - 50 ml IV UD PRN; Protocol PRN Reason: Hypoglycemia Protocol Stop: 03/24/20 18:22 Last Admin: 02/24/20 21:25 Dose: 50 ml Documented by: Diphenhydramine HCl (Benadryl Capsule) 25 mg PO Q8H PRN PRN Reason: Itching Stop: 03/24/20 17:26 Docusate Sodium (Colace) 100 mg PO BID [facility] Stop: 03/24/20 20:59 Last Admin: 03/01/20 07:37 Dose: 100 mg Documented by: Glucagon (Glucagen) 1 mg SQ UD PRN; Protocol PRN Reason: Hypoglycemia Protocol Stop: 03/24/20 18:22 Glucose (Dex4 Glucose) 4 - 8 tabs PO UD PRN; Protocol PRN Reason: Hypoglycemia Protocol Stop: 03/24/20 18:22 Glucose (Glucose 40%) 15 - 30 gm PO UD PRN; Protocol PRN Reason: Hypoglycemia Protocol Stop: 03/24/20 18:22 Heparin Sodium (Beef Lung) (Heparin Sod 10 Unit/Ml Flush) 5 ml FLUSH PRN PRN PRN Reason: Flush Stop: 03/27/20 00:08 Hydromorphone HCl (Dilaudid) 0.5 mg IV Q4H PRN PRN Reason: Pain or Pre PT Stop: 03/08/20 17:26 Methylprednisolone 60 mg/ (Syringe) 0.96 mls @ 1.5 mls/min IV DAILY [facility] Stop: 03/28/20 10:29 Last Admin: 03/01/20 08:10 Dose: 1.5 mls/min Documented by: Furosemide 40 mg/ Syringe 4 mls @ 4 mls/min IV DAILY [facility] Stop: 03/30/20 08:59 Last Admin: 03/01/20 08:11 Dose: 4 mls/min Documented by: Cefazolin Sodium (Ancef 2000mg) 2,000 mg in 15 mls @ 3.75 mls/min IV Q8H [facility] Stop: 04/12/20 07:59 Last Admin: 03/01/20 08:11 Dose: 3.75 mls/min Documented by: Insulin Aspart (Novolog Flexpen) 0 units SC ACHS [facility] Stop: 03/24/20 20:59 Last Admin: 03/01/20 12:03 Dose: 11 units Documented by: Insulin Glargine (Lantus Solostar Pen) 8 units SC HS [facility] Stop: 03/28/20 20:59 Last Admin: 02/29/20 21:19 Dose: 8 units Documented by: Magnesium Hydroxide (Milk Of Magnesia) 30 ml PO Q6H PRN PRN Reason: Constipation Stop: 03/24/20 17:26 Metoclopramide HCl (Reglan) 10 mg IV Q6H PRN PRN Reason: Nausea And Vomiting Stop: 03/24/20 17:26 Miscellaneous (Carbohydrates For Hypoglycemia) 15 - 30 gm PO UD PRN PRN Reason: Hypoglycemia Protocol Stop: 03/24/20 18:22 Multivitamins (Multivitamin Tab) 1 tab PO QAM [facility] Stop: 03/25/20 08:59 Last Admin: 03/01/20 07:37 Dose: 1 tab Documented by: Mupirocin (Bactroban 2%) 1 appln EXT BID PRN PRN Reason: SKIN BREAKDOWN Stop: 03/24/20 18:58 Naloxone HCl (Narcan) 0.1 mg IV Q5M PRN PRN Reason: Oversedation/Resp Depression Stop: 03/24/20 17:26 Ondansetron HCl (Zofran) 4 mg IV Q6H PRN PRN Reason: Nausea And Vomiting Stop: 03/24/20 17:26 Oxycodone HCl (Roxicodone Immediate Rel) 5 - 10 mg PO Q4H PRN PRN Reason: Pain or Pre PT Stop: 03/08/20 17:26 Last Admin: 02/23/20 18:22 Dose: 5 mg Documented by: Pantoprazole Sodium (Protonix) 40 mg PO QAM RA Stop: 03/28/20 10:59 Last Admin: 03/01/20 07:37 Dose: 40 mg Documented by: Prednisone (Prednisone) 3 mg PO QPM [facility] Stop: 03/24/20 20:59 Last Admin: 02/26/20 21:17 Dose: 3 mg Documented by: Sennosides (Senokot) 17.2 mg PO HS [facility] Stop: 03/24/20 20:59 Last Admin: 02/29/20 21:14 Dose: 17.2 mg Documented by: Tamsulosin HCl (Flomax) 0.4 mg PO QAM PRN PRN Reason: unable to void Stop: 03/24/20 17:26 Tramadol HCl (Ultram) 50 - 100 mg PO Q4H PRN PRN Reason: Pain & Pre PT Stop: 03/24/20 17:26 Warfarin Sodium (Coumadin) 7.5 mg PO DAILY@1600 [facility] Stop: 03/27/20 15:59 Last Admin: 02/29/20 17:29 Dose: 7.5 mg Documented by: PG Care Time/CCT Total # of Minutes Spent Total Time Spent with Patient: Total time spent is greater than 50% in coordination of care (as documented) at patient's floor/unit and/or counseling patient: Coding Level of Care Code 49171 Subseq Hosp Care Lvl 3 Diagnoses Acute and chronic respiratory failure with hypoxia J96.21 Osteomyelitis M86.9 Laterality: right Osteomyelitis location: foot Osteomyelitis type: unspecified type Anemia D64.9 Anemia type: unspecified type Aortic valve stenosis I35.0 Cardiac valve disease etiology: etiology unspecified Arteriosclerotic cardiovascular disease (ASCVD) I25.10 Benign hypertension I10 Chronic diastolic CHF (congestive heart failure) I50.32 CKD (chronic kidney disease) stage 3, GFR 30-59 ml/min N18.3 Diabetes mellitus E11.9 Diabetes mellitus complication status: without complication Diabetes mellitus nursing home insulin use: without intermodal truck driver use Diabetes mellitus type: type 2 Idiopathic interstitial pneumonia J84.111 Peripheral arterial disease I73.9 History of DVT (deep vein thrombosis) Z86.718 Essential thrombocytosis D47.3 Rheumatoid arthritis M06.9 Rheumatoid arthritis location: unspecified site Rheumatoid factor presence: unspecified presence Leukocytosis D72.829 DVT prophylaxis Z29.9 (1) Rheumatoid arthritis Rheumatoid arthritis location: unspecified site Rheumatoid factor presence: unspecified presence Qualified Code(s): M06.9 - Rheumatoid arthritis, unspec ified (2) Diabetes mellitus Diabetes mellitus complication status: without complication Diabetes mellitus nursing home insulin use: without intermodal truck driver use Diabetes mellitus type: type 2 Qualified Code(s): E11.9 - Type 2 diabetes mellitus without complications (3) Anemia Anemia type: unspecified type Qualified Code(s): D64.9 - Anemia, unspecified (4) Aortic valve stenosis Cardiac valve disease etiology: etiology unspecified Qualified Code(s): I35.0 - Nonrheumatic aortic (valve) stenosis (5) Osteomyelitis Laterality: right Osteomyelitis location: foot Osteomyelitis type: unspecified type Qualified Code(s): M86.9 - Osteomyelitis, unspecified
[2020-03-01] MEDS: WARFARIN SOD 7.5 MG TAB PO SCH (16:39)
[2020-03-01] MEDS: SENNA 8.6 MG TAB PO SCH (20:14)
[2020-03-01] MEDS: CLOPIDOGREL BISULFATE 75 MG TAB PO SCH (20:14)
[2020-03-01] MEDS: ASPIRIN 81 MG ECTAB PO SCH (20:14)
[2020-03-01] MEDS: INSULIN GLARGINE SOLOSTAR 100 UNITS/ML 3 ML PEN SC SCH (20:15)
[2020-03-02] MEDS: CEFAZOLIN 2000MG 2,000 MG/15 ML SYR IV SCH ×4 (00:09→23:38)
[2020-03-02] MEDS: ALBUT/IPRATROP 3MG/0.5MG NEB 3 ML VIAL NEB SCH ×6 (03:59→23:30)
[2020-03-02] MEDS: ACETAMINOPHEN 500 MG TAB PO SCH ×3 (05:11→21:08)
[2020-03-02] MEDS: FUROSEMIDE 40 MG in SYRINGE 0 ML IV SCH (09:47)
[2020-03-02] MEDS: methylPREDNISolone 60 MG in SYRINGE 0 ML IV SCH (09:47)
[2020-03-02] MEDS: MULTIVITAMIN TAB PO SCH (09:48)
[2020-03-02] MEDS: DOCUSATE SODIUM 100 MG CAP PO SCH ×2 (09:48→21:03)
[2020-03-02] MEDS: INSULIN ASPART 100 UNITS/ML 3 ML PEN SC SCH ×4 (09:48→21:04)
[2020-03-02] MEDS: PANTOprazole 40 MG TAB PO SCH (09:48)
--- NOTE | 2020-03-02 15:42 | Pulmonology Progress Note ---
Date of Service March 02, 2020 Assessment & Plan (1) Hypoxia: Impression: 79-year-old male with chronic hypoxemic respiratory failure and oxygen requirement of 4 L at baseline presenting now status post I&D of osteomyelitis of right toe. Patient developed hypoxemic respiratory failure in conjunction with receiving some packed cells. Differential diagnosis is broad and would include transfusion associated circulatory overload, transfusion associated lung injury, with exacerbation of existing ILD felt to be less likely. Right to left shunting due to a PFO or ASD is certainly possible. The patient had an echocardiogram performed last year which demonstrated no right to left shunt at that time. Recommendations: 1. Patient seems to be improved somewhat with decrease in oxygen requirements. Currently on high flow oxygen at a rate of 30 L/min with an FiO2 of 60%. Continue to titrate oxygen as tolerated. Goal would be to get patient back to his baseline of 4 L/min by nasal cannula. Procalcitonin was 0.09 which is negative. Patient did respond to diuretics. We will continue with diuretics as tolerated following renal function closely. Would try and target an oxygen saturation 85 to 88%. 2. History of interstitial lung disease: Patient currently receiving 60 mg of IV Solu-Medrol for salvage therapy at this point. Okay to transition to prednisone 40 mg a day with plans to decrease by 5 mg every week and follow-up i n the outpatient setting with Dr. Hardin. Repeat CXR in AM. 3. Not a good candidate for surgical lung biopsy or bronchoscopy as this is unlikely to yield much in this fragile elderly patient We will continue to follow with you. (2) Abnormal CT scan of lung: (3) Interstitial lung disease: (4) Moderate protein-energy malnutrition: Admission and Anticipated Discharge Date Admission Date: February 23, 2020 Subjective No complaint no complaints this morning. Oxygen weaned down to 60% and 35L. Denies chest pain shortness of breath or cough. Remains essentially bedbound due to his foot. Review of Systems Review of Systems: Unchanged from prior Physical Exam Constitutional: WD/WN, vitals as above Neck: trachea midline, no thyromegaly Respiratory: normal respiratory effort, lungs clear to auscultation Cardiovascular: RRR, no murmur, no edema Gastrointestinal (Abdomen): normal bowel sounds, soft, nontender, no hepatosplenomegaly Musculoskeletal: Extremities: extremities normal to inspection Skin: no rashes, warm and dry Lymphatic: no cervical lymphadenopathy Results & Data Results & Data ([facility]) Vital Signs (Past 12 Hours) Vital Signs Temp Pulse Pulse Pulse Resp BP Pulse Ox 03/02/20 15:31 36.5 C 74 19 115/60 91 03/02/20 15:14 83 16 92 03/02/20 11:31 68 16 94 03/02/20 11:06 36.7 C 72 20 121/57 L 88 L 03/02/20 07:32 65 03/02/20 07:14 36.7 C 66 22 118/54 L 96 03/02/20 07:12 68 16 92 03/02/20 04:01 68 16 98 03/02/20 03:59 64 16 98 03/02/20 03:54 36.5 C 61 19 154/78 H 99 Laboratory Results 03/01/20 06:18 03/01/20 06:18 PG Care Time/CCT Total # of Minutes Spent Total Time Spent with Patient: Total time spent is greater than 50% in coordination of care (as documented) at patient's floor/unit and/or counseling patient: Coding Level of Care Code 16992 Subseq Hosp Care Lvl 2 Diagnoses Hypoxia R09.[address] scan of lung R91.8 Interstitial lung disease J84.9 Moderate protein-energy malnutrition E44.0
--- NOTE | 2020-03-02 16:13 | Hospitalist Progress Note ---
Date of Service March 02, 2020 Assessment & Plan (1) Acute and chronic respiratory failure with hypoxia: 79yo C male with history of idiopathic interstitial PNA on long-term steroids and home O2 of 4-5L, COPD, diastolic CHF, DM 2, DVT on Coumadin, CKD stage III, essential thrombocytosis, anemia, history of bladder cancer, HTN, hyperlipidemia, RA, aortic stenosis, PAD, here with post-operative hypoxia. Patient had debridement of RLE toe on 02/22. Saturations in the 80's despite being on NC + Facemask. Patient is asymptomatic, hemodynamically stable. CXR read as progressive bibasilar parenchymal infiltrates verses developing pulmonary edematous change - overall appears similar to prior images - patient with history of IIP. Had worsening resp status overnight on 02/22 after receiving 1/2 unit PRBCs for severe anemia CXR and chest CT on 02/22 with interlobular thickening and groundglass pattern within the lungs which favors pulmonary edema but infectious process could appear similar, trace bilateral pleural effusions with bilateral lower lobe airspace opacities which favor atelectasis versus consolidation, and numerous blastic skeletal metastases Received IV lasix and placed on BiPAP and then transition to high flow nasal cannula requiring 60 FiO2 today, increased flow to 35L/min briefly tried oxymask but saturations dropped on 03/01 Appreciate pulmonology recommendations-continued diuresis, CPAP or high flow nasal cannula and wean down to home O2 of 4-6 L nasal cannula. Will start salvage IV steroids Has end-stage pulmonary disease with cachexia. 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 Chest x-ray on 02/26 with progression of interstitial thickening bilateral opacities and small bilateral pleural effusions -continue IV Solu-Medrol 60 mg once daily -Continuous pulse oximetry -Continue supplemental O2 as needed, goal saturations of 88% -DuoNebs [id number] -Continue lasix IV 40mg daily, Cr holding, making a lot of urine -Appreciate pulmonology consultation, if breathing worsens then recommend CPAP 5-10 of pressure patient states he would not want intubated (2) Osteomyelitis: Patient with history of PAD, DM, osteomyelitis of RLE s/p right foot irrigation and debridement performed here with skin graft. Surgery well tolerated. Patient afebrile, HD stable, non-toxic in appearance MRSA from previous foot wound Now with MSSA from current foot wound resistant to erythromycin and Bactrim -Post operative management, wound care, pain control per primary team -Continue Daptomycin 400mg IV daily given previous MRSA-plan for at least several more weeks now that he is on my service, will plan for ID consult, still pending at this time (3) Anemia: Chronic. Baseline Hgb 8-9 On hydroxyurea and also with chronic disease anemia hgb down to 7.3 post-op, with INR high at 5.8 No bleeding through foot dressing or anywhere else Received 1/2 unit PRBCs on 02/22 and developed worsening resp failure requiring diuresis and BiPAP Hgb now improved, > 8 for several days, 8.9 03/01 -follow CBC -discussed w/ his Transportation Escort who recommends holding hydroxyurea for now (4) Aortic valve stenosis: Chronic. - avoidance of overdiuresis (5) Arteriosclerotic cardiovascular disease (ASCVD): Chronic. Stable -Continue ASA, Plavix -Lisinopril on hold due to previous hypotension-continue to hold (6) Benign hypertension: Blood pressure stable at present -Holding Lisinopril/HCTZ due to previous hypotension -Continue to monitor (7) Chronic diastolic CHF (congestive heart failure): With acute on chronic diastolic CHF Patient possibly with mild congestion and volume overload -BNP elevated at 7000 -Continue IV Lasix 40mg daily -Monitor I/Os and weights, want to have net negative fluid balance daily, Lasix working well, negative 4 liters the past 4 days (8) CKD (chronic kidney disease) stage 3, GFR 30-59 ml/min: Baseline Cr of appx 1.3. Creatinine currently 1.27, stable for three days on Lasix -Avoid nephrotoxins -Renal dosing where needed follow BMP (9) Diabetes mellitus: Chronic. Well controlled with PcoQ6H=4 on 02/04/20 -hold home Glipizide and Metformin -Now with some hyperglycemia with starting IV Solu-Medrol -Diabetic diet -Add Lantus 8 units at bedtime and tighten down NovoLog sliding scale with lower correction factor and carb ratio monitor for hypoglycemia, no episodes post prandial sugars high 03/01, fasting good in the morning will increase carb ratio and correction factor (10) Idiopathic interstitial pneumonia: Chronic. Patient on 4-5L NC at baseline and reports his saturations are typically in the 80's to low 90's. He has seen Drs. Hardin and Landry and Shirley Dailey in the office. -Continue supplemental O2 as above on HFNC currently -Hold home prednisone 3mg po daily. Patient on buttermaker continuous churn chronic steroids - starting IV Solu-Medrol as above (11) Peripheral arterial disease: Chronic. History of stents and angioplasty to bilateral LEs. Patient follows with Dr. Ramos. -Continue ASA 81mg po daily -Continue Plavix 75mg po daily -warfarin as below holding statin while on Dapto (12) History of DVT (deep vein thrombosis): Chronic -Was given Vit K 2.5mg 02/23 to reverse INR 5.8. INR now 1.3. Received 5mg warfarin on 02/24 -Restarted Coumadin 7.5 mg p.o. daily on 02/25 INR 3.4 03/01 (13) Essential thrombocytosis: Chronic Could be due to infection in setting of taking hydroxyurea -follow CBC, plts 166k 03/01 -Continue to HOLD Hydroxyurea (14) Rheumatoid arthritis: Chronic -Continue daily Prednisone 3 mg once daily once done with Solu Medrol (15) Leukocytosis: WBC count frequently elevated and more so at 19k yesterday Could be stress response, could be also as he was discontinued from his hydroxyurea recently -Remains afebrile, no new signs of infection -Now on IV Solu-Medrol as of 02/26 which will likely further increase the WBC count -Follow CBC (16) DVT prophylaxis: Coumadin Disposition-remain on PCU for fragile pulmonary status After discussion with patient, he is decided to be a DNR/DNI If not improving, consider palliative consultation Admission and Anticipated Discharge Date Admission Date: February 23, 2020 Subjective no major changes, patient feels well no dyspnea still on HFNC with 35L, 60% FiO2 appreciate note from Dr. Coy placed consult with [facility], await antibiotic recommendation d/w , while he is on HFNC it is difficult to find a SNF Review of Systems Review of Systems: All systems reviewed & are unremarkable except as noted in Subjective Constitutional: + fatigue and + weakness; no fever Respiratory: + dyspnea on exertion; no cough and no dyspnea Cardiovascular: no chest pain and no edema Gastrointestinal: no abdominal pain, no nausea, no vomiting, no constipation and no diarrhea/loose stools Physical Exam Constitutional: well developed, + thin, + frail appearing and cooperative; no acute distress Eyes: PERRL, conjunctivae normal, anicteric sclerae ENMT: external ear and nose normal, oropharynx normal Neck: trachea midline, no thyromegaly Respiratory: normal respiratory effort; no respiratory distress and no labored breathing Auscultation: + diminished lung sounds, + crackles and + rhonchi Cardiovascular: RRR, no murmur, no edema Gastrointestinal (Abdomen): normal bowel sounds, soft, nontender, no hepatosplenomegaly Musculoskeletal: no cyanosis or clubbing, extremities motor strength 5/5 Skin: no rashes, warm and dry Neurologic: patellar DTR's 2+ bilat, sensation intact and PERRL, EOMI, accommodation nl, no face palsy, no dysarthria Psychiatric: A+Ox3, euthymic affect Lymphatic: no cervical or axillary lymphadenopathy Results & Data Results & Data ([facility]) Vital Signs (Past 12 Hours) Vital Signs Temp Pulse Pulse Pulse Resp BP Pulse Ox 03/02/20 15:31 36.5 C 74 19 115/60 91 03/02/20 15:14 83 16 92 03/02/20 11:31 68 16 94 03/02/20 11:06 36.7 C 72 20 121/57 L 88 L 03/02/20 07:32 65 03/02/20 07:14 36.7 C 66 22 118/54 L 96 03/02/20 07:12 68 16 92 Laboratory Results Laboratory Results - last 24 hr 02/23/20 03/01/20 03/01/20 18:38 16:18 19:59 POC Glucose 266 H 175 H Crossmatch See Detail 03/02/20 03/02/20 07:13 11:03 POC Glucose 135 H 286 H Crossmatch Medications Administered Current Inpatient Medications Acetaminophen (Tylenol) 1,000 mg PO Q8 RA Stop: 03/24/20 21:59 Last Admin: 03/02/20 11:20 Dose: Not Given Documented by: Al Hydrox/Mg Hydrox/Simethicone (Maalox) 15 ml PO Q4H PRN PRN Reason: Heartburn Stop: 03/24/20 17:26 Albuterol (Duoneb) 3 ml NEB Q4R RA Stop: 03/24/20 18:59 Last Admin: 03/02/20 15:14 Dose: 3 ml Documented by: Aspirin (Ecotrin Ectab) 81 mg PO HS RA Stop: 03/24/20 20:59 Last Admin: 03/01/20 20:14 Dose: 81 mg Documented by: Bisacodyl (Dulcolax) 10 mg UT DAILY PRN PRN Reason: Constipation Stop: 03/24/20 17:26 Clopidogrel Bisulfate (Plavix) 75 mg PO PM RA Stop: 03/24/20 20:59 Last Admin: 03/01/20 20:14 Dose: 75 mg Documented by: Dextrose (Dextrose 50%) 25 - 50 ml IV UD PRN; Protocol PRN Reason: Hypoglycemia Protocol Stop: 03/24/20 18:22 Last Admin: 02/24/20 21:25 Dose: 50 ml Documented by: Diphenhydramine HCl (Benadryl Capsule) 25 mg PO Q8H PRN PRN Reason: Itching Stop: 03/24/20 17:26 Docusate Sodium (Colace) 100 mg PO BID RA Stop: 03/24/20 20:59 Last Admin: 03/02/20 09:48 Dose: 100 mg Documented by: Glucagon (Glucagen) 1 mg SQ UD PRN; Protocol PRN Reason: Hypoglycemia Protocol Stop: 03/24/20 18:22 Glucose (Dex4 Glucose) 4 - 8 tabs PO UD PRN; Protocol PRN Reason: Hypoglycemia Protocol Stop: 03/24/20 18:22 Glucose (Glucose 40%) 15 - 30 gm PO UD PRN; Protocol PRN Reason: Hypoglycemia Protocol Stop: 03/24/20 18:22 Heparin Sodium (Beef Lung) (Heparin Sod 10 Unit/Ml Flush) 5 ml FLUSH PRN PRN PRN Reason: Flush Stop: 03/27/20 00:08 Hydromorphone HCl (Dilaudid) 0.5 mg IV Q4H PRN PRN Reason: Pain or Pre PT Stop: 03/08/20 17:26 Furosemide 40 mg/ Syringe 4 mls @ 4 mls/min IV DAILY RA Stop: 03/30/20 08:59 Last Admin: 03/02/20 09:47 Dose: 4 mls/min Documented by: Cefazolin Sodium (Ancef 2000mg) 2,000 mg in 15 mls @ 3.75 mls/min IV Q8H [facility] Stop: 04/12/20 07:59 Last Admin: 03/02/20 09:47 Dose: 3.75 mls/min Documented by: Insulin Aspart (Novolog Flexpen) 0 units SC ACHS [facility] Stop: 03/24/20 20:59 Last Admin: 03/02/20 11:17 Dose: 14 units Documented by: Insulin Glargine (Lantus Solostar Pen) 8 units SC HS [facility] Stop: 03/28/20 20:59 Last Admin: 03/01/20 20:15 Dose: 8 units Documented by: Magnesium Hydroxide (Milk Of Magnesia) 30 ml PO Q6H PRN PRN Reason: Constipation Stop: 03/24/20 17:26 Metoclopramide HCl (Reglan) 10 mg IV Q6H PRN PRN Reason: Nausea And Vomiting Stop: 03/24/20 17:26 Miscellaneous (Carbohydrates For Hypoglycemia) 15 - 30 gm PO UD PRN PRN Reason: Hypoglycemia Protocol Stop: 03/24/20 18:22 Multivitamins (Multivitamin Tab) 1 tab PO [facility] Stop: 03/25/20 08:59 Last Admin: 03/02/20 09:48 Dose: 1 tab Documented by: Mupirocin (Bactroban 2%) 1 appln EXT BID PRN PRN Reason: SKIN BREAKDOWN Stop: 03/24/20 18:58 Naloxone HCl (Narcan) 0.1 mg IV Q5M PRN PRN Reason: Oversedation/Resp Depression Stop: 03/24/20 17:26 Ondansetron HCl (Zofran) 4 mg IV Q6H PRN PRN Reason: Nausea And Vomiting Stop: 03/24/20 17:26 Oxycodone HCl (Roxicodone Immediate Rel) 5 - 10 mg PO Q4H PRN PRN Reason: Pain or Pre PT Stop: 03/08/20 17:26 Last Admin: 02/23/20 18:22 Dose: 5 mg Documented by: Pantoprazole Sodium (Protonix) 40 mg PO QAM [facility] Stop: 03/28/20 10:59 Last Admin: 03/02/20 09:48 Dose: 40 mg Documented by: Prednisone (Prednisone) 3 mg PO QPM [facility] Stop: 03/24/20 20:59 Last Admin: 02/26/20 21:17 Dose: 3 mg Documented by: Prednisone (Prednisone) 20 mg PO BID [facility] Stop: 04/01/20 20:59 Sennosides (Senokot) 17.2 mg PO HS [facility] Stop: 03/24/20 20:59 Last Admin: 03/01/20 20:14 Dose: 17.2 mg Documented by: Tamsulosin HCl (Flomax) 0.4 mg PO QAM PRN PRN Reason: unable to void Stop: 03/24/20 17:26 Tramadol HCl (Ultram) 50 - 100 mg PO Q4H PRN PRN Reason: Pain & Pre PT Stop: 03/24/20 17:26 Warfarin Sodium (Coumadin) 7.5 mg PO DAILY@1600 [facility] Stop: 03/27/20 15:59 Last Admin: 03/01/20 16:39 Dose: 7.5 mg Documented by: PG Care Time/CCT Total # of Minutes Spent Total Time Spent with Patient: Total time spent is greater than 50% in coordination of care (as documented) at patient's floor/unit and/or counseling patient: Coding Level of Care Code 83044 Subseq Hosp Care Lvl 2 Diagnoses Acute and chronic respiratory failure with hypoxia J96.21 Osteomyelitis M86.9 Laterality: right Osteomyelitis location: foot Osteomyelitis type: unspecified type Anemia D64.9 Anemia type: unspecified type Aortic valve stenosis I35.0 Cardiac valve disease etiology: etiology unspecified Arteriosclerotic cardiovascular disease (ASCVD) I25.10 Benign hypertension I10 Chronic diastolic CHF (congestive heart failure) I50.32 CKD (chronic kidney disease) stage 3, GFR 30-59 ml/min N18.3 Diabetes mellitus E11.9 Diabetes mellitus complication status: without complication Diabetes mellitus buttermaker continuous churn insulin use: without fpc use Diabetes mellitus type: type 2 Idiopathic interstitial pneumonia J84.111 Peripheral arterial disease I73.9 History of DVT (deep vein thrombosis) Z86.718 Essential thrombocytosis D47.3 Rheumatoid arthritis M06.9 Rheumatoid arthritis location: unspecified site Rheumatoid factor presence: unspecified presence Leukocytosis D72.829 DVT prophylaxis Z29.9 (1) Rheumatoid arthritis Rheumatoid arthritis location: unspecified site Rheumatoid factor presence: unspecified presence Qualified Code(s): M06.9 - Rheumatoid arthritis, unspecified (2) Diabetes mellitus Diabetes mellitus complication status: without complication Diabetes mellitus buttermaker continuous churn insulin use: without fpc use Diabetes mellitus type: type 2 Qualified Code(s): E11.9 - Type 2 diabetes mellitus without complications (3) Anemia Anemia type: unspecified type Qualified Code(s): D64.9 - Anemia, unspecified (4) Aortic valve stenosis Cardiac valve disease etiology: etiology unspecified Qualified Code(s): I35.0 - Nonrheumatic aortic (valve) stenosis (5) Osteomyelitis Laterality: right Osteomyelitis location: foot Osteomyelitis type: unspecified type Qualified Code(s): M86.9 - Osteomyelitis, unspecified
[2020-03-02] MEDS: WARFARIN SOD 7.5 MG TAB PO SCH (16:42)
[2020-03-02] MEDS: CLOPIDOGREL BISULFATE 75 MG TAB PO SCH (21:03)
[2020-03-02] MEDS: ASPIRIN 81 MG ECTAB PO SCH (21:03)
[2020-03-02] MEDS: predniSONE 20 MG TAB PO SCH (21:04)
[2020-03-02] MEDS: SENNA 8.6 MG TAB PO SCH (21:04)
[2020-03-02] MEDS: INSULIN GLARGINE SOLOSTAR 100 UNITS/ML 3 ML PEN SC SCH (21:08)
[2020-03-03] MEDS: ALBUT/IPRATROP 3MG/0.5MG NEB 3 ML VIAL NEB SCH ×6 (03:14→23:18)
[2020-03-03 05:58] LABS: Hematocrit (blood only) 29.4 % (42-52); Hemoglobin 8.3 g/dL (14.0-18.0); Mean Corpuscular Hemoglobin 25.9 pg (25-34); Mean Corpuscular Hgb Conc 28.2 g/dL (32-36); Mean Corpuscular Volume 91.9 fL (80-100); Platelet Count 253 K/uL (130-400); RDW Coefficient of Variation 18.7 % (11.5-14.5); RDW Standard Deviation 62.8 fL (36.4-46.3); White Blood Count 22.11 K/uL (4.8-10.8)
[2020-03-03 06:07] LABS: INR 3.2 (0.9-1.1); Prothrombin Time 31.9 Seconds (9.0-12.0)
[2020-03-03 06:21] LABS: Albumin Level 2.4 gm/dl (3.4-5.0); BUN Creatinine Ratio 37.4 (10-20); Creatinine Clr Calc Pharmacy 43.8 ml/min; Est GFR (Non-African American) 53.5; Potassium 3.9 mmol/L (3.5-5.1)
[2020-03-03 06:24] LABS: Albumin Globulin Ratio 0.7 (0.9-2); Bilirubin,Total 0.3 mg/dl (0.2-1); Globulin 3.5 gm/dl (2.5-4.0); Total Protein 5.9 gm/dl (6.4-8.2)
[2020-03-03] MEDS: ACETAMINOPHEN 500 MG TAB PO SCH ×3 (06:26→20:16)
[2020-03-03 06:41] LABS: Basophils # (auto) 0.01 K/uL (0-0.2); Eosinophils # (auto) 0.02 K/uL (0-0.5); Eosinophils % (auto) 0.1 %; Immature Granulocytes # (auto) 0.15 K/uL (0.00-0.02); Immature Granulocytes % (auto) 0.7 %; Lymphocytes # (auto) 0.95 K/uL (1.2-3.4); Lymphocytes % (auto) 4.3 %; Monocytes # (auto) 0.95 K/uL (0.11-0.59); Monocytes % (auto) 4.3 %; Neutrophils # (auto) 20.03 K/uL (1.4-6.5); Neutrophils % (auto) 90.6 %; Polychromasia 1+; Tear Drop Cells 1+
--- NOTE | 2020-03-03 07:33 | XRay Report ---
XR chest 1V portable CLINICAL HISTORY: Respiratory failure. COMPARISON STUDY: Chest CT February 23, 2020 and chest radiograph February 27, 2020. FINDINGS: Right PICC is in place. Bilateral pleural effusions have improved since exam of February 26 20. Interstitial thickening and bilateral opacities have improved. There are persistent bibasilar opa cities. Cardiomediastinal silhouette is stable. IMPRESSION: 1. Interval improvement in interstitial thickening and bilateral opacities since exam of February 26 0. 2. Interval improvement in small bilateral pleural effusions. ACT 112: Negative or not required by law. Electronically signed by: Andi Oliver M.D. 03/03/2020 7:31 AM
[2020-03-03] MEDS: INSULIN ASPART 100 UNITS/ML 3 ML PEN SC SCH ×4 (08:09→20:59)
[2020-03-03] MEDS: DOCUSATE SODIUM 100 MG CAP PO SCH ×2 (08:10→20:17)
[2020-03-03] MEDS: MULTIVITAMIN TAB PO SCH (08:11)
[2020-03-03] MEDS: predniSONE 20 MG TAB PO SCH ×2 (08:11→20:17)
[2020-03-03] MEDS: PANTOprazole 40 MG TAB PO SCH (08:11)
[2020-03-03] MEDS: CEFAZOLIN 2000MG 2,000 MG/15 ML SYR IV SCH ×2 (08:12→16:52)
[2020-03-03] MEDS: FUROSEMIDE 40 MG in SYRINGE 0 ML IV SCH ×2 (08:12→16:52)
--- NOTE | 2020-03-03 08:36 | Pulmonology Progress Note ---
Date of Service March 03, 2020 Assessment & Plan (1) Hypoxia: Impression: 79-year-old male with chronic hypoxemic respiratory failure and oxygen requirement of 4 L at baseline presenting now status post I&D of osteomyelitis of right toe. Patient developed hypoxemic respiratory failure in conjunction with receiving some packed cells. Differential diagnosis is broad and would include transfusion associated circulatory overload, transfusion associated lung injury, or exacerbation of existing ILD. Right to left shunting due to a PFO or ASD is certainly possible. The patient had an echocardiogram performed last year which demonstrated no right to left shunt at that time. Patient has been undergoing diuresis and was empirically placed on steroids to see if there was an inflammatory component. He has had slow progress but his x- ray does look better. Recommendations: 1. Patient seems to be improved somewhat with decrease in oxygen requirements. Currently on high flow oxygen at a rate of 30 L/min with an FiO2 of 60%. Continue to titrate oxygen as tolerated. Would try and target an oxygen saturation 85 to 88%. Patient needs to get out of bed and mobilize. He is nonweightbearing but this should not preclude him sitting in a chair. Continue aggressive pulmonary toilet including incentive spirometry and will add flutter valve to see if this can help with atelectatic changes in the bases. He is improved with diuresis and will increase Lasix to 40 mg IV twice daily. D aptomycin can cause a pulmonary infiltrate syndrome, however the patient never demonstrated eosinophilia and this is felt to be somewhat less likely. 2. History of interstitial lung disease: Patient currently on prednisone 40 mg a day. Unclear if this is having a benefit but it would proceed with rapid tapering especially given his infectious complications. 3. Not a good candidate for surgical lung biopsy or bronchoscopy as this is unlikely to yield much in this fragile elderly patient We will continue to follow with you. (2) Abnormal CT scan of lung: (3) Interstitial lung disease: (4) Moderate protein-energy malnutrition: Admission and Anticipated Discharge Date Admission Date: February 23, 2020 Subjective Seen and examined. EMR reviewed. He feels about the same. He remains on 60% and 30 L high flow with sats in the mid to high 80s. Review of Systems Review of Systems: Unchanged from prior Physical Exam Constitutional: WD/WN, vitals as above Neck: trachea midline, no thyromegaly Respiratory: normal respiratory effort, lungs clear to auscultation Cardiovascular: RRR, no murmur, no edema Gastrointestinal (Abdomen): normal bowel sounds, soft, nontender, no hepatosplenomegaly Musculoskeletal: Extremities: extremities normal to inspection Skin: no rashes, warm and dry Lymphatic: no cervical lymphadenopathy Results & Data Results & Data ([facility]) Vital Signs (Past 12 Hours) Vital Signs Temp Pulse Pulse Pulse Resp BP Pulse Ox 03/03/20 07:26 66 18 92 03/03/20 07:18 36.7 C 67 18 130/60 92 03/03/20 04:39 36.8 C 70 19 132/64 90 03/03/20 03:15 63 14 90 03/02/20 23:59 69 03/02/20 23:39 37.0 C 66 18 129/62 93 03/02/20 23:31 70 14 87 L Laboratory Results 03/03/20 05:31 03/03/20 05:31 Diagnostic Findings Chest x-ray today was independently reviewed. There is general improvement in the coarse airspace opacity noted from the , especially in the right lung. Left lung remains with some hazy opacities and basilar atelectatic changes. PG Care Time/CCT Total # of Minutes Spent Total Time Spent with Patient: Total time spent is greater than 50% in coordination of care (as documented) at patient's floor/unit and/or counseling patient: Coding Level of Care Code 19667 Subseq Hosp Care Lvl 2 Diagnoses Hypoxia R09.[address] scan of lung R91.8 Interstitial lung disease J84.9 Moderate protein-energy malnutrition E44.0
--- NOTE | 2020-03-03 09:38 | Orthopedic Progress Note ---
Date of Service March 03, 2020 Assessment & Plan (1) Ulcer of right foot: POD #9 s/p Right foot irrigation and debridement of fifth metatarsal head ulcer, Right foot irrigation and debridement of lateral distal ulcer including skin, fascia, dermis and joint capsule of fifth metatarsal head Application of TheraSkin split thickness skin allograft to fifth metatarsal head region, right foot Cultures growing Staph. With the recent operative cultures showing MSSA, his antibiotic was changed to cefazolin 2 g IV every 8 hours. He will need to continue this for another 4 to 6 weeks of treatment. If he continues to fail down the road, surgical resection of the metatarsal head and toe may be warranted. NWB RLE at all times. Dressing changes qod--dressing changed today with adaptic cut to the size of the ulceration to avoid maceration around the wound. Appreciate medicine and pulmonary input. D/C planning-- Patient requesting [place]. Plan for transfer when medically stable. Admission and Anticipated Discharge Date Admission Date: February 23, 2020 Subjective No right foot complaints. States the dressing was changed in the past day or 2. Using the heel to transfer to the bedside chair. Physical Exam Constitutional: well developed and well nourished; no acute distress ENMT: external ear and nose normal, oropharynx normal Neck: trachea midline, no thyromegaly Cardiovascular: Rate/Rhythm: regular rate and regular rhythm Gastrointestinal (Abdomen): normal bowel sounds, soft, nontender, no hepatos plenomegaly Musculoskeletal: Right foot: Lateral 5th MTP ulceration with continued [place] split thickness skin graft in place. June in place. There is some capsular tissue visible. No erythema. No drainage. Neurologic: normal touch/pain/proprioception Psychiatric: A+Ox3, euthymic affect Lymphatic: no cervical or axillary lymphadenopathy Results & Data ([facility]) Vital Signs (Past 12 Hours) Vital Signs Temp Pulse Pulse Pulse Resp BP Pulse Ox 03/03/20 07:26 66 18 92 03/03/20 07:18 36.7 C 67 18 130/60 92 03/03/20 04:39 36.8 C 70 19 132/64 90 03/03/20 03:15 63 14 90 03/02/20 23:59 69 03/02/20 23:39 37.0 C 66 18 129/62 93 03/02/20 23:31 70 14 87 L
--- NOTE | 2020-03-03 16:21 | Hospitalist Progress Note ---
Date of Service March 03, 2020 Assessment & Plan (1) Acute and chronic respiratory failure with hypoxia: 79yo C male with history of idiopathic interstitial PNA on long-term steroids and home O2 of 4-5L, COPD, diastolic CHF, DM 2, DVT on Coumadin, CKD stage III, essential thrombocytosis, anemia, history of bladder cancer, HTN, hyperlipidemia, RA, aortic stenosis, PAD, here with post-operative hypoxia. Patient had debridement of RLE toe on 02/22. Saturations in the 80's despite being on NC + Facemask. Patient is asymptomatic, hemodynamically stable. CXR read as progressive bibasilar parenchymal infiltrates verses developing pulmonary edematous change - overall appears similar to prior images - patient with history of IIP. Had worsening resp status overnight on 02/22 after receiving 1/2 unit PRBCs for severe anemia CXR and chest CT on 02/22 with interlobular thickening and groundglass pattern within the lungs which favors pulmonary edema but infectious process could appear similar, trace bilateral pleural effusions with bilateral lower lobe airspace opacities which favor atelectasis versus consolidation, and numerous blastic skeletal metastases Received IV lasix and placed on BiPAP and then transition to high flow nasal cannula titrated to oxymask today (03/03), making progress, transferred to medical floor -change to Prednisone 20mg BID with plans for quick taper -Continuous pulse oximetry -Continue supplemental O2 as needed, goal saturations of 88% -DuoNebs [id number], pulmonary toilet with incentive spirometry and flutter valve -Continue lasix IV 40mg BID, Cr holding, making a lot of urine, weight is not changing, unlikely accurate -Appreciate pulmonology consultation, if breathing worsens then recommend CPAP 5-10 of pressure patient states he would not want intubated (2) Osteomyelitis: Patient with history of PAD, DM, osteomyelitis of RLE s/p right foot irrigation and debridement performed here with skin graft. Surgery well tolerated. Patient afebrile, HD stable, non-toxic in appearance MRSA from previous foot wound Now with MSSA from current foot wound resistant to erythromycin and Bactrim -Post operative management, wound care, pain control per primary team -ID consult, will be on cefazolin IV on discharge (3) Anemia: Chronic. Baseline Hgb 8-9 On hydroxyurea and also with chronic disease anemia Received 1/2 unit PRBCs on 02/22 and developed worsening resp failure requiring diuresis and BiPAP Hgb now improved, > 8 for several days, 8.3 03/03 -follow CBC -discussed w/ his Shield Operator who recommends holding hydroxyurea for now (4) Aortic valve stenosis: Chronic. - avoidance of overdiuresis (5) Arteriosclerotic cardiovascular disease (ASCVD): Chronic. Stable -Continue ASA, Plavix -Lisinopril on hold due to previous hypotension-continue to hold (6) Benign hypertension: Blood pressure stable at present -Holding Lisinopril/HCTZ due to previous hypotension -Continue to monitor (7) Chronic diastolic CHF (congestive heart failure): With acute on chronic diastolic CHF Patient possibly with mild congestion and volume overload -BNP elevated at 7000 -Continue IV Lasix 40mg daily -Monitor I/Os and weights, want to have net negative fluid balance daily, Lasix working well, negative 4 liters the past 4 days (8) CKD (chronic kidney disease) stage 3, GFR 30-59 ml/min: Baseline Cr of appx 1.3. Creatinine currently 1.2, stable for four days on Lasix -Avoid nephrotoxins -Renal dosing where needed follow BMP (9) Diabetes mellitus: Chronic. Well controlled with [id number]=8 on 02/04/20 -hold home Glipizide and Metformin -Now with some hyperglycemia with starting IV Solu-Medrol -Diabetic diet -Add Lantus 8 units at bedtime and tighten down NovoLog sliding scale with lower correction factor and carb ratio monitor for hypoglycemia, no episodes post prandial sugars high 03/01, fasting good in the morning will increase carb ratio and correction factor sugars better controlled (10) Idiopathic interstitial pneumonia: Chronic. Patient on 4-5L NC at baseline and reports his saturations are typically in the 80's to low 90's. He has seen Drs. Hardin and Landry and Shirley Dailey in the office. -Continue supplemental O2 as above on HFNC currently -Hold home prednisone 3mg po daily. Patient on correction chronic steroids - starting IV Solu-Medrol as above (11) Peripheral arterial disease: Chronic. History of stents and angioplasty to bilateral LEs. Patient follows with Dr. Ramos. -Continue ASA 81mg po daily -Continue Plavix 75mg po daily -warfarin as below holding statin while on Dapto (12) History of DVT (deep vein thrombosis): Chronic -Was given Vit K 2.5mg 02/23 to reverse INR 5.8. -Restarted Coumadin 7.5 mg p.o. daily on 02/25 INR 3.2 03/03 (13) Essential thrombocytosis: Chronic Could be due to infection in setting of taking hydroxyurea -follow CBC, plts 253k 03/03 -Continue to HOLD Hydroxyurea (14) Rheumatoid arthritis: Chronic -Continue daily Prednisone 3 mg once daily once done with taper (15) Leukocytosis: WBC count frequently elevated and more so at 22k today Could be stress response, could be also as he was discontinued from his hydroxyurea recently -Remains afebrile, no new signs of infection (16) DVT prophylaxis: Coumadin Disposition- downgrade to medical floor After discussion with patient, he is decided to be a DNR/DNI If not improving, consider palliative consultation plan for [facility] on discharge, he is improving so perhaps he will be ready Friday Admission and Anticipated Discharge Date Admission Date: February 23, 2020 Subjective transferred patient to medical floor appreciate ID consult, plan for Cefazolin on discharge labs today show WBC 22k, Hb 8.3, INR 3.2, Cr 1.[address] Coy, appreciate his input d/w CM, working on referral to [facility], will need to be off HFNC later today he was titrated to oxymask, making progress towards discharge has PICC line Review of Systems Review of Systems: All systems reviewed & are unremarkable except as noted in Subjective Constitutional: + fatigue and + weakness; no fever Respiratory: + dyspnea on exertion; no cough and no dyspnea Cardiovascular: no chest pain and no edema Physical Exam Constitutional: well developed, + thin, + frail appearing and cooperative; no acute distress Eyes: PERRL, conjunctivae normal, anicteric sclerae ENMT: external ear and nose normal, oropharynx normal Neck: trachea midline, no thyromegaly Respiratory: normal respiratory effort; no respiratory distress and no labored breathing Auscultation: + diminished lung sounds Cardiovascular: RRR, no murmur, no edema Gastrointestinal (Abdomen): normal bowel sounds, soft, nontender, no hepatosplenomegaly Musculoskeletal: no cyanosis or clubbing, extremities motor strength 5/5 Skin: no rashes, warm and dry Neurologic: patellar DTR's 2+ bilat, sensation intact and PERRL, EOMI, accommodation nl, no face palsy, no dysarthria Psychiatric: A+Ox3, euthymic affect Lymphatic: no cervical or axillary lymphadenopathy Results & Data Results & Data ([facility]) Vital Signs (Past 12 Hours) Vital Signs Temp Pulse Pulse Pulse Resp BP Pulse Ox 03/03/20 15:35 67 20 87 L 03/03/20 13:57 36.6 C 69 20 136/70 92 03/03/20 11:35 36.7 C 73 22 133/65 89 L 03/03/20 11:19 66 17 03/03/20 11:17 66 17 95 03/03/20 08:00 74 03/03/20 07:26 66 18 92 03/03/20 07:18 36.7 C 67 18 130/60 92 03/03/20 04:39 36.8 C 70 19 132/64 90 Laboratory Results Laboratory Results - last 24 hr 03/02/20 03/02/20 03/03/20 16:22 20:19 05:31 WBC RBC Hgb Hct MCV MCH MCHC RDW Std Deviation RDW Coeff of Dru Plt Count Immature Gran % (Auto) Neut % (Auto) Lymph % (Auto) [place] % (Auto) Eos % (Auto) Baso % (Auto) Neut # (Auto) Lymph # (Auto) [place] # (Auto) Eos # (Auto) Baso # (Auto) Immature Gran # (Auto) Polychromasia Tear Drop Cells ESR PT 31.9 H INR 3.2 H Sodium Potassium Chloride Carbon Dioxide Anion Gap BUN Creatinine Est Cr Clr Drug Dosing Est GFR ( Amer) Est GFR (Non-Af Amer) BUN/Creatinine Ratio Glucose POC Glucose 248 H 219 H Calcium Total Bilirubin AST ALT Alkaline Phosphatase Total Protein Albumin Globulin Albumin/Globulin Ratio 03/03/20 03/03/20 03/03/20 05:31 05:31 05:31 WBC 22.11 H RBC 3.20 L Hgb 8.3 L Hct 29.4 L MCV 91.9 MCH 25.9 MCHC 28.2 L RDW Std Deviation 62.8 H RDW Coeff of Dru 18.7 H Plt Count 253 D Immature Gran % (Auto) 0.7 Neut % (Auto) 90.6 Lymph % (Auto) 4.3 [place] % (Auto) 4.3 Eos % (Auto) 0.1 Baso % (Auto) 0.0 Neut # (Auto) 20.03 H Lymph # (Auto) 0.95 L [place] # (Auto) 0.95 H Eos # (Auto) 0.02 Baso # (Auto) 0.01 Immature Gran # (Auto) 0.15 H Polychromasia 1+ Tear Drop Cells 1+ ESR 6 PT INR Sodium 142 Potassium 3.9 Chloride 107 Carbon Dioxide 27 Anion Gap 8.0 BUN 47 H Creatinine 1.26 Est Cr Clr Drug Dosing 43.8 Est GFR ( Amer) 62.0 Est GFR (Non-Af Amer) 53.5 BUN/Creatinine Ratio 37.4 H Glucose 187 H POC Glucose Calcium 8.0 L Total Bilirubin 0.3 AST 17 ALT 10 L Alkaline Phosphatase 89 Total Protein 5.9 L Albumin 2.4 L Globulin 3.5 Albumin/Globulin Ratio 0.7 L 03/03/20 03/03/20 07:17 11:34 WBC RBC Hgb Hct MCV MCH MCHC RDW Std Deviation RDW Coeff of Dru Plt Count Immature Gran % (Auto) Neut % (Auto) Lymph % (Auto) [place] % (Auto) Eos % (Auto) Baso % (Auto) Neut # (Auto) Lymph # (Auto) [place] # (Auto) Eos # (Auto) Baso # (Auto) Immature Gran # (Auto) Polychromasia Tear Drop Cells ESR PT INR Sodium Potassium Chloride Carbon Dioxide Anion Gap BUN Creatinine Est Cr Clr Drug Dosing Est GFR ( Amer) Est GFR (Non-Af Amer) BUN/Creatinine Ratio Glucose POC Glucose 205 H 215 H Calcium Total Bilirubin AST ALT Alkaline Phosphatase Total Protein Albumin Globulin Albumin/Globulin Ratio Medications Administered Current Inpatient Medications Acetaminophen (Tylenol) 1,000 mg PO Q8 RA Stop: 03/24/20 21:59 Last Admin: 03/03/20 14:08 Dose: Not Given Documented by: Al Hydrox/Mg Hydrox/Simethicone (Maalox) 15 ml PO Q4H PRN PRN Reason: Heartburn Stop: 03/24/20 17:26 Albuterol (Duoneb) 3 ml NEB Q4R RA Stop: 03/24/20 18:59 Last Admin: 03/03/20 15:29 Dose: 3 ml Documented by: Aspirin (Ecotrin Ectab) 81 mg PO HS RA Stop: 03/24/20 20:59 Last Admin: 03/02/20 21:03 Dose: 81 mg Documented by: Bisacodyl (Dulcolax) 10 mg SD DAILY PRN PRN Reason: Constipation Stop: 03/24/20 17:26 Clopidogrel Bisulfate (Plavix) 75 mg PO PM RA Stop: 03/24/20 20:59 Last Admin: 03/02/20 21:03 Dose: 75 mg Documented by: Dextrose (Dextrose 50%) 25 - 50 ml IV UD PRN; Protocol PRN Reason: Hypoglycemia Protocol Stop: 03/24/20 18:22 Last Admin: 02/24/20 21:25 Dose: 50 ml Documented by: Diphenhydramine HCl (Benadryl Capsule) 25 mg PO Q8H PRN PRN Reason: Itching Stop: 03/24/20 17:26 Docusate Sodium (Colace) 100 mg PO BID RA Stop: 03/24/20 20:59 Last Admin: 03/03/20 08:10 Dose: 100 mg Documented by: Glucagon (Glucagen) 1 mg SQ UD PRN; Protocol PRN Reason: Hypoglycemia Protocol Stop: 03/24/20 18:22 Glucose (Dex4 Glucose) 4 - 8 tabs PO UD PRN; Protocol PRN Reason: Hypoglycemia Protocol Stop: 03/24/20 18:22 Glucose (Glucose 40%) 15 - 30 gm PO UD PRN; Protocol PRN Reason: Hypoglycemia Protocol Stop: 03/24/20 18:22 Heparin Sodium (Beef Lung) (Heparin Sod 10 Unit/Ml Flush) 5 ml FLUSH PRN PRN PRN Reason: Flush Stop: 03/27/20 00:08 Last Admin: 03/03/20 06:57 Dose: 5 ml Documented by: Hydromorphone HCl (Dilaudid) 0.5 mg IV Q4H PRN PRN Reason: Pain or Pre PT Stop: 03/08/20 17:26 Cefazolin Sodium (Ancef 2000mg) 2,000 mg in 15 mls @ 3.75 mls/min IV Q8H [facility] Stop: 04/12/20 07:59 Last Admin: 03/03/20 08:12 Dose: 3.75 mls/min Documented by: Furosemide 40 mg/ Syringe 4 mls @ 4 mls/min IV BID17 RA Stop: 04/02/20 16:59 Insulin Aspart (Novolog Flexpen) 0 units SC ACHS [facility] Stop: 03/24/20 20:59 Last Admin: 03/03/20 12:47 Dose: 11 units Documented by: Insulin Glargine (Lantus Solostar Pen) 8 units SC [facility] Stop: 03/28/20 20:59 Last Admin: 03/02/20 21:08 Dose: 8 units Documented by: Magnesium Hydroxide (Milk Of Magnesia) 30 ml PO Q6H PRN PRN Reason: Constipation Stop: 03/24/20 17:26 Metoclopramide HCl (Reglan) 10 mg IV Q6H PRN PRN Reason: Nausea And Vomiting Stop: 03/24/20 17:26 Miscellaneous (Carbohydrates For Hypoglycemia) 15 - 30 gm PO UD PRN PRN Reason: Hypoglycemia Protocol Stop: 03/24/20 18:22 Multivitamins (Multivitamin Tab) 1 tab PO [facility] Stop: 03/25/20 08:59 Last Admin: 03/03/20 08:11 Dose: 1 tab Documented by: Mupirocin (Bactroban 2%) 1 appln EXT BID PRN PRN Reason: SKIN BREAKDOWN Stop: 03/24/20 18:58 Naloxone HCl (Narcan) 0.1 mg IV Q5M PRN PRN Reason: Oversedation/Resp Depression Stop: 03/24/20 17:26 Ondansetron HCl (Zofran) 4 mg IV Q6H PRN PRN Reason: Nausea And Vomiting Stop: 03/24/20 17:26 Oxycodone HCl (Roxicodone Immediate Rel) 5 - 10 mg PO Q4H PRN PRN Reason: Pain or Pre PT Stop: 03/08/20 17:26 Last Admin: 02/23/20 18:22 Dose: 5 mg Documented by: Pantoprazole Sodium (Protonix) 40 mg PO QAM [facility] Stop: 03/28/20 10:59 Last Admin: 03/03/20 08:11 Dose: 40 mg Documented by: Prednisone (Prednisone) 20 mg PO BID [facility] Stop: 04/01/20 20:59 Last Admin: 03/03/20 08:11 Dose: 20 mg Documented by: Sennosides (Senokot) 17.2 mg PO [facility] Stop: 03/24/20 20:59 Last Admin: 03/02/20 21:04 Dose: 17.2 mg Documented by: Tamsulosin HCl (Flomax) 0.4 mg PO QAM PRN PRN Reason: unable to void Stop: 03/24/20 17:26 Tramadol HCl (Ultram) 50 - 100 mg PO Q4H PRN PRN Reason: Pain & Pre PT Stop: 03/24/20 17:26 Warfarin Sodium (Coumadin) 7.5 mg PO DAILY@1600 [facility] Stop: 03/27/20 15:59 Last Admin: 03/02/20 16:42 Dose: 7.5 mg Documented by: PG Care Time/CCT Total # of Minutes Spent Total Time Spent with Patient: Total time spent is greater than 50% in coordination of care (as documented) at patient's floor/unit and/or counseling patient: Coding Level of Care Code 96763 Subseq Hosp Care Lvl 3 Diagnoses Acute and chronic respiratory failure with hypoxia J96.21 Osteomyelitis M86.9 Osteomyelitis type: unspecified type Osteomyelitis location: foot Laterality: right Anemia D64.9 Anemia type: unspecified type Aortic valve stenosis I35.0 Cardiac valve disease etiology: etiology unspecified Arteriosclerotic cardiovascular disease (ASCVD) I25.10 Benign hypertension I10 Chronic diastolic CHF (congestive heart failure) I50.32 CKD (chronic kidney disease) stage 3, GFR 30-59 ml/min N18.3 Diabetes mellitus E11.9 Diabetes mellitus type: type 2 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 mellitus termite treater insulin use: without correction use Diabetes mellitus complication status: without complication Idiopathic interstitial pneumonia J84.111 Peripheral arterial disease I73.9 History of DVT (deep vein thrombosis) Z86.718 Essential thrombocytosis D47.3 Rheumatoid arthritis M06.9 Rheumatoid arthritis location: unspecified site Rheumatoid factor presence: unspecified presence Leukocytosis D72.829 DVT prophylaxis Z29.9 (1) Osteomyelitis Osteomyelitis type: unspecified type Osteomyelitis location: foot Laterality: right Qualified Code(s): M86.9 - Osteomyelitis, unspecified (2) Anemia Anemia type: unspecified type Qualified Code(s): D64.9 - Anemia, unspecified (3) Aortic valve stenosis Cardiac valve disease etiology: etiology unspecified Qualified Code(s): I35.0 - Nonrheumatic aortic (valve) stenosis (4) Diabetes mellitus Diabetes mellitus type: type 2 Diabetes mellitus termite treater insulin use: without termite treater use Diabetes mellitus complication status: without complication Qualified Code(s): E11.9 - Type 2 diabetes mellitus without complications (5) Rheumatoid arthritis Rheumatoid arthritis location: unspecified site Rheumatoid factor presence: unspecified presence Qualified Code(s): M06.9 - Rheumatoid arthritis, unspecified
[2020-03-03] MEDS: WARFARIN SOD 7.5 MG TAB PO SCH (16:52)
[2020-03-03] MEDS: CLOPIDOGREL BISULFATE 75 MG TAB PO SCH (20:17)
[2020-03-03] MEDS: ASPIRIN 81 MG ECTAB PO SCH (20:17)
[2020-03-03] MEDS: SENNA 8.6 MG TAB PO SCH (20:17)
[2020-03-03] MEDS: INSULIN GLARGINE SOLOSTAR 100 UNITS/ML 3 ML PEN SC SCH (20:58)
[2020-03-03] MEDS: OXYCODONE HCL IR 5 MG TAB (IMMEDIATE RELEASE) PO PRN (22:42)
[2020-03-04] MEDS: CEFAZOLIN 2000MG 2,000 MG/15 ML SYR IV SCH ×3 (00:16→16:34)
[2020-03-04] MEDS: ALBUT/IPRATROP 3MG/0.5MG NEB 3 ML VIAL NEB SCH ×6 (03:24→23:13)
[2020-03-04] MEDS: ACETAMINOPHEN 500 MG TAB PO SCH ×3 (05:26→21:26)
[2020-03-04] MEDS: DOCUSATE SODIUM 100 MG CAP PO SCH ×2 (08:43→21:21)
[2020-03-04] MEDS: FUROSEMIDE 40 MG in SYRINGE 0 ML IV SCH ×2 (08:43→16:45)
[2020-03-04] MEDS: MULTIVITAMIN TAB PO SCH (08:44)
[2020-03-04] MEDS: predniSONE 20 MG TAB PO SCH (08:44)
[2020-03-04] MEDS: PANTOprazole 40 MG TAB PO SCH (08:45)
[2020-03-04] MEDS: INSULIN ASPART 100 UNITS/ML 3 ML PEN SC SCH ×4 (08:47→21:23)
--- NOTE | 2020-03-04 10:46 | Pulmonology Progress Note ---
Date of Service March 04, 2020 Assessment & Plan (1) Hypoxia: Impression: 79-year-old male with chronic hypoxemic respiratory failure and oxygen requirement of 4 L at baseline presenting now status post I&D of osteomyelitis of right toe. Patient developed hypoxemic respiratory failure in conjunction with receiving some packed cells. Differential diagnosis is broad and would include transfusion associated circulatory overload, transfusion associated lung injury, or exacerbation of existing ILD. Right to left shunting due to a PFO or ASD is certainly possible. The patient had an echocardiogram performed last year which demonstrated no right to left shunt at that time. Patient has been undergoing diuresis and was empirically placed on steroids to see if there was an inflammatory component. He has had slow progress but his x- ray does look better. Recommendations: 1. Patient has been weaned down to his baseline oxygen requirement of 4 L. Would continue IV Lasix twice daily for an additional 24 hours and then can transition to oral. Agree with ID recommendations to transition from daptomycin to cefazolin with long-term infusion via PICC line. Continue out of bed, incent dev spirometry, and flutter valve. 2. History of interstitial lung disease: Patient currently on prednisone 40 mg a day. Will decrease down to 20 mg a day today and follow We will continue to follow with you. (2) Abnormal CT scan of lung: (3) Interstitial lung disease: (4) Moderate protein-energy malnutrition: Admission and Anticipated Discharge Date Admission Date: February 23, 2020 Subjective Patient seen and examined. EMR reviewed. He is significantly better. He is been able to transition down to nasal cannula at 4 L/min which is his baseline. He denies any new respiratory complaints. He is not coughing or expectorating phlegm. Review of Systems Review of Systems: Unchanged from prior Physical Exam Constitutional: WD/WN, vitals as above Neck: trachea midline, no thyromegaly Respiratory: normal respiratory effort, lungs clear to auscultation Cardiovascular: RRR, no murmur, no edema Gastrointestinal (Abdomen): normal bowel sounds, soft, nontender, no hepatosplenomegaly Musculoskeletal: Extremities: extremities normal to inspection Skin: no rashes, warm and dry Lymphatic: no cervical lymphadenopathy Results & Data Results & Data ([facility]) Vital Signs (Past 12 Hours) Vital Signs Temp Pulse Resp BP Pulse Ox 03/04/20 07:52 36.7 C 64 22 120/64 91 03/04/20 07:32 61 18 86 L 03/04/20 06:53 89 L 03/04/20 06:45 90 03/04/20 06:36 64 86 L 03/04/20 06:18 63 87 L 03/04/20 06:12 66 83 L 03/04/20 06:10 91 03/04/20 03:30 71 16 83 L 03/03/20 23:23 68 16 86 L 03/03/20 23:20 36.9 C 68 18 118/48 L 95 Laboratory Results 03/03/20 05:31 03/03/20 05:31 Diagnostic Findings No new imaging PG Care Time/CCT Total # of Minutes Spent Total Time Spent with Patient: Total time spent is greater than 50% in coordination of care (as documented) at patient's floor/unit and/or counseling patient: Coding Level of Care Code 45428 Subseq Hosp Care Lvl 2 Diagnoses Hypoxia R09.[address] scan of lung R91.8 Interstitial lung disease J84.9 Moderate protein-energy malnutrition E44.0
--- NOTE | 2020-03-04 15:35 | Hospitalist Progress Note ---
Date of Service March 04, 2020 Assessment & Plan (1) Acute and chronic respiratory failure with hypoxia: 79yo C male with history of idiopathic interstitial PNA on long-term steroids and home O2 of 4-5L, COPD, diastolic CHF, DM 2, DVT on Coumadin, CKD stage III, essential thrombocytosis, anemia, history of bladder cancer, HTN, hyperlipidemia, RA, aortic stenosis, PAD, here with post-operative hypoxia. Patient had debridement of RLE toe on 02/22. Saturations in the 80's despite being on NC + Facemask. Patient is asymptomatic, hemodynamically stable. CXR read as progressive bibasilar parenchymal infiltrates verses developing pulmonary edematous change - overall appears similar to prior images - patient with history of IIP. Had worsening resp status overnight on 02/22 after receiving 1/2 unit PRBCs for severe anemia CXR and chest CT on 02/22 with interlobular thickening and groundglass pattern within the lungs which favors pulmonary edema but infectious process could appear similar, trace bilateral pleural effusions with bilateral lower lobe airspace opacities which favor atelectasis versus consolidation, and numerous blastic skeletal metastases Received IV lasix and placed on BiPAP and then transition to high flow nasal cannula titrated to 5L NC today, much improved, he wears 4L NC at baseline so the acute component of hypoxia is essentially resolved -change to Prednisone 20mg daily with plans for quick taper -Continuous pulse oximetry -Continue supplemental O2 as needed, goal saturations of 88% -DuoNebs [id number], pulmonary toilet with incentive spirometry and flutter valve -Continue lasix but change to oral dosing -Appreciate pulmonology consultation told CM that the patient should be ready for d/c to [facility] on Friday/Friday (2) Osteomyelitis: Patient with history of PAD, DM, osteomyelitis of RLE s/p right foot irrigation and debridement performed here with skin graft. Surgery well tolerated. Patient afebrile, HD stable, non-toxic in appearance MRSA from previous foot wound Now with MSSA from current foot wound resistant to erythromycin and Bactrim -Post operative management, wound care, pain control per primary team -ID consult, will be on cefazolin IV on discharge (3) Anemia: Chronic. Baseline Hgb 8-9 On hydroxyurea and also with chronic disease anemia Received 1/2 unit PRBCs on 02/22 and developed worsening resp failure requiring diuresis and BiPAP Hgb now improved, > 8 for several days, 8.3 03/03 -follow CBC tomorrow -discussed w/ his Vice President Of Finance who recommends holding hydroxyurea for now (4) Aortic valve stenosis: Chronic. - avoidance of overdiuresis (5) Arteriosclerotic cardiovascular disease (ASCVD): Chronic. Stable -Continue ASA, Plavix -Lisinopril on hold due to previous hypotension-continue to hold, BP is 120 systolic off lisinopril (6) Benign hypertension: Blood pressure stable at present, 120 systolic -Holding Lisinopril/HCTZ due to previous hypotension -Continue to monitor (7) Chronic diastolic CHF (congestive heart failure): With acute on chronic diastolic CHF Patient possibly with mild congestion and volume overload -BNP elevated at 7000 -Continue Lasix PO -Monitor I/Os and weights, want to have net negative fluid balance daily, Lasix working well, weight down 6 kg since aggressive diuresis started (8) CKD (chronic kidney disease) stage 3, GFR 30-59 ml/min: Baseline Cr of appx 1.3. Creatinine currently 1.2, stable for five days on Lasix -Avoid nephrotoxins -Renal dosing where needed follow BMP (9) Diabetes mellitus: Chronic. Well controlled with [id number]=3 on 02/04/20 -hold home Glipizide and Metformin -Now with some hyperglycemia with starting IV Solu-Medrol -Diabetic diet -continue Lantus 8 units at bedtime and tighten down NovoLog sliding scale with lower correction factor and carb ratio monitor for hypoglycemia, no episodes post prandial sugars high occasionally, fasting good in the morning will increase carb ratio and correction factor sugars better controlled reducing Prednisone to 20mg daily (10) Idiopathic interstitial pneumonia: Chronic. Patient on 4-5L NC at baseline and reports his saturations are typically in the 80's to low 90's. He has seen Drs. Hardin and Landry and Shirley Dailey in the office. -Continue supplemental O2 as above on HFNC currently -Hold home prednisone 3mg po daily. 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 History of stents and angioplasty to bilateral LEs. Patient follows with Dr. Ramos. -Continue ASA 81mg po daily -Continue Plavix 75mg po daily -warfarin as below holding statin while on Dapto (12) History of DVT (deep vein thrombosis): Chronic -Was given Vit K 2.5mg 02/23 to reverse INR 5.8. -Restarted Coumadin 7.5 mg p.o. daily on 02/25 INR 3.2 03/03 (13) Essential thrombocytosis: Chronic Could be due to infection in setting of taking hydroxyurea -follow CBC, plts 253k 03/03 -Continue to HOLD Hydroxyurea (14) Rheumatoid arthritis: Chronic -Continue daily Prednisone 3 mg once daily once done with taper (15) Leukocytosis: WBC count frequently elevated and more so at 22k Could be stress response, could be also as he was discontinued from his hydroxyurea recently -Remains afebrile, no new signs of infection (16) DVT prophylaxis: Coumadin Disposition- downgrade to medical floor After discussion with patient, he is decided to be a DNR/DNI If not improving, consider palliative consultation plan for [facility] on discharge, he is improving so perhaps he will be ready Friday/Friday will plan for COVID screen once we know he can go Admission and Anticipated Discharge Date Admission Date: February 23, 2020 Subjective patient doing well, titrated down to 6L nasal canula which is improvement appreciate note from pulmonology, taper Prednisone to 20mg and cut Lasix to once a day updated patient's daughter over the phone no labs today, will check tomorrow discussed plan for [facility] with CM, will plan for Friday/Friday will ask about repeat COVID testing Review of Systems Review of Systems: All systems reviewed & are unremarkable except as noted in Subjective Respiratory: + dyspnea on exertion; no dyspnea Cardiovascular: no chest pain and no edema Musculoskeletal: + joint pain (right foot) Physical Exam Constitutional: well developed, + thin, + frail appearing and cooperative; no acute distress Eyes: PERRL, conjunctivae normal, anicteric sclerae ENMT: external ear and nose normal, oropharynx normal Neck: trachea midline, no thyromegaly Respiratory: normal respiratory effort; no respiratory distress and no labored breathing Auscultation: + diminished lung sounds Cardiovascular: RRR, no murmur, no edema Gastrointestinal (Abdomen): normal bowel sounds, soft, nontender, no hepatosplenomegaly Musculoskeletal: no cyanosis or clubbing, extremities motor strength 5/5 Skin: no rashes, warm and dry Neurologic: patellar DTR's 2+ bilat, sensation intact and PERRL, EOMI, accommodation nl, no face palsy, no dysarthria Psychiatric: A+Ox3, euthymic affect Lymphatic: no cervical or axillary lymphadenopathy Results & Data Results & Data ([facility]) Vital Signs (Past 12 Hours) Vital Signs Temp Pulse Resp BP Pulse Ox 03/04/20 15:25 54 L 18 95 03/04/20 11:52 70 20 87 L 03/04/20 07:52 36.7 C 64 22 120/64 91 03/04/20 07:32 61 18 86 L 03/04/20 06:53 89 L 03/04/20 06:45 90 03/04/20 06:36 64 86 L 03/04/20 06:18 63 87 L 03/04/20 06:12 66 83 L 03/04/20 06:10 91 03/04/20 03:30 71 16 83 L Medications Administered Current Inpatient Medications Acetaminophen (Tylenol) 1,000 mg PO Q8 [facility] Stop: 03/24/20 21:59 Last Admin: 03/04/20 14:03 Dose: 1,000 mg Documented by: Al Hydrox/Mg Hydrox/Simethicone (Maalox) 15 ml PO Q4H PRN PRN Reason: Heartburn Stop: 03/24/20 17:26 Albuterol (Duoneb) 3 ml NEB Q4R RA Stop: 03/24/20 18:59 Last Admin: 03/04/20 15:23 Dose: 3 ml Documented by: Aspirin (Ecotrin Ectab) 81 mg PO HS RA Stop: 03/24/20 20:59 Last Admin: 03/03/20 20:17 Dose: 81 mg Documented by: Bisacodyl (Dulcolax) 10 mg [place] DAILY PRN PRN Reason: Constipation Stop: 03/24/20 17:26 Clopidogrel Bisulfate (Plavix) 75 mg PO PM RA Stop: 03/24/20 20:59 Last Admin: 03/03/20 20:17 Dose: 75 mg Documented by: Dextrose (Dextrose 50%) 25 - 50 ml IV UD PRN; Protocol PRN Reason: Hypoglycemia Protocol Stop: 03/24/20 18:22 Last Admin: 02/24/20 21:25 Dose: 50 ml Documented by: Diphenhydramine HCl (Benadryl Capsule) 25 mg PO Q8H PRN PRN Reason: Itching Stop: 03/24/20 17:26 Docusate Sodium (Colace) 100 mg PO BID RA Stop: 03/24/20 20:59 Last Admin: 03/04/20 08:43 Dose: 100 mg Documented by: Glucagon (Glucagen) 1 mg SQ UD PRN; Protocol PRN Reason: Hypoglycemia Protocol Stop: 03/24/20 18:22 Glucose (Dex4 Glucose) 4 - 8 tabs PO UD PRN; Protocol PRN Reason: Hypoglycemia Protocol Stop: 03/24/20 18:22 Glucose (Glucose 40%) 15 - 30 gm PO UD PRN; Protocol PRN Reason: Hypoglycemia Protocol Stop: 03/24/20 18:22 Heparin Sodium (Beef Lung) (Heparin Sod 10 Unit/Ml Flush) 5 ml FLUSH PRN PRN PRN Reason: Flush Stop: 03/27/20 00:08 Last Admin: 03/04/20 00:17 Dose: 5 ml Documented by: Hydromorphone HCl (Dilaudid) 0.5 mg IV Q4H PRN PRN Reason: Pain or Pre PT Stop: 03/08/20 17:26 Cefazolin Sodium (Ancef 2000mg) 2,000 mg in 15 mls @ 3.75 mls/min IV Q8H [facility] Stop: 04/12/20 07:59 Last Admin: 03/04/20 08:43 Dose: 3.75 mls/min Documented by: Furosemide 40 mg/ Syringe 4 mls @ 4 mls/min IV BID17 RA Stop: 04/02/20 16:59 Last Admin: 03/04/20 08:43 Dose: 4 mls/min Documented by: Insulin Aspart (Novolog Flexpen) 0 units SC ACHS RA Stop: 03/24/20 20:59 Last Admin: 03/04/20 13:06 Dose: 14 units Documented by: Insulin Glargine (Lantus Solostar Pen) 8 units SC HS RA Stop: 03/28/20 20:59 Last Admin: 03/03/20 20:58 Dose: 8 units Documented by: Magnesium Hydroxide (Milk Of Magnesia) 30 ml PO Q6H PRN PRN Reason: Constipation Stop: 03/24/20 17:26 Metoclopramide HCl (Reglan) 10 mg IV Q6H PRN PRN Reason: Nausea And Vomiting Stop: 03/24/20 17:26 Miscellaneous (Carbohydrates For Hypoglycemia) 15 - 30 gm PO UD PRN PRN Reason: Hypoglycemia Protocol Stop: 03/24/20 18:22 Multivitamins (Multivitamin Tab) 1 tab PO QAM [facility] Stop: 03/25/20 08:59 Last Admin: 03/04/20 08:44 Dose: 1 tab Documented by: Mupirocin (Bactroban 2%) 1 appln EXT BID PRN PRN Reason: SKIN BREAKDOWN Stop: 03/24/20 18:58 Naloxone HCl (Narcan) 0.1 mg IV Q5M PRN PRN Reason: Oversedation/Resp Depression Stop: 03/24/20 17:26 Ondansetron HCl (Zofran) 4 mg IV Q6H PRN PRN Reason: Nausea And Vomiting Stop: 03/24/20 17:26 Oxycodone HCl (Roxicodone Immediate Rel) 5 - 10 mg PO Q4H PRN PRN Reason: Pain or Pre PT Stop: 03/08/20 17:26 Last Admin: 03/03/20 22:42 Dose: 5 mg Documented by: Pantoprazole Sodium (Protonix) 40 mg PO QAM [facility] Stop: 03/28/20 10:59 Last Admin: 03/04/20 08:45 Dose: 40 mg Documented by: Prednisone (Prednisone) 20 mg PO DAILY [facility] Stop: 04/04/20 08:59 Sennosides (Senokot) 17.2 mg PO HS [facility] Stop: 03/24/20 20:59 Last Admin: 03/03/20 20:17 Dose: 17.2 mg Documented by: Tamsulosin HCl (Flomax) 0.4 mg PO QAM PRN PRN Reason: unable to void Stop: 03/24/20 17:26 Tramadol HCl (Ultram) 50 - 100 mg PO Q4H PRN PRN Reason: Pain & Pre PT Stop: 03/24/20 17:26 Warfarin Sodium (Coumadin) 7.5 mg PO DAILY@1600 [facility] Stop: 03/27/20 15:59 Last Admin: 03/03/20 16:52 Dose: 7.5 mg Documented by: PG Care Time/CCT Total # of Minutes Spent Total Time Spent with Patient: Total time spent is greater than 50% in coordination of care (as documented) at patient's floor/unit and/or counseling patient: Coding Level of Care Code 87163 Subseq Hosp Care Lvl 2 Diagnoses Acute and chronic respiratory failure with hypoxia J96.21 Osteomyelitis M86.9 Osteomyelitis type: unspecified type Osteomyelitis location: foot Laterality: right Anemia D64.9 Anemia type: unspecified type Aortic valve stenosis I35.0 Cardiac valve disease etiology: etiology unspecified Arteriosclerotic cardiovascular disease (ASCVD) I25.10 Benign hypertension I10 Chronic diastolic CHF (congestive heart failure) I50.32 CKD (chronic kidney disease) stage 3, GFR 30-59 ml/min N18.3 Diabetes mellitus E11.9 Diabetes mellitus type: type 2 Diabetes mellitus skilled nursing insulin use: without terminal computer operator use Diabetes mellitus complication status: without complication Idiopathic interstitial pneumonia J84.111 Peripheral arterial disease I73.9 History of DVT (deep vein thrombosis) Z86.718 Essential thrombocytosis D47.3 Rheumatoid arthritis M06.9 Rheumatoid arthritis location: unspecified site Rheumatoid factor presence: unspecified presence Leukocytosis D72.829 DVT prophylaxis Z29.9 (1) Osteomyelitis Osteomyelitis type: unspecified type Osteomyelitis location: foot Laterality: right Qualified Code(s): M86.9 - Osteomyelitis, unspecified (2) Anemia Anemia type: unspecified type Qualified Code(s): D64.9 - Anemia, unspecified (3) Aortic valve stenosis Cardiac valve disease etiology: etiology unspecified Qualified Code(s): I35.0 - Nonrheumatic aortic (valve) stenosis (4) Diabetes mellitus Diabetes mellitus type: type 2 Diabetes mellitus skilled nursing insulin use: without skilled nursing use Diabetes mellitus complication status: without complication Qualified Code(s): E11.9 - Type 2 diabetes mellitus without complications (5) Rheumatoid arthritis Rheumatoid arthritis location: unspecified site Rheumatoid factor presence: unspecified presence Qualified Code(s): M06.9 - Rheumatoid arthritis, unspecified
[2020-03-04] MEDS: WARFARIN SOD 7.5 MG TAB PO SCH (16:45)
[2020-03-04] MEDS: CLOPIDOGREL BISULFATE 75 MG TAB PO SCH (21:17)
[2020-03-04] MEDS: SENNA 8.6 MG TAB PO SCH (21:18)
[2020-03-04] MEDS: ASPIRIN 81 MG ECTAB PO SCH (21:18)
[2020-03-04] MEDS: INSULIN GLARGINE SOLOSTAR 100 UNITS/ML 3 ML PEN SC SCH (21:23)
[2020-03-05] MEDS: CEFAZOLIN 2000MG 2,000 MG/15 ML SYR IV SCH ×2 (00:08→10:00)
[2020-03-05] MEDS: ALBUT/IPRATROP 3MG/0.5MG NEB 3 ML VIAL NEB SCH ×6 (03:14→23:20)
[2020-03-05] MEDS: ACETAMINOPHEN 500 MG TAB PO SCH ×3 (05:54→20:52)
[2020-03-05 06:24] LABS: Hematocrit (blood only) 31.5 % (42-52); Hemoglobin 8.8 g/dL (14.0-18.0); Mean Corpuscular Hemoglobin 25.4 pg (25-34); Mean Corpuscular Hgb Conc 27.9 g/dL (32-36); Mean Platelet Volume 11.7 fL (7.4-10.4); Platelet Count 339 K/uL (130-400); RDW Coefficient of Variation 19.4 % (11.5-14.5); RDW Standard Deviation 63.1 fL (36.4-46.3); Red Blood Count 3.46 M/uL (4.7-6.1)
[2020-03-05 06:38] LABS: Prothrombin Time 39.5 Seconds (9.0-12.0)
[2020-03-05 06:52] LABS: BUN Creatinine Ratio 40.4 (10-20); Calcium 8.2 mg/dl (8.5-10.1); Creatinine Clr Calc Pharmacy 37.9 ml/min; Est GFR (African American) 55.1; Est GFR (Non-African American) 47.5; Potassium 3.4 mmol/L (3.5-5.1)
[2020-03-05] MEDS: PANTOprazole 40 MG TAB PO SCH (09:51)
[2020-03-05] MEDS: predniSONE 20 MG TAB PO SCH (09:52)
[2020-03-05] MEDS: INSULIN ASPART 100 UNITS/ML 3 ML PEN SC SCH ×4 (09:52→20:51)
[2020-03-05] MEDS: MULTIVITAMIN TAB PO SCH (09:52)
[2020-03-05] MEDS: FUROSEMIDE 40 MG in SYRINGE 0 ML IV SCH ×2 (10:00→17:30)
--- NOTE | 2020-03-05 10:05 | Pulmonology Progress Note ---
Date of Service March 05, 2020 Assessment & Plan (1) Hypoxia: Impression: 79-year-old male with chronic hypoxemic respiratory failure and oxygen requirement of 4 L at baseline presenting now status post I&D of osteomyelitis of right toe. Patient developed hypoxemic respiratory failure in conjunction with receiving some packed cells. He had initially improved with steroids and diuresis and was down to his baseline oxygen requirement yesterday however it has creeped up overnight. Unclear if he may have some concomitant nocturnal hypoventilation superimposed on interstitial lung disease. Recommendations: 1. We will repeat chest x-ray in light of clinical change overnight. Continue diuretics and aggressive pulmonary toilet. Continue out of bed, incentive spirometry, and flutter valve. 2. History of interstitial lung disease: Patient decreased to 20 mg a day yesterday. I doubt that is the source of his progressive hypoxemia overnight. Await follow-up imaging. We will continue to follow with you. (2) Abnormal CT scan of lung: (3) Interstitial lung disease: (4) Moderate protein-energy malnutrition: Admission and Anticipated Discharge Date Admission Date: February 23, 2020 Subjective Patient seen and examined sitting up in chair. Yesterday he was down to 5 L nasal cannula but now he is back to high flow at 30 L/min 80%. The patient continues to deny any respiratory issues. Review of the respiratory therapist memo carrasco indicates that the patient had low oxygen saturations down to 70% despite 12 L oxygen mask therefore was transitioned to Vapotherm. He is currently 97% on the settings. He denies any cough or sputum production. Review of Systems Review of Systems: Unchanged from prior Physical Exam Constitutional: WD/WN, vitals as above Neck: trachea midline, no thyromegaly Respiratory: normal respiratory effort, lungs clear to auscultation Cardiovascular: RRR, no murmur, no edema Gastrointestinal (Abdomen): normal bowel sounds, soft, nontender, no hepatosplenomegaly Musculoskeletal: Extremities: extremities normal to inspection Skin: no rashes, warm and dry Lymphatic: no cervical lymphadenopathy Results & Data Results & Data ([facility]) Vital Signs (Past 12 Hours) Vital Signs Temp Pulse Resp BP Pulse Ox 03/05/20 08:02 36.8 C 67 18 133/68 89 L 03/05/20 07:41 65 18 87 L 03/05/20 06:48 65 18 85 L 03/05/20 04:04 77 L 03/05/20 03:14 67 18 78 L 03/04/20 23:39 36.7 C 73 18 106/51 L 85 L 03/04/20 23:14 92 H 18 85 L Laboratory Results 03/05/20 05:20 03/05/20 05:20 Diagnostic Findings No new imaging PG Care Time/CCT Total # of Minutes Spent Total Time Spent with Patient: Total time spent is greater than 50% in coordination of care (as documented) at patient's floor/unit and/or counseling patient: Coding Level of Care Code 48234 Subseq Hosp Care Lvl 3 Diagnoses Hypoxia R09.[address] scan of lung R91.8 Interstitial lung disease J84.9 Moderate protein-energy malnutrition E44.0
--- NOTE | 2020-03-05 10:17 | Orthopedic Progress Note ---
Date of Service March 05, 2020 Assessment & Plan (1) Osteomyelitis of foot: 79 yo male stable s/p right foot I&D 1. Med management 2. DVT prophylaxis- Coumadin, SCDs 3. PT/OT 4. D/C planning- per medicine Admission and Anticipated Discharge Date Admission Date: February 23, 2020 Subjective Pt doing in-room PT, denies complaints Physical Exam Physical Exam: Dressing changed, surgical wound 5th met head benign Results & Data ([facility]) Vital Signs (Past 12 Hours) Vital Signs Temp Pulse Resp BP Pulse Ox 03/05/20 08:02 36.8 C 67 18 133/68 89 L 03/05/20 07:41 65 18 87 L 03/05/20 06:48 65 18 85 L 03/05/20 04:04 77 L 03/05/20 03:14 67 18 78 L 03/04/20 23:39 36.7 C 73 18 106/51 L 85 L 03/04/20 23:14 92 H 18 85 L Laboratory Results 03/05/20 03/05/20 03/05/20 Range/Units 08:11 05:20 05:20 WBC 27.10 H (4.8-10.8) K/uL RBC 3.46 L (4.7-6.1) M/uL Hgb 8.8 L (14.0-18.0) g/dL Hct 31.5 L (42-52) % MCV 91.0 (80-100) fL MCH 25.4 (25-34) pg MCHC 27.9 L (32-36) g/dL RDW Std Deviation 63.1 H (36.4-46.3) fL RDW Coeff of Dru 19.4 H (11.5-14.5) % Plt Count 339 (130-400) K/uL MPV 11.7 H (7.4-10.4) fL PT (9.0-12.0) Seconds INR (0.9-1.1) Sodium 138 (136-145) mmol/L Potassium 3.4 L (3.5-5.1) mmol/L Chloride 101 (98-107) mmol/L Carbon Dioxide 30 (21-32) mmol/L Anion Gap 7.0 (3-11) BUN 56 H (7-18) mg/dl Creatinine 1.39 (0.6-1.4) mg/dl Est Cr Clr Drug Dosing 37.9 ml/min Est GFR ( Amer) 55.1 Est GFR (Non-Af Amer) 47.5 BUN/Creatinine Ratio 40.4 H (10-20) Glucose 109 H (70-99) mg/dl POC Glucose 161 H (70-99) mg/dl Calcium 8.2 L (8.5-10.1) mg/dl 03/05/20 03/04/20 03/04/20 Range/Units 05:20 20:32 17:02 WBC (4.8-10.8) K/uL RBC (4.7-6.1) M/uL Hgb (14.0-18.0) g/dL Hct (42-52) % MCV (80-100) fL MCH (25-34) pg MCHC (32-36) g/dL RDW Std Deviation (36.4-46.3) fL RDW Coeff of Dru (11.5-14.5) % Plt Count (130-400) K/uL MPV (7.4-10.4) fL PT 39.5 H (9.0-12.0) Seconds INR 4.0 H (0.9-1.1) Sodium (136-145) mmol/L Potassium (3.5-5.1) mmol/L Chloride (98-107) mmol/L Carbon Dioxide (21-32) mmol/L Anion Gap (3-11) BUN (7-18) mg/dl Creatinine (0.6-1.4) mg/dl Est Cr Clr Drug Dosing ml/min Est GFR ( Amer) Est GFR (Non-Af Amer) BUN/Creatinine Ratio (10-20) Glucose (70-99) mg/dl POC Glucose 291 H 160 H (70-99) mg/dl Calcium (8.5-10.1) mg/dl 03/04/20 Range/Units 11:42 WBC (4.8-10.8) K/uL RBC (4.7-6.1) M/uL Hgb (14.0-18.0) g/dL Hct (42-52) % MCV (80-100) fL MCH (25-34) pg MCHC (32-36) g/dL RDW Std Deviation (36.4-46.3) fL RDW Coeff of Dru (11.5-14.5) % Plt Count (130-400) K/uL MPV (7.4-10.4) fL PT (9.0-12.0) Seconds INR (0.9-1.1) Sodium (136-145) mmol/L Potassium (3.5-5.1) mmol/L Chloride (98-107) mmol/L Carbon Dioxide (21-32) mmol/L Anion Gap (3-11) BUN (7-18) mg/dl Creatinine (0.6-1.4) mg/dl Est Cr Clr Drug Dosing ml/min Est GFR ( Amer) Est GFR (Non-Af Amer) BUN/Creatinine Ratio (10-20) Glucose (70-99) mg/dl POC Glucose 269 H (70-99) mg/dl Calcium (8.5-10.1) mg/dl (1) Osteomyelitis of foot Laterality: right Osteomyelitis type: unspecified type Qualified Code(s): M86.9 - Osteomyelitis, unspecified
--- NOTE | 2020-03-05 10:38 | XRay Report ---
SINGLE VIEW CHEST CLINICAL HISTORY: Hypoxia. FINDINGS: An AP, portable, supine chest radiograph is compared to study dated 03/03/2020 and correlate d with chest CT dated 02/23/2020. The examination is degraded by portable technique and patient rotati on. A right PICC line is unchanged in position. The tip projects over the right atrium. The heart is enlarged noting atherosclerotic calcification of the thoracic aorta. There is mild pulmonary vascular congestion. Emphysema with chronic interstitial thickening and numerous tiny pulmonary nodules is ag ain seen throughout both lungs. The largest nodule seen at the right apex and measures 1.4 cm. There is increasing bibasilar airspace consolidation. Small pleural effusions are noted. No pneumothorax is seen. The skeletal structures are osteopenic. There are healed right-sided rib fractures. Advanced a rthritic change is seen in the shoulders. Superior subluxation of the humeral heads suggest chronic b ilateral rotator cuff injuries. IMPRESSION: 1. Cardiomegaly with mild pulmonary vascular congestion. 2. Emphysema, chronic interstitial thickening, and numerous tiny pulmonary nodules is similar in appe arance to previous. 3. There is increasing bibasilar airspace consolidation is compared to 03/03/2020. Clinically for evid ence of pneumonia/aspiration pneumonitis. 4. Small pleural effusions. ACT 112: Negative or not required by law. Electronically signed by: Ignacio Rebolledo M.D. 03/05/2020 10:36 AM
[2020-03-05] MEDS: DOCUSATE SODIUM 100 MG CAP PO SCH ×2 (11:14→21:44)
[2020-03-05] MEDS: POTASSIUM CHLORIDE 20 MEQ TABCR PO SCH ×2 (11:14→20:52)
[2020-03-05] MEDS ORDERED: PIPERACILL/TAZOBAC CONSULT ACTIVE PRN (12:17)
[2020-03-05] MEDS ORDERED: PIPERACILLIN/TAZOBACTAM 4.5 GM in DEXTROSE 5% 100 ML IV STA (12:17)
[2020-03-05] MEDS ORDERED: PIPERACILLIN/TAZOBACTAM 3.375 GM in DEXTROSE 5% 100 ML IV ONE (12:30)
--- NOTE | 2020-03-05 16:04 | Hospitalist Progress Note ---
Date of Service March 05, 2020 Assessment & Plan (1) Acute and chronic respiratory failure with hypoxia: Had worsening resp status overnight on 02/22 after receiving 1/2 unit PRBCs for severe anemia CXR and chest CT on 02/22 with interlobular thickening and groundglass pattern within the lungs which favors pulmonary edema but infectious process could appear similar, trace bilateral pleural effusions with bilateral lower lobe airspace opacities which favor atelectasis versus consolidation, and numerous blastic skeletal metastases patient was doing well, titrated from HFNC down to 5L via mask on 03/04 he decompensated and desaturated on 03/04 in the evening and 03/05 in the surgery nurse required HFNC again, currently 25L and 60% FiO2 he has no distress, says he is breathing fine, feels the same CXR 03/05 with chronic interstitial changes, no significant pulmonary edema, but does have increased consolidation in bases could represent atelectasis vs infiltrate WBC up to 27k will start on Zosyn IV to cover pneumonia, encourage OOB in chair and sit upright, ISB use, flutter valve to treat atelectasis check procalcitonin in the morning, could be skewed with foot infection? continue Prednisone 20mg daily, ongoing taper continue Lasix BID to keep lungs dry discuss with pulmonary tomorrow hold on discharge to [facility] at this time since he is back on HFNC (2) Osteomyelitis: Patient with history of PAD, DM, osteomyelitis of RLE s/p right foot irrigation and debridement performed here with skin graft. Surgery well tolerated. Patient afebrile, HD stable, non-toxic in appearance MRSA from previous foot wound Now with MSSA from current foot wound resistant to erythromycin and Bactrim -Post operative management, wound care, pain control per primary team -ID consult, will be on cefazolin IV on discharge, plan for 4-6 weeks, will follow up with orthopedic surgery 03/05: holding cefazolin, change to Zosyn to cover for possible pneumonia as a cause of hypoxia (3) Anemia: Chronic. Baseline Hgb 8-9 On hydroxyurea and also with chronic disease anemia Received 1/2 unit PRBCs on 02/22 and developed worsening resp failure requiring d iuresis and BiPAP Hgb now improved, > 8 for several days, 8.8 on 03/05 -discussed w/ his Vault Manager who recommends holding hydroxyurea for now (4) Aortic valve stenosis: Chronic. - avoidance of overdiuresis (5) Arteriosclerotic cardiovascular disease (ASCVD): Chronic. Stable -Continue ASA, Plavix -Lisinopril on hold due to previous hypotension-continue to hold, BP is 130 systolic off lisinopril (6) Benign hypertension: Blood pressure stable at present, 130 systolic -Holding Lisinopril/HCTZ due to previous hypotension -Continue to monitor (7) Chronic diastolic CHF (congestive heart failure): With acute on chronic diastolic CHF Patient possibly with mild congestion and volume overload, likely due to transfusion causing acute volume overload -BNP elevated at 7000 after transfusion -Continue Lasix 40mg IV BID -Monitor I/Os and weights, want to have net negative fluid balance daily, Lasix working well, weight trending down, some weights are inaccurate (8) CKD (chronic kidney disease) stage 3, GFR 30-59 ml/min: Baseline Cr of appx 1.3. Creatinine currently 1.3, stable for six days on Lasix -Avoid nephrotoxins -Renal dosing where needed follow BMP continue Lasix 40mg IV BID (9) Diabetes mellitus: Chronic. Well controlled with [id number] on 02/04/20 -hold home Glipizide and Metformin -Now with some hyperglycemia with starting IV Solu-Medrol -Diabetic diet lantus 8 units while on steroids Novolog SS reducing Prednisone to 20mg daily (10) Idiopathic interstitial pneumonia: Chronic. Patient on 4-5L NC at baseline and reports his saturations are typically in the 80's to low 90's. He has seen Drs. Mcgraw and Shirley Dailey in the office. -Continue supplemental O2 - back on HFNC currently -Hold home prednisone 3mg po daily. Patient on snf chronic steroids - on Prednisone 20mg daily right now (11) Peripheral arterial disease: Chronic. History of stents and angioplasty to bilateral LEs. Patient follows with Dr. Ramos. -Continue ASA 81mg po daily -Continue Plavix 75mg po daily -warfarin as below holding statin while on Dapto (12) History of DVT (deep vein thrombosis): INR 4.0 today, will hold Coumadin normally on 7.5mg daily check INR in morning (13) Essential thrombocytosis: Chronic Could be due to infection in setting of taking hydroxyurea resolved on 03/03 -Continue to HOLD Hydroxyurea (14) Rheumatoid arthritis: Chronic -Continue daily Prednisone 3 mg once daily once done with taper (15) Leukocytosis: WBC count frequently elevated and more so at 27k Could be stress response, could be also as he was discontinued from his hydroxyurea recently -Remains afebrile, could have a developing pneumonia in bases using Zosyn (16) DVT prophylaxis: Coumadin on hold, INR is 4.0 Disposition- downgrade to medical floor After discussion with patient, he is decided to be a DNR/DNI plan for [facility] on discharge, will need to be stable on 6L or less will need 4-6 weeks of Cefazolin, has IV access anticipate patient being hospitalized several more days to improve oxygenation if he does not improve or if he deteriorates, would get palliative consultation Admission and Anticipated Discharge Date Admission Date: February 23, 2020 Subjective patient desaturated over night, could not recover on oxymask, required HFNC despite desaturating, he feels fine this morning, no respiratory distress CXR personally viewed, has some increased consolidation in bases, could be atelectasis or infiltrate no change in cough, no fever, WBC is going up at 27k d/w Dr. Coy, encourage OOB, continue Lasix, continue current dose of Prednisone we will broaden antibiotics to Zosyn to cover nosocomial pneumonia updated patient's daughter at the bedside this will delay planned discharge to [facility], will need to be stable on 6L or less to go there he is eating fairly well, moving his bowels, continues to make a lot of urine with Lasix BID Cr is 1.39 and K is 3.4 Review of Systems Review of Systems: All systems reviewed & are unremarkable except as noted in Subjective Constitutional: + fatigue and + weakness; no fever Respiratory: + dyspnea and + dyspnea on exertion; no cough and no wheezing Cardiovascular: no chest pain and no edema Gastrointestinal: no abdominal pain, no nausea, no vomiting, no constipation and no diarrhea/loose stools Musculoskeletal: + joint pain (right foot pain) Physical Exam Constitutional: well developed, + thin, + frail appearing and cooperative; no acute distress Eyes: PERRL, conjunctivae normal, anicteric sclerae ENMT: external ear and nose normal, oropharynx normal Neck: trachea midline, no thyromegaly Respiratory: normal respiratory effort; no respiratory distress and no labored breathing Auscultation: + diminished lung sounds Cardiovascular: RRR, no murmur, no edema Gastrointestinal (Abdomen): normal bowel sounds, soft, nontender, no hepatosplenomegaly Musculoskeletal: Head/Neck/Chest: normocephalic, head atraumatic and neck supple Extremities: extremities normal to inspection and + abnormal strength (generalized weakness) 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 Skin: no rashes, warm and dry Neurologic: patellar DTR's 2+ bilat, sensation intact and PERRL, EOMI, accommodation nl, no face palsy, no dysarthria Psychiatric: A+Ox3, euthymic affect Lymphatic: no cervical or axillary lymphadenopathy Results & Data Results & Data ([facility]) Vital Signs (Past 12 Hours) Vital Signs Temp Pulse Resp BP Pulse Ox 03/05/20 15:30 87 L 03/05/20 15:08 77 18 87 L 03/05/20 11:53 77 16 86 L 03/05/20 08:02 36.8 C 67 18 133/68 89 L 03/05/20 07:41 65 18 87 L 03/05/20 06:48 65 18 85 L 03/05/20 04:04 77 L Laboratory Results Laboratory Results - last 24 hr 03/04/20 03/04/20 03/05/20 17:02 20:32 05:20 WBC RBC Hgb Hct MCV MCH MCHC RDW Std Deviation RDW Coeff of Dru Plt Count MPV PT 39.5 H INR 4.0 H Sodium Potassium Chloride Carbon Dioxide Anion Gap BUN Creatinine Est Cr Clr Drug Dosing Est GFR ( Amer) Est GFR (Non-Af Amer) BUN/Creatinine Ratio Glucose POC Glucose 160 H 291 H Calcium 03/05/20 03/05/20 03/05/20 05:20 05:20 08:11 WBC 27.10 H RBC 3.46 L Hgb 8.8 L Hct 31.5 L MCV 91.0 MCH 25.4 MCHC 27.9 L RDW Std Deviation 63.1 H RDW Coeff of Dru 19.4 H Plt Count 339 MPV 11.7 H PT INR Sodium 138 Potassium 3.4 L Chloride 101 Carbon Dioxide 30 Anion Gap 7.0 BUN 56 H Creatinine 1.39 Est Cr Clr Drug Dosing 37.9 Est GFR ( Amer) 55.1 Est GFR (Non-Af Amer) 47.5 BUN/Creatinine Ratio 40.4 H Glucose 109 H POC Glucose 161 H Calcium 8.2 L 03/05/20 12:02 WBC RBC Hgb Hct MCV MCH MCHC RDW Std Deviation RDW Coeff of Dru Plt Count MPV PT INR Sodium Potassium Chloride Carbon Dioxide Anion Gap BUN Creatinine Est Cr Clr Drug Dosing Est GFR ( Amer) Est GFR (Non-Af Amer) BUN/Creatinine Ratio Glucose POC Glucose 201 H Calcium Diagnostic Findings Chest x-ray IMPRESSION: 1. Cardiomegaly with mild pulmonary vascular congestion. 2. Emphysema, chronic interstitial thickening, and numerous tiny pulmonary nodules is similar in appearance to previous. 3. There is increasing bibasilar airspace consolidation is compared to 03/03/2020. Clinically for evidence of pneumonia/aspiration pneumonitis. 4. Small pleural effusions. Medications Administered Current Inpatient Medications Acetaminophen (Tylenol) 1,000 mg PO Q8 RA Stop: 03/24/20 21:59 Last Admin: 03/05/20 14:06 Dose: 1,000 mg Documented by: Al Hydrox/Mg Hydrox/Simethicone (Maalox) 15 ml PO Q4H PRN PRN Reason: Heartburn Stop: 03/24/20 17:26 Albuterol (Duoneb) 3 ml NEB Q4R RA Stop: 03/24/20 18:59 Last Admin: 03/05/20 15:01 Dose: 3 ml Documented by: Aspirin (Ecotrin Ectab) 81 mg PO HS RA Stop: 03/24/20 20:59 Last Admin: 03/04/20 21:18 Dose: 81 mg Documented by: Bisacodyl (Dulcolax) [address] DAILY PRN PRN Reason: Constipation Stop: 03/24/20 17:26 Clopidogrel Bisulfate (Plavix) 75 mg PO PM RA Stop: 03/24/20 20:59 Last Admin: 03/04/20 21:17 Dose: 75 mg Documented by: Dextrose (Dextrose 50%) 25 - 50 ml IV UD PRN; Protocol PRN Reason: Hypoglycemia Protocol Stop: 03/24/20 18:22 Last Admin: 02/24/20 21:25 Dose: 50 ml Documented by: Diphenhydramine HCl (Benadryl Capsule) 25 mg PO Q8H PRN PRN Reason: Itching Stop: 03/24/20 17:26 Docusate Sodium (Colace) 100 mg PO BID RA Stop: 03/24/20 20:59 Last Admin: 03/05/20 11:14 Dose: 100 mg Documented by: Glucagon (Glucagen) 1 mg SQ UD PRN; Protocol PRN Reason: Hypoglycemia Protocol Stop: 03/24/20 18:22 Glucose (Dex4 Glucose) 4 - 8 tabs PO UD PRN; Protocol PRN Reason: Hypoglycemia Protocol Stop: 03/24/20 18:22 Glucose (Glucose 40%) 15 - 30 gm PO UD PRN; Protocol PRN Reason: Hypoglycemia Protocol Stop: 03/24/20 18:22 Heparin Sodium (Beef Lung) (Heparin Sod 10 Unit/Ml Flush) 5 ml FLUSH PRN PRN PRN Reason: Flush Stop: 03/27/20 00:08 Last Admin: 03/04/20 00:17 Dose: 5 ml Documented by: Hydromorphone HCl (Dilaudid) 0.5 mg IV Q4H PRN PRN Reason: Pain or Pre PT Stop: 03/08/20 17:26 Last Admin: 03/05/20 12:28 Dose: 0.5 mg Documented by: Cefazolin Sodium (Ancef 2000mg) 2,000 mg in 15 mls @ 3.75 mls/min IV Q8H [facility] Stop: 04/12/20 07:59 Last Admin: 03/05/20 10:00 Dose: 3.75 mls/min Documented by: Furosemide 40 mg/ Syringe 4 mls @ 4 mls/min IV BID17 [facility] Stop: 04/02/20 16:59 Last Admin: 03/05/20 10:00 Dose: 4 mls/min Documented by: Piperacillin Sod/Tazobactam (Sod 3.375 gm/ Dextrose) 115 mls @ 28.75 mls/hr IV Q8H [facility]; Protocol Stop: 03/12/20 17:59 Insulin Aspart (Novolog Flexpen) 0 units SC ACHS RA Stop: 03/24/20 20:59 Last Admin: 03/05/20 13:55 Dose: 7 units Documented by: Insulin Glargine (Lantus Solostar Pen) 8 units SC HS [facility] Stop: 03/28/20 20:59 Last Admin: 03/04/20 21:23 Dose: 8 units Documented by: Magnesium Hydroxide (Milk Of Magnesia) 30 ml PO Q6H PRN PRN Reason: Constipation Stop: 03/24/20 17:26 Last Admin: 03/05/20 11:24 Dose: 30 ml Documented by: Metoclopramide HCl (Reglan) 10 mg IV Q6H PRN PRN Reason: Nausea And Vomiting Stop: 03/24/20 17:26 Miscellaneous (Carbohydrates For Hypoglycemia) 15 - 30 gm PO UD PRN PRN Reason: Hypoglycemia Protocol Stop: 03/24/20 18:22 Miscellaneous Information (Consult) 1 ea N/A UD PRN PRN Reason: Consult Stop: 04/04/20 12:16 Multivitamins (Multivitamin Tab) 1 tab PO QAM [facility] Stop: 03/25/20 08:59 Last Admin: 03/05/20 09:52 Dose: 1 tab Documented by: Mupirocin (Bactroban 2%) 1 appln EXT BID PRN PRN Reason: SKIN BREAKDOWN Stop: 03/24/20 18:58 Naloxone HCl (Narcan) 0.1 mg IV Q5M PRN PRN Reason: Oversedation/Resp Depression Stop: 03/24/20 17:26 Ondansetron HCl (Zofran) 4 mg IV Q6H PRN PRN Reason: Nausea And Vomiting Stop: 03/24/20 17:26 Oxycodone HCl (Roxicodone Immediate Rel) 5 - 10 mg PO Q4H PRN PRN Reason: Pain or Pre PT Stop: 03/08/20 17:26 Last Admin: 03/03/20 22:42 Dose: 5 mg Documented by: Pantoprazole Sodium (Protonix) 40 mg PO QAM RA Stop: 03/28/20 10:59 Last Admin: 03/05/20 09:51 Dose: 40 mg Documented by: Potassium Chloride (Klor-Con M20) 20 meq PO BID [facility] Stop: 03/06/20 09:01 Last Admin: 03/05/20 11:14 Dose: 20 meq Documented by: Prednisone (Prednisone) 20 mg PO DAILY [facility] Stop: 04/04/20 08:59 Last Admin: 03/05/20 09:52 Dose: 20 mg Documented by: Sennosides (Senokot) 17.2 mg PO HS [facility] Stop: 03/24/20 20:59 Last Admin: 03/04/20 21:18 Dose: 17.2 mg Documented by: Tamsulosin HCl (Flomax) 0.4 mg PO QAM PRN PRN Reason: unable to void Stop: 03/24/20 17:26 Tramadol HCl (Ultram) 50 - 100 mg PO Q4H PRN PRN Reason: Pain & Pre PT Stop: 03/24/20 17:26 Last Admin: 03/05/20 00:08 Dose: 100 mg Documented by: Warfarin Sodium (Coumadin) 7.5 mg PO DAILY@1600 RA Stop: 03/27/20 15:59 Last Admin: 03/04/20 16:45 Dose: 7.5 mg Documented by: PG Care Time/CCT Total # of Minutes Spent Total Time Spent with Patient: Total time spent is greater than 50% in coordination of care (as documented) at patient's floor/unit and/or counseling patient: Coding Level of Care Code 57332 Subseq Hosp Care Lvl 3 Diagnoses Acute and chronic respiratory failure with hypoxia J96.21 Osteomyelitis M86.9 Laterality: right Osteomyelitis location: foot Osteomyelitis type: unspecified type Anemia D64.9 Anemia type: unspecified type Aortic valve stenosis I35.0 Cardiac valve disease etiology: etiology unspecified Arteriosclerotic cardiovascular disease (ASCVD) I25.10 Benign hypertension I10 Chronic diastolic CHF (congestive heart failure) I50.32 CKD (chronic kidney disease) stage 3, GFR 30-59 ml/min N18.3 Diabetes mellitus E11.9 Diabetes mellitus complication status: without complication Diabetes mellitus snf insulin use: without termite exterminator use Diabetes mellitus type: type 2 Idiopathic interstitial pneumonia J84.111 Peripheral arterial disease I73.9 History of DVT (deep vein thrombosis) Z86.718 Essential thrombocytosis D47.3 Rheumatoid arthritis M06.9 Rheumatoid arthritis location: unspecified site Rheumatoid factor presence: unspecified presence Leukocytosis D72.829 DVT prophylaxis Z29.9 (1) Rheumatoid arthritis Rheumatoid arthritis location: unspecified site Rheumatoid factor presence: unspecified presence Qualified Code(s): M06.9 - Rheumatoid arthritis, unspecified (2) Diabetes mellitus Diabetes mellitus complication status: without complication Diabetes mellitus snf insulin use: without termite exterminator use Diabetes mellitus type: type 2 Qualified Code(s): E11.9 - Type 2 diabetes mellitus without complications (3) Anemia Anemia type: unspecified type Qualified Code(s): D64.9 - Anemia, unspecified (4) Aortic valve stenosis Cardiac valve disease etiology: etiology unspecified Qualified Code(s): I35.0 - Nonrheumatic aortic (valve) stenosis (5) Osteomyelitis Laterality: right Osteomyelitis location: foot Osteomyelitis type: unspecified type Qualified Code(s): M86.9 - Osteomyelitis, unspecified
[2020-03-05] MEDS: OXYCODONE HCL IR 5 MG TAB (IMMEDIATE RELEASE) PO PRN (17:01)
[2020-03-05] MEDS: PIPERACILLIN/TAZOBACTAM 3.375 GM in DEXTROSE 5% 100 ML IV SCH (18:15)
[2020-03-05] MEDS: INSULIN GLARGINE SOLOSTAR 100 UNITS/ML 3 ML PEN SC SCH (20:51)
[2020-03-05] MEDS: CLOPIDOGREL BISULFATE 75 MG TAB PO SCH (21:39)
[2020-03-05] MEDS: SENNA 8.6 MG TAB PO SCH (21:40)
[2020-03-05] MEDS: ASPIRIN 81 MG ECTAB PO SCH (21:40)
[2020-03-06] MEDS: PIPERACILLIN/TAZOBACTAM 3.375 GM in DEXTROSE 5% 100 ML IV SCH ×3 (03:21→17:42)
[2020-03-06] MEDS: ALBUT/IPRATROP 3MG/0.5MG NEB 3 ML VIAL NEB SCH ×6 (03:26→23:15)
[2020-03-06] MEDS: ACETAMINOPHEN 500 MG TAB PO SCH ×3 (06:29→21:11)
--- NOTE | 2020-03-06 07:18 | XRay Report ---
XR chest 1V portable HISTORY: 79 years-old Male Hypoxia acute hypoxia COMPARISON: Chest radiograph 03/05/2020, chest CT 02/23/2020 TECHNIQUE: Portable AP view of the chest FINDINGS: Cardiac silhouette is enlarged, unchanged. Emphysema with chronic interstitial coarsening. Numerous t iny pulmonary nodules redemonstrated. Calcific granuloma of the right upper lung, 1.4 cm. patchy bila teral airspace opacities have slightly progressed. Mild right hemidiaphragmatic elevation. Small pleu ral effusions. No pneumothorax. Degenerative changes of the shoulders and spine. Right-sided PICC dis shalonda tip terminates in the superior aspect of the right atrium. Mild pulmonary vascular congestion. IMPRESSION: 1. Cardiomegaly with pulmonary vascular congestion and probable pulmonary edema. 2. Emphysema. 3. Progressively worsened bilateral patchy airspace opacities suspicious for multifocal pneumonitis. 4. Trace pleural effusions. ACT 112: Negative or not required by law. The above report was generated using voice recognition software. It may contain grammatical, syntax o r spelling errors. Electronically signed by: Rahul Juarez M.D. 03/06/2020 7:17 AM
[2020-03-06] MEDS: POTASSIUM CHLORIDE 20 MEQ TABCR PO SCH (09:02)
[2020-03-06] MEDS: predniSONE 20 MG TAB PO SCH (09:02)
[2020-03-06] MEDS: MULTIVITAMIN TAB PO SCH (09:03)
[2020-03-06] MEDS: FUROSEMIDE 40 MG in SYRINGE 0 ML IV SCH ×2 (09:03→17:42)
[2020-03-06] MEDS: PANTOprazole 40 MG TAB PO SCH (09:03)
[2020-03-06] MEDS: INSULIN ASPART 100 UNITS/ML 3 ML PEN SC SCH ×4 (09:06→21:05)
[2020-03-06] MEDS: DOCUSATE SODIUM 100 MG CAP PO SCH ×2 (09:09→20:02)
[2020-03-06 09:46] LABS: Hematocrit (blood only) 31.8 % (42-52); Hemoglobin 8.8 g/dL (14.0-18.0); Mean Corpuscular Hemoglobin 25.2 pg (25-34); Mean Corpuscular Hgb Conc 27.7 g/dL (32-36); Mean Corpuscular Volume 91.1 fL (80-100); Mean Platelet Volume 12.3 fL (7.4-10.4); Platelet Count 414 K/uL (130-400); RDW Coefficient of Variation 20.3 % (11.5-14.5); RDW Standard Deviation 63.9 fL (36.4-46.3); Red Blood Count 3.49 M/uL (4.7-6.1); White Blood Count 30.69 K/uL (4.8-10.8)
[2020-03-06 09:56] LABS: INR 2.6 (0.9-1.1); Prothrombin Time 26.3 Seconds (9.0-12.0)
[2020-03-06] MEDS ORDERED: INSULIN GLARGINE SOLOSTAR 100 UNITS/ML 3 ML PEN SC SCH ×2 (10:00→21:00)
[2020-03-06 10:27] LABS: BUN Creatinine Ratio 39.1 (10-20); Calcium 8.6 mg/dl (8.5-10.1); Creatinine Clr Calc Pharmacy 37.4 ml/min; Est GFR (African American) 54.6; Est GFR (Non-African American) 47.1; Potassium 3.6 mmol/L (3.5-5.1)
[2020-03-06 10:39] LABS: Anisocytosis Present; Basophils # (auto) 0.02 K/uL (0-0.2); Basophils % (auto) 0.1 %; Eosinophils # (auto) 0.27 K/uL (0-0.5); Eosinophils % (auto) 0.9 %; Lymphocytes # (auto) 1.26 K/uL (1.2-3.4); Lymphocytes % (auto) 4.1 %; Monocytes # (auto) 1.66 K/uL (0.11-0.59); Monocytes % (auto) 5.4 %; Neutrophils # (auto) 27.18 K/uL (1.4-6.5); Neutrophils % (auto) 88.5 %; Polychromasia 1+; Stomatocytes 1+
--- NOTE | 2020-03-06 12:11 | Pulmonology Progress Note ---
Date of Service March 06, 2020 Assessment & Plan (1) Hypoxia: Impression: 79-year-old male with chronic hypoxemic respiratory failure and oxygen requirement of 4 L at baseline presenting now status post I&D of osteomyelitis of right toe. Patient developed hypoxemic respiratory failure in conjunction with receiving some packed cells. He had initially improved with steroids and diuresis and was down to his baseline oxygen requirement yesterday however it has creeped up overnight. Unclear if he may have some concomitant nocturnal hypoventilation superimposed on interstitial lung disease. Recommendations: Patient continues to require high flow supplemental oxygen. He is currently re maining at 30 L/min with an FiO2 of 60% Saturations are in the mid 90s Continue to titrate high flow O2 as tolerated. Patient does have progressively increasing white count but this seems to be correlated with steroid administration Chest x-ray shows some increase in opacities consistent with pneumonitis. Procalcitonin is elevated at 0.26 but this is not a good marker inasmuch as patient has known infection to his right lower extremity Continue treat with broad-spectrum antibiotics (cefazolin and Zosyn) Out of bed to chair as tolerated (2) Abnormal CT scan of lung: Multifactorial Interstitial lung disease as well as pneumonitis Patient with chronic hypoxemic failure Continue treat as above Not a good candidate for surgical biopsy Follow-up in outpatient office on discharge (3) Interstitial lung disease: Patient was started on steroids this admission which seemed to show some improvement Currently 20 mg of prednisone daily Continue supplemental oxygen to maintain saturation between 85 and 90% Increase activity as tolerated Continue pulmonary toilet and incentive spirometry (4) Moderate protein-energy malnutrition: Recommendations per nutrition (5) History of methicillin resistant staphylococcus aureus (MRSA): Biopsy of right foot in January revealed MRSA. Biopsy this admission shows MSSA Case discussed with Dr. Braun from infectious disease at [facility] Patient changed to cefazolin 2 g IV every 8 hours. This should be continued for an additional 4 to 6 weeks. Thank very much for including us in the care of this patient. We will continue to follow along with you. Please refer to Dr. Coy's addendum for further recommendations. Admission and Anticipated Discharge Date Admission Date: February 23, 2020 Supervising Physician Co-Signing Physician Notes Seen and examined. Agree with SONNY moreno's note as noted. We will continue to treat for any potential reversible causes of hypoxemia and respiratory failure with aggressive pulmonary toilet, diuresis, antibiotics, and steroids. Would not recommend an invasive approach at this point time as it is unlikely to alter management. Wean oxygen as tolerated. Overall prognosis is guarded. Subjective Attending Dr. Coy Patient seen and examined at bedside sitting in bedside chair. Patient states that he feels like he is at baseline from his breathing. However, he remains on high flow at 30 L/min with an FiO2 of 60%. He is saturating in the mid 90s so this can be cut back. Patient has no fever or chills. He states that his cough and sputum production is typical as is at home. He denies any other acute complaints regarding his pulmonary status. Review of Systems Review of Systems: All systems reviewed & are unremarkable except as noted in HPI & below Physical Exam Physical Exam: GENERAL : No acute distress EYES: No icterus, gaze conjugate NOSE: No evidence of epistaxis MOUTH: No lesions or candidiasis NECK: Supple LUNGS: Decreased bilateral bases. Otherwise, CTA B/L, no wheezes, rales or rhonchi HEART: Regular, rate controlled ABDOMEN: Soft, NT, ND, BS Present EXTREMITIES: No LE edema, pedal pulses intact NEURO: A&OX3 Results & Data Results & Data ([facility]) Vital Signs (Past 12 Hours) Vital Signs Temp Pulse Resp BP Pulse Ox 03/06/20 11:11 65 20 99 03/06/20 07:48 36.4 C L 74 18 113/60 86 L 03/06/20 07:28 66 20 86 L 03/06/20 07:19 69 20 73 L 03/06/20 03:27 71 20 86 L Laboratory Results 03/06/20 09:16 03/06/20 09:16 Diagnostic Findings XR chest 1V portable HISTORY: 79 years-old Male Hypoxia acute hypoxia COMPARISON: Chest radiograph 03/05/2020, chest CT 02/23/2020 TECHNIQUE: Portable AP view of the chest FINDINGS: Cardiac silhouette is enlarged, unchanged. Emphysema with chronic interstitial coarsening. Numerous tiny pulmonary nodules redemonstrated. Calcific granuloma of the right upper lung, 1.4 cm. patchy bilateral airspace opacities have slightly progressed. Mild right hemidiaphragmatic elevation. Small pleural effusions. No pneumothorax. Degenerative changes of the shoulders and spine. Right-sided PICC distal tip terminates in the superior aspect of the right atrium. Mild pulmonary vascular congestion. IMPRESSION: 1. Cardiomegaly with pulmonary vascular congestion and probable pulmonary edema. 2. Emphysema. 3. Progressively worsened bilateral patchy airspace opacities suspicious for multifocal pneumonitis. 4. Trace pleural effusions. Electronically signed by: Rahul Juarez M.D. 03/06/2020 7:17 AM PG Care Time/CCT Total # of Minutes Spent Total Time Spent with Patient: Total time spent is greater than 50% in coordination of care (as documented) at patient's floor/unit and/or counseling patient: 30 minutes Coding Level of Care Code 50642 Subseq Hosp Care Lvl 2 Diagnoses Hypoxia R09.[address] scan of lung R91.8 Interstitial lung disease J84.9 Moderate protein-energy malnutrition E44.0 History of methicillin resistant staphylococcus aureus (MRSA) Z86.14 Time Spent (min) 30
[2020-03-06] MEDS ORDERED: WARFARIN SOD 5 MG TAB PO ONE (16:32)
--- NOTE | 2020-03-06 19:45 | Hospitalist Progress Note ---
Date of Service March 06, 2020 Assessment & Plan (1) Acute and chronic respiratory failure with hypoxia: acute resp failure initially thought to be volume overload/acute on chronic diastolic CHF in setting of receiving blood transfusion earlier this admission. has received diuresis for such since. Pulmonary following since then. HFNC had been weaned down to oxymask, then resp status worsened on 03/04. this coincided with worsening leukocytosis. to cover for possible of hospital-acquired pneumonia/gram negative pneumonia he was placed on zosyn on 03/05. today he is still requiring 8 L via oxymask but is in no distress. check MRSA swab and if + consider MRSA coverage; cont zosyn. cont diuresis w/ lasix. cont chronic prednisone. COVID-19 test 02/18/20 was negative. consider repeat. 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 (2) Osteomyelitis: Patient with history of PAD, DM, osteomyelitis of RLE s/p right foot irrigation and debridement performed here with skin graft by Dr Dumont. Now with MSSA from current wound. Telehealth ID consult completed. They recommended 4-6 weeks of cefazolin IV on discharge. Ancef placed on hold when zosyn was started on 03/05 for pneumonia/pneumonitis. (3) Anemia: Chronic. Baseline Hgb 8-9. On hydroxyurea for chronic thrombocytosis. Received 1/2 unit PRBCs on 02/22 and developed worsening resp failure requiring diuresis and BiPAP. Uncertain if TACO. Prior attending MD discussed care w/ heme/onc -- hydroxyurea on hold for now. H/H acceptable. (4) Aortic valve stenosis: Mild-moderate. (5) Arteriosclerotic cardiovascular disease (ASCVD): Continue ASA, Plavix Holding MEGAN due to low-normal BPs. (6) Benign hypertension: Holding Lisinopril/HCTZ due to low-normal BPs. BP stable today. (7) Chronic diastolic CHF (congestive heart failure): acute/chronic. improving. remains on lasix 40mg BID. BUN and Cr stable. BMP in am. re-eval for ongoing lasix tomorrow. (8) CKD (chronic kidney disease) stage 3, GFR 30-59 ml/min: Baseline Cr 1.3. Cr cont to remain stable. BMP am. (9) Diabetes mellitus: Uncontrolled. Increase lantus to 8 units BID. Adjust novolog. Cont to hold home Glipizide and Metformin. (10) Idiopathic interstitial pneumonia: Chronic. Patient on 4-5L NC at baseline. Follows with Drs. Mcgraw and Shirley Dailey in the office. Typically on prednisone 3mg po daily. Cont Prednisone 20mg daily given acute issues. 2nd to rheumatoid lung? other? (11) Peripheral arterial disease: Chronic. History of stents and angioplasty to bilateral LEs. Patient follows with Dr. Ramos. -Continue ASA 81mg po daily -Continue Plavix 75mg po daily (12) History of DVT (deep vein thrombosis): INR 2.6 today had been >3 resume coumadin but give 5mg x 1 only today repeat INR am (13) Essential thrombocytosis: Chronic Holding hydroxyurea (14) Rheumatoid arthritis: Chronic On daily Prednisone 3 mg once daily typically (15) Bone lesion: seen by Dr Amador at [facility] early this year. At that time PSA was normal. Etiology uncertain. Primary cancer site undetermined. Patient was not wanting aggressive w/u at that time. Will repeat PSA in am. poor candidate for Rx even if primary site is determined. of note - had bladder ca in past; underwent cystoscopy early 2019 w/o recurrence. (16) DVT prophylaxis: Coumadin DNR/DNI plan for [facility] on discharge Admission and Anticipated Discharge Date Admission Date: February 23, 2020 Subjective patient sitting in chair comfortably during my visit. on oxymask. states he feels his breathing is near baseline. typically on 4 L NC O2 at home. very little cough. no chest pain. no abd pain. appetite fair. Review of Systems Constitutional: + fatigue; no fever and no chills Respiratory: no hemoptysis and no wheezing Cardiovascular: no chest pain and no orthopnea Gastrointestinal: no abdominal pain Musculoskeletal: denies right foot pain Physical Exam Constitutional: + thin and + frail appearing; no acute distress and no altered mental status ENMT: external ear and nose normal, oropharynx normal Respiratory: no respiratory distress Auscultation: + diminished lung sounds (Bases ) and + crackles; no wheezes Cardiovascular: Rate/Rhythm: regular rate and regular rhythm Heart Sounds: normal S1, normal S2 and + murmur (2/6 RUSB - systolic) Vessels: + JVD, pos terior tibial pulses present and dorsalis pedis pulses present Extremities: no edema Gastrointestinal (Abdomen): normal bowel sounds, soft, nontender, no hepatosplenomegaly Musculoskeletal: right foot dressings intact Psychiatric: Orientation: alert and oriented x 3 Results & Data Results & Data ([facility]) Vital Signs (Past 12 Hours) Vital Signs Temp Pulse Resp BP Pulse Ox 03/06/20 19:10 74 18 100 03/06/20 15:51 37.1 C 71 18 114/59 L 93 03/06/20 15:13 73 20 88 L 03/06/20 13:18 72 20 87 L 03/06/20 11:11 65 20 99 03/06/20 07:48 36.4 C L 74 18 113/60 86 L Laboratory Results Laboratory Results - last 24 hr 03/05/20 03/06/20 03/06/20 20:45 08:09 09:16 WBC 30.69 H* RBC 3.49 L Hgb 8.8 L Hct 31.8 L MCV 91.1 MCH 25.2 MCHC 27.7 L RDW Std Deviation 63.9 H RDW Coeff of Dru 20.3 H Plt Count 414 H MPV 12.3 H Immature Gran % (Auto) 1.0 Neut % (Auto) 88.5 Lymph % (Auto) 4.1 Wood % (Auto) 5.4 Eos % (Auto) 0.9 Baso % (Auto) 0.1 Neut # (Auto) 27.18 H Lymph # (Auto) 1.26 Wood # (Auto) 1.66 H Eos # (Auto) 0.27 Baso # (Auto) 0.02 Immature Gran # (Auto) 0.30 H Polychromasia 1+ Anisocytosis Present Stomatocytes 1+ PT INR Sodium Potassium Chloride Carbon Dioxide Anion Gap BUN Creatinine Est Cr Clr Drug Dosing Est GFR ( Amer) Est GFR (Non-Af Amer) BUN/Creatinine Ratio Glucose POC Glucose 220 H 190 H Calcium Procalcitonin 03/06/20 03/06/20 03/06/20 09:16 09:16 09:16 WBC RBC Hgb Hct MCV MCH MCHC RDW Std Deviation RDW Coeff of Dru Plt Count MPV Immature Gran % (Auto) Neut % (Auto) Lymph % (Auto) Wood % (Auto) Eos % (Auto) Baso % (Auto) Neut # (Auto) Lymph # (Auto) Wood # (Auto) Eos # (Auto) Baso # (Auto) Immature Gran # (Auto) Polychromasia Anisocytosis Stomatocytes PT 26.3 H INR 2.6 H Sodium 140 Potassium 3.6 Chloride 101 Carbon Dioxide 29 Anion Gap 10.0 BUN 55 H Creatinine 1.40 Est Cr Clr Drug Dosing 37.4 Est GFR ( Amer) 54.6 Est GFR (Non-Af Amer) 47.1 BUN/Creatinine Ratio 39.1 H Glucose 242 H POC Glucose Calcium 8.6 Procalcitonin 0.26 03/06/20 03/06/20 03/06/20 12:05 17:12 17:14 WBC RBC Hgb Hct MCV MCH MCHC RDW Std Deviation RDW Coeff of Dru Plt Count MPV Immature Gran % (Auto) Neut % (Auto) Lymph % (Auto) Wood % (Auto) Eos % (Auto) Baso % (Auto) Neut # (Auto) Lymph # (Auto) Wood # (Auto) Eos # (Auto) Baso # (Auto) Immature Gran # (Auto) Polychromasia Anisocytosis Stomatocytes PT INR Sodium Potassium Chloride Carbon Dioxide Anion Gap BUN Creatinine Est Cr Clr Drug Dosing Est GFR ( Amer) Est GFR (Non-Af Amer) BUN/Creatinine Ratio Glucose POC Glucose 259 H 318 H* 326 H* Calcium Procalcitonin PG Care Time/CCT Total # of Minutes Spent Total Time Spent with Patient: Total time spent is greater than 50% in coordination of care (as documented) at patient's floor/unit and/or counseling patient: Coding Level of Care Code 26876 Subseq Hosp Care Lvl 3 Diagnoses Acute and chronic respiratory failure with hypoxia J96.21 Osteomyelitis M86.9 Laterality: right Osteomyelitis location: foot Osteomyelitis type: unspecified type Anemia D64.9 Anemia type: unspecified type Aortic valve stenosis I35.0 Cardiac valve disease etiology: etiology unspecified Arteriosclerotic cardiovascular disease (ASCVD) I25.10 Benign hypertension I10 Chronic diastolic CHF (congestive heart failure) I50.32 CKD (chronic kidney disease) stage 3, GFR 30-59 ml/min N18.3 Diabetes mellitus E11.9 Diabetes mellitus complication status: without complication 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 insulin use: without dedicated intermodal truck driver use Diabetes mellitus type: type 2 Idiopathic interstitial pneumonia J84.111 Peripheral arterial disease I73.9 History of DVT (deep vein thrombosis) Z86.718 Essential thrombocytosis D47.3 Rheumatoid arthritis M06.9 Rheumatoid arthritis location: unspecified site Rheumatoid factor presence: unspecified presence Bone lesion M89.9 DVT prophylaxis Z29.9 (1) Rheumatoid arthritis Rheumatoid arthritis location: unspecified site Rheumatoid factor presence: unspecified presence Qualified Code(s): M06.9 - Rheumatoid arthritis, unspecified (2) Diabetes mellitus Diabetes mellitus complication status: without complication Diabetes mellitus senior living insulin use: without dedicated intermodal truck driver use Diabetes mellitus type: type 2 Qualified Code(s): E11.9 - Type 2 diabetes mellitus without complications (3) Anemia Anemia type: unspecified type Qualified Code(s): D64.9 - Anemia, unspecified (4) Aortic valve stenosis Cardiac valve disease etiology: etiology unspecified Qualified Code(s): I35.0 - Nonrheumatic aortic (valve) stenosis (5) Osteomyelitis Laterality: right Osteomyelitis location: foot Osteomyelitis type: u nspecified type Qualified Code(s): M86.9 - Osteomyelitis, unspecified
[2020-03-06] MEDS: ASPIRIN 81 MG ECTAB PO SCH (20:00)
[2020-03-06] MEDS: CLOPIDOGREL BISULFATE 75 MG TAB PO SCH (20:01)
[2020-03-06] MEDS: SENNA 8.6 MG TAB PO SCH (20:01)
[2020-03-06] MEDS: OXYCODONE HCL IR 5 MG TAB (IMMEDIATE RELEASE) PO PRN (23:16)
[2020-03-07] MEDS: PIPERACILLIN/TAZOBACTAM 3.375 GM in DEXTROSE 5% 100 ML IV SCH ×3 (01:33→18:05)
[2020-03-07] MEDS: ALBUT/IPRATROP 3MG/0.5MG NEB 3 ML VIAL NEB SCH ×6 (02:14→22:45)
[2020-03-07] MEDS: ACETAMINOPHEN 500 MG TAB PO SCH ×3 (05:19→21:15)
[2020-03-07 06:05] LABS: Hematocrit (blood only) 31.1 % (42-52); Hemoglobin 8.5 g/dL (14.0-18.0); Mean Corpuscular Hemoglobin 25.4 pg (25-34); Mean Corpuscular Hgb Conc 27.3 g/dL (32-36); Mean Corpuscular Volume 92.8 fL (80-100); Platelet Count 454 K/uL (130-400); RDW Standard Deviation 64.1 fL (36.4-46.3); Red Blood Count 3.35 M/uL (4.7-6.1); White Blood Count 34.58 K/uL (4.8-10.8)
[2020-03-07 06:08] LABS: INR 2.2 (0.9-1.1); Prothrombin Time 22.5 Seconds (9.0-12.0)
[2020-03-07 06:28] LABS: BUN Creatinine Ratio 36.7 (10-20); Calcium 8.5 mg/dl (8.5-10.1); Creatinine Clr Calc Pharmacy 34.4 ml/min; Est GFR (African American) 48.3; Est GFR (Non-African American) 41.7; Potassium 3.5 mmol/L (3.5-5.1)
[2020-03-07 06:32] LABS: Prostate Specific Antigen 0.433 ng/ml (0-4)
[2020-03-07] MEDS ORDERED: INSULIN GLARGINE SOLOSTAR 100 UNITS/ML 3 ML PEN SC SCH (09:00)
[2020-03-07] MEDS: OXYCODONE HCL IR 5 MG TAB (IMMEDIATE RELEASE) PO PRN (09:00)
[2020-03-07] MEDS: MULTIVITAMIN TAB PO SCH (09:01)
[2020-03-07] MEDS: PANTOprazole 40 MG TAB PO SCH (09:03)
[2020-03-07] MEDS: predniSONE 20 MG TAB PO SCH (09:03)
[2020-03-07] MEDS: DOCUSATE SODIUM 100 MG CAP PO SCH ×2 (09:04→21:15)
[2020-03-07] MEDS: INSULIN ASPART 100 UNITS/ML 3 ML PEN SC SCH ×4 (09:06→21:06)
--- NOTE | 2020-03-07 12:49 | Pulmonology Progress Note ---
Date of Service March 07, 2020 Assessment & Plan (1) Hypoxia: Impression: 79-year-old male with chronic hypoxemic respiratory failure and oxygen requirement of 4 L at baseline presenting now status post I&D of osteomyelitis of right toe. Patient developed hypoxemic respiratory failure in conjunction with receiving some packed cells. He had initially improved with steroids and diuresis and was down to his baseline oxygen requirement yesterday however it has creeped up overnight. Unclear if he may have some concomitant nocturnal hypoventilation superimposed on interstitial lung disease. Recommendations: Patient continues to require high flow supplemental oxygen but has been weaned to and FiO2 of 35-45%. Saturations fluctuate from the high 70s to the mid 90s. He is a vasculopath and waveform is not consistent Continue to titrate high flow O2 as tolerated to oxymask/NC Chest x-ray shows some increase in opacities consistent with pneumonitis. Procalcitonin is elevated at 0.26 but this is not a good marker inasmuch as patient has known infection to his right lower extremity Continues to be treated with broad-spectrum antibiotics (cefazolin and Zosyn) Continue to increase activity as tolerated (2) Abnormal CT scan of lung: Multifactorial Interstitial lung disease as well as pneumonitis Patient with chronic hypoxemic failure Continue treat as above Not a good candidate for surgical biopsy Follow-up in outpatient office on discharge (3) Interstitial lung disease: Patient was started on steroids this admission which seemed to show some improvement Currently receiving 20 mg of prednisone daily Continue supplemental oxygen to maintain saturation between 85 and 88% Increase activity as tolerated Continue pulmonary toilet and incentive spirometry (4) Moderate protein-energy malnutrition: Recommendations per nutrition (5) History of methicillin resistant staphylococcus aureus (MRSA): Biopsy of right foot in January revealed MRSA. Biopsy this admission shows MSSA Case discussed with Dr. Braun from infectious disease at [facility] Patient changed to cefazolin 2 g IV every 8 hours. This should be continued for an additional 4 to 6 weeks. Thank very much for including us in the care of this patient. We will continue to follow along with you. Please refer to Dr. Coy's addendum for further recommendations. Admission and Anticipated Discharge Date Admission Date: February 23, 2020 Subjective Attending: Dr. Coy Patient seen at bedside and is with no acute distress. He is eating breakfast and has no apparent or admitted dyspnea. His SaO2 does drop into the low 80s and high 70s while eating with no SOB. He denies cough, fever, chills. He has no acute complaints. He has been weaned on [place] O2 to 30L/min and FiO2 of 45%. He also was placed on Oxymask for a short time yesterday. Respiratory therapy continues to work towards titration off of [place]. He has no acute complaints Review of Systems Review of Systems: All systems reviewed & are unremarkable except as noted in HPI & below Physical Exam Physical Exam: GENERAL : No acute distress. Cachectic appearing EYES: No icterus, gaze conjugate NOSE: No evidence of epistaxis MOUTH: No lesions or candidiasis NECK: Supple LUNGS: CTA B/L, no wheezes, rales or rhonchi HEART: Regular, rate controlled ABDOMEN: Soft, NT, ND, BS Present EXTREMITIES: No LE edema, pedal pulses intact NEURO: A&OX3 Results & Data Results & Data ([facility]) Vital Signs (Past 12 Hours) Vital Signs Temp Pulse Resp BP Pulse Ox 03/07/20 11:19 74 18 92 03/07/20 07:35 36.4 C L 67 14 138/67 82 L 03/07/20 07:10 81 18 90 03/07/20 07:09 81 18 90 03/07/20 02:15 61 16 92 Laboratory Results 03/07/20 05:48 03/07/20 05:48 Diagnostic Findings No new radiographs PG Care Time/CCT Total # of Minutes Spent Total Time Spent with Patient: Total time spent is greater than 50% in coordination of care (as documented) at patient's floor/unit and/or counseling patient: 25 minutes Coding Level of Care Code 76914 Subseq Hosp Care Lvl 2 Diagnoses Hypoxia R09.[address] scan of lung R91.8 Interstitial lung disease J84.9 Moderate protein-energy malnutrition E44.0 History of methicillin resistant staphylococcus aureus (MRSA) Z86.14 Time Spent (min) 25
[2020-03-07] MEDS: WARFARIN SOD 5 MG TAB PO SCH (16:53)
--- NOTE | 2020-03-07 20:01 | Hospitalist Progress Note ---
Date of Service March 07, 2020 Assessment & Plan (1) Acute and chronic respiratory failure with hypoxia: acute resp failure 2nd to volume overload and now a pneumonitis. patient's BUN and Cr rising in face of diuresis - will d/c diuretics. HFNC had been weaned down to oxymask, then resp status worsened on 03/04. this coincided with worsening leukocytosis. to cover for possible of hospital-acquired pneumonia/gram negative pneumonia he was placed on zosyn on 03/05. Thus, day #3 of such. still requiring 8 L via oxymask. MRSA swab neg; defer on vanco/MRSA coverage. cont chronic prednisone. COVID-19 test 02/18/20 was negative. consider repeat if any worsening of pulmonary status. 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 (2) Osteomyelitis: Patient with history of PAD, DM, osteomyelitis of right foot. 02/23/20 - Dr Dumont s/p - 1. Right foot irrigation and debridement of fifth metatarsal head ulcer measuring 3.0 cm x 2.75 cm full thickness. 2. Right foot irrigation and debridement of lateral distal ulcer including skin, fascia, dermis and joint capsule of fifth metatarsal head measuring 3 cm x 2.75 cm. 3. Application of TheraSkin split thickness skin allograft to fifth metatarsal head region, right foot. Now with MSSA from current wound. Telehealth ID consult completed. They recommended 4-6 weeks of cefazolin IV on discharge. Ancef placed on hold when zosyn was started on 03/05 for pneumonia/pneumonitis. (3) Anemia: Chronic. Baseline Hgb 8-9. On hydroxyurea for chronic thrombocytosis. Received 1/2 unit PRBCs on 02/22 and developed worsening resp failure requiring diuresis and BiPAP. Uncertain if TACO. Prior attending MD discussed care w/ heme/onc -- hydroxyurea on hold for now. H/H acceptable again today. (4) Arteriosclerotic cardiovascular disease (ASCVD): Continue ASA, Plavix Cont to hold MEGAN due to low-normal BPs. (5) Benign hypertension: Holding Lisinopril/HCTZ due to low-normal BPs. BPs stable again today. (6) Chronic diastolic CHF (congestive heart failure): acute/chronic. improving. seems to be near euvolemia as BUN and Cr are rising. HOLD lasix 40mg BID. (7) CKD (chronic kidney disease) stage 3, GFR 30-59 ml/min: Baseline Cr 1.3. Cr 1.55 today in face of diuresis. HOLD further lasix. BMP am. (8) Diabetes mellitus: Uncontrolled. Increase lantus to 14 units BID. Adjust novolog once again. Cont to hold home Glipizide and Metformin. (9) Idiopathic interstitial pneumonia: Chronic. Patient on 4-5L NC at baseline. Follows with Drs. Mcgraw and Shirley Dailey in the office. Typically on prednisone 3mg po daily. Cont Prednisone 20mg daily given acute issues. 2nd to rheumatoid lung? other? (10) Peripheral arterial disease: Chronic. History of stents and angioplasty to bilateral LEs. Patient follows with Dr. Ramos. -Continue ASA 81mg po daily -Continue Plavix 75mg po daily (11) History of DVT (deep vein thrombosis): INR 2.2 today had been >3 on two occasions this admission give 5mg of coumadin again today repeat INR am (12) Essential thrombocytosis: Chronic Holding hydroxyurea follows with heme/onc (13) Rheumatoid arthritis: Chronic On daily Prednisone 3 mg once daily typically (14) Bone lesion: As seen on CTA chest earlier this admission. Seen by Dr Amador at [facility] early this year for these bone lesions. At that time PSA was normal. Etiology uncertain. Primary cancer site undetermined. Patient was not wanting aggressive w/u at that time. Repeat PSA today acceptable. Had bladder ca in past; underwent cystoscopy early 2019 w/o recurrence. Today patient states emphatically he does NOT want work-up or Rx. (15) Aortic valve stenosis: Mild-moderate. Likely not contributing to clinical issues. (16) DVT prophylaxis: Coumadin DNR/DNI plan for [facility] on discharge Admission and Anticipated Discharge Date Admission Date: February 23, 2020 Subjective like yesterday patient sitting comfortably in chair. oxymask in place - 8 L. good appetite. scant cough. no dyspnea at rest. easily desaturates with activity. minimal right foot pain. no abd pain. overall feels good. we had a discussion about bone lesions seen on imaging going back to earlier this year. he remembers his visit at the cancer center. he does NOT want to pursue work-up or treatment. Review of Systems Constitutional: no fever and no chills Respiratory: no wheezing Cardiovascular: no chest pain Gastrointestinal: no abdominal pain, no nausea and no vomiting Physical Exam Constitutional: + thin and + frail appearing; no acute distress and no altered mental status ENMT: external ear and nose normal, oropharynx normal Respiratory: no respiratory distress Auscultation: + diminished lung sounds (Bases ); no crackles and no wheezes Cardiovascular: Rate/Rhythm: regular rate and regular rhythm Heart Sounds: normal S1, normal S2 and + murmur (2/6 RUSB - systolic) Vessels: posterior tibial pulses present and dorsalis pedis pulses present; no JVD Extremities: no edema Gastrointestinal (Abdomen): normal bowel sounds, soft, nontender, no hepatosplenomegaly Musculoskeletal: 2nd toe, right foot, partially amputated; cap refill right foot about 3 seconds Skin: right foot dressing in place Psychiatric: Orientation: alert and oriented x 3 Results & Data Results & Data ([facility]) Vital Signs (Past 12 Hours) Vital Signs Pulse Resp Pulse Ox 03/07/20 19:21 72 17 92 03/07/20 18:35 70 20 88 L 03/07/20 15:05 84 18 85 L 03/07/20 12:43 89 L 03/07/20 11:19 74 18 92 Laboratory Results Laboratory Results - last 24 hr 03/06/20 03/07/20 03/07/20 20:48 05:30 05:48 WBC RBC Hgb Hct MCV MCH MCHC RDW Std Deviation RDW Coeff of Dru Plt Count MPV PT 22.5 H INR 2.2 H Sodium Potassium Chloride Carbon Dioxide Anion Gap BUN Creatinine Est Cr Clr Drug Dosing Est GFR ( Amer) Est GFR (Non-Af Amer) BUN/Creatinine Ratio Glucose POC Glucose 253 H Calcium Prostate Specific Ag Nasal Screen MRSA (PCR) Negative 03/07/20 03/07/20 03/07/20 05:48 05:48 08:15 WBC 34.58 H* RBC 3.35 L Hgb 8.5 L Hct 31.1 L MCV 92.8 MCH 25.4 MCHC 27.3 L RDW Std Deviation 64.1 H RDW Coeff of Dru 20.0 H Plt Count 454 H MPV 12.0 H PT INR Sodium 139 Potassium 3.5 Chloride 103 Carbon Dioxide 30 Anion Gap 6.0 BUN 57 H Creatinine 1.55 H Est Cr Clr Drug Dosing 34.4 Est GFR ( Amer) 48.3 Est GFR (Non-Af Amer) 41.7 BUN/Creatinine Ratio 36.7 H Glucose 71 POC Glucose 105 H Calcium 8.5 Prostate Specific Ag 0.433 Nasal Screen MRSA (PCR) 03/07/20 12:05 WBC RBC Hgb Hct MCV MCH MCHC RDW Std Deviation RDW Coeff of Dru Plt Count MPV PT INR Sodium Potassium Chloride Carbon Dioxide Anion Gap BUN Creatinine Est Cr Clr Drug Dosing Est GFR ( Amer) Est GFR (Non-Af Amer) BUN/Creatinine Ratio Glucose POC Glucose 210 H Calcium Prostate Specific Ag Nasal Screen MRSA (PCR) PG Care Time/CCT Total # of Minutes Spent Total Time Spent with Patient: Total time spent is greater than 50% in coordina tion of care (as documented) at patient's floor/unit and/or counseling patient: Coding Level of Care Code 55878 Subseq Hosp Care Lvl 2 Diagnoses Acute and chronic respiratory failure with hypoxia J96.21 Osteomyelitis M86.9 Osteomyelitis type: unspecified type Osteomyelitis location: foot Laterality: right Anemia D64.9 Anemia type: unspecified type Arteriosclerotic cardiovascular disease (ASCVD) I25.10 Benign hypertension I10 Chronic diastolic CHF (congestive heart failure) I50.32 CKD (chronic kidney disease) stage 3, GFR 30-59 ml/min N18.3 Diabetes mellitus E11.9 Diabetes mellitus type: type 2 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 use: without assisted use Diabetes mellitus complication status: without complication Idiopathic interstitial pneumonia J84.111 Peripheral arterial disease I73.9 History of DVT (deep vein thrombosis) Z86.718 Essential thrombocytosis D47.3 Rheumatoid arthritis M06.9 Rheumatoid arthritis location: unspecified site Rheumatoid factor presence: unspecified presence Bone lesion M89.9 Aortic valve stenosis I35.0 Cardiac valve disease etiology: etiology unspecified DVT prophylaxis Z29.9 (1) Osteomyelitis Osteomyelitis type: unspecified type Osteomyelitis location: foot Laterality: right Qualified Code(s): M86.9 - Osteomyelitis, unspecified (2) Anemia Anemia type: unspecified type Qualified Code(s): D64.9 - Anemia, unspecified (3) Aortic valve stenosis Cardiac valve disease etiology: etiology unspecified Qualified Code(s): I35.0 - Nonrheumatic aortic (valve) stenosis (4) Diabetes mellitus Diabetes mellitus type: type 2 Diabetes mellitus assisted insulin use: without termite exterminator use Diabetes mellitus complication status: without complication Qualified Code(s): E11.9 - Type 2 diabetes mellitus without complications (5) Rheumatoid arthritis Rheumatoid arthritis location: unspecified site Rheumatoid factor presence: unspecified presence Qualified Code(s): M06.9 - Rheumatoid arthritis, unspecified
[2020-03-07] MEDS: INSULIN GLARGINE SOLOSTAR 100 UNITS/ML 3 ML PEN SC SCH (21:07)
[2020-03-07] MEDS: SENNA 8.6 MG TAB PO SCH (21:15)
[2020-03-07] MEDS: ASPIRIN 81 MG ECTAB PO SCH (21:15)
[2020-03-07] MEDS: CLOPIDOGREL BISULFATE 75 MG TAB PO SCH (21:15)
[2020-03-08] MEDS ORDERED: INSULIN ASPART 100 UNITS/ML 3 ML PEN SC SCH (02:00)
[2020-03-08] MEDS: PIPERACILLIN/TAZOBACTAM 3.375 GM in DEXTROSE 5% 100 ML IV SCH ×3 (02:02→18:14)
[2020-03-08] MEDS: OXYCODONE HCL IR 5 MG TAB (IMMEDIATE RELEASE) PO PRN (02:47)
[2020-03-08] MEDS: ALBUT/IPRATROP 3MG/0.5MG NEB 3 ML VIAL NEB SCH ×6 (03:41→23:25)
[2020-03-08] MEDS: ACETAMINOPHEN 500 MG TAB PO SCH ×3 (05:56→21:26)
[2020-03-08 06:24] LABS: Hematocrit (blood only) 31.1 % (42-52); Hemoglobin 8.4 g/dL (14.0-18.0); Mean Corpuscular Hemoglobin 24.6 pg (25-34); Mean Corpuscular Volume 91.2 fL (80-100); Mean Platelet Volume 11.8 fL (7.4-10.4); Platelet Count 507 K/uL (130-400); RDW Coefficient of Variation 20.4 % (11.5-14.5); RDW Standard Deviation 63.7 fL (36.4-46.3); Red Blood Count 3.41 M/uL (4.7-6.1); White Blood Count 36.86 K/uL (4.8-10.8)
[2020-03-08 06:26] LABS: INR 2.1 (0.9-1.1); Prothrombin Time 21.3 Seconds (9.0-12.0)
[2020-03-08 06:53] LABS: BUN Creatinine Ratio 36.3 (10-20); Calcium 8.7 mg/dl (8.5-10.1); Creatinine Clr Calc Pharmacy 33.5 ml/min; Est GFR (African American) 46.8; Est GFR (Non-African American) 40.4
[2020-03-08] MEDS: DOCUSATE SODIUM 100 MG CAP PO SCH ×2 (08:50→20:39)
[2020-03-08] MEDS: MULTIVITAMIN TAB PO SCH (08:56)
[2020-03-08] MEDS: PANTOprazole 40 MG TAB PO SCH (08:56)
[2020-03-08] MEDS: predniSONE 20 MG TAB PO SCH (08:56)
[2020-03-08] MEDS: INSULIN GLARGINE SOLOSTAR 100 UNITS/ML 3 ML PEN SC SCH ×2 (08:58→21:17)
[2020-03-08] MEDS: INSULIN ASPART 100 UNITS/ML 3 ML PEN SC SCH ×4 (09:00→21:14)
--- NOTE | 2020-03-08 11:57 | XRay Report ---
XR chest 1V portable CLINICAL HISTORY: worsening hypoxia, pneumonitis; interval change COMPARISON STUDY: 03/06/2020 FINDINGS: Cardiac and mediastinal contours remain stable. There is diffuse elevation of interstitium. In addition there are more focal airspace opacities within the right midlung zone peripherally. A li near opacity at the left lung bases likely atelectatic. There is an equivocal right upper lung zone p ulmonary nodule. The right-sided PICC catheter remains unchanged in position. IMPRESSION: 1. Mixed interstitial and alveolar bilateral pulmonary opacities. Diagnostic considerations include p ulmonary edema, or a multifocal infectious/inflammatory process. The findings remain similar to the p receding examination ACT 112: Negative or not required by law. Electronically signed by: Bacilio Vasquez M.D. 03/08/2020 11:55 AM
--- NOTE | 2020-03-08 13:03 | Pulmonology Progress Note ---
Date of Service March 08, 2020 Assessment & Plan (1) Hypoxia: Impression: 79-year-old male with chronic hypoxemic respiratory failure and oxygen requirement of 4 L at baseline presenting now status post I&D of osteomyelitis of right toe. Patient developed hypoxemic respiratory failure in conjunction with receiving some packed cells. He had initially improved with steroids and diuresis and was down to his baseline oxygen requirement yesterday however it has creeped up overnight. Unclear if he may have some concomitant nocturnal hypoventilation superimposed on interstitial lung disease. Recommendations: Patient continues to improve and is only using high flow supplemental oxygen PRN Start aggressive start aggressive incentive spirometry Patient is unable to ambulate but should be in the bedside chair as tolerated Continue to titrate high flow O2 as tolerated to oxymask/NC Chest x-ray shows no significant change from prior Procalcitonin is elevated at 0.26 but this is not a good marker inasmuch as patient has known infection to his right lower extremity Continues to be treated with broad-spectrum antibiotics (cefazolin and Zosyn) Continue to increase activity as tolerated Discussed with case management today will place [facility] [place]. Patient is agreeable (2) Abnormal CT scan of lung: Multifactorial Interstitial lung disease as well as pneumonitis Patient with chronic hypoxemic failure Continue treat as above Not a good candidate for surgical biopsy Follow-up in outpatient office on discharge (3) Interstitial lung disease: Patient was started on steroids this admission which seemed to show some improvement Currently receiving 20 mg of prednisone daily Continue supplemental oxygen to maintain saturation between 85 and 88% Increase activity as tolerated Continue pulmonary toilet and incentive spirometry (4) Moderate protein-energy malnutrition: Recommendations per nutrition (5) History of methicillin resistant staphylococcus aureus (MRSA): Biopsy of right foot in January revealed MRSA. Biopsy this admission shows MSSA Case discussed with Dr. Braun from infectious disease at [facility] Patient changed to cefazolin 2 g IV every 8 hours on 03/01/2020. This should be continued for an additional 4 to 6 weeks. Thank very much for including us in the care of this patient. We will continue to follow along with you. Please refer to Dr. Coy's addendum for further recommendations. Admission and Anticipated Discharge Date Admission Date: February 23, 2020 Subjective Attending: Dr. Coy Is an 79-year-old male who had a incision and drainage of the right foot. He was found to have significant shortness of breath and hypoxia. He has been on high flow supplemental oxygen and we are currently in the process of weaning that down. This morning the patient is a 30 L/min flow rate and an FiO2 of 45%. He is eating breakfast and has SaO2 in the low to mid 80s. The patient denies any dyspnea. He has no chest pain or tightness. He denies any fever or chills. He has no hemoptysis. He has no significant cough. Overall he feels as though he is he improving. Review of Systems Review of Systems: All systems reviewed & are unremarkable except as noted in HPI & below Physical Exam Physical Exam: GENERAL : No acute distress EYES: No icterus, gaze conjugate NOSE: No evidence of epistaxis MOUTH: No lesions or candidiasis NECK: Supple LUNGS: CTA B/L, no wheezes, rales or rhonchi. Good inspiratory effort. HEART: Regular, rate controlled ABDOMEN: Soft, NT, ND, BS Present EXTREMITIES: No LE edema, pedal pulses intact to the posterior tibial on the r ight as well as a dorsalis pedis on the left NEURO: A&OX3 Results & Data Results & Data ([facility]) Vital Signs (Past 12 Hours) Vital Signs Temp Pulse Resp BP Pulse Ox 03/08/20 11:23 78 18 87 L 03/08/20 08:19 36.5 C 73 18 160/65 H 89 L 03/08/20 07:59 89 L 03/08/20 07:18 76 18 83 L 03/08/20 03:42 68 18 88 L Laboratory Results 03/08/20 05:59 03/08/20 05:59 Diagnostic Findings XR chest 1V portable CLINICAL HISTORY: worsening hypoxia, pneumonitis; interval change COMPARISON STUDY: 03/06/2020 FINDINGS: Cardiac and mediastinal contours remain stable. There is diffuse crispin vation of interstitium. In addition there are more focal airspace opacities within the right midlung zone peripherally. A linear opacity at the left lung bases likely atelectatic. There is an equivocal right upper lung zone pulmonary nodule. The right-sided PICC catheter remains unchanged in position. IMPRESSION: 1. Mixed interstitial and alveolar bilateral pulmonary opacities. Diagnostic considerations include pulmonary edema, or a multifocal infectious/inflammatory process. The findings remain similar to the preceding examination Electronically signed by: Bacilio Vasquez M.D. 03/08/2020 11:55 AM PG Care Time/CCT Total # of Minutes Spent Total Time Spent with Patient: Total time spent is greater than 50% in coordination of care (as documented) at patient's floor/unit and/or counseling patient:30 minutes including discussion with case management, patient, other providers. Coding Level of Care Code 36670 Subseq Hosp Care Lvl 2 Diagnoses Hypoxia R09.[address] scan of lung R91.8 Interstitial lung disease J84.9 Moderate protein-energy malnutrition E44.0 History of methicillin resistant staphylococcus aureus (MRSA) Z86.14 Time Spent (min) 30
[2020-03-08] MEDS: WARFARIN SOD 5 MG TAB PO SCH (16:38)
[2020-03-08] MEDS: SENNA 8.6 MG TAB PO SCH (20:39)
[2020-03-08] MEDS: ASPIRIN 81 MG ECTAB PO SCH (20:39)
[2020-03-08] MEDS: CLOPIDOGREL BISULFATE 75 MG TAB PO SCH (20:39)
--- NOTE | 2020-03-08 21:11 | Hospitalist Progress Note ---
Date of Service March 08, 2020 Assessment & Plan (1) Acute and chronic respiratory failure with hypoxia: acute resp failure 2nd to volume overload and now a pneumonitis. etiology of latter?? patient's BUN and Cr mariama in face of diuresis - diuretics placed on hold. to cover for possible hospital-acquired pneumonia/gram negative pneumonia he was placed on zosyn on 03/05. Thus, day #4 of such. still requiring 8 L via oxymask. MRSA swab neg; defer on vanco/MRSA coverage. cont chronic prednisone. COVID-19 test 02/18/20 was negative. consider repeat testing. cxr today with ongoing interstitial infiltrates -- baseline ILD with pneumonitis?? pulmonary edema? combination? 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 WBC count continues to rise - leukamoid reaction? prednisone?? cbc in am (2) Osteomyelitis: Patient with history of PAD, DM, osteomyelitis of right foot. 02/23/20 -procedure on right foot by Dr Dumont -- s/p - 1. Right foot irrigation and debridement of fifth metatarsal head ulcer measuring 3.0 cm x 2.75 cm full thickness. 2. Right foot irrigation and debridement of lateral distal ulcer including skin, fascia, dermis and joint capsule of fifth metatarsal head measuring 3 cm x 2.75 cm. 3. Application of TheraSkin split thickness skin allograft to fifth metatarsal head region, right foot. MSSA from current wound. Telehealth ID consult completed. They recommended 4-6 weeks of cefazolin IV on discharge. Ancef placed on hold when zosyn was started on 03/05 for pneumonia/pneumonitis. (3) Anemia: Chronic. Baseline Hgb 8-9. On hydroxyurea for chronic thrombocytosis. Received 1/2 unit PRBCs on 02/22 and developed worsening resp failure requiring diuresis and BiPAP. Uncertain if TACO. Prior attending MD discussed care w/ heme/onc -- hydroxyurea on hold for now. H/H acceptable last few days. (4) Arteriosclerotic cardiovascular disease (ASCVD): Continue ASA, Plavix Cont to hold MEGAN due to low-normal BPs. (5) Benign hypertension: Holding Lisinopril/HCTZ due to low-normal BPs. BPs stable again today. (6) Chronic diastolic CHF (congestive heart failure): acute/chronic. diuretics were on hold due to rising BUN and Cr but ?ongoing edema on chest films today. repeat BMP in am. resume diuretics if necessary. (7) CKD (chronic kidney disease) stage 3, GFR 30-59 ml/min: Baseline Cr 1.3. Cr 1.59 today in face of diuresis. HOLD lasix again. BMP am. (8) Diabetes mellitus: Uncontrolled but much improved. cont lantus to 16 units BID. cont novolog. Cont to hold home Glipizide and Metformin. (9) Idiopathic interstitial pneumonia: Chronic. Patient on 4-5L NC at baseline. Follows with Drs. Hardin and Landry and Shirley Dailey in the office. Typically on prednisone 3mg po daily. Cont Prednisone 20mg daily given acute issues. 2nd to rheumatoid lung? other? (10) Peripheral arterial disease: Chronic. History of stents and angioplasty to bilateral LEs. Patient follows with Dr. Ramos. -Continue ASA 81mg po daily -Continue Plavix 75mg po daily (11) History of DVT (deep vein thrombosis): INR therapeutic today had been >3 on two occasions this admission continue 5mg of coumadin again today repeat INR am (12) Essential thrombocytosis: Chronic Holding hydroxyurea but platelets rising -- resume?? d/w heme/onc (13) Rheumatoid arthritis: Chronic On daily Prednisone 3 mg once daily typically (14) Bone lesion: As seen on CTA chest earlier this admission. Seen by Dr Amador at [facility] early this year for these bone lesions. At that time PSA was normal. Etiology uncertain. Primary cancer site undetermined. Patient was not wanting aggressive w/u at that time. Repeat PSA today acceptable. Had bladder ca in past; underwent cystoscopy early 2019 w/o recurrence. patient stated emphatically he does NOT want work-up or Rx for this. (15) Aortic valve stenosis: Mild-moderate. Likely not contributing to clinical issues. (16) DVT prophylaxis: Coumadin DNR/DNI LTACH in [place] for dispo?? Admission and Anticipated Discharge Date Admission Date: February 23, 2020 Subjective patient without any new complaints states "breathing is fine" but still requiring double his usual O2 requirement (typically 4 L at baseline, still on 8 L) LEE - at baseline no dyspnea at rest no cough eating ok no chest pain or abd pain he is aware of LTACH referral - agreeable to it Review of Systems Constitutional: + fatigue; no fever Respiratory: no cough, no hemoptysis and no wheezing Cardiovascular: no chest pain and no edema Gastrointestinal: no abdominal pain, no nausea and no vomiting Physical Exam Constitutional: + thin and + frail appearing; no acute distress and no altered mental status ENMT: external ear and nose normal, oropharynx normal Respiratory: no respiratory distress Auscultation: + diminished lung sounds (Bases ) and + crackles (bases); no wheezes Cardiovascular: Rate/Rhythm: regular rate and regular rhythm Heart Sounds: normal S1, normal S2 and + murmur (2/6 RUSB - systolic) Vessels: posterior tibial pulses present and dorsalis pedis pulses present; no JVD Extremities: no edema Gastrointestinal (Abdomen): normal bowel sounds, soft, nontender, no hepatosplenomegaly Psychiatric: Orientation: alert and oriented x 3 Results & Data Results & Data ([facility]) Vital Signs (Past 12 Hours) Vital Signs Temp Pulse Resp BP Pulse Ox 03/08/20 20:36 74 87 L 03/08/20 19:53 79 18 88 L 03/08/20 18:24 74 20 87 L 03/08/20 17:26 69 89 L 03/08/20 16:37 73 20 93 03/08/20 15:48 36.8 C 73 18 123/66 90 03/08/20 15:02 71 18 93 03/08/20 13:43 92 03/08/20 11:23 78 18 87 L Laboratory Results Laboratory Results - last 24 hr 03/08/20 03/08/20 03/08/20 02:07 05:59 05:59 WBC RBC Hgb Hct MCV MCH MCHC RDW Std Deviation RDW Coeff of Dru Plt Count MPV PT 21.3 H INR 2.1 H Sodium 138 Potassium 4.0 Chloride 102 Carbon Dioxide 31 Anion Gap 5.0 BUN 58 H Creatinine 1.59 H Est Cr Clr Drug Dosing 33.5 Est GFR ( Amer) 46.8 Est GFR (Non-Af Amer) 40.4 BUN/Creatinine Ratio 36.3 H Glucose 119 H POC Glucose 144 H Calcium 8.7 03/08/20 03/08/20 03/08/20 05:59 08:12 12:27 WBC 36.86 H* RBC 3.41 L Hgb 8.4 L Hct 31.1 L MCV 91.2 MCH 24.6 L MCHC 27.0 L RDW Std Deviation 63.7 H RDW Coeff of Dru 20.4 H Plt Count 507 H MPV 11.8 H PT INR Sodium Potassium Chloride Carbon Dioxide Anion Gap BUN Creatinine Est Cr Clr Drug Dosing Est GFR ( Amer) Est GFR (Non-Af Amer) BUN/Creatinine Ratio Glucose POC Glucose 143 H 174 H Calcium 03/08/20 03/08/20 17:08 20:47 WBC RBC Hgb Hct MCV MCH MCHC RDW Std Deviation RDW Coeff of Dru Plt Count MPV PT INR Sodium Potassium Chloride Carbon Dioxide Anion Gap BUN Creatinine Est Cr Clr Drug Dosing Est GFR ( Amer) Est GFR (Non-Af Amer) BUN/Creatinine Ratio Glucose POC Glucose 96 190 H Calcium PG Care Time/CCT Total # of Minutes Spent Total Time Spent with Patient: Total time spent is greater than 50% in coordination of care (as documented) at patient's floor/unit and/or counseling patient: Coding Level of Care Code 95309 Subseq Hosp Care Lvl 3 Diagnoses Acute and chronic respiratory failure with hypoxia J96.21 Osteomyelitis M86.9 Laterality: right Osteomyelitis location: foot Osteomyelitis type: unspecified type Anemia D64.9 Anemia type: unspecified type Arteriosclerotic cardiovascular disease (ASCVD) I25.10 Benign hypertension I10 Chronic diastolic CHF (congestive heart failure) I50.32 CKD (chronic kidney disease) stage 3, GFR 30-59 ml/min N18.3 Diabetes mellitus E11.9 Diabetes mellitus complication status: without complication Diabetes mellitus fci insulin use: without buttermaker use Diabetes mellitus type: type 2 Idiopathic interstitial pneumonia J84.111 Peripheral arterial disease I73.9 History of DVT (deep vein thrombosis) Z86.718 Essential thrombocytosis D47.3 Rheumatoid arthritis M06.9 Rheumatoid arthritis location: unspecified site Rheumatoid factor presence: unspecified presence Bone lesion M89.9 Aortic valve stenosis I35.0 Cardiac valve disease etiology: etiology unspecified DVT prophylaxis Z29.9 (1) Rheumatoid arthritis Rheumatoid arthritis location: unspecified site Rheumatoid factor presence: unspecified presence Qualified Code(s): M06.9 - Rheumatoid arthritis, unspecified (2) Diabetes mellitus Diabetes mellitus complication status: without complication Diabetes mellitus buttermaker insulin use: without fci use Diabetes mellitus type: type 2 Qualified Code(s): E11.9 - Type 2 diabetes mellitus without complications (3) Anemia Anemia type: unspecified type Qualified Code(s): D64.9 - Anemia, unspecified (4) Aortic valve stenosis Cardiac valve disease etiology: etiology unspecified Qualified Code(s): I35.0 - Nonrheumatic aortic (valve) stenosis (5) Osteomyelitis Laterality: right Osteomyelitis location: foot Osteomyelitis type: unspecified type Qualified Code(s): M86.9 - Osteomyelitis, unspecified
[2020-03-09] MEDS: PIPERACILLIN/TAZOBACTAM 3.375 GM in DEXTROSE 5% 100 ML IV SCH ×3 (01:15→19:15)
[2020-03-09] MEDS: ALBUT/IPRATROP 3MG/0.5MG NEB 3 ML VIAL NEB SCH ×6 (02:30→23:04)
[2020-03-09] MEDS: ACETAMINOPHEN 500 MG TAB PO SCH ×3 (06:22→21:52)
[2020-03-09 08:02] LABS: Hematocrit (blood only) 31.6 % (42-52); Hemoglobin 8.3 g/dL (14.0-18.0); Mean Corpuscular Hemoglobin 24.3 pg (25-34); Mean Corpuscular Hgb Conc 26.3 g/dL (32-36); Mean Corpuscular Volume 92.4 fL (80-100); Mean Platelet Volume 11.8 fL (7.4-10.4); Platelet Count 534 K/uL (130-400); RDW Coefficient of Variation 20.8 % (11.5-14.5); RDW Standard Deviation 65.7 fL (36.4-46.3); Red Blood Count 3.42 M/uL (4.7-6.1); White Blood Count 42.47 K/uL (4.8-10.8)
[2020-03-09 08:09] LABS: INR 2.1 (0.9-1.1); Prothrombin Time 20.9 Seconds (9.0-12.0)
[2020-03-09 08:50] LABS: BUN Creatinine Ratio 41.2 (10-20); Creatinine Clr Calc Pharmacy 41.7 ml/min; Est GFR (African American) 60.9; Est GFR (Non-African American) 52.5; Magnesium 2.6 mg/dl (1.8-2.4); Phosphorus 3.5 mg/dl (2.5-4.9)
[2020-03-09] MEDS ORDERED: FUROSEMIDE 40 MG in SYRINGE 0 ML IV ONE (10:00)
[2020-03-09] MEDS: PANTOprazole 40 MG TAB PO SCH (10:32)
[2020-03-09] MEDS: predniSONE 20 MG TAB PO SCH (10:33)
[2020-03-09] MEDS: DOCUSATE SODIUM 100 MG CAP PO SCH ×2 (10:33→20:23)
[2020-03-09] MEDS: MULTIVITAMIN TAB PO SCH (10:33)
[2020-03-09] MEDS: INSULIN GLARGINE SOLOSTAR 100 UNITS/ML 3 ML PEN SC SCH ×2 (10:35→21:51)
[2020-03-09] MEDS: INSULIN ASPART 100 UNITS/ML 3 ML PEN SC SCH ×4 (10:36→21:51)
--- NOTE | 2020-03-09 12:45 | Pulmonology Progress Note ---
Date of Service March 09, 2020 Assessment & Plan (1) Hypoxia: Impression: 79-year-old male with chronic hypoxemic respiratory failure and oxygen requirement of 4 L at baseline presenting now status post I&D of osteomyelitis of right toe. Patient developed hypoxemic respiratory failure in conjunction with receiving some packed cells. He had initially improved with steroids and diuresis and was down to his baseline oxygen requirement yesterday however it has creeped up overnight. Unclear if he may have some concomitant nocturnal hypoventilation superimposed on interstitial lung disease. Recommendations: Patient continues to improve and is using high flow supplemental oxygen intermi ttently with nasal cannula and Oxymask Started aggressive incentive spirometry but patient is having difficulty coordinating Patient is unable to ambulate but should be in the bedside chair as tolerated Continue to titrate high flow O2 as tolerated to oxymask/NC Chest x-ray shows no significant change from prior Procalcitonin is elevated at 0.26 but this is not a good marker inasmuch as patient has known infection to his right lower extremity Continues to be treated with broad-spectrum antibiotics (cefazolin and Zosyn) Continue to increase activity as tolerated [facility] for [facility] [place] [facility] acute care. (2) Abnormal CT scan of lung: Multifactorial Interstitial lung disease as well as pneumonitis Patient with chronic hypoxemic failure Continue treat as above Not a good candidate for surgical biopsy Follow-up in outpatient office on discharge (3) Interstitial lung disease: Patient was started on steroids this admission which seemed to show some improvement Currently receiving 20 mg of prednisone daily Continue supplemental oxygen to maintain saturation between 85 and 88% Increase activity as tolerated Continue pulmonary toilet and incentive spirometry (4) Moderate protein-energy malnutrition: Recommendations per nutrition (5) Leukocytosis: Patient on home prednisone 3mg HS Started on methylprednisolone salvage therapy 02/26/2020 Patient has had a steady rise of WBC since that time Currently the patient is on 20 mg PO prednisone daily Continues on Antibiotics with Zosyn. Cefazolin was held when Zosyn was started Patient is afebrile and has no new or worsening symptoms. Repeat blood and sputum cultures in the event that steroids are suppressing fever (6) History of methicillin resistant staphylococcus aureus (MRSA): Biopsy of right foot in January revealed MRSA. Biopsy this admission shows MSSA Case discussed with Dr. Braun from infectious disease at [facility] Patient changed to cefazolin 2 g IV every 8 hours on 03/01/2020 and will need an additional 4 to 6 weeks of therapy. Do not restart Daptomycin if possible as this can be toxic to the lungs Continue contact precautions Thank very much for including us in the care of this patient. We will continue to follow along with you. Please refer to Dr. Coy's addendum for further recommendations. Admission and Anticipated Discharge Date Admission Date: February 23, 2020 Supervising Physician Co-Signing Physician Notes Patient is now back down to 4 L nasal cannula. He appears to be tolerating this reasonably well and continues to deny any significant complaints. Am concerned about his leukocytosis. This seems to be much higher than 1 would expect with demargination due to systemic steroids. Additional evaluation per primary admitting service. Continue to wean oxygen as tolerated. Subjective Attending: Dr. Coy Patient seen at bedside this morning. He continues to have waxing and waning supplemental oxygen requirements. Yesterday he was able to be weaned off of the high flow oxygen. This morning he was back on with a flow rate of 40 L and FiO2 of 75%. Continue to wean supplemental O2 as tolerated. Patient states he has no chest pain or tightness. He does feel stable regarding his shortness of breath. [facility] and we are waiting a response from their liaison. Review of Systems Review of Systems: All systems reviewed & are unremarkable except as noted in HPI & below Physical Exam Physical Exam: GENERAL : No acute distress EYES: No icterus, gaze conjugate NOSE: No evidence of epistaxis MOUTH: No lesions or candidiasis NECK: Supple LUNGS: CTA B/L, no wheezes, rales or rhonchi. Good inspiratory effort HEART: Regular, rate controlled ABDOMEN: Soft, NT, ND, BS Present EXTREMITIES: No LE edema, pedal pulses intact and equal bilaterally. There is a dressing on the right foot. Patient has no specific pain to the foot on examination NEURO: A&OX3 Results & Data Results & Data ([facility]) Vital Signs (Past 12 Hours) Vital Signs Temp Pulse Resp BP Pulse Ox 03/09/20 11:17 63 18 90 03/09/20 10:41 89 L 03/09/20 07:18 36.5 C 68 18 128/65 90 03/09/20 06:59 67 18 92 03/09/20 02:30 80 18 84 L Laboratory Results 03/09/20 07:36 03/09/20 07:36 Laboratory Tests 02/25/20 02/26/20 02/27/20 06:56 04:45 08:16 WBC 11.62 H 13.67 H 18.36 H 02/28/20 03/01/20 03/03/20 06:01 06:18 05:31 WBC 19.11 H 19.74 H 22.11 H 03/05/20 03/06/20 03/07/20 05:20 09:16 05:48 WBC 27.10 H 30.69 H* 34.58 H* 03/08/20 03/09/20 05:59 07:36 WBC 36.86 H* 42.47 H* Diagnostic Findings No new radiographic images today. PG Care Time/CCT Total # of Minutes Spent Total Time Spent with Patient: Total time spent is greater than 50% in coordinat ion of care (as documented) at patient's floor/unit and/or counseling patient: 30 minutes including discussion with patient, nursing care team, and other providers Coding Level of Care Code 64615 Subseq Hosp Care Lvl 3 Diagnoses Hypoxia R09.[address] scan of lung R91.8 Interstitial lung disease J84.9 Moderate protein-energy malnutrition E44.0 Leukocytosis D72.829 History of methicillin resistant staphylococcus aureus (MRSA) Z86.14 Time Spent (min) 30
[2020-03-09] MEDS: HYDROXYUREA 500 MG CAP PO SCH ×2 (13:01→20:21)
[2020-03-09] MEDS: WARFARIN SOD 5 MG TAB PO SCH (16:43)
--- NOTE | 2020-03-09 20:11 | Hospitalist Progress Note ---
Date of Service March 09, 2020 Assessment & Plan (1) Leukocytosis: exact etiology uncertain. leukamoid reaction to pulmonary process? steroids? primary bone marrow process? will obtain peripheral smear in am. no atypical cells on differential today. most of diff is neutrophils. sed rate, crp, procal all normal. repeat CBC w/ diff in am along with peripheral smear. agree with blood cx's obtained by pulmonary. consider work-up for occult abscess. (2) Osteomyelitis: Patient with history of PAD, DM, osteomyelitis of right foot. 02/23/20 -procedure on right foot by Dr Dumont -- s/p - 1. Right foot irrigation and debridement of fifth metatarsal head ulcer measuring 3.0 cm x 2.75 cm full thickness. 2. Right foot irrigation and debridement of lateral distal ulcer including skin, fascia, dermis and joint capsule of fifth metatarsal head measuring 3 cm x 2.75 cm. 3. Application of TheraSkin split thickness skin allograft to fifth metatarsal head region, right foot. MSSA from current wound. Telehealth ID consult completed. They recommended 4-6 weeks of cefazolin IV on discharge. Ancef placed on hold when zosyn was started on 03/05 for pneumonia/pneumonitis. (3) Acute and chronic respiratory failure with hypoxia: acute resp failure 2nd to volume overload and pneumonitis. etiology of latter?? to cover for possible hospital-acquired pneumonia/gram negative pneumonia he was placed on zosyn on 03/05. Thus, day #5 of such. still requiring oxymask although O2 requirement is 5 L today. MRSA swab neg; defer on vanco/MRSA coverage. remains on chronic prednisone. COVID-19 test 02/18/20 was negative. consider repeat testing. 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 will give additional dose of IV lasix today as BUN and Cr are stable today. (4) Idiopathic interstitial pneumonia: Chronic. Patient on 4-5L NC at baseline. Follows with Drs. Mcgraw and Shirley Dailey in the office. Typically on prednisone 3mg po daily. Cont Prednisone 20mg daily given acute issues. 2nd to rheumatoid lung? (5) Essential thrombocytosis: Chronic platelets rising - d/w Dr Gomez today - will resume hydroxyurea 500mg BID repeat CBC in am (6) Anemia: Chronic. Baseline Hgb 8-9. On hydroxyurea for chronic thrombocytosis. Ferritin on 02/07 was about 30. B12/folate on 02/07 were wnl. Received 1/2 unit PRBCs on 02/22 and developed worsening resp failure requiring diuresis and BiPAP. Uncertain if TACO. Recheck CBC in am. Recheck ferritin in am - if low consider IV venofer. (7) Arteriosclerotic cardiovascular disease (ASCVD): Continue ASA, Plavix. Cont to hold MEGAN due to low-normal or low BPs. (8) Benign hypertension: Holding Lisinopril/HCTZ due to low-normal or low BPs. (9) Chronic diastolic CHF (congestive heart failure): acute/chronic. will give additional dose of IV lasix today. (10) CKD (chronic kidney disease) stage 3, GFR 30-59 ml/min: Baseline Cr 1.3. Cr 1.2 today. repeat BMP am. (11) Diabetes mellitus: largely controlled. cont lantus 16 units BID. cont novolog. Cont to hold home Glipizide and Metformin. (12) Peripheral arterial disease: Chronic. History of stents and angioplasty to bilateral LEs. [facility] fol [facility] with Dr. Ramos. -Continue ASA 81mg po daily -Continue Plavix 75mg po daily (13) History of DVT (deep vein thrombosis): INR therapeutic today continue 5mg of coumadin daily repeat INR am (14) Rheumatoid arthritis: Chronic On daily Prednisone 3 mg once daily typically (15) Bone lesion: As seen on CTA chest earlier this admission. Seen by Dr Amador at [facility] early this year for these bone lesions. At that time PSA was normal. Etiology uncertain. Primary cancer site undetermined. Patient was not wanting aggressive w/u at that time. Repeat PSA today acceptable. Had bladder ca in past; underwent cystoscopy early 2019 w/o recurrence. patient stated emphatically he does NOT want work-up or Rx for this. (16) Aortic valve stenosis: Mild-moderate. (17) DVT prophylaxis: Coumadin DNR/DNI LTACH in [place] for dispo - they will have a bed early this coming week care d/w pulmonary today Admission and Anticipated Discharge Date Admission Date: February 23, 2020 Subjective like previous visits he was sitting in chair comfortably. denied dyspnea, cough, wheezing. no right foot pain. O2 weaned to 5 L via oxymask. no abdominal pain. we discussed LTACH placement - still seems ok with that. no new complaints. Review of Systems Constitutional: + fatigue; no fever and no chills Respiratory: no cough, no hemoptysis, no sputum production and no wheezing Cardiovascular: no chest pain Gastrointestinal: no abdominal pain, no nausea and no vomiting Physical Exam Constitutional: + thin and + frail appearing; no acute distress and no altered mental status ENMT: external ear and nose normal, oropharynx normal Respiratory: no respiratory distress Auscultation: + crackles (bases - seems worse today ); no wheezes Cardiovascular: Rate/Rhythm: regular rate and regular rhythm Heart Sounds: normal S1, normal S2 and + murmur (2/6 RUSB - systolic) Vessels: posterior tibial pulses present and dorsalis pedis pulses present; no JVD Extremities: no edema Gastrointestinal (Abdomen): normal bowel sounds, soft, nontender, no hepatosplenomegaly Skin: + pallor right foot dressings in place; 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 Psychiatric: Orientation: alert and oriented x 3 Results & Data Results & Data ([facility]) Vital Signs (Past 12 Hours) Vital Signs Temp Pulse Resp BP Pulse Ox 03/09/20 19:26 61 18 93 03/09/20 16:46 85 L 03/09/20 15:50 78 15 96 03/09/20 14:52 36.6 C 80 14 98/54 L 85 L 03/09/20 11:17 63 18 90 03/09/20 10:41 89 L Laboratory Results Laboratory Results - last 24 hr 03/08/20 03/09/20 03/09/20 20:47 07:36 07:36 WBC 42.47 H* RBC 3.42 L Hgb 8.3 L Hct 31.6 L MCV 92.4 MCH 24.3 L MCHC 26.3 L RDW Std Deviation 65.7 H RDW Coeff of Rdu 20.8 H Plt Count 534 H MPV 11.8 H ESR PT 20.9 H INR 2.1 H Sodium Potassium Chloride Carbon Dioxide Anion Gap BUN Creatinine Est Cr Clr Drug Dosing Est GFR ( Amer) Est GFR (Non-Af Amer) BUN/Creatinine Ratio Glucose POC Glucose 190 H Calcium Phosphorus Magnesium C-Reactive Protein Procalcitonin 07/30/20 07/30/20 07/30/20 07:36 08:31 10:15 WBC RBC Hgb Hct MCV MCH MCHC RDW Std Deviation RDW Coeff of Dru Plt Count MPV ESR 11 PT INR Sodium 139 Potassium 4.0 Chloride 105 Carbon Dioxide 29 Anion Gap 5.0 BUN 53 H Creatinine 1.28 D Est Cr Clr Drug Dosing 41.7 Est GFR ( Amer) 60.9 Est GFR (Non-Af Amer) 52.5 BUN/Creatinine Ratio 41.2 H Glucose 114 H POC Glucose 125 H Calcium 8.0 L Phosphorus 3.5 Magnesium 2.6 H C-Reactive Protein Procalcitonin 03/09/20 03/09/20 03/09/20 10:15 10:15 12:03 WBC RBC Hgb Hct MCV MCH MCHC RDW Std Deviation RDW Coeff of Dru Plt Count MPV ESR PT INR Sodium Potassium Chloride Carbon Dioxide Anion Gap BUN Creatinine Est Cr Clr Drug Dosing Est GFR ( Amer) Est GFR (Non-Af Amer) BUN/Creatinine Ratio Glucose POC Glucose 207 H Calcium Phosphorus Magnesium C-Reactive Protein 1.16 H Procalcitonin 0.17 03/09/20 17:13 WBC RBC Hgb Hct MCV MCH MCHC RDW Std Deviation RDW Coeff of Dru Plt Count MPV ESR PT INR Sodium Potassium Chloride Carbon Dioxide Anion Gap BUN Creatinine Est Cr Clr Drug Dosing Est GFR ( Amer) Est GFR (Non-Af Amer) BUN/Creatinine Ratio Glucose POC Glucose 106 H Calcium Phosphorus Magnesium C-Reactive Protein Procalcitonin PG Care Time/CCT Total # of Minutes Spent Total Time Spent with Patient: Total time spent is greater than 50% in coordination of care (as documented) at patient's floor/unit and/or counseling patient: Coding Level of Care Code 95609 Subseq Hosp Care Lvl 3 Diagnoses Leukocytosis D72.829 Leukocytosis type: unspecified Osteomyelitis M86.9 Laterality: right Osteomyelitis location: foot Osteomyelitis type: unspecified type Acute and chronic respiratory failure with hypoxia J96.21 Idiopathic interstitial pneumonia J84.111 Essential thrombocytosis D47.3 Anemia D64.9 Anemia type: unspecified type Arteriosclerotic cardiovascular disease (ASCVD) I25.10 Benign hypertension I10 Chronic diastolic CHF (congestive heart failure) I50.32 CKD (chronic kidney disease) stage 3, GFR 30-59 ml/min N18.3 Diabetes mellitus E11.9 Diabetes mellitus complication status: without complication Diabetes mellitus elementary school tutor insulin use: without elementary school tutor use Diabetes mellitus type: type 2 Peripheral arterial disease I73.9 History of DVT (deep vein thrombosis) Z86.718 Rheumatoid arthritis M06.9 Rheumatoid arthritis location: unspecified site Rheumatoid factor presence: unspecified presence Bone lesion M89.9 Aortic valve stenosis I35.0 Cardiac valve disease etiology: etiology unspecified DVT prophylaxis Z29.9 (1) Rheumatoid arthritis Rheumatoid arthritis location: unspecified site Rheumatoid factor presence: unspecified presence Qualified Code(s): M06.9 - Rheumatoid arthritis, unspecified (2) Diabetes mellitus Diabetes mellitus complication status: without complication Diabetes mellitus long-term insulin use: without elementary school tutor use Diabetes mellitus type: type 2 Qualified Code(s): E11.9 - Type 2 diabetes mellitus without complications (3) Anemia Anemia type: unspecified type Qualified Code(s): D64.9 - Anemia, unspecified (4) Aortic valve stenosis Cardiac valve disease etiology: etiology unspecified Qualified Code(s): I35.0 - Nonrheumatic aortic (valve) stenosis (5) Osteomyelitis Laterality: right Osteomyelitis location: foot Osteomyelitis type: unspecified type Qualified Code(s): M86.9 - Osteomyelitis, unspecified (6) Leukocytosis Leukocytosis type: unspecified Qualified Code(s): D72.829 - Elevated white blood cell count, unspecified
[2020-03-09] MEDS: SENNA 8.6 MG TAB PO SCH (20:20)
[2020-03-09] MEDS: ASPIRIN 81 MG ECTAB PO SCH (20:21)
[2020-03-09] MEDS: CLOPIDOGREL BISULFATE 75 MG TAB PO SCH (20:21)
[2020-03-10] MEDS: PIPERACILLIN/TAZOBACTAM 3.375 GM in DEXTROSE 5% 100 ML IV SCH ×3 (02:29→17:36)
[2020-03-10] MEDS: ALBUT/IPRATROP 3MG/0.5MG NEB 3 ML VIAL NEB SCH ×6 (03:16→23:45)
[2020-03-10] MEDS: ACETAMINOPHEN 500 MG TAB PO SCH ×3 (05:46→21:56)
[2020-03-10 07:50] LABS: INR 2.2 (0.9-1.1); Prothrombin Time 22.1 Seconds (9.0-12.0)
[2020-03-10 07:58] LABS: Hematocrit (blood only) 27.2 % (42-52); Hemoglobin 7.4 g/dL (14.0-18.0); Mean Corpuscular Hgb Conc 27.2 g/dL (32-36); Mean Corpuscular Volume 91.9 fL (80-100); Mean Platelet Volume 11.6 fL (7.4-10.4); Platelet Count 480 K/uL (130-400); RDW Coefficient of Variation 20.8 % (11.5-14.5); RDW Standard Deviation 65.2 fL (36.4-46.3); Red Blood Count 2.96 M/uL (4.7-6.1); White Blood Count 44.05 K/uL (4.8-10.8)
[2020-03-10 08:08] LABS: Anisocytosis Present; Basophils # (auto) 0.02 K/uL (0-0.2); Eosinophils # (auto) 0.28 K/uL (0-0.5); Eosinophils % (auto) 0.6 %; Immature Granulocytes # (auto) 0.39 K/uL (0.00-0.02); Immature Granulocytes % (auto) 0.9 %; Lymphocytes # (auto) 1.74 K/uL (1.2-3.4); Monocytes # (auto) 1.45 K/uL (0.11-0.59); Monocytes % (auto) 3.3 %; Neutrophils # (auto) 40.17 K/uL (1.4-6.5); Neutrophils % (auto) 91.2 %; Poikilocytosis Present; Polychromasia 1+
[2020-03-10 08:10] LABS: Calcium 8.1 mg/dl (8.5-10.1); Creatinine Clr Calc Pharmacy 36.3 ml/min; Est GFR (African American) 51.5; Est GFR (Non-African American) 44.4; Potassium 3.5 mmol/L (3.5-5.1)
[2020-03-10 08:17] LABS: Ferritin 33.9 ng/ml (8-388)
[2020-03-10] MEDS: MULTIVITAMIN TAB PO SCH (08:18)
[2020-03-10] MEDS: PANTOprazole 40 MG TAB PO SCH (08:18)
[2020-03-10] MEDS: predniSONE 20 MG TAB PO SCH (08:18)
[2020-03-10] MEDS: DOCUSATE SODIUM 100 MG CAP PO SCH ×2 (08:18→20:43)
[2020-03-10] MEDS: HYDROXYUREA 500 MG CAP PO SCH ×2 (08:18→20:44)
[2020-03-10] MEDS: INSULIN GLARGINE SOLOSTAR 100 UNITS/ML 3 ML PEN SC SCH ×3 (09:49→21:50)
[2020-03-10] MEDS: INSULIN ASPART 100 UNITS/ML 3 ML PEN SC SCH ×4 (09:51→21:51)
[2020-03-10] MEDS ORDERED: IRON SUCROSE 200 MG in 0.9 % SODIUM CHLORIDE 100 ML IV ONE (10:00)
--- NOTE | 2020-03-10 10:59 | Pulmonology Progress Note ---
Date of Service March 10, 2020 Assessment & Plan (1) Hypoxia: Impression: 79-year-old male with chronic hypoxemic respiratory failure and oxygen requirement of 4 L at baseline presenting now status post I&D of osteomyelitis of right toe. Patient developed hypoxemic respiratory failure in conjunction with receiving some packed cells. He had initially improved with steroids and diuresis and was down to his baseline oxygen requirement yesterday however it has creeped up overnight. Unclear if he may have some concomitant nocturnal hypoventilation superimposed on interstitial lung disease. Recommendations: Patient continues to require high flow supplemental oxygen intermittently with nasal cannula and Oxymask but has stalled in progress Started aggressive incentive spirometry but patient is having difficulty coordinating Patient is unable to ambulate but should be in the bedside chair as tolerated Continue to titrate high flow O2 as tolerated to oxymask/NC Chest x-ray 03/08 shows no significant change from prior. Will get a repeat CXR this morning Procalcitonin elevated at 0.26 with f/u procal at 0.11. This is non-specific as patient has infection to his right lower extremity Continues to be treated with broad-spectrum antibiotics. Currently in Zosyn which replaced Cefazolin when WBC began to rise Referral made for [facility] in [place] for long-term acute care. (2) Abnormal CT scan of lung: Multifactorial Interstitial lung disease as well as pneumonitis Patient with chronic hypoxemic failure. Suspect profound hypoxia at home that was undiagnosed Continue treat as above Not a good candidate for surgical biopsy Follow-up in outpatient office on discharge (3) Interstitial lung disease: Patient was started on steroids this admission which seemed to show some improvement Currently receiving 20 mg of prednisone daily Continue supplemental oxygen to maintain saturation between 85 and 88% Continue pulmonary toilet and incentive spirometry (4) Moderate protein-energy malnutrition: Recommendations per nutrition (5) Leukocytosis: White count is out of proportion to clinical evaluation. Patient on home prednisone 3mg HS Started on methylprednisolone salvage therapy 02/26/2020 Patient has had a steady rise of WBC since that time Currently the patient is on 20 mg PO prednisone daily Continues on Antibiotics with Zosyn. Cefazolin was held when Zosyn was started Patient is afebrile and has no new or worsening symptoms. Blood and sputum cultures ordered in the event that steroids are suppressing fev er Leukocytosis type: unspecified Qualified Code(s): D72.829 - Elevated white blood cell count, unspecified (6) History of methicillin resistant staphylococcus aureus (MRSA): Biopsy of right foot in January revealed MRSA. Biopsy this admission shows MSSA Case discussed with Dr. Braun from infectious disease at [facility] [address] Patient changed to cefazolin 2 g IV every 8 hours on 03/01/2020 and will need an additional 4 to 6 weeks of therapy. Cefazolin was held and patient started on Zosyn due to increasing WBC Do not restart Daptomycin if possible as this can be toxic to the lungs Continue contact precautions Thank very much for including us in the care of this patient. We will continue to follow along with you. Please refer to Dr. Coy's addendum for further recommendations. Admission and Anticipated Discharge Date Admission Date: February 23, 2020 Supervising Physician Co-Signing Physician Notes Seen and examined. Discussed with SONNY moreno. Agree with his assessment and plan as noted. The patient continues to have intermittently increased oxygen requirements. I wonder if we are not identifying a chronic condition that has been present for quite some time as the patient is completely asymptomatic with oxygen saturations in the 70% range. His x-ray does not demonstrate any significant progression. Would continue to treat for all potential reversible causes. He is currently on antibiotics, diuretics, and steroids. He is experiencing some complications related with his steroids including significant hyperglycemia. Will continue to try and taper as tolerated. The possibility of retesting for novel coronavirus was raised. I think it is exceedingly unlikely the patient was infected with coronavirus while here in the hospital. He is had a negative test previously. He is not experiencing fever or other symptoms to suggest novel coronavirus. Could consider a CT angiogram to exclude the possibility of thromboembolic disease. This would also allow for potential interrogation of the pulmonary parenchyma and would allow for comparison to CT scan from prior this admission to see if there is been significant interval change. I agree that the patient's best option may be discharged to LTAC to continue to manage his longstanding pulmonary issues. Subjective No change in respiratory status. Patient states that his shortness of breath is stable. He has no chest pain or tightness. He denies fever or chills. He has no acute complaints. Review of Systems Review of Systems: All systems reviewed & are unremarkable except as noted in HPI & below Physical Exam Physical Exam: GENERAL : No acute distress EYES: No icterus, gaze conjugate NOSE: No evidence of epistaxis MOUTH: No lesions or candidiasis NECK: Supple LUNGS: CTA B/L, no wheezes, rales or rhonchi HEART: Regular, rate controlled ABDOMEN: Soft, NT, ND, BS Present EXTREMITIES: No LE edema, pedal pulses intact. Dressing intact to right lower extremity NEURO: A&OX3 Results & Data Results & Data ([facility]) Vital Signs (Past 12 Hours) Vital Signs Temp Pulse Resp BP Pulse Ox 03/10/20 07:15 36.5 C 61 14 132/68 94 03/10/20 06:59 65 12 87 L 03/10/20 03:18 65 14 92 03/10/20 00:54 68 18 88 L 03/09/20 23:25 36.5 C 69 16 112/64 88 L 03/09/20 23:04 73 18 90 Laboratory Results 03/10/20 07:18 03/10/20 07:18 Diagnostic Findings Last chest radiograph was 03/08/2020 PG Care Time/CCT Total # of Minutes Spent Total Time Spent with Patient: Total time spent is greater than 50% in coordination of care (as documented) at patient's floor/unit and/or counseling patient: 30 minutes including discussion with attending, nursing staff, other providers. Coding Level of Care Code 13363 Subseq Hosp Care Lvl 3 Diagnoses Hypoxia R09.[address] scan of lung R91.8 Interstitial lung disease J84.9 Moderate protein-energy malnutrition E44.0 Leukocytosis D72.829 Leukocytosis type: unspecified History of methicillin resistant staphylococcus aureus (MRSA) Z86.14
--- NOTE | 2020-03-10 11:39 | XRay Report ---
XR chest 1V portable CLINICAL HISTORY: Worsening leukopenia, persistent hypoxia dyspnea COMPARISON STUDY: 03/08/2020 FINDINGS: Diffuse bilateral interstitial infiltrative change. Slight improvement of the superimposed infiltrative process right midlung. Central catheter superior vena cava. IMPRESSION: Stable to slightly improved bilateral parenchymal interstitial and alveolar densities. ACT 112: Negative or not required by law. The above report was generated using voice recognition software. It may contain grammatical, syntax or spelling errors. Electronically signed by: Shun Batista M.D. 03/10/2020 11:37 AM
[2020-03-10] MEDS: WARFARIN SOD 5 MG TAB PO SCH (16:12)
[2020-03-10] MEDS: ASPIRIN 81 MG ECTAB PO SCH (20:44)
[2020-03-10] MEDS: CLOPIDOGREL BISULFATE 75 MG TAB PO SCH (20:45)
[2020-03-10] MEDS: SENNA 8.6 MG TAB PO SCH (20:45)
--- NOTE | 2020-03-10 21:15 | Hospitalist Progress Note ---
Date of Service March 10, 2020 Assessment & Plan (1) Acute pneumonitis: etiology? inflammatory pneumonitis unlikely - sed rate, crp wnl. viral? due to aspiration event? other? day #6 of zosyn to cover bacterial causes including gram negatives. slowly improving radiographically and clinically. (2) Leukocytosis: peripheral path report suggests this is likely leukamoid reaction. no suspicious features involving WBC line. no leukemic features. ESR, Crp, procal all normal. Right foot clean. Blood cx's negative. Patient very stable clinically. repeat CBC am. (3) Osteomyelitis: Patient with history of PAD, DM, osteomyelitis of right foot. 02/23/20 -procedure on right foot by Dr Dumont -- s/p - 1. Right foot irrigation and debridement of fifth metatarsal head ulcer measuring 3.0 cm x 2.75 cm full thickness. 2. Right foot irrigation and debridement of lateral distal ulcer including skin, fascia, dermis and joint capsule of fifth metatarsal head measuring 3 cm x 2.75 cm. 3. Application of TheraSkin split thickness skin allograft to fifth metatarsal head region, right foot. MSSA from wound. Telehealth ID consult completed. They recommended 4-6 weeks of cefazolin IV on discharge. Ancef placed on hold when zosyn was started on 03/05 for pneumonia/pneumonitis. (4) Acute and chronic respiratory failure with hypoxia: acute resp failure 2nd to volume overload and pneumonitis. etiology of latter?? to cover for possible hospital-acquired pneumonia/gram negative pneumonia he was placed on zosyn on 03/05. Thus, day #6 of such. MRSA swab neg; defer on vanco/MRSA coverage. remains on chronic prednisone. COVID-19 test 02/18/20 was negative. 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 (5) Idiopathic interstitial pneumonia: Chronic. Patient on 4-5L NC at baseline. Follows with Drs. Mcgraw and Shirley Dailey in the office. Typically on prednisone 3mg po daily. Cont Prednisone 20mg daily given acute issues. 2nd to rheumatoid lung? (6) Essential thrombocytosis: Chronic Resumed hydroxyurea 500mg BID on 03/09/20 repeat CBC in am (7) Anemia: Chronic. Baseline Hgb 8-9. On hydroxyurea for chronic thrombocytosis. B12/folate on 02/07 were wnl. Ferritin today 33 c/w iron deficiency. Received 1/2 unit PRBCs on 02/22 and developed worsening resp failure requiring diuresis and BiPAP. Uncertain if TACO. Give 200mg of IV venofer today. If he tolerates repeat again tomorrow on 03/11. Hemoglobin did drop nearly 1gm in 24 hours but no overt GI bleeding. Certainly at risk of such - on aspirin, plavix AND coumadin. Repeat CBC in am and if same or lower then will need repeat PRBC infusion. Obtain fecal occult. (8) Arteriosclerotic cardiovascular disease (ASCVD): Continue ASA, Plavix. Cont to hold MEGAN due to low-normal or low BPs. (9) Benign hypertension: Holding Lisinopril/HCTZ due to low-normal or low BPs. (10) Chronic diastolic CHF (congestive heart failure): acute/chronic. acute component resolved. no further diuretics at this time. (11) CKD (chronic kidney disease) stage 3, GFR 30-59 ml/min: Baseline Cr 1.3. Cr 1.4 today. no further lasix. repeat BMP am. (12) Diabetes mellitus: uncontrolled. increase lantus to 20 units BID. cont novolog but adjust correction & carb ratio. uncertain why he is so uncontrolled - frequent snacking? other? Cont to hold home Glipizide and Metformin. (13) Peripheral arterial disease: Chronic. History of stents and angioplasty to bilateral LEs. Patient follows with Dr. Ramos. -Continue ASA 81mg po daily -Continue Plavix 75mg po daily (14) History of DVT (deep vein thrombosis): INR therapeutic today continue 5mg of coumadin daily repeat INR am (15) Rheumatoid arthritis: Chronic On daily Prednisone 3 mg once daily typically (16) Bone lesion: As seen on CTA chest earlier this admission. Seen by Dr Amador at [facility] early this year for these bone lesions. At that time PSA was normal. Etiology uncertain. Primary cancer site undetermined. Patient was not wanting aggressive w/u at that time. Repeat PSA today acceptable. Had bladder ca in past; underwent cystoscopy early 2019 w/o recurrence. patient stated emphatically he does NOT want work-up or Rx for this. (17) Aortic valve stenosis: Mild-moderate. (18) DVT prophylaxis: Coumadin DNR/DNI LTACH in [place] for dispo - they will have a bed early this coming week care d/w pulmonary again today [id number] updated at bedside Admission and Anticipated Discharge Date Admission Date: February 23, 2020 Subjective patient sitting in chair during the visit. overnight had to return to [facility] due to desats in the 80s. despite such he states "I feel good." denies cough, dyspnea, or any LEE beyond baseline. denies chest pain or abd pain. denies right foot pain. Wali - his [id number] - was at bedside during the visit. LTACH to have bed for him early this coming week. Review of Systems Constitutional: no fever and no chills Respiratory: no hemoptysis, no sputum production and no wheezing Cardiovascular: no chest pain Physical Exam Constitutional: + thin and + frail appearing; no acute distress and no altered mental status ENMT: external ear and nose normal, oropharynx normal Respiratory: no respiratory distress Auscultation: + crackles (bases b/l -- fine, dry sounding ); no wheezes Cardiovascular: Rate/Rhythm: regular rate and regular rhythm Heart Sounds: normal S1, normal S2 and + murmur (2/6 RUSB - systolic) Vessels: posterior tibial pulses present and dorsalis pedis pulses present; no JVD Extremities: no edema Gastrointestinal (Abdomen): normal bowel sounds, soft, nontender, no hepatosplenomegaly Skin: + pallor right foot dressings removed; wound right lateral foot c/d/i and w/o drainage Psychiatric: Orientation: alert and oriented x 3 Results & Data Results & Data ([facility]) Vital Signs (Past 12 Hours) Vital Signs Temp Pulse Resp BP Pulse Ox 03/10/20 19:29 70 18 93 03/10/20 15:41 70 18 91 03/10/20 15:35 36.7 C 72 16 137/63 90 03/10/20 12:15 90 03/10/20 11:25 78 18 93 Laboratory Results Laboratory Results - last 24 hr 03/10/20 03/10/20 03/10/20 07:18 07:18 07:18 WBC 44.05 H* RBC 2.96 L Hgb 7.4 L Hct 27.2 L MCV 91.9 MCH 25.0 MCHC 27.2 L RDW Std Deviation 65.2 H RDW Coeff of Dru 20.8 H Plt Count 480 H MPV 11.6 H Immature Gran % (Auto) 0.9 Neut % (Auto) 91.2 Lymph % (Auto) 4.0 Fisher % (Auto) 3.3 Eos % (Auto) 0.6 Baso % (Auto) 0.0 Neut # (Auto) 40.17 H Lymph # (Auto) 1.74 Fisher # (Auto) 1.45 H Eos # (Auto) 0.28 Baso # (Auto) 0.02 Immature Gran # (Auto) 0.39 H Polychromasia 1+ Poikilocytosis Present Anisocytosis Present Peripher Smr Path Cons PT 22.1 H INR 2.2 H Sodium 139 Potassium 3.5 Chloride 105 Carbon Dioxide 29 Anion Gap 6.0 BUN 56 H Creatinine 1.47 H Est Cr Clr Drug Dosing 36.3 Est GFR ( Amer) 51.5 Est GFR (Non-Af Amer) 44.4 BUN/Creatinine Ratio 38.0 H Glucose 113 H POC Glucose Calcium 8.1 L Ferritin 33.9 SARS-CoV-2 RNA (RT-PCR) 03/10/20 03/10/20 03/10/20 08:33 12:05 17:13 WBC RBC Hgb Hct MCV MCH MCHC RDW Std Deviation RDW Coeff of Dru Plt Count MPV Immature Gran % (Auto) Neut % (Auto) Lymph % (Auto) Fisher % (Auto) Eos % (Auto) Baso % (Auto) Neut # (Auto) Lymph # (Auto) Fisher # (Auto) Eos # (Auto) Baso # (Auto) Immature Gran # (Auto) Polychromasia Poikilocytosis Anisocytosis Peripher Smr Path Cons PT INR Sodium Potassium Chloride Carbon Dioxide Anion Gap BUN Creatinine Est Cr Clr Drug Dosing Est GFR ( Amer) Est GFR (Non-Af Amer) BUN/Creatinine Ratio Glucose POC Glucose 129 H 300 H 339 H* Calcium Ferritin SARS-CoV-2 RNA (RT-PCR) 03/10/20 03/10/20 03/10/20 17:14 19:00 20:37 WBC RBC Hgb Hct MCV MCH MCHC RDW Std Deviation RDW Coeff of Dru Plt Count MPV Immature Gran % (Auto) Neut % (Auto) Lymph % (Auto) Fisher % (Auto) Eos % (Auto) Baso % (Auto) Neut # (Auto) Lymph # (Auto) Fisher # (Auto) Eos # (Auto) Baso # (Auto) Immature Gran # (Auto) Polychromasia Poikilocytosis Anisocytosis Peripher Smr Path Cons PT INR Sodium Potassium Chloride Carbon Dioxide Anion Gap BUN Creatinine Est Cr Clr Drug Dosing Est GFR ( Amer) Est GFR (Non-Af Amer) BUN/Creatinine Ratio Glucose POC Glucose 345 H* 339 H* Calcium Ferritin SARS-CoV-2 RNA (RT-PCR) Pending 03/10/20 20:39 WBC RBC Hgb Hct MCV MCH MCHC RDW Std Deviation RDW Coeff of Dru Plt Count MPV Immature Gran % (Auto) Neut % (Auto) Lymph % (Auto) Fisher % (Auto) Eos % (Auto) Baso % (Auto) Neut # (Auto) Lymph # (Auto) Fisher # (Auto) Eos # (Auto) Baso # (Auto) Immature Gran # (Auto) Polychromasia Poikilocytosis Anisocytosis Peripher Smr Path Cons PT INR Sodium Potassium Chloride Carbon Dioxide Anion Gap BUN Creatinine Est Cr Clr Drug Dosing Est GFR ( Amer) Est GFR (Non-Af Amer) BUN/Creatinine Ratio Glucose POC Glucose 288 H Calcium Ferritin SARS-CoV-2 RNA (RT-PCR) Diagnostic Findings cxr - IMPRESSION: Stable to slightly improved bilateral parenchymal interstitial and alveolar densities. PG Care Time/CCT Total # of Minutes Spent Total Time Spent with Patient: Total time spent is greater than 50% in coordination of care (as documented) at patient's floor/unit and/or counseling patient: Coding Level of Care Code 95593 Subseq Hosp Care Lvl 3 Diagnoses Acute pneumonitis J18.9 Leukocytosis D72.829 Leukocytosis type: unspecified Osteomyelitis M86.9 Osteomyelitis type: unspecified type Osteomyelitis location: foot Laterality: right Acute and chronic respiratory failure with hypoxia J96.21 Idiopathic interstitial pneumonia J84.111 Essential thrombocytosis D47.3 Anemia D50.9 Anemia type: iron deficiency Iron deficiency anemia type: unspecified iron deficiency Arteriosclerotic cardiovascular disease (ASCVD) I25.10 Benign hypertension I10 Chronic diastolic CHF (congestive heart failure) I50.32 CKD (chronic kidney disease) stage 3, GFR 30-59 ml/min N18.3 Diabetes mellitus E11.9 Diabetes mellitus type: type 2 Diabetes mellitus [facility] insulin use: without [facility] use Diabetes mellitus complication status: without complication Peripheral arterial disease I73.9 History of DVT (deep vein thrombosis) Z86.718 Rheumatoid arthritis M06.9 Rheumatoid arthritis location: unspecified site Rheumatoid factor presence: unspecified presence Bone lesion M89.9 Aortic valve stenosis I35.0 Cardiac valve disease etiology: etiology unspecified DVT prophylaxis Z29.9 (1) Leukocytosis Leukocytosis type: unspecified Qualified Code(s): D72.829 - Elevated white blood cell count, unspecified (2) Osteomyelitis Osteomyelitis type: unspecified type Osteomyelitis location: foot Laterality: right Qualified Code(s): M86.9 - Osteomyelitis, unspecified (3) Anemia Anemia type: iron deficiency Iron deficiency anemia type: unspecified iron de ficiency Qualified Code(s): D50.9 - Iron deficiency anemia, unspecified (4) Diabetes mellitus Diabetes mellitus type: type 2 Diabetes mellitus technician terminal and repeater insulin use: without [facility] use Diabetes mellitus complication status: without complication Qualified Code(s): E11.9 - Type 2 diabetes mellitus without complications (5) Rheumatoid arthritis Rheumatoid arthritis location: unspecified site Rheumatoid factor presence: unspecified presence Qualified Code(s): M06.9 - Rheumatoid arthritis, unspecified (6) Aortic valve stenosis Cardiac valve disease etiology: etiology unspecified Qualified Code(s): I35.0 - Nonrheumatic aortic (valve) stenosis
[2020-03-11] MEDS: PIPERACILLIN/TAZOBACTAM 3.375 GM in DEXTROSE 5% 100 ML IV SCH ×3 (01:52→17:53)
[2020-03-11] MEDS: ALBUT/IPRATROP 3MG/0.5MG NEB 3 ML VIAL NEB SCH ×6 (02:53→23:23)
[2020-03-11] MEDS: ACETAMINOPHEN 500 MG TAB PO SCH ×3 (06:09→21:35)
[2020-03-11 06:36] LABS: Hematocrit (blood only) 27.5 % (42-52); Hemoglobin 7.5 g/dL (14.0-18.0); Mean Corpuscular Hemoglobin 25.2 pg (25-34); Mean Corpuscular Hgb Conc 27.3 g/dL (32-36); Mean Corpuscular Volume 92.3 fL (80-100); Mean Platelet Volume 11.7 fL (7.4-10.4); Platelet Count 517 K/uL (130-400); RDW Coefficient of Variation 21.2 % (11.5-14.5); RDW Standard Deviation 66.3 fL (36.4-46.3); Red Blood Count 2.98 M/uL (4.7-6.1); White Blood Count 47.18 K/uL (4.8-10.8)
[2020-03-11 06:43] LABS: INR 2.6 (0.9-1.1); Prothrombin Time 26.2 Seconds (9.0-12.0)
[2020-03-11 07:02] LABS: BUN Creatinine Ratio 39.4 (10-20); Calcium 8.1 mg/dl (8.5-10.1); Creatinine Clr Calc Pharmacy 35.3 ml/min; Est GFR (African American) 49.8; Potassium 3.2 mmol/L (3.5-5.1)
[2020-03-11 07:09] LABS: Anisocytosis Present; Basophils # (auto) 0.03 K/uL (0-0.2); Basophils % (auto) 0.1 %; Eosinophils # (auto) 0.32 K/uL (0-0.5); Eosinophils % (auto) 0.7 %; Immature Granulocytes # (auto) 0.56 K/uL (0.00-0.02); Immature Granulocytes % (auto) 1.2 %; Lymphocytes # (auto) 2.17 K/uL (1.2-3.4); Lymphocytes % (auto) 4.6 %; Monocytes # (auto) 1.19 K/uL (0.11-0.59); Monocytes % (auto) 2.5 %; Neutrophils # (auto) 42.91 K/uL (1.4-6.5); Neutrophils % (auto) 90.9 %; Polychromasia 1+; Stomatocytes 1+
--- NOTE | 2020-03-11 08:42 | Pulmonology Progress Note ---
Date of Service March 11, 2020 Assessment & Plan (1) Acute pneumonitis: I do believe that he is likely approaching his baseline state. We are working on disposition.Impression: 79-year-old male with chronic hypoxemic respiratory failure and oxygen requirement of 4 L at baseline presenting now status post I&D of osteomyelitis of right toe. Patient developed hypoxemic respiratory failure in conjunction with receiving some packed cells. He has been treated with diuresis which resulted in a slight bump in his creatinine. He is also received steroids and empiric antibiotics. I am not sure how much of this may be the acute recognition of his chronic state. Recommendations: 1. Continue attempts to wean oxygen. He appears that he may be at his baseline as he is requiring about 6 L. Continue diuretics and aggressive pulmonary toilet. Continue out of bed, incentive spirometry, and flutter valve. Given his elevated creatinine, I am reluctant to push additional diuretics at this time. Discontinuing Zosyn will decrease the fluids that he gets daily. 2. History of interstitial lung disease: This chest x-ray does not demonstrate an overt flare of interstitial lung disease. At this point time I would favor tapering his prednisone decreasing by 5 mg every 3 days. His baseline requirement is 3 mg a day is been on this for some time. This is been initiated under the care of Dr. Hardin. Unclear if he has RA associated ILD. 3. I doubt pulmonary infection. He is completed a course of Zosyn. Okay to discontinue Zosyn and transition back to antibiotics to cover the osteomyelitis in his foot. Will defer to the primary service. 4. We will continue to follow with you. (2) Interstitial lung disease: (3) Abnormal CT scan of lung: (4) Acute and chronic respiratory failure with hypoxia: Admission and Anticipated Discharge Date Admission Date: February 23, 2020 Subjective Patient seen and examined. EMR reviewed. He continues to deny any significant complaints. He states he feels good. No respiratory problems. His foot feels fine. He is tolerating a diet. He is currently been weaned down to 6 L via facemask Review of Systems Review of Systems: Unchanged from prior Physical Exam Constitutional: + thin and + frail appearing; no acute distress and no altered mental status ENMT: external ear and nose normal, oropharynx normal Respiratory: no respiratory distress Auscultation: + crackles (bases b/l -- fine, dry sounding ); no wheezes Cardiovascular: Rate/Rhythm: regular rate and regular rhythm Heart Sounds: normal S1, normal S2 and + murmur (2/6 RUSB - systolic) Vessels: posterior tibial pulses present and dorsalis pedis pulses present; no JVD Extremities: no edema Gastrointestinal (Abdomen): normal bowel sounds, soft, nontender, no hepatosplenomegaly Skin: + pallor right foot dressings removed; wound right lateral foot c/d/i and w/o drainage Psychiatric: Orientation: alert and oriented x 3 Results & Data Results & Data ([facility]) Vital Signs (Past 12 Hours) Vital Signs Temp Pulse Resp BP Pulse Ox 03/11/20 07:37 65 22 87 L 03/11/20 02:55 66 16 95 03/11/20 02:53 66 16 95 03/10/20 23:50 65 18 99 03/10/20 23:49 65 18 99 03/10/20 23:33 36.4 C L 65 18 143/72 H 99 03/10/20 22:36 66 14 88 L Fluid balance remains slightly positive over the last 3 or 4 days Laboratory Results 03/11/20 05:12 03/11/20 05:12 Diagnostic Findings Chest x-ray from yesterday was reviewed. Stable to slightly improved. PG Care Time/CCT Total # of Minutes Spent Total Time Spent with Patient: Total time spent is greater than 50% in coordination of care (as documented) at patient's floor/unit and/or counseling patient: Coding Level of Care Code 40587 Subseq Hosp Care Lvl 2 Diagnoses Acute pneumonitis J18.9 Interstitial lung disease J84.[address] scan of lung R91.8 Acute and chronic respiratory failure with hypoxia J96.21
[2020-03-11] MEDS: HYDROXYUREA 500 MG CAP PO SCH ×2 (09:59→20:16)
[2020-03-11] MEDS: predniSONE 5 MG TAB PO SCH (09:59)
[2020-03-11] MEDS: PANTOprazole 40 MG TAB PO SCH (09:59)
[2020-03-11] MEDS: MULTIVITAMIN TAB PO SCH (09:59)
[2020-03-11] MEDS: DOCUSATE SODIUM 100 MG CAP PO SCH ×2 (10:00→20:16)
[2020-03-11] MEDS: INSULIN GLARGINE SOLOSTAR 100 UNITS/ML 3 ML PEN SC SCH ×2 (10:04→21:05)
[2020-03-11] MEDS: INSULIN ASPART 100 UNITS/ML 3 ML PEN SC SCH ×4 (10:04→21:05)
--- NOTE | 2020-03-11 11:10 | CT Scan Report ---
CT chest wo con CT DOSE: 479.83 mGy.cm HISTORY: Dyspnea worsening leukocytosis hypoxia; ILD; interval TECHNIQUE: Multiaxial CT images of the chest were performed without contrast. A dose lowering techni que was utilized adhering to the principles of ALARA. COMPARISON: 02/21/2020 FINDINGS: Moderately improved interstitial prominence throughout both hemithoraces. Residual spiculat ed nodule right pulmonary apex. Improved pleural effusions with small basilar residual. Residual atelectatic and/or consolidative change in the lung bases also moderately improved. Blastic metastatic change previously described is stable. IMPRESSION: 1. Generally improved exam compared to the prior study. 2. Improving interstitial change throughout both hemithoraces with moderate residual. 3. Improving bibasilar parenchymal infiltrates and effusions. 4. Unchanging spiculated nodularity previously described. ACT 112: Negative or not required by law. The above report was generated using voice recognition software. It may contain grammatical, syntax or spelling errors. Electronically signed by: Shun Batista M.D. 03/11/2020 11:09 AM
[2020-03-11] MEDS: WARFARIN SOD 5 MG TAB PO SCH (15:49)
[2020-03-11] MEDS: CLOPIDOGREL BISULFATE 75 MG TAB PO SCH (20:16)
[2020-03-11] MEDS: ASPIRIN 81 MG ECTAB PO SCH (20:16)
[2020-03-11] MEDS: SENNA 8.6 MG TAB PO SCH (20:17)
--- NOTE | 2020-03-11 21:49 | Hospitalist Progress Note ---
Date of Service March 11, 2020 Assessment & Plan (1) Acute pneumonitis: etiology? inflammatory pneumonitis unlikely - sed rate, crp wnl. viral? due to aspiration event? other? day #7 of zosyn to cover bacterial causes including gram negatives. d/c after tonight's dose. patient needed high-flow NC again overnight, and WBC continues rising - will obtain repeat chest CT to r/o abscess, empyema (although clinically does not have such), other etiology appreciate pulmonary assistance (2) Leukocytosis: peripheral path report suggests this is likely leukamoid reaction. no suspicious features involving WBC line. no leukemic features. ESR, Crp, procal all normal. Right foot clean. Blood cx's negative. Patient stable, but wbc count again is higher - approaching 50. CT chest as above. if WBCs continue to rise through Friday then formal heme/onc consult. (3) Osteomyelitis: Patient with history of PAD, DM, osteomyelitis of right foot. 02/23/20 -procedure on right foot by Dr Dumont -- s/p - 1. Right foot irrigation and debridement of fifth metatarsal head ulcer measuring 3.0 cm x 2.75 cm full thickness. 2. Right foot irrigation and debridement of lateral distal ulcer including skin, fascia, dermis and joint capsule of fifth metatarsal head measuring 3 cm x 2.75 cm. 3. Application of TheraSkin split thickness skin allograft to fifth metatarsal head region, right foot. MSSA from wound. Telehealth ID consult completed. They recommended 4-6 weeks of cefazolin IV on discharge. Ancef placed on hold when zosyn was started on 03/05 for pneumonia/pneumonitis. Resume ancef tomorrow. (4) Acute and chronic respiratory failure with hypoxia: acute resp failure 2nd to volume overload and pneumonitis. etiology of latter?? see above. to cover for possible hospital-acquired pneumonia/gram negative pneumonia he was placed on zosyn on 03/05. Thus, day #7 of such. remains on chronic prednisone. COVID-19 test 02/18/20 was negative. A repeat screening COVID test was sent yesterday as patient will need LTACH placement early this week. 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 (5) Idiopathic interstitial pneumonia: Chronic. Patient on 4-5L NC at baseline. Follows with Drs. Mcgraw and Shirley Dailey in the office. Typically on prednisone 3mg po daily. Cont Prednisone - weaned to 15mg today by Dr Coy. 2nd to rheumatoid lung? (6) Essential thrombocytosis: Chronic Resumed hydroxyurea 500mg BID on 03/09/20 repeat CBC in am (7) Anemia: Chronic. Baseline Hgb 8-9. On hydroxyurea for chronic thrombocytosis. B12/folate on 02/07 were wnl. Ferritin 33 c/w iron deficiency. Stool heme+ Patient is on asa, plavix, AND coumadin - high risk of occult GI bleeding. gave venofer 200mg IV on 03/10. plan to repeat tomorrow. Received 1/2 unit PRBCs on 02/22 and developed worsening resp failure requiring diuresis and BiPAP. Uncertain if TACO. If Hb drops further tomorrow then Tx PRBCs. (8) Arteriosclerotic cardiovascular disease (ASCVD): Continue ASA, Plavix. Cont to hold MEGAN due to low-normal or low BPs. (9) Benign hypertension: Holding Lisinopril/HCTZ due to low-normal or low BPs. (10) Chronic diastolic CHF (congestive heart failure): acute/chronic. acute component resolved. no further diuretics at this time. (11) CKD (chronic kidney disease) stage 3, GFR 30-59 ml/min: Baseline Cr 1.3. Cr 1.5 today. repeat BMP am. (12) Diabetes mellitus: improved with lantus & novolog adjustments. cont to adjust as necessary. Cont to hold home Glipizide and Metformin. (13) Peripheral arterial disease: Chronic. History of stents and angioplasty to bilateral LEs. Patient [place] with [place]. Ramos [place] [facility] [facility] Continue ASA 81mg and Plavix 75mg daily. (14) History of DVT (deep vein thrombosis): INR therapeutic again today continue 5mg of coumadin daily repeat INR am (15) Rheumatoid arthritis: On daily Prednisone 3 mg once daily typically. Cont to wean prednisone - down to 15mg today. (16) Bone lesion: As seen on CTA chest earlier this admission. Seen by Dr Amador at [facility] early this year for these bone lesions. At that time PSA was normal. Etiology uncertain. Primary cancer site undetermined. Patient was not wanting aggressive w/u at that time. Repeat PSA today acceptable. Had bladder ca in past; underwent cystoscopy early 2019 w/o recurrence. patient stated emphatically he does NOT want work-up or Rx for this. (17) Aortic valve stenosis: Mild-moderate. (18) DVT prophylaxis: Coumadin DNR/DNI LTACH in [place] for dispo - they will have a bed early this coming week [id number] ([place]) updated at bedside 03/10/20 Admission and Anticipated Discharge Date Admission Date: February 23, 2020 Subjective patient w/o any complaints denies dyspnea at rest denies cough denies chest pain denies abd pain denies right foot pain; asks when he can weight-bear on that foot Review of Systems Constitutional: no fever and no chills Respiratory: no cough, no hemoptysis, no sputum production and no wheezing Cardiovascular: no chest pain, no dyspnea at rest, no orthopnea and no edema Gastrointestinal: no abdominal pain, no nausea, no vomiting, no blood in stools and no melena Physical Exam Constitutional: + thin and + frail appearing; no acute distress and no altered mental status ENMT: external ear and nose normal, oropharynx normal Respiratory: Auscultation: + diminished lung sounds (modest - bases ) and + crackles (bases b/l -- fine); no wheezes Cardiovascular: Rate/Rhythm: regular rate and regular rhythm Heart Sounds: normal S1, normal S2 and + murmur (2/6 RUSB - systolic) Vessels: posterior tibial pulses present and dorsalis pedis pulses present; no JVD Extremities: no edema Gastrointestinal (Abdomen): normal bowel sounds, soft, nontender, no hepatosplenomegaly Musculoskeletal: right foot dressings clean/dry Skin: + pallor Psychiatric: Orientation: alert Results & Data Results & Data ([facility]) Vital Signs (Past 12 Hours) Vital Signs Temp Pulse Pulse Resp BP BP Pulse Ox 03/11/20 19:06 76 22 93 03/11/20 16:00 36.5 C 75 22 117/61 91 03/11/20 15:39 71 18 96 03/11/20 15:17 36.9 C 69 18 124/55 L 91 03/11/20 11:16 71 20 94 Laboratory Results Laboratory Results - last 24 hr 03/11/20 03/11/20 03/11/20 05:12 05:12 05:12 WBC 47.18 H* RBC 2.98 L Hgb 7.5 L Hct 27.5 L MCV 92.3 MCH 25.2 MCHC 27.3 L RDW Std Deviation 66.3 H RDW Coeff of Dru 21.2 H Plt Count 517 H MPV 11.7 H Immature Gran % (Auto) 1.2 Neut % (Auto) 90.9 Lymph % (Auto) 4.6 [place] % (Auto) 2.5 Eos % (Auto) 0.7 Baso % (Auto) 0.1 Neut # (Auto) 42.91 H Lymph # (Auto) 2.17 [place] # (Auto) 1.19 H Eos # (Auto) 0.32 Baso # (Auto) 0.03 Immature Gran # (Auto) 0.56 H Polychromasia 1+ Anisocytosis Present Stomatocytes 1+ PT 26.2 H INR 2.6 H Sodium 143 Potassium 3.2 L Chloride 108 H Carbon Dioxide 28 Anion Gap 7.0 BUN 59 H Creatinine 1.51 H Est Cr Clr Drug Dosing 35.3 Est GFR ( Amer) 49.8 Est GFR (Non-Af Amer) 43.0 BUN/Creatinine Ratio 39.4 H Glucose 66 L POC Glucose Calcium 8.1 L Stool Occult Bld Scrn 03/11/20 03/11/20 03/11/20 08:42 10:13 12:04 WBC RBC Hgb Hct MCV MCH MCHC RDW Std Deviation RDW Coeff of Dru Plt Count MPV Immature Gran % (Auto) Neut % (Auto) Lymph % (Auto) [place] % (Auto) Eos % (Auto) Baso % (Auto) Neut # (Auto) Lymph # (Auto) [place] # (Auto) Eos # (Auto) Baso # (Auto) Immature Gran # (Auto) Polychromasia Anisocytosis Stomatocytes PT INR Sodium Potassium Chloride Carbon Dioxide Anion Gap BUN Creatinine Est Cr Clr Drug Dosing Est GFR ( Amer) Est GFR (Non-Af Amer) BUN/Creatinine Ratio Glucose POC Glucose 91 136 H Calcium Stool Occult Bld Scrn Positive A 03/11/20 03/11/20 17:12 20:53 WBC RBC Hgb Hct MCV MCH MCHC RDW Std Deviation RDW Coeff of Dru Plt Count MPV Immature Gran % (Auto) Neut % (Auto) Lymph % (Auto) [place] % (Auto) Eos % (Auto) Baso % (Auto) Neut # (Auto) Lymph # (Auto) [place] # (Auto) Eos # (Auto) Baso # (Auto) Immature Gran # (Auto) Polychromasia Anisocytosis Stomatocytes PT INR Sodium Potassium Chloride Carbon Dioxide Anion Gap BUN Creatinine Est Cr Clr Drug Dosing Est GFR ( Amer) Est GFR (Non-Af Amer) BUN/Creatinine Ratio Glucose POC Glucose 132 H 199 H Calcium Stool Occult Bld Scrn Diagnostic Findings CT chest - PG Care Time/CCT Total # of Minutes Spent Total Time Spent with Patient: Total time spent is greater than 50% in coordination of care (as documented) at patient's floor/unit and/or counseling patient: Coding Level of Care Code 13552 Subseq Hosp Care Lvl 3 Diagnoses Acute pneumonitis J18.9 Leukocytosis D72.829 Leukocytosis type: unspecified Osteomyelitis M86.9 Osteomyelitis type: unspecified type Osteomyelitis location: foot Laterality: right Acute and chronic respiratory failure with hypoxia J96.21 Idiopathic interstitial pneumonia J84.111 Essential thrombocytosis D47.3 Anemia D50.9 Anemia type: iron deficiency Iron deficiency anemia type: unspecified iron deficiency Arteriosclerotic cardiovascular disease (ASCVD) I25.10 Benign hypertension I10 Chronic diastolic CHF (congestive heart failure) I50.32 CKD (chronic kidney disease) stage 3, GFR 30-59 ml/min N18.3 Diabetes mellitus E11.9 Diabetes mellitus type: type 2 Diabetes mellitus furniture stainer insulin use: without furniture stainer use Diabetes mellitus complication status: without complication Peripheral arterial disease I73.9 History of DVT (deep vein thrombosis) Z86.718 Rheumatoid arthritis M06.9 Rheumatoid arthritis location: unspecified site Rheumatoid factor presence: unspecified presence Bone lesion M89.9 Aortic valve stenosis I35.0 Cardiac valve disease etiology: etiology unspecified DVT prophylaxis Z29.9 (1) Leukocytosis Leukocytosis type: unspecified Qualified Code(s): D72.829 - Elevated white blood cell count, unspecified (2) Osteomyelitis Osteomyelitis type: unspecified type Osteomyelitis location: foot Laterality: right Qualified Code(s): M86.9 - Osteomyelitis, unspecified (3) Anemia Anemia type: iron deficiency Iron deficiency anemia type: unspecified iron deficiency Qualified Code(s): D50.9 - Iron deficiency anemia, unspecified (4) Diabetes mellitus Diabetes mellitus type: type 2 Diabetes mellitus furniture stainer insulin use: without furniture stainer use Diabetes mellitus complication status: without complication Qualified Code(s): E11.9 - Type 2 diabetes mellitus without complications (5) Rheumatoid arthritis Rheumatoid arthritis location: unspecified site Rheumatoid factor presence: unspecified presence Qualified Code(s): M06.9 - Rheumatoid arthritis, unspecified (6) Aortic valve stenosis Cardiac valve disease etiology: etiology unspecified Qualified Code(s): I35.0 - Nonrheumatic aortic (valve) stenosis
[2020-03-11] MEDS ORDERED: POTASSIUM CHLORIDE 20 MEQ TABCR PO ONE (22:15)
[2020-03-12] MEDS: PIPERACILLIN/TAZOBACTAM 3.375 GM in DEXTROSE 5% 100 ML IV SCH (02:05)
[2020-03-12] MEDS: ALBUT/IPRATROP 3MG/0.5MG NEB 3 ML VIAL NEB SCH ×6 (03:26→22:58)
[2020-03-12] MEDS: ACETAMINOPHEN 500 MG TAB PO SCH ×3 (06:18→20:43)
[2020-03-12] MEDS: CEFAZOLIN 2000MG 2,000 MG/15 ML SYR IV SCH ×2 (08:09→16:21)
[2020-03-12 08:24] LABS: Hematocrit (blood only) 26.4 % (42-52); Hemoglobin 7.2 g/dL (14.0-18.0); Mean Corpuscular Hgb Conc 27.3 g/dL (32-36); Mean Corpuscular Volume 91.7 fL (80-100); Mean Platelet Volume 11.9 fL (7.4-10.4); Platelet Count 518 K/uL (130-400); RDW Coefficient of Variation 21.3 % (11.5-14.5); RDW Standard Deviation 64.9 fL (36.4-46.3); Red Blood Count 2.88 M/uL (4.7-6.1); White Blood Count 46.77 K/uL (4.8-10.8)
[2020-03-12 08:49] LABS: Anisocytosis Present; BUN Creatinine Ratio 47.2 (10-20); Basophils # (auto) 0.04 K/uL (0-0.2); Basophils % (auto) 0.1 %; Calcium 8.2 mg/dl (8.5-10.1); Creatinine Clr Calc Pharmacy 41.7 ml/min; Eosinophils # (auto) 0.28 K/uL (0-0.5); Eosinophils % (auto) 0.6 %; Est GFR (African American) 60.9; Est GFR (Non-African American) 52.5; Immature Granulocytes % (auto) 1.7 %; Lymphocytes # (auto) 2.18 K/uL (1.2-3.4); Lymphocytes % (auto) 4.7 %; Monocytes # (auto) 1.18 K/uL (0.11-0.59); Monocytes % (auto) 2.5 %; Neutrophils # (auto) 42.29 K/uL (1.4-6.5); Neutrophils % (auto) 90.4 %; Polychromasia 1+; Potassium 3.7 mmol/L (3.5-5.1); Stomatocytes 1+
[2020-03-12] MEDS ORDERED: SODIUM CHLORIDE 0.9% 250 ML IV PRN (08:57)
--- NOTE | 2020-03-12 09:04 | XRay Report ---
XR chest 1V portable CLINICAL HISTORY: hypoxia COMPARISON STUDY: 03/10/2020 FINDINGS: The heart is the upper limits of normal in size. There is diffuse elevation of the intersti tium. Linear basilar opacities are likely atelectatic. There are increasing right midlung zone airspa ce opacities. The right-sided PICC catheter remains unchanged in position.[ IMPRESSION: 1. Diffuse elevation of interstitium suggesting pulmonary vascular congestion. 2. More focal right midlung zone airspace opacities, superimposed pneumonia versus focal edema 3. Basilar atelectasis ACT 112: Negative or not required by law. Electronically signed by: Bacilio Vasquez M.D. 03/12/2020 9:02 AM
[2020-03-12] MEDS ORDERED: SODIUM CHLORIDE 0.9% 1000ML 500 ML IV ONE (09:12)
--- NOTE | 2020-03-12 09:20 | Hospitalist Progress Note ---
Date of Service March 12, 2020 Assessment & Plan (1) Acute and chronic respiratory failure with hypoxia: earlier this admission acute resp failure was 2nd to volume overload and pneumonitis. etiology of latter?? to cover for possible hospital-acquired pneumonia/gram negative pneumonia he was placed on zosyn on 03/05. He completed 7 days of zosyn (last dose 03/11). This am had severe acute respiratory distress/failure likely due to oxymask coming off for at least 5 minutes. profound hypoxia leading to unresponsiveness, hypotension, and new onset a.fib with ischemic changes. suspect that the profound hypoxia was due to oxymask inadvertantly coming off. other possibility is that he had acute OK with new onset a.fib leading to hypoxia but patient denying chest pain after his mentation improved. plan - * transfer to PCU * BIPAP * VBG now * STAT lactate, troponin * Tx 1 unit of PRBCs in the setting of profound hypoxia, ischemic EKG, etc; follow w/ IV lasix * NPO * bedrest called and spoke with Wali, his [id number] updated Wali extensively asked Keyes and pt's daughter to come in later today to discuss options including palliative care/hospice in light of extremely poor prognosis family meeting held about 5pm -- see below for details remains on chronic prednisone. COVID-19 test 02/18/20 was negative. A repeat screening COVID test was sent as patient had been considering LTACH placement. 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 (2) NSTEMI (non-ST elevated myocardial infarction): marked ischemic changes on EKG during the code purple. certainly his anemia and profound hypoxia drove the ischemia. troponin mariama to 1. repeat EKG following code purple showed normalization of T wave inversions. I do believe he had an NSTEMI in the midst of the event. once moved to PCU he had no chest pain. check 1 more troponin later tonight. He has never been dx with CAD but suspect he has such underlying. already takes asa, on coumadin with therapeutic INR, and plavix. he is statin intolerant. (3) Lactic acidosis: 2nd to profound hypoxic event (4) Metabolic encephalopathy: 2nd to profound hypoxia -- improved/ resolved with O2, BiPAP, etc (5) PAF (paroxysmal atrial fibrillation): new onset in the setting of profound hypoxia and anemia rate controlled transfuse PRBCs k/mag wnl serial troponins (6) Acute pneumonitis: etiology? inflammatory pneumonitis unlikely - sed rate, crp wnl. viral? due to aspiration event? other? either way pneumonitis improved as seen on chest CT obtained yesterday. completed 7-day course of IV zosyn - antibiotics d/c. see acute/chronic resp failure above re: today's events appreciate pulmonary assistance (7) Leukocytosis: peripheral path report suggests this is likely leukamoid reaction. no suspicious features involving WBC line. no leukemic features. ESR, Crp, procal all normal. Right foot clean. Blood cx's negative. CT chest yesterday w/o abscess, empyema, etc WBC count largely unchanged today. if WBCs continue to rise through Friday then formal heme/onc consult. CBC am. (8) Osteomyelitis: Patient with history of PAD, DM, osteomyelitis of right foot. 02/23/20 -procedure on right foot by Dr Dumont -- s/p - 1. Right foot irrigation and debridement of fifth metatarsal head ulcer measuring 3.0 cm x 2.75 cm full thickness. 2. Right foot irrigation and debridement of lateral distal ulcer including skin, fascia, dermis and joint capsule of fifth metatarsal head measuring 3 cm x 2.75 cm. 3. Application of TheraSkin split thickness skin allograft to fifth metatarsal head region, right foot. MSSA from wound. Telehealth ID consult completed. They recommended 4-6 weeks of cefazolin IV on discharge. Has PICC in place. (9) Idiopathic interstitial pneumonia: Chronic. Patient on 4-5L NC at baseline. Follows with Drs. Mcgraw and Shirley Dailey in the office. Typically on prednisone 3mg po daily. Cont Prednisone - weaned to 15mg by Dr Coy yesterday. 2nd to rheumatoid lung? (10) Essential thrombocytosis: Chronic Resumed hydroxyurea 500mg BID on 03/09/20 repeat CBC in am (11) Anemia: Chronic. Baseline Hgb 8-9. On hydroxyurea for chronic thrombocytosis. B12/folate on 02/07 were wnl. Ferritin 33 c/w iron deficiency. Stool heme+ Patient is on asa, plavix, AND coumadin - high risk of occult GI bleeding. stool indeed is heme POSITIVE gave venofer 200mg IV on 03/10. Received 1/2 unit PRBCs on 02/22 and developed worsening resp failure requiring diuresis and BiPAP. Uncertain if TACO. regardless needs PRBCs today in light of this AM's events, NSTEMI, etc Tx 1 unit PRBCs followed by lasix IV repeat CBC am If patient desires ongoing care (rather than hospice) consider additional runs of venofer (12) Arteriosclerotic cardiovascular disease (ASCVD): Continue ASA, Plavix. Cont to hold MEGAN due to low-normal or low BPs. see NSTEMI above. (13) Benign hypertension: Holding Lisinopril/HCTZ due to low-normal or low BPs. (14) Chronic diastolic CHF (congestive heart failure): acute/chronic. give lasix following PRBCs today. (15) CKD (chronic kidney disease) stage 3, GFR 30-59 ml/min: Baseline Cr 1.3. Cr 1.2 today. repeat BMP am. (16) Diabetes mellitus: improved with lantus & novolog adjustments. cont to adjust as necessary. Cont to hold home Glipizide and Metformin. (17) Peripheral arterial disease: Chronic. History of stents and angioplasty to bilateral LEs. Patient follows with [place]. Ramos [place] [facility] Continue ASA 81mg and Plavix 75mg daily. (18) History of DVT (deep vein thrombosis): INR therapeutic again today continue 5mg of coumadin daily repeat INR am (19) Rheumatoid arthritis: On daily Prednisone 3 mg once daily typically. Cont to wean prednisone - down to 15mg/day. (20) Bone lesion: As seen on CTA chest earlier this admission. Seen by Dr Amador at [facility] early this year for these bone lesions. At that time PSA was normal. Etiology uncertain. Primary cancer site undetermined. Patient was not wanting aggressive w/u at that time. Repeat PSA this admission not elevated. Had bladder ca in past; underwent cystoscopy early 2019 w/o recurrence. patient stated emphatically again THIS ADMISSION he does NOT want work-up or Rx for this. 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 family is aware of this. (21) Aortic valve stenosis: Mild-moderate. (22) DVT prophylaxis: Coumadin (23) Goals of care, counseling/discussion: very lengthy discussion (45 minutes minimum) held this afternoon with patient, his son, his 3 daughters, his sister and [id number] we discussed today's events we discussed the events and problems of this prolonged hospital stay we reviewed the fact that he has stage 4 cancer of undetermined primary site; also discussed the fact he has consistently told physicians he does NOT want work-up or Rx for such reviewed dispo plans and that LTACH had been discussed last week discussed with them that in light of very, very poor prognosis, today's ayesha marin event, escalating number of medical issues, poor quality of life, etc that the LTACH may not be the best option for him we discussed LTACH vs acute rehab vs SNF vs home we discussed palliative care and hospice spent considerable amount of time discussing hospice pt and family familiar with this - pt's on hospice 09/2019 from pancreatic ca after discussing options patient stated he wanted to hear more about hospice 1 daughter asked if hospice could be done at his home or her home --- patient stated twice "I want to go home". recommended palliative care consult on FRIDAY, 03/13, to begin palliative discussions and potential transition to hospice all questions answered support given to pt and family critical care time today - 100 minutes including attending and running ayesha marin, family meeting, ordering labs/blood/etc, coordinating his care, etc Admission and Anticipated Discharge Date Admission Date: February 23, 2020 Subjective ayesha marin called at 0830 this am. upon arrival patient was having retractions and increased work of breathing. severe pallor & cyanosis. was unresponsive but had pulse and spontaneous breathing. BSG was >100. Unable to obtain any reliable O2 sat and initial systolic BP was 50s. High-flow NC was maxed to 100% FiO2 and liters/min was also maxed. Despite such O2 sat was low 80s. pt's nurse stated he had NOT eaten breakfast. no aspiration event. last night while sleeping he was slightly confused by report and pulling at his oxymask. just before ayesha marin was called patient was found in bed with mask OFF - estimated that mask was off for ~5 minutes. STAT ekg with new onset a.fib and ST depressions I/AVl and V5/V6. ordered BIPAP in zachary of HFNC. BIPAP placed, O2 sats and increased work of breathing both improved with O2 sats >90%. patient started to wake up - denied cp or abd pain. followed commands - strength symmetric x 4 extremities. no obvious facial droop; PERRL on eye exam. patient transferred to PCU. upon arrival EKG was obtained -- now NSR. flipped T waves in lateral leads all upgoing now. lactate returned at 7. later in the day - about 5pm - had about 45 minute long family meeting with 3 daughters, son, sister, and [id number] to discuss care plan, events of hospital stay & today, options for care (ongoing care vs transitioning to hospice), etc pt remains DNR Review of Systems Review of Systems: Unobtainable due to cognitive status Physical Exam Constitutional: + acute distress (severe cyanosis; increased work of breathing as below; unresponsive ), + ill appearing, + cachectic and + altered mental status; + not well developed and + not well nourished Eyes: PERRL ENMT: cyanosis Respiratory: + respiratory distress, + retractions, + uses accessory muscles and + tachypneic Auscultation: + diminished lung sounds and + crackles (fine, bases ); no wheezes Cardiovascular: Rate/Rhythm: regular rate and regular rhythm Heart Sounds: normal S1, normal S2 and + murmur (2/6 LSB systolic) Vessels: posterior tibial pulses present and dorsalis pedis pulses present; no JVD Extremities: no edema Gastrointestinal (Abdomen): normal bowel sounds, soft, nontender, no hepatosplenomegaly Neurologic: moves all extremities; no focal motor deficits Psychiatric: Orientation: + not alert and + not oriented x 3 (when he became r esponsive he followed all commands) Results & Data Results & Data ([facility]) Vital Signs (Past 12 Hours) Vital Signs Temp Pulse Resp BP BP Pulse Ox 03/12/20 07:38 36.8 C 67 15 122/66 94 03/12/20 07:03 68 16 87 L 03/12/20 03:27 61 20 91 03/11/20 23:23 61 18 93 03/11/20 23:00 36.4 C L 68 18 145/67 H 91 Laboratory Results Laboratory Results - last 24 hr 03/11/20 03/11/20 03/11/20 10:13 12:04 17:12 WBC RBC Hgb Hct MCV MCH MCHC RDW Std Deviation RDW Coeff of Dru Plt Count MPV Immature Gran % (Auto) Neut % (Auto) Lymph % (Auto) [place] % (Auto) Eos % (Auto) Baso % (Auto) Neut # (Auto) Lymph # (Auto) [place] # (Auto) Eos # (Auto) Baso # (Auto) Immature Gran # (Auto) Polychromasia Anisocytosis Stomatocytes VBG pH VBG pCO2 VBG pO2 VBG HCO3 VBG O2 Saturation VBG Base Excess Barometric Pressure Sodium Potassium Chloride Carbon Dioxide Anion Gap BUN Creatinine Est Cr Clr Drug Dosing Est GFR ( Amer) Est GFR (Non-Af Amer) BUN/Creatinine Ratio Glucose POC Glucose 136 H 132 H Lactate Calcium Magnesium Troponin I Stool Occult Bld Scrn Positive A Blood Type Antibody Screen Crossmatch 03/11/20 03/12/20 03/12/20 20:53 07:22 07:22 WBC 46.77 H* RBC 2.88 L Hgb 7.2 L Hct 26.4 L MCV 91.7 MCH 25.0 MCHC 27.3 L RDW Std Deviation 64.9 H RDW Coeff of Dru 21.3 H Plt Count 518 H MPV 11.9 H Immature Gran % (Auto) 1.7 Neut % (Auto) 90.4 Lymph % (Auto) 4.7 [place] % (Auto) 2.5 Eos % (Auto) 0.6 Baso % (Auto) 0.1 Neut # (Auto) 42.29 H Lymph # (Auto) 2.18 [place] # (Auto) 1.18 H Eos # (Auto) 0.28 Baso # (Auto) 0.04 Immature Gran # (Auto) 0.80 H Polychromasia 1+ Anisocytosis Present Stomatocytes 1+ VBG pH VBG pCO2 VBG pO2 VBG HCO3 VBG O2 Saturation VBG Base Excess Barometric Pressure Sodium 139 Potassium 3.7 D Chloride 106 Carbon Dioxide 26 Anion Gap 7.0 BUN 60 H Creatinine 1.28 Est Cr Clr Drug Dosing 41.7 Est GFR ( Amer) 60.9 Est GFR (Non-Af Amer) 52.5 BUN/Creatinine Ratio 47.2 H Glucose 87 POC Glucose 199 H Lactate Calcium 8.2 L Magnesium Troponin I Stool Occult Bld Scrn Blood Type Antibody Screen Crossmatch 03/12/20 03/12/20 03/12/20 08:26 09:19 09:19 WBC RBC Hgb Hct MCV MCH MCHC RDW Std Deviation RDW Coeff of Dru Plt Count MPV Immature Gran % (Auto) Neut % (Auto) Lymph % (Auto) [place] % (Auto) Eos % (Auto) Baso % (Auto) Neut # (Auto) Lymph # (Auto) [place] # (Auto) Eos # (Auto) Baso # (Auto) Immature Gran # (Auto) Polychromasia Anisocytosis Stomatocytes VBG pH VBG pCO2 VBG pO2 VBG HCO3 VBG O2 Saturation VBG Base Excess Barometric Pressure Sodium Potassium Chloride Carbon Dioxide Anion Gap BUN Creatinine Est Cr Clr Drug Dosing Est GFR ( Amer) Est GFR (Non-Af Amer) BUN/Creatinine Ratio Glucose POC Glucose 117 H Lactate Calcium Magnesium Pending Troponin I Pending Stool Occult Bld Scrn Blood Type Pending Antibody Screen Pending Crossmatch See Detail 03/12/20 03/12/20 09:19 09:19 WBC RBC Hgb Hct MCV MCH MCHC RDW Std Deviation RDW Coeff of Dru Plt Count MPV Immature Gran % (Auto) Neut % (Auto) Lymph % (Auto) [place] % (Auto) Eos % (Auto) Baso % (Auto) Neut # (Auto) Lymph # (Auto) [place] # (Auto) Eos # (Auto) Baso # (Auto) Immature Gran # (Auto) Polychromasia Anisocytosis Stomatocytes VBG pH 7.28 L VBG pCO2 40 VBG pO2 36 VBG HCO3 18 VBG O2 Saturation < 60.0 VBG Base Excess -7.7 Barometric Pressure 728.7 Sodium Potassium Chloride Carbon Dioxide Anion Gap BUN Creatinine Est Cr Clr Drug Dosing Est GFR ( Amer) Est GFR (Non-Af Amer) BUN/Creatinine Ratio Glucose POC Glucose Lactate Pending Calcium Magnesium Troponin I Stool Occult Bld Scrn Blood Type Antibody Screen Crossmatch Diagnostic Findings cxr - my reading -diffuse interstitial infiltrates, R>L ekg - my reading - a.fib, ST depressions I/AVl and V5/V6 (NEW) PG Care Time/CCT Total # of Minutes Spent Total Time Spent with Patient: Total time spent is greater than 50% in testing coordinator rdination of care (as documented) at patient's floor/unit and/or counseling patient: Critical Care Time: Yes Total Critical Care Time: 100 Coding Level of Care Code None Diagnoses Acute and chronic respiratory failure with hypoxia J96.21 NSTEMI (non-ST elevated myocardial infarction) I21.4 Lactic acidosis E87.2 Metabolic encephalopathy G93.41 PAF (paroxysmal atrial fibrillation) I48.0 Acute pneumonitis J18.9 Leukocytosis D72.829 Leukocytosis type: unspecified Osteomyelitis M86.9 Laterality: right Osteomyelitis location: foot Osteomyelitis type: unspecified type Idiopathic interstitial pneumonia J84.111 Essential thrombocytosis D47.3 Anemia D50.9 Anemia type: iron deficiency Iron deficiency anemia type: unspecified iron deficiency Arteriosclerotic cardiovascular disease (ASCVD) I25.10 Benign hypertension I10 Chronic diastolic CHF (congestive heart failure) I50.32 CKD (chronic kidney disease) stage 3, GFR 30-59 ml/min N18.3 Diabetes mellitus E11.9 Diabetes mellitus complication status: without complication Diabetes mellitus custodial insulin use: without custodial use Diabetes mellitus type: type 2 Peripheral arterial disease I73.9 History of DVT (deep vein thrombosis) Z86.718 Rheumatoid arthritis M06.9 Rheumatoid arthritis location: unspecified site Rheumatoid factor presence: unspecified presence Bone lesion M89.9 Aortic valve stenosis I35.0 Cardiac valve disease etiology: etiology unspecified DVT prophylaxis Z29.9 Goals of care, counseling/discussion Z71.89 Additional Codes Critical Care Time - Critical Care Time: Yes ([id number]) Time Spent (min) 100 (1) Rheumatoid arthritis Rheumatoid arthritis location: unspecified site Rheumatoid factor presence: unspecified presence Qualified Code(s): M06.9 - Rheumatoid arthritis, unspecified (2) Diabetes mellitus Diabetes mellitus complication status: without complication Diabetes mellitus meterman insulin use: without custodial use Diabetes mellitus type: type 2 Qualified Code(s): E11.9 - Type 2 diabetes mellitus without complications (3) Anemia Anemia type: iron deficiency Iron deficiency anemia type: unspecified iron deficiency Qualified Code(s): D50.9 - Iron deficiency anemia, unspecified (4) Aortic valve stenosis Cardiac valve disease etiology: etiology unspecified Qualified Code(s): I35.0 - Nonrheumatic aortic (valve) stenosis (5) Leukocytosis Leukocytosis type: unspecified Qualified Code(s): D72.829 - Elevated white blood cell count, unspecified (6) Osteomyelitis Laterality: right Osteomyelitis location: foot Osteomyelitis type: unspecified type Qualified Code(s): M86.9 - Osteomyelitis, unspecified
[2020-03-12] MEDS: INSULIN ASPART 100 UNITS/ML 3 ML PEN SC SCH ×4 (09:29→20:34)
[2020-03-12 09:34] LABS: Base Excess VBG -7.7 mEq/L; HCO3 VBG 18 mmol/L; PCO2 VBG 40 mmHg (38-50); PO2 VBG 36 mmHg; pH VBG 7.28 (7.36-7.41)
[2020-03-12 09:39] LABS: Oxygen Saturation VBG < 60.0 %
[2020-03-12 09:58] LABS: Magnesium 2.6 mg/dl (1.8-2.4); Troponin I 0.081 ng/ml (0-0.045)
[2020-03-12] MEDS: HYDROXYUREA 500 MG CAP PO SCH ×2 (10:00→20:29)
[2020-03-12] MEDS: PANTOprazole 40 MG TAB PO SCH (10:00)
[2020-03-12] MEDS: MULTIVITAMIN TAB PO SCH (10:00)
[2020-03-12] MEDS: predniSONE 5 MG TAB PO SCH (10:00)
[2020-03-12] MEDS: DOCUSATE SODIUM 100 MG CAP PO SCH ×2 (10:00→20:28)
[2020-03-12] MEDS: INSULIN GLARGINE SOLOSTAR 100 UNITS/ML 3 ML PEN SC SCH ×2 (10:03→20:31)
--- NOTE | 2020-03-12 11:15 | Pulmonology Progress Note ---
Date of Service March 12, 2020 Assessment & Plan (1) Acute pneumonitis: Impression: 79-year-old male with history of interstitial lung disease on chronic steroids of unclear etiology. He was admitted for osteomyelitis of the toe and underwent I&D. After receiving packed cells, he developed progressive hypoxemic respiratory failure, unclear if related to transfusion associated circulatory overload or transfusion associated lung injury. He has been diuresed and treated with IV antibiotics without significant improvement. Steroids were started for potential flare of interstitial lung disease. His acute decompensation this morning likely represents him inadvertently removing his oxygen and becoming significantly hypoxemic. His mental status is improved and he is now on BiPAP with no evidence of respiratory distress. Recommendations: 1. Hypoxemic respiratory failure: Multifactorial due to commendations of fluid overload, interstitial lung disease, obstructive lung disease. And continue supportive care at this point in time with steroids. He is completed a full course of antibiotics and I do not see any evidence of infection on his most recent CT scan. He is receiving antibiotics again and is at risk for repeat transfusion associated circulatory overload or transfusion associated lung injury. We will give steroids now to prevent fluid overload but the patient is at high risk for potential complications. Okay to wean off BiPAP to nasal cannula as tolerated. 2. History of interstitial lung disease: This chest x-ray does not demonstrate an overt flare of interstitial lung disease. At this point time I would favor tapering his prednisone decreasing by 5 mg every 3 days. His baseline requirement is 3 mg a day is been on this for some time. This is been initiated under the care of Dr. Hardin. Unclear if he has RA associated ILD. 3. I doubt pulmonary infection. He is completed a course of Zosyn. Okay to discontinue Zosyn and transition back to antibiotics to cover the osteomyelitis in his foot. Will defer to the primary service. 4. His overall prognosis is extremely guarded at this point in time. Discussions with the patient and family members regarding palliative care may be appropriate. Discussions have been underway to consider getting the patient placed at a long-term acute care facility which would be reasonable. (2) Acute and chronic respiratory failure with hypoxia: (3) Abnormal CT scan of lung: Admission and Anticipated Discharge Date Admission Date: February 23, 2020 Subjective Events of this morning noted. The patient apparently inadvertently removed his oxygen and was found unresponsive and cyanotic with hypotension. There were some EKG changes identified. He was placed on high flow oxygen and transitioned eventually to BiPAP. He was transferred back to the PCU. He is currently now more awake. He denies any chest pain or shortness of breath. No cough fevers or chills. He is receiving a unit of packed red cells currently. Review of Systems Review of Systems: Unobtainable due to reduced consciousness Physical Exam Constitutional: + thin and + frail appearing; no acute distress and no altered mental status ENMT: external ear and nose normal, oropharynx normal Respiratory: no respiratory distress Auscultation: + crackles (bases b/l -- fine, dry sounding ); no wheezes Cardiovascular: Rate/Rhythm: regular rate and regular rhythm Heart Sounds: normal S1, normal S2 and + murmur (2/6 RUSB - systolic) Vessels: posterior tibial pulses present and dorsalis pedis pulses present; no JVD Extremities: no edema Gastrointestinal (Abdomen): normal bowel sounds, soft, nontender, no hepatosplenomegaly Skin: + pallor right foot dressings removed; wound right lateral foot c/d/i and w/o drainage Psychiatric: Orientation: alert and oriented x 3 Results & Data Results & Data ([facility]) Vital Signs (Past 12 Hours) Vital Signs Temp Pulse Pulse Resp BP BP BP 03/12/20 10:48 36.5 C 63 20 110/64 03/12/20 09:22 87 77 16 116/66 03/12/20 07:38 36.8 C 67 15 122/66 03/12/20 07:03 68 16 03/12/20 03:27 61 20 03/11/20 23:23 61 18 03/11/20 23:00 36.4 C L 68 18 145/67 H Pulse Ox 03/12/20 10:48 100 03/12/20 09:22 100 03/12/20 07:38 94 03/12/20 07:03 87 L 03/12/20 03:27 91 03/11/20 23:23 93 03/11/20 23:00 91 Laboratory Results 03/12/20 07:22 03/12/20 07:[address] of the chest from yesterday was reviewed. Diffuse interstitial changes again noted not significantly progressed. The right upper lobe nodule is unchanged. No evidence of pulmonary abscess or significant acute findings. PG Care Time/CCT Total # of Minutes Spent Total Time Spent with Patient: Total time spent is greater than 50% in coordination of care (as documented) at patient's floor/unit and/or counseling patient: Coding Level of Care Code 17732 Subseq Hosp Care Lvl 2 Diagnoses Acute pneumonitis J18.9 Acute and chronic respiratory failure with hypoxia J96.[address] scan of lung R91.8
[2020-03-12] MEDS ORDERED: FUROSEMIDE 40 MG in SYRINGE 0 ML IV ONE (11:30)
[2020-03-12] MEDS ORDERED: FUROSEMIDE 40 MG/4 ML VIAL IV ONE (12:04)
--- NOTE | 2020-03-12 13:28 | Electrocardiogram Report ---
Test Reason : Blood Pressure : / mmHG Vent. Rate : 095 BPM Atrial Rate : 094 BPM P-R Int : 000 ms QRS Dur : 096 ms QT Int : 356 ms P-R-T Axes : 000 094 263 degrees QTc Int : 447 ms Normal sinus rhythm with occasional atrial-paced complexes and Premature ventricular complexes Rightward axis Abnormal ECG When compared with ECG of 04-FEB-2020 06:58, Electronic atrial pacemaker now present ST now depressed in Lateral leads T wave inversion now evident in Lateral leads Confirmed by Cesar Yoo ([id number]) on 03/12/2020 1:28:05 PM Referred By: Osman Dumont Confirmed By:Cesar Yoo
[2020-03-12] MEDS: WARFARIN SOD 5 MG TAB PO SCH (16:21)
[2020-03-12] MEDS: CLOPIDOGREL BISULFATE 75 MG TAB PO SCH (20:28)
[2020-03-12] MEDS: ASPIRIN 81 MG ECTAB PO SCH (20:29)
[2020-03-12] MEDS: SENNA 8.6 MG TAB PO SCH (20:29)
[2020-03-13] MEDS: CEFAZOLIN 2000MG 2,000 MG/15 ML SYR IV SCH ×4 (01:00→23:48)
[2020-03-13] MEDS: ALBUT/IPRATROP 3MG/0.5MG NEB 3 ML VIAL NEB SCH ×5 (03:13→19:27)
[2020-03-13] MEDS: ACETAMINOPHEN 500 MG TAB PO SCH ×3 (05:23→21:14)
[2020-03-13 06:13] LABS: Hematocrit (blood only) 29.7 % (42-52); Hemoglobin 8.4 g/dL (14.0-18.0); Mean Corpuscular Hemoglobin 25.7 pg (25-34); Mean Corpuscular Hgb Conc 28.3 g/dL (32-36); Mean Corpuscular Volume 90.8 fL (80-100); Mean Platelet Volume 11.9 fL (7.4-10.4); Platelet Count 452 K/uL (130-400); RDW Coefficient of Variation 21.3 % (11.5-14.5); RDW Standard Deviation 63.7 fL (36.4-46.3); Red Blood Count 3.27 M/uL (4.7-6.1); White Blood Count 43.74 K/uL (4.8-10.8)
[2020-03-13 06:25] LABS: INR 2.3 (0.9-1.1)
[2020-03-13 06:41] LABS: BUN Creatinine Ratio 51.5 (10-20); Calcium 7.9 mg/dl (8.5-10.1); Creatinine Clr Calc Pharmacy 45.2 ml/min; Est GFR (African American) 67.1; Est GFR (Non-African American) 57.9; Potassium 3.3 mmol/L (3.5-5.1)
[2020-03-13] MEDS: predniSONE 5 MG TAB PO SCH (08:16)
[2020-03-13] MEDS: MULTIVITAMIN TAB PO SCH (08:16)
[2020-03-13] MEDS: HYDROXYUREA 500 MG CAP PO SCH ×2 (08:16→21:16)
[2020-03-13] MEDS: PANTOprazole 40 MG TAB PO SCH (08:16)
[2020-03-13] MEDS: INSULIN ASPART 100 UNITS/ML 3 ML PEN SC SCH ×4 (08:17→21:17)
[2020-03-13] MEDS: DOCUSATE SODIUM 100 MG CAP PO SCH ×2 (08:17→21:16)
[2020-03-13] MEDS: INSULIN GLARGINE SOLOSTAR 100 UNITS/ML 3 ML PEN SC SCH ×2 (08:18→21:17)
--- NOTE | 2020-03-13 09:59 | Palliative Care Consultation ---
Date of Consultation March 13, 2020 Assessment & Plan (1) Goals of care, counseling/discussion: This is an 79 year old [facility] male who presented to the [facility] for a scheduled I&D of a toe with osteomyelitis. Additionally , he has chronic hypoxemic respiratory failure and oxygen requirement of 4 L at baseline. He developed hypoxemic respiratory failure in conjunction with receiving some packed cells postoperatively. Additional PMH includes: RA, thrombocytosis, h/o DVT, idiopathic interstitial PNA, DM2, CKD IV, ASCVD, osteomyelitis and others. He has had a lengthy admission with multiple setbacks. Over the weekend, he was a code purple and was found without his oxymask on. He was placed on Hi-Flow 100% FiO2. Overall his chronic respiratory failure and valvular heart disease are working against him and despite robust and aggressive treatment, he has been refractory to the steroids and aggressive diuresis regimen he is receiving. Per pulmonary, a bronchoscopy would be the next warrented diagnostic procedure; however, with little benefit to his overall improvement of disease progression. Lengthy conversation was held with his family yesterday and they are considering a more conservative approach. Palliative Care was consulted to discuss goals of care. -I met with the patient in room 217. He was sitting in his bedside chair in no apparent distress, talking to his granddaughter and two daughters. One daughter, Megan, lives local. -We talked at length regarding the extent of his illness and in summary discussed the following options for them, as a family, to consider. 1. Place referrals for SNF for hospice services. -Family concerns with visitation protocols -Ensure Hospice support at SNF 2. Transition home with hospice services. -Would need 24/7 care either provided by/between family members or through an outside caregiver agency. 3. Transition to comfort measures while in the hospital -i.e: stopping all blood draws, vital sign monitoring, non-essential medications and focus on ordering comfort medications PRN. -Would monitor patient stability over a 48 hour period to determine if stable enough for transfer out of facility. The family did express that they would want to take him home, but logistically that option is the hardest. We did discuss life expectancy time frame and with the current progression of his disease, I suspect he will live a few weeks to a few months. After discussing this, they would like some time to internally discuss as a family with all 4 siblings to determine if they could rotate to transition him home. The patient did say that he would want to be home, but is also wanting to take their opinions into the decision. A POLST form was completed at the bedside. He was clear that he wanted to remain a DNR/DNI, comfort measures only once he leaves the hospital, trail abx, and no artificial nutrition or hydration. -Ultimately this patient would qualify for hospice and multiple diagnosis could be used. The above was discussed with the showcase maker who will be following up as well. -Pt is DNR/DNI. We will discuss in more detail with the family tomorrow. 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 Sher Attending Physician: Ajay Kirkpatrick DO History of Present Illness This is an 79 year old [facility] male who presented to the [facility] for a scheduled I&D of a toe with osteomyelitis. Additionally , he has chronic hypoxemic respiratory failure and oxygen requirement of 4 L at baseline. He developed hypoxemic respiratory failure in conjunction with receiving some packed cells postoperatively. Additional PMH includes: RA, thrombocytosis, h/o DVT, idiopathic interstitial PNA, DM2, CKD IV, ASCVD, osteomyelitis and others. He has had a lengthy admission with multiple setbacks. Over the weekend, he was a code purple and was found without his oxymask on. He was placed on Hi-Flow 100% FiO2. Overall his chronic respiratory failure and valvular heart disease are working against him and despite robust and aggressive treatment, he has been refractory to the steroids and aggressive diuresis regimen he is receiving. Per pulmonary, a bronchoscopy would be the next warrented diagnostic procedure; however, with little benefit to his overall improvement of disease progression. Lengthy conversation was held with his family yesterday and they are considering a more conservative approach. Palliative Care was consulted to discuss goals of care. Please see A/P for further details. Thank you kindly for involving the palliative care team with this patient. We will follow. Allergies Allergy/AdvReac Type Severity Reaction Status Date / Time Sulfa (Sulfonamide Allergy Intermediate HIVES Verified 02/23/20 10:25 Antibiotics) atorvastatin AdvReac Mild LEG CRAMPS Verified 02/23/20 10:25 cilostazol AdvReac Mild DIARRHEA Verified 02/23/20 10:25 Home Medications Home Medications Medication Instructions Recorded Confirmed Type potassium gluconate 595 mg PO PM 08/06/19 02/23/20 History hydroxyurea 500 mg capsule 500 mg PO BID 08/07/19 02/23/20 History blood sugar diagnostic #100 ea 10/21/19 02/22/20 Rx aspirin [Aspir-81] 81 mg PO HS 11/01/19 02/23/20 History clopidogrel 75 mg PO PM 11/01/19 02/23/20 History glipizide [Glucotrol XL] 5 mg PO BID 11/01/19 02/23/20 History ibuprofen 200 mg PO Q6H PRN 11/01/19 02/23/20 History lisinopril-hydrochlorothiazide 1 tab PO QAM 11/01/19 02/23/20 History warfarin 7.5 mg PO Q OTHER DAY 11/01/19 02/23/20 History metformin 1,000 mg PO BID 11/11/19 02/23/20 History mupirocin 1 appln TOP BID PRN 11/11/19 02/23/20 History furosemide 20 mg tablet 20 mg PO QAM #90 tab 12/22/19 02/23/20 Rx prednisone 1 mg tablet 3 mg PO QPM 12/27/19 02/23/20 History oxycodone 5 mg PO Q6H PRN #10 cap 01/14/20 02/23/20 Rx daptomycin 400 mg IV DAILY 38 Days #38 ea 02/08/20 02/23/20 Rx warfarin 5 mg PO Q OTHER DAY 02/17/20 02/23/20 History Patient History Medical History (Updated 03/13/20 @ 09:59 by ROSHAN Cespedes) Anemia chronic, hgb stable in the 8's range per chart review Aortic valve stenosis Mild to moderate on 07/2019 echo (but GUY 0.92cm2) follows with Dr. Roddy Ramos Arteriosclerotic cardiovascular disease (ASCVD) Benign hypertension Chronic diastolic CHF (congestive heart failure) Per records Diabetes mellitus, type 2 DVT (deep venous thrombosis) per records Essential thrombocytosis Goals of care, counseling/discussion History of bladder cancer 2003--sx and "treatment" History of methicillin resistant staphylococcus aureus (MRSA) History of skin cancer Hyperlipidemia Idiopathic interstitial pneumonia On chronic O2. Currently on steroids* Moderate protein-energy malnutrition On home oxygen therapy 3L N/C at all times Peripheral arterial disease Does have stents and history of angioplasty to bilateral LEs - follows with Dr Ramos; on 10/25/19- pt had angioplasty to RT distal SFA, Pop A, NILAY. Pt takes Plavix and Coumadin Peripheral vascular disease PICC (peripherally inserted central catheter) in place to arm (daptomycin) Polycythemia vera follows with Dr. Alvarado Rheumatoid arthritis SDH (subdural hematoma) 10/2019. Admitted [facility] for traumatic SDH 2/ mechanical fall -- fall also resulted in R prosthetic hip dislocation, s/p reduction. No surgical tx needed for SDH per neurosurgery recommendations Secondary pulmonary hypertension Tremor Bilateral hands- improved Surgical History Amputated toe of left foot Amputated toe of right foot 2nd toe History of bilateral cataract extraction History of bladder surgery removal of cancerous tumor History of colonoscopy History of cystoscopy multiple History of Mohs micrographic surgery for skin cancer x2 History of procedure for peripheral vascular disease bilt lower extremities--3 stents in left LE History of right hip replacement (Acute) History of testicular surgery left for hydrocele History of tooth extraction all teeth Family History Family/Other Coronary heart disease Cancer Family/Other Heart disease Cancer Mother Family history of diabetes mellitus Brother Family history of diabetes mellitus Brother Family history of diabetes mellitus Sister Family history of diabetes mellitus Sister Family history of diabetes mellitus Other No family history of adverse response to anesthesia Social History Smoking Status: Former smoker Tobacco Type: Cigarettes Cigarettes Per Day: 1 PPD smoked for 15 years quit in 1974; Second Hand Exposure: Yes; Hx Alcohol Use: No Hx Substance Use: No Preferred Language: Telugu Communication Ability: Effective [place] Wrapper Maker Required: No Beliefs That Will Affect Care: None marital status: / Current Living Situation: Alone current occupational status: retired Feels Safe at Home: Yes during the past year weight has: remained stable Review of Systems Review of Systems: All systems reviewed & are unremarkable except as noted in HPI & below Physical Exam Constitutional: + ill appearing, + frail appearing and cooperative ENMT: external ear and nose normal, oropharynx normal Neck: trachea midline, no thyromegaly Respiratory: able to speak in complete sentences Auscultation: + diminished lung sounds and + rhonchi Cardiovascular: RRR, no murmur, no edema Heart Sounds: normal S1, normal S2 and + murmur Extremities: normal capillary refill and + edema Gastrointestinal (Abdomen): normal bowel sounds, soft, nontender, no hepatosplenomegaly Skin: no rashes, warm and dry + crusts and + dry skin Psychiatric: A+Ox3, euthymic affect Results & Data Vital Signs (Past 12 Hours) Vital Signs Temp Pulse Pulse Pulse Resp BP BP 03/13/20 07:40 36.6 C 62 18 124/61 03/13/20 06:59 60 16 03/13/20 04:01 36.6 C 56 L 18 133/59 L 03/13/20 03:14 52 L 24 03/13/20 03:10 52 L 24 03/13/20 00:04 36.4 C L 62 18 132/62 03/12/20 23:02 66 18 03/12/20 23:00 66 18 Pulse Ox 03/13/20 07:40 90 03/13/20 06:59 92 03/13/20 04:01 95 03/13/20 03:14 99 03/13/20 03:10 99 03/13/20 00:04 91 03/12/20 23:02 95 03/12/20 23:00 95 PG Care Time/CCT Total # of Minutes Spent Total Time Spent with Patient: Total time spent is greater than 50% in coordination of care (as documented) at patient's floor/unit and/or counseling patient: 100 Coding Level of Care Code 83681 Inpt Consult Level 4 Diagnoses Goals of care, counseling/discussion Z71.89 Interstitial lung disease J84.9 CKD (chronic kidney disease) stage 3, GFR 30-59 ml/min N18.3 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
--- NOTE | 2020-03-13 12:04 | Hospitalist Progress Note ---
Date of Service March 13, 2020 Assessment & Plan (1) Acute and chronic respiratory failure with hypoxia: earlier this admission acute resp failure was 2nd to volume overload and pneumonitis. etiology of latter?? to cover for possible hospital-acquired pneumonia/gram negative pneumonia he was placed on zosyn on 03/05. He completed 7 days of zosyn (last dose 03/11). severe acute respiratory distress/failure likely due to oxymask coming off for at least 5 minutes on 03/12 profound hypoxia leading to unresponsiveness, hypotension, and new onset a.fib with ischemic changes. suspect that the profound hypoxia was due to oxymask inadvertantly coming off. other possibility is that he had acute [place] with new onset a.fib leading to hypoxia but patient denying chest pain after his mentation improved. stable today after BIPAP over night and increase FiO2 currently he is saturating in high 80's on 5L palliative approach now in place, working on different discharge plans ultimately the patient wants to go home suspect this will take a few days to sort out chronic resp failure is 2nd to ILD - typically on 4 L NC continuously. (2) NSTEMI (non-ST elevated myocardial infarction): marked ischemic changes on EKG during the code purple on 03/12 certainly his anemia and profound hypoxia drove the ischemia. troponin mariama to 1. repeat EKG following code purple showed normalization of T wave inversions. likely had an NSTEMI in the midst of the event. once moved to PCU he had no chest pain. no further work up given palliative approach, no chest pain/pressure today continue antiplatelet therapy he is statin intolerant (3) Lactic acidosis: 2nd to profound hypoxic event resolved (4) Metabolic encephalopathy: 2nd to profound hypoxia -- resolved with O2, BiPAP, etc (5) PAF (paroxysmal atrial fibrillation): new onset in the setting of profound hypoxia and anemia rate controlled transfuse PRBCs - Hb 8.2 (6) Acute pneumonitis: etiology? inflammatory pneumonitis unlikely - sed rate, crp wnl. viral? due to aspiration event? other? either way pneumonitis improved as seen on chest CT obtained 03/11 completed 7-day course of IV zosyn - antibiotics d/c. see acute/chronic resp failure above re: today's events appreciate pulmonary assistance (7) Leukocytosis: peripheral path report suggests this is likely leukamoid reaction. no suspicious features involving WBC line. no leukemic features. ESR, Crp, procal all normal. Right foot clean. Blood cx's negative. CT chest 03/11 w/o abscess, empyema, etc WBC rising today, no consult however due to palliative approach (8) Osteomyelitis: Patient with history of PAD, DM, osteomyelitis of right foot. 02/23/20 -procedure on right foot by Dr Dumont -- s/p - 1. Right foot irrigation and debridement of fifth metatarsal head ulcer measuring 3.0 cm x 2.75 cm full thickness. 2. Right foot irrigation and debridement of lateral distal ulcer including skin, fascia, dermis and joint capsule of fifth metatarsal head measuring 3 cm x 2.75 cm. 3. Application of TheraSkin split thickness skin allograft to fifth metatarsal head region, right foot. MSSA from wound. Telehealth ID consult completed. They recommended 4-6 weeks of cefazolin IV on discharge. Has PICC in place. (9) Idiopathic interstitial pneumonia: Chronic. Patient on 4-5L NC at baseline. Follows with Drs. Mcgraw and Shirley Dailey in the office. Typically on prednisone 3mg po daily. Cont Prednisone - weaned to 15mg by Dr Coy yesterday. 2nd to rheumatoid lung? (10) Essential thrombocytosis: Chronic Resumed hydroxyurea 500mg BID on 03/09/20 repeat CBC in am (11) Anemia: Chronic. Baseline Hgb 8-9. On hydroxyurea for chronic thrombocytosis. B12/folate on 02/07 were wnl. Ferritin 33 c/w iron deficiency. Stool heme+ Patient is on asa, plavix, AND coumadin - high risk of occult GI bleeding. stool indeed is heme POSITIVE gave venofer 200mg IV on 03/10. Received 1/2 unit PRBCs on 02/22 and developed worsening resp failure requiring diuresis and BiPAP. Uncertain if TACO. regardless needs PRBCs today in light of this AM's events, NSTEMI, etc no further transfusion, plan for hospice (12) Arteriosclerotic cardiovascular disease (ASCVD): Continue ASA, Plavix. Cont to hold MEGAN due to low-normal or low BPs. see NSTEMI above. (13) Benign hypertension: Holding Lisinopril/HCTZ due to low-normal or low BPs. (14) Chronic diastolic CHF (congestive heart failure): acute/chronic. give lasix following PRBCs today. (15) CKD (chronic kidney disease) stage 3, GFR 30-59 ml/min: Baseline Cr 1.3. Cr 1.2 today. repeat BMP am. (16) Diabetes mellitus: improved with lantus & novolog adjustments. cont to adjust as necessary. Cont to hold home Glipizide and Metformin. (17) Peripheral arterial disease: Chronic. History of stents and angioplasty to bilateral LEs. Patient [place] with [place]. Ramos [place] [facility]. Continue ASA 81mg and Plavix 75mg daily. (18) History of DVT (deep vein thrombosis): INR therapeutic again today continue 5mg of coumadin daily repeat INR am (19) Rheumatoid arthritis: On daily Prednisone 3 mg once daily typically. Cont to wean prednisone - down to 15mg/day. (20) Bone lesion: As seen on CTA chest earlier this admission. Seen by Dr Amador at [facility] early this year for these bone lesions. At that time PSA was normal. Etiology uncertain. Primary cancer site undetermined. Patient was not wanting aggressive w/u at that time. Repeat PSA this admission not elevated. Had bladder ca in past; underwent cystoscopy early 2019 w/o recurrence. patient stated emphatically again THIS ADMISSION he does NOT want work-up or Rx for this. 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 family is aware of this. (21) Aortic valve stenosis: Mild-moderate. (22) DVT prophylaxis: Coumadin (23) Goals of care, counseling/discussion: palliative care talked with family and patient today plan for hospice either at home or briefly at SNF then go home will take a few days to figure out details CM following Admission and Anticipated Discharge Date Admission Date: February 23, 2020 Subjective patient sitting in his chair comfortably, breathing is stable on 5L appreciate palliative discussion with patient and his family working on different options for discharge ultimately the patient wants to go home, family will need to work on that POLST done, he does not want to come back to the hospital he is eating okay, says the food is cold, maybe he will eat better at home Review of Systems Review of Systems: All systems reviewed & are unremarkable except as noted in Subjective Respiratory: + dyspnea and + dyspnea on exertion Physical Exam Constitutional: well developed, + thin, + frail appearing and cooperative; no acute distress Eyes: PERRL, conjunctivae normal, anicteric sclerae ENMT: external ear and nose normal, oropharynx normal Neck: trachea midline, no thyromegaly Respiratory: normal respiratory effort; no respiratory distress and no labored breathing Auscultation: + diminished lung sounds Cardiovascular: RRR, no murmur, no edema Gastrointestinal (Abdomen): normal bowel sounds, soft, nontender, no hepatosplenomegaly Musculoskeletal: no cyanosis or clubbing, extremities motor strength 5/5 Head/Neck/Chest: normocephalic, head atraumatic and neck supple Extremities: extremities normal to inspection and + abnormal strength (generalized weakness) Skin: no rashes, warm and dry Neurologic: patellar DTR's 2+ bilat, sensation intact and PERRL, EOMI, accommodation nl, no face palsy, no dysarthria Psychiatric: A+Ox3, euthymic affect Lymphatic: no cervical or axillary lymphadenopathy Results & Data Results & Data ([facility]) Vital Signs (Past 12 Hours) Vital Signs Temp Pulse Pulse Pulse Resp BP BP 03/13/20 11:05 36.5 C 64 19 131/63 03/13/20 07:40 36.6 C 62 18 124/61 03/13/20 06:59 60 16 03/13/20 04:01 36.6 C 56 L 18 133/59 L 03/13/20 03:14 52 L 24 03/13/20 03:10 52 L 24 03/13/20 00:04 36.4 C L 62 18 132/62 Pulse Ox 03/13/20 11:05 94 03/13/20 07:40 90 03/13/20 06:59 92 03/13/20 04:01 95 03/13/20 03:14 99 03/13/20 03:10 99 03/13/20 00:04 91 Laboratory Results Laboratory Results - last 24 hr 03/12/20 03/12/20 03/12/20 09:19 11:54 15:20 WBC RBC Hgb 8.2 L Hct MCV MCH MCHC RDW Std Deviation RDW Coeff of Dru Plt Count MPV PT INR Sodium Potassium Chloride Carbon Dioxide Anion Gap BUN Creatinine Est Cr Clr Drug Dosing Est GFR ( Amer) Est GFR (Non-Af Amer) BUN/Creatinine Ratio Glucose POC Glucose 166 H Calcium Troponin I Crossmatch See Detail 03/12/20 03/12/20 03/12/20 15:20 16:04 20:32 WBC RBC Hgb Hct MCV MCH MCHC RDW Std Deviation RDW Coeff of Dru Plt Count MPV PT INR Sodium Potassium Chloride Carbon Dioxide Anion Gap BUN Creatinine Est Cr Clr Drug Dosing Est GFR ( Amer) Est GFR (Non-Af Amer) BUN/Creatinine Ratio Glucose POC Glucose 131 H 208 H Calcium Troponin I 1.090 H* Crossmatch 03/12/20 03/13/20 03/13/20 21:02 05:15 05:15 WBC 43.74 H* RBC 3.27 L Hgb 8.4 L Hct 29.7 L MCV 90.8 MCH 25.7 MCHC 28.3 L RDW Std Deviation 63.7 H RDW Coeff of Dru 21.3 H Plt Count 452 H MPV 11.9 H PT 23.0 H INR 2.3 H Sodium Potassium Chloride Carbon Dioxide Anion Gap BUN Creatinine Est Cr Clr Drug Dosing Est GFR ( Amer) Est GFR (Non-Af Amer) BUN/Creatinine Ratio Glucose POC Glucose Calcium Troponin I 0.876 H* Crossmatch 03/13/20 03/13/20 03/13/20 05:15 07:43 11:02 WBC RBC Hgb Hct MCV MCH MCHC RDW Std Deviation RDW Coeff of Dru Plt Count MPV PT INR Sodium 143 Potassium 3.3 L Chloride 109 H Carbon Dioxide 28 Anion Gap 6.0 BUN 61 H Creatinine 1.18 Est Cr Clr Drug Dosing 45.2 Est GFR ( Amer) 67.1 Est GFR (Non-Af Amer) 57.9 BUN/Creatinine Ratio 51.5 H Glucose 98 POC Glucose 128 H 227 H Calcium 7.9 L Troponin I Crossmatch Medications Administered Current Inpatient Medications Acetaminophen (Tylenol) 1,000 mg PO Q8 RA Stop: 03/24/20 21:59 Last Admin: 03/13/20 05:23 Dose: 1,000 mg Documented by: Al Hydrox/Mg Hydrox/Simethicone (Maalox) 15 ml PO Q4H PRN PRN Reason: Heartburn Stop: 03/24/20 17:26 Albuterol (Duoneb) 3 ml NEB QIDR RA Stop: 04/12/20 10:59 Last Admin: 03/13/20 11:41 Dose: Not Given Documented by: Aspirin (Ecotrin Ectab) 81 mg PO HS RA Stop: 03/24/20 20:59 Last Admin: 03/12/20 20:29 Dose: 81 mg Documented by: Bisacodyl (Dulcolax) 10 mg MS DAILY PRN PRN Reason: Constipation Stop: 03/24/20 17:26 Clopidogrel Bisulfate (Plavix) 75 mg PO PM RA Stop: 03/24/20 20:59 Last Admin: 03/12/20 20:28 Dose: 75 mg Documented by: Dextrose (Dextrose 50%) 25 - 50 ml IV UD PRN; Protocol PRN Reason: Hypoglycemia Protocol Stop: 03/24/20 18:22 Last Admin: 02/24/20 21:25 Dose: 50 ml Documented by: Diphenhydramine HCl (Benadryl Capsule) 25 mg PO Q8H PRN PRN Reason: Itching Stop: 03/24/20 17:26 Docusate Sodium (Colace) 100 mg PO BID RA Stop: 03/24/20 20:59 Last Admin: 03/13/20 08:17 Dose: 100 mg Documented by: Glucagon (Glucagen) 1 mg SQ UD PRN; Protocol PRN Reason: Hypoglycemia Protocol Stop: 03/24/20 18:22 Glucose (Dex4 Glucose) 4 - 8 tabs PO UD PRN; Protocol PRN Reason: Hypoglycemia Protocol Stop: 03/24/20 18:22 Glucose (Glucose 40%) 15 - 30 gm PO UD PRN; Protocol PRN Reason: Hypoglycemia Protocol Stop: 03/24/20 18:22 Heparin Sodium (Beef Lung) (Heparin Sod 10 Unit/Ml Flush) 5 ml FLUSH PRN PRN PRN Reason: Flush Stop: 03/27/20 00:08 Last Admin: 03/13/20 08:38 Dose: 5 ml Documented by: Hydroxyurea (Hydrea) 500 mg PO BID RA Stop: 04/08/20 11:29 Last Admin: 03/13/20 08:16 Dose: 500 mg Documented by: Cefazolin Sodium (Ancef 2000mg) 2,000 mg in 15 mls @ 3.75 mls/min IV Q8H RA Stop: 04/12/20 07:59 Last Admin: 03/13/20 08:23 Dose: 3.75 mls/min Documented by: Insulin Aspart (Novolog Flexpen) 0 units SC ACHS [facility] Stop: 03/24/20 20:59 Last Admin: 03/13/20 08:17 Dose: 5 units Documented by: Insulin Glargine (Lantus Solostar Pen) 20 units SC BID [facility] Stop: 04/09/20 21:29 Last Admin: 03/13/20 08:18 Dose: 20 units Documented by: Magnesium Hydroxide (Milk Of Magnesia) 30 ml PO Q6H PRN PRN Reason: Constipation Stop: 03/24/20 17:26 Last Admin: 03/05/20 11:24 Dose: 30 ml Documented by: Metoclopramide HCl (Reglan) 10 mg IV Q6H PRN PRN Reason: Nausea And Vomiting Stop: 03/24/20 17:26 Miscellaneous (Carbohydrates For Hypoglycemia) 15 - 30 gm PO UD PRN PRN Reason: Hypoglycemia Protocol Stop: 03/24/20 18:22 Multivitamins (Multivitamin Tab) 1 tab PO QAM [facility] Stop: 03/25/20 08:59 Last Admin: 03/13/20 08:16 Dose: 1 tab Documented by: Mupirocin (Bactroban 2%) 1 appln EXT BID PRN PRN Reason: SKIN BREAKDOWN Stop: 03/24/20 18:58 Naloxone HCl (Narcan) 0.1 mg IV Q5M PRN PRN Reason: Oversedation/Resp Depression Stop: 03/24/20 17:26 Ondansetron HCl (Zofran) 4 mg IV Q6H PRN PRN Reason: Nausea And Vomiting Stop: 03/24/20 17:26 Pantoprazole Sodium (Protonix) 40 mg PO QAM [facility] Stop: 03/28/20 10:59 Last Admin: 03/13/20 08:16 Dose: 40 mg Documented by: Prednisone (Prednisone) 15 mg PO DAILY [facility] Stop: 04/10/20 08:59 Last Admin: 03/13/20 08:16 Dose: 15 mg Documented by: Sennosides (Senokot) 17.2 mg PO HS [facility] Stop: 03/24/20 20:59 Last Admin: 03/12/20 20:29 Dose: 17.2 mg Documented by: Tamsulosin HCl (Flomax) 0.4 mg PO QAM PRN PRN Reason: unable to void Stop: 03/24/20 17:26 Tramadol HCl (Ultram) 50 - 100 mg PO Q4H PRN PRN Reason: Pain & Pre PT Stop: 03/24/20 17:26 Last Admin: 03/05/20 00:08 Dose: 100 mg Documented by: Warfarin Sodium (Coumadin) 5 mg PO DAILY@1600 RA Stop: 04/06/20 15:59 Last Admin: 03/12/20 16:21 Dose: 5 mg Documented by: PG Care Time/CCT Total # of Minutes Spent Total Time Spent with Patient: Total time spent is greater than 50% in coordination of care (as documented) at patient's floor/unit and/or counseling patient: Coding Level of Care Code 37817 Subseq Hosp Care Lvl 3 Diagnoses Acute and chronic respiratory failure with hypoxia J96.21 NSTEMI (non-ST elevated myocardial infarction) I21.4 Lactic acidosis E87.2 Metabolic encephalopathy G93.41 PAF (paroxysmal atrial fibrillation) I48.0 Acute pneumonitis J18.9 Leukocytosis D72.829 Leukocytosis type: unspecified Osteomyelitis M86.9 Laterality: right Osteomyelitis location: foot Osteomyelitis type: unspecified type Idiopathic interstitial pneumonia J84.111 Essential thrombocytosis D47.3 Anemia D50.9 Anemia type: iron deficiency Iron deficiency anemia type: unspecified iron deficiency Arteriosclerotic cardiovascular disease (ASCVD) I25.10 Benign hypertension I10 Chronic diastolic CHF (congestive heart failure) I50.32 CKD (chronic kidney disease) stage 3, GFR 30-59 ml/min N18.3 Diabetes mellitus E11.9 Diabetes mellitus complication status: without complication Diabetes mellitus jail insulin use: without predatory animal exterminator use Diabetes mellitus type: type 2 Peripheral arterial disease I73.9 History of DVT (deep vein thrombosis) Z86.718 Rheumatoid arthritis M06.9 Rheumatoid arthritis location: unspecified site Rheumatoid factor presence: unspecified presence Bone lesion M89.9 Aortic valve stenosis I35.0 Cardiac valve disease etiology: etiology unspecified DVT prophylaxis Z29.9 Goals of care, counseling/discussion Z71.89 (1) Rheumatoid arthritis Rheumatoid arthritis location: unspecified site Rheumatoid factor presence: unspecified presence Qualified Code(s): M06.9 - Rheumatoid arthritis, unspecified (2) Diabetes mellitus Diabetes mellitus complication status: without complication Diabetes mellitus predatory animal exterminator insulin use: without predatory animal exterminator use Diabetes mellitus type: type 2 Qualified Code(s): E11.9 - Type 2 diabetes mellitus without complications (3) Anemia Anemia type: iron deficiency Iron deficiency anemia type: unspecified iron deficiency Qualified Code(s): D50.9 - Iron deficiency anemia, unspecified (4) Aortic valve stenosis Cardiac valve disease etiology: etiology unspecified Qualified Code(s): I35.0 - Nonrheumatic aortic (valve) stenosis (5) Leukocytosis Leukocytosis type: unspecified Qualified Code(s): D72.829 - Elevated white blood cell count, unspecified (6) Osteomyelitis Laterality: right Osteomyelitis location: foot Osteomyelitis type: unspecified type Qualified Code(s): M86.9 - Osteomyelitis, unspecified
--- NOTE | 2020-03-13 14:14 | Pulmonology Progress Note ---
Date of Service March 13, 2020 Assessment & Plan (1) Hypoxia: Impression: 79-year-old male with chronic hypoxemic respiratory failure and oxygen requirement of 4 L at baseline presenting now status post I&D of osteomyelitis of right toe. Patient developed hypoxemic respiratory failure in conjunction with receiving some packed cells. He had initially improved with steroids and diuresis and was down to his baseline oxygen requirement yesterday however it has creeped up overnight. Unclear if he may have some concomitant nocturnal hypoventilation superimposed on interstitial lung disease. Recommendations: Multifactorial. Patient has been diuresed and is -2.7 L this admission He did receive antibiotics for MRSA/MSSA. He completed his course of Zosyn and is currently back on cefazolin 2 g every 8 hours. Patient had T-max yesterday of 37.9. Otherwise he has been afebrile He is requiring intermittent high flow oxygen. At the time of my examination he was a 5 L/min via nasal cannula and saturating in the low 90s He does use chronic supplemental oxygen at home at 5 L/min via nasal cannula. He continues with a leukocytosis He continue with daily prednisone. (Home dose of prednisone is 20 mg p.o. daily.) Referral made for select specialty in [place] for long-term acute care. Patient also considering home hospice as an alternative with de-escalation of care. (2) Abnormal CT scan of lung: Multifactorial Interstitial lung disease as well as pneumonitis Patient with chronic hypoxemic failure. Suspect profound hypoxia at home that was undiagnosed Continue treat as above Not a good candidate for surgical biopsy Follow-up in outpatient office on discharge if so elected (3) Interstitial lung disease: Patient was started on steroids this admission which seemed to show some improvement Currently receiving prednisone daily. This has been decreased to 15 mg p.o. daily Continue supplemental oxygen to maintain saturation between 85 and 88% Continue pulmonary toilet and incentive spirometry (4) Moderate protein-energy malnutrition: Recommendations per nutrition (5) Leukocytosis: White count is out of proportion to clinical evaluation. Patient on home prednisone 3mg HS Started on methylprednisolone salvage therapy 02/26/2020 Patient has had a steady rise of WBC since that time Currently the patient is on 20 mg PO prednisone daily Continues on Antibiotics Cefazolin. Zosyn course was completed Patient is afebrile and has no new or worsening symptoms. Leukocytosis type: unspecified Qualified Code(s): D72.829 - Elevated white blood cell count, unspecified (6) History of methicillin resistant staphylococcus aureus (MRSA): Biopsy of right foot in January revealed MRSA. Biopsy this admission shows MSSA Case discussed with Dr. Braun from infectious disease at [facility] Patient changed to cefazolin 2 g IV every 8 hours on 03/01/2020 and will need an additional 4 to 6 weeks of therapy. Patient did receive a course of Zosyn secondary to leukocytosis. Peripheral smear suggested this was a leukemoid reaction. Blood and sputum cultures were all negative. Do not restart Daptomycin if possible as this can be toxic to the lungs Continue contact precautions Thank very much for including us in the care of this patient. We will continue to follow along with you. Please refer to Dr. Lopez's addendum for further recommendations. Admission and Anticipated Discharge Date Admission Date: February 23, 2020 Supervising Physician Co-Signing Physician Notes It seems that the patient is likely going to transition to hospice. The patient has a very poor prognosis with hypoalbuminemia, chronic hypoxemic respiratory failure and valvular heart disease. I would strongly encourage a more palliative approach for this patient. Unfortunately, he seems to be refractory to most of our interventions including steroids and diuresis. A bronchoscopy at this time would likely cause significant distress and potentially worsen his respiratory failure and likely yield minimal benefit. Pulmonary will follow peripherally at this point. Thank you. Subjective Patient seen and examined at bedside. He is in bedside chair. His daughter is present with him at the time of my interview and examination. The patient did have some shortness of breath yesterday which he acknowledges his mask fell off and he became hypoxic. He does not remember moving rooms but he does know that he became hypoxic. This morning he denies any chest pain or tightness. He has no shortness of breath with nasal cannula on at 5 L/min. He has no significant cough or sputum production. He denies any hemoptysis. He denies any fever. He has no other acute complaints. Review of Systems Review of Systems: All systems reviewed & are unremarkable except as noted in HPI & below Physical Exam Physical Exam: GENERAL : No acute distress EYES: No icterus, gaze conjugate NOSE: No evidence of epistaxis MOUTH: No lesions or candidiasis NECK: Supple LUNGS: Some very fine rales at the bilateral bases. He has no specific rhonchi. There is no appreciation of bronchospasm. HEART: Regular, rate controlled ABDOMEN: Soft, NT, ND, BS Present EXTREMITIES: No LE edema, pedal pulses intact NEURO: A&OX3 Results & Data Results & Data ([facility]) Vital Signs (Past 12 Hours) Vital Signs Temp Pulse Pulse Resp BP BP Pulse Ox 03/13/20 11:05 36.5 C 64 19 131/63 94 03/13/20 07:40 36.6 C 62 18 124/61 90 03/13/20 06:59 60 16 92 03/13/20 04:01 36.6 C 56 L 18 133/59 L 95 03/13/20 03:14 52 L 24 99 03/13/20 03:10 52 L 24 99 Laboratory Results 03/13/20 05:15 03/13/20 05:15 Diagnostic Findings XR chest 1V portable 03/12/2020 CLINICAL HISTORY: hypoxia COMPARISON STUDY: 03/10/2020 FINDINGS: The heart is the upper limits of normal in size. There is diffuse elevation of the interstitium. Linear basilar opacities are likely atelectatic. There are increasing right midlung zone airspace opacities. The right-sided PICC catheter remains unchanged in position.[ IMPRESSION: 1. Diffuse elevation of interstitium suggesting pulmonary vascular congestion. 2. More focal right midlung zone airspace opacities, superimposed pneumonia versus focal edema 3. Basilar atelectasis ACT 112: Negative or not required by law. Electronically signed by: Bacilio Vasquez M.D. 03/12/2020 9:[address] chest wo con CT DOSE: 479.83 mGy.cm HISTORY: Dyspnea worsening leukocytosis hypoxia; ILD; interval TECHNIQUE: Multiaxial CT images of the chest were performed without contrast. A dose lowering technique was utilized adhering to the principles of ALARA. COMPARISON: 02/21/2020 FINDINGS: Moderately improved interstitial prominence throughout both hemithoraces. Residual spiculated nodule right pulmonary apex. Improved pleural effusions with small basilar residual. Residual atelectatic and/or consolidative change in the lung bases also moderately improved. Blastic metastatic change previously described is stable. IMPRESSION: 1. Generally improved exam compared to the prior study. 2. Improving interstitial change throughout both hemithoraces with moderate residual. 3. Improving bibasilar parenchymal infiltrates and effusions. 4. Unchanging spiculated nodularity previously described. ACT 112: Negative or not required by law. The above report was generated using voice recognition software. It may contain grammatical, syntax or spelling errors. Electronically signed by: Shun Batista M.D. 03/11/2020 11:09 AM PG Care Time/CCT Total # of Minutes Spent Total Time Spent with Patient: Total time spent is greater than 50% in coordination of care (as documented) at patient's floor/unit and/or counseling patient: 30 minutes including discussion with daughter and granddaughter Coding Level of Care Code 92961 Subseq Hosp Care Lvl 2 Diagnoses Hypoxia R09.[address] scan of lung R91.8 Interstitial lung disease J84.9 Moderate protein-energy malnutrition E44.0 Leukocytosis D72.829 Leukocytosis type: unspecified History of methicillin resistant staphylococcus aureus (MRSA) Z86.14 Time Spent (min) 30
[2020-03-13] MEDS: WARFARIN SOD 5 MG TAB PO SCH (16:54)
--- NOTE | 2020-03-13 17:45 | Electrocardiogram Report ---
Test Reason : Blood Pressure : / mmHG Vent. Rate : 063 BPM Atrial Rate : 063 BPM P-R Int : 208 ms QRS Dur : 102 ms QT Int : 424 ms P-R-T Axes : 000 085 -57 degrees QTc Int : 433 ms Normal sinus rhythm Nonspecific ST abnormality Abnormal ECG When compared with ECG of 12-MAR-2020 08:53, Vent. rate has decreased BY [address] no longer depressed in Lateral leads T wave inversion no longer evident in Lateral leads Confirmed by Roddy De La Cruz ([id number]) on 03/13/2020 5:44:46 PM Referred By: Osman Dumont Confirmed By:Saji De La Cruz
[2020-03-13] MEDS: ASPIRIN 81 MG ECTAB PO SCH (21:15)
[2020-03-13] MEDS: SENNA 8.6 MG TAB PO SCH (21:15)
[2020-03-13] MEDS: CLOPIDOGREL BISULFATE 75 MG TAB PO SCH (21:15)
[2020-03-14] MEDS: ACETAMINOPHEN 500 MG TAB PO SCH ×3 (05:58→20:59)
[2020-03-14] MEDS: ALBUT/IPRATROP 3MG/0.5MG NEB 3 ML VIAL NEB SCH ×4 (06:58→19:11)
[2020-03-14] MEDS: MULTIVITAMIN TAB PO SCH (08:28)
[2020-03-14] MEDS: PANTOprazole 40 MG TAB PO SCH (08:29)
[2020-03-14] MEDS: HYDROXYUREA 500 MG CAP PO SCH ×2 (08:29→21:00)
[2020-03-14] MEDS: predniSONE 5 MG TAB PO SCH (08:29)
[2020-03-14] MEDS: DOCUSATE SODIUM 100 MG CAP PO SCH ×2 (08:30→21:01)
[2020-03-14] MEDS: INSULIN GLARGINE SOLOSTAR 100 UNITS/ML 3 ML PEN SC SCH ×2 (08:30→20:58)
[2020-03-14] MEDS: INSULIN ASPART 100 UNITS/ML 3 ML PEN SC SCH ×4 (08:32→20:58)
[2020-03-14] MEDS: CEFAZOLIN 2000MG 2,000 MG/15 ML SYR IV SCH ×3 (08:37→23:17)
--- NOTE | 2020-03-14 09:27 | Palliative Care Progress Note ---
Date of Service March 14, 2020 Assessment & Plan (1) Goals of care, counseling/discussion: -I received a call this morning from the patients daughter, and Megan PETERSEN. She did discuss that her sibling expressed referrals were placed at a SNF and they were leaning towards a home approach with hospice support. -I discussed the above with the watch caser, Radha HADLEY who will reach out to her directly to discuss more discharge plans. She can be best reached at [phone]. -I met with the patient in room 217. He was sitting in his bedside chair in no apparent distress and just finished lunch. -At this time, if he would return home with hospice services, he would do well with nasal cannula instead of hi-flow needs, but I would encourage choosing an agency that is progressive and has capability to do Hi-Flow O2 just in case. -Yesterday 03/13/20 I talked at length regarding the extent of his illness and in summary discussed the following options for them, as a family, to consider. 1. Place referrals for SNF for hospice services. -Family concerns with visitation protocols -Ensure Hospice support at SNF 2. Transition home with hospice services. -Would need 24/ care either provided by/between family members or through an outside caregiver agency. 3. Transition to comfort measures while in the hospital -i.e: stopping all blood draws, vital sign monitoring, non-essential medications and focus on ordering comfort medications PRN. -Would monitor patient stability over a 48 hour period to determine if stable enough for transfer out of facility. The family did express that they would want to take him home, but logistically that option is the hardest. We did discuss life expectancy time frame and with the current progression of his disease, I suspect he will live a few weeks to a few months. After discussing this, they would like some time to internally discuss as a family with all 4 siblings to determine if they could rotate to transition him home. The patient did say that he would want to be home, but is also wanting to take their opinions into the decision. A POLST form was completed at the bedside. He was clear that he wanted to remain a DNR/DNI, comfort measures only once he leaves the hospital, trail abx, and no artificial nutrition or hydration. -Ultimately this patient would qualify for hospice and multiple diagnosis could be used. The above was discussed with the watch caser who will be following up as well. -Pt is DNR/DNI. -Await family decisions and case management direction. 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 Pt daughter and POA called me this morning. POLST done, he does not want to come back to the hospital See A/P for more details Physical Exam Constitutional: + ill appearing, + frail appearing and cooperative ENMT: external ear and nose normal, oropharynx normal Neck: trachea midline, no thyromegaly Respiratory: able to speak in complete sentences Auscultation: + diminished lung sounds and + rhonchi Cardiovascular: RRR, no murmur, no edema Heart Sounds: normal S1, normal S2 and + murmur Extremities: normal capillary refill and + edema Gastrointestinal (Abdomen): normal bowel sounds, soft, nontender, no hepatosplenomegaly Skin: no rashes, warm and dry + crusts and + dry skin Psychiatric: A+Ox3, euthymic affect Results & Data Vital Signs (Past 12 Hours) Vital Signs Temp Pulse Pulse Resp BP BP Pulse Ox 03/14/20 07:10 36.4 C L 61 18 122/59 L 95 03/14/20 06:58 17 94 03/14/20 02:59 36.4 C L 64 19 116/56 L 91 03/13/20 23:10 36.4 C L 72 20 106/62 85 L PG Care Time/CCT Total # of Minutes Spent Total Time Spent with Patient: Total time spent is greater than 50% in coordination of care (as documented) at patient's floor/unit and/or counseling patient: 35 Coding Level of Care Code 20714 Subseq Hosp Care Lvl 3 Diagnoses Goals of care, counseling/discussion Z71.89 Interstitial lung disease J84.9 CKD (chronic kidney disease) stage 3, GFR 30-59 ml/min N18.3 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 (1) Aortic valve stenosis Cardiac valve disease etiology: etiology unspecified Qualified Code(s): I35.0 - Nonrheumatic aortic (valve) stenosis
[2020-03-14] MEDS: WARFARIN SOD 5 MG TAB PO SCH (17:08)
[2020-03-14] MEDS: SENNA 8.6 MG TAB PO SCH (21:00)
[2020-03-14] MEDS: CLOPIDOGREL BISULFATE 75 MG TAB PO SCH (21:01)
[2020-03-14] MEDS: ASPIRIN 81 MG ECTAB PO SCH (21:01)
--- NOTE | 2020-03-14 21:55 | Hospitalist Progress Note ---
Date of Service March 14, 2020 Assessment & Plan (1) Acute and chronic respiratory failure with hypoxia: earlier this admission acute resp failure was 2nd to volume overload and pneumonitis. etiology of latter?? to cover for possible hospital-acquired pneumonia/gram negative pneumonia he was placed on zosyn on 03/05. He completed 7 days of zosyn (last dose 03/11). severe acute respiratory distress/failure likely due to oxymask coming off for at least 5 minutes on 03/12 profound hypoxia leading to unresponsiveness, hypotension, and new onset a.fib with ischemic changes. suspect that the profound hypoxia was due to oxymask inadvertantly coming off. other possibility is that he had acute FL with new onset a.fib leading to hypoxia but patient denying chest pain after his mentation improved. stable for two days after BIPAP over night and increase FiO2 has been stable on 5L which he can do at home palliative asking that hospice agency can provide HFNC if needed palliative approach now in place, working on different discharge plans ultimately the patient wants to go home suspect this will take a few days to sort out, may need to go SNF short term first chronic resp failure is 2nd to ILD - typically on 4 L NC continuously. (2) NSTEMI (non-ST elevated myocardial infarction): marked ischemic changes on EKG during the code purple on 03/12 certainly his anemia and profound hypoxia drove the ischemia. troponin mariama to 1. repeat EKG following code purple showed normalization of T wave inversions. likely had an NSTEMI in the midst of the event. once moved to PCU he had no chest pain. no further work up given palliative approach, no chest pain/pressure for two days continue antiplatelet therapy he is statin intolerant (3) Lactic acidosis: 2nd to profound hypoxic event resolved (4) Metabolic encephalopathy: 2nd to profound hypoxia -- resolved with O2, BiPAP, etc (5) PAF (paroxysmal atrial fibrillation): new onset in the setting of profound hypoxia and anemia rate controlled transfuse PRBCs - Hb 8.2 (6) Acute pneumonitis: etiology? inflammatory pneumonitis unlikely - sed rate, crp wnl. viral? due to aspiration event? other? either way pneumonitis improved as seen on chest CT obtained 03/11 completed 7-day course of IV zosyn - antibiotics d/c. see acute/chronic resp failure above re: today's events appreciate pulmonary assistance (7) Leukocytosis: peripheral path report suggests this is likely leukamoid reaction. no suspicious features involving WBC line. no leukemic features. ESR, Crp, procal all normal. Right foot clean. Blood cx's negative. CT chest 03/11 w/o abscess, empyema, etc WBC rising today, no consult however due to palliative approach (8) Osteomyelitis: Patient with history of PAD, DM, osteomyelitis of right foot. 02/23/20 -procedure on right foot by Dr Dumont -- s/p - 1. Right foot irrigation and debridement of fifth metatarsal head ulcer measuring 3.0 cm x 2.75 cm full thickness. 2. Right foot irrigation and debridement of lateral distal ulcer including skin, fascia, dermis and joint capsule of fifth metatarsal head measuring 3 cm x 2.75 cm. 3. Application of TheraSkin split thickness skin allograft to fifth metatarsal head region, right foot. MSSA from wound. Telehealth ID consult completed. They recommended 4-6 weeks of cefazolin IV on discharge. Has PICC in place. (9) Idiopathic interstitial pneumonia: Chronic. Patient on 4-5L NC at baseline. Follows with Drs. Mcgraw and Shirley Dailey in the office. Typically on prednisone 3mg po daily. Cont Prednisone - weaned to 15mg by Dr Coy yesterday. 2nd to rheumatoid lung? (10) Essential thrombocytosis: Chronic Resumed hydroxyurea 500mg BID on 03/09/20 repeat CBC in am (11) Anemia: Chronic. Baseline Hgb 8-9. On hydroxyurea for chronic thrombocytosis. B12/folate on 02/07 were wnl. Ferritin 33 c/w iron deficiency. Stool heme+ Patient is on asa, plavix, AND coumadin - high risk of occult GI bleeding. stool indeed is heme POSITIVE gave venofer 200mg IV on 03/10. Received 1/2 unit PRBCs on 02/22 and developed worsening resp failure requiring diuresis and BiPAP. Uncertain if TACO. regardless needs PRBCs today in light of this AM's events, NSTEMI, etc no further transfusion, plan for hospice (12) Arteriosclerotic cardiovascular disease (ASCVD): Continue ASA, Plavix. Cont to hold MEGAN due to low-normal or low BPs. see NSTEMI above. (13) Benign hypertension: Holding Lisinopril/HCTZ due to low-normal or low BPs. (14) Chronic diastolic CHF (congestive heart failure): acute/chronic. give lasix following PRBCs today. (15) CKD (chronic kidney disease) stage 3, GFR 30-59 ml/min: Baseline Cr 1.3. Cr 1.2 today. repeat BMP am. (16) Diabetes mellitus: improved with lantus & novolog adjustments. cont to adjust as necessary. Cont to hold home Glipizide and Metformin. (17) Peripheral arterial disease: Chronic. History of stents and angioplasty to bilateral LEs. Patient follows with Dr. Ramos - [facility] [place] [facility] Continue ASA 81mg and Plavix 75mg daily. (18) History of DVT (deep vein thrombosis): INR therapeutic again today continue 5mg of coumadin daily repeat INR am (19) Rheumatoid arthritis: On daily Prednisone 3 mg once daily typically. Cont to wean prednisone - down to 15mg/day. (20) Bone lesion: As seen on CTA chest earlier this admission. Seen by Dr Amador at [facility] early this year for these bone lesions. At that time PSA was normal. Etiology uncertain. Primary cancer site undetermined. Patient was not wanting aggressive w/u at that time. Repeat PSA this admission not elevated. Had bladder ca in past; underwent cystoscopy early 2019 w/o recurrence. patient stated emphatically again THIS ADMISSION he does NOT want work-up or Rx for this. 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 family is aware of this. (21) Aortic valve stenosis: Mild-moderate. (22) DVT prophylaxis: Coumadin (23) Goals of care, counseling/discussion: palliative care talked with family and patient today plan for hospice either at home or briefly at SNF then go home will take a few days to figure out details CM following Admission and Anticipated Discharge Date Admission Date: February 23, 2020 Subjective patient doing well today eating well, breathing stable, making urine, moving his bowels d/w palliative, planning on either SNF short term and then home or directly home with hospice family will need to make sure they can provide 24/7 care Review of Systems Review of Systems: All systems reviewed & are unremarkable except as noted in Subjective Constitutional: + fatigue and + weakness; no fever Respiratory: + cough, + dyspnea and + dyspnea on exertion Cardiovascular: no chest pain and no edema Gastrointestinal: no abdominal pain, no nausea, no vomiting, no constipation and no diarrhea/loose stools Physical Exam Constitutional: well developed, + thin, + frail appearing and cooperative; no acute distress Eyes: PERRL, conjunctivae normal, anicteric sclerae ENMT: external ear and nose normal, oropharynx normal Neck: trachea midline, no thyromegaly Respiratory: normal respiratory effort; no respiratory distress and no labored breathing Auscultation: + diminished lung sounds Cardiovascular: RRR, no murmur, no edema Gastrointestinal (Abdomen): normal bowel sounds, soft, nontender, no hepatosplenomegaly Musculoskeletal: no cyanosis or clubbing, extremities motor strength 5/5 Head/Neck/Chest: normocephalic, head atraumatic and neck supple Extremities: extremities normal to inspection and + abnormal strength (generalized weakness) Skin: no rashes, warm and dry Neurologic: patellar DTR's 2+ bilat, sensation intact and PERRL, EOMI, accommodation nl, no face palsy, no dysarthria Psychiatric: A+Ox3, euthymic affect Lymphatic: no cervical or axillary lymphadenopathy Results & Data Results & Data ([facility]) Vital Signs (Past 12 Hours) Vital Signs Temp Pulse Pulse Resp BP BP Pulse Ox 03/14/20 19:27 36.7 C 75 18 125/64 90 03/14/20 19:11 82 18 91 03/14/20 15:19 36.7 C 69 19 126/60 87 L 03/14/20 15:07 81 18 90 03/14/20 11:08 75 18 90 03/14/20 11:04 36.6 C 72 18 112/61 91 Medications Administered Current Inpatient Medications Acetaminophen (Tylenol) 1,000 mg PO Q8 RA Stop: 03/24/20 21:59 Last Admin: 03/14/20 20:59 Dose: 1,000 mg Documented by: Al Hydrox/Mg Hydrox/Simethicone (Maalox) 15 ml PO Q4H PRN PRN Reason: Heartburn Stop: 03/24/20 17:26 Albuterol (Duoneb) 3 ml NEB QIDR RA Stop: 04/12/20 10:59 Last Admin: 03/14/20 19:11 Dose: 3 ml Documented by: Aspirin (Ecotrin Ectab) 81 mg PO HS RA Stop: 03/24/20 20:59 Last Admin: 03/14/20 21:01 Dose: 81 mg Documented by: Bisacodyl (Dulcolax) 10 mg SC DAILY PRN PRN Reason: Constipation Stop: 03/24/20 17:26 Clopidogrel Bisulfate (Plavix) 75 mg PO PM RA Stop: 03/24/20 20:59 Last Admin: 03/14/20 21:01 Dose: 75 mg Documented by: Dextrose (Dextrose 50%) 25 - 50 ml IV UD PRN; Protocol PRN Reason: Hypoglycemia Protocol Stop: 03/24/20 18:22 Last Admin: 02/24/20 21:25 Dose: 50 ml Documented by: Diphenhydramine HCl (Benadryl Capsule) 25 mg PO Q8H PRN PRN Reason: Itching Stop: 03/24/20 17:26 Docusate Sodium (Colace) 100 mg PO BID RA Stop: 03/24/20 20:59 Last Admin: 03/14/20 21:01 Dose: Not Given Documented by: Glucagon (Glucagen) 1 mg SQ UD PRN; Protocol PRN Reason: Hypoglycemia Protocol Stop: 03/24/20 18:22 Glucose (Dex4 Glucose) 4 - 8 tabs PO UD PRN; Protocol PRN Reason: Hypoglycemia Protocol Stop: 03/24/20 18:22 Glucose (Glucose 40%) 15 - 30 gm PO UD PRN; Protocol PRN Reason: Hypoglycemia Protocol Stop: 03/24/20 18:22 Heparin Sodium (Beef Lung) (Heparin Sod 10 Unit/Ml Flush) 5 ml FLUSH PRN PRN PRN Reason: Flush Stop: 03/27/20 00:08 Last Admin: 03/13/20 08:38 Dose: 5 ml Documented by: Hydroxyurea (Hydrea) 500 mg PO BID RA Stop: 04/08/20 11:29 Last Admin: 03/14/20 21:00 Dose: 500 mg Documented by: Cefazolin Sodium (Ancef 2000mg) 2,000 mg in 15 mls @ 3.75 mls/min IV Q8H RA Stop: 04/12/20 07:59 Last Admin: 03/14/20 17:08 Dose: 3.75 mls/min Documented by: Insulin Aspart (Novolog Flexpen) 0 units SC ACHS RA Stop: 03/24/20 20:59 Last Admin: 03/14/20 20:58 Dose: 4 units Documented by: Insulin Glargine (Lantus Solostar Pen) 20 units SC BID [facility] Stop: 04/09/20 21:29 Last Admin: 03/14/20 20:58 Dose: 20 units Documented by: Magnesium Hydroxide (Milk Of Magnesia) 30 ml PO Q6H PRN PRN Reason: Constipation Stop: 03/24/20 17:26 Last Admin: 03/05/20 11:24 Dose: 30 ml Documented by: Metoclopramide HCl (Reglan) 10 mg IV Q6H PRN PRN Reason: Nausea And Vomiting Stop: 03/24/20 17:26 Miscellaneous (Carbohydrates For Hypoglycemia) 15 - 30 gm PO UD PRN PRN Reason: Hypoglycemia Protocol Stop: 03/24/20 18:22 Multivitamins (Multivitamin Tab) 1 tab PO QAM [facility] Stop: 03/25/20 08:59 Last Admin: 03/14/20 08:28 Dose: 1 tab Documented by: Mupirocin (Bactroban 2%) 1 appln EXT BID PRN PRN Reason: SKIN BREAKDOWN Stop: 03/24/20 18:58 Naloxone HCl (Narcan) 0.1 mg IV Q5M PRN PRN Reason: Oversedation/Resp Depression Stop: 03/24/20 17:26 Ondansetron HCl (Zofran) 4 mg IV Q6H PRN PRN Reason: Nausea And Vomiting Stop: 03/24/20 17:26 Pantoprazole Sodium (Protonix) 40 mg PO QAM [facility] Stop: 03/28/20 10:59 Last Admin: 03/14/20 08:29 Dose: 40 mg Documented by: Prednisone (Prednisone) 15 mg PO DAILY [facility] Stop: 04/10/20 08:59 Last Admin: 03/14/20 08:29 Dose: 15 mg Documented by: Sennosides (Senokot) 17.2 mg PO HS [facility] Stop: 03/24/20 20:59 Last Admin: 03/14/20 21:00 Dose: 17.2 mg Documented by: Tamsulosin HCl (Flomax) 0.4 mg PO QAM PRN PRN Reason: unable to void Stop: 03/24/20 17:26 Tramadol HCl (Ultram) 50 - 100 mg PO Q4H PRN PRN Reason: Pain & Pre PT Stop: 03/24/20 17:26 Last Admin: 03/05/20 00:08 Dose: 100 mg Documented by: Warfarin Sodium (Coumadin) 5 mg PO DAILY@1600 RA Stop: 04/06/20 15:59 Last Admin: 03/14/20 17:08 Dose: 5 mg Documented by: PG Care Time/CCT Total # of Minutes Spent Total Time Spent with Patient: Total time spent is greater than 50% in acquisition marketing coordinator rdination of care (as documented) at patient's floor/unit and/or counseling patient: Coding Level of Care Code 43318 Subseq Hosp Care Lvl 2 Diagnoses Acute and chronic respiratory failure with hypoxia J96.21 NSTEMI (non-ST elevated myocardial infarction) I21.4 Lactic acidosis E87.2 Metabolic encephalopathy G93.41 PAF (paroxysmal atrial fibrillation) I48.0 Acute pneumonitis J18.9 Leukocytosis D72.829 Leukocytosis type: unspecified Osteomyelitis M86.9 Osteomyelitis type: unspecified type Osteomyelitis location: foot Laterality: right Idiopathic interstitial pneumonia J84.111 Essential thrombocytosis D47.3 Anemia D50.9 Anemia type: iron deficiency Iron deficiency anemia type: unspecified iron deficiency Arteriosclerotic cardiovascular disease (ASCVD) I25.10 Benign hypertension I10 Chronic diastolic CHF (congestive heart failure) I50.32 CKD (chronic kidney disease) stage 3, GFR 30-59 ml/min N18.3 Diabetes mellitus E11.9 Diabetes mellitus type: type 2 Diabetes mellitus shelter insulin use: without regional intermodal truck driver use Diabetes mellitus complication status: without complication Peripheral arterial disease I73.9 History of DVT (deep vein thrombosis) Z86.718 Rheumatoid arthritis M06.9 Rheumatoid arthritis location: unspecified site Rheumatoid factor presence: unspecified presence Bone lesion M89.9 Aortic valve stenosis I35.0 Cardiac valve disease etiology: etiology unspecified DVT prophylaxis Z29.9 Goals of care, counseling/discussion Z71.89 (1) Leukocytosis Leukocytosis type: unspecified Qualified Code(s): D72.829 - Elevated white blood cell count, unspecified (2) Osteomyelitis Osteomyelitis type: unspecified type Osteomyelitis location: foot Laterality: right Qualified Code(s): M86.9 - Osteomyelitis, unspecified (3) Anemia Anemia type: iron deficiency Iron deficiency anemia type: unspecified iron deficiency Qualified Code(s): D50.9 - Iron deficiency anemia, unspecified (4) Diabetes mellitus Diabetes mellitus type: type 2 Diabetes mellitus shelter insulin use: without regional intermodal truck driver use Diabetes mellitus complication status: without complication Qualified Code(s): E11.9 - Type 2 diabetes mellitus without complications (5) Rheumatoid arthritis Rheumatoid arthritis location: unspecified site Rheumatoid factor presence: unspecified presence Qualified Code(s): M06.9 - Rheumatoid arthritis, unspecified (6) Aortic valve stenosis Cardiac valve disease etiology: etiology unspecified Qualified Code(s): I35.0 - Nonrheumatic aortic (valve) stenosis
[2020-03-15] MEDS: ACETAMINOPHEN 500 MG TAB PO SCH ×3 (05:50→21:23)
[2020-03-15 06:34] LABS: INR 2.3 (0.9-1.1); Prothrombin Time 23.5 Seconds (9.0-12.0)
[2020-03-15 06:45] LABS: BUN Creatinine Ratio 46.4 (10-20); Calcium 7.7 mg/dl (8.5-10.1); Est GFR (African American) 63.9; Est GFR (Non-African American) 55.1; Potassium 3.1 mmol/L (3.5-5.1)
[2020-03-15 06:55] LABS: Hematocrit (blood only) 28.8 % (42-52); Mean Corpuscular Hemoglobin 26.1 pg (25-34); Mean Corpuscular Hgb Conc 27.8 g/dL (32-36); Mean Corpuscular Volume 93.8 fL (80-100); Mean Platelet Volume 11.9 fL (7.4-10.4); Platelet Count 481 K/uL (130-400); RDW Standard Deviation 67.2 fL (36.4-46.3); Red Blood Count 3.07 M/uL (4.7-6.1); White Blood Count 41.27 K/uL (4.8-10.8)
[2020-03-15 06:59] LABS: Anisocytosis Present; Basophils # (auto) 0.03 K/uL (0-0.2); Basophils % (auto) 0.1 %; Eosinophils # (auto) 0.13 K/uL (0-0.5); Eosinophils % (auto) 0.3 %; Immature Granulocytes # (auto) 0.58 K/uL (0.00-0.02); Immature Granulocytes % (auto) 1.4 %; Lymphocytes # (auto) 1.71 K/uL (1.2-3.4); Lymphocytes % (auto) 4.1 %; Monocytes # (auto) 0.74 K/uL (0.11-0.59); Monocytes % (auto) 1.8 %; Neutrophils # (auto) 38.08 K/uL (1.4-6.5); Neutrophils % (auto) 92.3 %; Polychromasia 1+; Tear Drop Cells 1+
[2020-03-15] MEDS: ALBUT/IPRATROP 3MG/0.5MG NEB 3 ML VIAL NEB SCH ×4 (07:09→19:06)
[2020-03-15] MEDS: CEFAZOLIN 2000MG 2,000 MG/15 ML SYR IV SCH ×2 (07:33→17:47)
[2020-03-15] MEDS: INSULIN ASPART 100 UNITS/ML 3 ML PEN SC SCH ×4 (07:57→21:22)
[2020-03-15] MEDS: DOCUSATE SODIUM 100 MG CAP PO SCH ×2 (08:00→22:54)
[2020-03-15] MEDS: MULTIVITAMIN TAB PO SCH (08:01)
[2020-03-15] MEDS: HYDROXYUREA 500 MG CAP PO SCH ×2 (08:01→21:22)
[2020-03-15] MEDS: predniSONE 5 MG TAB PO SCH (08:01)
[2020-03-15] MEDS: PANTOprazole 40 MG TAB PO SCH (08:01)
[2020-03-15] MEDS: INSULIN GLARGINE SOLOSTAR 100 UNITS/ML 3 ML PEN SC SCH ×2 (08:48→21:22)
[2020-03-15] MEDS: WARFARIN SOD 5 MG TAB PO SCH (17:47)
[2020-03-15] MEDS: ASPIRIN 81 MG ECTAB PO SCH (21:22)
[2020-03-15] MEDS: CLOPIDOGREL BISULFATE 75 MG TAB PO SCH (21:23)
--- NOTE | 2020-03-15 22:05 | Hospitalist Progress Note ---
Date of Service March 15, 2020 Assessment & Plan (1) Acute and chronic respiratory failure with hypoxia: earlier this admission acute resp failure was 2nd to volume overload and pneumonitis. etiology of latter?? to cover for possible hospital-acquired pneumonia/gram negative pneumonia he was placed on zosyn on 03/05. He completed 7 days of zosyn (last dose 03/11). severe acute respiratory distress/failure likely due to oxymask coming off for at least 5 minutes on 03/12 profound hypoxia leading to unresponsiveness, hypotension, and new onset a.fib with ischemic changes. suspect that the profound hypoxia was due to oxymask inadvertantly coming off. other possibility is that he had acute [place] with new onset a.fib leading to hypoxia but patient denying chest pain after his mentation improved. 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 troponin mariama to 1. repeat EKG following code purple showed normalization of T wave inversions. likely had an NSTEMI in the midst of the event. once moved to PCU he had no chest pain. no further work up given palliative approach, no chest pain/pressure for two days continue antiplatelet therapy he is statin intolerant (3) Lactic acidosis: 2nd to profound hypoxic event resolved (4) Metabolic encephalopathy: 2nd to profound hypoxia -- resolved with O2, BiPAP, etc (5) PAF (paroxysmal atrial fibrillation): new onset in the setting of profound hypoxia and anemia rate controlled transfuse PRBCs - Hb 8.0 today (6) Acute pneumonitis: etiology? inflammatory pneumonitis unlikely - sed rate, crp wnl. viral? due to aspiration event? other? either way pneumonitis improved as seen on chest CT obtained 03/11 completed 7-day course of IV zosyn - antibiotics d/c. appreciate pulmonary assistance (7) Leukocytosis: peripheral path report suggests this is likely leukamoid reaction. no suspicious features involving WBC line. no leukemic features. ESR, Crp, procal all normal. Right foot clean. Blood cx's negative. CT chest 03/11 w/o abscess, empyema, etc WBC 41k today, no consult however due to palliative approach (8) Osteomyelitis: Patient with history of PAD, DM, osteomyelitis of right foot. 02/23/20 -procedure on right foot by Dr Dumont -- s/p - 1. Right foot irrigation and debridement of fifth metatarsal head ulcer measuring 3.0 cm x 2.75 cm full thickness. 2. Right foot irrigation and debridement of lateral distal ulcer including skin, fascia, dermis and joint capsule of fifth metatarsal head measuring 3 cm x 2.75 cm. 3. Application of TheraSkin split thickness skin allograft to fifth metatarsal head region, right foot. MSSA from wound. Telehealth ID consult completed. They recommended 4-6 weeks of cefazolin IV on discharge. Has PICC in place. will do the IV cefazolin either at home or at SNF (9) Idiopathic interstitial pneumonia: Chronic. Patient on 4-5L NC at baseline. Follows with Drs. Mcgraw and Shirley Dailey in the office. Typically on prednisone 3mg po daily. Cont Prednisone - weaned to 15mg by Dr Coy yesterday. 2nd to rheumatoid lung? (10) Essential thrombocytosis: Chronic Resumed hydroxyurea 500mg BID on 03/09/20 (11) Anemia: Chronic. Baseline Hgb 8-9. On hydroxyurea for chronic thrombocytosis. B12/folate on 02/07 were wnl. Ferritin 33 c/w iron deficiency. Stool heme+ Patient is on asa, plavix, AND coumadin - high risk of occult GI bleeding. stool indeed is heme POSITIVE gave venofer 200mg IV on 03/10. Received 1/2 unit PRBCs on 02/22 and developed worsening resp failure requiring diuresis and BiPAP. Uncertain if TACO. regardless needs PRBCs today in light of this AM's events, NSTEMI, etc no further transfusion, plan for hospice (12) Arteriosclerotic cardiovascular disease (ASCVD): Continue ASA, Plavix. Cont to hold MEGAN due to low-normal or low BPs. see NSTEMI above. (13) Benign hypertension: Holding Lisinopril/HCTZ due to low-normal or low BPs. (14) Chronic diastolic CHF (congestive heart failure): acute/chronic. give lasix following PRBCs today. (15) CKD (chronic kidney disease) stage 3, GFR 30-59 ml/min: Baseline Cr 1.3. stable repeat BMP am. (16) Diabetes mellitus: improved with lantus & novolog adjustments. cont to adjust as necessary. Cont to hold home Glipizide and Metformin. (17) Peripheral arterial disease: Chronic. History of stents and angioplasty to bilateral LEs. Patient follows with Dr. Ramos - [facility]. Continue ASA 81mg and Plavix 75mg daily. (18) History of DVT (deep vein thrombosis): INR therapeutic continue 5mg of coumadin daily (19) Rheumatoid arthritis: On daily Prednisone 3 mg once daily typically. Cont to wean prednisone - down to 15mg/day. (20) Bone lesion: As seen on CTA chest earlier this admission. Seen by Dr Amador at [facility] early this year for these bone lesions. At that time PSA was normal. Etiology uncertain. Primary cancer site undetermined. Patient was not wanting aggressive w/u at that time. Repeat PSA this admission not elevated. Had bladder ca in past; underwent cystoscopy early 2019 w/o recurrence. patient stated emphatically again THIS ADMISSION he does NOT want work-up or Rx for this. 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 family is aware of this. (21) Aortic valve stenosis: Mild-moderate. (22) DVT prophylaxis: Coumadin (23) Goals of care, counseling/discussion: palliative care talked with family and patient plan for hospice either at home or briefly at SNF then go home will take a few days to figure out details CM following Admission and Anticipated Discharge Date Admission Date: February 23, 2020 Subjective patient has a mild nose bleed, nothing severe, likely from oxygen use no dyspnea, saturations in the high 80's eating well, making urine, moving his bowels CM in discussions with family about options for discharge could go to SNF for skilled care for the osteomyelitis and IV antibiotics would likely transition to hospice care eventually patient could also go to home on hospice but family unsure about 24 hour care provided with a list of home agencies Review of Systems Review of Systems: All systems reviewed & are unremarkable except as noted in Subjective Constitutional: + fatigue and + weakness Ear, Nose, Mouth, Throat: + epistaxis Respiratory: + dyspnea on exertion Physical Exam Constitutional: well developed, + thin, + frail appearing and cooperative; no acute distress Eyes: PERRL, conjunctivae normal, anicteric sclerae ENMT: external ear and nose normal, oropharynx normal Nose: + epistaxis Neck: trachea midline, no thyromegaly Respiratory: normal respiratory effort; no respiratory distress and no labored breathing Auscultation: + diminished lung sounds Cardiovascular: RRR, no murmur, no edema Gastrointestinal (Abdomen): normal bowel sounds, soft, nontender, no hepatosplenomegaly Musculoskeletal: no cyanosis or clubbing, extremities motor strength 5/5 Head/Neck/Chest: normocephalic, head atraumatic and neck supple Extremities: extremities normal to inspection and + abnormal strength (generalized weakness) Skin: no rashes, warm and dry Neurologic: patellar DTR's 2+ bilat, sensation intact and PERRL, EOMI, accommodation nl, no face palsy, no dysarthria Psychiatric: A+Ox3, euthymic affect Lymphatic: no cervical or axillary lymphadenopathy Results & Data Results & Data ([facility]) Vital Signs (Past 12 Hours) Vital Signs Temp Pulse Pulse Resp BP BP Pulse Ox 03/15/20 20:23 36.6 C 78 122/58 L 86 L 03/15/20 19:08 82 18 95 03/15/20 15:46 36.7 C 73 23 123/60 87 L 03/15/20 15:18 85 18 86 L 03/15/20 11:30 70 18 86 L 03/15/20 11:11 36.4 C L 75 19 127/67 86 L Laboratory Results Laboratory Results - last 24 hr 03/12/20 03/15/20 03/15/20 09:19 05:45 05:45 WBC 41.27 H* RBC 3.07 L Hgb 8.0 L Hct 28.8 L MCV 93.8 MCH 26.1 MCHC 27.8 L RDW Std Deviation 67.2 H RDW Coeff of Dru 23.0 H Plt Count 481 H MPV 11.9 H Immature Gran % (Auto) 1.4 Neut % (Auto) 92.3 Lymph % (Auto) 4.1 Giles % (Auto) 1.8 Eos % (Auto) 0.3 Baso % (Auto) 0.1 Neut # (Auto) 38.08 H Lymph # (Auto) 1.71 Giles # (Auto) 0.74 H Eos # (Auto) 0.13 Baso # (Auto) 0.03 Immature Gran # (Auto) 0.58 H Hypersegmented Neuts 1+ Polychromasia 1+ Anisocytosis Present Tear Drop Cells 1+ PT 23.5 H INR 2.3 H Sodium Potassium Chloride Carbon Dioxide Anion Gap BUN Creatinine Est Cr Clr Drug Dosing Est GFR ( Amer) Est GFR (Non-Af Amer) BUN/Creatinine Ratio Glucose POC Glucose Calcium Crossmatch See Detail 03/15/20 03/15/20 03/15/20 05:45 07:24 11:08 WBC RBC Hgb Hct MCV MCH MCHC RDW Std Deviation RDW Coeff of Dru Plt Count MPV Immature Gran % (Auto) Neut % (Auto) Lymph % (Auto) Giles % (Auto) Eos % (Auto) Baso % (Auto) Neut # (Auto) Lymph # (Auto) Giles # (Auto) Eos # (Auto) Baso # (Auto) Immature Gran # (Auto) Hypersegmented Neuts Polychromasia Anisocytosis Tear Drop Cells PT INR Sodium 143 Potassium 3.1 L Chloride 111 H Carbon Dioxide 25 Anion Gap 7.0 BUN 57 H Creatinine 1.23 Est Cr Clr Drug Dosing 46.0 Est GFR ( Amer) 63.9 Est GFR (Non-Af Amer) 55.1 BUN/Creatinine Ratio 46.4 H Glucose 127 H POC Glucose 127 H 164 H Calcium 7.7 L Crossmatch 03/15/20 03/15/20 16:39 20:29 WBC RBC Hgb Hct MCV MCH MCHC RDW Std Deviation RDW Coeff of Dru Plt Count MPV Immature Gran % (Auto) Neut % (Auto) Lymph % (Auto) Giles % (Auto) Eos % (Auto) Baso % (Auto) Neut # (Auto) Lymph # (Auto) Giles # (Auto) Eos # (Auto) Baso # (Auto) Immature Gran # (Auto) Hypersegmented Neuts Polychromasia Anisocytosis Tear Drop Cells PT INR Sodium Potassium Chloride Carbon Dioxide Anion Gap BUN Creatinine Est Cr Clr Drug Dosing Est GFR ( Amer) Est GFR (Non-Af Amer) BUN/Creatinine Ratio Glucose POC Glucose 266 H 202 H Calcium Crossmatch Medications Administered Current Inpatient Medications Acetaminophen (Tylenol) 1,000 mg PO Q8 [facility] Stop: 03/24/20 21:59 Last Admin: 03/15/20 21:23 Dose: 1,000 mg Documented by: Al Hydrox/Mg Hydrox/Simethicone (Maalox) 15 ml PO Q4H PRN PRN Reason: Heartburn Stop: 03/24/20 17:26 Albuterol (Duoneb) 3 ml NEB QIDR RA Stop: 04/12/20 10:59 Last Admin: 03/15/20 19:06 Dose: 3 ml Documented by: Aspirin (Ecotrin Ectab) 81 mg PO HS [facility] Stop: 03/24/20 20:59 Last Admin: 03/15/20 21:22 Dose: 81 mg Documented by: Bisacodyl (Dulcolax) 10 mg NM DAILY PRN PRN Reason: Constipation Stop: 03/24/20 17:26 Clopidogrel Bisulfate (Plavix) 75 mg PO PM [facility] Stop: 03/24/20 20:59 Last Admin: 03/15/20 21:23 Dose: 75 mg Documented by: Dextrose (Dextrose 50%) 25 - 50 ml IV UD PRN; Protocol PRN Reason: Hypoglycemia Protocol Stop: 03/24/20 18:22 Last Admin: 02/24/20 21:25 Dose: 50 ml Documented by: Diphenhydramine HCl (Benadryl Capsule) 25 mg PO Q8H PRN PRN Reason: Itching Stop: 03/24/20 17:26 Docusate Sodium (Colace) 100 mg PO BID [facility] Stop: 03/24/20 20:59 Last Admin: 03/15/20 08:00 Dose: Not Given Documented by: Glucagon (Glucagen) 1 mg SQ UD PRN; Protocol PRN Reason: Hypoglycemia Protocol Stop: 03/24/20 18:22 Glucose (Dex4 Glucose) 4 - 8 tabs PO UD PRN; Protocol PRN Reason: Hypoglycemia Protocol Stop: 03/24/20 18:22 Glucose (Glucose 40%) 15 - 30 gm PO UD PRN; Protocol PRN Reason: Hypoglycemia Protocol Stop: 03/24/20 18:22 Heparin Sodium (Beef Lung) (Heparin Sod 10 Unit/Ml Flush) 5 ml FLUSH PRN PRN PRN Reason: Flush Stop: 03/27/20 00:08 Last Admin: 03/13/20 08:38 Dose: 5 ml Documented by: Hydroxyurea (Hydrea) 500 mg PO BID [facility] Stop: 04/08/20 11:29 Last Admin: 03/15/20 21:22 Dose: 500 mg Documented by: Cefazolin Sodium (Ancef 2000mg) 2,000 mg in 15 mls @ 3.75 mls/min IV Q8H RA Stop: 04/12/20 07:59 Last Admin: 03/15/20 17:47 Dose: 3.75 mls/min Documented by: Insulin Aspart (Novolog Flexpen) 0 units SC ACHS [facility] Stop: 03/24/20 20:59 Last Admin: 03/15/20 21:22 Dose: 3 units Documented by: Insulin Glargine (Lantus Solostar Pen) 20 units SC BID [facility] Stop: 04/09/20 21:29 Last Admin: 03/15/20 21:22 Dose: 20 units Documented by: Magnesium Hydroxide (Milk Of Magnesia) 30 ml PO Q6H PRN PRN Reason: Constipation Stop: 03/24/20 17:26 Last Admin: 03/05/20 11:24 Dose: 30 ml Documented by: Metoclopramide HCl (Reglan) 10 mg IV Q6H PRN PRN Reason: Nausea And Vomiting Stop: 03/24/20 17:26 Miscellaneous (Carbohydrates For Hypoglycemia) 15 - 30 gm PO UD PRN PRN Reason: Hypoglycemia Protocol Stop: 03/24/20 18:22 Multivitamins (Multivitamin Tab) 1 [facility] Stop: 03/25/20 08:59 Last Admin: 03/15/20 08:01 Dose: 1 tab Documented by: Mupirocin (Bactroban 2%) 1 appln EXT BID PRN PRN Reason: SKIN BREAKDOWN Stop: 03/24/20 18:58 Naloxone HCl (Narcan) 0.1 mg IV Q5M PRN PRN Reason: Oversedation/Resp Depression Stop: 03/24/20 17:26 Ondansetron HCl (Zofran) 4 mg IV Q6H PRN PRN Reason: Nausea And Vomiting Stop: 03/24/20 17:26 Pantoprazole Sodium (Protonix) 40 mg PO QAM [facility] Stop: 03/28/20 10:59 Last Admin: 03/15/20 08:01 Dose: 40 mg Documented by: Prednisone (Prednisone) 15 mg PO DAILY [facility] Stop: 04/10/20 08:59 Last Admin: 03/15/20 08:01 Dose: 15 mg Documented by: Sennosides (Senokot) 17.2 mg PO HS RA Stop: 03/24/20 20:59 Last Admin: 03/14/20 21:00 Dose: 17.2 mg Documented by: Tamsulosin HCl (Flomax) 0.4 mg PO QAM PRN PRN Reason: unable to void Stop: 03/24/20 17:26 Tramadol HCl (Ultram) 50 - 100 mg PO Q4H PRN PRN Reason: Pain & Pre PT Stop: 03/24/20 17:26 Last Admin: 03/05/20 00:08 Dose: 100 mg Documented by: Warfarin Sodium (Coumadin) 5 mg PO DAILY@1600 [facility] Stop: 04/06/20 15:59 Last Admin: 03/15/20 17:47 Dose: 5 mg Documented by: PG Care Time/CCT Total # of Minutes Spent Total Time Spent with Patient: Total time spent is greater than 50% in coordination of care (as documented) at patient's floor/unit and/or counseling patient: Coding Level of Care Code 59600 Subseq Hosp Care Lvl 2 Diagnoses Acute and chronic respiratory failure with hypoxia J96.21 NSTEMI (non-ST elevated myocardial infarction) I21.4 Lactic acidosis E87.2 Metabolic encephalopathy G93.41 PAF (paroxysmal atrial fibrillation) I48.0 Acute pneumonitis J18.9 Leukocytosis D72.829 Leukocytosis type: unspecified Osteomyelitis M86.9 Osteomyelitis type: unspecified type Osteomyelitis location: foot Laterality: right Idiopathic interstitial pneumonia J84.111 Essential thrombocytosis D47.3 Anemia D50.9 Anemia type: iron deficiency Iron deficiency anemia type: unspecified iron deficiency Arteriosclerotic cardiovascular disease (ASCVD) I25.10 Benign hypertension I10 Chronic diastolic CHF (congestive heart failure) I50.32 CKD (chronic kidney disease) stage 3, GFR 30-59 ml/min N18.3 Diabetes mellitus E11.9 Diabetes mellitus type: type 2 Diabetes mellitus intermediate manager insulin use: without fci use Diabetes mellitus complication status: without complication Peripheral arterial disease I73.9 History of DVT (deep vein thrombosis) Z86.718 Rheumatoid arthritis M06.9 Rheumatoid arthritis location: unspecified site Rheumatoid factor presence: unspecified presence Bone lesion M89.9 Aortic valve stenosis I35.0 Cardiac valve disease etiology: etiology unspecified DVT prophylaxis Z29.9 Goals of care, counseling/discussion Z71.89 (1) Leukocytosis Leukocytosis type: unspecified Qualified Code(s): D72.829 - Elevated white blood cell count, unspecified (2) Osteomyelitis Osteomyelitis type: unspecified type Osteomyelitis location: foot Laterality: right Qualified Code(s): M86.9 - Osteomyelitis, unspecified (3) Anemia Anemia type: iron deficiency Iron deficiency anemia type: unspecified iron deficiency Qualified Code(s): D50.9 - Iron deficiency anemia, unspecified (4) Diabetes mellitus Diabetes mellitus type: type 2 Diabetes mellitus fci insulin use: without fci use Diabetes mellitus complication status: without complication Qualified Code(s): E11.9 - Type 2 diabetes mellitus without complications (5) Rheumatoid arthritis Rheumatoid arthritis location: unspecified site Rheumatoid factor presence: unspecified presence Qualified Code(s): M06.9 - Rheumatoid arthritis, unspecified (6) Aortic valve stenosis Cardiac valve disease etiology: etiology unspecified Qualified Code(s): I35.0 - Nonrheumatic aortic (valve) stenosis
[2020-03-15] MEDS: SENNA 8.6 MG TAB PO SCH (22:54)
[2020-03-16] MEDS: CEFAZOLIN 2000MG 2,000 MG/15 ML SYR IV SCH ×3 (00:59→17:02)
[2020-03-16] MEDS: ALBUT/IPRATROP 3MG/0.5MG NEB 3 ML VIAL NEB SCH ×4 (07:06→19:24)
[2020-03-16] MEDS: ACETAMINOPHEN 500 MG TAB PO SCH ×3 (08:35→21:30)
[2020-03-16] MEDS: INSULIN ASPART 100 UNITS/ML 3 ML PEN SC SCH ×4 (08:36→21:21)
[2020-03-16] MEDS: INSULIN GLARGINE SOLOSTAR 100 UNITS/ML 3 ML PEN SC SCH ×2 (08:36→21:22)
[2020-03-16] MEDS: MULTIVITAMIN TAB PO SCH (08:37)
[2020-03-16] MEDS: DOCUSATE SODIUM 100 MG CAP PO SCH ×2 (08:38→21:30)
[2020-03-16] MEDS: HYDROXYUREA 500 MG CAP PO SCH ×2 (08:38→21:21)
[2020-03-16] MEDS: predniSONE 5 MG TAB PO SCH (08:38)
[2020-03-16] MEDS: PANTOprazole 40 MG TAB PO SCH (08:39)
[2020-03-16] MEDS: WARFARIN SOD 5 MG TAB PO SCH (17:02)
--- NOTE | 2020-03-16 18:30 | Hospitalist Progress Note ---
Date of Service March 16, 2020 Assessment & Plan (1) Acute and chronic respiratory failure with hypoxia: earlier this admission acute resp failure was 2nd to volume overload and pneumonitis. etiology of latter?? to cover for possible hospital-acquired pneumonia/gram negative pneumonia he was placed on zosyn on 03/05. He completed 7 days of zosyn (last dose 03/11). severe acute respiratory distress/failure likely due to oxymask coming off for at least 5 minutes on 03/12 profound hypoxia leading to unresponsiveness, hypotension, and new onset a.fib with ischemic changes. suspect that the profound hypoxia was due to oxymask inadvertantly coming off. other possibility is that he had acute NC with new onset a.fib leading to hypoxia but patient denying chest pain after his mentation improved. stable for four days after BIPAP over night and increase FiO2 has been stable on 5L which he can do at home palliative asking that hospice agency can provide HFNC if needed palliative approach now in place, working on different discharge plans ultimately the patient wants to go home three options: patient goes to SNF to complete 2 more weeks of IV Cefazolin under skilled care could then transition to hospice at SNF but would need to pay room and board he could also choose to go home on hospice but would need to pay for 03/03 care, or have family there some of the time will decide soon, check in with CM 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 troponin mariama to 1. repeat EKG following code purple showed normalization of T wave inversions. likely had an NSTEMI in the midst of the event. once moved to PCU he had no chest pain. no further work up given palliative approach, no chest pain/pressure for four days continue antiplatelet therapy he is statin intolerant (3) Lactic acidosis: 2nd to profound hypoxic event resolved (4) Metabolic encephalopathy: 2nd to profound hypoxia -- resolved with O2, BiPAP, etc (5) PAF (paroxysmal atrial fibrillation): new onset in the setting of profound hypoxia and anemia rate controlled transfuse PRBCs - Hb 8.0 yesterday (6) Acute pneumonitis: etiology? inflammatory pneumonitis unlikely - sed rate, crp wnl. viral? due to aspiration event? other? either way pneumonitis improved as seen on chest CT obtained 03/11 completed 7-day course of IV zosyn - antibiotics d/c. appreciate pulmonary assistance (7) Leukocytosis: peripheral path report suggests this is likely leukamoid reaction. no suspicious features involving WBC line. no leukemic features. ESR, Crp, procal all normal. Right foot clean. Blood cx's negative. CT chest 03/11 w/o abscess, empyema, etc WBC 41k yesterday, no consult however due to palliative approach (8) Osteomyelitis: Patient with history of PAD, DM, osteomyelitis of right foot. 02/23/20 -procedure on right foot by Dr Dumont -- s/p - 1. Right foot irrigation and debridement of fifth metatarsal head ulcer measuring 3.0 cm x 2.75 cm full thickness. 2. Right foot irrigation and debridement of lateral distal ulcer including skin, fascia, dermis and joint capsule of fifth metatarsal head measuring 3 cm x 2.75 cm. 3. Application of TheraSkin split thickness skin allograft to fifth metatarsal head region, right foot. MSSA from wound. Telehealth ID consult completed. They recommended 4-6 weeks of cefazolin IV on discharge, 4 weeks would be next week, they were started on 02/[address] only option to continue IV cefazolin is at SNF (9) Idiopathic interstitial pneumonia: Chronic. Patient on 4-5L NC at baseline. Follows with Drs. Mcgraw and Shirley Dailey in the office. Typically on prednisone 3mg po daily. Cont Prednisone - weaned to 15mg by Dr Coy yesterday. 2nd to rheumatoid lung? (10) Essential thrombocytosis: Chronic Resumed hydroxyurea 500mg BID on 03/09/20 (11) Anemia: Chronic. Baseline Hgb 8-9. On hydroxyurea for chronic thrombocytosis. B12/folate on 02/07 were wnl. Ferritin 33 c/w iron deficiency. Stool heme+ Patient is on asa, plavix, AND coumadin - high risk of occult GI bleeding. stool indeed is heme POSITIVE gave venofer 200mg IV on 03/10. Received 1/2 unit PRBCs on 02/22 and developed worsening resp failure requiring diuresis and BiPAP. Uncertain if TACO. regardless needs PRBCs today in light of this AM's events, NSTEMI, etc no further transfusion, plan for hospice (12) Arteriosclerotic cardiovascular disease (ASCVD): Continue ASA, Plavix. Cont to hold MEGAN due to low-normal or low BPs. see NSTEMI above. (13) Benign hypertension: Holding Lisinopril/HCTZ due to low-normal or low BPs. (14) Chronic diastolic CHF (congestive heart failure): acute/chronic. give lasix following PRBCs today. (15) CKD (chronic kidney disease) stage 3, GFR 30-59 ml/min: Baseline Cr 1.3. stable repeat BMP am. (16) Diabetes mellitus: improved with lantus & novolog adjustments. cont to adjust as necessary. Cont to hold home Glipizide and Metformin. (17) Peripheral arterial disease: Chronic. History of stents and angioplasty to bilateral LEs. Patient follows with Dr. Ramos - [facility] Continue ASA 81mg and Plavix 75mg daily. (18) History of DVT (deep vein thrombosis): INR therapeutic continue 5mg of coumadin daily (19) Rheumatoid arthritis: On daily Prednisone 3 mg once daily typically. Cont to wean prednisone - down to 15mg/day. (20) Bone lesion: As seen on CTA chest earlier this admission. Seen by Dr Amador at [facility] early this year for these bone lesions. At that time PSA was normal. Etiology uncertain. Primary cancer site undetermined. Patient was not wanting aggressive w/u at that time. Repeat PSA this admission not elevated. Had bladder ca in past; underwent cystoscopy early 2019 w/o recurrence. patient stated emphatically again THIS ADMISSION he does NOT want work-up or Rx for this. 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 family is aware of this. (21) Aortic valve stenosis: Mild-moderate. (22) DVT prophylaxis: Coumadin (23) Goals of care, counseling/discussion: palliative care talked with family and patient plan for hospice either at home or briefly at SNF then go home will take a few days to figure out details CM following Admission and Anticipated Discharge Date Admission Date: February 23, 2020 Subjective patient doing well today, sitting up in chair most of the day eating very well, playing cards with his family no chest pain, no dyspnea at rest, no cough, no fever/chills, no pain in right foot talked with patient, family and child support case officer if we continue 2 more weeks of Cefazolin then he can go to skilled care for two weeks, get rehab while there family will not be allowed to visit if he does not want IV antibiotics then he would have to pay for room and board at SNF alternative is to go home with 03/03 care which is very expensive, it was $5000 for a week when he had it before patient states that his ultimate goal is to go home family states that it is up to him, it is his money to cover the cost but then he can be at home on hospice, family can be with him no labs today Review of Systems Review of Systems: All systems reviewed & are unremarkable except as noted in Subjective Physical Exam Constitutional: well developed, + thin, + frail appearing and cooperative; no acute distress Eyes: PERRL, conjunctivae normal, anicteric sclerae ENMT: external ear and nose normal, oropharynx normal Neck: trachea midline, no thyromegaly Respiratory: normal respiratory effort; no respiratory distress and no labored breathing Auscultation: + diminished lung sounds Cardiovascular: RRR, no murmur, no edema Gastrointestinal (Abdomen): normal bowel sounds, soft, nontender, no hepatosplenomegaly Musculoskeletal: no cyanosis or clubbing, extremities motor strength 5/5 He ad/Neck/Chest: normocephalic, head atraumatic and neck supple Extremities: extremities normal to inspection and + abnormal strength (generalized weakness) Skin: no rashes, warm and dry Neurologic: patellar DTR's 2+ bilat, sensation intact and PERRL, EOMI, accommodation nl, no face palsy, no dysarthria Psychiatric: A+Ox3, euthymic affect Lymphatic: no cervical or axillary lymphadenopathy Results & Data Results & Data ([facility]) Vital Signs (Past 12 Hours) Vital Signs Temp Pulse Pulse Resp BP BP Pulse Ox 03/16/20 16:16 36.4 C L 73 23 126/62 88 L 03/16/20 14:56 78 19 88 L 03/16/20 11:27 75 18 88 L 03/16/20 10:54 36.6 C 67 18 112/59 L 87 L 03/16/20 07:32 36.8 C 67 20 107/58 L 89 L 03/16/20 07:08 78 18 86 L Laboratory Results Laboratory Results - last 24 hr 07/31/20 08/05/20 08/06/20 19:00 20:29 08:34 POC Glucose 202 H 108 H SARS-CoV-2 RNA (RT-PCR) Not Detected 03/16/20 03/16/20 10:58 16:18 POC Glucose 191 H 203 H SARS-CoV-2 RNA (RT-PCR) Medications Administered Current Inpatient Medications Acetaminophen (Tylenol) 1,000 mg PO Q8 RA Stop: 03/24/20 21:59 Last Admin: 03/16/20 14:31 Dose: 1,000 mg Documented by: Al Hydrox/Mg Hydrox/Simethicone (Maalox) 15 ml PO Q4H PRN PRN Reason: Heartburn Stop: 03/24/20 17:26 Albuterol (Duoneb) 3 ml NEB QIDR [facility] Stop: 04/12/20 10:59 Last Admin: 03/16/20 14:55 Dose: 3 ml Documented by: Aspirin (Ecotrin Ectab) 81 mg PO HS [facility] Stop: 03/24/20 20:59 Last Admin: 03/15/20 21:22 Dose: 81 mg Documented by: Bisacodyl (Dulcolax) 10 mg SC DAILY PRN PRN Reason: Constipation Stop: 03/24/20 17:26 Clopidogrel Bisulfate (Plavix) 75 mg PO PM [facility] Stop: 03/24/20 20:59 Last Admin: 03/15/20 21:23 Dose: 75 mg Documented by: Dextrose (Dextrose 50%) 25 - 50 ml IV UD PRN; Protocol PRN Reason: Hypoglycemia Protocol Stop: 03/24/20 18:22 Last Admin: 02/24/20 21:25 Dose: 50 ml Documented by: Diphenhydramine HCl (Benadryl Capsule) 25 mg PO Q8H PRN PRN Reason: Itching Stop: 03/24/20 17:26 Docusate Sodium (Colace) 100 mg PO BID [facility] Stop: 03/24/20 20:59 Last Admin: 03/16/20 08:38 Dose: Not Given Documented by: Glucagon (Glucagen) 1 mg SQ UD PRN; Protocol PRN Reason: Hypoglycemia Protocol Stop: 03/24/20 18:22 Glucose (Dex4 Glucose) 4 - 8 tabs PO UD PRN; Protocol PRN Reason: Hypoglycemia Protocol Stop: 03/24/20 18:22 Glucose (Glucose 40%) 15 - 30 gm PO UD PRN; Protocol PRN Reason: Hypoglycemia Protocol Stop: 03/24/20 18:22 Heparin Sodium (Beef Lung) (Heparin Sod 10 Unit/Ml Flush) 5 ml FLUSH PRN PRN PRN Reason: Flush Stop: 03/27/20 00:08 Last Admin: 03/16/20 00:59 Dose: 5 ml Documented by: Hydroxyurea (Hydrea) 500 mg PO BID RA Stop: 04/08/20 11:29 Last Admin: 03/16/20 08:38 Dose: 500 mg Documented by: Cefazolin Sodium (Ancef 2000mg) 2,000 mg in 15 mls @ 3.75 mls/min IV Q8H RA Stop: 04/12/20 07:59 Last Admin: 03/16/20 17:02 Dose: 3.75 mls/min Documented by: Insulin Aspart (Novolog Flexpen) 0 units SC ACHS RA Stop: 03/24/20 20:59 Last Admin: 03/16/20 17:02 Dose: 15 units Documented by: Insulin Glargine (Lantus Solostar Pen) 20 units SC BID RA Stop: 04/09/20 21:29 Last Admin: 03/16/20 08:36 Dose: 20 units Documented by: Magnesium Hydroxide (Milk Of Magnesia) 30 ml PO Q6H PRN PRN Reason: Constipation Stop: 03/24/20 17:26 Last Admin: 03/05/20 11:24 Dose: 30 ml Documented by: Metoclopramide HCl (Reglan) 10 mg IV Q6H PRN PRN Reason: Nausea And Vomiting Stop: 03/24/20 17:26 Miscellaneous (Carbohydrates For Hypoglycemia) 15 - 30 gm PO UD PRN PRN Reason: Hypoglycemia Protocol Stop: 03/24/20 18:22 Multivitamins (Multivitamin Tab) 1 tab PO QAM RA Stop: 03/25/20 08:59 Last Admin: 03/16/20 08:37 Dose: 1 tab Documented by: Mupirocin (Bactroban 2%) 1 appln EXT BID PRN PRN Reason: SKIN BREAKDOWN Stop: 03/24/20 18:58 Naloxone HCl (Narcan) 0.1 mg IV Q5M PRN PRN Reason: Oversedation/Resp Depression Stop: 03/24/20 17:26 Ondansetron HCl (Zofran) 4 mg IV Q6H PRN PRN Reason: Nausea And Vomiting Stop: 03/24/20 17:26 Pantoprazole Sodium (Protonix) 40 mg PO QAM RA Stop: 03/28/20 10:59 Last Admin: 03/16/20 08:39 Dose: 40 mg Documented by: Prednisone (Prednisone) 15 mg PO DAILY [facility] Stop: 04/10/20 08:59 Last Admin: 03/16/20 08:38 Dose: 15 mg Documented by: Sennosides (Senokot) 17.2 mg PO HS [facility] Stop: 03/24/20 20:59 Last Admin: 03/15/20 22:54 Dose: Not Given Documented by: Tamsulosin HCl (Flomax) 0.4 mg PO QAM PRN PRN Reason: unable to void Stop: 03/24/20 17:26 Tramadol HCl (Ultram) 50 - 100 mg PO Q4H PRN PRN Reason: Pain & Pre PT Stop: 03/24/20 17:26 Last Admin: 03/05/20 00:08 Dose: 100 mg Documented by: Warfarin Sodium (Coumadin) 5 mg PO DAILY@1600 [facility] Stop: 04/06/20 15:59 Last Admin: 03/16/20 17:02 Dose: 5 mg Documented by: PG Care Time/CCT Total # of Minutes Spent Total Time Spent: 37 Total Time Spent with Patient: Total time spent is greater than 50% in coordination of care (as documented) at patient's floor/unit and/or counseling patient: 20 minute conversation with family, patient, case management Coding Level of Care Code 51857 Subseq Hosp Care Lvl 3 Diagnoses Acute and chronic respiratory failure with hypoxia J96.21 NSTEMI (non-ST elevated myocardial infarction) I21.4 Lactic acidosis E87.2 Metabolic encephalopathy G93.41 PAF (paroxysmal atrial fibrillation) I48.0 Acute pneumonitis J18.9 Leukocytosis D72.829 Leukocytosis type: unspecified Osteomyelitis M86.9 Osteomyelitis type: unspecified type Osteomyelitis location: foot Laterality: right Idiopathic interstitial pneumonia J84.111 Essential thrombocytosis D47.3 Anemia D50.9 Anemia type: iron deficiency Iron deficiency anemia type: unspecified iron deficiency Arteriosclerotic cardiovascular disease (ASCVD) I25.10 Benign hypertension I10 Chronic diastolic CHF (congestive heart failure) I50.32 CKD (chronic kidney disease) stage 3, GFR 30-59 ml/min N18.3 Diabetes mellitus E11.9 Diabetes mellitus type: type 2 Diabetes mellitus 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 insulin use: without fpc use Diabetes mellitus complication status: without complication Peripheral arterial disease I73.9 History of DVT (deep vein thrombosis) Z86.718 Rheumatoid arthritis M06.9 Rheumatoid arthritis location: unspecified site Rheumatoid factor presence: unspecified presence Bone lesion M89.9 Aortic valve stenosis I35.0 Cardiac valve disease etiology: etiology unspecified DVT prophylaxis Z29.9 Goals of care, counseling/discussion Z71.89 (1) Leukocytosis Leukocytosis type: unspecified Qualified Code(s): D72.829 - Elevated white blood cell count, unspecified (2) Osteomyelitis Osteomyelitis type: unspecified type Osteomyelitis location: foot Laterality: right Qualified Code(s): M86.9 - Osteomyelitis, unspecified (3) Anemia Anemia type: iron deficiency Iron deficiency anemia type: unspecified iron deficiency Qualified Code(s): D50.9 - Iron deficiency anemia, unspecified (4) Diabetes mellitus Diabetes mellitus type: type 2 Diabetes mellitus fpc insulin use: without 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 use Diabetes mellitus complication status: without complication Qualified Code(s): E11.9 - Type 2 diabetes mellitus without complications (5) Rheumatoid arthritis Rheumatoid arthritis location: unspecified site Rheumatoid factor presence: unspecified presence Qualified Code(s): M06.9 - Rheumatoid arthritis, unspecified (6) Aortic valve stenosis Cardiac valve disease etiology: etiology unspecified Qualified Code(s): I35.0 - Nonrheumatic aortic (valve) stenosis
[2020-03-16] MEDS: SENNA 8.6 MG TAB PO SCH (21:21)
[2020-03-16] MEDS: ASPIRIN 81 MG ECTAB PO SCH (21:21)
[2020-03-16] MEDS: CLOPIDOGREL BISULFATE 75 MG TAB PO SCH (21:21)
[2020-03-17] MEDS: CEFAZOLIN 2000MG 2,000 MG/15 ML SYR IV SCH ×3 (00:30→16:20)
[2020-03-17 06:43] LABS: INR 1.5 (0.9-1.1); Prothrombin Time 15.4 Seconds (9.0-12.0)
[2020-03-17] MEDS: ALBUT/IPRATROP 3MG/0.5MG NEB 3 ML VIAL NEB SCH (06:53)
[2020-03-17] MEDS: ACETAMINOPHEN 500 MG TAB PO SCH ×3 (07:02→21:47)
[2020-03-17] MEDS: PANTOprazole 40 MG TAB PO SCH (08:11)
[2020-03-17] MEDS: MULTIVITAMIN TAB PO SCH (08:11)
[2020-03-17] MEDS: HYDROXYUREA 500 MG CAP PO SCH ×2 (08:11→20:19)
[2020-03-17] MEDS: predniSONE 5 MG TAB PO SCH (08:11)
[2020-03-17] MEDS: DOCUSATE SODIUM 100 MG CAP PO SCH ×2 (08:14→20:25)
[2020-03-17] MEDS: INSULIN ASPART 100 UNITS/ML 3 ML PEN SC SCH ×4 (08:16→20:25)
[2020-03-17] MEDS: INSULIN GLARGINE SOLOSTAR 100 UNITS/ML 3 ML PEN SC SCH ×2 (08:17→20:23)
[2020-03-17] MEDS ORDERED: ALBUT/IPRATROP 3MG/0.5MG NEB 3 ML VIAL NEB PRN (09:23)
--- NOTE | 2020-03-17 15:27 | Orthopedic Progress Note ---
Date of Service March 17, 2020 Assessment & Plan (1) Ulcer of right foot: 23 days s/p 1. Right foot irrigation and debridement of fifth metatarsal head ulcer measuring 3.0 cm x 2.75 cm full thickness. 2. Right foot irrigation and debridement of lateral distal ulcer including skin, fascia, dermis and joint capsule of fifth metatarsal head measuring 3 cm x 2.75 cm. 3. Application of TheraSkin split thickness skin allograft to fifth metatarsal head region, right foot. Dressing changed today with Dr. Dumont. All parker and sutures removed. Remain NWB RLE at all times. Discussed NWB status with the patient and his daughter. Will change dressing in 2 days. He is to be discharged in 3 days. He will follow up with Dr. Dumont's office in ~14 days. Admission and Anticipated Discharge Date Admission Date: February 23, 2020 Subjective No right foot complaints except frustration with being NWB for so long. No pain. States dressing is being changed every 2 days. Physical Exam Constitutional: well developed and well nourished; no acute distress ENMT: external ear and nose normal, oropharynx normal Neck: trachea midline, no thyromegaly Respiratory: normal respiratory effort, lungs clear to auscultation (Patient using portable oxygen tank) Cardiovascular: Rate/Rhythm: regular rate and regular rhythm Gastrointestinal (Abdomen): normal bowel sounds, soft, nontender, no hepatosplenomegaly Musculoskeletal: Right foot: lateral foot ulcer is ~2 cm x 1.5 cm. No erythema. Improved granulation at the ulceration site. Neurologic: normal touch/pain/proprioception Psychiatric: A+Ox3, euthymic affect Lymphatic: no cervical or axillary lymphadenopathy Results & Data ([facility]) Vital Signs (Past 12 Hours) Vital Signs Temp Pulse Pulse Resp BP Pulse Ox 03/17/20 12:00 36.8 C 68 18 124/62 95 03/17/20 09:18 71 03/17/20 07:47 37.0 C 66 18 124/62 95 03/17/20 06:53 66 20 92 03/17/20 03:46 36.7 C 72 22 117/67 83 L
[2020-03-17] MEDS: WARFARIN SOD 6 MG TAB PO SCH (18:00)
[2020-03-17] MEDS: ASPIRIN 81 MG ECTAB PO SCH (20:19)
[2020-03-17] MEDS: SENNA 8.6 MG TAB PO SCH (20:20)
[2020-03-17] MEDS: CLOPIDOGREL BISULFATE 75 MG TAB PO SCH (20:20)
--- NOTE | 2020-03-17 21:43 | Hospitalist Progress Note ---
Date of Service March 17, 2020 Assessment & Plan (1) Acute and chronic respiratory failure with hypoxia: earlier this admission acute resp failure was 2nd to volume overload and pneumonitis. etiology of latter?? to cover for possible hospital-acquired pneumonia/gram negative pneumonia he was placed on zosyn on 03/05. He completed 7 days of zosyn (last dose 03/11). severe acute respiratory distress/failure likely due to oxymask coming off for at least 5 minutes on 03/12 profound hypoxia leading to unresponsiveness, hypotension, and new onset a.fib with ischemic changes. suspect that the profound hypoxia was due to oxymask inadvertantly coming off. other possibility is that he had acute MA with new onset a.fib leading to hypoxia but patient denying chest pain after his mentation improved. 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 troponin mariama to 1. repeat EKG following code purple showed normalization of T wave inversions. likely had an NSTEMI in the midst of the event. once moved to PCU he had no chest pain. no further work up given palliative approach, no chest pain/pressure for four days continue antiplatelet therapy he is statin intolerant (3) Lactic acidosis: 2nd to profound hypoxic event resolved (4) Metabolic encephalopathy: 2nd to profound hypoxia -- resolved with O2, BiPAP, etc (5) PAF (paroxysmal atrial fibrillation): new onset in the setting of profound hypoxia and anemia rate controlled transfuse PRBCs - Hb 8.0 yesterday (6) Acute pneumonitis: etiology? inflammatory pneumonitis unlikely - sed rate, crp wnl. viral? due to aspiration event? other? either way pneumonitis improved as seen on chest CT obtained 03/11 completed 7-day course of IV zosyn - antibiotics d/c. appreciate pulmonary assistance (7) Leukocytosis: peripheral path report suggests this is likely leukamoid reaction. no suspicious features involving WBC line. no leukemic features. ESR, Crp, procal all normal. Right foot clean. Blood cx's negative. CT chest 03/11 w/o abscess, empyema, etc WBC 41k 03/15, no consult however due to palliative approach (8) Osteomyelitis: Patient with history of PAD, DM, osteomyelitis of right foot. 02/23/20 -procedure on right foot by Dr Dumont -- s/p - 1. Right foot irrigation and debridement of fifth metatarsal head ulcer measuring 3.0 cm x 2.75 cm full thickness. 2. Right foot irrigation and debridement of lateral distal ulcer including skin, fascia, dermis and joint capsule of fifth metatarsal head measuring 3 cm x 2.75 cm. 3. Application of TheraSkin split thickness skin allograft to fifth metatarsal head region, right foot. MSSA from wound. Telehealth ID consult completed. They recommended 4-6 weeks of cefazolin IV on discharge, 4 weeks would be next week, they were started on 02/[address]. only option to continue IV cefazolin is at SNF, will try for discharge on Friday Dr. Dumont saw patient 03/17, will perform dressing change 03/19, plan to see patient a week after discharge (9) Idiopathic interstitial pneumonia: Chronic. Patient on 4-5L NC at baseline. Follows with Drs. Mcgraw and Shirley Dailey in the office. Typically on prednisone 3mg po daily. Cont Prednisone - weaned to 15mg by Dr Coy 2nd to rheumatoid lung? (10) Essential thrombocytosis: Chronic Resumed hydroxyurea 500mg BID on 03/09/20 (11) Anemia: Chronic. Baseline Hgb 8-9. On hydroxyurea for chronic thrombocytosis. B12/folate on 02/07 were wnl. Ferritin 33 c/w iron deficiency. Stool heme+ Patient is on asa, plavix, AND coumadin - high risk of occult GI bleeding. stool indeed is heme POSITIVE gave venofer 200mg IV on 03/10. Received 1/2 unit PRBCs on 02/22 and developed worsening resp failure requiring diuresis and BiPAP. Uncertain if TACO. regardless needs PRBCs today in light of this AM's events, NSTEMI, etc no further transfusion, plan for hospice (12) Arteriosclerotic cardiovascular disease (ASCVD): Continue ASA, Plavix. Cont to hold MEGAN due to low-normal or low BPs. see NSTEMI above. (13) Benign hypertension: Holding Lisinopril/HCTZ due to low-normal or low BPs. (14) Chronic diastolic CHF (congestive heart failure): acute/chronic. give lasix following PRBCs today. (15) CKD (chronic kidney disease) stage 3, GFR 30-59 ml/min: Baseline Cr 1.3. stable repeat BMP am. (16) Diabetes mellitus: improved with lantus & novolog adjustments. cont to adjust as necessary. Cont to hold home Glipizide and Metformin. (17) Peripheral arterial disease: Chronic. History of stents and angioplasty to bilateral LEs. Patient follows with Dr. Ramos - [facility] [place] [facility]. Continue ASA 81mg and Plavix 75mg daily. (18) History of DVT (deep vein thrombosis): INR therapeutic continue 5mg of coumadin daily (19) Rheumatoid arthritis: On daily Prednisone 3 mg once daily typically. Cont to wean prednisone - down to 15mg/day. (20) Bone lesion: As seen on CTA chest earlier this admission. Seen by Dr Amador at [facility] early this year for these bone lesions. At that time PSA was normal. Etiology uncertain. Primary cancer site undetermined. Patient was not wanting aggressive w/u at that time. Repeat PSA this admission not elevated. Had bladder ca in past; underwent cystoscopy early 2019 w/o recurrence. patient stated emphatically again THIS ADMISSION he does NOT want work-up or Rx for this. 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 family is aware of this. (21) Aortic valve stenosis: Mild-moderate. (22) DVT prophylaxis: Coumadin (23) Goals of care, counseling/discussion: palliative care talked with family and patient plan for hospice either at home or briefly at SNF then go home will take a few days to figure out details CM following Admission and Anticipated Discharge Date Admission Date: February 23, [address] Dumont today, he is pleased with tissue healing he recommends continued antibiotics, follow up with him a week after discharge he will do a wound check, dressing change on Friday, patient can go on Friday patient feels the same today, breathing is stable, he is eating well visited with family a lot today Review of Systems Review of Systems: All systems reviewed & are unremarkable except as noted in Subjective Physical Exam Constitutional: well developed, + thin, + frail appearing and cooperative; no acute distress Eyes: PERRL, conjunctivae normal, anicteric sclerae ENMT: external ear and nose normal, oropharynx normal Neck: trachea midline, no thyromegaly Respiratory: normal respiratory effort; no respiratory distress and no labored breathing Auscultation: + diminished lung sounds Cardiovascular: RRR, no murmur, no edema Gastrointestinal (Abdomen): normal bowel sounds, soft, nontender, no hepatosplenomegaly Musculoskeletal: no cyanosis or clubbing, extremities motor strength 5/5 Head/Neck/Chest: normocephalic, head atraumatic and neck supple Extremities: extremities normal to inspection and + abnormal strength (generalized weakness) Skin: no rashes, warm and dry Neurologic: patellar DTR's 2+ bilat, sensation intact and PERRL, EOMI, accommodation nl, no face palsy, no dysarthria Psychiatric: A+Ox3, euthymic affect Lymphatic: no cervical or axillary lymphadenopathy Results & Data Results & Data ([facility]) Vital Signs (Past 12 Hours) Vital Signs Temp Pulse Pulse Pulse Resp BP BP 03/17/20 19:06 36.8 C 77 23 112/61 03/17/20 17:21 70 03/17/20 15:48 36.6 C 76 24 120/61 03/17/20 12:00 36.8 C 68 18 124/62 Pulse Ox 03/17/20 19:06 87 L 03/17/20 17:21 03/17/20 15:48 85 L 03/17/20 12:00 95 Laboratory Results Laboratory Results - last 24 hr 03/17/20 03/17/20 03/17/20 05:58 07:33 11:52 PT 15.4 H INR 1.5 H POC Glucose 98 191 H 03/17/20 03/17/20 16:22 20:23 PT INR POC Glucose 74 155 H Medications Administered Current Inpatient Medications Acetaminophen (Tylenol) 1,000 mg PO Q8 RA Stop: 03/24/20 21:59 Last Admin: 03/17/20 13:39 Dose: 1,000 mg Documented by: Al Hydrox/Mg Hydrox/Simethicone (Maalox) 15 ml PO Q4H PRN PRN Reason: Heartburn Stop: 03/24/20 17:26 Albuterol (Duoneb) 3 ml NEB QIDR PRN PRN Reason: Shortness Of Breath Or Wheezing Stop: 04/12/20 10:59 Aspirin (Ecotrin Ectab) 81 mg PO HS RA Stop: 03/24/20 20:59 Last Admin: 03/17/20 20:19 Dose: 81 mg Documented by: Bisacodyl (Dulcolax) 10 mg NE DAILY PRN PRN Reason: Constipation Stop: 03/24/20 17:26 Clopidogrel Bisulfate (Plavix) 75 mg PO PM RA Stop: 03/24/20 20:59 Last Admin: 03/17/20 20:20 Dose: 75 mg Documented by: Dextrose (Dextrose 50%) 25 - 50 ml IV UD PRN; Protocol PRN Reason: Hypoglycemia Protocol Stop: 03/24/20 18:22 Last Admin: 02/24/20 21:25 Dose: 50 ml Documented by: Diphenhydramine HCl (Benadryl Capsule) 25 mg PO Q8H PRN PRN Reason: Itching Stop: 03/24/20 17:26 Docusate Sodium (Colace) 100 mg PO BID RA Stop: 03/24/20 20:59 Last Admin: 03/17/20 20:25 Dose: 100 mg Documented by: Glucagon (Glucagen) 1 mg SQ UD PRN; Protocol PRN Reason: Hypoglycemia Protocol Stop: 03/24/20 18:22 Glucose (Dex4 Glucose) 4 - 8 tabs PO UD PRN; Protocol PRN Reason: Hypoglycemia Protocol Stop: 03/24/20 18:22 Glucose (Glucose 40%) 15 - 30 gm PO UD PRN; Protocol PRN Reason: Hypoglycemia Protocol Stop: 03/24/20 18:22 Heparin Sodium (Beef Lung) (Heparin Sod 10 Unit/Ml Flush) 5 ml FLUSH PRN PRN PRN Reason: Flush Stop: 03/27/20 00:08 Last Admin: 03/17/20 08:23 Dose: 5 ml Documented by: Hydroxyurea (Hydrea) 500 mg PO BID RA Stop: 04/08/20 11:29 Last Admin: 03/17/20 20:19 Dose: 500 mg Documented by: Cefazolin Sodium (Ancef 2000mg) 2,000 mg in 15 mls @ 3.75 mls/min IV Q8H [facility] Stop: 04/12/20 07:59 Last Admin: 03/17/20 16:20 Dose: 3.75 mls/min Documented by: Insulin Aspart (Novolog Flexpen) 0 units SC ACHS [facility] Stop: 03/24/20 20:59 Last Admin: 03/17/20 20:25 Dose: 3 units Documented by: Insulin Glargine (Lantus Solostar Pen) 20 units SC BID [facility] Stop: 04/09/20 21:29 Last Admin: 03/17/20 20:23 Dose: 20 units Documented by: Magnesium Hydroxide (Milk Of Magnesia) 30 ml PO Q6H PRN PRN Reason: Constipation Stop: 03/24/20 17:26 Last Admin: 03/05/20 11:24 Dose: 30 ml Documented by: Metoclopramide HCl (Reglan) 10 mg IV Q6H PRN PRN Reason: Nausea And Vomiting Stop: 03/24/20 17:26 Miscellaneous (Carbohydrates For Hypoglycemia) 15 - 30 gm PO UD PRN PRN Reason: Hypoglycemia Protocol Stop: 03/24/20 18:22 Multivitamins (Multivitamin Tab) 1 tab PO QAM [facility] Stop: 03/25/20 08:59 Last Admin: 03/17/20 08:11 Dose: 1 tab Documented by: Mupirocin (Bactroban 2%) 1 appln EXT BID PRN PRN Reason: SKIN BREAKDOWN Stop: 03/24/20 18:58 Naloxone HCl (Narcan) 0.1 mg IV Q5M PRN PRN Reason: Oversedation/Resp Depression Stop: 03/24/20 17:26 Ondansetron HCl (Zofran) 4 mg IV Q6H PRN PRN Reason: Nausea And Vomiting Stop: 03/24/20 17:26 Pantoprazole Sodium (Protonix) 40 mg PO QAM [facility] Stop: 03/28/20 10:59 Last Admin: 03/17/20 08:11 Dose: 40 mg Documented by: Prednisone (Prednisone) 15 mg PO DAILY [facility] Stop: 04/10/20 08:59 Last Admin: 03/17/20 08:11 Dose: 15 mg Documented by: Sennosides (Senokot) 17.2 mg PO HS RA Stop: 03/24/20 20:59 Last Admin: 03/17/20 20:20 Dose: 17.2 mg Documented by: Tamsulosin HCl (Flomax) 0.4 mg PO QAM PRN PRN Reason: unable to void Stop: 03/24/20 17:26 Tramadol HCl (Ultram) 50 - 100 mg PO Q4H PRN PRN Reason: Pain & Pre PT Stop: 03/24/20 17:26 Last Admin: 03/05/20 00:08 Dose: 100 mg Documented by: Warfarin Sodium (Coumadin) 6 mg PO DAILY@1600 RA Stop: 04/16/20 15:59 Last Admin: 03/17/20 18:00 Dose: 6 mg Documented by: PG Care Time/CCT Total # of Minutes Spent Total Time Spent with Patient: Total time spent is greater than 50% in coordination of care (as documented) at patient's floor/unit and/or counseling patient: Coding Level of Care Code 18552 Subseq Hosp Care Lvl 2 Diagnoses Acute and chronic respiratory failure with hypoxia J96.21 NSTEMI (non-ST elevated myocardial infarction) I21.4 Lactic acidosis E87.2 Metabolic encephalopathy G93.41 PAF (paroxysmal atrial fibrillation) I48.0 Acute pneumonitis J18.9 Leukocytosis D72.829 Leukocytosis type: unspecified Osteomyelitis M86.9 Osteomyelitis type: unspecified type Osteomyelitis location: foot Laterality: right Idiopathic interstitial pneumonia J84.111 Essential thrombocytosis D47.3 Anemia D50.9 Anemia type: iron deficiency Iron deficiency anemia type: unspecified iron deficiency Arteriosclerotic cardiovascular disease (ASCVD) I25.10 Benign hypertension I10 Chronic diastolic CHF (congestive heart failure) I50.32 CKD (chronic kidney disease) stage 3, GFR 30-59 ml/min N18.3 Diabetes mellitus E11.9 Diabetes mellitus type: type 2 Diabetes mellitus residential insulin use: without termite control technician use Diabetes mellitus complication status: without complication Peripheral arterial disease I73.9 History of DVT (deep vein thrombosis) Z86.718 Rheumatoid arthritis M06.9 Rheumatoid arthritis location: unspecified site Rheumatoid factor presence: unspecified presence Bone lesion M89.9 Aortic valve stenosis I35.0 Cardiac valve disease etiology: etiology unspecified DVT prophylaxis Z29.9 Goals of care, counseling/discussion Z71.89 (1) Leukocytosis Leukocytosis type: unspecified Qualified Code(s): D72.829 - Elevated white blood cell count, unspecified (2) Osteomyelitis Osteomyelitis type: unspecified type Osteomyelitis location: foot Laterality: right Qualified Code(s): M86.9 - Osteomyelitis, unspecified (3) Anemia Anemia type: iron deficiency Iron deficiency anemia type: unspecified iron deficiency Qualified Code(s): D50.9 - Iron deficiency anemia, unspecified (4) Diabetes mellitus Diabetes mellitus type: type 2 Diabetes mellitus termite control technician insulin use: without residential use Diabetes mellitus complication status: without complica tion Qualified Code(s): E11.9 - Type 2 diabetes mellitus without complications (5) Rheumatoid arthritis Rheumatoid arthritis location: unspecified site Rheumatoid factor presence: unspecified presence Qualified Code(s): M06.9 - Rheumatoid arthritis, unspecified (6) Aortic valve stenosis Cardiac valve disease etiology: etiology unspecified Qualified Code(s): I35.0 - Nonrheumatic aortic (valve) stenosis
[2020-03-18] MEDS: CEFAZOLIN 2000MG 2,000 MG/15 ML SYR IV SCH ×4 (00:24→23:24)
[2020-03-18] MEDS: ACETAMINOPHEN 500 MG TAB PO SCH ×3 (06:06→21:08)
[2020-03-18] MEDS: SENNA 8.6 MG TAB PO SCH (07:59)
[2020-03-18] MEDS: PANTOprazole 40 MG TAB PO SCH (07:59)
[2020-03-18] MEDS: predniSONE 5 MG TAB PO SCH (08:00)
[2020-03-18] MEDS: HYDROXYUREA 500 MG CAP PO SCH ×2 (08:00→21:02)
[2020-03-18] MEDS: MULTIVITAMIN TAB PO SCH (08:00)
[2020-03-18] MEDS: DOCUSATE SODIUM 100 MG CAP PO SCH ×2 (08:01→21:08)
[2020-03-18] MEDS: INSULIN GLARGINE SOLOSTAR 100 UNITS/ML 3 ML PEN SC SCH ×2 (08:01→21:04)
[2020-03-18] MEDS: INSULIN ASPART 100 UNITS/ML 3 ML PEN SC SCH ×4 (08:03→21:05)
[2020-03-18] MEDS: WARFARIN SOD 6 MG TAB PO SCH (16:17)
[2020-03-18] MEDS: ASPIRIN 81 MG ECTAB PO SCH (21:02)
[2020-03-18] MEDS: CLOPIDOGREL BISULFATE 75 MG TAB PO SCH (21:02)
--- NOTE | 2020-03-18 21:57 | Hospitalist Progress Note ---
Date of Service March 18, 2020 Assessment & Plan (1) Acute and chronic respiratory failure with hypoxia: earlier this admission acute resp failure was 2nd to volume overload and pneumonitis. etiology of latter?? to cover for possible hospital-acquired pneumonia/gram negative pneumonia he was placed on zosyn on 03/05. He completed 7 days of zosyn (last dose 03/11). severe acute respiratory distress/failure likely due to oxymask coming off for at least 5 minutes on 03/12 profound hypoxia leading to unresponsiveness, hypotension, and new onset a.fib with ischemic changes. suspect that the profound hypoxia was due to oxymask inadvertantly coming off. other possibility is that he had acute CA with new onset a.fib leading to hypoxia but patient denying chest pain after his mentation improved. 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 troponin mariama to 1. repeat EKG following code purple showed normalization of T wave inversions. likely had an NSTEMI in the midst of the event. once moved to PCU he had no chest pain. no further work up given palliative approach, no chest pain/pressure for four days continue antiplatelet therapy he is statin intolerant (3) Lactic acidosis: 2nd to profound hypoxic event resolved (4) Metabolic encephalopathy: 2nd to profound hypoxia -- resolved with O2, BiPAP, etc (5) PAF (paroxysmal atrial fibrillation): new onset in the setting of profound hypoxia and anemia rate controlled no further issues (6) Acute pneumonitis: etiology? inflammatory pneumonitis unlikely - sed rate, crp wnl. viral? due to aspiration event? other? either way pneumonitis improved as seen on chest CT obtained 03/11 completed 7-day course of IV zosyn - antibiotics d/c. appreciate pulmonary assistance (7) Leukocytosis: peripheral path report suggests this is likely leukamoid reaction. no suspicious features involving WBC line. no leukemic features. ESR, Crp, procal all normal. Right foot clean. Blood cx's negative. CT chest 03/11 w/o abscess, empyema, etc WBC 41k 03/15, no consult however due to palliative approach (8) Osteomyelitis: Patient with history of PAD, DM, osteomyelitis of right foot. 02/23/20 -procedure on right foot by Dr Dumont -- s/p - 1. Right foot irrigation and debridement of fifth metatarsal head ulcer measuring 3.0 cm x 2.75 cm full thickness. 2. Right foot irrigation and debridement of lateral distal ulcer including skin, fascia, dermis and joint capsule of fifth metatarsal head measuring 3 cm x 2.75 cm. 3. Application of TheraSkin split thickness skin allograft to fifth metatarsal head region, right foot. MSSA from wound. Telehealth ID consult completed. They recommended 4-6 weeks of cefazolin IV on discharge, 4 weeks would be next week, they were started on 02/[address]. only option to continue IV cefazolin is at SNF, will try for discharge on Friday would plan to continue Cefazolin until 04/04 and could then go home Dr. Dumont saw patient 03/17, will perform dressing change 03/19, plan to see patient a week after discharge (9) Idiopathic interstitial pneumonia: Chronic. Patient on 4-5L NC at baseline. Follows with Drs. Mcgraw and Shirley Dailey in the office. Typically on prednisone 3mg po daily. Cont Prednisone - weaned to 15mg by Dr Coy 2nd to rheumatoid lung? (10) Essential thrombocytosis: Chronic Resumed hydroxyurea 500mg BID on 03/09/20 (11) Anemia: Chronic. Baseline Hgb 8-9. On hydroxyurea for chronic thrombocytosis. B12/folate on 02/07 were wnl. Ferritin 33 c/w iron deficiency. Stool heme+ Patient is on asa, plavix, AND coumadin - high risk of occult GI bleeding. stool indeed is heme POSITIVE gave venofer 200mg IV on 03/10. Received 1/2 unit PRBCs on 02/22 and developed worsening resp failure requiring diuresis and BiPAP. Uncertain if TACO. regardless needs PRBCs today in light of this AM's events, NSTEMI, etc no further transfusion, plan for hospice (12) Arteriosclerotic cardiovascular disease (ASCVD): Continue ASA, Plavix. Cont to hold MEGAN due to low-normal or low BPs. see NSTEMI above. (13) Benign hypertension: Holding Lisinopril/HCTZ due to low-normal or low BPs. (14) Chronic diastolic CHF (congestive heart failure): acute/chronic. give lasix following PRBCs today. (15) CKD (chronic kidney disease) stage 3, GFR 30-59 ml/min: Baseline Cr 1.3. stable repeat BMP am. (16) Diabetes mellitus: improved with lantus & novolog adjustments. cont to adjust as necessary. Cont to hold home Glipizide and Metformin. (17) Peripheral arterial disease: Chronic. History of stents and angioplasty to bilateral LEs. Patient follows with Dr. Ramos - [facility] [place] [facility]. Continue ASA 81mg and Plavix 75mg daily. (18) History of DVT (deep vein thrombosis): INR therapeutic continue 5mg of coumadin daily (19) Rheumatoid arthritis: On daily Prednisone 3 mg once daily typically. Cont to wean prednisone - down to 15mg/day. (20) Bone lesion: As seen on CTA chest earlier this admission. Seen by Dr Amador at [facility] early this year for these bone lesions. At that time PSA was normal. Etiology uncertain. Primary cancer site undetermined. Patient was not wanting aggressive w/u at that time. Repeat PSA this admission not elevated. Had bladder ca in past; underwent cystoscopy early 2019 w/o recurrence. patient stated emphatically again THIS ADMISSION he does NOT want work-up or Rx for this. 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 family is aware of this. (21) Aortic valve stenosis: Mild-moderate. (22) DVT prophylaxis: Coumadin (23) Goals of care, counseling/discussion: palliative care talked with family and patient plan for hospice either at home or briefly at SNF then go home will take a few days to figure out details CM following Admission and Anticipated Discharge Date Admission Date: February 23, 2020 Subjective patient doing well, eating okay, playing cards with family enjoying his time with family, he knows once he is at [facility] he will not be able to see them no major complaints Review of Systems Review of Systems: All systems reviewed & are unremarkable except as noted in Subjective Physical Exam Constitutional: well developed, + thin, + frail appearing and cooperative; no acute distress Eyes: PERRL, conjunctivae normal, anicteric sclerae ENMT: external ear and nose normal, oropharynx normal Nose: + epistaxis Neck: trachea midline, no thyromegaly Respiratory: normal respiratory effort; no respiratory distress and no labored breathing Auscultation: + diminished lung sounds Cardiovascular: RRR, no murmur, no edema Gastrointestinal (Abdomen): normal bowel sounds, soft, nontender, no hepatosplenomegaly Musculoskeletal: no cyanosis or clubbing, extremities motor strength 5/5 Head/Neck/Chest: normocephalic, head atraumatic and neck supple Extremities: extremities normal to inspection and + abnormal strength (generalized weakness) Skin: no rashes, warm and dry Neurologic: patellar DTR's 2+ bilat, sensation intact and PERRL, EOMI, accommodation nl, no face palsy, no dysarthria Psychiatric: A+Ox3, euthymic affect Lymphatic: no cervical or axillary lymphadenopathy Results & Data Results & Data ([facility]) Vital Signs (Past 12 Hours) Vital Signs Temp Pulse Pulse Resp BP Pulse Ox 03/18/20 19:20 36.6 C 73 18 119/63 92 03/18/20 16:14 36.4 C L 69 20 115/65 88 L 03/18/20 12:29 36.5 C 72 18 125/68 85 L Medications Administered Current Inpatient Medications Acetaminophen (Tylenol) 1,000 mg PO Q8 RA Stop: 03/24/20 21:59 Last Admin: 03/18/20 21:08 Dose: 1,000 mg Documented by: Al Hydrox/Mg Hydrox/Simethicone (Maalox) 15 ml PO Q4H PRN PRN Reason: Heartburn Stop: 03/24/20 17:26 Albuterol (Duoneb) 3 ml NEB QIDR PRN PRN Reason: Shortness Of Breath Or Wheezing Stop: 04/12/20 10:59 Aspirin (Ecotrin Ectab) 81 mg PO HS RA Stop: 03/24/20 20:59 Last Admin: 03/18/20 21:02 Dose: 81 mg Documented by: Bisacodyl (Dulcolax) 10 mg WA DAILY PRN PRN Reason: Constipation Stop: 03/24/20 17:26 Clopidogrel Bisulfate (Plavix) 75 mg PO PM RA Stop: 03/24/20 20:59 Last Admin: 03/18/20 21:02 Dose: 75 mg Documented by: Dextrose (Dextrose 50%) 25 - 50 ml IV UD PRN; Protocol PRN Reason: Hypoglycemia Protocol Stop: 03/24/20 18:22 Last Admin: 02/24/20 21:25 Dose: 50 ml Documented by: Diphenhydramine HCl (Benadryl Capsule) 25 mg PO Q8H PRN PRN Reason: Itching Stop: 03/24/20 17:26 Docusate Sodium (Colace) 100 mg PO BID RA Stop: 03/24/20 20:59 Last Admin: 03/18/20 21:08 Dose: 100 mg Documented by: Glucagon (Glucagen) 1 mg SQ UD PRN; Protocol PRN Reason: Hypoglycemia Protocol Stop: 03/24/20 18:22 Glucose (Dex4 Glucose) 4 - 8 tabs PO UD PRN; Protocol PRN Reason: Hypoglycemia Protocol Stop: 03/24/20 18:22 Glucose (Glucose 40%) 15 - 30 gm PO UD PRN; Protocol PRN Reason: Hypoglycemia Protocol Stop: 03/24/20 18:22 Heparin Sodium (Beef Lung) (Heparin Sod 10 Unit/Ml Flush) 5 ml FLUSH PRN PRN PRN Reason: Flush Stop: 03/27/20 00:08 Last Admin: 03/17/20 08:23 Dose: 5 ml Documented by: Hydroxyurea (Hydrea) 500 mg PO BID RA Stop: 04/08/20 11:29 Last Admin: 03/18/20 21:02 Dose: 500 mg Documented by: Cefazolin Sodium (Ancef 2000mg) 2,000 mg in 15 mls @ 3.75 mls/min IV Q8H RA Stop: 04/12/20 07:59 Last Admin: 03/18/20 16:17 Dose: 3.75 mls/min Documented by: Insulin Aspart (Novolog Flexpen) 0 units SC ACHS RA Stop: 03/24/20 20:59 Last Admin: 03/18/20 21:05 Dose: Not Given Documented by: Insulin Glargine (Lantus Solostar Pen) 20 units SC BID RA Stop: 04/09/20 21:29 Last Admin: 03/18/20 21:04 Dose: 20 units Documented by: Magnesium Hydroxide (Milk Of Magnesia) 30 ml PO Q6H PRN PRN Reason: Constipation Stop: 03/24/20 17:26 Last Admin: 03/05/20 11:24 Dose: 30 ml Documented by: Metoclopramide HCl (Reglan) 10 mg IV Q6H PRN PRN Reason: Nausea And Vomiting Stop: 03/24/20 17:26 Miscellaneous (Carbohydrates For Hypoglycemia) 15 - 30 gm PO UD PRN PRN Reason: Hypoglycemia Protocol Stop: 03/24/20 18:22 Multivitamins (Multivitamin Tab) 1 tab PO QAM [facility] Stop: 03/25/20 08:59 Last Admin: 03/18/20 08:00 Dose: 1 tab Documented by: Mupirocin (Bactroban 2%) 1 appln EXT BID PRN PRN Reason: SKIN BREAKDOWN Stop: 03/24/20 18:58 Naloxone HCl (Narcan) 0.1 mg IV Q5M PRN PRN Reason: Oversedation/Resp Depression Stop: 03/24/20 17:26 Ondansetron HCl (Zofran) 4 mg IV Q6H PRN PRN Reason: Nausea And Vomiting Stop: 03/24/20 17:26 Pantoprazole Sodium (Protonix) 40 mg PO QAM [facility] Stop: 03/28/20 10:59 Last Admin: 03/18/20 07:59 Dose: 40 mg Documented by: Prednisone (Prednisone) 15 mg PO DAILY [facility] Stop: 04/10/20 08:59 Last Admin: 03/18/20 08:00 Dose: 15 mg Documented by: Sennosides (Senokot) 17.2 mg PO HS [facility] Stop: 03/24/20 20:59 Last Admin: 03/18/20 07:59 Dose: 17.2 mg Documented by: Tamsulosin HCl (Flomax) 0.4 mg PO QAM PRN PRN Reason: unable to void Stop: 03/24/20 17:26 Tramadol HCl (Ultram) 50 - 100 mg PO Q4H PRN PRN Reason: Pain & Pre PT Stop: 03/24/20 17:26 Last Admin: 03/05/20 00:08 Dose: 100 mg Documented by: Warfarin Sodium (Coumadin) 6 mg PO DAILY@1600 RA Stop: 04/16/20 15:59 Last Admin: 03/18/20 16:17 Dose: 6 mg Documented by: PG Care Time/CCT Total # of Minutes Spent Total Time Spent with Patient: Total time spent is greater than 50% in coordination of care (as documented) at patient's floor/unit and/or counseling patient: Coding Level of Care Code 95749 Subseq Hosp Care Lvl 2 Diagnoses Acute and chronic respiratory failure with hypoxia J96.21 NSTEMI (non-ST elevated myocardial infarction) I21.4 Lactic acidosis E87.2 Metabolic encephalopathy G93.41 PAF (paroxysmal atrial fibrillation) I48.0 Acute pneumonitis J18.9 Leukocytosis D72.829 Leukocytosis type: unspecified Osteomyelitis M86.9 Osteomyelitis type: unspecified type Osteomyelitis location: foot Laterality: right Idiopathic interstitial pneumonia J84.111 Essential thrombocytosis D47.3 Anemia D50.9 Anemia type: iron deficiency Iron deficiency anemia type: unspecified iron deficiency Arteriosclerotic cardiovascular disease (ASCVD) I25.10 Benign hypertension I10 Chronic diastolic CHF (congestive heart failure) I50.32 CKD (chronic kidney disease) stage 3, GFR 30-59 ml/min N18.3 Diabetes mellitus E11.9 Diabetes mellitus type: type 2 Diabetes mellitus steam finisher insulin use: without fdc use Diabetes mellitus complication status: without complication Peripheral arterial disease I73.9 History of DVT (deep vein thrombosis) Z86.718 Rheumatoid arthritis M06.9 Rheumatoid arthritis location: unspecified site Rheumatoid factor presence: unspecified presence Bone lesion M89.9 Aortic valve stenosis I35.0 Cardiac valve disease etiology: etiology unspecified DVT prophylaxis Z29.9 Goals of care, counseling/discussion Z71.89 (1) Leukocytosis Leukocytosis type: unspecified Qualified Code(s): D72.829 - Elevated white blood cell count, unspecified (2) Osteomyelitis Osteomyelitis type: unspecified type Osteomyelitis location: foot Laterality: right Qualified Code(s): M86.9 - Osteomyelitis, unspecified (3) Anemia Anemia type: iron deficiency Iron deficiency anemia type: unspecified iron deficiency Qualified Code(s): D50.9 - Iron deficiency anemia, unspecified (4) Diabetes mellitus Diabetes mellitus type: type 2 Diabetes mellitus steam finisher insulin use: without fdc use Diabetes mellitus complication status: without complication Qualified Code(s): E11.9 - Type 2 diabetes mellitus without complications (5) Rheumatoid arthritis Rheumatoid arthritis location: unspecified site Rheumatoid factor presence: unspecified presence Qualified Code(s): M06.9 - Rheumatoid arthritis, unspecified (6) Aortic valve stenosis Cardiac valve disease etiology: etiology unspecified Qualified Code(s): I35.0 - Nonrheumatic aortic (valve) stenosis
[2020-03-19] MEDS: ACETAMINOPHEN 500 MG TAB PO SCH ×3 (04:48→21:24)
[2020-03-19 05:10] LABS: INR 1.8 (0.9-1.1); Prothrombin Time 18.4 Seconds (9.0-12.0)
[2020-03-19] MEDS: predniSONE 5 MG TAB PO SCH (08:35)
[2020-03-19] MEDS: MULTIVITAMIN TAB PO SCH (08:36)
[2020-03-19] MEDS: HYDROXYUREA 500 MG CAP PO SCH ×2 (08:36→21:15)
[2020-03-19] MEDS: DOCUSATE SODIUM 100 MG CAP PO SCH ×2 (08:36→21:15)
[2020-03-19] MEDS: CEFAZOLIN 2000MG 2,000 MG/15 ML SYR IV SCH ×2 (08:36→17:18)
[2020-03-19] MEDS: PANTOprazole 40 MG TAB PO SCH (08:37)
[2020-03-19] MEDS: INSULIN ASPART 100 UNITS/ML 3 ML PEN SC SCH ×4 (08:41→21:16)
[2020-03-19] MEDS: INSULIN GLARGINE SOLOSTAR 100 UNITS/ML 3 ML PEN SC SCH ×2 (08:42→21:19)
--- NOTE | 2020-03-19 09:20 | Orthopedic Progress Note ---
Date of Service March 19, 2020 Assessment & Plan (1) Ulcer of right foot: 25 days s/p 1. Right foot irrigation and debridement of fifth metatarsal head ulcer measuring 3.0 cm x 2.75 cm full thickness. 2. Right foot irrigation and debridement of lateral distal ulcer including skin, fascia, dermis and joint capsule of fifth metatarsal head measuring 3 cm x 2.75 cm. 3. Application of TheraSkin split thickness skin allograft to fifth metatarsal head region, right foot. Dressing changed today with Dr. Juju Grimes NWB RLE at all times. Discussed NWB status with the patient and his daughter. He will follow up with Dr. Dumont's office in ~14 days. Admission and Anticipated Discharge Date Admission Date: February 23, 2020 Subjective patient resting comfortably in bed. No complaints today Physical Exam Physical Exam: healing ulceration, no erythema, minimal serous drainage Results & Data ([facility]) Vital Signs (Past 12 Hours) Vital Signs Temp Pulse Pulse Resp BP Pulse Ox 03/19/20 08:00 36.8 C 68 20 105/58 L 88 L 03/19/20 03:30 36.6 C 70 20 113/67 88 L 03/18/20 23:27 88 L 03/18/20 23:20 36.7 C 72 20 111/61 79 L
[2020-03-19] MEDS: WARFARIN SOD 6 MG TAB PO SCH (17:19)
[2020-03-19] MEDS: CLOPIDOGREL BISULFATE 75 MG TAB PO SCH (21:15)
[2020-03-19] MEDS: ASPIRIN 81 MG ECTAB PO SCH (21:15)
[2020-03-19] MEDS: SENNA 8.6 MG TAB PO SCH (21:16)
--- NOTE | 2020-03-19 21:48 | Hospitalist Progress Note ---
Date of Service March 19, 2020 Assessment & Plan (1) Acute and chronic respiratory failure with hypoxia: earlier this admission acute resp failure was 2nd to volume overload and pneumonitis. etiology of latter?? to cover for possible hospital-acquired pneumonia/gram negative pneumonia he was placed on zosyn on 03/05. He completed 7 days of zosyn (last dose 03/11). severe acute respiratory distress/failure likely due to oxymask coming off for at least 5 minutes on 03/12 profound hypoxia leading to unresponsiveness, hypotension, and new onset a.fib with ischemic changes. suspect that the profound hypoxia was due to oxymask inadvertantly coming off. other possibility is that he had acute DE with new onset a.fib leading to hypoxia but patient denying chest pain after his mentation improved. stable for 7 days after BIPAP over night and increase FiO2 has been stable on 5L to 6L palliative asking that hospice agency can provide HFNC if needed once he is at home palliative approach now in place, working on different discharge plans ultimately the patient wants to go home but he is willing to treat osteomyelitis of foot will plan to go to SNF for continued antibiotics and then try to discharge home after that family will work on care givers, will go home on hospice once done at [facility] last dose of Cefazolin would be on 04/04, this would be 6 weeks exactly chronic resp failure is 2nd to ILD - typically on 4 L NC continuously family asked about how long patient has to live on 03/18 explained that he could remain stable for some time as he is eating well his lungs are extremely sensitive to any change, he could deteriorate very rapidly likely that he can complete the course of Cefazolin, they understand that something could happen while there and he would decompensate (2) NSTEMI (non-ST elevated myocardial infarction): marked ischemic changes on EKG during the code purple on 03/12 certainly his anemia and profound hypoxia drove the ischemia. troponin mariama to 1. repeat EKG following code purple showed normalization of T wave inversions. likely had an NSTEMI in the midst of the event. once moved to PCU he had no chest pain. no further work up given palliative approach, no chest pain/pressure for 7 days continue antiplatelet therapy he is statin intolerant (3) Lactic acidosis: 2nd to profound hypoxic event resolved (4) Metabolic encephalopathy: 2nd to profound hypoxia -- resolved with O2, BiPAP, etc (5) PAF (paroxysmal atrial fibrillation): new onset in the setting of profound hypoxia and anemia rate controlled no further issues (6) Acute pneumonitis: etiology? inflammatory pneumonitis unlikely - sed rate, crp wnl. viral? due to aspiration event? other? either way pneumonitis improved as seen on chest CT obtained 03/11 completed 7-day course of IV zosyn - antibiotics d/c. appreciate pulmonary assistance (7) Leukocytosis: peripheral path report suggests this is likely leukamoid reaction. no suspicious features involving WBC line. no leukemic features. ESR, Crp, procal all normal. Right foot clean. Blood cx's negative. CT chest 03/11 w/o abscess, empyema, etc WBC 41k 03/15, no consult however due to palliative approach (8) Osteomyelitis: Patient with history of PAD, DM, osteomyelitis of right foot. 02/23/20 -procedure on right foot by Dr Dumont -- s/p - 1. Right foot irrigation and debridement of fifth metatarsal head ulcer measuring 3.0 cm x 2.75 cm full thickness. 2. Right foot irrigation and debridement of lateral distal ulcer including skin, fascia, dermis and joint capsule of fifth metatarsal head measuring 3 cm x 2.75 cm. 3. Application of TheraSkin split thickness skin allograft to fifth metatarsal head region, right foot. MSSA from wound. Telehealth ID consult completed. They recommended 4-6 weeks of cefazolin IV on discharge, 4 weeks would be next week, they were started on 02/21 6 weeks is 04/04 which would be the appropriate end date Has PICC in place. only option to continue IV cefazolin is at SNF, will try for discharge on Friday would plan to continue Cefazolin until 04/04 and could then go home Dr. Dumont saw patient 03/17, will perform dressing change 03/19, plan to see patient one week after discharge (9) Idiopathic interstitial pneumonia: Chronic. Patient on 4-5L NC at baseline. Follows with Drs. Mcgraw and Shirley Dailey in the office. Typically on prednisone 3mg po daily. Cont Prednisone - weaned to 15mg by Dr Coy 2nd to rheumatoid lung? (10) Essential thrombocytosis: Chronic Resumed hydroxyurea 500mg BID on 03/09/20 (11) Anemia: Chronic. Baseline Hgb 8-9. On hydroxyurea for chronic thrombocytosis. B12/folate on 02/07 were wnl. Ferritin 33 c/w iron deficiency. Stool heme+ Patient is on asa, plavix, AND coumadin - high risk of occult GI bleeding. stool indeed is heme POSITIVE gave venofer 200mg IV on 03/10. Received 1/2 unit PRBCs on 02/22 and developed worsening resp failure requiring diuresis and BiPAP. Uncertain if TACO. regardless needs PRBCs today in light of this AM's events, NSTEMI, etc no further transfusion, plan for hospice (12) Arteriosclerotic cardiovascular disease (ASCVD): Continue ASA, Plavix. Cont to hold MEGAN due to low-normal or low BPs. see NSTEMI above. (13) Benign hypertension: Holding Lisinopril/HCTZ due to low-normal or low BPs. (14) Chronic diastolic CHF (congestive heart failure): acute/chronic. give lasix following PRBCs today. (15) CKD (chronic kidney disease) stage 3, GFR 30-59 ml/min: Baseline Cr 1.3. stable repeat BMP am. (16) Diabetes mellitus: improved with lantus & novolog adjustments. cont to adjust as necessary. Cont to hold home Glipizide and Metformin. (17) Peripheral arterial disease: Chronic. History of stents and angioplasty to bilateral LEs. Patient follows with Dr. Ramos - [facility] Cardiology. Continue ASA 81mg and Plavix 75mg daily. (18) History of DVT (deep vein thrombosis): INR therapeutic continue 5mg of coumadin daily (19) Rheumatoid arthritis: On daily Prednisone 3 mg once daily typically. Cont to wean prednisone - down to 15mg/day. (20) Bone lesion: As seen on CTA chest earlier this admission. Seen by Dr Amador at [facility] early this year for these bone lesions. At that time PSA was normal. Etiology uncertain. Primary cancer site undetermined. Patient was not wanting aggressive w/u at that time. Repeat PSA this admission not elevated. Had bladder ca in past; underwent cystoscopy early 2019 w/o recurrence. patient stated emphatically again THIS ADMISSION he does NOT want work-up or Rx for this. 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 family is aware of this. (21) Aortic valve stenosis: Mild-moderate. (22) DVT prophylaxis: Coumadin (23) Goals of care, counseling/discussion: palliative care talked with family and patient plan for hospice either at home or briefly at SNF then go home will take a few days to figure out details CM following Admission and Anticipated Discharge Date Admission Date: February 23, 2020 Subjective no major issues today family visited with patient planning for discharge to [facility] tomorrow Review of Systems Review of Systems: All systems reviewed & are unremarkable except as noted in Subjective Respiratory: + dyspnea on exertion; no cough and no dyspnea Cardiovascular: no chest pain and no edema Gastrointestinal: no abdominal pain, no nausea, no vomiting, no constipation and no diarrhea/loose stools Physical Exam Constitutional: well developed, + thin, + frail appearing and cooperative; no acute distress Eyes: PERRL, conjunctivae normal, anicteric sclerae ENMT: external ear and nose normal, oropharynx normal Neck: trachea midline, no thyromegaly Respiratory: normal respiratory effort; no respiratory distress and no labored breathing Auscultation: + diminished lung sounds Cardiovascular: RRR, no murmur, no edema Gastrointestinal (Abdomen): normal bowel sounds, soft, nontender, no hepatosplenomegaly Musculoskeletal: no cyanosis or clubbing, extremities motor strength 5/5 Head/Neck/Chest: normocephalic, head atraumatic and neck supple Extremities: extremities normal to inspection and + abnormal strength (generalized weakness) Skin: no rashes, warm and dry Neurologic: patellar DTR's 2+ bilat, sensation intact and PERRL, EOMI, accommodation nl, no face palsy, no dysarthria Psychiatric: A+Ox3, euthymic affect Lymphatic: no cervical or axillary lymphadenopathy Results & Data Results & Data ([facility]) Vital Signs (Past 12 Hours) Vital Signs Temp Pulse Pulse Resp BP Pulse Ox 03/19/20 19:40 36.5 C 75 19 110/65 84 L 03/19/20 16:31 87 L 03/19/20 16:24 36.3 C L 82 18 110/64 81 L 03/19/20 11:16 36.6 C 77 22 106/58 L 89 L Laboratory Results Laboratory Results - last 24 hr 03/19/20 03/19/20 03/19/20 04:46 07:22 11:14 PT 18.4 H INR 1.8 H POC Glucose 142 H 261 H 03/19/20 03/19/20 16:43 20:14 PT INR POC Glucose 223 H 187 H Medications Administered Current Inpatient Medications Acetaminophen (Tylenol) 1,000 mg PO Q8 RA Stop: 03/24/20 21:59 Last Admin: 03/19/20 21:24 Dose: 1,000 mg Documented by: Al Hydrox/Mg Hydrox/Simethicone (Maalox) 15 ml PO Q4H PRN PRN Reason: Heartburn Stop: 03/24/20 17:26 Albuterol (Duoneb) 3 ml NEB QIDR PRN PRN Reason: Shortness Of Breath Or Wheezing Stop: 04/12/20 10:59 Aspirin (Ecotrin Ectab) 81 mg PO HS RA Stop: 03/24/20 20:59 Last Admin: 03/19/20 21:15 Dose: 81 mg Documented by: Bisacodyl (Dulcolax) 10 mg SD DAILY PRN PRN Reason: Constipation Stop: 03/24/20 17:26 Clopidogrel Bisulfate (Plavix) 75 mg PO PM RA Stop: 03/24/20 20:59 Last Admin: 03/19/20 21:15 Dose: 75 mg Documented by: Dextrose (Dextrose 50%) 25 - 50 ml IV UD PRN; Protocol PRN Reason: Hypoglycemia Protocol Stop: 03/24/20 18:22 Last Admin: 02/24/20 21:25 Dose: 50 ml Documented by: Diphenhydramine HCl (Benadryl Capsule) 25 mg PO Q8H PRN PRN Reason: Itching Stop: 03/24/20 17:26 Docusate Sodium (Colace) 100 mg PO BID RA Stop: 03/24/20 20:59 Last Admin: 03/19/20 21:15 Dose: 100 mg Documented by: Glucagon (Glucagen) 1 mg SQ UD PRN; Protocol PRN Reason: Hypoglycemia Protocol Stop: 03/24/20 18:22 Glucose (Dex4 Glucose) 4 - 8 tabs PO UD PRN; Protocol PRN Reason: Hypoglycemia Protocol Stop: 03/24/20 18:22 Glucose (Glucose 40%) 15 - 30 gm PO UD PRN; Protocol PRN Reason: Hypoglycemia Protocol Stop: 03/24/20 18:22 Heparin Sodium (Beef Lung) (Heparin Sod 10 Unit/Ml Flush) 5 ml FLUSH PRN PRN PRN Reason: Flush Stop: 03/27/20 00:08 Last Admin: 03/17/20 08:23 Dose: 5 ml Documented by: Hydroxyurea (Hydrea) 500 mg PO BID [facility] Stop: 04/08/20 11:29 Last Admin: 03/19/20 21:15 Dose: 500 mg Documented by: Cefazolin Sodium (Ancef 2000mg) 2,000 mg in 15 mls @ 3.75 mls/min IV Q8H RA Stop: 04/12/20 07:59 Last Admin: 03/19/20 17:18 Dose: 3.75 mls/min Documented by: Insulin Aspart (Novolog Flexpen) 0 units SC ACHS [facility] Stop: 03/24/20 20:59 Last Admin: 03/19/20 21:16 Dose: 5 units Documented by: Insulin Glargine (Lantus Solostar Pen) 20 units SC BID [facility] Stop: 04/09/20 21:29 Last Admin: 03/19/20 21:19 Dose: 20 units Documented by: Magnesium Hydroxide (Milk Of Magnesia) 30 ml PO Q6H PRN PRN Reason: Constipation Stop: 03/24/20 17:26 Last Admin: 03/05/20 11:24 Dose: 30 ml Documented by: Metoclopramide HCl (Reglan) 10 mg IV Q6H PRN PRN Reason: Nausea And Vomiting Stop: 03/24/20 17:26 Miscellaneous (Carbohydrates For Hypoglycemia) 15 - 30 gm PO UD PRN PRN Reason: Hypoglycemia Protocol Stop: 03/24/20 18:22 Multivitamins (Multivitamin Tab) 1 tab PO QAM [facility] Stop: 03/25/20 08:59 Last Admin: 03/19/20 08:36 Dose: 1 tab Documented by: Mupirocin (Bactroban 2%) 1 appln EXT BID PRN PRN Reason: SKIN BREAKDOWN Stop: 03/24/20 18:58 Naloxone HCl (Narcan) 0.1 mg IV Q5M PRN PRN Reason: Oversedation/Resp Depression Stop: 03/24/20 17:26 Ondansetron HCl (Zofran) 4 mg IV Q6H PRN PRN Reason: Nausea And Vomiting Stop: 03/24/20 17:26 Pantoprazole Sodium (Protonix) 40 mg PO QAM RA Stop: 03/28/20 10:59 Last Admin: 03/19/20 08:37 Dose: 40 mg Documented by: Prednisone (Prednisone) 15 mg PO DAILY [facility] Stop: 04/10/20 08:59 Last Admin: 03/19/20 08:35 Dose: 15 mg Documented by: Sennosides (Senokot) 17.2 mg PO HS [facility] Stop: 03/24/20 20:59 Last Admin: 03/19/20 21:16 Dose: 17.2 mg Documented by: Tamsulosin HCl (Flomax) 0.4 mg PO QAM PRN PRN Reason: unable to void Stop: 03/24/20 17:26 Tramadol HCl (Ultram) 50 - 100 mg PO Q4H PRN PRN Reason: Pain & Pre PT Stop: 03/24/20 17:26 Last Admin: 03/05/20 00:08 Dose: 100 mg Documented by: Warfarin Sodium (Coumadin) 6 mg PO DAILY@1600 [facility] Stop: 04/16/20 15:59 Last Admin: 03/19/20 17:19 Dose: 6 mg Documented by: PG Care Time/CCT Total # of Minutes Spent Total Time Spent with Patient: Total time spent is greater than 50% in coordination of care (as documented) at patient's floor/unit and/or counseling patient: Coding Level of Care Code 70048 Subseq Hosp Care Lvl 2 Diagnoses Acute and chronic respiratory failure with hypoxia J96.21 NSTEMI (non-ST elevated myocardial infarction) I21.4 Lactic acidosis E87.2 Metabolic encephalopathy G93.41 PAF (paroxysmal atrial fibrillation) I48.0 Acute pneumonitis J18.9 Leukocytosis D72.829 Leukocytosis type: unspecified Osteomyelitis M86.9 Laterality: right Osteomyelitis location: foot Osteomyelitis type: unspecified type Idiopathic interstitial pneumonia J84.111 Essential thrombocytosis D47.3 Anemia D50.9 Anemia type: iron deficiency Iron deficiency anemia type: unspecified iron deficiency Arteriosclerotic cardiovascular disease (ASCVD) I25.10 Benign hypertension I10 Chronic diastolic CHF (congestive heart failure) I50.32 CKD (chronic kidney disease) stage 3, GFR 30-59 ml/min N18.3 Diabetes mellitus E11.9 Diabetes mellitus complication status: without complication Diabetes mellitus intermediate insulin use: without intermediate manager use Diabetes mellitus type: type 2 Peripheral arterial disease I73.9 History of DVT (deep vein thrombosis) Z86.718 Rheumatoid arthritis M06.9 Rheumatoid arthritis location: unspecified site Rheumatoid factor presence: unspecified presence Bone lesion M89.9 Aortic valve stenosis I35.0 Cardiac valve disease etiology: etiology unspecified DVT prophylaxis Z29.9 Goals of care, counseling/discussion Z71.89 (1) Rheumatoid arthritis Rheumatoid arthritis location: unspecified site Rheumatoid factor presence: unspecified presence Qualified Code(s): M06.9 - Rheumatoid arthritis, unspecified (2) Diabetes mellitus Diabetes mellitus complication status: without complication Diabetes mellitus intermediate manager insulin use: without intermediate manager use Diabetes mellitus type: type 2 Qualified Code(s): E11.9 - Type 2 diabetes mellitus without complications (3) Anemia Anemia type: iron deficiency Iron deficiency anemia type: unspecified iron deficiency Qualified Code(s): D50.9 - Iron deficiency anemia, unspecified (4) Aortic valve stenosis Cardiac valve disease etiology: etiology unspecified Qualified Code(s): I35.0 - Nonrheumatic aortic (valve) stenosis (5) Leukocytosis Leukocytosis type: unspecified Qualified Code(s): D72.829 - Elevated white blood cell count, unspecified (6) Osteomyelitis Laterality: right Osteomyelitis location: foot Osteomyelitis type: unspecified type Qualified Code(s): M86.9 - Osteomyelitis, unspecified
[2020-03-20] MEDS: CEFAZOLIN 2000MG 2,000 MG/15 ML SYR IV SCH ×3 (00:56→16:04)
[2020-03-20] MEDS: ACETAMINOPHEN 500 MG TAB PO SCH ×2 (05:44→16:04)
[2020-03-20] MEDS: INSULIN ASPART 100 UNITS/ML 3 ML PEN SC SCH ×2 (08:11→12:18)
[2020-03-20] MEDS: MULTIVITAMIN TAB PO SCH (08:12)
[2020-03-20] MEDS: PANTOprazole 40 MG TAB PO SCH (08:12)
[2020-03-20] MEDS: INSULIN GLARGINE SOLOSTAR 100 UNITS/ML 3 ML PEN SC SCH (08:12)
[2020-03-20] MEDS: HYDROXYUREA 500 MG CAP PO SCH (08:13)
[2020-03-20] MEDS: predniSONE 5 MG TAB PO SCH (08:13)
[2020-03-20] MEDS: DOCUSATE SODIUM 100 MG CAP PO SCH (08:13)
--- NOTE | 2020-03-20 11:34 | Discharge Summary ---
Date of Service March 20, 2020 Admission HPI Per Admitting Provider This is a patient who has undergone previous right foot toe amputations and an I & D of the lateral aspect of the foot, the most recent was ~6 weeks ago. The lateral aspect of the foot hasn't had a healing of the ulceration and he is currently being set up for surgical tx. Principal Diagnosis Right foot acute osteomyelitis, Acute and chronic respiratory failure with hypoxia Discharge Exam Constitutional + thin; no acute distress Eyes + anicteric sclerae Neck trachea midline, no thyromegaly Respiratory normal respiratory effort Auscultation: + diminished lung sounds (throughout); no crackles and no rhonchi Cardiovascular Rate/Rhythm: regular rate and regular rhythm Heart Sounds: + murmur (2/6 CATHLEEN at RUSB) Extremities: no edema Chest (Breasts) Chest: normal inspection of chest Gastrointestinal (Abdomen) normal bowel sounds, soft, nontender, no hepatosplenomegaly Musculoskeletal Extremities: + extremities abnormal to inspection (right foot with dressing in place), no cyanosis and no clubbing Skin no rashes, warm and dry Neurologic moves all extremities and awake; no focal motor deficits Psychiatric A+Ox3, euthymic affect Lymphatic no lymphedema Discharge Data Allergies Allergy/AdvReac Type Severity Reaction Status Date / Time Sulfa (Sulfonamide Allergy Intermediate HIVES Verified 02/23/20 10:25 Antibiotics) atorvastatin AdvReac Mild LEG CRAMPS Verified 02/23/20 10:25 cilostazol AdvReac Mild DIARRHEA Verified 02/23/20 10:25 Consultations 02/23/20 17:27 Consult Case Management - Discharge Planning Routine Consult Hospitalist Routine 02/24/20 10:53 Consult Pulmonology Routine 03/02/20 08:03 Consult Infectious Diseases Routine 03/12/20 18:46 Consult Palliative Care Routine 03/16/20 11:41 Consult Orthopedic Surgery Routine Procedures Performed Operation Date: 02/23/20 11:30 Actual Procedures p Right Foot Irrigation and Debridement Fascia, dermis, and Joint Capsule of 5th Metatarsal Head Ulcer Measuring 3cm x 2.75cm Fascia, dermis, and Joint Capsule(Right) - Osman Hall DO Ordered Studies 02/23/20 05:00 US - OR guided needle placemen Routine 02/23/20 20:02 CT chest wo con Urgent 03/11/20 10:13 CT chest wo con Urgent CXR x 9 Hospital Course (1) Acute and chronic respiratory failure with hypoxia: earlier this admission acute resp failure was 2nd to volume overload and pneumonitis. etiology of latter?? to cover for possible hospital-acquired pneumonia/gram negative pneumonia he was placed on zosyn on 03/05. He completed 7 days of zosyn (last dose 03/11). severe acute respiratory distress/failure likely due to oxymask coming off for at least 5 minutes on 03/12 profound hypoxia leading to unresponsiveness, hypotension, and new onset a.fib with ischemic changes. suspect that the profound hypoxia was due to oxymask inadvertantly coming off. other possibility is that he had acute LA with new onset a.fib leading to hypoxia but patient denying chest pain after his mentation improved. stable for 7 days after BIPAP over night and increase FiO2 has been stable on 5L to 6L NC palliative asking that hospice agency can provide HFNC if needed once he is at home palliative approach now in place ultimately the patient wants to go home but he is willing to treat osteomyelitis of foot will plan to go to SNF for continued antibiotics and then try to discharge home after that family will work on care givers, will go home on hospice once done at [facility] last dose of Cefazolin would be on 04/04, this would be 6 weeks exactly chronic resp failure is 2nd to ILD - typically on 4 L NC continuously family asked about how long patient has to live on 03/18 explained that he could remain stable for some time as he is eating well his lungs are extremely sensitive to any change, he could deteriorate very rapidly likely that he can complete the course of Cefazolin, they understand that jacob ething could happen while there and he would decompensate (2) NSTEMI (non-ST elevated myocardial infarction): marked ischemic changes on EKG during the code purple on 03/12 certainly his anemia and profound hypoxia drove the ischemia. troponin mariama to 1. repeat EKG following code purple showed normalization of T wave inversions. likely had an NSTEMI in the midst of the event. once moved to PCU he had no chest pain. no further work up given palliative approach, no chest pain/pressure for 7 days continue antiplatelet therapy he is statin intolerant (3) Lactic acidosis: 2nd to profound hypoxic event resolved (4) Metabolic encephalopathy: 2nd to profound hypoxia -- resolved with O2, BiPAP, etc (5) PAF (paroxysmal atrial fibrillation): new onset in the setting of profound hypoxia and anemia rate controlled no further issues (6) Acute pneumonitis: etiology? inflammatory pneumonitis unlikely - sed rate, crp wnl. viral? due to aspiration event? other? either way pneumonitis improved as seen on chest CT obtained 03/11 completed 7-day course of IV zosyn - antibiotics d/c. appreciate pulmonary assistance (7) Leukocytosis: peripheral path report suggests this is likely leukamoid reaction. no suspicious features involving WBC line. no leukemic features. ESR, Crp, procal all normal. Right foot clean. Blood cx's negative. CT chest 03/11 w/o abscess, empyema, etc WBC 41k 03/15, no further workup however due to palliative approach (8) Osteomyelitis: Patient with history of PAD, DM, osteomyelitis of right foot. 02/23/20 -procedure on right foot by Dr Hall -- s/p - 1. Right foot irrigation and debridement of fifth metatarsal head ulcer measuring 3.0 cm x 2.75 cm full thickness. 2. Right foot irrigation and debridement of lateral distal ulcer including skin, fascia, dermis and joint capsule of fifth metatarsal head measuring 3 cm x 2.75 cm. 3. Application of TheraSkin split thickness skin allograft to fifth metatarsal head region, right foot. MSSA from wound. Telehealth ID consult completed. They recommended 4-6 weeks of cefazolin IV on discharge, 4 weeks would be next week, they were started on 02/21 6 weeks is 04/04 which would be the appropriate end date Has PICC in place. only option to continue IV cefazolin is at SNF would plan to continue Cefazolin until 04/04 and could then go home Dr. Hall saw patient 03/17, will perform dressing change 03/19, plan to see patient one week after discharge (9) Idiopathic interstitial pneumonia: Chronic. Patient on 4-5L NC at baseline. Follows with Drs. Mcgraw and Shirley Dailey in the office. Typically on prednisone 3mg po daily. Cont Prednisone - weaned to 15mg by Dr Coy 2nd to rheumatoid lung? (10) Essential thrombocytosis: Chronic Resumed hydroxyurea 500mg BID on 03/09/20 but monitor CBC and hold hydroxyurea if counts drop again (11) Anemia: Chronic. Baseline Hgb 8-9. On hydroxyurea for chronic thrombocytosis. B12/folate on 02/07 were wnl. Ferritin 33 c/w iron deficiency. Stool heme+ Patient is on asa, plavix, AND coumadin - high risk of occult GI bleeding. stool indeed is heme POSITIVE gave venofer 200mg IV on 03/10. Received 1/2 unit PRBCs on 02/22 and developed worsening resp failure requiring diuresis and BiPAP. Uncertain if TACO. regardless did receive PRBCs here in setting of NSTEMI no further transfusion, plan for hospice eventually (12) Arteriosclerotic cardiovascular disease (ASCVD): Continue ASA, Plavix. Cont to hold MEGAN due to low-normal or low BPs. see NSTEMI above. (13) Benign hypertension: Holding Lisinopril/HCTZ due to low-normal or low BPs. Will not give on discharge (14) Chronic diastolic CHF (congestive heart failure): acute/chronic. Now resolved, is euvolemic (15) CKD (chronic kidney disease) stage 3, GFR 30-59 ml/min: Baseline Cr 1.3. stable Follow BMP once weekly while on antibiotics (16) Diabetes mellitus: improved with lantus & novolog adjustments. cont to adjust as necessary. can restart home Metformin, but dc glipizide and continue Lantus (17) Peripheral arterial disease: Chronic. History of stents and angioplasty to bilateral LEs. Patient follows with Dr. Ramos - [facility] [place] Cardiology. Continue ASA 81mg and Plavix 75mg daily. (18) History of DVT (deep vein thrombosis): INR slightly low at 1.8 on 03/19 continue 6mg of coumadin daily Check INR on 03/21 (19) Rheumatoid arthritis: On daily Prednisone 3 mg once daily typically. Cont to wean prednisone - down to 15mg/day. (20) Bone lesion: As seen on CTA chest earlier this admission.Multiple bony lesions Seen by Dr Amador at [facility] early this year for these bone lesions. At that time PSA was normal. Etiology uncertain. Primary cancer site undetermined. Patient was not wanting aggressive w/u at that time. Repeat PSA this admission not elevated. Had bladder ca in past; underwent cystoscopy early 2019 w/o recurrence. patient stated emphatically again THIS ADMISSION he does NOT want work-up or Rx for this. 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 family is aware of this. (21) Aortic valve stenosis: Mild-moderate. (22) DVT prophylaxis: Coumadin (23) Goals of care, counseling/discussion: palliative care talked with family and patient plan for hospice either at home or briefly at SNF then go home after skilled stay to continue treatment with IV antibiotics for OM Discharge today Total Time Total Time Spent Total Time Spent (In Minutes): >30 min Total Time Includes: Examination of the Patient, Discharge Planning and Medication Reconciliation Discharge Plan Discharge Items Reason For Visit: Encounter for Other Specified Surgical Aftercare Discharge Diagnosis: right foot ulceration Activity: Per Instructions section Call non-emergency contact if: your pain is not controlled, your pain is worsening and your temperature is above 101 Follow-up/Referrals: Emeterio Hardin MD [Primary Care Provider] - Addtl Attending Provider Instructions: ACTIVITY RECOMMENDATIONS: Limitations: No weight bearing to affected limb at all times. SPECIAL CARE INSTRUCTIONS: * Some drainage onto the dressing is normal and is no cause for alarm. * Some swelling is natural especially after walking. * When resting, keep your foot elevated above the level of your heart. * Call [facility] if you notice: -Increased drainage -Fever over 101 degrees F -Severe constant pain BANDAGE: * Leave bandage/cast in place unless otherwise directed. * Keep bandage/cast dry at all times. FOLLOW UP VISIT WITH DR. HALL If appointment is not already scheduled: Please call [facility] after you get home today to schedule a follow-up appointment for [address] Hall at . Pending Studies at Discharge: No Medications and DC Order Prescriptions: No Action hydroxyurea 500 mg capsule 500 mg PO BID RF: 0 (DME) OneTouch Verio test strips Strip See Rx Instructions .ROUTE .MEDSUPPLY Qty: 100 RF: 3 prednisone 1 mg tablet 3 mg PO QPM RF: 0 furosemide [Lasix] 20 mg tablet 20 mg PO QAM Qty: 90 RF: 0 ibuprofen 200 mg Tablet 200 mg PO Q6H PRN (Reason: Pain) RF: 0 glipizide [Glucotrol XL] 5 mg tablet extended release 24hr 5 mg PO BID RF: 0 clopidogrel 75 mg tablet 75 mg PO PM RF: 0 aspirin [Aspir-81] 81 mg tablet,delayed release (DR/EC) 81 mg PO HS RF: 0 warfarin 5 mg tablet 7.5 mg PO Q OTHER DAY RF: 0 lisinopril-hydrochlorothiazide 20-25 mg tablet 1 tab PO QAM RF: 0 daptomycin 500 mg recon [place]n 400 mg IV DAILY 38 Days Qty: 38 RF: 0 warfarin 5 mg Tablet 5 mg PO Q OTHER DAY RF: 0 potassium gluconate 595 mg (99 mg) Tablet Extended Release 595 mg PO PM RF: 0 mupirocin 2 % ointment 1 appln TOP BID PRN (Reason: skin breakdown) RF: 0 metformin 1,000 mg Tablet 1,000 mg PO BID RF: 0 oxycodone 5 mg capsule 5 mg PO Q6H PRN (Reason: pain) Qty: 10 RF: 0 Admission Data Admit Date/Time: 02/23/20 13:41 Attending Provider: Rosi Trinh Admit Provider: Osman Hall Primary Care Provider: Emeterio Hardin Other Providers: [facility] ; [facility] ; Ravi Valladares ; Bijan Monroe ; Natalie Garcia ; Day Mabry ; Tevin Wilkerson ; Tonio Dobbs ; Shannan Bruno ; Casimiro Vega ; Maximiliano Hernandez ; Ajay Kirkpatrick ; Alisha Gray ; Rosi Trinh ; Marie Garcia ; Amaris Becerra ; Luis Cardoza ; Kasey Aguilar ; Dhara Braun ; Timoteo Preston ; Hasmukh Wiseman ; Burt Reese ; Blanca Enriquez ; Manuel Oneal ; Edi Wilson ; Tevin Salazar ; Nestor Murrell ; Andrey Ryan ; Pamela Muir ; David Muir ; Nura Hightower ; Chaparro Fitzpatrick ; Darin Mansfield ; Stanislav Turner ; Bijan Lawson ; Martha Vu ; Sameer Hoang ; Giorgi Coy ; Ayo Bautista ; Vianney Kim ; Blair Braun I. ; Salvador Jones II ; Mary Colmenares ; Shun Hwang ; Meagan Tang ; Osman Hall Coding Level of Care Code D/C Day Management >30 mins Diagnoses Acute and chronic respiratory failure with hypoxia J96.21 NSTEMI (non-ST elevated myocardial infarction) I21.4 Lactic acidosis E87.2 Metabolic encephalopathy G93.41 PAF (paroxysmal atrial fibrillation) I48.0 Acute pneumonitis J18.9 Leukocytosis D72.829 Leukocytosis type: unspecified Osteomyelitis M86.9 Osteomyelitis type: unspecified type Osteomyelitis location: foot Laterality: right Idiopathic interstitial pneumonia J84.111 Essential thrombocytosis D47.3 Anemia D50.9 Anemia type: iron deficiency Iron deficiency anemia type: unspecified iron deficiency Arteriosclerotic cardiovascular disease (ASCVD) I25.10 Benign hypertension I10 Chronic diastolic CHF (congestive heart failure) I50.32 CKD (chronic kidney disease) stage 3, GFR 30-59 ml/min N18.3 Diabetes mellitus E11.9 Diabetes mellitus type: type 2 Diabetes mellitus assistant terminal manager insulin use: without assistant terminal manager use Diabetes mellitus complication status: without complication Peripheral arterial disease I73.9 History of DVT (deep vein thrombosis) Z86.718 Rheumatoid arthritis M06.9 Rheumatoid arthritis location: unspecified site Rheumatoid factor presence: unspecified presence Bone lesion M89.9 Aortic valve stenosis I35.0 Cardiac valve disease etiology: etiology unspecified DVT prophylaxis Z29.9 Goals of care, counseling/discussion Z71.89
[2020-03-20 12:06] VITALS: PULSE 66; TEMP 97.5; O2SAT 91
[2020-03-20 14:55] VITALS: BP 104/63
[2020-03-20] MEDS: WARFARIN SOD 6 MG TAB PO SCH (17:46)
== END 2020-03-20 16:45 | DRG 264 ==
LOC: ASU 09:33 → 3E 13:41 → SUATTDRO 13:41 → 2S 21:54 → 2E 02-25 22:14 → 3W 03-03 10:52 → 2S 03-12 09:17